=== PATIENT | female | born 1985 | race African-American/Black ===

== ENCOUNTER 2017-04-16 13:30 | Emergency (ER) | payer MEDICAID, SELFPAY ==
[2017-04-16 13:30] VITALS: BP 124/61; PULSE 90; RESP 16; TEMP 36.9; O2SAT 99; BMI 22.1
[2017-04-16 14:43] LABS: Absolute Lymphocyte Count 0.87 X10^3/ul (0.83-4.51); Absolute Neutrophil Count 3.5 X10^3/uL (2.0-7.7); Hematocrit 40.2 % (37-47); Hemoglobin 13.2 g/dl (12.0-15.0); Lymphocyte # 0.87 X10^3/ul (4.0); Lymphocyte % 17.8 % (19-41); Mean Corp Hgb Conc 32.8 g/gl (32-36); Mean Corpuscular Volume 85.4 fL (81-99); Mean Platelet Vol. 9.2 fl (6.2-12.0); Monocyte# 0.49 X10^3/uL; Neutrophil # 3.53 X10^3/uL (2.7-7.7); Neutrophil % 72.2 % (47-70); POSITIVE COUNT NO; POSITIVE DIFFERENTIAL NO; POSITIVE MORPHOLOGY NO; Platelet Count 165 K/mm3 (150-450); RBC Distribution Width CV 12.9 % (11.6-14.6); RBC Distribution Width SD 40.6 fl (35.1-43.9); Red Blood Count 4.71 M/mm3 (4.2-5.4); White Blood Count 4.9 K/mm3 (4.4-11.0)
[2017-04-16] MEDS: Dicyclomine 20 MG/2 ML Vial IM (14:43)
[2017-04-16] MEDS: 0.9% Normal Saline 1,000 ML 1000 ML IV (14:43)
[2017-04-16 15:00] LABS: Mucous, Urine 0 SEEN /hpf (<or=2+)
[2017-04-16 15:06] LABS: Anion Gap 8 (5-15); BUN 11 mg/dL (7-18); BUN/Creat Ratio 12.6 RATIO (10-20); Calcium,Total 8.6 mg/dL (8.5-10.1); Chloride 104 mmol/L (98-107); Creatinine, Serum 0.87 mg/dL (0.55-1.02); EST Glomerular Filtration Rate 81 mL/min (>60); Est Glom Filt Rate - Afr Amer 98 mL/min (>60); Estimated Creatinine Clearance 78.22 ml/min; Glucose 96 mg/dL (70-110); Potassium 3.6 mmol/L (3.5-5.1); Sodium Level 137 mmol/L (136-145)
[2017-04-16 15:10] LABS: Color, Urine Yellow (Yellow); Glucose, Dipstick Normal (Normal); Leukocyte Esterase-Dipstick 100 /ul (Negative); Nitrite-Dipstick Negative (Negative); Occult Blood-Urine 150 /ul (Negative); Protein-Dipstick 100 mg/dl (Negative); Specific Gravity, Urine 1.015 (1.002-1.030); Urine Bilirubin Dipstick Negative (Negative); Urine Clarity Sl. Cloudy (Clear); Urine Urobilinogen Normal (Normal)
[2017-04-16 15:10] LABS: Pregnancy, Serum, hCG Quali. NEGATIVE Negative (0-9 Nonpreg)
[2017-04-16 15:32] LABS: Ketone-Dipstick 150 mg/dl (Negative); Squamous Epithelial Cells - UA 10-25 SEEN /hpf (5-10); White Blood Cells 0-5 SEEN /hpf (0-5)
--- NOTE | 2017-04-16 15:32 | ED.RN ---
KETONES 150, MD AWARE.
[2017-04-16 15:35] LABS: Red Blood Cells-Urine 5-10 SEEN /hpf (0-5)
[2017-04-16 15:36] LABS: Bacteria RARE /hpf (None Seen)
--- NOTE | 2017-04-16 16:20 | ED.VISSUMM ---
- ER Visit Summary Date of Service: 04/16/17 Chief Complaint: [Vomiting and diarrhea] History of Present Illness: The patient is a 31 F [presents to the emergency department with vomiting that started 3 days ago. Patient was seen in the emergency department last evening and medicated until her nausea and vomiting resolved and was discharged home. Patient had some basic labs are were normal. Patient does have a history of cyclic vomiting syndrome and states that every couple of months she gets these attacks. Patient describes some diffuse abdominal cramping. She denies any fever.] Physical Examination: [HEENT-PERRLA, EOMI. Cranial nerves II through XII grossly intact. TMs clear. Mucous membranes moist. No adenopathy. Cardiovascular-regular rate and rhythm without murmur or ectopy Lungs-clear to auscultation, chest wall stable without crepitus or subcu emphysema Abdomen-normoactive bowel sounds, soft. Patient has some diffuse tenderness on palpation. There is no rebound, rigidity, or peritoneal signs.. Extremities-intact ?4, normal range of motion, normal pulses, atraumatic] Test Results: [CBC with it was normal. Chemistries were normal. Urinalysis was unremarkable other than 150 ketones. HCG was negative.] Emergency Department Course and Treatment: [Patient had a liter normal same fluid bolus given. Patient was given Phenergan. Patient continued complaint of dry heaves. Patient was then written for Ativan, Benadryl, and Thorazine.] Treatment Plan: [CARE patient will be turned over to evening physician awaiting repeat evaluation after treatment.] Disposition: [Pending] Impression: [Gastroenteritis Cyclic vomiting syndrome] This note was generated with [employer] dictation software. It may contain incorrect words, spelling, and punctuation that were not noted in review of the chart prior to signing ED Disposition - Plan for ED Patient: Chief Complaint: Nausea/Vomiting/Diarrhea Referrals: Sergio Grover DO [Primary Care Provider] -
[2017-04-16] MEDS: LORazepam 2 MG/ML Syringe 0.5 MG IV (17:19)
[2017-04-16] MEDS: Ondansetron 4 MG/2 ML Vial IV (17:19)
[2017-04-16 19:18] VITALS: BP 109/71; PULSE 96; RESP 14; O2SAT 100
--- NOTE | 2017-04-16 20:31 | ED.DEP ---
ED Disposition - Plan for ED Patient: Disposition: Home or Assisted Living Chief Complaint: Nausea/Vomiting/Diarrhea Instructions: ED Nausea Vomiting Referrals: Sergio Grover DO [Primary Care Provider] - As soon as possible
[2017-04-16 20:33] VITALS: RESP 16
== END 2017-04-16 21:26 | disposition home or self-care (01) ==
PROVIDERS: Emergency Provider Emergency Medicine; Family Provider Student in an Organized Health Care Education/Training Program; PCP Student in an Organized Health Care Education/Training Program
DX: K52.9 Noninfective gastroenteritis and colitis, unspecified (principal); G43.A0 Cyclical vomiting, in migraine, not intractable
CPT/HCPCS: 80048; 81001; 84703; 85025; 99283; J7050; A4216; J2405; J3490

== ENCOUNTER 2017-04-18 03:20 | Emergency (ER) | payer MEDICAID, SELFPAY ==
[2017-04-18 03:21] VITALS: BP 118/71; PULSE 61; RESP 20; TEMP 36.6; O2SAT 100; BMI 22.6
--- NOTE | 2017-04-18 03:32 | ED.DCSUM_ITS ---
- ER Visit Summary Date of Service: 04/18/17 Chief Complaint: [] Vomiting History of Present Illness: The patient is a 31 F [] complaining of nausea/ vomiting/diarrhea beginning 4 days ago. Patient reports a history of cyclic vomiting of unknown etiology. She reports nonproductive cough, myalgias, chills. Denies fevers. No other complaints at this time. Physical Examination: [] Middle-aged female in no acute distress. Cardiovascular exam is regular rate and rhythm. Lungs are clear to auscultation. Abdomen is soft and nontender. Test Results: [] CBC within normal limits. BMP within normal limits with exception of a potassium 3.0. Flu swab negative. Emergency Department Course and Treatment: [] Patient given intravenous fluids, Phenergan, Toradol. On serial exam patient required an additional dose of Phenergan. On repeat serial exam she had resolution of her cyclical vomiting and was amenable to discharge. Her low potassium is likely a manifestation of her vomiting. She was able to pass a p.o. challenge prior to discharge. She was given a single dose of KCl. She was encouraged to follow-up with her primary care physician. She was given a prescription for Phenergan. Treatment Plan: [] Follow-up with PCP. Disposition: [] Discharge, stable. Impression: [] Vomiting History of cyclical vomiting Hypokalemia This note was generated with [employer] dictation software. It may contain incorrect words, spelling, and punctuation that were not noted in review of the chart prior to signing ED Disposition - Plan for ED Patient: Chief Complaint: Nausea/Vomiting Referrals: Sergio Grover DO [Primary Care Provider] -
[2017-04-18 03:56] LABS: Absolute Lymphocyte Count 1.81 X10^3/ul (0.83-4.51); Absolute Neutrophil Count 3.1 X10^3/uL (2.0-7.7); Basophil# 0.04 X10^3/uL; Basophil% 0.7 % (0-1); Hematocrit 40.6 % (37-47); Hemoglobin 13.5 g/dl (12.0-15.0); Lymphocyte # 1.81 X10^3/ul (4.0); Lymphocyte % 30.9 % (19-41); Mean Corp Hgb Conc 33.3 g/gl (32-36); Mean Corpuscular Hgb 27.8 pg (27.0-32.0); Mean Corpuscular Volume 83.5 fL (81-99); Mean Platelet Vol. 9.1 fl (6.2-12.0); Monocyte# 0.87 X10^3/uL; Monocyte% 14.9 % (0-10); Neutrophil # 3.13 X10^3/uL (2.7-7.7); Neutrophil % 53.5 % (47-70); Platelet Count 159 K/mm3 (150-450); RBC Distribution Width CV 12.6 % (11.6-14.6); RBC Distribution Width SD 37.9 fl (35.1-43.9); Red Blood Count 4.86 M/mm3 (4.2-5.4); White Blood Count 5.9 K/mm3 (4.4-11.0)
[2017-04-18 04:00] LABS: POSITIVE COUNT NO; POSITIVE DIFFERENTIAL NO; POSITIVE MORPHOLOGY NO
[2017-04-18] MEDS: Ketorolac 15 MG/ML Vial IV (04:07)
[2017-04-18 04:08] LABS: Anion Gap 10 (5-15); BUN 8 mg/dL (7-18); BUN/Creat Ratio 9.9 RATIO (10-20); Calcium,Total 8.3 mg/dL (8.5-10.1); Chloride 103 mmol/L (98-107); EST Glomerular Filtration Rate 89 mL/min (>60); Est Glom Filt Rate - Afr Amer 107 mL/min (>60); Estimated Creatinine Clearance 85.06 ml/min; Glucose 97 mg/dL (70-110); Sodium Level 138 mmol/L (136-145)
[2017-04-18] MEDS: 0.9% Normal Saline 1,000 ML 1000 ML IV (04:09)
--- NOTE | 2017-04-18 05:35 | ED.DEP ---
ED Disposition - Plan for ED Patient: Disposition: Home or Assisted Living Chief Complaint: Nausea/Vomiting Instructions: ED Diet Vomiting Diarrhea Prescriptions: ProMETHAzine [Phenergan] 25 mg PO Q6H PRN PRN #15 tab PRN Reason: Nausea Referrals: Sergio Grover DO [Primary Care Provider] -
[2017-04-18 07:30] VITALS: BP 129/89; PULSE 74; RESP 15; TEMP 36.6; O2SAT 99
== END 2017-04-18 07:36 | disposition home or self-care (01) ==
PROVIDERS: Emergency Provider Emergency Medicine; Family Provider Student in an Organized Health Care Education/Training Program; PCP Student in an Organized Health Care Education/Training Program
DX: R11.2 Nausea with vomiting, unspecified (principal); E87.6 Hypokalemia; R19.7 Diarrhea, unspecified
CPT/HCPCS: 80048; 85025; 87804; 96361; 96374; 96375; 96376; 99285; J7030; A4216

== ENCOUNTER 2017-04-19 05:04 | Emergency (ER) | payer MEDICAID, SELFPAY ==
[2017-04-19 05:04] VITALS: BP 134/93; PULSE 58; RESP 20; TEMP 37.1; O2SAT 100; BMI 23.0
[2017-04-19] MEDS: 0.9% Normal Saline 1,000 ML 150 ML IV (05:57)
[2017-04-19 06:17] LABS: Anion Gap 10 (5-15); BUN 7 mg/dL (7-18); BUN/Creat Ratio 9.8 RATIO (10-20); Chloride 104 mmol/L (98-107); Creatinine, Serum 0.71 mg/dL (0.55-1.02); EST Glomerular Filtration Rate 102 mL/min (>60); Est Glom Filt Rate - Afr Amer 123 mL/min (>60); Estimated Creatinine Clearance 95.84 ml/min; Glucose 97 mg/dL (70-110); Potassium 3.3 mmol/L (3.5-5.1); Sodium Level 139 mmol/L (136-145)
[2017-04-19] MEDS: Dicyclomine 20 MG/2 ML Vial IM (07:05)
[2017-04-19 07:06] VITALS: BP 105/53; PULSE 61; RESP 14; O2SAT 96
--- NOTE | 2017-04-19 08:13 | ED.DCSUM_ITS ---
- ER Visit Summary Date of Service: 04/19/17 Chief Complaint: Nausea and vomiting History of Present Illness: The patient is a 31 F with a reported history of cyclic vomiting. Patient states she has had nausea and vomiting for the past 6 days. She had diarrhea early in the course of the illness, but none recently. She states her children at home are sick. She has been seen in the ER 3 times already this week for the same. Patient states she is trying the Phenergan suppositories but still having vomiting at home. Physical Examination: Vital signs are unremarkable. Patient's lying in bed no acute distress. Heart is regular rate and rhythm. Lungs are clear. Abdomen is soft with mild diffuse tenderness. There is no guarding or rebound. Hypoactive bowel sounds are noted. Test Results: Chemistry studies repeated today reveal potassium of 3.3. This is improved from a potassium of 3.0 yesterday. Emergency Department Course and Treatment: Patient is given IV fluids and Phenergan. On repeat evaluation she states her nausea is improved but she is having a lot of abdominal pain. She describes cramping and aching throughout. She is given a dose of Bentyl. On repeat evaluation she was willing to try ice chips. She states she was only able to take a couple of these and then her symptoms returned. At this time she will be given Compazine and Benadryl. If this is unsuccessful she will likely require another dose of Thorazine. Patient be signed out to oncoming physician for final recheck and disposition. Treatment Plan: [] Disposition: [] Impression: Cyclic vomiting This note was generated with [employer] dictation software. It may contain incorrect words, spelling, and punctuation that were not noted in review of the chart prior to signing ED Disposition - Plan for ED Patient: Chief Complaint: Nausea/Vomiting/Diarrhea Referrals: Sergio Grover DO [Primary Care Provider] -
[2017-04-19] MEDS: DiphenhydrAMINE 50 MG/ML Syringe 25 MG IV (08:31)
[2017-04-19] MEDS: proCHLORPERazine 10 MG/2 ML Vial IV (08:31)
--- NOTE | 2017-04-19 10:02 | ED.VISSUMM ---
- ER Visit Summary Date of Service: 04/19/17 Chief Complaint: [Vomiting] History of Present Illness: The patient is a 31 F [presented with vomiting and history of cyclic vomiting syndrome. Care of patient turned over to me this morning awaiting reevaluation after patient was medicated with antiemetics and given IV fluids. After her last dose of medications patient is able to tolerate p.o.'s and she is feeling improved. She has had no further vomiting. At this point patient would like to try to go home. Patient has no abdominal discomfort.] Physical Examination: [] Test Results: [] Emergency Department Course and Treatment: [] Treatment Plan: [We will give up prescription for Phenergan suppositories] Disposition: [Discharged home in stable condition] Impression: [Vomiting Cyclic vomiting syndrome] This note was generated with [email or web address] dictation software. It may contain incorrect words, spelling, and punctuation that were not noted in review of the chart prior to signing ED Disposition - Plan for ED Patient: Chief Complaint: Nausea/Vomiting/Diarrhea Referrals: Sergio Grover DO [Primary Care Provider] -
--- NOTE | 2017-04-19 10:04 | ED.DEP ---
ED Disposition - Plan for ED Patient: Chief Complaint: Nausea/Vomiting/Diarrhea Instructions: ED Diet Vomiting Diarrhea, ED Vomiting Diarrhea Nonspecific Ad Prescriptions: ProMETHAzine [Phenergan Suppository] 25 mg RECTAL Q6H PRN PRN #10 suppos. PRN Reason: Nausea Referrals: Sergio Grover DO [Primary Care Provider] - 3-5 Days
[2017-04-19 10:11] VITALS: BP 116/79; PULSE 84; RESP 16; O2SAT 98
== END 2017-04-19 10:12 | disposition home or self-care (01) ==
PROVIDERS: Emergency Provider Emergency Medicine; Family Provider Student in an Organized Health Care Education/Training Program; PCP Student in an Organized Health Care Education/Training Program
DX: G43.A0 Cyclical vomiting, in migraine, not intractable (principal); K58.9 Irritable bowel syndrome, unspecified; Z90.49 Acquired absence of other specified parts of digestive tract; Z87.898 Personal history of other specified conditions; Z87.891 Personal history of nicotine dependence; F12.90 Cannabis use, unspecified, uncomplicated
CPT/HCPCS: 80048; 96361; 96372; 96374; 96375; 99284; J7030; A4216

== ENCOUNTER 2017-04-20 00:38 | Emergency (ER) | payer MEDICAID, SELFPAY ==
[2017-04-20 00:39] VITALS: BP 137/93; PULSE 90; RESP 18; TEMP 37.3; O2SAT 98; BMI 22.0
[2017-04-20] MEDS: Ketorolac 15 MG/ML Vial IV (01:58)
[2017-04-20] MEDS: 0.9% Normal Saline 1,000 ML 1000 ML IV (01:58)
[2017-04-20 02:10] LABS: Anion Gap 8 (5-15); BUN 5 mg/dL (7-18); BUN/Creat Ratio 5.4 RATIO (10-20); Calcium,Total 8.3 mg/dL (8.5-10.1); Chloride 105 mmol/L (98-107); Creatinine, Serum 0.93 mg/dL (0.55-1.02); EST Glomerular Filtration Rate 75 mL/min (>60); Est Glom Filt Rate - Afr Amer 90 mL/min (>60); Estimated Creatinine Clearance 73.17 ml/min; Glucose 119 mg/dL (70-110); Potassium 3.9 mmol/L (3.5-5.1); Sodium Level 140 mmol/L (136-145)
[2017-04-20 03:12] VITALS: BP 104/65; PULSE 67; RESP 18; O2SAT 100
--- NOTE | 2017-04-20 03:15 | ED.VISSUMM ---
- ER Visit Summary Date of Service: 04/20/17 Chief Complaint: [] Nausea and vomiting History of Present Illness: The patient is a 31 F [] who is a frequent visitor to this emergency department with a history of cyclic vomiting presenting today with vomiting. Patient denies fevers. Reports diffuse general abdominal discomfort. No other complaints at this time. Physical Examination: [] Afebrile, vital signs stable. Young female no acute distress. Cardiovascular exam is regular rate and rhythm. Lungs are clear to auscultation. Abdomen is soft with mild diffuse tenderness. No guarding or rebound tenderness. Remainder of exam is unremarkable. Test Results: [] Basic metabolic panel is negative. Emergency Department Course and Treatment: [] Patient given intravenous fluids and Phenergan. On serial exam she had improvement of symptoms. She requested one additional dose of Phenergan and this request was granted. She is discharged to follow-up with her primary care physician. Treatment Plan: [] Follow-up with primary care physician. Disposition: [] Discharge, stable. Impression: [] Vomiting Abdominal pain History of cyclic vomiting This note was generated with [employer] dictation software. It may contain incorrect words, spelling, and punctuation that were not noted in review of the chart prior to signing ED Disposition - Plan for ED Patient: Chief Complaint: Nausea/Vomiting Referrals: Sergio Grover DO [Primary Care Provider] -
--- NOTE | 2017-04-20 03:17 | ED.DEP ---
ED Disposition - Plan for ED Patient: Disposition: Home or Assisted Living Chief Complaint: Nausea/Vomiting Instructions: ED Nausea Vomiting Referrals: Sergio Grover DO [Primary Care Provider] -
--- NOTE | 2017-04-20 03:28 | ED.RN ---
THIS RN TO BEDSIDE TO DISCHARGE PATIENT. PATIENT STATES THAT SHE WANTS TO BE ADMITTED, DR. ESTRADA MADE AWARE.
[2017-04-20 03:40] VITALS: PULSE 67; RESP 16; O2SAT 100
== END 2017-04-20 03:40 | disposition home or self-care (01) ==
PROVIDERS: Emergency Provider Emergency Medicine; Family Provider Student in an Organized Health Care Education/Training Program; PCP Student in an Organized Health Care Education/Training Program
DX: R10.9 Unspecified abdominal pain (principal); G43.A0 Cyclical vomiting, in migraine, not intractable
CPT/HCPCS: 80048; 99283; J7030; A4216

== ENCOUNTER 2017-05-02 15:24 | Emergency (ER) | payer MEDICAID, SELFPAY ==
[2017-05-02 15:26] VITALS: BP 118/83; PULSE 83; RESP 18; TEMP 36.7; O2SAT 100; BMI 23.6
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
[2017-05-02] MEDS: Ibuprofen 600 MG Tablet PO (16:28)
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
[2017-05-02 17:01] VITALS: BP 116/77; PULSE 85; RESP 16; O2SAT 99
== END 2017-05-02 17:01 | disposition home or self-care (01) ==
PROVIDERS: Emergency Provider Emergency Medicine; Family Provider Student in an Organized Health Care Education/Training Program; PCP Student in an Organized Health Care Education/Training Program
DX: S09.90XA Unspecified injury of head, initial encounter (principal); S16.1XXA Strain of muscle, fascia and tendon at neck level, initial encounter; S29.011A Strain of muscle and tendon of front wall of thorax, initial encounter; V53.5XXA Driver of pick-up truck or van injured in collision with car, pick-up truck or van in traffic accident, initial encounter; Y93.9 Activity, unspecified; Y92.410 Unspecified street and highway as the place of occurrence of the external cause; Y99.8 Other external cause status
CPT/HCPCS: 71046; 99284

== ENCOUNTER 2017-06-15 14:31 | Emergency (ER) | payer MEDICAID, SELFPAY ==
[2017-06-15 14:34] VITALS: BP 111/97; PULSE 67; RESP 16; TEMP 36.6; O2SAT 97; BMI 21.5
[2017-06-15] MEDS: LORazepam 2 MG/ML Syringe 0.5 MG IV (15:18)
[2017-06-15] MEDS: 0.9% Normal Saline 1,000 ML 1000 ML IV (15:18)
[2017-06-15] MEDS: Ondansetron 4 MG/2 ML Vial IV (15:18)
[2017-06-15 15:29] LABS: Anion Gap 13 (5-15); BUN 14 mg/dL (7-18); BUN/Creat Ratio 14.5 RATIO (10-20); Calcium,Total 9.2 mg/dL (8.5-10.1); Chloride 106 mmol/L (98-107); Creatinine, Serum 0.96 mg/dL (0.55-1.02); EST Glomerular Filtration Rate 72 mL/min (>60); Est Glom Filt Rate - Afr Amer 87 mL/min (>60); Estimated Creatinine Clearance 70.88 ml/min; Glucose 132 mg/dL (74-106); Potassium 3.3 mmol/L (3.5-5.1); Sodium Level 142 mmol/L (136-145)
[2017-06-15 15:42] LABS: Pregnancy, Serum, hCG Quali. NEGATIVE Negative (0-9 Nonpreg)
--- NOTE | 2017-06-15 15:52 | ED.DCSUM_ITS ---
- ER Visit Summary Date of Service: 06/15/17 Chief Complaint: Nausea, vomiting, diarrhea History of Present Illness: The patient is a 31 F who reports a history of cyclic vomiting. Patient states that she was nervous about an upcoming trip to [place] and took a dose of her Zoloft yesterday. She states she does not take it regularly because it makes her ill. She also used marijuana. She reports having nausea, vomiting, and diarrhea since that time. She tried taking Phenergan at home but was unable to keep it down. She denies fever but does report generalized abdominal pain. Patient has had prior cholecystectomy. She denies possibility of . Physical Examination: Vital signs are unremarkable. Patient's resting comfortably in no acute distress. Head neck examination is unremarkable. She does have moist mucous membranes. Heart is regular rate and rhythm. Lung sounds are clear. Abdomen is soft with mild diffuse tenderness to palpation. There is no guarding or rebound. Hypoactive bowel sounds are present throughout. Test Results: Chemistry studies are significant for potassium slightly low at 3.3. Her glucose is 132. test is negative. Emergency Department Course and Treatment: Patient is given IV fluids, Zofran, and Ativan. On repeat evaluation she is resting comfortably. She is easily awoken. She reports that she feels improved but still has some nausea. She be a prescription for Zofran ODT at home. Treatment Plan: [] Disposition: Discharge Impression: Vomiting, improved This note was generated with [employer] dictation software. It may contain incorrect words, spelling, and punctuation that were not noted in review of the chart prior to signing ED Disposition - Plan for ED Patient: Chief Complaint: Nausea/Vomiting/Diarrhea Referrals: Sergio Grover DO [Primary Care Provider] -
[2017-06-15 15:55] VITALS: BP 91/60; PULSE 100; RESP 16; O2SAT 97
--- NOTE | 2017-06-15 16:00 | ED.DEP ---
ED Disposition - Plan for ED Patient: Disposition: Home or Assisted Living Chief Complaint: Nausea/Vomiting/Diarrhea Instructions: ED Nausea Vomiting Prescriptions: Ondansetron [Zofran Odt] 4 mg PO Q8H PRN PRN #10 tablet PRN Reason: Nausea Referrals: Sergio Grover DO [Primary Care Provider] - 5-7 Days Additional Instructions: Refrain from using marijuana as this can worsen your nausea and vomiting.
[2017-06-15 16:13] VITALS: BP 92/68; PULSE 100; RESP 16; O2SAT 97
== END 2017-06-15 16:40 | disposition home or self-care (01) ==
PROVIDERS: Emergency Provider Emergency Medicine; Family Provider Student in an Organized Health Care Education/Training Program; PCP Student in an Organized Health Care Education/Training Program
DX: R11.2 Nausea with vomiting, unspecified (principal); R19.7 Diarrhea, unspecified; R10.9 Unspecified abdominal pain; Z90.49 Acquired absence of other specified parts of digestive tract
CPT/HCPCS: 80048; 84703; 96361; 96374; 96375; 99283; J7030; J2405

== ENCOUNTER 2017-06-16 16:00 | Emergency (ER) | payer MEDICAID, SELFPAY ==
[2017-06-16 16:02] VITALS: BP 141/93; PULSE 71; RESP 16; TEMP 37.1; O2SAT 100; BMI 20.7
--- NOTE | 2017-06-16 16:44 | ED.VISSUMM ---
- ER Visit Summary Date of Service: 06/16/17 Chief Complaint: Nausea, vomiting History of Present Illness: The patient is a 31 F history of cyclic vomiting syndrome presents to the emergency department nausea and vomiting. Patient thinks it is related to her starting her Zoloft. She had a trip coming up and was feeling very anxious about it. She started taking her Zoloft on Friday. That is when her vomiting started. She was also using marijuana onset she denies any fevers or chills. The patient was actually seen here yesterday. She was treated with fluids and medications with some improvement, but she states it was transient. The vomiting started again this morning. She does have some cramping abdominal pain. She denies any diarrhea. She denies any fevers or chills. The patient has had multiple significant workups for this and there has never been acute etiology found. Physical Examination: Vital signs reviewed General: Well-nourished, well-developed Head: Normocephalic, atraumatic Eyes: Pupils equal and reactive, extraocular muscles intact Neck, supple, no lymphadenopathy Heart: Regular rate and rhythm Respiratory: No distress, clear bilaterally Abdomen: Soft, nontender, nondistended, no peritoneal signs Back: Nontender Extremities: Nontender, no edema, no cords Skin: Normal color no rash Neuro: Alert and oriented, no focal or lateralizing deficits Test Results: [] Emergency Department Course and Treatment: The patient has a history of cyclic vomiting syndrome. IV was established. She was placed on cyclic vomiting protocol. She continued to have nausea despite the Ativan and Zofran. She was given Thorazine and Benadryl. Labs were obtained were unremarkable. Her abdomen is benign. On reevaluation, her nausea has abated. She was able to drink without issue. At this time, I do for the patient is safe for discharge. She will be prescribed Phenergan. She will return with any worsening symptoms. Treatment Plan: [] Disposition: Discharge Impression:. Exacerbation of cyclic vomiting syndrome This note was generated with [employer] dictation software. It may contain incorrect words, spelling, and punctuation that were not noted in review of the chart prior to signing ED Disposition - Plan for ED Patient: Disposition: Home or Assisted Living Chief Complaint: Nausea/Vomiting Instructions: ED Nausea Vomiting Prescriptions: proMETHazine suppository [Phenergan Suppository] 25 mg RECTAL Q6H PRN PRN #6 suppos. PRN Reason: Nausea Referrals: Sergio Grover DO [Primary Care Provider] -
[2017-06-16] MEDS: Lactated Ringers 1,000 ML 999 ML IV (16:55)
[2017-06-16] MEDS: LORazepam 2 MG/ML Syringe 1 MG IV (17:01)
[2017-06-16] MEDS: Ondansetron 4 MG/2 ML Vial IV (17:01)
[2017-06-16 17:14] LABS: Absolute Lymphocyte Count 2.15 X10^3/ul (0.83-4.51); Absolute Neutrophil Count 9.3 X10^3/uL (2.0-7.7); Basophil# 0.02 X10^3/uL; Basophil% 0.2 % (0-1); Eosinophil# 0.01 X10^3/uL; Eosinophils% 0.1 % (0-5); Hematocrit 38.9 % (37-47); Hemoglobin 13.5 g/dl (12.0-15.0); Lymphocyte # 2.15 X10^3/ul (4.0); Lymphocyte % 17.5 % (19-41); Mean Corp Hgb Conc 34.7 g/gl (32-36); Mean Corpuscular Hgb 29.5 pg (27.0-32.0); Mean Corpuscular Volume 85.1 fL (81-99); Mean Platelet Vol. 9.3 fl (6.2-12.0); Monocyte# 0.74 X10^3/uL; Neutrophil # 9.31 X10^3/uL (2.7-7.7); Platelet Count 274 K/mm3 (150-450); RBC Distribution Width CV 13.1 % (11.6-14.6); RBC Distribution Width SD 40.3 fl (35.1-43.9); Red Blood Count 4.57 M/mm3 (4.2-5.4); White Blood Count 12.3 K/mm3 (4.4-11.0)
[2017-06-16 17:16] LABS: POSITIVE COUNT NO; POSITIVE DIFFERENTIAL NO; POSITIVE MORPHOLOGY NO
[2017-06-16 17:36] LABS: ALB/GLOB Ratio 1.1 RATIO (0.9-2.4); AST(SGOT) 27 U/L (15-37); Alanine Aminotransfer ALT/SGPT 28 U/L (13-56); Albumin, Serum 4.3 g/dL (3.2-5.0); Alkaline Phosphatase 64 U/L (45-117); Anion Gap 11 (5-15); BUN 13 mg/dL (7-18); BUN/Creat Ratio 15.2 RATIO (10-20); Chloride 103 mmol/L (98-107); Creatinine, Serum 0.86 mg/dL (0.55-1.02); EST Glomerular Filtration Rate 82 mL/min (>60); Est Glom Filt Rate - Afr Amer 99 mL/min (>60); Glucose 101 mg/dL (74-106); Potassium 3.3 mmol/L (3.5-5.1); Protein, Total 8.3 g/dL (6.4-8.2); Sodium Level 139 mmol/L (136-145)
[2017-06-16 18:48] VITALS: BP 121/69; PULSE 70; RESP 16; O2SAT 98
== END 2017-06-16 18:49 | disposition home or self-care (01) ==
PROVIDERS: Emergency Provider Emergency Medicine; Family Provider Student in an Organized Health Care Education/Training Program; PCP Student in an Organized Health Care Education/Training Program
DX: G43.A0 Cyclical vomiting, in migraine, not intractable (principal)
CPT/HCPCS: 80053; 85025; 96361; 96374; 96375; 99282; A4216; J2405; J3490

== ENCOUNTER 2017-06-18 06:50 | Emergency (ER) | payer MEDICAID, SELFPAY ==
[2017-06-18 06:51] VITALS: BP 124/97; PULSE 94; RESP 20; TEMP 36.8; O2SAT 95; BMI 21.2
--- NOTE | 2017-06-18 07:16 | ED.VISSUMM ---
- ER Visit Summary Date of Service: 06/18/17 Chief Complaint: Abdominal pain with nausea and vomiting History of Present Illness: The patient is a 31 F who is had numerous visits for abdominal pain nausea vomiting since beginning year and latter part of 2017. Patient reports throbbing global headache. She denies photophobia, stiffness of her neck, or any change in vision. She reports the abdominal pain is not different than prior episodes. She denies blood or coffee-ground emesis. She denies black or maroon stool. Last bowel movement. It was yesterday. She denies fever, chills night sweats. Uncertain whether she has had weight loss. She denies any dysuria, frequency, urgency or hematuria. Physical Examination: Vital signs are normal. During the history and physical there was no eye contact. Matter fact she opened her eyes only once. Head is atraumatic nor cephalic. Pupils equal reactive. Extra muscles are intact. TMs are normal. Mucosa appears to be moist. Uncertain whether this is due to the fact that she recently attempted to drink something or vomited. Heart is regular without murmur, gallop or rub. S1 and S2 are normal. Lungs are clear to auscultation with good movement of air bilaterally. Abdomen is scaphoid with diminished bowel sounds. Patient has pain out of proportion to tactile stimuli. There are no dermatologic lesions noted. Patient is alert and oriented ?3. Motor is 5 over 5. Sensory is intact. DTRs are symmetric with no clonus or Babinski sign. Cranial 2 through 12 are intact. Cerebellar testing is normal. Test Results: Urine is positive for ketones. Specific gravity is 1.015. Emergency Department Course and Treatment: Cyclic vomiting order set was initiated. UA was obtained to assess specific gravity and ketones. She reports she has never been seen at behavioral health services. She was under the care of Dr. Oliver prior to him relocating. She has not seen anyone for her cyclic vomiting recently. Since there is no determine etiology for prior workups and the fact that she had no eye contact and her abdominal exam is disproportionate to tactile stimuli will check behavior health if she is willing to follow-up. Treatment Plan: Patient failed p.o. challenge after stage I of cyclic vomiting order set. She was administered the meds for stage II. She has been observed for greater than 6 hours with no vomiting since the first episode. We gave her health did see her. Krishan informed me that she has been anxious and canceled a family trip because of the nausea vomiting. She is receptive to speak with personnel at [facility]. Disposition: Discharged home in stable improved condition with outpatient [facility] referral Impression: 1. Abdominal pain with nausea and vomiting secondary to cyclic vomiting 2. Anxiety 3. Suspect undiagnosed affective disorder This note was generated with [employer] dictation software. It may contain incorrect words, spelling, and punctuation that were not noted in review of the chart prior to signing ED Disposition - Plan for ED Patient: Disposition: Home or Assisted Living Chief Complaint: Nausea/Vomiting Instructions: When Your Child Has Cyclic Vomiting Syndrome ([facility]) Referrals: Sergio Grover DO [Primary Care Provider] - [facility] [GROUP OF PHYSICIANS] - 3-5 Days Additional Instructions: Recommend follow-up with Krishan at [facility] to help with your abdominal pain and cyclic vomiting
[2017-06-18 07:32] LABS: Color, Urine Yellow (Yellow); Glucose, Dipstick Normal (Normal); Leukocyte Esterase-Dipstick 25 /ul (Negative); Nitrite-Dipstick Negative (Negative); Occult Blood-Urine 250 /ul (Negative); Protein-Dipstick 30 mg/dl (Negative); Specific Gravity, Urine 1.015 (1.002-1.030); Urine Clarity Clear (Clear); Urine Urobilinogen 8 mg/dl (Normal)
[2017-06-18] MEDS: Ondansetron 4 MG/2 ML Vial IV (07:32)
[2017-06-18] MEDS: LORazepam 2 MG/ML Syringe 0.5 MG IV (07:32)
[2017-06-18 07:34] LABS: Urine Bilirubin Dipstick 1 mg/dL (Negative)
[2017-06-18 07:35] LABS: Ketone-Dipstick 150 mg/dl (Negative)
--- NOTE | 2017-06-18 07:35 | ED.RN ---
MD AWARE OF URINE KETONES, 150.
--- NOTE | 2017-06-18 09:20 | BH.NOTE ---
BH: Inpatient Note - Notes Behavioral Health Inpatient Note: 06/18/17 09:20 Referred to [facility] Behavioral Health due to anxiety exacerbating medical symptoms. Met with pt in her room. Pt reports significant pain and nausea for the past 3 days. Pt is laying in bed with eyes closed and appears to be in pain. She denies any suicidal ideations, plan, or intent. Reports hx of PTSD and Anxiety. [facility] not currently linked. Reports that counseling and psychiatry were not helpful. She does see a correlation between worry, stress, and her somatic symptoms. Reports that she had been planning a trip to [facility] this past weekend to visit family, however had to cancel due to illness. She reports that she was looking forward to the trip. She is also able to identify anxiety and stress preceding previous N/V episodes. Indicates that anxiety and stress could exacerbate symptoms however they do not cause symptoms. She would not elaborate on trauma that led to PTSD. We discussed how counseling could be beneficial to anxiety and in turn her somatic symptoms. We talked about [facility] IOP and other agencies in the area. She was given a list of referrals and IOP brochure. Will follow up with her this week.
[2017-06-18] MEDS: Dext 5%-0.45% NS 1,000 ML 250 ML IV (09:28)
--- NOTE | 2017-06-18 12:05 | ED.RN ---
pt sleeping. no emesis noted since po fluid challenge.
== END 2017-06-18 13:45 | disposition home or self-care (01) ==
PROVIDERS: Emergency Provider Emergency Medicine; Family Provider Student in an Organized Health Care Education/Training Program; PCP Student in an Organized Health Care Education/Training Program
DX: G43.A0 Cyclical vomiting, in migraine, not intractable (principal); F41.9 Anxiety disorder, unspecified
CPT/HCPCS: 81002; 96361; 96374; 96375; 99282; J7040; A4216; J2405; J3490; J7799

== ENCOUNTER 2017-06-19 02:45 | Emergency (ER) | payer MEDICAID, SELFPAY ==
[2017-06-19 02:46] VITALS: BP 156/117; PULSE 105; RESP 20; TEMP 36.6; O2SAT 100; BMI 21.1
[2017-06-19] MEDS: LORazepam 2 MG/ML Syringe 0.5 MG IV (03:26)
[2017-06-19] MEDS: Ondansetron 4 MG/2 ML Vial IV (03:26)
--- NOTE | 2017-06-19 04:52 | ED.DCSUM_ITS ---
- ER Visit Summary Date of Service: 06/19/17 Chief Complaint: Abdominal pain, nausea and vomiting History of Present Illness: The patient is a 31 F who again presents with similar symptoms to earlier in the week. She continues to have nausea and vomiting. She also has abdominal pain. She states that she has taken her home Phenergan and Zofran which has not been working. No diarrhea or urinary symptoms. She has a history of cyclical vomiting syndrome. Earlier in the week it was noted that she was anxious about a trip she took Zoloft and she was contributing her symptoms to the Zoloft. Today she says she does not know why she continues to have these symptoms. Physical Examination: Vital signs reviewed. HEENT exam unremarkable. Heart is regular rate and rhythm without murmurs. Lungs are clear to auscultation. Abdomen is soft with diffuse tenderness to palpation. Extremities reveal no edema. Skin exam normal. Neurologic exam normal. Test Results: None indicated Emergency Department Course and Treatment: Patient was treated with Ativan and Zofran. She continued to have discomfort so she was given Thorazine and Benadryl per cyclical vomiting syndrome protocol Treatment Plan: The past 2 times and I reevaluated the patient she has been sleeping. When I wake her she states that she still does not feel well. She was seeing a GI physician however she has not seen one recently. I told her that she needs to reestablish care with 1. She thinks that it is something else going on. However, with the negative testing she has had over the past week I doubt that there is anything going on other than her normal cyclical vomiting syndrome. At this point the patient can be discharged home. She has not had any new vomiting that I can see. She has Phenergan, Zofran and Phenergan suppositories that she can use at home. I will give her a GI physician that she can follow-up with Disposition: Discharge Impression: Cyclical vomiting This note was generated with [employer] dictation software. It may contain incorrect words, spelling, and punctuation that were not noted in review of the chart prior to signing ED Disposition - Plan for ED Patient: Chief Complaint: Nausea/Vomiting Referrals: Sergio Grover DO [Primary Care Provider] -
--- NOTE | 2017-06-19 04:52 | ED.DEP ---
ED Disposition - Plan for ED Patient: Disposition: Home or Assisted Living Chief Complaint: Nausea/Vomiting Instructions: ED Nausea Vomiting Referrals: Sergio Grover DO [Primary Care Provider] - Rico Lemos MD [STAFF PHYSICIAN] -
[2017-06-19 04:53] VITALS: BP 97/72; PULSE 93; RESP 16; O2SAT 97
[2017-06-19 05:09] VITALS: BP 97/72; PULSE 92; RESP 16; O2SAT 98
== END 2017-06-19 05:38 | disposition home or self-care (01) ==
PROVIDERS: Emergency Provider Emergency Medicine; Family Provider Student in an Organized Health Care Education/Training Program; PCP Student in an Organized Health Care Education/Training Program
DX: G43.A0 Cyclical vomiting, in migraine, not intractable (principal)
CPT/HCPCS: 96374; 96375; 99285; J7050; A4216; J2405; J3490

== ENCOUNTER 2017-12-25 10:48 | Emergency (ER) | payer MEDICAID, SELFPAY ==
[2017-12-25 10:50] VITALS: BP 136/85; PULSE 108; RESP 16; TEMP 36.8; O2SAT 99; BMI 23.0
--- NOTE | 2017-12-25 11:01 | EKG12_ITS ---
Test Reason : CHEST PAIN Blood Pressure : / mmHG Vent. Rate : 093 BPM Atrial Rate : 093 BPM P-R Int : 148 ms QRS Dur : 070 ms QT Int : 334 ms P-R-T Axes : 077 068 068 degrees QTc Int : 415 ms Normal sinus rhythm Biatrial enlargement Abnormal ECG Confirmed by PATY JIMENEZ, LEXA ([id number]), features editor CAMILO STOREY ([id number]) on 12/29/2017 2:26:23 PM Referred By: PELON/PRAFUL Confirmed By:LEXA NEWMAN MD
--- NOTE | 2017-12-25 11:04 | ED.VISSUMM ---
- ER Visit Summary Date of Service: 12/25/17 Chief Complaint: [] Burning epigastric pain abdominal cramps for 2-3 days History of Present Illness: The patient is a 32 F [] of cyclic vomiting syndrome, chronic abdominal discomfort, reports for the last 2 or 3 days she has had a burning epigastric pain in a continuous fashion, and abdominal cramps, she has had some bowel movements no blood she had nausea but no vomiting she initially thought all of this was related to her reflux or acid disorder, she has history of prior EGDs and colonoscopies per GI there were unremarkable for workup of the cyclic vomiting syndrome, she has implantable control and does not believe she is and her habits have been normal she is able to eat. She has no history of VT PE DVT or risk factors Physical Examination: [] Her vital signs are within normal range she is resting comforting the bed head neck chest unremarkable the lungs are clear the heart tones are normal the abdomen is soft she complains of diffuse crampy abdominal discomfort but there is no rebound guarding organomegaly or focal pain she has had this before her back upper lower extremity skin pulses are normal extremities show no cyanosis, clubbing or edema the pain is not associate with food or activity, and she is screened negative for risk for PE Test Results: [] Emergency Department Course and Treatment: [] EKG shows a sinus rhythm nothing acute screening labs are obtained, but are all generally unremarkable, she is not been able to provide urinalysis her chest x-ray is unremarkable per radiology, on reevaluation her examinations are unremarkable she is resting comforting the bed no distress, reports she is feeling much better, the abdomen soft nontender I explained all the above to her I explained that the burning epigastric pain she has for a few days shows no signs of being of cardiac origin as her troponin is negative she has had symptoms continuously for days, she then began having the abdominal cramps and she has a history of the above related to her cyclic vomiting syndrome and she had extensive prior GI evaluation as above. At this time of asked her to continue all of her GI therapies that she has been provided by her outpatient providers, a bland diet to follow-up with them and return for change in symptoms she agrees and understands further she may need to see her housekeeping cleaner if she continues to have abdominal cramps and epigastric burning Treatment Plan: [] Disposition: [] Home stable Impression: [] Burning epigastric pain and abdominal cramps for 2 or 3 days This note was generated with [employer] dictation software. It may contain incorrect words, spelling, and punctuation that were not noted in review of the chart prior to signing ED Disposition - Plan for ED Patient: Chief Complaint: Chest Pain Instructions: Abdominal Pain, ED Chest Pain Atypical Unkn Cause Referrals: Sergio Grover DO [Primary Care Provider] -
--- NOTE | 2017-12-25 11:08 | ED.DCSUM_ITS ---
- ER Visit Summary Date of Service: 12/25/17 Chief Complaint: [] Burning epigastric pain abdominal cramps for 2-3 days History of Present Illness: The patient is a 32 F [] of cyclic vomiting syndrome, chronic abdominal discomfort, reports for the last 2 or 3 days she has had a burning epigastric pain in a continuous fashion, and abdominal cramps, she has had some bowel movements no blood she had nausea but no vomiting she initially thought all of this was related to her reflux or acid disorder, she has history of prior EGDs and colonoscopies per GI there were unremarkable for workup of the cyclic vomiting syndrome, she has implantable control and does not believe she is and her habits have been normal she is able to eat. She has no history of IA PE DVT or risk factors Physical Examination: [] Her vital signs are within normal range she is resting comforting the bed head neck chest unremarkable the lungs are clear the heart tones are normal the abdomen is soft she complains of diffuse crampy abdominal discomfort but there is no rebound guarding organomegaly or focal pain she has had this before her back upper lower extremity skin pulses are normal extremities show no cyanosis, clubbing or edema the pain is not associate with food or activity, and she is screened negative for risk for PE Test Results: [] Emergency Department Course and Treatment: [] EKG shows a sinus rhythm nothing acute screening labs are obtained, but are all generally unremarkable, she is not been able to provide urinalysis her chest x-ray is unremarkable per radiology, on reevaluation her examinations are unremarkable she is resting comforting the bed no distress, reports she is feeling much better, the abdomen soft nontender I explained all the above to her I explained that the burning epigastric pain s he has for a few days shows no signs of being of cardiac origin as her troponin is negative she has had symptoms continuously for days, she then began having the abdominal cramps and she has a history of the above related to her cyclic vomiting syndrome and she had extensive prior GI evaluation as above. At this time of asked her to continue all of her GI therapies that she has been provided by her outpatient providers, a bland diet to follow-up with them and return for change in symptoms she agrees and understands further she may need to see her shrink pit supervisor if she continues to have abdominal cramps and epigastric burning Treatment Plan: [] Disposition: [] Home stable Impression: [] Burning epigastric pain and abdominal cramps for 2 or 3 days This note was generated with [employer] dictation software. It may contain incorrect words, spelling, and punctuation that were not noted in review of the chart prior to signing ED Disposition - Plan for ED Patient: Chief Complaint: Chest Pain Instructions: Abdominal Pain, ED Chest Pain Atypical Unkn Cause Referrals: Sergio Grover DO [Primary Care Provider] -
--- NOTE | 2017-12-25 11:11 | RAD_ITS ---
STUDY: X-RAY CHEST REASON FOR EXAM: Female, 32 years old. Chest pain TECHNIQUE: Single AP portable view of the chest. COMPARISON: 05/02/2017 FINDINGS: The lungs are clear and expanded. There is no demonstrated pleural abnormality. Normal size heart. Normal mediastinum and yvonne. Normal visualized pulmonary arteries. Normal visualized aortic arch and descending thoracic aorta. Normal visualized thoracic spine. Normal visualized ribs, clavicles, and shoulders. There is no demonstrated abnormality of the visualized soft tissue structures of the upper abdomen. RAD/Chest 1 View (Portable) IMPRESSION: Normal x-ray examination of the chest. Electronically Signed: Jaime Cantrell DO at 11:38 EDT Tel , Service support ,
[2017-12-25] MEDS: 0.9% Normal Saline 1,000 ML 1000 ML IV (11:30)
[2017-12-25] MEDS: Morphine 4 MG/ML Syringe IV (11:30)
[2017-12-25] MEDS: Ondansetron 4 MG/2 ML Vial IV ×2 (11:30→13:21)
[2017-12-25 11:32] VITALS: O2SAT 97
[2017-12-25] MEDS: Mag Hydrox/Al Hydrox/Simeth 30 ML UDC PO (11:41)
[2017-12-25 11:47] LABS: Absolute Lymphocyte Count 2.01 X10^3/ul (0.83-4.51); Absolute Neutrophil Count 4.2 X10^3/uL (2.0-7.7); Basophil# 0.01 X10^3/uL; Basophil% 0.1 % (0-1); Eosinophil# 0.08 X10^3/uL; Eosinophils% 1.2 % (0-5); Hemoglobin 12.5 g/dl (12.0-15.0); Lymphocyte # 2.01 X10^3/ul (4.0); Lymphocyte % 29.1 % (19-41); Mean Corp Hgb Conc 33.8 g/gl (32-36); Mean Corpuscular Hgb 29.3 pg (27.0-32.0); Mean Corpuscular Volume 86.7 fL (81-99); Mean Platelet Vol. 9.2 fl (6.2-12.0); Monocyte# 0.64 X10^3/uL; Monocyte% 9.3 % (0-10); Neutrophil # 4.16 X10^3/uL (2.7-7.7); Neutrophil % 60.2 % (47-70); POSITIVE COUNT NO; POSITIVE DIFFERENTIAL NO; POSITIVE MORPHOLOGY NO; Platelet Count 218 K/mm3 (150-450); RBC Distribution Width CV 12.4 % (11.6-14.6); RBC Distribution Width SD 38.6 fl (35.1-43.9); Red Blood Count 4.27 M/mm3 (4.2-5.4); White Blood Count 6.9 K/mm3 (4.4-11.0)
[2017-12-25 12:01] LABS: AST(SGOT) 14 U/L (15-37); Alanine Aminotransfer ALT/SGPT 26 U/L (13-56); Albumin, Serum 3.8 g/dL (3.2-5.0); Alkaline Phosphatase 75 U/L (45-117); Anion Gap 8 (5-15); BUN 8 mg/dL (7-18); BUN/Creat Ratio 9.3 RATIO (10-20); Calcium,Total 9.1 mg/dL (8.5-10.1); Chloride 106 mmol/L (98-107); Creatinine, Serum 0.86 mg/dL (0.55-1.02); EST Glomerular Filtration Rate 82 mL/min (>60); Est Glom Filt Rate - Afr Amer 99 mL/min (>60); Estimated Creatinine Clearance 78.41 ml/min; Globulin 4.1 g/dL (2.2-4.2); Glucose 84 mg/dL (74-106); Lipase 69 U/L (73-393); Potassium 3.5 mmol/L (3.5-5.1); Protein, Total 7.9 g/dL (6.4-8.2); Sodium Level 140 mmol/L (136-145)
[2017-12-25 12:03] VITALS: BP 91/50; PULSE 59; RESP 16; O2SAT 97
[2017-12-25 12:05] LABS: Pregnancy, Serum, hCG Quali. NEGATIVE Negative (0-9 Nonpreg)
--- NOTE | 2017-12-25 12:39 | ED.DEP ---
ED Disposition - Plan for ED Patient: Chief Complaint: Chest Pain Instructions: ED Chest Pain Atypical Unkn Cause, Abdominal Pain Referrals: Sergio Grover DO [Primary Care Provider] -
[2017-12-25 12:43] LABS: Red Blood Cells-Urine 0 SEEN /hpf (0-5)
[2017-12-25 12:45] LABS: Color, Urine Yellow (Yellow); Glucose, Dipstick Normal (Normal); Ketone-Dipstick 15 mg/dl (Negative); Leukocyte Esterase-Dipstick 25 /ul (Negative); Nitrite-Dipstick Negative (Negative); Occult Blood-Urine 50 /ul (Negative); Protein-Dipstick Negative (Negative); Urine Bilirubin Dipstick Negative (Negative); Urine Clarity Clear (Clear); Urine Urobilinogen Normal (Normal)
[2017-12-25 13:05] VITALS: BP 86/72; PULSE 68; RESP 16; O2SAT 97
[2017-12-25 13:09] LABS: Bacteria RARE /hpf (None Seen); Mucous, Urine 2+ /hpf (<or=2+); Squamous Epithelial Cells - UA 0-5 SEEN /hpf (5-10); White Blood Cells 0-5 SEEN /hpf (0-5)
[2017-12-25] MEDS: 0.9% Normal Saline 1,000 ML 999 ML IV (13:18)
[2017-12-25 14:44] VITALS: BP 100/63; PULSE 73; RESP 16; O2SAT 100
== END 2017-12-25 14:45 | disposition home or self-care (01) ==
LOC: ED 11:42
PROVIDERS: Emergency Provider Emergency Medicine; Family Provider Student in an Organized Health Care Education/Training Program; PCP Student in an Organized Health Care Education/Training Program
DX: R10.13 Epigastric pain (principal); R07.9 Chest pain, unspecified
CPT/HCPCS: 71045; 80048; 80076; 81001; 83690; 84484; 84703; 85025; 93005; 99285; J2405

== ENCOUNTER 2017-12-26 11:05 | Emergency (ER) | payer MEDICAID, SELFPAY ==
[2017-12-26 11:07] VITALS: BP 108/69; PULSE 82; RESP 18; TEMP 36.9; O2SAT 99; BMI 23.0
--- NOTE | 2017-12-26 11:31 | ED.VISSUMM ---
- ER Visit Summary Date of Service: 12/26/17 Chief Complaint: Epigastric abdominal pain History of Present Illness: The patient is a 32 F past medical history of cyclic vomiting. Patient complaining of epigastric abdominal pain for the last 3 days. Started on Friday night. Associated nausea. Some diarrhea. No fever. No melena. She was seen in the ER yesterday had extensive workup including a normal CBC, BMP, liver enzymes, lipase, troponin and test all were negative. She has had upper and lower endoscopy in the past but none recently. She denies any hematemesis or abdominal trauma. Physical Examination: Appearing female. Vital signs are stable and afebrile. HEENT exam unremarkable. Neck nontender. Lungs clear to auscultation bilaterally. Heart regular rhythm no murmur. Abdomen soft. Epigastric tenderness. No rebound or guarding. No rigidity. Both the right upper quadrant and right lower quadrants are unremarkable. She has had a prior cholecystectomy. There is no hernias or masses. There is no signs of obstruction. She has normal bowel sounds. She is moving all 4 extremities. Nontender. No edema. Back exam nontender. Neurologically she is awake and alert without focal motor deficits. Test Results: Lab work done yesterday. I do not feel that needs to be repeated today. Emergency Department Course and Treatment: She will be given IV Zofran. Protonix and a GI cocktail. Repeat exam at 1336 patient is doing well. Abdomen is completely benign and nontender. She is not having any more pain currently. Her primary care physician is already put her on a medication for gastric reflux. She also has nausea medication at home. Treatment Plan: Continue current medications. If not improving follow-up with her primary care physician for possible upper endoscopy if needed. Disposition: Discharge Impression: Acute epigastric abdominal pain secondary to suspected gastritis This note was generated with [employer] dictation software. It may contain incorrect words, spelling, and punctuation that were not noted in review of the chart prior to signing ED Disposition - Plan for ED Patient: Disposition: Home or Assisted Living Chief Complaint: Abd Pain Instructions: ED Gastritis, ED Epigastric Pain UKO Prescriptions: Ondansetron HCl [Zofran] 4 mg PO Q4H PRN PRN #10 tab PRN Reason: Nausea Referrals: Sergio Grover DO [Primary Care Provider] - 1 Week if not improving Additional Instructions: Follow-up with primary care physician for further evaluation. Zofran for nausea.
--- NOTE | 2017-12-26 11:33 | ED.DEP ---
ED Disposition - Plan for ED Patient: Disposition: Home or Assisted Living Chief Complaint: Abd Pain Instructions: ED Gastritis, ED Epigastric Pain UKO Prescriptions: Ondansetron HCl [Zofran] 4 mg PO Q4H PRN PRN #10 tab PRN Reason: Nausea Referrals: Sergio Grover DO [Primary Care Provider] - 1 Week if not improving Additional Instructions: Follow-up with primary care physician for further evaluation. Zofran for nausea.
[2017-12-26] MEDS: Ondansetron 4 MG/2 ML Vial IV (12:05)
[2017-12-26] MEDS: Mag Hydrox/Al Hydrox/Simeth 30 ML UDC PO (12:05)
[2017-12-26 13:10] VITALS: BP 125/96; PULSE 64; RESP 18; O2SAT 99
[2017-12-26 13:40] VITALS: BP 112/76; PULSE 76; RESP 18; O2SAT 99
== END 2017-12-26 13:41 | disposition home or self-care (01) ==
PROVIDERS: Emergency Provider Emergency Medicine; Family Provider Student in an Organized Health Care Education/Training Program; PCP Student in an Organized Health Care Education/Training Program
DX: R10.13 Epigastric pain (principal); Z72.0 Tobacco use; Z90.49 Acquired absence of other specified parts of digestive tract
CPT/HCPCS: 99285; A4216; J2405; J3490

== ENCOUNTER 2017-12-31 09:08 | Emergency (ER) | payer MEDICAID, SELFPAY ==
[2017-12-31 09:08] VITALS: BP 100/65; PULSE 90; RESP 18; TEMP 36.6; O2SAT 98; BMI 22.6
--- NOTE | 2017-12-31 09:45 | ED.VISSUMM ---
- ER Visit Summary Date of Service: 12/31/17 Chief Complaint: Bilateral armpit abscesses History of Present Illness: The patient is a 32 F history of reflux. Patient states she has had abscesses in both armpits since Friday. She has a history of prior MRSA. She was seen at the [facility] urgent care and started on Bactrim 1 twice daily the other day for 10 days. She is only been on the medication about 2 days. She denies other complaints. Physical Examination: Well-appearing young female. Vital signs are stable. She is afebrile. She does not look septic or toxic. She is in no distress. H EENT exam unremarkable. Neck nontender. Lungs clear to auscultation. Heart regular rhythm no murmur. Abdomen soft. Nondistended normal bowel sounds no peritoneal signs. She is currently moving all 4 extremities. No focal motor deficits. Neurologically she is awake and alert. Both armpits have small abscesses. They are not fluctuant. They are tender. There is no cellulitis. There is no accumulation of pus. Draining these would not be of any benefit at this time it is firm, indurated, infected tissue. No loculation. No fluctuance. Test Results: None Emergency Department Course and Treatment: Patient is currently on Bactrim. I will add Keflex 500 4 times daily for 10 days also. Continue warm compresses. I explained to the patient that if these became much larger and you could feel fluid around she should return to have them drained. At this time drainage would be of no benefit. She understands this. Treatment Plan: Keflex and Bactrim for 10 days. Motrin for pain. Return if worse. Disposition: Discharge Impression: Bilateral small axillary abscesses This note was generated with [employer] dictation software. It may contain incorrect words, spelling, and punctuation that were not noted in review of the chart prior to signing ED Disposition - Plan for ED Patient: Chief Complaint: Abscess Referrals: Sergio Grover DO [Primary Care Provider] -
--- NOTE | 2017-12-31 09:48 | ED.DEP ---
ED Disposition - Plan for ED Patient: Disposition: Home or Assisted Living Chief Complaint: Abscess Instructions: ED Staph Infec Abx Tx Only Prescriptions: Cephalexin [Keflex] 500 mg PO Q6 #40 cap Referrals: Sergio Grover DO [Primary Care Provider] - 1 Week if not improving Additional Instructions: Warm compresses, shower and warm bath to help these abscesses drained. Take both the Bactrim 1 pill twice a day and the Keflex 1 pill 4 times a day till gone. Hopefully this will resolve both abscesses. If the abscesses get much larger and you can feel fluid in them then you need to have them drained. At this time that would not be beneficial.
[2017-12-31 09:55] VITALS: BP 108/75; PULSE 62; RESP 15; O2SAT 98
== END 2017-12-31 09:56 | disposition home or self-care (01) ==
PROVIDERS: Emergency Provider Emergency Medicine; Family Provider Student in an Organized Health Care Education/Training Program; PCP Student in an Organized Health Care Education/Training Program
DX: L02.412 Cutaneous abscess of left axilla (principal); L02.411 Cutaneous abscess of right axilla; Z79.899 Other long term (current) drug therapy; K21.9 Gastro-esophageal reflux disease without esophagitis; Z86.14 Personal history of Methicillin resistant Staphylococcus aureus infection
CPT/HCPCS: 99282

== ENCOUNTER 2018-09-27 02:20 | Outpatient (CLI) | payer MEDICAID, SELFPAY ==
[2018-09-27 05:07] VITALS: BMI 28.8
[2018-09-27 05:27] LABS: Bacteria 0 SEEN /hpf (None Seen); Mucous, Urine 0 SEEN /hpf (<or=2+); White Blood Cells 0 SEEN /hpf (0-5)
[2018-09-27 05:29] LABS: Color, Urine Yellow (Yellow); Glucose, Dipstick Normal (Normal); Ketone-Dipstick 50 mg/dl (Negative); Leukocyte Esterase-Dipstick Negative /ul (Negative); Nitrite-Dipstick Negative (Negative); Occult Blood-Urine 25 /ul (Negative); Protein-Dipstick 30 mg/dl (Negative); Urine Bilirubin Dipstick Negative (Negative); Urine Clarity Clear (Clear); Urine Urobilinogen Normal (Normal); Urine pH 6.5 (5.0 - 8.0)
[2018-09-27 05:34] LABS: Red Blood Cells-Urine 0-5 SEEN /hpf (0-5); Squamous Epithelial Cells - UA 0-5 SEEN /hpf (5-10)
--- NOTE | 2018-09-27 10:20 | OB.TRI.NOTE ---
History of Present Illness Date of Service: 09/27/18 Was patient seen by the physician?: Yes Reason For Visit: RULE OUT LABOR Date of Service: 09/27/18 Final LYNNE: 10/24/18 Final LYNNE Source: US <20 weeks Gestational age: 36 Weeks and 1 Days History of Present Illness: Fadia is a 33 y/o @ 36+ weeks. Patient presents for PTL labor evaluation. Patient was at a [facility] [employer] display last night and she reports that she started to have regular painful contractions on the way home in the car. Patient reports +FM. Patient denies dysuria, vaginal discharge or vaginal bleeding. She tried laying down and immersion in warm water at home as well as increasing her hydration. Patient reports that did not help her symptoms. Allergies Fish Containing Products Allergy (Verified 12/31/17 09:12) Swelling Laboratory Studies: Laboratory Tests 09/27/18 Range/Units 05:15 Urine Color Yellow (Yellow) Urine Clarity Clear (Clear) Urine pH 6.5 (5.0 - 8.0) Ur Specific [place] 1.010 (1.002-1.030) Urine Protein 30 H (Negative) mg/dl Urine Glucose (UA) Normal (Normal) mg/dl Urine Ketones 50 H (Negative) mg/dl Urine Occult Blood 25 H (Negative) /ul Urine Nitrite Negative (Negative) Urine Bilirubin Negative (Negative) mg/dL Urine Urobilinogen Normal (Normal) mg/dl Ur Leukocyte Esterase Negative (Negative) /ul Urine RBC 0-5 SEEN (0-5) /hpf Urine WBC 0 SEEN (0-5) /hpf Ur Squamous Epith Cells 0-5 SEEN (5-10) /hpf Urine Bacteria 0 SEEN (None Seen) /hpf Urine Mucus 0 SEEN (<or=2+) /hpf Review of Systems Constitutional: Denies: Chills, Fever, Weight Change HEENT: Denies: Head Aches, Sinus Congestion, Sinus Drainage Cardiovascular: Denies: Chest Pain, Palpitations Respiratory: Denies: Cough, Shortness of breath at rest, Sputum production Gastrointestinal: Denies: Abdominal Pain, Nausea, Vomiting Genitourinary: Denies: Dysuria Musculoskeletal: Denies: Joint Pain, Joint Tenderness Skin: Denies: Rash, Wounds Neurological: Denies: Numbness, Tingling, Focal weakness Psychiatric: Denies: Anxiety, Depression, Homicidal Ideations, Suicidal Ideations Hematologic/ Lymphatic: Denies: Easy Bruising, Easy Bleeding Unable to obtain accurate/complete ROS d/t: Per nursing staff - see nursing note Physical Exam Vitals: VSS, Afebrile - see nursing note. PE per nursing note. NST - FHR Rate Baby A Baseline: 130 Variability:: Moderate Accelerations:: 15 x 15 Decelerations:: None NST Reactive:: Yes, Appropriate for gestational age FHR Category:: Category I Uterine Activity:: Ctx q 4-5 minutes apart mildly palpable, uterine irritability also noted Impression/Plan 33 y/o @ 36+ 1 weeks, Category I FHT, Dehydration, Labor - Ruled out P: 1) Discharge patient to home with PTL and [facility] precautions 2) Increase PO water hydration to 80-100fl.oz. daily 3) RTC to [facility] as scheduled for weekly visits. Christina BRIZUELA
== END 2018-09-27 05:45 | disposition home or self-care (01) ==
LOC: WPOUT 02:50 → WP 02:53
PROVIDERS: Family Provider Student in an Organized Health Care Education/Training Program; PCP Student in an Organized Health Care Education/Training Program; Referring Provider Advanced Practice Midwife; Visit Provider Advanced Practice Midwife
DX: O60.03 Preterm labor without delivery, third trimester (principal); E86.0 Dehydration; Z3A.36 36 weeks gestation of pregnancy
CPT/HCPCS: 59025; 59050; 81001; 87086; 87088; 99218; G0378

== ENCOUNTER 2018-10-26 11:30 | Inpatient (IN) | payer MEDICAID, SELFPAY ==
[2018-10-26 12:30] VITALS: BMI 28.7
[2018-10-26] MEDS: Lactated Ringers 1,000 ML 50 ML IV (13:10)
[2018-10-26] MEDS: Oxytocin 30 units/NS 500 ml 30 UNITS/500 ML IV.SOLN IV (13:40)
[2018-10-26 14:13] LABS: Absolute Lymphocyte Count 2.13 X10^3/uL (0.83-4.51); Absolute Neutrophil Count 9.5 X10^3/uL (2.0-7.7); Basophil# 0.02 X10^3/uL; Basophil% 0.2 % (0-1); Eosinophil# 0.12 X10^3/uL; Eosinophils% 0.9 % (0-5); Hematocrit 36.7 % (37-47); Hemoglobin 12.3 g/dL (12.0-15.0); Lymphocyte # 2.13 X10^3/ul (4.0); Lymphocyte % 16.9 % (19-41); Mean Corp Hgb Conc 33.5 g/dL (32-36); Mean Corpuscular Hgb 29.4 pg (27.0-32.0); Mean Corpuscular Volume 87.6 fL (81-99); Mean Platelet Vol. 9.1 fl (6.2-12.0); Monocyte# 0.76 X10^3/uL; NRBC Flagged by Analyzer 0 % (0-5); Neutrophil # 9.48 X10^3/uL (2.7-7.7); Platelet Count 203 K/mm3 (150-450); RBC Distribution Width CV 12.6 % (11.6-14.6); Red Blood Count 4.19 M/mm3 (4.2-5.4); White Blood Count 12.6 K/mm3 (4.4-11.0)
[2018-10-26] MEDS: Acetaminophen 325 MG Tablet PO (14:18)
[2018-10-26 14:52] LABS: Amphetamine Urine VISTA NEGATIVE (<1000 ng/mL); Barbiturate Urine VISTA NEGATIVE (< 200 ng/mL); Benzodiazepine Urine VISTA NEGATIVE (< 200 ng/mL); Cocaine Urine VISTA NEGATIVE (< 300 ng/mL); Ecstacy Urine VISTA NEGATIVE (< 500 ng/mL); Methadone Urine VISTA NEGATIVE (< 300 ng/mL); PCP Urine VISTA NEGATIVE (< 25 ng/mL); THC Urine VISTA POSITIVE (< 50 ng/mL); Vista UDS pH Range 6
[2018-10-26] MEDS: Nalbuphine 10 MG/ML Ampul IV (15:47)
--- NOTE | 2018-10-26 16:40 | NURSING ---
attempt for iv: karo x2 hermes x2 denia x3 kalani x3
[2018-10-26] MEDS: 0.9% Saline Lock 10 ML Syringe IV (17:20)
[2018-10-26] MEDS: Oxytocin 30 units/NS 500 ml 30 UNITS/500 ML IV.SOLN 334 UNITS IV (17:57)
[2018-10-26] MEDS: Methylergonovine 0.2 MG/ML Ampul IM (18:02)
--- NOTE | 2018-10-26 18:10 | PCM.OPRPT ---
Vaginal Delivery Maternal Presentation: Elective Induction Method of Induction: Pitocin, Amniotomy Amniotic Membrane Rupture Type: Artificial Amniotic Fluid Description: Clear Final LYNNE: 10/24/18 Final LYNNE Source: US <20 weeks Gestational age: 40 Weeks and 2 Days Date of Procedure: 10/26/18 Pre-Operative Diagnosis: labor Post-Operative Diagnosis: same Surgery/ Procedure Performed: Spontaneous Vaginal Delivery Type of Anesthesia: None Description of Procedure: A vigorous female was delivered GISELLE over intact perineum. A loose nuchal cord ?1 was easily reduced. The remainder the infant was delivered with maternal pushing and gentle traction only in less than 15 seconds. The Pitocin infusion was initiated for active management of the third stage. The cord was clamped and cut after 1 minute. The was attended to by the waiting nursing staff. The placenta was delivered spontaneously and intact. The cervix and vagina were intact. With fundal massage, the patient had small gush of blood. The fundus was then firm. After couple minutes there is another small gush of blood. With massage the fundus firmed up nicely again. 1 dose of Methergine was given for mild atony without hemorrhage. After that the uterus remained firm and bleeding was average. Sponge and needle counts were correct. A vaginal sweep was completed by me. Presentation: GISELLE Placental Delivery Description: Spontaneous Placenta Disposition: [facility] Cord Vessel Description: 3 Vessels Nuchal Cord Compression: Without compression Cord Entanglement: Around neck x 1, loose Drain: - - none Estimated Blood Loss: 300 A gender: Female (1 minute): 9 (5 minute): 9 Episiotomy Description: None Laceration: None Medications given after delivery: IV Pitocin Complications: None
--- NOTE | 2018-10-26 18:13 | PCM.HP.OB ---
History Date of Admission: 05/15/16 Final LYNNE: 10/24/18 Final LYNNE Source: US <20 weeks Gestational age: 40 Weeks and 2 Days History of this : This is a 33 year-old @ 40 2/7 weeks presents for elective induction of labor. She denied any vaginal bleeding or leaking of fluid. She is had some irregular contractions. was complicated to date by anemia and marijuana use. Past medical history significant for some thyroid abnormalities, history of depression, history of marijuana use, history of anemia, irritable bowel syndrome, remote history of gonorrhea and chlamydia Obstetrical history: First was a 22-week stillborn, that she had a cerclage. Her was a 38-week 5 pound 7 ounce delivery without complications Third was a first trimester loss Fourth was a 39-week delivery of a 7 pound 7 ounce , labor at 31 weeks, mild hemorrhage at delivery. was full-term delivery of a 7 pound 7 ounce infant Past surgical history cerclage with her first , cholecystectomy, EGD, colonoscopy, excision of a ganglion cyst off her wrist, and a laparoscopy Allergies Fish Containing Products Allergy (Verified 12/31/17 09:12) Swelling Home Medications: Home Medications Vits [Prenatabs FA] 1 tablet PO DAILY 09/27/18 Smoking Status: Former smoker Alcohol: None Substance Use Type: Marijuana Number of Fetus(es): 1 Heart Tracing: normal baseline, moderate variability on admission, category 1 TOCO Analysis: irreg ctxs History Past Pregnancies: Past Pregnancies Delivery Date Name GA/Weeks Outcome Route Weight Gender Labor Length Anesthesia Delivery Location Provider FOB Expected Delivery Method: Spontaneous Vaginal Review of Systems Constitutional: Denies: Chills, Fever Cardiovascular: Denies: Chest Pain Respiratory: Denies: Shortness of Breath Gastrointestinal: Denies: Abdominal Pain Hematologic/ Lymphatic: Reports: Anemia. 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 Risk benefits and alternatives to induction of labor been discussed with the patient, questions were answered to her satisfaction, consent was signed and she desired to proceed. Estimated weight is clinically less than 4000 g and pelvis clinically adequate to expect vaginal delivery. May have epidural, Nubain or nitrous oxide as needed for pain control. urine tox screen was done due to history of cannabis use during the
[2018-10-26] MEDS: miSOPROStol 200 MCG Tablet 800 MCG RECTAL (18:25)
[2018-10-26] MEDS: Ketorolac 30 MG/ML Syringe IV (18:56)
[2018-10-26] MEDS: Cefazolin 1 GM/50 ML BAG IV (19:25)
[2018-10-26] MEDS: Acetaminophen 500 MG Tablet 1000 MG PO (19:53)
[2018-10-26] MEDS: Ondansetron 4 MG/2 ML Vial IV (19:54)
--- NOTE | 2018-10-26 21:30 | NURSING ---
Taking over pt care at this time.
--- NOTE | 2018-10-26 23:00 | NURSING ---
Discussed use of THC use and . Discouraged future use of THC if planning to breastfeed. Pt planning to stop use of THC, verbalized understanding.
[2018-10-26 23:40] VITALS: BP 114/57; PULSE 67; RESP 18; TEMP 36.6; O2SAT 100
[2018-10-27] MEDS: Naproxen 250 MG Tablet 500 MG PO ×3 (01:11→17:08)
[2018-10-27 04:50] VITALS: BP 117/59; PULSE 86; RESP 18; TEMP 36.6; O2SAT 100
[2018-10-27] MEDS: Acetaminophen 500 MG Tablet 1000 MG PO (04:56)
[2018-10-27 06:27] LABS: Hematocrit 26.7 % (37-47); Hemoglobin 8.9 g/dL (12.0-15.0); Mean Corp Hgb Conc 33.3 g/dL (32-36); Mean Corpuscular Hgb 29.2 pg (27.0-32.0); Mean Corpuscular Volume 87.5 fL (81-99); Mean Platelet Vol. 9.5 fl (6.2-12.0); Platelet Count 190 K/mm3 (150-450); RBC Distribution Width CV 12.9 % (11.6-14.6); RBC Distribution Width SD 40.8 fl (35.1-43.9); Red Blood Count 3.05 M/mm3 (4.2-5.4); White Blood Count 18.4 K/mm3 (4.4-11.0)
--- NOTE | 2018-10-27 07:00 | NURSING ---
Pt informed this RN clots passed this AM when up to bathroom. 2-3 grape sized and 1 1/2 dollar size noted on pad in bathroom. Bleeding controlled and fundus firm uu.
--- NOTE | 2018-10-27 07:37 | PN.OBGYN_ITS ---
Subjective: Pain well controlled average lochia. Some small 1 to 2 cm size clots this morning. Some cramping. - Physical Exam General: Alert, Cooperative, No apparent distress Abdomen: Soft, Non-Distended, Tender - Appropriately, - - Fundus very firm, at umbilicus, and no blood expressed with vigorous massage. Vital Signs Temp Pulse Resp BP Pulse Ox 97.9 F 86 18 117/59 L 100 10/27/18 04:50 10/27/18 04:50 10/27/18 04:50 10/27/18 04:50 10/27/18 04:50 Oxygen Delivery Method Room Air Weight: 73.5 kg Body Mass Index (BMI) 28.7 Intake and Output for Last 24 Hours 10/25/18 10/26/18 10/27/18 23:59 23:59 23:59 Output Total 500 / 500 Balance -500 / -500 Laboratory Tests Past 24 Hrs 10/26/18 10/26/18 10/26/18 14:00 14:00 14:00 WBC 12.6 H RBC 4.19 L Hgb 12.3 Hct 36.7 L MCV 87.6 MCH 29.4 MCHC 33.5 RDW Std Deviation 40.0 RDW Coeff of Fabian 12.6 Plt Count 203 MPV 9.1 Immature Gran % (Auto) 1.000 H Neut % (Auto) 75.0 H Lymph % (Auto) 16.9 L [place] % (Auto) 6.0 Eos % (Auto) 0.9 Baso % (Auto) 0.2 Absolute Neuts (auto) 9.5 H Absolute Lymphs (auto) 2.13 Nucleated RBC % 0 Urine Opiates Screen NEGATIVE Urine Methadone Screen NEGATIVE Ur Barbiturates Screen NEGATIVE Ur Phencyclidine Scrn NEGATIVE Ur Amphetamines Screen NEGATIVE U Methamphetamin-MDMA NEGATIVE U Benzodiazepines Scrn NEGATIVE Urine Cocaine Screen NEGATIVE U Cannabinoids Screen POSITIVE H Ur Drug Screen Comment Blood Type A POSITIVE Antibody Screen NEGATIVE 10/27/18 06:00 WBC 18.4 H RBC 3.05 L Hgb 8.9 L Hct 26.7 L MCV 87.5 MCH 29.2 MCHC 33.3 RDW Std Deviation 40.8 RDW Coeff of Fabian 12.9 Plt Count 190 MPV 9.5 Immature Gran % (Auto) Neut % (Auto) Lymph % (Auto) [place] % (Auto) Eos % (Auto) Baso % (Auto) Absolute Neuts (auto) Absolute Lymphs (auto) Nucleated RBC % Urine Opiates Screen Urine Methadone Screen Ur Barbiturates Screen Ur Phencyclidine Scrn Ur Amphetamines Screen U Methamphetamin-MDMA U Benzodiazepines Scrn Urine Cocaine Screen U Cannabinoids Screen Ur Drug Screen Comment Blood Type Antibody Screen Medical Necessity - Tobacco Use Smoking Status: Former smoker Assessment/Plan All Active Problems Hypokalemia (Acute) Intractable nausea and vomiting (Acute) Gastroenteritis due to norovirus (Acute) day #1 status post vaginal delivery. According to calculated blood loss based on hct drop, patient height and wt, EFL would be approx 1400 cc. Delivery complicated by atony with hemorrhage. Stable now. Repeat CBC at noon. If she desires d/c home today and ok w/ peds, ok to d/c
--- NOTE | 2018-10-27 07:44 | DCINST_ITS ---
Discharge Diet: No Restrictions Discharge Activity: Return to Normal Activity, May Not Drive - while taking narcotic pain medications., May Shower May resume sexual activity in: 6-8 weeks Call your doctor if your incision/area has: Continuous Slow Oozing, Sudden Increased Bleeding, Increased Pain/ Swelling, Increased Redness, Foul Smelling Discharge Call your doctor if you observe: Fever of 101 or Higher, Inability to urinate, Inability to have a bowel movement, Using more than one pad per hour Allergies/Adverse Reactions: Allergies Fish Containing Products Allergy (Verified 12/31/17 09:12) Swelling Medications to take at Discharge Vits [Prenatabs FA] 1 tablet PO DAILY 09/27/18 Ferrous Sulfate [Ferosul] 325 mg PO DAILY 30 Days #30 tab 10/27/18 Ibuprofen [Motrin] 800 mg PO TID PRN PRN #60 tab 10/27/18 The following prescriptions were given: Ferrous Sulfate [Ferosul] 325 mg PO DAILY 30 Days #30 tab Transmission Status: Pending to [facility] Ibuprofen [Motrin] 800 mg PO TID PRN PRN #60 tab PRN Reason: Pain Transmission Status: Pending to [facility] Primary Care Physician: Sergio Grover DO [Primary Care Provider] - Test Results: Test results from this visit will be discussed in further detail at your follow- up appointment, if applicable. Please Follow Up With: Becky Miller MD - [phone] When: 1-2 and 6 weeks or as needed
[2018-10-27 08:39] VITALS: BP 106/54; PULSE 62; RESP 18; TEMP 37.1
[2018-10-27 12:24] VITALS: BP 119/55; PULSE 80; RESP 18; TEMP 36.9
--- NOTE | 2018-10-27 12:25 | NURSING ---
lab draw attempted in r ac. blood drained very slowly and then stopped. Lab called to draw sample
[2018-10-27 12:47] LABS: Hematocrit 29.5 % (37-47); Hemoglobin 9.9 g/dL (12.0-15.0); Mean Corp Hgb Conc 33.6 g/dL (32-36); Mean Corpuscular Hgb 29.6 pg (27.0-32.0); Mean Corpuscular Volume 88.1 fL (81-99); Mean Platelet Vol. 9.2 fl (6.2-12.0); Platelet Count 200 K/mm3 (150-450); RBC Distribution Width CV 12.4 % (11.6-14.6); RBC Distribution Width SD 39.8 fl (35.1-43.9); Red Blood Count 3.35 M/mm3 (4.2-5.4); White Blood Count 18.8 K/mm3 (4.4-11.0)
--- NOTE | 2018-10-27 15:00 | CASEMGMT ---
Social Work Assessment Labor and Delivery Unit Date of Referral: 10/26/2018 Time of Referral: 2215 Referred By: Dr. Ene Miller Date of Intervention: 10/27/2018 Time of Intervention: 1500 Reason for Referral: maternal use of marijuana; history of depression History obtained from: medical records and mother of baby (DARRELL) Fadia Pineda Household composition: MOB, father of baby (FOB), and 3 older children live in a home. MOB reports home situation is safe and adequate. Patient's parent/guardian status: MOB is 33 years old, single female involved with 34 years old single male, Barb Young. DARRELL and FOB have been together for 14 years and are engaged, now have 4 children together. Minor children include: Regina Young (born 03.06.2008), Katie Young (born 10-15-2011), Juan Alberto Young (born 02-07-2015) and baby girl Hesham Young (born 10[birth year]2018). MOB denies any form of abuse, control, or intimidation in this relationship. Medical History: DARRELL is G6, P4 to 5 having 4 living children and 1 stillbirth at 22 weeks. MOB reports first occurred when DARRELL was 16 years old and resulted in 22 week loss of a baby girl. DARRELL has had one first trimester loss in 2009. MOB reports history of cyclical vomiting syndrome. MOB with care this starting at 8 weeks gestation. Baby Hesham was born weighing 6 pounds 15 ounces. Apgars 9 and 9 at 1 and 5 minutes of life. Educational Status: MOB completed through the 11th grade. MOB reports able to read, write, and to understand what is read. 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 MOB reports employment has been difficult to maintain due to cyclical vomiting syndrome, getting sick for weeks at a time and employers being unwilling to keep MOB on. MOB reports was just approved for SSI disability and received first check this month. Disability approved on basis of depression and cyclical vomiting syndrome. 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 Supplies: MOB reports to have needed supplies including a car seat, safe sleep space of bassinet and pack-n-play, clothing, diapers, wipes. Plans to get a breast pump. Childcare/Caregiver(s): MOB will be primary caregiver. Supplemental help from FOB. Transportation: No issues reported or indicated. Programs/Agencies Involved: MOB has JFS for medical and food. Connected with [employer]. Reports history of counseling and treatment at [facility] but denies current involvement. Children Services/Legal Issues: No reports or indication of legal issues. MOB denies any history of involvement with children services. Behavioral Health Issues: Mental Health History: MOB reports history of depression and anxiety. Chart indicates a diagnosis of PTSD as well. MOB reports has been in counseling as a teen and as an adult. MOB reports has been on antidepressants before but has not liked the way the medications made MOB feel. MOB denies that depression has ever led to thoughts, plans, intent, or attempts at suicide. No thoughts of harm to other reported either. MOB states to have to many little blessings to live for (referencing her children). MOB does admit to some depression during as MOB reduced marijuana usage, which has previously been a tool MOB used to help manage emotions. Substance Use History: MOB endorses history of marijuana use and reports this substance has helped MOB manage depression and anxiety. MOB reports did try to reduce use in and last use was about a month ago when MOB reports became more aware of potential effects to the baby. MOB reports intent to abstain from marijuana use in the foreseeable future, and especially while . MOB denies other illicit drug use such as heroin, cocaine, meth, or prescription narcotics. No reports of alcohol use. Family History: Not discussed. Drug Screens: MOB had positive drug screens for marijuana on 03-16-2018, 09-10-2018, and at time of delivery on 10-26-2018. Baby's urine drug screen negative and meconium is pending. Family/Social Stressors: Stressors identified are improving. MOB with history of difficulty in keeping and maintaining employment and then with 8-9 year struggle to be approved for disability creating financial stress at times. This stressor is resolving due to MOB being approved for SSI, which will be consistent and stable income for the home. MOB with reported reduction in marijuana use, which MOB reported to have used to help manage emotional health. MOB has been working on using other methods to manage emotional health needs since, such as talking more with FOB, walking outside, playing with children and finding ways to distract self from worry. Support Systems: MOB reports FOB is a strong and positive support. MOB reports to have family and friends in the area who are also supportive. MOB reports FOB will be off from work and able to help MOB for the next couple of weeks when school starts back up. Depression/Shaken Baby/Safe Sleeping : MOB denies history of depression. Educated MOB to risk for depression and anxiety, risk factors present for MOB, and importance of seeking out help and support. MOB reports has been thinking of going back to counseling again. MOB reports awareness of safe sleeping and shaken baby prevention. ASSESSMENT: Met with MOB in room. FOB and older children also present upon social work job titles presenting to room. Visitors left at social work job titles request and without issues. MOB holding baby, attentive to baby, appearing to bey with baby as evidenced by touching the baby, enfolding and smiling at baby during social work visit. MOB pleasant, cooperative, willing to engage with social work job titles. MOB nondefensive in communication. Bright affect, congruent mood. MOB reports to have adequate supplies and support in place. MOB reports to feel happy to have baby damari Dahl and to feel a bey with this child. MOB reports openness to returning back to counseling after social work job titles talked bout mood and anxiety risk, as well as potential benefit to continue working on coping in support in lieu of MOB recently ceasing marijuana usage (which MOB had reported to use to help manage emotions in the past). Some options discussed and MOB reports has been thinking of going to [facility]. MOB reports will make own appointment and feels able to do so on own. Safe Plan of Care for infant related to substance use: MOB plans to cease use in the foreseeable future and reports as has ceased use during is hopeful to be able to continue this. Should marijuana use ever become an option again MOB would make sure the substance is put away from the children, would not use in front of the kids or take care of the kids immediately after smoking. MOB reports the kids are not aware of MOB's history of marijuana use. Children Services: Educated MOB to need for children service referral due to substance exposed , and potential for some follow up. MOB accepted this information without issues, asked some questions and admitted this makes MOB a bit nervous to have children service involved, but also expressed appreciation to being able to ask questions bout this topic. PLAN: MOB and baby to home with support from FOB. MOB accepted [facility] resource lists and packet of information and resources for mood and anxiety disorders. Children service referral pending. Meconium drug screen results for baby pending. No other services requested or indicated. -GABBY Ramirez, CASHIER WRAPPER
[2018-10-27 16:45] VITALS: BP 111/67; PULSE 81; RESP 16; TEMP 36.8
== END 2018-10-27 19:55 | disposition home or self-care (01) | DRG 560 ==
PROVIDERS: Admitting Provider Obstetrics & Gynecology; Family Provider Student in an Organized Health Care Education/Training Program; PCP Student in an Organized Health Care Education/Training Program; Visit Provider Obstetrics & Gynecology
DX: O75.9 Complication of labor and delivery, unspecified (principal); O72.1 Other immediate postpartum hemorrhage; O99.02 Anemia complicating childbirth; D64.9 Anemia, unspecified; O99.324 Drug use complicating childbirth; F12.90 Cannabis use, unspecified, uncomplicated; O69.1XX0 Labor and delivery complicated by cord around neck, with compression, not applicable or unspecified; Z87.891 Personal history of nicotine dependence; Z3A.40 40 weeks gestation of pregnancy; Z37.0 Single live birth
CPT/HCPCS: 36415; 59025; 59050; 80307; 85025; 85027; 86850; 86900; 99218; J7120; A4216; G0378; J2405

== ENCOUNTER → 2019-09-27 | Outpatient (CLI) | payer MEDICAID, SELFPAY ==
--- NOTE | 2019-09-27 07:40 | CT_ITS ---
STUDY: CT FACIAL BONES WITHOUT CONTRAST REASON FOR EXAM: Female, 34 years old. PT STATED SINUSITIS, WORSE ON LEFT RADIATION DOSAGE (If Supplied By Facility): CTDIvol = ( 33.06 ) mGy, DLP = ( 871.04 ) mGycm TECHNIQUE: The patient was scanned in a multi detector CT scanner. Sagittal and coronal images were reconstructed. Individualized dose optimization techniques were used for this CT. COMPARISON: None. FINDINGS: Normal soft tissue structures. Normal orbital núñez and orbital contents. Normal nasal bones and anterior nasal spine. Normal facial bones. There is no demonstrated fracture. There is hypertrophy of the right inferior turbinate. Normal visualized paranasal sinuses. CT/Sinus/Facial Bone IMPRESSION: Normal unenhanced CT of the facial bones. Electronically Signed: Preet Lewis, at 10:08 EDT , Service support ,
== END | disposition home or self-care (01) ==
LOC: CT 07:39
PROVIDERS: PCP Student in an Organized Health Care Education/Training Program; Referring Provider Otolaryngology; Visit Provider Otolaryngology
DX: J32.9 Chronic sinusitis, unspecified (principal)
CPT/HCPCS: 70486

== ENCOUNTER 2019-10-29 17:46 | Emergency (ER) | payer MEDICAID, SELFPAY ==
[2019-10-29 17:46] VITALS: BP 128/85; PULSE 80; RESP 16; TEMP 36.2; O2SAT 99; BMI 25.8
--- NOTE | 2019-10-29 18:12 | ED.VIS.GEN ---
History of Present Illness Chief Complaint: Other, Pain/Inj Detail of Chief Complaint: Pain left popliteal fossa Onset: Today Context: Sudden Onset Timing: Continuous Quality: Pain Location: Left popliteal fossa Current Severity: Mild Maximum Severity: Moderate Worsened by: Extension and palpation Relieved by: Nothing Associated Symptoms: Patient also complained of pain over the left greater trochanteric region. Narrative: Patient is a 34-year-old woman who presents with atraumatic left popliteal fossa pain. This started abruptly. She is on hormonal therapy. She also reports pain in the area of the left greater trochanteric bursa. She denies history of VTE. She denies history of knee trauma. She denies paresthesia, anesthesia or motor weakness. She was sent from urgent care because of concern for DVT. Prior similar symptoms: No Recent Illness/Hospitalization: No - Past Medical History (1) Esophageal reflux Status: Chronic (2) Marijuana use Status: Chronic Past Medical History - Allergies and Home Meds Allergies/Adverse Reactions: Allergies Fish Containing Products Allergy (Verified 10/29/19 17:48) Swelling Primary Care Physician: Sergio Grover DO [Primary Care Provider] - Prior records reviewed: Yes Surgical History: cholecystectomy, - - cerclage,ex lap, egd Lives: Alone Smoking Status: Former smoker Alcohol: Rare Drugs: Marijuana - Family History Maternal Family History: Reports: Hypertension Paternal Family History: Reports: No pertinent history Review of Systems General: Denies: Chills, Fever, Malaise, Sweats, Weight loss Cardiovascular: Denies: Chest pain, Palpitations Respiratory: Denies: Dyspnea Musculoskeletal: Reports: Extremity Pain. Denies: Myalgias, Arthralgias, Neck pain, Back pain, Swelling Skin: Denies: Rash, Wounds Neurological: Denies: Weakness, Parasthesia, Numbness Hematologic: Denies: Easy bruising, Easy bleeding Physical Exam Vital Signs/Narrative: Vital Signs Temp Pulse Resp BP Pulse Ox 10/29/19 17:46 97.1 F L 80 16 128/85 H 99 Inital Vital Signs reviewed: Yes General: Well nourished, Well developed, No Acute Distress Head: Normocephalic, Atraumatic Eyes: Perrl, EOMI. Negative for: Pale conjunctiva, Scleral icterus Cardiovascular: Regular rate, Regular rhythm, No murmurs, Normal S1, Normal S2 Respiratory: No distress, CTA bilaterally, Chest nontender Extremities: No edema, Tenderness - Nurse in the popliteal fossa., - - No pain ovation over the left greater trochanteric region. There is no evidence of trauma. There is no neurovascular findings.. Negative for: Nontender, Edema, Calf Tenderness Skin: Normal color, No Trauma. Negative for: Cyanosis, Diaphoresis, Jaundice Neurological: Alert, Oriented x3, Cranial nerves II-XII grossly intact, Normal Strength, Normal Sensation Psychological: Normal affect, Normal Mood Diagnostic/Tx/Re-eval Laboratory Results 10/29/19 18:13 D-Dimer Quant (PE/DVT) 0.28 With a normal d-dimer ultrasound does not need to be obtained. This is muscular pain. Will treat with NSAIDs and she has no contraindication. - Medical Decision Making Is low probability for DVT. Since she is on hormonal therapy a d-dimer was obtained. If d-dimer is negative no further testing warranted. If d-dimer is positive will proceed with venous duplex study of the left lower extremity. Clinically patient does not have evidence first finding suggestive of Babcock's cyst. ED Disposition - Plan for ED Patient: Disposition: Home or Assisted Living Diagnosis: Pain of left lower leg Instructions: ED ACHING MUSCLES Prescriptions: Naproxen [Naprosyn] 500 mg PO BID #14 tab Transmission Status: Pending to [facility] Referrals: Sergio Grover DO [Primary Care Provider] - 3-5 Days if not improving
[2019-10-29 18:14] VITALS: BP 128/85; PULSE 80; RESP 16; TEMP 36.2; O2SAT 99
[2019-10-29 18:41] LABS: D-Dimer Quantitative (DVT/PE) 0.28 FEU/ug/m (0.27-0.49)
[2019-10-29 19:49] VITALS: BP 124/82; PULSE 72; RESP 16; TEMP 36.7; O2SAT 98
== END 2019-10-29 19:50 | disposition home or self-care (01) ==
PROVIDERS: Emergency Provider Emergency Medicine; PCP Student in an Organized Health Care Education/Training Program
DX: M79.662 Pain in left lower leg (principal); Z87.891 Personal history of nicotine dependence
CPT/HCPCS: 36415; 85379; 99282

== ENCOUNTER 2020-06-14 09:01 | Emergency (ER) | payer MEDICAID, SELFPAY ==
[2020-06-14 09:01] VITALS: BP 124/78; PULSE 127; RESP 18; TEMP 36.7; O2SAT 97; BMI 25.4
[2020-06-14] MEDS: 0.9% Normal Saline 1,000 ML 1000 ML IV (09:34)
[2020-06-14] MEDS: DiphenhydrAMINE 50 MG/ML Syringe IV (09:35)
[2020-06-14] MEDS: Metoclopramide 10 MG/2 ML Vial IV (09:36)
[2020-06-14] MEDS: Ketorolac 15 MG/ML Vial IV (09:36)
--- NOTE | 2020-06-14 09:50 | ED.VISSUMM ---
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 She reports a history of cyclic vomiting. States that her 3 children have had vomiting and diarrhea over the past 2 days. She developed vomiting and diarrhea yesterday. States she has vomited approximately 20 times. No blood in her emesis. She has had 4 episodes of diarrhea. No blood in her stools or black tarry stools. She complains of a diffuse aching, sharp abdominal pain that is 10 out of 10 at worst and 8 out of 10 currently. It is worsened by movement and relieved by remaining still. Patient complains of a headache that began last night over the left mu-ism. It is a dull pain that has gradually gotten worse. Is 5 out of 10 in severity. She does have a history of similar headaches. She also complains of photophobia. Physical Examination: Vitals: Stable. Afebrile. General: Well-nourished and well-developed. Head: Normocephalic atraumatic. Neck: Supple, no lymphadenopathy. No JVD. Nontender. Cardiovascular: Regular rate and rhythm. No murmurs. Respiratory: No respiratory distress. Clear to auscultation bilaterally. Abdominal: Soft, mild diffuse tenderness to palpation, nondistended, normal bowel sounds. No guarding, rebound, or peritoneal signs. Back: Nontender. Extremities: Nontender, no edema. Skin: Normal color, no rash. Neurologic: Alert and oriented ?3. Cranial nerves II through XII are intact. Normal strength and sensation. Psych: Normal affect. Test Results: CBC shows segmented neutrophils of 83 and lymphocytes of 12. Chem-7 shows a glucose of 132. LFTs show an AST of 14 and total protein of 8.5. Lipase is 42. test is negative. Emergency Department Course and Treatment: Patient had an IV placed. She was given a liter normal saline. She is given Toradol, Benadryl, and Reglan IV. She is resting more comfortably. Patient continues to complain of nausea and was given Zofran IV. Treatment Plan: Patient has had sick contacts in the household. She has vomiting and diarrhea. I suspect that this is viral in origin. She will be discharged with Zofran and Phenergan. Instructed to follow-up with her primary care physician in 1 to 2 days if not improving. Return to the emergency department for any worsening symptoms. Disposition: To home in improved and stable condition. Impression: 1. Vomiting/diarrhea. 2. Cephalgia. This note was generated with [employer] dictation software. It may contain incorrect words, spelling, and punctuation that were not noted in review of the chart prior to signing ED Disposition - Plan for ED Patient: Instructions: ED Vomiting and Diarrhea ... Prescriptions: proMETHazine suppository [Phenergan Suppository] 25 mg RECTAL Q6H PRN PRN #6 suppos. PRN Reason: Nausea proMETHazine tablet [Phenergan] 25 mg PO Q6H PRN PRN #10 tablet PRN Reason: Nausea Ondansetron [Zofran Odt] 4 mg PO Q8H PRN PRN #10 tablet PRN Reason: Nausea Referrals: Sergio Grover DO [Primary Care Provider] - 1-2 Days if not improving
[2020-06-14 09:55] LABS: Mean Corp Hgb Conc 33.3 g/dL (32-36); Mean Corpuscular Hgb 28.7 pg (27.0-32.0); Mean Corpuscular Volume 86.1 fL (81-99); Mean Platelet Vol. 8.9 fl (6.2-12.0); Platelet Count 270 K/mm3 (150-450); RBC Distribution Width CV 12.3 % (11.6-14.6); RBC Distribution Width SD 38.5 fl (35.1-43.9); Red Blood Count 4.53 M/mm3 (4.2-5.4); White Blood Count 10.5 K/mm3 (4.4-11.0)
[2020-06-14 09:56] LABS: Absolute Lymphocyte Count 1.22 X10^3/uL (0.83-4.51); Absolute Neutrophil Count 8.7 X10^3/uL (2.0-7.7); Basophil# 0.01 X10^3/uL; Basophil% 0.1 % (0-1); Lymphocyte # 1.22 X10^3/ul (4.0); Lymphocyte % 11.7 % (19-41); Monocyte% 4.8 % (0-10); NRBC Flagged by Analyzer 0 % (0-5); Neutrophil # 8.73 X10^3/uL (2.7-7.7); Neutrophil % 83.3 % (47-70); Total Cells Counted 0.01 (MANUAL DIFF)
[2020-06-14 09:58] LABS: Internal QC Validated? YES +Cl - CLEAR BKGD; Pregnancy, Serum, hCG Quali. NEGATIVE Negative
[2020-06-14 10:07] LABS: ALB/GLOB Ratio 1.1 RATIO (0.9-2.4); AST(SGOT) 14 U/L (15-37); Alanine Aminotransfer ALT/SGPT 28 U/L (13-56); Albumin, Serum 4.4 g/dL (3.2-5.0); Alkaline Phosphatase 74 U/L (45-117); Anion Gap 9 (5-15); BUN 11 mg/dL (7-18); Calcium,Total 9.3 mg/dL (8.5-10.1); Chloride 107 mmol/L (98-107); Creatinine, Serum 0.92 mg/dL (0.55-1.02); EST Glomerular Filtration Rate 75 mL/min (>60); Est Glom Filt Rate - Afr Amer 90 mL/min (>60); Estimated Creatinine Clearance 71.95 ml/min; Globulin 4.1 g/dL (2.2-4.2); Glucose 132 mg/dL (74-106); Lipase 42 U/L (73-393); Potassium 3.5 mmol/L (3.5-5.1); Protein, Total 8.5 g/dL (6.4-8.2); Sodium Level 139 mmol/L (136-145)
[2020-06-14] MEDS: Ondansetron 4 MG/2 ML Vial IV (10:41)
[2020-06-14 12:00] VITALS: BP 131/91; PULSE 68; RESP 14; O2SAT 100
== END 2020-06-14 12:01 | disposition home or self-care (01) ==
PROVIDERS: Emergency Provider Emergency Medicine; PCP Student in an Organized Health Care Education/Training Program
DX: R51.9 Headache, unspecified (principal); R11.10 Vomiting, unspecified; R19.7 Diarrhea, unspecified; K21.9 Gastro-esophageal reflux disease without esophagitis; F17.290 Nicotine dependence, other tobacco product, uncomplicated
CPT/HCPCS: 80053; 83690; 84703; 85025; 96361; 96374; 96375; 99285; J7030; A4216; J2405

== ENCOUNTER 2020-06-15 12:26 | Emergency (ER) | payer MEDICAID, SELFPAY ==
[2020-06-14 09:01] VITALS: BMI 25.4
[2020-06-15 12:27] VITALS: BP 152/91; PULSE 60; RESP 14; TEMP 36.9; O2SAT 99; BMI 24.9
--- NOTE | 2020-06-15 13:02 | ED.VIS.GI ---
History of Present Illness Chief Complaint: Nausea/Vomiting/Diarrhea Informant: Patient - Abdominal Pain/Flank Pain Onset: Days - 3 Context: Gradual Onset Timing: Continuous Quality: Aching Location: Diffuse - mostly epigastric Current Severity: Severe Maximum Severity: Severe Worsened by: Food Relieved by: Nothing - Nausea/Vomiting/Emesis GI Symptom: Nausea, Vomiting Quality: Nonbilious. Negative for: Blood streaks, Coffee ground, Hematemesis Severity: Severe - Diarrhea/Melena/Hematochezia GI Symptom: Diarrhea Stool Quality: Black. Negative for: KATERYNA per rectum Associated Symptoms: Negative for: Dysuria, Frequency, Hematuria Narrative: Patient states she was here yesterday for the same thing and today her symptoms are worse, she is having trouble keeping down any oral liquids, and she provides very little other information. From her chart yesterday, I was able to discover that she has a history of cyclic vomiting syndrome, her kids have recently had vomiting and diarrhea, and she was prescribed Phenergan suppositories yesterday. She states she has been taking the suppositories and Zofran and nothing is help and she continues to vomit. She denies any hematemesis. She denies any bright red blood per rectum or maroon stools. She states she is photophobic. - Past Medical History (1) Esophageal reflux Status: Chronic Past Medical History - Allergies and Home Meds Allergies/Adverse Reactions: Allergies Fish Containing Products Allergy (Verified 06/15/20 12:29) Swelling Primary Care Physician: Sergio Grover DO [Primary Care Provider] - 3-5 Days if not improving Surgical History: cholecystectomy, - - cerclage,ex lap, egd Lives: With Family Smoking Status: Current every day smoker - Family History Maternal Family History: Reports: Hypertension Paternal Family History: Reports: No pertinent history Review of Systems General: Reports: Chills, Malaise. Denies: Fever, Sweats Eyes: Reports: - - photophobia. Denies: Visual changes - bilaterally, Diplopia ENT: Denies: Rhinorrhea, Sore throat Cardiovascular: Denies: Chest pain, Palpitations Respiratory: Denies: Dyspnea, Cough, Dyspnea on exertion Gastrointestinal: Reports: Abdominal pain, Nausea, Vomiting, Diarrhea. Denies: Hematochezia Genitourinary: Denies: Dysuria, Hematuria, Frequency Musculoskeletal: Denies: Back pain, Swelling, Extremity Pain Skin: Denies: Rash, Wounds Neurological: Reports: Headache. Denies: Weakness, Numbness Physical Exam Vital Signs/Narrative: Vital Signs Temp Pulse Resp BP Pulse Ox 06/15/20 12:27 98.4 F 60 14 152/91 H 99 Inital Vital Signs reviewed: Yes General: Well nourished, Well developed, Acute Distress - Uncomfortable, in position, covering her head and body with her fleece Head: Normocephalic, Atraumatic Eyes: Perrl, EOMI ENT: Moist mucous membranes, No rhinorrhea Neck: Supple, Nontender Cardiovascular: Regular rate, Regular rhythm, No murmurs. Negative for: Tachycardia Respiratory: No distress, CTA bilaterally, Chest nontender Abdomen: Soft, Nondistended, Normal bowel sounds, Tender - Diffusely, Guarding - Voluntary, limiting exam. Negative for: Rebound tenderness Back: Nontender, Normal Inspection Extremities: Nontender, No edema Skin: Normal color, No rash, No Trauma Neurological: Alert, Oriented x3, Cranial nerves II-XII grossly intact, Normal Strength, Normal Sensation, Normal Gait Psychological: - - Anxious. 1-2 word answers to questions. Diagnostic/Tx/Re-eval Laboratory Tests 06/15/20 06/15/20 Range/Units 13:15 13:15 WBC 12.2 H (4.4-11.0) K/mm3 RBC 4.75 (4.2-5.4) M/mm3 Hgb 13.9 (12.0-15.0) g/dL Hct 41.3 (37-47) % MCV 86.9 (81-99) fL MCH 29.3 (27.0-32.0) pg MCHC 33.7 (32-36) g/dL RDW Std Deviation 38.8 (35.1-43.9) fl RDW Coeff of Fabian 12.4 (11.6-14.6) % Plt Count 289 (150-450) K/mm3 MPV 8.9 (6.2-12.0) fl Immature Gran % (Auto) 0.200 (0.0-0.9) % Neut % (Auto) 70.5 H (47-70) % Lymph % (Auto) 22.1 (19-41) % Bullock % (Auto) 6.8 (0-10) % Eos % (Auto) 0.2 (0-5) % Baso % (Auto) 0.2 (0-1) % Absolute Neuts (auto) 8.6 H (2.0-7.7) X10^3/uL Absolute Lymphs (auto) 2.70 (0.83-4.51) X10^3/uL Nucleated RBC % 0 (0-5) % Sodium 141 (136-145) mmol/L Potassium 3.2 L (3.5-5.1) mmol/L Chloride 105 (98-107) mmol/L Carbon Dioxide 29.0 (21.0-32.0) mmol/L Anion Gap 7 (5-15) BUN 14 (7-18) mg/dL Creatinine 1.02 (0.55-1.02) mg/dL Estim Creat Clear Calc 70.59 ml/min Est GFR (MDRD) Af Amer 80 (>60) mL/min Est GFR (MDRD) Non-Af 66 (>60) mL/min BUN/Creatinine Ratio 13.7 (10-20) RATIO Glucose 110 H (74-106) mg/dL Calcium 9.6 (8.5-10.1) mg/dL Lipase 68 L (73-393) U/L - Medical Decision Making Patient was ordered a liter of IV fluids, Reglan, some Ativan all of which to help her symptoms, in addition to IV Protonix. On reexamination, she is resting comfortably with no more vomiting. Patient was allowed to rest and subsequently was offered a GI cocktail since she stated that her chest was bothering her from all of the vomiting which I suspect is esophageal in nature; she declined that. I do not suspect any emergent/surgical GI process at this time. She likely has vomiting and diarrhea that has exacerbated her cyclic vomiting syndrome. She is tolerating oral Sprite, and she will be discharged with a prescription for some potassium supplementation which I will not give her now since she has been vomiting quite a bit this morning. ED Disposition - Plan for ED Patient: Disposition: Home or Assisted Living Diagnosis: Nausea vomiting and diarrhea, Cyclic vomiting syndrome, Hypokalemia due to excessive gastrointestinal loss of potassium Instructions: ED Vomiting and Diarrhea ... Prescriptions: Potassium Chloride 20 meq PO BID #10 [email or web address] Prescription Printed Referrals: Sergio Grover DO [Primary Care Provider] - 3-5 Days if not improving
[2020-06-15 13:26] LABS: Absolute Neutrophil Count 8.6 X10^3/uL (2.0-7.7); Basophil# 0.03 X10^3/uL; Basophil% 0.2 % (0-1); Eosinophil# 0.02 X10^3/uL; Eosinophils% 0.2 % (0-5); Hematocrit 41.3 % (37-47); Hemoglobin 13.9 g/dL (12.0-15.0); Lymphocyte % 22.1 % (19-41); Mean Corp Hgb Conc 33.7 g/dL (32-36); Mean Corpuscular Hgb 29.3 pg (27.0-32.0); Mean Corpuscular Volume 86.9 fL (81-99); Mean Platelet Vol. 8.9 fl (6.2-12.0); Monocyte# 0.83 X10^3/uL; Monocyte% 6.8 % (0-10); NRBC Flagged by Analyzer 0 % (0-5); Neutrophil # 8.59 X10^3/uL (2.7-7.7); Neutrophil % 70.5 % (47-70); Platelet Count 289 K/mm3 (150-450); RBC Distribution Width CV 12.4 % (11.6-14.6); RBC Distribution Width SD 38.8 fl (35.1-43.9); Red Blood Count 4.75 M/mm3 (4.2-5.4); White Blood Count 12.2 K/mm3 (4.4-11.0)
[2020-06-15 13:38] LABS: Anion Gap 7 (5-15); BUN 14 mg/dL (7-18); BUN/Creat Ratio 13.7 RATIO (10-20); Calcium,Total 9.6 mg/dL (8.5-10.1); Chloride 105 mmol/L (98-107); Creatinine, Serum 1.02 mg/dL (0.55-1.02); EST Glomerular Filtration Rate 66 mL/min (>60); Est Glom Filt Rate - Afr Amer 80 mL/min (>60); Estimated Creatinine Clearance 70.59 ml/min; Glucose 110 mg/dL (74-106); Lipase 68 U/L (73-393); Potassium 3.2 mmol/L (3.5-5.1); Sodium Level 141 mmol/L (136-145)
[2020-06-15] MEDS: LORazepam 2 MG/ML Syringe 0.5 MG IV (13:41)
[2020-06-15] MEDS: Metoclopramide 10 MG/2 ML Vial IV (13:42)
[2020-06-15] MEDS: 0.9% Normal Saline 1,000 ML 1000 ML IV (13:42)
--- NOTE | 2020-06-15 15:25 | ED.RN ---
unable to acknowledge GI COCKTAIL, MYLANTA AND VISCOUS LIDOCAINE WERE ADMINISTERED PER PT'S REQUEST AT THIS TIME.
[2020-06-15 15:28] VITALS: BP 161/98; PULSE 71; RESP 16; O2SAT 100
== END 2020-06-15 15:36 | disposition home or self-care (01) ==
PROVIDERS: Emergency Provider Emergency Medicine; PCP Student in an Organized Health Care Education/Training Program
DX: R11.15 Cyclical vomiting syndrome unrelated to migraine (principal); E87.6 Hypokalemia; R19.7 Diarrhea, unspecified; K21.9 Gastro-esophageal reflux disease without esophagitis; F17.200 Nicotine dependence, unspecified, uncomplicated
CPT/HCPCS: 80048; 83690; 85025; 96365; 96366; 96375; 99283; J7030; A4216; J3490

== ENCOUNTER 2020-06-16 09:46 | Emergency (ER) | payer MEDICAID, SELFPAY ==
[2020-06-15 12:27] VITALS: BMI 24.9
[2020-06-16 09:47] VITALS: BP 130/85; PULSE 62; RESP 18; TEMP 36.2; O2SAT 99; BMI 25.7
--- NOTE | 2020-06-16 10:06 | ED.VISSUMM ---
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 She reports that her kids had vomiting and diarrhea earlier this week, but their symptoms have resolved. She reports that she has vomiting and diarrhea has been going on for the past 4 days. She vomiting multiple times per day. She estimates 10 times already today. There is been no blood in her emesis. She reports that her diarrhea is actually improving. Her last bowel movement was yesterday. She had no melena or hematochezia. Patient reports that she has sharp, aching abdominal pain is 10 of 10 severity. Is worsened by movement or touching it. Is relieved by nothing. She has been taking Zofran and Phenergan suppositories at home without improvement. She does report that she has a history of cyclic vomiting and states that this is the same as that has been in the past. When asked if it has lasted this long previously she reports it lasted 2 weeks before. On review of systems patient complains of an aching headache that 7 out of 10 in severity. Is diffuse. She had similar headaches previously. She also complains of chills and generalized weakness. She denies any other complaints. Physical Examination: Vitals: Stable. Afebrile. General: Well-nourished and well-developed. Head: Normocephalic atraumatic. Neck: Supple, no lymphadenopathy. No JVD. Nontender. Cardiovascular: Regular rate and rhythm. No murmurs. Respiratory: No respiratory distress. Clear to auscultation bilaterally. Abdominal: Soft, mild diffuse tenderness to palpation, nondistended, normal bowel sounds. No guarding, rebound, or peritoneal signs. Back: Nontender. Extremities: Nontender, no edema. Skin: Normal color, no rash. Neurologic: Alert and oriented ?3. Cranial nerves II through XII are intact. Normal strength and sensation. Psych: Normal affect. Test Results: CBC shows a white count of 11.3 and 73 segmented neutrophils. Chem-7 is normal. LFTs are normal. Lipase is 65. test was -2 days ago and was not repeated. Emergency Department Course and Treatment: Patient was treated with the cyclic vomiting pathway. She was given Ativan, Pepcid, Zofran, Benadryl, and Thorazine IV. She was given Toradol and Bentyl for pain. She was given a liter of normal saline. I discussed the patient the possibility of imaging with a CT scan. Patient again reports that this is similar when she is had cyclic vomiting in the past and does not want to have a CT. I do think that that is a reasonable course of action. Treatment Plan: Patient will be discharged with instructions to continue the Bentyl, Zofran and Phenergan. Push fluids. Follow-up with her primary care physician in 1 to 2 days if not improving. Return to the emergency department for any worsening symptoms. Disposition: To home in improved and stable condition. Impression: 1. Vomiting/diarrhea. 2. History of cyclic vomiting. This note was generated with [employer] dictation software. It may contain incorrect words, spelling, and punctuation that were not noted in review of the chart prior to signing ED Disposition - Plan for ED Patient: Instructions: ED Vomiting and Diarrhea ... Prescriptions: Dicyclomine HCl [Bentyl] 20 mg PO TIDAC #20 capsule Prescription Printed Chlorpromazine HCl 10 mg PO 4X/DAY PRN PRN #10 tablet PRN Reason: Nausea proMETHazine suppository [Phenergan Suppository] 25 mg RECTAL Q6H PRN PRN #6 suppos. PRN Reason: Nausea Prescription Printed proMETHazine tablet [Phenergan] 25 mg PO Q6H PRN PRN #10 tab PRN Reason: Nausea Prescription Printed Ondansetron [Zofran Odt] 4 mg PO Q8H PRN PRN #10 tablet PRN Reason: Nausea Prescription Printed Referrals: Sergio Grover, [Primary Care Provider] - 1-2 Days if not improving
[2020-06-16] MEDS: Ondansetron 4 MG/2 ML Vial IV (10:13)
[2020-06-16] MEDS: LORazepam 2 MG/ML Syringe 0.5 MG IV (10:13)
[2020-06-16] MEDS: 0.9% Normal Saline 1,000 ML 1000 ML IV (10:13)
[2020-06-16 10:19] LABS: Absolute Lymphocyte Count 2.34 X10^3/uL (0.83-4.51); Absolute Neutrophil Count 8.2 X10^3/uL (2.0-7.7); Basophil# 0.03 X10^3/uL; Basophil% 0.3 % (0-1); Eosinophil# 0.03 X10^3/uL; Eosinophils% 0.3 % (0-5); Hematocrit 39.4 % (37-47); Hemoglobin 13.3 g/dL (12.0-15.0); Lymphocyte # 2.34 X10^3/ul (4.0); Lymphocyte % 20.8 % (19-41); Mean Corp Hgb Conc 33.8 g/dL (32-36); Mean Corpuscular Hgb 29.5 pg (27.0-32.0); Mean Corpuscular Volume 87.4 fL (81-99); Mean Platelet Vol. 8.7 fl (6.2-12.0); Monocyte% 5.3 % (0-10); NRBC Flagged by Analyzer 0 % (0-5); Neutrophil # 8.23 X10^3/uL (2.7-7.7); Platelet Count 258 K/mm3 (150-450); RBC Distribution Width CV 12.2 % (11.6-14.6); RBC Distribution Width SD 38.9 fl (35.1-43.9); Red Blood Count 4.51 M/mm3 (4.2-5.4); White Blood Count 11.3 K/mm3 (4.4-11.0)
[2020-06-16] MEDS: Famotidine 200 MG/20 ML MDV 20 MG in 0.9% Normal Saline (Pres. free 8 ML 300 MG IV (10:20)
[2020-06-16] MEDS: Ketorolac 15 MG/ML Vial IV (10:26)
[2020-06-16] MEDS: Dicyclomine 20 MG/2 ML Vial IM (10:26)
[2020-06-16 10:38] LABS: ALB/GLOB Ratio 1.2 RATIO (0.9-2.4); AST(SGOT) 17 U/L (15-37); Alanine Aminotransfer ALT/SGPT 27 U/L (13-56); Albumin, Serum 4.3 g/dL (3.2-5.0); Alkaline Phosphatase 73 U/L (45-117); Anion Gap 11 (5-15); BUN 14 mg/dL (7-18); BUN/Creat Ratio 14.2 RATIO (10-20); Calcium,Total 9.2 mg/dL (8.5-10.1); Chloride 105 mmol/L (98-107); Creatinine, Serum 0.98 mg/dL (0.55-1.02); EST Glomerular Filtration Rate 69 mL/min (>60); Est Glom Filt Rate - Afr Amer 83 mL/min (>60); Estimated Creatinine Clearance 67.54 ml/min; Globulin 3.7 g/dL (2.2-4.2); Glucose 88 mg/dL (74-106); Lipase 65 U/L (73-393); Potassium 3.5 mmol/L (3.5-5.1); Sodium Level 140 mmol/L (136-145)
[2020-06-16] MEDS: 0.9% Normal Saline 1,000 ML 999 ML IV ×2 (11:10→12:41)
[2020-06-16 12:42] VITALS: BP 152/92; PULSE 57; RESP 16; O2SAT 100
== END 2020-06-16 13:55 | disposition home or self-care (01) ==
PROVIDERS: Emergency Provider Emergency Medicine; PCP Student in an Organized Health Care Education/Training Program
DX: R11.10 Vomiting, unspecified (principal); R19.7 Diarrhea, unspecified; F17.290 Nicotine dependence, other tobacco product, uncomplicated
CPT/HCPCS: 80053; 83690; 85025; 96361; 96365; 96372; 96375; 99283; J7030; A4216; J2405; J3490

== ENCOUNTER 2021-02-23 15:32 | Emergency (ER) | payer MEDICAID, SELFPAY ==
[2021-02-23 15:33] VITALS: BP 135/90; PULSE 110; RESP 18; TEMP 35.9; O2SAT 99; BMI 24.7
[2021-02-23 16:56] VITALS: O2SAT 96
--- NOTE | 2021-02-23 16:56 | EKG12_ITS ---
Test Reason : CP Blood Pressure : / mmHG Vent. Rate : 060 BPM Atrial Rate : 060 BPM P-R Int : 156 ms QRS Dur : 074 ms QT Int : 414 ms P-R-T Axes : 078 070 067 degrees QTc Int : 414 ms Normal sinus rhythm Normal ECG Confirmed by GEETA JIMENEZ, IVANNA ([id number]), photographic editor KYLER MADISON ([id number]) on 02/26/2021 8:48:50 AM Referred By: JEANETTE/AVILA Confirmed By:KYLE CONNOR MD
--- NOTE | 2021-02-23 16:56 | ED.RN ---
pt calls out c/o chest pain. called for EKG. chest pain protocol ordered.
--- NOTE | 2021-02-23 17:10 | RAD_ITS ---
STUDY: X-RAY CHEST REASON FOR EXAM: Female, 35 years old. chest pain TECHNIQUE: Single frontal view of the chest. COMPARISON: CT chest 02/23/2021 and chest x-ray 12/25/2017 FINDINGS: The lungs are clear and expanded. There is no demonstrated pleural abnormality. Normal size heart. Normal mediastinum and yvonne. Normal visualized pulmonary arteries. Normal visualized aortic arch and descending thoracic aorta. Normal visualized thoracic spine. Normal visualized ribs, clavicles, and shoulders. There is no demonstrated abnormality of the visualized soft tissue structures of the upper abdomen. RAD/Chest 1 View (Portable) IMPRESSION: Normal x-ray examination of the chest. Electronically Signed: Corey Connor MD at 22:29 EST , Service support ,
[2021-02-23 17:13] LABS: Absolute Lymphocyte Count 0.35 X10^3/uL (0.83-4.51); Absolute Neutrophil Count 9.9 X10^3/uL (2.0-7.7); Basophil# 0.02 X10^3/uL; Basophil% 0.2 % (0-1); Eosinophil# 0.01 X10^3/uL; Eosinophils% 0.1 % (0-5); Hematocrit 41.7 % (37-47); Hemoglobin 13.9 g/dL (12.0-15.0); Lymphocyte # 0.35 X10^3/ul (0.83-4.51); Lymphocyte % 3.2 % (19-41); Mean Corp Hgb Conc 33.3 g/dL (32-36); Mean Corpuscular Hgb 28.6 pg (27.0-32.0); Mean Corpuscular Volume 85.8 fL (81-99); Mean Platelet Vol. 11.2 fl (6.2-12.0); Monocyte# 0.49 X10^3/uL; Monocyte% 4.5 % (0-10); NRBC Flagged by Analyzer 0 % (0-5); Neutrophil # 9.86 X10^3/uL (2.7-7.7); Neutrophil % 91.6 % (47-70); POSITIVE COUNT YES; POSITIVE DIFFERENTIAL YES; Platelet Count 114 K/mm3 (150-450); RBC Distribution Width CV 11.9 % (11.6-14.6); RBC Distribution Width SD 36.8 fl (35.1-43.9); Red Blood Count 4.86 M/mm3 (4.2-5.4); White Blood Count 10.8 K/mm3 (4.4-11.0)
[2021-02-23 17:15] LABS: Differential Indicated SCAN CRITERIA MET
[2021-02-23 17:31] LABS: AST(SGOT) 17 U/L (15-37); Alanine Aminotransfer ALT/SGPT 31 U/L (13-56); Albumin, Serum 4.9 g/dL (3.2-5.0); Alkaline Phosphatase 76 U/L (45-117); Anion Gap 8 (5-15); BUN 9 mg/dL (7-18); BUN/Creat Ratio 9.2 RATIO (10-20); Bilirubin, Direct 0.13 mg/dL (0.00-0.30); Calcium,Total 10.1 mg/dL (8.5-10.1); Chloride 103 mmol/L (98-107); Creatinine, Serum 0.98 mg/dL (0.55-1.02); EST Glomerular Filtration Rate 69 mL/min (>60); Est Glom Filt Rate - Afr Amer 83 mL/min (>60); Estimated Creatinine Clearance 66.91 ml/min; Globulin 4.4 g/dL (2.2-4.2); Glucose 132 mg/dL (74-106); Lipase 31 U/L (73-393); Potassium 3.6 mmol/L (3.5-5.1); Protein, Total 9.3 g/dL (6.4-8.2); Sodium Level 135 mmol/L (136-145); Troponin-I HS < 3 pg/mL (3.0-54.0)
[2021-02-23] MEDS: proMETHazine 25 MG/ML Syringe 12.5 MG IM (17:42)
[2021-02-23 17:49] LABS: Differential Comment SCANNED
--- NOTE | 2021-02-23 17:56 | CT_ITS ---
STUDY: CTA CHEST w/wo REASON FOR EXAM: Female, 35 years old. CHEST PAIN Technologist Notes Other, NAUSEA AND VOMITING,+ COVID TECHNIQUE: The examination was performed with and without the intravenous administration of 75 cc of IV Isovue 370 contrast material. Post-processing of the angiographic images was performed, with axial imaging and 3D reconstruction. MIPS images were obtained. Individualized dose optimization techniques were used for this CT. COMPARISON: None. FINDINGS: Normal enhancement of the main pulmonary artery and right and left pulmonary arteries. Normal enhancement of the bilateral peripheral pulmonary arteries. There is no demonstrated pulmonary embolism. Normal thoracic aorta and visualized great vessels. There is no demonstrated aortic dissection. Normal heart and pericardium. Normal mediastinum. Normal hilar regions. Normal visualized trachea and bronchi. The lungs are well expanded. Normal pulmonary parenchyma. Normal pleura. Normal chest wall structures. Normal osseous structures. Normal visualized upper abdomen. IMPRESSION: (NOT LISTED IN ORDER OF SIGNIFICANCE) Normal CTA chest examination, without a demonstrated pulmonary embolism or arterial dissection. Electronically Signed: Kenny Wilson MD at 20:45 EST , Service support , CT/CTA Chest W/WO Contrast
[2021-02-23 18:04] LABS: Internal QC Validated? YES +Cl - CLEAR BKGD; Pregnancy, Serum, hCG Quali. NEGATIVE Negative
[2021-02-23] MEDS: 0.9% Normal Saline 1,000 ML 999 ML IV (18:34)
--- NOTE | 2021-02-23 18:56 | EDS_ITS ---
HPI HPI - GI History of Present Illness Chief Complaint: Nausea/Vomiting Narrative Narrative: 35-year-old female presenting with nausea, vomiting. She has a history of GERD, cyclic vomiting. She states he was having some upper back and chest and epigastric pain yesterday and was tested for Covid and tested positive. Is here today because she is been vomiting a lot. She states she has not had a fever. She does believe she having muscle cramps. PFSH PFS Medical History Cyclic vomiting syndrome Home Medications ondansetron 4 mg PO Q8H PRN PRN #10 tablet 06/14/20 [Rx Last Taken Unknown] promethazine 25 mg PO Q6H PRN PRN #10 tab 06/14/20 [Rx Last Taken Unknown] promethazine 25 mg RECTAL Q6H PRN PRN #6 suppos. 06/14/20 [Rx Last Taken Unknown] chlorpromazine 10 mg PO 4X/DAY PRN PRN #10 tablet 06/16/20 [Rx Last Taken Unknown] dicyclomine 20 mg PO TIDAC #20 capsule 06/16/20 [Rx Last Taken Unknown] ondansetron 4 mg PO Q8H PRN PRN #10 tablet 06/16/20 [Rx Last Taken Unknown] promethazine 25 mg PO Q6H PRN PRN #10 tab 06/16/20 [Rx Last Taken Unknown] promethazine 25 mg RECTAL Q6H PRN PRN #6 suppos. 06/16/20 [Rx Last Taken Unknown] dicyclomine 10 mg PO TID PRN #20 cap 02/23/21 [Rx Last Taken Unknown] ondansetron 4 mg PO Q8H PRN PRN #14 tab 02/23/21 [Rx Last Taken Unknown] Allergy/AdvReac Type Severity Reaction Status Date / Time Fish Containing Products Allergy Swelling Verified 02/23/21 15:36 Social History Smoking Status: Current every day smoker tobacco type: cigarettes ROS ROS ED Constitutional Constitutional ED: Denies chills or fever(s) ENT ENT ED: Denies rhinorrhea or sore throat Cardiovascular Cardiovascular: Reports chest pain; Denies palpitations Respiratory/Chest Respiratory/Chest: Reports cough; Denies dyspnea Gastrointestinal Gastrointestinal: Reports abdominal pain, diarrhea, nausea and vomiting Genitourinary Genitourinary ED: Denies dysuria or hematuria Musculoskeletal Musculoskeletal: Reports myalgias; Denies arthralgias Integumentary Denies abscess or rash Neurologic Neurologic: Reports headache(s); Denies paresthesias or weakness EXAM Physical Exam Const Vital Signs: 02/23/21 15:33 02/23/21 16:55 02/23/21 16:56 Temperature 96.6 F L Temperature Source Temporal Pulse Rate 110 H Respiratory Rate 18 Respiratory Effort Normal Short of Breath Respiratory Pattern Normal Blood Pressure 135/90 H Blood Pressure Mean 105 Pulse Ox 99 96 Oxygen Delivery Method Room Air Room Air 02/23/21 17:00 02/23/21 20:00 Temperature Temperature Source Pulse Rate 79 Respiratory Rate 16 Respiratory Effort Respiratory Pattern Blood Pressure 135/88 H Blood Pressure Mean 103 Pulse Ox 100 Oxygen Delivery Method Room Air Room Air Positive well nourished and obese General Appearance ED: Negative for pallor Nutritional Appearance: obese HEENT normocephalic and atraumatic Eyes PERRL and EOMs intact bilaterally Resp normal respiratory effort and clear to auscultation bilaterally Cardio regular rhythm Rate: tachycardic GI non-distended GI Narrative: Generalized tenderness. Palpation: soft Extremity full ROM General Extremety ED: Negative for edema General Extremity: Negative for edema Neuro Sensorium / Orientation: alert, oriented to person, oriented to place and oriented to time Psych mental status grossly normal and thought process normal Skin General Skin Exam: Negative for jaundice or pallor MDM MDM MDM Narrative Medical decision making narrative: Patient presented with nausea and vomiting epigastric pain and chest pain. Patient states this has been happening since last night. She was diagnosed with COVID-19 yesterday. She has a history of cyclic vomiting. She is not had a fever. Patient given Phenergan and IV fluids on arrival. She was having some muscle cramping which appears to improved. For the chest pain standpoint she has an EKG which is sinus rhythm with ventricular rate of 60 bpm without sign of ischemic change. High-sensitivity troponin is 3 and since this has been occurring since overnight I believe this rules her out for cardiac. CTA of the chest is negative for acute findings. She is CBC and CMP are unremarkable. Lipase is negative. Urine negative. Patient was given Haldol for her nausea which returned. She feels well enough to be discharged home at this time. I will go prescriptions for Zofran and Bentyl. She states she has Phenergan at home. Impression: 1. History of cyclic vomiting 2. COVID-19 Lab Data Attestation: I reviewed the patient's lab results. Labs: Laboratory Results - last 24 hr 02/23/21 02/23/21 02/23/21 16:30 16:30 16:30 WBC 10.8 RBC 4.86 Hgb 13.9 Hct 41.7 MCV 85.8 MCH 28.6 MCHC 33.3 RDW Std Deviation 36.8 RDW Coeff of Fabian 11.9 Plt Count 114 L MPV 11.2 Immature Gran % (Auto) 0.400 Neut % (Auto) 91.6 H Lymph % (Auto) 3.2 L Anson % (Auto) 4.5 Eos % (Auto) 0.1 Baso % (Auto) 0.2 Absolute Neuts (auto) 9.9 H Absolute Lymphs (auto) 0.35 L Nucleated RBC % 0 Differential Comment SCANNED Sodium 135 L Potassium 3.6 Chloride 103 Carbon Dioxide 24.0 Anion Gap 8 BUN 9 Creatinine 0.98 Estim Creat Clear Calc 66.91 Est GFR (MDRD) Af Amer 83 Est GFR (MDRD) Non-Af 69 BUN/Creatinine Ratio 9.2 L Glucose 132 H Calcium 10.1 Total Bilirubin 0.30 Direct Bilirubin 0.13 AST 17 ALT 31 Alkaline Phosphatase 76 Troponin I High Sens < 3 L Total Protein 9.3 H Albumin 4.9 Globulin 4.4 H Lipase 31 L Serum , Qual NEGATIVE Urine Color Urine Clarity Urine pH Ur Specific [place] Urine Protein Urine Glucose (UA) Urine Ketones Urine Occult Blood Urine Nitrite Urine Bilirubin Urine Urobilinogen Ur Leukocyte Esterase Urine RBC Urine WBC Ur Squamous Epith Cells Urine Bacteria Urine Mucus 02/23/21 19:05 WBC RBC Hgb Hct MCV MCH MCHC RDW Std Deviation RDW Coeff of Fabian Plt Count MPV Immature Gran % (Auto) Neut % (Auto) Lymph % (Auto) [place]son % (Auto) Eos % (Auto) Baso % (Auto) Absolute Neuts (auto) Absolute Lymphs (auto) Nucleated RBC % Differential Comment Sodium Potassium Chloride Carbon Dioxide Anion Gap BUN Creatinine Estim Creat Clear Calc Est GFR (MDRD) Af Amer Est GFR (MDRD) Non-Af BUN/Creatinine Ratio Glucose Calcium Total Bilirubin Direct Bilirubin AST ALT Alkaline Phosphatase Troponin I High Sens Total Protein Albumin Globulin Lipase Serum , Qual Urine Color Yellow Urine Clarity Clear Urine pH 6.5 Ur Specific [place] 1.010 Urine Protein 100 H Urine Glucose (UA) 50 H Urine Ketones 150 A* Urine Occult Blood 50 H Urine Nitrite Negative Urine Bilirubin Negative Urine Urobilinogen Normal Ur Leukocyte Esterase Negative Urine RBC 0-5 SEEN Urine WBC 0 SEEN Ur Squamous Epith Cells 0-5 SEEN Urine Bacteria 0 SEEN Urine Mucus 0 SEEN Radiography Diagnostic Testing: Clinical Impression(s) from Imaging Studies Chest CTA 02/23/21 17:56 Discharge Plan Triage Chief Complaint: Nausea/Vomiting ED Provider: Luis Fernando Yuan Dx/Rx/DC Orders Instructions: Coronavirus Disease 2019 (COVID-19): Caring for Yourself or Others, ED Cyclic Vomiting Syndrome Prescriptions: New dicyclomine 10 mg capsule 10 mg PO TID PRN (Reason: pain) Qty: 20 RF: 0 ondansetron 4 mg tablet,disintegrating 4 mg PO Q8H PRN PRN (Reason: Nausea) Qty: 14 RF: 0 No Action ondansetron 4 MG tablet 4 mg PO Q8H PRN PRN (Reason: Nausea) Qty: 10 RF: 0 promethazine 25 MG suppository 25 mg RECTAL Q6H PRN PRN (Reason: Nausea) Qty: 6 RF: 0 promethazine 25 MG tablet 25 mg PO Q6H PRN PRN (Reason: Nausea) Qty: 10 RF: 0 promethazine 25 MG suppository 25 mg RECTAL Q6H PRN PRN (Reason: Nausea) Qty: 6 RF: 0 promethazine 25 MG tablet 25 mg PO Q6H PRN PRN (Reason: Nausea) Qty: 10 RF: 0 ondansetron 4 MG tablet 4 mg PO Q8H PRN PRN (Reason: Nausea) Qty: 10 RF: 0 dicyclomine 10 MG capsule 20 mg PO TIDAC Qty: 20 RF: 0 chlorpromazine 10 MG tablet 10 mg PO 4X/DAY PRN PRN (Reason: Nausea) Qty: 10 RF: 0 Primary Care Provider: Sergio Grover Referrals: Sergio Grover DO [Primary Care Provider] - Friend,DO Florentin [STAFF PHYSICIAN] - As soon as possible Disposition Disposition: Home, Self Care
[2021-02-23 19:09] LABS: Bacteria 0 SEEN /hpf (None Seen); Mucous, Urine 0 SEEN /hpf (<or=2+); White Blood Cells 0 SEEN /hpf (0-5)
[2021-02-23 19:16] LABS: Color, Urine Yellow (Yellow); Glucose, Dipstick 50 mg/dl (Normal); Leukocyte Esterase-Dipstick Negative /ul (Negative); Nitrite-Dipstick Negative (Negative); Occult Blood-Urine 50 /ul (Negative); Protein-Dipstick 100 mg/dl (Negative); Urine Bilirubin Dipstick Negative (Negative); Urine Clarity Clear (Clear); Urine Urobilinogen Normal (Normal); Urine pH 6.5 (5.0 - 8.0)
[2021-02-23 19:20] LABS: Ketone-Dipstick 150 mg/dl (Negative)
[2021-02-23 19:21] LABS: Red Blood Cells-Urine 0-5 SEEN /hpf (0-5); Squamous Epithelial Cells - UA 0-5 SEEN /hpf (5-10)
[2021-02-23 20:00] VITALS: BP 135/88; PULSE 79; RESP 16; O2SAT 100
[2021-02-23] MEDS: Haloperidol Lactate 5 MG/ML Vial 2 MG IV (20:23)
[2021-02-23 21:45] VITALS: BP 130/72; PULSE 76; RESP 18; O2SAT 97
== END 2021-02-23 21:46 | disposition home or self-care (01) ==
PROVIDERS: Emergency Provider Student in an Organized Health Care Education/Training Program; PCP Student in an Organized Health Care Education/Training Program
DX: U07.1 COVID-19 (principal); R11.15 Cyclical vomiting syndrome unrelated to migraine; K21.9 Gastro-esophageal reflux disease without esophagitis; F17.210 Nicotine dependence, cigarettes, uncomplicated; E66.9 Obesity, unspecified
CPT/HCPCS: 71045; 71275; 80048; 80076; 81001; 83690; 84484; 84703; 85025; 93005; 96361; 96372; 96374; 99285; J7030; Q9967; A4216

== ENCOUNTER 2021-02-27 08:14 | Observation (INO) | payer MEDICAID, SELFPAY ==
[2021-02-27] VITALS (8 sets, daily range): BP systolic 110–129; BP diastolic 76–101; PULSE 72–105; RESP 16–19; TEMP 36–37.3; O2SAT 95–100; BMI 23.7; BMI 21.7
--- NOTE | 2021-02-27 08:58 | EX.ED.DYSGE1 ---
HPI History of Present Illness Chief Complaint: Shortness of Breath Narrative Narrative: Patient presents with COVID-19 symptoms. She states she has past medical history of cyclic vomiting syndrome, along with irritable bowel syndrome. She states that her symptoms began , approximately 6 days ago. She feels tired, and short of breath. She has occasional cough, and body aches. She had nausea and vomiting. She was tested on and it was confirmed Friday. In the last 24 hours she has had multiple episodes of vomiting, stating that she fills up her trash can each day. Additionally, she has had 3 episodes of nonbloody diarrhea in the last 24 hours. She feels as if her Covid has set off her cyclic vomiting. She does admit to smoking marijuana on occasion. She denies abdominal pain with this, but has had myalgias and body aches along with generalized weakness. [facility] Medical History Cyclic vomiting syndrome Home Medications promethazine 25 mg PO Q6H PRN PRN #10 tab 06/14/20 [Rx Last Taken Unknown] promethazine 25 mg RECTAL Q6H PRN PRN #6 suppos. 06/14/20 [Rx Last Taken Unknown] chlorpromazine 10 mg PO 4X/DAY PRN PRN #10 tablet 06/16/20 [Rx Last Taken Unknown] dicyclomine 20 mg PO TIDAC #20 capsule 06/16/20 [Rx Last Taken Unknown] ondansetron 4 mg PO Q8H PRN PRN #14 tab 02/23/21 [Rx Last Taken Unknown] promethazine [Promethegan] 25 mg TN Q6H PRN PRN #6 ea 02/27/21 [Rx Last Taken Unknown] Allergy/AdvReac Type Severity Reaction Status Date / Time Fish Containing Products Allergy Swelling Verified 02/23/21 15:36 Social History Smoking Status: Current every day smoker tobacco type: cigarettes ROS ROS ED ROS Narrative Constitutional: Intermittent fever, no chills. HEENT: No sore throat. No neck pain. No loss of vision. No rhinorrhea. Cardiovascular: No chest pain. No palpitations. No pedal edema. Respiratory: Occasional cough, occasional shortness of breath. Abdominal: No abdominal pain. Positive nausea. Multiple episodes of vomiting. Genitourinary: No dysuria. No hematuria. Musculoskeletal: Positive myalgias. Positive arthralgias. Neurologic: No headaches. No dizziness. No lightheadedness. Generalized weakness Skin: No rash. No change in color. Psychiatric: No depression. No anxiety. EXAM Physical Exam Narrative Exam Narrative: Afebrile. Vital signs noted. HEENT: Normocephalic. Atraumatic. PERRL, EOMI. Neck soft and supple. No point tenderness or step off. Cardiovascular: Intermittent tachycardia. No murmurs, rubs, or gallops appreciated. Respiratory: No tachypnea. Lungs clear to auscultation bilaterally. Gastrointestinal: Abdomen soft, nontender, with normoactive bowel sounds. No rebound or guarding. Neurological: Awake. Alert. Nonfocal, nonlateralizing. Skin: No rash. Normal color. No pallor. Musculoskeletal: No pedal edema. Full range of motion extremities. Const Vital Signs: 02/27/21 08:15 02/27/21 08:30 02/27/21 10:10 Temperature 96.8 F L Temperature Source Temporal Pulse Rate 101 H 84 Respiratory Rate 18 16 Respiratory Effort Short of Breath Respiratory Pattern Tachypnea Blood Pressure 110/89 H 124/79 H Blood Pressure Mean 96 94 Pulse Ox 95 97 Oxygen Delivery Method Room Air Room Air 02/27/21 12:18 02/27/21 13:48 Temperature Temperature Source Pulse Rate 88 84 Respiratory Rate 17 18 Respiratory Effort Respiratory Pattern Blood Pressure 129/101 H 114/81 H Blood Pressure Mean 110 92 Pulse Ox 98 100 Oxygen Delivery Method Room Air Room Air MDM MDM MDM Narrative Medical decision making narrative: Comprehensive work-up was pursued given her persistent vomiting. Initially she had complained of shortness of breath. Her pulse ox is 95% on room air. Chest x-ray in 1 view shows no acute process. She has normal white count of 9.2, hemoglobin hemoconcentrated at 17.2 with a hematocrit of 49.4. Her electrolyte panel is grossly unremarkable except for slightly elevated CO2 of 35, she does have an acute kidney injury with a creatinine of 2.0. Serum is negative. Lipase is normal at 80. Her potassium is slightly low at 3.1. This was replaced orally. She had continued nausea so she was administered Phenergan 12.5 mg intravenously. She received a total of 2 L intravenously. Her urinalysis shows no evidence of infection, but there are ketones. I do feel that she may be mildly dehydrated. In comparison to her labs just a few days ago, her creatinine went from 0.9-2.0 with an elevated BUN. She is hypokalemic and unable to tolerate oral fluids. I will discuss patient with hospitalist for observation. She is in stable condition. I will start her potassium replacement intravenously through her peripheral line. Lab Data Attestation: I reviewed the patient's lab results. Labs: Laboratory Results - last 24 hr 02/27/21 02/27/21 02/27/21 09:13 09:13 09:13 WBC 9.2 RBC 5.81 H Hgb 17.2 H Hct 49.4 H MCV 85.0 MCH 29.6 MCHC 34.8 RDW Std Deviation 37.4 RDW Coeff of Fabian 12.1 Plt Count 245 MPV 9.1 Immature Gran % (Auto) 0.200 Neut % (Auto) 73.8 H Lymph % (Auto) 14.5 L Mower % (Auto) 11.3 H Eos % (Auto) 0.0 Baso % (Auto) 0.2 Absolute Neuts (auto) 6.8 Absolute Lymphs (auto) 1.33 Nucleated RBC % 0 Sodium 137 Potassium 3.1 L Chloride 94 L Carbon Dioxide 35.0 H Anion Gap 8 BUN 36 H Creatinine 2.00 H Estim Creat Clear Calc 32.79 Est GFR (MDRD) Af Amer 37 L Est GFR (MDRD) Non-Af 30 L BUN/Creatinine Ratio 18.0 Glucose 119 H Calcium 9.7 Total Bilirubin 0.30 AST 43 H ALT 51 Alkaline Phosphatase 85 Total Protein 10.0 H Albumin 4.5 Globulin 5.5 H Albumin/Globulin Ratio 0.8 L Lipase 80 Serum , Qual NEGATIVE Urine Color Urine Clarity Urine pH Ur Specific [place] Urine Protein Urine Glucose (UA) Urine Ketones Urine Occult Blood Urine Nitrite Urine Bilirubin Urine Urobilinogen Ur Leukocyte Esterase Urine RBC Urine WBC Ur Squamous Epith Cells Urine Bacteria Hyaline Casts Urine Mucus 02/27/21 12:00 WBC RBC Hgb Hct MCV MCH MCHC RDW Std Deviation RDW Coeff of Fabian Plt Count MPV Immature Gran % (Auto) Neut % (Auto) Lymph % (Auto) Mower % (Auto) Eos % (Auto) Baso % (Auto) Absolute Neuts (auto) Absolute Lymphs (auto) Nucleated RBC % Sodium Potassium Chloride Carbon Dioxide Anion Gap BUN Creatinine Estim Creat Clear Calc Est GFR (MDRD) Af Amer Est GFR (MDRD) Non-Af BUN/Creatinine Ratio Glucose Calcium Total Bilirubin AST ALT Alkaline Phosphatase Total Protein Albumin Globulin Albumin/Globulin Ratio Lipase Serum , Qual Urine Color Yellow Urine Clarity Sl. Cloudy Urine pH 5.0 Ur Specific [place] 1.025 Urine Protein 100 H Urine Glucose (UA) Normal Urine Ketones 50 H Urine Occult Blood 25 H Urine Nitrite Negative Urine Bilirubin Negative Urine Urobilinogen Normal Ur Leukocyte Esterase Negative Urine RBC 0-5 SEEN Urine WBC 0 SEEN Ur Squamous Epith Cells 0-5 SEEN Urine Bacteria 1+ Hyaline Casts 0-5 SEEN Urine Mucus 0 SEEN Radiography Diagnostic Testing: Clinical Impression(s) from Imaging Studies Chest X-Ray 02/27/21 09:40 IMPRESSION: Normal x-ray examination of the chest. Electronically Signed: Preet Lewis MD at 10:06 EST , Service support , Discharge Plan Triage Chief Complaint: Shortness of Breath ED Provider: Agustin Ellis Dx/Rx/DC Orders Clinical Impression: COVID-19, Nausea & vomiting, Cyclic vomiting syndrome, Acute hypokalemia, Acute kidney injury, Acute dehydration Prescriptions: New promethazine [Promethegan] 25 mg suppository 25 mg TN Q6H PRN PRN (Reason: Nausea) Qty: 6 RF: 0 No Action promethazine 25 MG suppository 25 mg RECTAL Q6H PRN PRN (Reason: Nausea) Qty: 6 RF: 0 promethazine 25 MG tablet 25 mg PO Q6H PRN PRN (Reason: Nausea) Qty: 10 RF: 0 dicyclomine 10 MG capsule 20 mg PO TIDAC Qty: 20 RF: 0 chlorpromazine 10 MG tablet 10 mg PO 4X/DAY PRN PRN (Reason: Nausea) Qty: 10 RF: 0 ondansetron 4 mg tablet,disintegrating 4 mg PO Q8H PRN PRN (Reason: Nausea) Qty: 14 RF: 0 Primary Care Provider: Sergio Grover Referrals: Sergio Grover DO [Primary Care Provider] - 03/01/21 Disposition Disposition: Home, Self Care
[2021-02-27 09:27] LABS: Absolute Lymphocyte Count 1.33 X10^3/uL (0.83-4.51); Absolute Neutrophil Count 6.8 X10^3/uL (2.0-7.7); Basophil# 0.02 X10^3/uL; Basophil% 0.2 % (0-1); Hematocrit 49.4 % (37-47); Hemoglobin 17.2 g/dL (12.0-15.0); Lymphocyte # 1.33 X10^3/ul (0.83-4.51); Lymphocyte % 14.5 % (19-41); Mean Corp Hgb Conc 34.8 g/dL (32-36); Mean Corpuscular Hgb 29.6 pg (27.0-32.0); Mean Platelet Vol. 9.1 fl (6.2-12.0); Monocyte# 1.04 X10^3/uL; Monocyte% 11.3 % (0-10); NRBC Flagged by Analyzer 0 % (0-5); Neutrophil # 6.79 X10^3/uL (2.7-7.7); Neutrophil % 73.8 % (47-70); Platelet Count 245 K/mm3 (150-450); RBC Distribution Width CV 12.1 % (11.6-14.6); RBC Distribution Width SD 37.4 fl (35.1-43.9); Red Blood Count 5.81 M/mm3 (4.2-5.4); White Blood Count 9.2 K/mm3 (4.4-11.0)
[2021-02-27 09:34] LABS: Internal QC Validated? YES +Cl - CLEAR BKGD; Pregnancy, Serum, hCG Quali. NEGATIVE Negative
--- NOTE | 2021-02-27 09:40 | RAD_ITS ---
STUDY: X-RAY CHEST REASON FOR EXAM: Female, 35 years old. Shortness of Breath, Covid TECHNIQUE: Single AP portable view of the chest. COMPARISON: Comparison is made with prior study dated 02/23/2021. FINDINGS: The lungs are clear and expanded. There is no demonstrated pleural abnormality. Normal size heart. Normal mediastinum and yvonne. Normal visualized pulmonary arteries. Normal visualized aortic arch and descending thoracic aorta. Normal visualized thoracic spine. Normal visualized ribs, clavicles, and shoulders. There is no demonstrated abnormality of the visualized soft tissue structures of the upper abdomen. RAD/Chest 1 View (Portable) IMPRESSION: Normal x-ray examination of the chest. Electronically Signed: Preet Lewis MD at 10:06 EST , Service support ,
[2021-02-27 09:44] LABS: ALB/GLOB Ratio 0.8 RATIO (0.9-2.4); AST(SGOT) 43 U/L (15-37); Alanine Aminotransfer ALT/SGPT 51 U/L (13-56); Albumin, Serum 4.5 g/dL (3.2-5.0); Alkaline Phosphatase 85 U/L (45-117); Anion Gap 8 (5-15); BUN 36 mg/dL (7-18); Calcium,Total 9.7 mg/dL (8.5-10.1); Chloride 94 mmol/L (98-107); EST Glomerular Filtration Rate 30 mL/min (>60); Est Glom Filt Rate - Afr Amer 37 mL/min (>60); Estimated Creatinine Clearance 32.79 ml/min; Globulin 5.5 g/dL (2.2-4.2); Glucose 119 mg/dL (74-106); Lipase 80 U/L (73-393); Potassium 3.1 mmol/L (3.5-5.1); Sodium Level 137 mmol/L (136-145)
[2021-02-27] MEDS: 0.9% Normal Saline 1,000 ML 1000 ML IV (10:09)
[2021-02-27] MEDS: Ondansetron 4 MG/2 ML Vial IV (10:09)
[2021-02-27 12:08] LABS: Mucous, Urine 0 SEEN /hpf (<or=2+); White Blood Cells 0 SEEN /hpf (0-5)
[2021-02-27 12:09] LABS: Color, Urine Yellow (Yellow); Glucose, Dipstick Normal (Normal); Ketone-Dipstick 50 mg/dl (Negative); Leukocyte Esterase-Dipstick Negative /ul (Negative); Nitrite-Dipstick Negative (Negative); Occult Blood-Urine 25 /ul (Negative); Protein-Dipstick 100 mg/dl (Negative); Specific Gravity, Urine 1.025 (1.002-1.030); Urine Bilirubin Dipstick Negative (Negative); Urine Clarity Sl. Cloudy (Clear); Urine Urobilinogen Normal (Normal)
[2021-02-27] MEDS: 0.9% Normal Saline 1,000 ML 999 ML IV (12:16)
[2021-02-27] MEDS: Potassium Chloride Oral Tablet 20 MEQ 40 MEQ PO (12:16)
[2021-02-27] MEDS: proMETHazine 25 MG/ML Syringe 12.5 MG IV (12:16)
[2021-02-27 12:17] LABS: Bacteria 1+ /hpf (None Seen); Hyaline Cast 0-5 SEEN /lpf (0-5); Red Blood Cells-Urine 0-5 SEEN /hpf (0-5); Squamous Epithelial Cells - UA 0-5 SEEN /hpf (5-10)
--- NOTE | 2021-02-27 14:32 | NURSING ---
MED SURG SANDOVAL INTRACTABLE NAUSEA, VOMITING, DEHYDRATION, ACUTE KIDNEY INJURY
--- NOTE | 2021-02-27 14:39 | PCM.HP.STD ---
HPI - General HPI Narrative SYLVIE MERCADO, is a 35 F who presents to the hospital with nausea vomiting and diarrhea. She does have a history of cyclic vomiting and does use marijuana which has helped control the cyclic vomiting in the past. This episode started last week when she was diagnosed with Covid. She states that she was diagnosed with Covid on 03-13, and symptoms started on 02/21/2021, since then her cyclic vomiting has gotten significantly worse and because she did not feel well she was unable to smoke marijuana to try to control her cyclic vomiting. She does take medications at home to try to help control the symptoms but otherwise she states that she has been throwing up about a trash can a day and has been also having some nonbloody diarrhea. She does not generally have abdominal pain with her cyclic vomiting however she states that she has been throwing up so much that her abdominal muscles are just sore. She was seen in the ER last week and sent home at that time her renal function was normal less than 1 and now her creatinine is elevated to 2.0 she is also hypokalemic which has been replaced and she does have significant evidence of dehydration with an elevated hemoglobin to 17.2 as well as her DALE and electrolyte derangements. [facility] Medical History (Updated 02/27/21 @ 14:[address] Riley العراقي MD) Cyclic vomiting syndrome Home Medications promethazine 25 mg PO Q6H PRN PRN #10 tab 06/14/20 [Rx Last Taken Unknown] promethazine 25 mg RECTAL Q6H PRN PRN #6 suppos. 06/14/20 [Rx Last Taken Unknown] chlorpromazine 10 mg PO 4X/DAY PRN PRN #10 tablet 06/16/20 [Rx Last Taken Unknown] dicyclomine 20 mg PO TIDAC #20 capsule 06/16/20 [Rx Last Taken Unknown] ondansetron 4 mg PO Q8H PRN PRN #14 tab 02/23/21 [Rx Last Taken Unknown] promethazine [Promethegan] 25 mg AL Q6H PRN PRN #6 ea 02/27/21 [Rx Last Taken Unknown] Allergy/AdvReac Type Severity Reaction Status Date / Time Fish Containing Products Allergy Swelling Verified 02/23/21 15:36 no significant family history Surgical History (Updated 02/27/21 @ 14:[address] Riley العراقي MD) Status post cholecystectomy Social History Smoking Status: Current every day smoker tobacco type: cigarettes ROS Constitutional Constitutional: Denies chills, fatigue, fever(s) or malaise Eyes Eyes: Denies blurry vision ENT HEENT: Denies headache(s) or nasal discharge Cardiovascular Cardiovascular: Denies chest pain, dyspnea on exertion or syncope Respiratory/Chest Respiratory/Chest: Denies cough, shortness of breath at rest or shortness of breath with exertion Gastrointestinal Gastrointestinal: Reports diarrhea, nausea and vomiting; Denies constipation Genitourinary Genitourinary: Denies dysuria Neurologic Neurologic: Denies focal weakness, numbness or tremor(s) Psychiatric Psychiatric: Denies anxiety or depression Vital Signs Vital Signs Vital Signs: 02/27/21 08:15 02/27/21 08:30 02/27/21 10:10 Temperature 96.8 F L Temperature Source Temporal Pulse Rate 101 H 84 Respiratory Rate 18 16 Respiratory Effort Short of Breath Respiratory Pattern Tachypnea Blood Pressure 110/89 H 124/79 H Blood Pressure Mean 96 94 Pulse Ox 95 97 Oxygen Delivery Method Room Air Room Air 02/27/21 12:18 02/27/21 13:48 Temperature Temperature Source Pulse Rate 88 84 Respiratory Rate 17 18 Respiratory Effort Respiratory Pattern Blood Pressure 129/101 H 114/81 H Blood Pressure Mean 110 92 Pulse Ox 98 100 Oxygen Delivery Method Room Air Room Air Weight Weight: 134 lb Body Mass Index (BMI) 23.7 Physical Exam Const alert, oriented x3 and no apparent distress General Appearance: cooperative HEENT normocephalic Mouth: dry mucous membranes Eyes PERRL, EOMs intact bilaterally and conjunctivae normal Neck supple and no JVD Resp normal respiratory effort, no retractions, no use of accessory muscles and clear to auscultation bilaterally Auscultation: Negative for crackles, rales, rhonchi or wheezes Cardio regular rate, regular rhythm, S1 normal heart sound, S2 normal heart sound and no murmurs GI soft to palpation, non-tender and non-distended; Negative for hepatosplenomegaly Extremity no clubbing, cyanosis or edema Skin no rashes or lesions noted Neuro no focal motor deficits and no sensory deficits noted Psych affect normal Appearance: appropriate Results Lab / Micro Data Result Diagrams: 02/27/21 09:13 02/27/21 09:13 Labs: Laboratory Results - last 24 hr 02/27/21 09:13: WBC 9.2, RBC 5.81 H, Hgb 17.2 H, Hct 49.4 H, MCV 85.0, MCH 29.6, MCHC 34.8, RDW Std Deviation 37.4, RDW Coeff of Fabian 12.1, Plt Count 245, MPV 9.1, Immature Gran % (Auto) 0.200, Neut % (Auto) 73.8 H, Lymph % (Auto) 14.5 L, [place] % (Auto) 11.3 H, Eos % (Auto) 0.0, Baso % (Auto) 0.2, Absolute Neuts (auto) 6.8, Absolute Lymphs (auto) 1.33, Nucleated RBC % 0 02/27/21 09:13: Sodium 137, Potassium 3.1 L, Chloride 94 L, Carbon Dioxide 35.0 H, Anion Gap 8, BUN 36 H, Creatinine 2.00 H, Estim Creat Clear Calc 32.79, Est GFR (MDRD) Af Amer 37 L, Est GFR (MDRD) Non-Af 30 L, BUN/Creatinine Ratio 18.0, Glucose 119 H, Calcium 9.7, Total Bilirubin 0.30, AST 43 H, ALT 51, Alkaline Phosphatase 85, Total Protein 10.0 H, Albumin 4.5, Globulin 5.5 H, Albumin/Globulin Ratio 0.8 L, Lipase 80 02/27/21 09:13: Serum , Qual NEGATIVE 02/27/21 12:00: Urine Color Yellow, Urine Clarity Sl. Cloudy, Urine pH 5.0, Ur Specific [place] 1.025, Urine Protein 100 H, Urine Glucose (UA) Normal, Urine Ketones 50 H, Urine Occult Blood 25 H, Urine Nitrite Negative, Urine Bilirubin Negative, Urine Urobilinogen Normal, Ur Leukocyte Esterase Negative, Urine RBC 0-5 SEEN, Urine WBC 0 SEEN, Ur Squamous Epith Cells 0-5 SEEN, Urine Bacteria 1+, Hyaline Casts 0-5 SEEN, Urine Mucus 0 SEEN Radiology Impression Chest X-Ray 02/27/21 09:40 IMPRESSION: Normal x-ray examination of the chest. Electronically Signed: Preet Lewis MD at 10:06 EST , Service support , Assessment & Plan Assessment/Plan (1) Cyclic vomiting syndrome: (2) Acute hypokalemia: (3) Acute kidney injury: (4) Acute dehydration: PLAN: 1. Dehydration with hypokalemia and DALE secondary to cyclic vomiting syndrome exacerbated by COVID-19 ?She is asymptomatic from her Covid in terms of respiratory symptoms. She is not requiring any oxygen and given her creatinine will hold off on any treatments for Covid ?Continue with IV fluids and will monitor her electrolytes, she had her potassium replaced in the ER with IV ?We will check a magnesium and a phosphorus as well and replace those as necessary ?We will continue with her home antiemetics though if necessary can transition these to IV if she is unable to take p.o. however I did encourage her to attempt p.o. intake with liquids as that would be the barrier for discharge ?Quarantine ends 03/12/2021 ?Baseline creatinine is less than 1 currently at 2, will continue to monitor renal function DVT: Ambulation Charges/Coding Visit Charges OBSV E&M: 95047 Initial observation care L2
--- NOTE | 2021-02-27 15:00 | ED.RN ---
New emesis bag was given to paient when given po potassium and IV phenergan -- bag remains empty, patient is sleeping.
--- NOTE | 2021-02-27 17:02 | PCS.PANDOC ---
PANDEMIC DOCUMENTATION INITIATED: Date: 02/27/2021 Time: 7600
[2021-02-27] MEDS: Ondansetron ODT 4 MG Tablet PO (17:05)
[2021-02-27] MEDS: Dicyclomine 10 MG Capsule 20 MG PO (17:05)
[2021-02-27] MEDS: 0.9% Saline Lock 10 ML Syringe IV (17:05)
[2021-02-27] MEDS: 0.9% Normal Saline 1,000 ML 100 ML IV (17:05)
[2021-02-27 17:56] LABS: Magnesium 3.1 mg/dL (1.6-2.6); Phosphorus 4.6 mg/dL (2.5-4.9)
[2021-02-27] MEDS: proMETHazine 25 MG Tablet PO (20:08)
[2021-02-28] MEDS: 0.9% Normal Saline 1,000 ML 100 ML IV ×3 (01:05→20:20)
[2021-02-28] MEDS: Ondansetron 4 MG/2 ML Vial IV ×3 (01:05→14:11)
[2021-02-28 01:07] VITALS: BP 134/78; PULSE 81; RESP 18; TEMP 35.4; O2SAT 100
[2021-02-28 07:54] LABS: Absolute Lymphocyte Count 1.84 X10^3/uL (0.83-4.51); Absolute Neutrophil Count 4.9 X10^3/uL (2.0-7.7); Basophil# 0.02 X10^3/uL; Basophil% 0.3 % (0-1); Hematocrit 37.8 % (37-47); Hemoglobin 12.3 g/dL (12.0-15.0); Lymphocyte # 1.84 X10^3/ul (0.83-4.51); Lymphocyte % 24.1 % (19-41); Mean Corp Hgb Conc 32.5 g/dL (32-36); Mean Corpuscular Hgb 28.3 pg (27.0-32.0); Mean Corpuscular Volume 87.1 fL (81-99); Mean Platelet Vol. 8.8 fl (6.2-12.0); Monocyte# 0.87 X10^3/uL; Monocyte% 11.4 % (0-10); NRBC Flagged by Analyzer 0 % (0-5); Neutrophil % 63.9 % (47-70); POSITIVE MORPHOLOGY YES; Platelet Count 185 K/mm3 (150-450); RBC Distribution Width CV 11.9 % (11.6-14.6); RBC Distribution Width SD 38.6 fl (35.1-43.9); Red Blood Count 4.34 M/mm3 (4.2-5.4); White Blood Count 7.7 K/mm3 (4.4-11.0)
[2021-02-28 07:58] VITALS: BP 135/73; PULSE 86; RESP 18; TEMP 36.7; O2SAT 96
[2021-02-28] MEDS: 0.9% Saline Lock 10 ML Syringe IV ×2 (08:00→14:11)
[2021-02-28] MEDS: Dicyclomine 10 MG Capsule 20 MG PO ×3 (08:01→17:33)
[2021-02-28 08:09] LABS: Anion Gap 10 (5-15); BUN 15 mg/dL (7-18); BUN/Creat Ratio 16.9 RATIO (10-20); Calcium,Total 7.9 mg/dL (8.5-10.1); Chloride 107 mmol/L (98-107); Creatinine, Serum 0.89 mg/dL (0.55-1.02); EST Glomerular Filtration Rate 77 mL/min (>60); Est Glom Filt Rate - Afr Amer 93 mL/min (>60); Estimated Creatinine Clearance 73.68 ml/min; Glucose 97 mg/dL (74-106); Potassium 3.2 mmol/L (3.5-5.1); Sodium Level 144 mmol/L (136-145)
[2021-02-28 08:13] LABS: Differential Indicated SCAN CRITERIA MET
[2021-02-28 08:15] LABS: Differential Comment SCANNED; Reactive Lymphocyte 1+
--- NOTE | 2021-02-28 10:22 | CASEMGMT ---
PEDRO LUIS BANKS Assessment: Face to Face with pt for initial transition planning/care coordination assessment. PEDRO LUIS BANKS introduced self and role at [facility], pt voices understanding and consents to assessment. Pt is A/O x4 and answers all questions appropriately at this time. Pt sitting up in bed on RA in no distress. Care providers, pharmacy, and demographics verified/updated. Admitting Dx: N/V, COVID PCP:[facility] Specialists:Pt denies having any specialists. Preferred Pharmacy: [facility] Insurance: [facility] Prescription Benefit: yes LW/HPOA: Pt denies having a LW/DPOA and denies need for info regarding AD. LNOK: Jesica Strong, mother; Barb Young, sig other Living Arrangements: Pt lives with sig other and 4 kids in a two story house with 10 steps to enter with a rail. Pt reports she is I in ADL's and denies concerns at home. Transportation: Pt drives self and denies concerns with transportation. DME/HHC/SNF: Pt denies having any DME in the home, hx of HHC or SNF stays. Pt states she was first tested for COVID at the [facility]. States her sig other is negative. She is able to use separate bedroom and bathroom to quarantine from her family. She has family to provide her with groceries and supplies. Pt states no concerns with going home at time of dc. Pt states no further concerns/needs. CM to follow. Advised pt to ask CM if any further question/concerns/needs arise, voices understanding. Pt Goal: Home Plan: Home
[2021-02-28] MEDS: Potassium Chloride Oral Tablet 20 MEQ 40 MEQ PO (11:27)
[2021-02-28] MEDS: proMETHazine 25 MG Tablet PO ×2 (13:23→20:20)
[2021-02-28 14:16] VITALS: BP 101/63; PULSE 61; RESP 18; TEMP 37.6; O2SAT 100
--- NOTE | 2021-02-28 16:22 | PN.HOSP_ITS ---
Subjective Subjective Patient has had some persistent nausea and vomiting with her last emesis being just before this evaluation. She states that she gets this on and off and has a history of cyclic vomiting. She is complaining of some abdominal pain but reports it seems to be related to all the vomiting she has been doing. Objective Data Objective Data Vital Signs: Vital Signs Temp Pulse Resp BP Pulse Ox 99.7 F H 61 18 101/63 100 02/28/21 14:16 02/28/21 14:16 02/28/21 14:16 02/28/21 14:16 02/28/21 14:16 Oxygen Delivery Method Room Air Weight: 55.7 kg Body Mass Index (BMI) 21.7 Intake & Output: Intake and Output for Last 24 Hours 02/26/21 02/27/21 02/28/21 23:59 23:59 23:59 Intake Total 2099 Balance 2099 Medical Nutrition Assessment Dietitian: Malnutrition Criteria Met Start: 02/28/21 13:37 Freq: Status: Active Protocol: Document 02/28/21 13:37 AG (Rec: 02/28/21 13:37 [id number]) Nutrition Malnutrition Evidence of Malnutrition Exists Yes Malnutrition (severe): Acute Illness/Injury Evidenced By Suboptimal Energy Intake ( Severe),Weight Loss (Severe) Clinical Problem Acute Disease or Injury Related Malnutrition Etiology severe, acute malnutrition r/t inadequate energy intake d/t emesis, nausea Signs/Symptoms as evidenced by unintentional wt loss of 22.2#/15% x 1 week, estimated PO intake meeting < 50% of estimated nutritional needs x 1 week Status Active Problem Recommendation Dietitian Recommendations/Changes continue regular diet as tolerated; will add 8 oz ensure clear w/ meals Lab / Micro Data Result Diagrams: 02/28/21 07:46 02/28/21 07:46 Labs: Laboratory Results - last 24 hr 02/27/21 09:13: Phosphorus 4.6, Magnesium 3.1 H 02/28/21 06:35: WBC Cancelled, Corrected WBC Cancelled, RBC Cancelled, Hgb Cancelled, Hct Cancelled, MCV Cancelled, MCH Cancelled, MCHC Cancelled, RDW Std Deviation Cancelled, RDW Coeff of Fabian Cancelled, Plt Count Cancelled, MPV Cancelled, Immature Gran % (Auto) Cancelled, Neut % (Auto) Cancelled, Lymph % (Auto) Cancelled, [place] % (Auto) Cancelled, Eos % (Auto) Cancelled, Baso % (Auto) Cancelled, Absolute Neuts (auto) Cancelled, Absolute Lymphs (auto) Cancelled, Total Counted Cancelled, Neutrophils % (Manual) Cancelled, Band Neutrophils % Cancelled, Lymphocytes % (Manual) Cancelled, Monocytes % (Manual) Cancelled, Eosinophils % (Manual) Cancelled, Basophils % (Manual) Cancelled, Metamyelocytes % Cancelled, Myelocytes % Cancelled, Promyelocytes % Cancelled, Blast Cells % Cancelled, Plasma Cell % (Manual) Cancelled, Other Cells % Cancelled, Nucleated RBC % Cancelled, Nucleated RBCs/100 WBC Cancelled, Differential Comment Cancelled, Diff Path Review Cancelled, Hypersegmented Neuts Cancelled, Atypical Lymphocytes Cancelled, Reactive Lymphocytes Cancelled, Smudge Cells Cancelled, Toxic Granulation Cancelled, Toxic Vacuolation Cancelled, Dohle Bodies Cancelled, [place] Rods Cancelled, Platelet Estimate Cancelled, Plt Morphology Comment Cancelled, RBC Morphology Cancelled, Polychromasia Cancelled, Hypochromasia Cancelled, Poikilocytosis Cancelled, Basophilic Stippling Cancelled, Anisocytosis Cancelled, Microcytosis Cancelled, Macrocytosis Cancel led, Spherocytes Cancelled, Sickle Cells Cancelled, Target Cells Cancelled, Tear Drop Cells Cancelled, Ovalocytes Cancelled, Stomatocytes Cancelled, [place] Bodies Cancelled, Ryan Cells Cancelled, Bite Cells Cancelled, Crenated Cell Cancelled, Acanthocytes (Spur) Cancelled, Rouleaux Cancelled, Schistocytes Cancelled 02/28/21 06:35: Sodium Cancelled, Potassium Cancelled, Chloride Cancelled, Carbon Dioxide Cancelled, Anion Gap Cancelled, BUN Cancelled, Creatinine Cancel led, Estim Creat Clear Calc Cancelled, Est GFR (MDRD) Af Amer Cancelled, Est GFR (MDRD) Non-Af Cancelled, BUN/Creatinine Ratio Cancelled, Glucose Cancelled, Calcium Cancelled 02/28/21 07:46: WBC 7.7, RBC 4.34, Hgb 12.3, Hct 37.8, MCV 87.1, MCH 28.3, MCHC 32.5 D, RDW Std Deviation 38.6, RDW Coeff of Fabian 11.9, Plt Count 185, MPV 8.8, Immature Gran % (Auto) 0.300, Neut % (Auto) 63.9, Lymph % (Auto) 24.1, [place] % (Auto) 11.4 H, Eos % (Auto) 0.0, Baso % (Auto) 0.3, Absolute Neuts (auto) 4.9, Absolute Lymphs (auto) 1.84, Nucleated RBC % 0, Differential Comment SCANNED, Reactive Lymphocytes 1+ 02/28/21 07:46: Sodium 144, Potassium 3.2 L, Chloride 107, Carbon Dioxide 27.0, Anion Gap 10, BUN 15, Creatinine 0.89, Estim Creat Clear Calc 73.68, Est GFR (MDRD) Af Amer 93, Est GFR (MDRD) Non-Af 77, BUN/Creatinine Ratio 16.9, Glucose 97, Calcium 7.9 L Micro: Microbiology 02/27/21 14:41 Nasal Secretion SARS-CoV-2 Antigen (Rapid) - Final SARS-CoV-2 (COVID 19) Physical Exam Const alert and oriented x3 Constitutional Narrative: Middle-aged -[place] female lying in bed appears ill but nontoxic, no distress, complains of nausea but no current emesis Exam Limitations: no limitations HEENT head/scalp atraumatic and moist oral mucous membranes Head and Scalp: normocephalic Resp normal respiratory effort, no retractions, no use of accessory muscles and clear to auscultation bilaterally Resp Narrative: Intermittent cough Auscultation: Negative for crackles, rales, rhonchi or wheezes Cardio regular rate, regular rhythm, S1 normal heart sound, S2 normal heart sound, no murmurs, no rub, no gallops, no clicks and no JVD GI normal to inspection, nondistended, normoactive bowel sounds, soft to palpation, non-tender and non-distended Extremity no clubbing, cyanosis or edema Peripheral Pulses: Yes pulses 2+ throughout Neuro oriented x3, moves all extremities and no focal motor deficits Sensorium / Orientation: awake and alert Speech: speech normal Assessment & Plan Assessment/Plan (1) Abdominal pain: (2) COVID-19: (3) Nausea & vomiting: (4) Acute hypokalemia: (5) Acute kidney injury: (6) Acute dehydration: PLAN: Persistent nausea and vomiting -Patient with history of cyclic vomiting disorder and she feels it may be related to this -Also could be exacerbated by COVID-19 diagnosis -Continue antiemetics as ordered -Continue IV fluids -P.o. diet as able -If this persists will obtain contrasted CT of the abdomen and pelvis tomorrow -She has declined these in the past for this etiology COVID-19 infection -Nausea and vomiting may be attributed to this -No other significant signs or symptoms consistent with Covid at this time -She has had some mild temperature elevations but no true fevers with a T-max being 99.7 -She remains on room air with oxygen saturations at 96 to 100% -No Decadron or remdesivir at this time given that she is not hypoxic -Monitor clinically -Symptoms started 02/21/2021--> will need to isolate through 03/02/2021 unless developed severe Covid and requires hospitalization related to her active Covid infection with hypoxia DALE secondary to dehydration -Resolved -Creatinine 2.0 on admission and now 0.89 -Continue IV fluids until p.o. intake has improved Hypokalemia -P.o. potassium replacement if patient can tolerate -If unable to tolerate p.o. will need IV replacement -Repeat BMP in a.m. History of cyclic vomiting syndrome -See above DVT prophylaxis -Ambulation protocol -Risk is low CODE STATUS -Full code Charges/Coding Visit Charges Inpatient E&M: 65680 Subs Hosp L2
[2021-02-28] MEDS: Haloperidol Lactate 5 MG/ML Vial 2 MG IV (17:33)
[2021-02-28 19:00] VITALS: PULSE 59
[2021-02-28 20:10] VITALS: BP 126/77; PULSE 62; RESP 18; TEMP 36.4; O2SAT 99
[2021-02-28 22:58] VITALS: PULSE 63
[2021-03-01] VITALS (8 sets, daily range): BP systolic 103–136; BP diastolic 70–92; PULSE 65–98; RESP 16–18; TEMP 36.7–37.2; O2SAT 99–100
[2021-03-01] MEDS: Haloperidol Lactate 5 MG/ML Vial 2 MG IV ×5 (00:30→23:32)
[2021-03-01] MEDS: proMETHazine 25 MG Tablet PO (02:51)
[2021-03-01] MEDS: Dicyclomine 10 MG Capsule 20 MG PO ×3 (06:45→17:18)
[2021-03-01] MEDS: 0.9% Normal Saline 1,000 ML 100 ML IV (06:48)
[2021-03-01 08:26] LABS: Anion Gap 5 (5-15); BUN 6 mg/dL (7-18); BUN/Creat Ratio 6.6 RATIO (10-20); Calcium,Total 8.4 mg/dL (8.5-10.1); Chloride 111 mmol/L (98-107); EST Glomerular Filtration Rate 76 mL/min (>60); Est Glom Filt Rate - Afr Amer 91 mL/min (>60); Estimated Creatinine Clearance 72.86 ml/min; Glucose 131 mg/dL (74-106); Phosphorus 1.7 mg/dL (2.5-4.9); Potassium 3.7 mmol/L (3.5-5.1); Sodium Level 144 mmol/L (136-145)
--- NOTE | 2021-03-01 11:09 | PCM.PN.HOSP ---
Subjective Subjective Patient still having emesis through the night. Last emesis was just before shift change of approximately 150 cc of fluid. The patient tells me she is able to eat some fruit here and there but it sounds as if she is having emesis shortly thereafter. I am still concerned that she may not be able to get enough oral intake to maintain hydration. She states that she is overall feeling better and that the Haldol has helped. Objective Data Objective Data Vital Signs: Vital Signs Temp Pulse Resp BP Pulse Ox 98.0 F 68 16 127/82 H 100 03/01/21 10:00 03/01/21 10:00 03/01/21 10:00 03/01/21 10:00 03/01/21 10:00 Oxygen Delivery Method Room Air Weight: 55.7 kg Body Mass Index (BMI) 21.7 Intake & Output: Intake and Output for Last 24 Hours 02/27/21 02/28/21 03/01/21 23:59 23:59 23:59 Intake Total 2099 2930 / 2930 2199 / 2199 Output Total 150 / 150 Balance 2099 2930 / 2930 2049 Medical Nutrition Assessment Dietitian: Malnutrition Criteria Met Start: 02/28/21 13:37 Freq: Status: Active Protocol: Document 02/28/21 13:37 AG (Rec: 02/28/21 13:37 AG [id number]) Nutrition Malnutrition Evidence of Malnutrition Exists Yes Malnutrition (severe): Acute Illness/Injury Evidenced By Suboptimal Energy Intake ( Severe),Weight Loss (Severe) Clinical Problem Acute Disease or Injury Related Malnutrition Etiology severe, acute malnutrition r/t inadequate energy intake d/t emesis, nausea Signs/Symptoms as evidenced by unintentional wt loss of 22.2#/15% x 1 week, estimated PO intake meeting < 50% of estimated nutritional needs x 1 week Status Active Problem Recommendation Dietitian Recommendations/Changes continue regular diet as tolerated; will add 8 oz ensure clear w/ meals Lab / Micro Data Result Diagrams: 02/28/21 07:46 03/01/21 06:45 Labs: Laboratory Results - last 24 hr 03/01/21 06:45: Sodium 144, Potassium 3.7, Chloride 111 H, Carbon Dioxide 28.0, Anion Gap 5, BUN 6 L, Creatinine 0.90, Estim Creat Clear Calc 72.86, Est GFR (MDRD) Af Amer 91, Est GFR (MDRD) Non-Af 76, BUN/Creatinine Ratio 6.6 L, Glucose 131 H, Calcium 8.4 L, Phosphorus 1.7 L, Magnesium 2.0 Micro: Microbiology 02/27/21 14:41 Nasal Secretion SARS-CoV-2 Antigen (Rapid) - Final SARS-CoV-2 (COVID 19) Physical Exam Const alert, oriented x3 and no apparent distress Constitutional Narrative: Middle-aged -[place] female lying in bed appears as if she is feeling better but not baseline, nontoxic, no distress, complains of nausea but no current emesis General Appearance: cooperative Exam Limitations: no limitations HEENT normocephalic, head/scalp atraumatic and moist oral mucous membranes Head and Scalp: normocephalic Resp normal respiratory effort, no retractions, no use of accessory muscles and clear to auscultation bilaterally Resp Narrative: Intermittent cough Auscultation: Negative for crackles, rales, rhonchi or wheezes Cardio regular rate, regular rhythm, S1 normal heart sound, S2 normal heart sound, no murmurs, no rub, no gallops, no clicks and no JVD GI normal to inspection, nondistended, normoactive bowel sounds, soft to palpation, non-tender and non-distended; Negative for hepatosplenomegaly GI Narrative: Much less tenderness in her abdomen today Extremity no clubbing, cyanosis or edema Peripheral Pulses: Yes pulses 2+ throughout Neuro oriented x3, moves all extremities and no focal motor deficits Sensorium / Orientation: awake and alert Speech: speech normal Psych Appearance: appropriate Assessment & Plan Assessment/Plan (1) Abdominal pain: (2) COVID-19: (3) Nausea & vomiting: (4) Acute hypokalemia: (5) Acute kidney injury: (6) Acute dehydration: PLAN: Persistent nausea and vomiting -Patient with history of cyclic vomiting disorder and she feels it may be related to this -Also could be exacerbated by COVID-19 diagnosis -Continue antiemetics as ordered -Continue IV fluids but change to LR and reduce rate to 75 cc/h from 100 -P.o. diet as able -Abdominal pain has improved we will therefore defer CT of the abdomen and pelvis at this time -No intake is improving and hopefully will continue to improve the next 24 hours -Patient has responded favorably to scheduled IV Haldol COVID-19 infection -Nausea and vomiting may be attributed to this -No other significant signs or symptoms consistent with Covid at this time -She has had some mild temperature elevations but no true fevers with a T-max being 99.7 -She remains on room air with oxygen saturations at 99 to 100% -No Decadron or remdesivir at this time given that she is not hypoxic -Monitor clinically -Symptoms started 02/21/2021--> will need to isolate through 03/02/2021 unless developed severe Covid and requires hospitalization related to her active Covid infection with hypoxia Hypokalemia -Resolved History of cyclic vomiting syndrome -See above DVT prophylaxis -Ambulation protocol -Risk is low CODE STATUS -Full code Charges/Coding Visit Charges Inpatient E&M: 15725 Subs Hosp L2
[2021-03-01] MEDS: Lactated Ringers 1,000 ML 75 ML IV (11:55)
[2021-03-02 00:36] VITALS: BP 129/75; PULSE 62; RESP 18; TEMP 37.2; O2SAT 100
[2021-03-02 03:00] VITALS: PULSE 62
[2021-03-02] MEDS: Haloperidol Lactate 5 MG/ML Vial 2 MG IV (06:11)
[2021-03-02] MEDS: Lactated Ringers 1,000 ML 75 ML IV (06:11)
[2021-03-02] MEDS: Dicyclomine 10 MG Capsule 20 MG PO ×2 (06:11→10:09)
[2021-03-02 06:13] VITALS: BP 123/72; PULSE 62; RESP 18; TEMP 36.8; O2SAT 100
[2021-03-02 07:37] LABS: Anion Gap 7 (5-15); BUN 7 mg/dL (7-18); BUN/Creat Ratio 9.9 RATIO (10-20); Calcium,Total 8.4 mg/dL (8.5-10.1); Chloride 107 mmol/L (98-107); Creatinine, Serum 0.71 mg/dL (0.55-1.02); EST Glomerular Filtration Rate 100 mL/min (>60); Est Glom Filt Rate - Afr Amer 121 mL/min (>60); Estimated Creatinine Clearance 92.36 ml/min; Glucose 96 mg/dL (74-106); Potassium 3.5 mmol/L (3.5-5.1); Sodium Level 141 mmol/L (136-145)
[2021-03-02 10:10] VITALS: BP 141/90; PULSE 73; RESP 18; TEMP 36.2; O2SAT 100
[2021-03-02 10:35] VITALS: O2SAT 100
--- NOTE | 2021-03-02 11:01 | DS.PCM_ITS ---
Providers Date of Admission: 02/27/21 Primary Care Physician: Dr. Sergio Grover, DO Reason For Visit: N/V COVID Diagnosis Discharge Diagnosis (1) COVID-19: Status: Acute Code(s): U07.1 - COVID-19 (2) Nausea & vomiting: Status: Acute Code(s): R11.2 - Nausea with vomiting, unspecified Medications at Discharge Home Medications promethazine 25 mg PO Q6H PRN PRN #10 tab 06/14/20 dicyclomine 20 mg PO TIDAC #20 capsule 06/16/20 ondansetron 4 mg PO Q8H PRN PRN #14 tab 02/23/21 haloperidol 2 mg PO Q8H PRN #12 tab 03/02/21 Hospital Course Operations None Procedures None Summary of Care Provided Minutes Spent on Discharge: 33 Hospital Course: Fadia Pineda is a 35-year-old female who presented to emergency department [facility] on 02/27/2021 with intractable nausea vomiting and diarrhea. She has a known history of cyclic vomiting syndrome and utilizes marijuana which she reported helps control her cyclic vomiting in the past. She report this current episode started approximately week ago when she was diagnosed with COVID-19. She reported that her symptoms started on 02/21/2021 and tested positive after. She reported that her vomiting had gotten significantly worse since that point time and on admission she was throwing up massive amounts without the ability to maintain hydration. Her labs were overall were unimpressive on admission other than her serum creatinine was markedly elevated from baseline at 2.0. It appears her baseline is 0.9-1. She was treated with antiemetics and aggressive hydration. Within 24 hours of admis maame her serum creatinine improved to baseline. Unfortunately, she had continued nausea and vomiting for which we continued IV fluids and I did put her on some scheduled Haldol for nausea and vomiting. By the a.m. of 03/02/2021 she was tolerating p.o. food and liquids without difficulty and anxious to go home. She reported she was feeling much better and close to baseline. During her hospitalization she never required supplemental oxygen. Oxygen saturations were 98 to 100% on room air on the day of discharge. She is to complete 10 days of quarantine which ends today. We did give her a prescription for oral Haldol 12 tablets every 8 hours as needed for nausea if she has any breakthrough symptoms. She was discharged home on 03/02/2021 in stable condition. Discharge diagnoses: Intractable nausea and vomiting-resolved COVID-19 infection Hypokalemia-resolved History of cyclic vomiting syndrome Tobacco abuse THC use Physical Exam Const alert, oriented x3 and no apparent distress Constitutional Narrative: Middle-aged -Citizen Of [place] female lying in bed appe ars as if she is feeling better but not baseline, nontoxic, no distress, complains of nausea but no current emesis General Appearance: cooperative, comfortable, well kempt and well developed Orientation / Consciousness: awake Exam Limitations: no limitations HEENT normocephalic, head/scalp atraumatic, hearing grossly normal bilaterally and moist oral mucous membranes Eyes PERRL, EOMs intact bilaterally and conjunctivae normal Neck no lymphadenopathy, supple and no JVD Resp normal respiratory effort, no retractions, no use of accessory muscles and clear to auscultation bilaterally Resp Narrative: Intermittent cough Auscultation: Negative for crackles, rales, rhonchi or wheezes Cardio regular rate, regular rhythm, S1 normal heart sound, S2 normal heart sound, no murmurs, no rub, no gallops, no clicks and no JVD GI normal to inspection, nondistended, normoactive bowel sounds, soft to palpation, non-tender and non-distended; Negative for hepatosplenomegaly GI Narrative: Much less tenderness in her abdomen today Extremity no clubbing, cyanosis or edema Skin no rashes or lesions noted Neuro oriented x3, moves all extremities and no focal motor deficits Sensorium / Orientation: awake and alert Speech: speech normal Psych affect normal Appearance: appropriate Medical Records Data Medical Nutrition Assessment Dietitian: Malnutrition Criteria Met Start: 02/28/21 13:37 Freq: Status: Active Protocol: Document 02/28/21 13:37 AG (Rec: 02/28/21 13:37 [id number]) Nutrition Malnutrition Evidence of Malnutrition Exists Yes Malnutrition (severe): Acute Illness/Injury Evidenced By Suboptimal Energy Intake ( Severe),Weight Loss (Severe) Clinical Problem Acute Disease or Injury Related Malnutrition Etiology severe, acute malnutrition r/t inadequate energy intake d/t emesis, nausea Signs/Symptoms as evidenced by unintentional wt loss of 22.2#/15% x 1 week, estimated PO intake meeting < 50% of estimated nutritional needs x 1 week Status Active Problem Recommendation Dietitian Recommendations/Changes continue regular diet as tolerated; will add 8 oz ensure clear w/ meals Weight / BMI Weight Weight: 55.7 kg Body Mass Index (BMI) 21.7 ABG / Lab / Microbiology Data Result Diagrams: 02/28/21 07:46 03/02/21 06:25 Laboratory: Laboratory Results - last 24 hr 03/02/21 06:25: Sodium 141, Potassium 3.5, Chloride 107, Carbon Dioxide 27.0, Anion Gap 7, BUN 7, Creatinine 0.71, Estim Creat Clear Calc 92.36, Est GFR (MDRD) Af Amer 121, Est GFR (MDRD) Non-Af 100, BUN/Creatinine Ratio 9.9 L, Glucose 96, Calcium 8.4 L Microbiology: Microbiology 02/27/21 14:41 Nasal Secretion SARS-CoV-2 Antigen (Rapid) - Final SARS-CoV-2 (COVID 19) D/C Instructions Discharge Diet: No restrictions Discharge Activity: Return to Normal Activity Meaningful Use Info Meaningful Use Diagnoses (Choose all that apply): None applicable Discharge Plan Admission Admit Date/Time: 02/27/21 14:26 Primary Reason for Your Visit: Intractable nausea and vomiting Attending Provider: Leonor Gupta Primary Care Provider: Sergio Grover Instructions Additional Instructions / Restrictions: 1. Please quarantine until 03/03/2021 Discharge Orders/Prescriptions Prescriptions: New haloperidol 2 mg tablet 2 mg PO Q8H PRN (Reason: nausea and vomiting) Qty: 12 RF: 0 Continued promethazine 25 MG tablet 25 mg PO Q6H PRN PRN (Reason: Nausea) Qty: 10 RF: 0 dicyclomine 10 MG capsule 20 mg PO TIDAC Qty: 20 RF: 0 ondansetron 4 mg tablet,disintegrating 4 mg PO Q8H PRN PRN (Reason: Nausea) Qty: 14 RF: 0 Referrals / Follow Up: Sergio Grover DO [Primary Care Provider] - Within 2 Weeks Disposition Disposition (needs filled in before D/C Order can be placed): Home, Self Care Charges/Coding Visit Charges Inpatient E&M: 13080 Disch Hosp
[2021-03-02 11:21] VITALS: BP 141/90; PULSE 73; RESP 18; TEMP 36.2; O2SAT 100
== END 2021-03-02 11:34 | disposition home or self-care (01) ==
LOC: ED 14:14 → MS3 14:49
PROVIDERS: Admitting Provider Family Medicine; Emergency Provider Emergency Medicine; PCP Student in an Organized Health Care Education/Training Program; Visit Provider Internal Medicine
DX: U07.1 COVID-19 (principal); G24.09 Other drug induced dystonia; T43.4X5A Adverse effect of butyrophenone and thiothixene neuroleptics, initial encounter; F17.210 Nicotine dependence, cigarettes, uncomplicated; K58.9 Irritable bowel syndrome, unspecified; R11.15 Cyclical vomiting syndrome unrelated to migraine; Z79.899 Other long term (current) drug therapy; E87.6 Hypokalemia; N17.9 Acute kidney failure, unspecified; E86.0 Dehydration
CPT/HCPCS: 36415; 71045; 80048; 80053; 81001; 83690; 83735; 84100; 84703; 85025; 87426; 96361; 96374; 96375; 96376; 97802; 99218; 99283; 99284; J7030; J7120; A4216; G0378; J2405

== ENCOUNTER 2021-03-02 12:38 | Emergency (ER) | payer MEDICAID, SELFPAY ==
[2021-03-02 12:39] VITALS: BP 129/80; PULSE 85; RESP 18; TEMP 36.8; O2SAT 100; BMI 23.0
--- NOTE | 2021-03-02 13:26 | ED.RN ---
PT STATES TONGUE IS SWOLLEN AND SHE CANNOT MOVE IT. PT'S TONGUE HAS NORMAL APPEARANCE AND ABLE TO MOVE TONGUE AT THIS TIME. PT IN NO DISTRESS AT THIS TIME VITALS SIGNS FOLLOWS HR 71 SPO2 100% RESPIRATIONS 17. SIGNIFICANT OTHER UPSET DEMANDING TO TALK TO HOSPITALIST STAT. EXPLAINED TO PT AND S/O THAT THEY WILL BE SEEN BY ER PHYSICIAN.
--- NOTE | 2021-03-02 13:48 | EX.ED.DYSGE1 ---
HPI History of Present Illness Chief Complaint: Numb/Ting Narrative Narrative: 35-year-old female with history of cyclic vomiting syndrome presenting today with difficulty using her tongue. She states she was recently hospitalized for COVID-19 and cyclic vomiting. She had done well in the hospital with Haldol and was discharged home with Tylenol as well as Phenergan and Zofran. She states that this morning she noted that her tongue was difficult to move. She is having trouble speaking. She did not have any problems swallowing or breathing. Her vomiting has not been an issue this morning. No fever or chills. PFSH PFSH Medical History Cyclic vomiting syndrome Marijuana smoker, episodic Home Medications promethazine 25 mg PO Q6H PRN PRN #10 tab 06/14/20 [Rx Last Taken 02/27/21] dicyclomine 20 mg PO TIDAC #20 capsule 06/16/20 [Rx Last Taken 02/26/21] ondansetron 4 mg PO Q8H PRN PRN #14 tab 02/23/21 [Rx Last Taken 02/26/21] diphenhydramine HCl [Benadryl] 25 mg PO QHS PRN #20 cap 03/02/21 [Rx Last Taken Unknown] haloperidol 2 mg PO Q8H PRN #12 tab 03/02/21 [Rx Last Taken Unknown] Allergy/AdvReac Type Severity Reaction Status Date / Time Fish Containing Products Allergy Swelling Verified 03/02/21 12:41 haloperidol [From Haldol] AdvReac Other Verified 03/02/21 14:35 Surgical History Status post cholecystectomy Social History Smoking Status: Current every day smoker tobacco type: cigarettes ROS ROS ED Constitutional Constitutional ED: Denies chills or fever(s) Eyes Eyes: Denies blurry vision or diplopia ENT ENT ED: Reports other; Denies rhinorrhea or sore throat Cardiovascular Cardiovascular: Denies chest pain or palpitations Respiratory/Chest Respiratory/Chest: Denies cough or dyspnea Gastrointestinal Gastrointestinal: Reports nausea Genitourinary Genitourinary ED: Denies dysuria or hematuria Musculoskeletal Musculoskeletal: Denies arthralgias or myalgias Integumentary Denies abscess or rash Neurologic Neurologic: Denies headache(s) Psychiatric Psychiatric: Denies anxiety or depression EXAM Physical Exam Const Vital Signs: 03/02/21 12:39 03/02/21 13:17 Temperature 98.2 F Temperature Source Temporal Pulse Rate 85 Respiratory Rate 18 Respiratory Effort Non-Labored Blood Pressure 129/80 H Blood Pressure Mean 96 Pulse Ox 100 Oxygen Delivery Method Room Air Positive well nourished General Appearance ED: NAD; Negative for pallor HEENT Reports moist mucous membranes Negative for trauma Eyes PERRL and EOMs intact bilaterally Chest Wall inspection of chest normal and palpation of chest normal Resp normal respiratory effort and clear to auscultation bilaterally Cardio regular rate and regular rhythm Extremity normal to inspection Neuro oriented x3 Sensorium / Orientation: alert Psych mental status grossly normal Skin General Skin Exam: Negative for jaundice or pallor MDM MDM MDM Narrative Medical decision making narrative: On my initial exam patient is talking to me clearly. Her tongue looks normal. She has no difficulty swallowing or breathing. There is no swelling sublingually or otherwise. On arrival of her significant other she started to have difficulty talking and states that her tongue that is the issue. I believe this is a side effect of the Haldol that she has been sent home on and had been using in the hospital. She will be given a dose of Cogentin and reevaluated. This does not appear to be stroke and there is no involvement anywhere else. Patient has no risk factors for stroke. Patient she states she is not currently nauseous. Patient is given 2 mg of Cogentin. Her dystonic reaction has resolved. I will discharge her home with Benadryl as needed. She has Phenergan and Zofran at home. She is discharged in stable condition. Impression: 1. Dystonic reaction Discharge Plan Triage Chief Complaint: Numb/Ting ED Provider: Luis Fernando Yuan Dx/Rx/DC Orders Instructions: ED Medicine Reaction, Dystonic Prescriptions: New diphenhydramine HCl [Benadryl] 25 mg capsule 25 mg PO QHS PRN (Reason: allergy symptoms) Qty: 20 RF: 0 No Action promethazine 25 MG tablet 25 mg PO Q6H PRN PRN (Reason: Nausea) Qty: 10 RF: 0 dicyclomine 10 MG capsule 20 mg PO TIDAC Qty: 20 RF: 0 ondansetron 4 mg tablet,disintegrating 4 mg PO Q8H PRN PRN (Reason: Nausea) Qty: 14 RF: 0 haloperidol 2 mg tablet 2 mg PO Q8H PRN (Reason: nausea and vomiting) Qty: 12 RF: 0 Primary Care Provider: Sergio Grover Referrals: Sergio Grover DO [Primary Care Provider] - Disposition Disposition: Home, Self Care
[2021-03-02 15:07] VITALS: PULSE 65; RESP 18; O2SAT 100
== END 2021-03-02 15:08 | disposition home or self-care (01) ==
PROVIDERS: Emergency Provider Student in an Organized Health Care Education/Training Program; PCP Student in an Organized Health Care Education/Training Program
DX: G24.09 Other drug induced dystonia (principal); T43.4X5A Adverse effect of butyrophenone and thiothixene neuroleptics, initial encounter; F17.210 Nicotine dependence, cigarettes, uncomplicated
CPT/HCPCS: 96374; 99283; A4216

== ENCOUNTER 2021-06-26 14:07 | Inpatient (IN) | payer MEDICAID, SELFPAY ==
[2021-06-26 14:08] VITALS: BP 139/82; PULSE 105; RESP 20; TEMP 36.1; O2SAT 94; BMI 23.7
--- NOTE | 2021-06-26 14:24 | EDS_ITS ---
HPI History of Present Illness Chief Complaint: Nausea/Vomiting Informant: patient Onset/Context/Timing Onset: Yesterday Current Severity: Moderate Maximum Severity: Moderate Narrative Narrative: Patient presents secondary to nausea and vomiting along with diarrhea. No fever or chills. She states her fianc? just got over similar illness. She complains of spasms and cramping in her chest abdominal muscles from vomiting. No prior abdominal surgeries. PFSH PFSH Medical History COVID-19 Cyclic vomiting syndrome Marijuana smoker, episodic Home Medications promethazine 25 mg PO Q6H PRN PRN #10 tab 06/14/20 [Rx Last Taken 02/27/21] ondansetron 4 mg PO Q8H PRN PRN #14 tab 02/23/21 [Rx Last Taken 02/26/21] Allergy/AdvReac Type Severity Reaction Status Date / Time Fish Containing Products Allergy Swelling Verified 03/02/21 12:41 haloperidol [From Haldol] AdvReac Other Verified 03/02/21 14:35 Surgical History Status post cholecystectomy Social History Smoking Status: Former smoker ROS ROS ED Constitutional Constitutional ED: Denies chills or fever(s) Eyes Eyes: Denies change in vision ENT ENT ED: Denies sore throat Cardiovascular Cardiovascular: Reports other Details: Spasms in chest wall muscles ; Denies chest pain Respiratory/Chest Respiratory/Chest: Denies cough or dyspnea Gastrointestinal Gastrointestinal: Reports abdominal pain, diarrhea, nausea and vomiting Genitourinary Genitourinary ED: Denies dysuria Musculoskeletal Musculoskeletal: Denies back pain Integumentary Denies rash Neurologic Neurologic: Denies headache(s) or weakness Allergic/Immunologic Allergic/Immunologic ED: Denies urticaria EXAM Physical Exam Const Vital Signs: 06/26/21 14:08 06/26/21 16:57 Temperature 96.9 F L 98.2 F Temperature Source Temporal Oral Pulse Rate 105 H 61 Respiratory Rate 20 H 16 Blood Pressure 139/82 H 141/87 H Blood Pressure Mean 101 105 Pulse Ox 94 100 Oxygen Delivery Method Room Air Room Air Positive well nourished and well developed General Appearance ED: well developed Eyes PERRL and EOMs intact bilaterally Neck supple Chest Wall inspection of chest normal and palpation of chest normal Resp normal respiratory effort and clear to auscultation bilaterally Cardio regular rate and regular rhythm GI Palpation: tender other (Mild diffuse tenderness palpation. No guarding or rebound.) Extremity normal to inspection Neuro oriented x3 Sensorium / Orientation: alert Psych mental status grossly normal Skin no rashes or lesions noted MDM MDM MDM Narrative Medical decision making narrative: Patient is initially given morphine, Zofran, IV fluids. She developed some mild hives and was given a dose of Benadryl. She was given Protonix for acid reflux. Lab work obtained. Lab Data Attestation: I reviewed the patient's lab results. Labs: Laboratory Results - last 24 hr 06/26/21 06/26/21 06/26/21 14:33 14:33 14:33 WBC 11.5 H RBC 4.85 Hgb 13.8 Hct 41.2 MCV 84.9 MCH 28.5 MCHC 33.5 RDW Std Deviation 36.8 RDW Coeff of Fabian 11.9 Plt Count 253 MPV 8.9 Immature Gran % (Auto) 0.300 Neut % (Auto) 93.1 H Lymph % (Auto) 5.3 L [place] % (Auto) 1.1 Eos % (Auto) 0.0 Baso % (Auto) 0.2 Absolute Neuts (auto) 10.7 H Absolute Lymphs (auto) 0.61 L Nucleated RBC % 0 Sodium 139 Potassium 3.7 Chloride 108 H Carbon Dioxide 23.0 Anion Gap 8 BUN 11 Creatinine 1.10 H Estim Creat Clear Calc 59.61 Est GFR (MDRD) Af Amer 73 Est GFR (MDRD) Non-Af 60 BUN/Creatinine Ratio 10.0 Glucose 156 H Calcium 9.9 Total Bilirubin 0.40 Direct Bilirubin 0.13 AST 15 ALT 29 Alkaline Phosphatase 67 Total Protein 8.8 H Albumin 4.8 Globulin 4.0 Lipase 42 L Serum , Qual NEGATIVE Treatment and Re-Evaluation Narrative: Lab work is largely unremarkable. Patient initially felt improved after treatment. She was given ice chips but was unable to keep that down and developed recurrent vomiting. She was then given IM Phenergan. Again on repeat evaluation she felt improved but unable to tolerate even ice chips. At this time will speak with hospitalist for observation and trial of p.o. tolerance. Discharge Plan Triage Chief Complaint: Nausea/Vomiting ED Provider: Nikki Hollingsworth Dx/Rx/DC Orders Clinical Impression: Intractable vomiting Prescriptions: No Action promethazine 25 MG tablet 25 mg PO Q6H PRN PRN (Reason: Nausea) Qty: 10 RF: 0 ondansetron 4 mg tablet,disintegrating 4 mg PO Q8H PRN PRN (Reason: Nausea) Qty: 14 RF: 0 Primary Care Provider: Sergio Grover Referrals: Sergio Grover DO [Primary Care Provider] - Disposition Disposition: Acute Care [facility]
[2021-06-26] MEDS: Morphine 4 MG/ML Syringe IV (14:56)
[2021-06-26] MEDS: 0.9% Normal Saline 1,000 ML 1000 ML IV (14:56)
[2021-06-26] MEDS: Ondansetron 4 MG/2 ML Vial IV ×2 (14:56→21:30)
[2021-06-26 15:00] LABS: Absolute Lymphocyte Count 0.61 X10^3/uL (0.83-4.51); Absolute Neutrophil Count 10.7 X10^3/uL (2.0-7.7); Basophil# 0.02 X10^3/uL; Basophil% 0.2 % (0-1); Hematocrit 41.2 % (37-47); Hemoglobin 13.8 g/dL (12.0-15.0); Lymphocyte # 0.61 X10^3/ul (0.83-4.51); Lymphocyte % 5.3 % (19-41); Mean Corp Hgb Conc 33.5 g/dL (32-36); Mean Corpuscular Hgb 28.5 pg (27.0-32.0); Mean Corpuscular Volume 84.9 fL (81-99); Mean Platelet Vol. 8.9 fl (6.2-12.0); Monocyte# 0.13 X10^3/uL; Monocyte% 1.1 % (0-10); NRBC Flagged by Analyzer 0 % (0-5); Neutrophil # 10.73 X10^3/uL (2.7-7.7); Neutrophil % 93.1 % (47-70); Platelet Count 253 K/mm3 (150-450); RBC Distribution Width CV 11.9 % (11.6-14.6); RBC Distribution Width SD 36.8 fl (35.1-43.9); Red Blood Count 4.85 M/mm3 (4.2-5.4); White Blood Count 11.5 K/mm3 (4.4-11.0)
[2021-06-26 15:15] LABS: AST(SGOT) 15 U/L (15-37); Alanine Aminotransfer ALT/SGPT 29 U/L (13-56); Albumin, Serum 4.8 g/dL (3.2-5.0); Alkaline Phosphatase 67 U/L (45-117); Anion Gap 8 (5-15); BUN 11 mg/dL (7-18); Bilirubin, Direct 0.13 mg/dL (0.00-0.30); Calcium,Total 9.9 mg/dL (8.5-10.1); Chloride 108 mmol/L (98-107); EST Glomerular Filtration Rate 60 mL/min (>60); Est Glom Filt Rate - Afr Amer 73 mL/min (>60); Estimated Creatinine Clearance 59.61 ml/min; Glucose 156 mg/dL (74-106); Lipase 42 U/L (73-393); Potassium 3.7 mmol/L (3.5-5.1); Protein, Total 8.8 g/dL (6.4-8.2); Sodium Level 139 mmol/L (136-145)
[2021-06-26] MEDS: DiphenhydrAMINE 50 MG/ML Syringe 25 MG IV (15:16)
[2021-06-26 15:26] LABS: Internal QC Validated? YES +Cl - CLEAR BKGD; Pregnancy, Serum, hCG Quali. NEGATIVE Negative
[2021-06-26 16:57] VITALS: BP 141/87; PULSE 61; RESP 16; TEMP 36.8; O2SAT 100
[2021-06-26] MEDS: proMETHazine 25 MG/ML Syringe IM (17:08)
--- NOTE | 2021-06-26 19:28 | HP.PCM_ITS ---
Documented by User: JORGE Garcia 06/26/21 19:43 HPI - General General Date of Admission: 06/26/21 Date of Service: 06/26/21 Chief Complaint: Nausea, vomiting, and diarrhea HPI Narrative SYLVIE MERCADO, is a 35 F who presents with complaints of nausea vomiting and diarrhea x1 day. Patient states that her boyfriend recently had similar symptoms but has since improved. Patient has a history of cyclical vomiting syndrome syndrome secondary to marijuana use. Patient reports that she continues to use marijuana and smokes approximately 3 times a day. Patient received multiple doses of Phenergan both p.o. and IM as well as Benadryl and Zofran in the ER without improvement of symptoms. [facility] [place] Medical History COVID-19 Cyclic vomiting syndrome Marijuana smoker, episodic Home Medications promethazine 25 mg PO Q6H PRN PRN #10 tab 06/14/20 [Rx Last Taken 02/27/21] ondansetron 4 mg PO Q8H PRN PRN #14 tab 02/23/21 [Rx Last Taken 02/26/21] Allergy/AdvReac Type Severity Reaction Status Date / Time Fish Containing Products Allergy Swelling Verified 03/02/21 12:41 haloperidol [From Haldol] AdvReac Other Verified 03/02/21 14:35 Family History (Updated 06/26/21 @ 19:37 by JORGE Garcia) Mother Hypertension Hyperlipidemia Father Hypertension Hyperlipidemia Surgical History Status post cholecystectomy Social History (Updated 06/26/21 @ 19:33 by DAVIS GarciaC) Smoking Status: Former smoker substance use type: marijuana ROS Constitutional Constitutional: Reports malaise; Denies anorexia, chills, fatigue, fever(s) or weakness Cardiovascular Cardiovascular: Denies chest pain, edema, palpitations or syncope Respiratory/Chest Respiratory/Chest: Denies cough, shortness of breath at rest, shortness of breath with exertion or wheezing Gastrointestinal Gastrointestinal: Reports cramping, diarrhea, nausea and vomiting Genitourinary Genitourinary: Denies dysuria Musculoskeletal Musculoskeletal: Denies back pain, extremity pain or joint pain Integumentary Integumentary: Denies dry skin Neurologic Neurologic: Denies abnormal gait, abnormal speech, confusion, dizziness or focal weakness Psychiatric Psychiatric: Denies anxiety or depression Endocrine Endocrinology: Denies change in body appearance Hematologic/Lymphatic Hematologic/Lymphatic: Denies anemia Vital Signs Vital Signs Vital Signs: 06/26/21 14:08 06/26/21 16:57 Temperature 96.9 F L 98.2 F Temperature Source Temporal Oral Pulse Rate 105 H 61 Respiratory Rate 20 H 16 Blood Pressure 139/82 H 141/87 H Blood Pressure Mean 101 105 Pulse Ox 94 100 Oxygen Delivery Method Room Air Room Air Weight Weight: 134 lb Body Mass Index (BMI) 23.7 Physical Exam Const alert and oriented x3 General Appearance: cooperative HEENT normocephalic and head/scalp atraumatic Eyes conjunctivae normal and no scleral icterus Neck supple General: trachea midline Resp normal respiratory effort, normal air movement and clear to auscultation bilaterally Cardio regular rate, regular rhythm, S1 normal heart sound and S2 normal heart sound GI non-tender Auscultation: hyperactive bowel sounds Extremity normal capillary refill and no clubbing, cyanosis or edema Skin General Skin Exam: no breakdown and turgor normal Lesions: no lesions Rashes: no rashes Neuro no focal motor deficits and no sensory deficits noted Speech: speech normal Motor Exam: Negative for general weakness Psych Mood & Affect: tearful Results Lab / Micro Data Result Diagrams: 06/26/21 14:33 06/26/21 14:33 Labs: Laboratory Results - last 24 hr 06/26/21 14:33: WBC 11.5 H, RBC 4.85, Hgb 13.8, Hct 41.2, MCV 84.9, MCH 28.5, MCHC 33.5, RDW Std Deviation 36.8, RDW Coeff of Fabian 11.9, Plt Count 253, MPV 8.9, Immature Gran % (Auto) 0.300, Neut % (Auto) 93.1 H, Lymph % (Auto) 5.3 L, [place] % (Auto) 1.1, Eos % (Auto) 0.0, Baso % (Auto) 0.2, Absolute Neuts (auto) 10.7 H, Absolute Lymphs (auto) 0.61 L, Nucleated RBC % 0 06/26/21 14:33: Sodium 139, Potassium 3.7, Chloride 108 H, Carbon Dioxide 23.0, Anion Gap 8, BUN 11, Creatinine 1.10 H, Estim Creat Clear Calc 59.61, Est GFR (MDRD) Af Amer 73, Est GFR (MDRD) Non-Af 60, BUN/Creatinine Ratio 10.0, Glucose 156 H, Calcium 9.9, Total Bilirubin 0.40, Direct Bilirubin 0.13, AST 15, ALT 29, Alkaline Phosphatase 67, Total Protein 8.8 H, Albumin 4.8, Globulin 4.0, Lipase 42 L 06/26/21 14:33: Serum , Qual NEGATIVE Assessment & Plan Assessment/Plan (1) Gastroenteritis due to norovirus: PLAN: 1. Gastroenteritis due to norovirus -Admit to [facility] for observation -Clear liquid diet -C. difficile and enteric pathogen panel ordered -CBC, CMP ordered -Urine drug screen ordered due to patient's history of cyclical vomiting with marijuana use and reports that she continues to use marijuana -Zofran, Phenergan, Haldol ordered as needed for vomiting -IV normal saline 125 mL/h -IV Pepcid twice daily -White blood cell count mildly elevated 11.5, creatinine mildly elevated at 1.10, glucose 156. Elevated glucose likely secondary to stress response 2. Marijuana use -Counseled patient on importance of stopping marijuana use due to cyclic and vomiting syndrome, patient voiced understanding however continues to use DVT prophylaxis-not indicated This patient was seen by Lisa Crow NP-C under the supervision of Dr. Vaughan. 28 minutes spent in clinical coordination of patient's plan of care. Documented by User: Dr. Susy Vaughan MD 06/26/21 19:45 PFSH Medical History COVID-19 Cyclic vomiting syndrome Marijuana smoker, episodic Home Medications promethazine 25 mg PO Q6H PRN PRN #10 tab 06/14/20 [Rx Last Taken 02/27/21] ondansetron 4 mg PO Q8H PRN PRN #14 tab 02/23/21 [Rx Last Taken 02/26/21] Allergy/AdvReac Type Severity Reaction Status Date / Time Fish Containing Products Allergy Swelling Verified 03/02/21 12:41 haloperidol [From Haldol] AdvReac Other Verified 03/02/21 14:35 Family History (Updated 06/26/21 @ 19:37 by Lisa Crow NP-C) Mother Hypertension Hyperlipidemia Father Hypertension Hyperlipidemia Surgical History Status post cholecystectomy Social History (Updated 06/26/21 @ 19:33 by Lisa Crow NP-C) Smoking Status: Former smoker substance use type: marijuana Results Lab / Micro Data Result Diagrams: 06/26/21 14:33 06/26/21 14:33
[2021-06-26 20:25] VITALS: BP 120/83; PULSE 70; RESP 16; TEMP 37.2; O2SAT 99
[2021-06-26 21:15] VITALS: BMI 22.6
[2021-06-26] MEDS: 0.9% Normal Saline 1,000 ML 125 ML IV (21:30)
[2021-06-26] MEDS: 0.9% Saline Lock 10 ML Syringe IV (21:37)
[2021-06-26 21:39] VITALS: BP 135/80; PULSE 64; RESP 18; TEMP 37.1; O2SAT 100
[2021-06-26] MEDS: Famotidine 200 MG/20 ML MDV 20 MG in 0.9% Normal Saline (Pres. free 8 ML 300 MG IV (22:57)
[2021-06-26] MEDS: Temazepam 15 MG Capsule PO (22:57)
[2021-06-26] MEDS: Haloperidol Lactate 5 MG/ML Vial 2 MG IV (23:30)
[2021-06-27] MEDS: proMETHazine 25 MG/ML Syringe 12.5 MG IM ×2 (03:32→13:23)
[2021-06-27 03:37] VITALS: BP 131/97; PULSE 62; RESP 16; TEMP 37.2; O2SAT 100
[2021-06-27] MEDS: 0.9% Normal Saline 1,000 ML 125 ML IV ×3 (03:49→18:19)
[2021-06-27 06:32] LABS: Absolute Lymphocyte Count 1.57 X10^3/uL (0.83-4.51); Absolute Neutrophil Count 10.1 X10^3/uL (2.0-7.7); Basophil# 0.03 X10^3/uL; Basophil% 0.2 % (0-1); Eosinophil# 0.01 X10^3/uL; Eosinophils% 0.1 % (0-5); Hematocrit 37.6 % (37-47); Hemoglobin 12.2 g/dL (12.0-15.0); Lymphocyte # 1.57 X10^3/ul (0.83-4.51); Lymphocyte % 12.5 % (19-41); Mean Corp Hgb Conc 32.4 g/dL (32-36); Mean Corpuscular Hgb 28.6 pg (27.0-32.0); Mean Corpuscular Volume 88.3 fL (81-99); Monocyte# 0.86 X10^3/uL; Monocyte% 6.8 % (0-10); NRBC Flagged by Analyzer 0 % (0-5); Neutrophil # 10.07 X10^3/uL (2.7-7.7); Neutrophil % 80.1 % (47-70); Platelet Count 146 K/mm3 (150-450); RBC Distribution Width CV 12.2 % (11.6-14.6); RBC Distribution Width SD 39.5 fl (35.1-43.9); Red Blood Count 4.26 M/mm3 (4.2-5.4); White Blood Count 12.6 K/mm3 (4.4-11.0)
[2021-06-27 07:00] LABS: AST(SGOT) 17 U/L (15-37); Alanine Aminotransfer ALT/SGPT 21 U/L (13-56); Albumin, Serum 3.6 g/dL (3.2-5.0); Alkaline Phosphatase 54 U/L (45-117); Anion Gap 5 (5-15); BUN 7 mg/dL (7-18); BUN/Creat Ratio 7.9 RATIO (10-20); Calcium,Total 8.6 mg/dL (8.5-10.1); Chloride 112 mmol/L (98-107); Creatinine, Serum 0.88 mg/dL (0.55-1.02); EST Glomerular Filtration Rate 78 mL/min (>60); Est Glom Filt Rate - Afr Amer 94 mL/min (>60); Estimated Creatinine Clearance 71.24 ml/min; Globulin 3.6 g/dL (2.2-4.2); Glucose 119 mg/dL (74-106); Potassium 3.9 mmol/L (3.5-5.1); Protein, Total 7.2 g/dL (6.4-8.2); Sodium Level 137 mmol/L (136-145)
[2021-06-27 07:11] VITALS: O2SAT 98
--- NOTE | 2021-06-27 07:38 | PN.HOSP_ITS ---
Subjective Subjective Patient is a 35-year-old lady with a history of cannabis dependence admitted with intractable nausea vomiting Objective Data Objective Data Vital Signs: Vital Signs Temp Pulse Resp BP Pulse Ox 98.9 F 62 16 131/97 H 98 06/27/21 03:37 06/27/21 03:37 06/27/21 03:37 06/27/21 03:37 06/27/21 07:11 Oxygen Delivery Method Room Air Weight: 59.8 kg Body Mass Index (BMI) 22.6 Intake & Output: Intake and Output for Last 24 Hours 06/25/21 06/26/21 06/27/21 23:59 23:59 23:59 Intake Total 1120 / 1120 789.58 / 789.58 Output Total 0 / 0 225 / 225 Balance 1120 / 1120 564.58 / 564.58 Lab / Micro Data Result Diagrams: 06/27/21 05:57 06/27/21 05:57 Labs: Laboratory Results - last 24 hr 06/26/21 14:33: WBC 11.5 H, RBC 4.85, Hgb 13.8, Hct 41.2, MCV 84.9, MCH 28.5, MCHC 33.5, RDW Std Deviation 36.8, RDW Coeff of Fabian 11.9, Plt Count 253, MPV 8.9, Immature Gran % (Auto) 0.300, Neut % (Auto) 93.1 H, Lymph % (Auto) 5.3 L, [place] % (Auto) 1.1, Eos % (Auto) 0.0, Baso % (Auto) 0.2, Absolute Neuts (auto) 10.7 H, Absolute Lymphs (auto) 0.61 L, Nucleated RBC % 0 06/26/21 14:33: Sodium 139, Potassium 3.7, Chloride 108 H, Carbon Dioxide 23.0, Anion Gap 8, BUN 11, Creatinine 1.10 H, Estim Creat Clear Calc 59.61, Est GFR (MDRD) Af Amer 73, Est GFR (MDRD) Non-Af 60, BUN/Creatinine Ratio 10.0, Glucose 156 H, Calcium 9.9, Total Bilirubin 0.40, Direct Bilirubin 0.13, AST 15, ALT 29, Alkaline Phosphatase 67, Total Protein 8.8 H, Albumin 4.8, Globulin 4.0, Lipase 42 L 06/26/21 14:33: Serum , Qual NEGATIVE 06/27/21 05:57: WBC 12.6 H, RBC 4.26, Hgb 12.2, Hct 37.6, MCV 88.3, MCH 28.6, MCHC 32.4, RDW Std Deviation 39.5, RDW Coeff of Fabian 12.2, Plt Count 146 L, MPV 10.0, Immature Gran % (Auto) 0.300, Neut % (Auto) 80.1 H, Lymph % (Auto) 12.5 L, [place] % (Auto) 6.8, Eos % (Auto) 0.1, Baso % (Auto) 0.2, Absolute Neuts (auto) 10.1 H, Absolute Lymphs (auto) 1.57, Nucleated RBC % 0 06/27/21 05:57: Sodium 137, Potassium 3.9, Chloride 112 H, Carbon Dioxide 20.0 L , Anion Gap 5, BUN 7, Creatinine 0.88, Estim Creat Clear Calc 71.24, Est GFR (MDRD) Af Amer 94, Est GFR (MDRD) Non-Af 78, BUN/Creatinine Ratio 7.9 L, Glucose 119 H, Calcium 8.6, Total Bilirubin 0.40, AST 17, ALT 21, Alkaline Phosphatase 54, Total Protein 7.2, Albumin 3.6, Globulin 3.6, Albumin/Globulin Ratio 1.0 Physical Exam Narrative GENERAL: cooperative HEENT: Atraumatic; EYES; Anicteric, Normal Conjunctiva NECK; supple, normal thyroid, RESPIRATORY: Diminished to auscultation CARDIOVASCULAR: Regular S1 S2, GI: soft, normoactive bowel sounds, : No Renal angle tenderness; EXTREMITIES: No edema, no clubbing, MUSCULOSKELETAL: no muscle wasting NEURO: Awake; no lateralizing signs. SKIN: No Rash PSYCH; Flat affect Assessment & Plan Assessment/Plan (1) Gastroenteritis due to norovirus: PLAN: Patient is a 35-year-old lady with a history of cannabis dependence admitted with intractable nausea vomiting 1. Cannabis induced cyclical vomiting ?Admitted to regular nursing floor managed symptomatically with IV fluid as well as antinausea medication. Patient had one bout of loose bowel movement on the morning of 06/26/2021 has since not had any bowel movement. Patient was counseled on cessation 2. DVT prophylaxis ?Low risk did encourage early ambulation Charges/Coding Visit Charges OBSV E&M: 07919 Initial observation care L2
[2021-06-27] MEDS: Ondansetron 4 MG/2 ML Vial IV ×3 (07:46→23:31)
[2021-06-27 09:23] LABS: Amphetamine Urine VISTA NEGATIVE (<1000 ng/mL); Barbiturate Urine VISTA NEGATIVE (< 200 ng/mL); Benzodiazepine Urine VISTA NEGATIVE (< 200 ng/mL); Cocaine Urine VISTA NEGATIVE (< 300 ng/mL); Ecstacy Urine VISTA NEGATIVE (< 500 ng/mL); Methadone Urine VISTA NEGATIVE (< 300 ng/mL); PCP Urine VISTA NEGATIVE (< 25 ng/mL); THC Urine VISTA POSITIVE (< 50 ng/mL); Vista UDS pH Range 6
[2021-06-27 10:20] VITALS: BP 158/98; PULSE 67; RESP 16; TEMP 37.3; O2SAT 98
[2021-06-27] MEDS: Famotidine 200 MG/20 ML MDV 20 MG in 0.9% Normal Saline (Pres. free 8 ML 300 MG IV ×2 (10:22→20:02)
[2021-06-27] MEDS: Haloperidol Lactate 5 MG/ML Vial 2 MG IM (10:27)
[2021-06-27 15:30] VITALS: BP 131/91; PULSE 65; RESP 18; TEMP 37.2; O2SAT 99
[2021-06-27] MEDS: proMETHazine 25 MG/ML Syringe IM (18:21)
[2021-06-27 20:01] VITALS: BP 142/94; PULSE 68; RESP 16; TEMP 37.3; O2SAT 100
[2021-06-28] MEDS: 0.9% Normal Saline 1,000 ML 125 ML IV ×3 (02:18→16:55)
[2021-06-28 02:23] VITALS: BP 148/91; PULSE 73; RESP 18; TEMP 37; O2SAT 100
[2021-06-28] MEDS: Haloperidol Lactate 5 MG/ML Vial 2 MG IM ×3 (02:32→21:18)
[2021-06-28 07:13] VITALS: O2SAT 98
[2021-06-28] MEDS: proMETHazine 25 MG/ML Syringe IM (07:20)
[2021-06-28 08:53] VITALS: BP 138/85; PULSE 61; RESP 16; TEMP 36.8; O2SAT 100
[2021-06-28] MEDS: 0.9% Saline Lock 10 ML Syringe IV ×2 (09:12→21:07)
[2021-06-28] MEDS: Famotidine 200 MG/20 ML MDV 20 MG in 0.9% Normal Saline (Pres. free 8 ML 300 MG IV ×2 (09:12→21:07)
[2021-06-28] MEDS: Ondansetron 4 MG/2 ML Vial IV ×2 (09:12→17:57)
--- NOTE | 2021-06-28 11:43 | PN.HOSP_ITS ---
Subjective Subjective Patient seen and examined. She still complains of nausea adn vomiting. Her diarrhea has improved slightly. Review of systems is otherwise negative. Objective Data Objective Data Vital Signs: Vital Signs Temp Pulse Resp BP Pulse Ox 98.3 F 61 16 138/85 H 100 06/28/21 08:53 06/28/21 08:53 06/28/21 08:53 06/28/21 08:53 06/28/21 08:53 Oxygen Delivery Method Room Air Weight: 132 lb 4.438 oz Body Mass Index (BMI) 22.6 Intake & Output: Intake and Output for Last 24 Hours 06/26/21 06/27/21 06/28/21 23:59 23:59 23:59 Intake Total 1120 / 1120 3513.75 / 3513.75 997.92 / 997.92 Output Total 0 / 0 675 / 675 Balance 1120 / 1120 2838.75 / 2838.75 996.92 / 996.92 Lab / Micro Data Result Diagrams: 06/27/21 05:57 06/27/21 05:57 Micro: Microbiology 06/27/21 07:50 Stool Enteric Bacteriology - Final Norovirus 06/27/21 07:50 Stool C. difficile DNA Amplification - Final Physical Exam Const alert and oriented x3 Orientation / Consciousness: lethargic Exam Limitations: no limitations HEENT head/scalp atraumatic, moist oral mucous membranes and oropharynx normal Head and Scalp: normocephalic Eyes PERRL, EOMs intact bilaterally and conjunctivae normal Neck no lymphadenopathy Resp normal respiratory effort, no retractions, no use of accessory muscles and clear to auscultation bilaterally Cardio regular rate, regular rhythm, S1 normal heart sound, S2 normal heart sound and no murmurs GI normal to inspection, nondistended, normoactive bowel sounds, soft to palpation, non-tender and non-distended Extremity normal to inspection, full ROM and no clubbing, cyanosis or edema Peripheral Pulses: Yes pulses 2+ throughout Skin no rashes or lesions noted Neuro oriented x3, CN's II-XII intact bilaterally and moves all extremities Sensorium / Orientation: awake and alert Psych affect normal Assessment & Plan Assessment/Plan (1) Intractable vomiting: (2) Gastroenteritis due to norovirus: (3) Marijuana use: PLAN: #Intractable nausea and vomiting due to marijuana use * still having some nausea and vomiting * on phenergan * continue gentle hydration with IVF * #Diarrhea due to norovirus infection * says diarrhea has improved a bit * continue gentle hydration with IVF * DVT prophylaxis:SCDs Charges/Coding Visit Charges Inpatient E&M: 41473 Subs Hosp L2
[2021-06-28 14:29] VITALS: BP 95/62; PULSE 58; RESP 16; TEMP 36.9; O2SAT 100
[2021-06-28 20:30] VITALS: BP 140/95; PULSE 63; RESP 18; TEMP 37.2; O2SAT 100
[2021-06-29] MEDS: 0.9% Normal Saline 1,000 ML 125 ML IV ×3 (00:26→17:53)
[2021-06-29 02:53] VITALS: BP 114/71; PULSE 55; RESP 16; TEMP 36.8; O2SAT 97
[2021-06-29] MEDS: 0.9% Saline Lock 10 ML Syringe IV ×3 (03:31→22:29)
[2021-06-29] MEDS: Ondansetron 4 MG/2 ML Vial IV ×3 (03:31→20:51)
[2021-06-29] MEDS: proMETHazine 25 MG/ML Syringe IM ×3 (05:19→22:38)
[2021-06-29 05:53] LABS: Absolute Lymphocyte Count 1.68 X10^3/uL (0.83-4.51); Absolute Neutrophil Count 7.5 X10^3/uL (2.0-7.7); Basophil# 0.02 X10^3/uL; Basophil% 0.2 % (0-1); Eosinophil# 0.05 X10^3/uL; Eosinophils% 0.5 % (0-5); Hematocrit 39.2 % (37-47); Hemoglobin 13.1 g/dL (12.0-15.0); Lymphocyte # 1.68 X10^3/ul (0.83-4.51); Mean Corp Hgb Conc 33.4 g/dL (32-36); Mean Corpuscular Volume 86.9 fL (81-99); Monocyte% 6.1 % (0-10); NRBC Flagged by Analyzer 0 % (0-5); Neutrophil # 7.53 X10^3/uL (2.7-7.7); Neutrophil % 75.9 % (47-70); POSITIVE COUNT YES; Platelet Count 100 K/mm3 (150-450); RBC Distribution Width CV 11.9 % (11.6-14.6); RBC Distribution Width SD 38.5 fl (35.1-43.9); Red Blood Count 4.51 M/mm3 (4.2-5.4); White Blood Count 9.9 K/mm3 (4.4-11.0)
[2021-06-29 05:55] LABS: Differential Indicated SCAN CRITERIA MET
[2021-06-29 06:22] LABS: Platelet Morphology CLUMPED
[2021-06-29 06:27] LABS: Anion Gap 6 (5-15); BUN 7 mg/dL (7-18); BUN/Creat Ratio 7.9 RATIO (10-20); Calcium,Total 8.1 mg/dL (8.5-10.1); Chloride 109 mmol/L (98-107); Creatinine, Serum 0.89 mg/dL (0.55-1.02); EST Glomerular Filtration Rate 77 mL/min (>60); Est Glom Filt Rate - Afr Amer 93 mL/min (>60); Estimated Creatinine Clearance 70.44 ml/min; Glucose 94 mg/dL (74-106); Potassium 3.8 mmol/L (3.5-5.1); Sodium Level 136 mmol/L (136-145)
[2021-06-29 06:45] VITALS: O2SAT 97
[2021-06-29] MEDS: Famotidine 200 MG/20 ML MDV 20 MG in 0.9% Normal Saline (Pres. free 8 ML 300 MG IV ×2 (09:37→22:30)
[2021-06-29 09:42] VITALS: BP 147/100; PULSE 64; RESP 16; TEMP 36.9; O2SAT 99
--- NOTE | 2021-06-29 11:51 | PN.HOSP_ITS ---
Subjective Subjective Patient seen and examined. She still complains of nausea and vomiting but diarrhea is improving. Review of systems is otherwise negative. She has otherwise remained hemodynamically stable. Objective Data Objective Data Vital Signs: Vital Signs Temp Pulse Resp BP Pulse Ox 98.4 F 64 16 147/100 H 99 06/29/21 09:42 06/29/21 09:42 06/29/21 09:42 06/29/21 09:42 06/29/21 09:42 Oxygen Delivery Method Room Air Weight: 129 lb 0.7 oz Body Mass Index (BMI) 22.6 Intake & Output: Intake and Output for Last 24 Hours 06/27/21 06/28/21 06/29/21 23:59 23:59 23:59 Intake Total 3513.75 / 3513.75 2840.84 / 2960.84 2809.58 / 2809.58 Output Total 675 / 675 251 / 351 650 / 650 Balance 2838.75 / 2838.75 2589.84 / 2609.84 2159.58 / 2159.58 Lab / Micro Data Result Diagrams: 06/29/21 05:24 06/29/21 05:24 Labs: Laboratory Results - last 24 hr 06/29/21 05:24: WBC 9.9, RBC 4.51, Hgb 13.1, Hct 39.2, MCV 86.9, MCH 29.0, MCHC 33.4, RDW Std Deviation 38.5, RDW Coeff of Fabian 11.9, Plt Count 100 L, MPV 11.0, Immature Gran % (Auto) 0.300, Neut % (Auto) 75.9 H, Lymph % (Auto) 17.0 L, [place] % (Auto) 6.1, Eos % (Auto) 0.5, Baso % (Auto) 0.2, Absolute Neuts (auto) 7.5, Absolute Lymphs (auto) 1.68, Nucleated RBC % 0, Plt Morphology Comment CLUMPED 06/29/21 05:24: Sodium 136, Potassium 3.8, Chloride 109 H, Carbon Dioxide 21.0, Anion Gap 6, BUN 7, Creatinine 0.89, Estim Creat Clear Calc 70.44, Est GFR (MDRD) Af Amer 93, Est GFR (MDRD) Non-Af 77, BUN/Creatinine Ratio 7.9 L, Glucose 94, Calcium 8.1 L Micro: Microbiology 06/27/21 07:50 Stool Enteric Bacteriology - Final Norovirus 06/27/21 07:50 Stool C. difficile DNA Amplification - Final Physical Exam Const alert, oriented x3 and no apparent distress General Appearance: cooperative Orientation / Consciousness: lethargic Exam Limitations: no limitations HEENT normocephalic, head/scalp atraumatic, moist oral mucous membranes and oropharynx normal Head and Scalp: normocephalic Eyes PERRL, EOMs intact bilaterally, conjunctivae normal and no scleral icterus Neck no lymphadenopathy and supple General: trachea midline Resp normal respiratory effort, normal air movement, no retractions, no use of accessory muscles and clear to auscultation bilaterally Cardio regular rate, regular rhythm, S1 normal heart sound, S2 normal heart sound and no murmurs GI normal to inspection, nondistended, normoactive bowel sounds, soft to palpation, non-tender and non-distended Auscultation: hyperactive bowel sounds Extremity normal to inspection, full ROM, normal capillary refill and no clubbing, cyanosis or edema Peripheral Pulses: Yes pulses 2+ throughout Skin no rashes or lesions noted General Skin Exam: no breakdown and turgor normal Lesions: no lesions Rashes: no rashes Neuro oriented x3, CN's II-XII intact bilaterally, moves all extremities, no focal motor deficits and no sensory deficits noted Sensorium / Orientation: awake and alert Speech: speech normal Motor Exam: Negative for general weakness Psych affect normal Mood & Affect: tearful Assessment & Plan Assessment/Plan (1) Intractable vomiting: (2) Gastroenteritis due to norovirus: (3) Marijuana use: PLAN: #Intractable nausea and vomiting due to marijuana use * still having some nausea and vomiting; diarrhea has improved * on phenergan and IV zofran * continue gentle hydration with IVF * #Diarrhea due to norovirus infection * diarrhea is improving. says she hasnt had any diarrhea overnight. * will monitor. * encourage oral hydration. * currently on clear liquid diet; advance as tolerated. * DVT prophylaxis:SCDs Charges/Coding Visit Charges Inpatient E&M: 71774 Subs Hosp L2
[2021-06-29 15:37] VITALS: BP 151/96; PULSE 60; RESP 16; TEMP 37.4; O2SAT 100
[2021-06-29 22:28] VITALS: BP 138/88; PULSE 66; RESP 16; TEMP 37.3; O2SAT 100
[2021-06-30 02:27] VITALS: BP 104/68; PULSE 60; RESP 16; TEMP 36.8; O2SAT 99
[2021-06-30] MEDS: 0.9% Normal Saline 1,000 ML 125 ML IV ×3 (02:29→17:37)
[2021-06-30] MEDS: Ondansetron 4 MG/2 ML Vial IV ×2 (05:37→21:15)
[2021-06-30] MEDS: 0.9% Saline Lock 10 ML Syringe IV (05:37)
[2021-06-30] MEDS: proMETHazine 25 MG/ML Syringe IM (06:36)
[2021-06-30 07:12] LABS: Absolute Lymphocyte Count 4.26 X10^3/uL (0.83-4.51); Absolute Neutrophil Count 5.3 X10^3/uL (2.0-7.7); Basophil# 0.03 X10^3/uL; Basophil% 0.3 % (0-1); Eosinophil# 0.16 X10^3/uL; Eosinophils% 1.5 % (0-5); Hematocrit 36.7 % (37-47); Hemoglobin 12.4 g/dL (12.0-15.0); Lymphocyte # 4.26 X10^3/ul (0.83-4.51); Lymphocyte % 40.1 % (19-41); Mean Corp Hgb Conc 33.8 g/dL (32-36); Mean Corpuscular Hgb 28.8 pg (27.0-32.0); Mean Corpuscular Volume 85.3 fL (81-99); Mean Platelet Vol. 9.3 fl (6.2-12.0); Monocyte# 0.84 X10^3/uL; Monocyte% 7.9 % (0-10); NRBC Flagged by Analyzer 0 % (0-5); Neutrophil % 49.9 % (47-70); POSITIVE MORPHOLOGY YES; Platelet Count 247 K/mm3 (150-450); RBC Distribution Width CV 11.7 % (11.6-14.6); RBC Distribution Width SD 35.8 fl (35.1-43.9); White Blood Count 10.6 K/mm3 (4.4-11.0)
[2021-06-30 07:15] LABS: Differential Indicated SCAN CRITERIA MET
[2021-06-30 07:32] LABS: Anion Gap 7 (5-15); BUN 9 mg/dL (7-18); BUN/Creat Ratio 10.4 RATIO (10-20); Chloride 107 mmol/L (98-107); Creatinine, Serum 0.86 mg/dL (0.55-1.02); EST Glomerular Filtration Rate 79 mL/min (>60); Est Glom Filt Rate - Afr Amer 96 mL/min (>60); Glucose 85 mg/dL (74-106); Potassium 3.1 mmol/L (3.5-5.1); Sodium Level 138 mmol/L (136-145)
[2021-06-30] MEDS: Haloperidol Lactate 5 MG/ML Vial 2 MG IM (08:54)
[2021-06-30] MEDS: Famotidine 200 MG/20 ML MDV 20 MG in 0.9% Normal Saline (Pres. free 8 ML 300 MG IV ×2 (08:55→21:01)
[2021-06-30 08:57] VITALS: BP 149/97; PULSE 70; RESP 16; TEMP 36.8; O2SAT 100
--- NOTE | 2021-06-30 09:45 | EX.PCM.CON.G ---
HPI Consult Data Date of Consult: 06/30/21 HPI Narrative HPI Narrative: SYLVIE MERCADO, is a 35 F who presents with acute onset of nausea and vomiting. She was diagnosed with acute norovirus. She has a past medical history of anxiety, cyclic vomiting syndrome and marijuana hematemesis. She smokes marijuana daily basis so she does not have to take any medicines for anxiety. She has been told in the past that she has marijuana hyperemesis however she does not think so. She says that the only way that she cannot be nauseous is to smoke marijuana. She has no history of migraine disorder and does not suffer from nausea vomiting from her menstrual cycle. She has no family members with similar symptoms. She has 2 of her own children that are in good health with no medical history. She does not take any medicines on a daily basis. She has not been able to eat anything or drink anything over the last several days. I was consulted for management of nausea and vomiting. [facility] Medical History (Updated 06/26/21 @ 19:[address] Susy Vaughan MD) COVID-19 Cyclic vomiting syndrome Esophageal reflux Former tobacco use Marijuana smoker, episodic Home Medications promethazine 25 mg PO Q6H PRN PRN #10 tab 06/14/20 [Rx Last Taken 02/27/21] ondansetron 4 mg PO Q8H PRN PRN #14 tab 02/23/21 [Rx Last Taken 02/26/21] Allergy/AdvReac Type Severity Reaction Status Date / Time Fish Containing Products Allergy Swelling Verified 03/02/21 12:41 haloperidol [From Haldol] AdvReac Other Verified 03/02/21 14:35 Family History (Updated 06/26/21 @ 19:37 by JORGE Garcia) Mother Hypertension Hyperlipidemia Father Hypertension Hyperlipidemia Surgical History Status post cholecystectomy Social History (Updated 06/26/21 @ 19:[address] Susy Vaughan MD) household members: significant other Smoking Status: Former smoker how long ago did patient quit smoking: Quit 15 years prior to current presentation. alcohol intake: never substance use type: marijuana ROS Gastrointestinal Gastrointestinal: Reports nausea and vomiting Physical Exam Const alert General Appearance: cooperative Orientation / Consciousness: oriented to person HEENT hearing grossly normal bilaterally Head and Scalp: normal to inspection Face and Sinus: face symmetric Nose: external nose normal Mouth: oral and palatal mucosa normal Eyes conjunctivae normal General Eye: normal appearance of both eyes Neck full ROM General: normal visual inspection Lymph Lymphatic: no lymphadenopathy noted Chest inspection of chest normal and palpation of chest normal Chest: symmetrical chest wall rise Resp normal respiratory effort Effort and Inspection: able to speak in complete sentences Cardio regular rate GI non-distended Percussion: normal to percussion Rectal Exam: deferred Neuro Speech: speech normal Gait (Neuro): normal gait Lab / Micro Data Result Diagrams: 06/30/21 06:06 06/30/21 06:06 Labs: Laboratory Results - last 24 hr 06/30/21 06:06: WBC 10.6, RBC 4.30, Hgb 12.4, Hct 36.7 L, MCV 85.3, MCH 28.8, MCHC 33.8, RDW Std Deviation 35.8, RDW Coeff of Fabian 11.7, Plt Count 247, MPV 9.3, Immature Gran % (Auto) 0.300, Neut % (Auto) 49.9, Lymph % (Auto) 40.1, [place] % (Auto) 7.9, Eos % (Auto) 1.5, Baso % (Auto) 0.3, Absolute Neuts (auto) 5.3, Absolute Lymphs (auto) 4.26, Nucleated RBC % 0 06/30/21 06:06: Sodium 138, Potassium 3.1 L, Chloride 107, Carbon Dioxide 24.0, Anion Gap 7, BUN 9, Creatinine 0.86, Estim Creat Clear Calc 72.90, Est GFR (MDRD) Af Amer 96, Est GFR (MDRD) Non-Af 79, BUN/Creatinine Ratio 10.4, Glucose 85, Calcium 8.0 L Assessment & Plan Assessment/Plan (1) Gastroenteritis due to norovirus: PLAN: She is not having any more diarrhea secondary to norovirus. (2) Intractable vomiting: PLAN: She could be experiencing postinfectious nausea vomiting in the setting of a chronic condition such as cyclic vomiting syndrome secondary to marijuana hyperemesis. Recommend scopolamine patch every 72 hours, rectal Compazine and IV Reglan 5 mg every 6 hours all schedule. She will also need low-dose Xanax 2-3 times a day scheduled in order to break her nausea cycle. As an outpatient she will need a scopolamine patch and rectal Compazine nightly because she will continue to smoke marijuana and with chronic usage over 10 years it can linger in the system for at least a year. (3) Marijuana use: PLAN: She was counseled on the risk and benefits of marijuana hyperemesis and the chronic central nervous system, cardiovascular and gastrointestinal changes that can occur with chronic usage of the substance. Charges/Coding Visit Charges Inpatient E&M: 45081 Init Hosp L3
[2021-06-30] MEDS: LORazepam 2 MG/ML Syringe 0.5 MG IV (10:15)
[2021-06-30] MEDS: Scopolamine 1mg/72hr Patch 1 PATCH TD (10:17)
[2021-06-30] MEDS: Metoclopramide 10 MG/2 ML Vial 5 MG IV ×2 (10:19→17:32)
--- NOTE | 2021-06-30 10:43 | PN.HOSP_ITS ---
Subjective Subjective Patient seen and examined. She still complaining of intractable nausea and vomiting and states the Phenergan and Zofran are both not helping. Her diarrhea has resolved. Review of systems otherwise negative. Objective Data Objective Data Vital Signs: Vital Signs Temp Pulse Resp BP Pulse Ox 98.3 F 70 16 149/97 H 100 06/30/21 08:57 06/30/21 08:57 06/30/21 08:57 06/30/21 08:57 06/30/21 08:57 Oxygen Delivery Method Room Air Weight: 134 lb 14.766 oz Body Mass Index (BMI) 22.6 Intake & Output: Intake and Output for Last 24 Hours 06/28/21 06/29/21 06/30/21 23:59 23:59 23:59 Intake Total 2840.84 / 2960.84 4531.25 / 4531.25 1994.42 / 1994. Output Total 251 / 351 650 / 650 200 / 200 Balance 2589.84 / 2609.84 3881.25 / 3881.25 1795.42 / 1795.42 Lab / Micro Data Result Diagrams: 06/30/21 06:06 06/30/21 06:06 Labs: Laboratory Results - last 24 hr 06/30/21 06:06: WBC 10.6, RBC 4.30, Hgb 12.4, Hct 36.7 L, MCV 85.3, MCH 28.8, MCHC 33.8, RDW Std Deviation 35.8, RDW Coeff of Fbaian 11.7, Plt Count 247, MPV 9.3, Immature Gran % (Auto) 0.300, Neut % (Auto) 49.9, Lymph % (Auto) 40.1, [place] % (Auto) 7.9, Eos % (Auto) 1.5, Baso % (Auto) 0.3, Absolute Neuts (auto) 5.3, Absolute Lymphs (auto) 4.26, Nucleated RBC % 0 06/30/21 06:06: Sodium 138, Potassium 3.1 L, Chloride 107, Carbon Dioxide 24.0, Anion Gap 7, BUN 9, Creatinine 0.86, Estim Creat Clear Calc 72.90, Est GFR (MDRD) Af Amer 96, Est GFR (MDRD) Non-Af 79, BUN/Creatinine Ratio 10.4, Glucose 85, Calcium 8.0 L Micro: Microbiology 06/27/21 07:50 Stool Enteric Bacteriology - Final Norovirus 06/27/21 07:50 Stool C. difficile DNA Amplification - Final Physical Exam Const alert, oriented x3 and no apparent distress Constitutional Narrative: looks uncomfortable General Appearance: cooperative Exam Limitations: no limitations HEENT normocephalic, head/scalp atraumatic, moist oral mucous membranes and oropharynx normal Head and Scalp: normocephalic Eyes PERRL, EOMs intact bilaterally, conjunctivae normal and no scleral icterus Neck no lymphadenopathy and supple General: trachea midline Resp normal respiratory effort, normal air movement, no retractions, no use of ac cessory muscles and clear to auscultation bilaterally Cardio regular rate, regular rhythm, S1 normal heart sound, S2 normal heart sound and no murmurs GI normal to inspection, nondistended, normoactive bowel sounds, soft to palpation, non-tender and non-distended Auscultation: hyperactive bowel sounds Extremity normal to inspection, full ROM, normal capillary refill and no clubbing, cyanosis or edema Peripheral Pulses: Yes pulses 2+ throughout Skin no rashes or lesions noted General Skin Exam: no breakdown and turgor normal Lesions: no lesions Rashes: no rashes Neuro oriented x3, CN's II-XII intact bilaterally, moves all extremities, no focal motor deficits and no sensory deficits noted Sensorium / Orientation: awake and alert Speech: speech normal Motor Exam: Negative for general weakness Psych Psych Narrative: looks uncomfortable and anxious Mood & Affect: tearful Assessment & Plan Assessment/Plan (1) Intractable vomiting: (2) Gastroenteritis due to norovirus: (3) Marijuana use: PLAN: #Intractable nausea and vomiting due to marijuana use * still having persistent nausea and vomiting; diarrhea has improved * on phenergan and IV zofran * continue gentle hydration with IVF * GI consulted o/a of intractable nausea and vomiting; per GI recommendation, to start on scopolamine patch, rectal compazine and IV reglan. GI recommends starting low dose xanax * #Diarrhea due to norovirus infection * diarrhea has largely resolved. * will monitor. * encourage oral hydration. * currently on clear liquid diet; advance as tolerated. * DVT prophylaxis:SCDs Charges/Coding Visit Charges Inpatient E&M: 15672 Subs Hosp L2
[2021-06-30 11:17] LABS: Differential Comment SCANNED; Reactive Lymphocyte 1+
[2021-06-30 13:48] VITALS: BP 108/75; PULSE 90; RESP 16; TEMP 36.8; O2SAT 100
--- NOTE | 2021-06-30 14:22 | CASEMGMT ---
PEDRO LUIS BANKS assessment: Face to Face with patient for initial transition planning/care coordination assessment. PEDRO LUIS BANKS introduced self and role at [facility], pt voices understanding and consents to assessment. Pt is lying in bed in no distress on room air. Pt is A/Ox4 and answers all questions appropriately. Care providers, pharmacy, and demographics verified/updated. Presentation: Pt c/o N/V since yesterday Admitting dx: N/V/D, Norovirus + PCP: [facility] Specialists: None Preferred Pharmacy: [facility] Insurance: [employer] Prescription Benefit: [employer] Living Will/HPOA: Pt does not have LW/HPOA and declines AD info. LNOK: Barb Young, sig other; Jesica Strong, mother Living Arrangements: Pt lives with sig other and 4 kids in 2 story home and states no concerns at home. Pt is independent with ADL's. Transportation: Pt drives self and states no transportation concerns. DME/HHC: Pt states no current DME or need for any further DME. Pt states no hx of HHC or SNF. Pt states no concerns with going home at time of discharge. Pt is unemployed. Pt states does not smoke cigarettes or drink ETOH, but does smoke marijuana daily. Pt states no concerns/needs. CM to follow for any further discharge planning/needs. Advised pt to ask for CM if any further questions/concerns/needs arise, voices understanding. Pt Goal: Home Plan: [place] PEDRO LUIS BANKS
[2021-06-30 20:55] VITALS: BP 114/65; PULSE 66; RESP 16; TEMP 37.3; O2SAT 99
[2021-07-01] MEDS: Metoclopramide 10 MG/2 ML Vial 5 MG IV ×4 (00:25→16:58)
[2021-07-01] MEDS: 0.9% Normal Saline 1,000 ML 125 ML IV ×3 (00:26→16:04)
[2021-07-01] MEDS: proCHLORPERazine 25 MG Suppos. RC (02:28)
[2021-07-01 02:32] VITALS: BP 152/96; PULSE 77; RESP 16; TEMP 36.9; O2SAT 99
[2021-07-01 04:59] LABS: Absolute Lymphocyte Count 2.26 X10^3/uL (0.83-4.51); Absolute Neutrophil Count 5.7 X10^3/uL (2.0-7.7); Basophil# 0.03 X10^3/uL; Basophil% 0.3 % (0-1); Eosinophil# 0.11 X10^3/uL; Eosinophils% 1.3 % (0-5); Hematocrit 34.5 % (37-47); Hemoglobin 11.6 g/dL (12.0-15.0); Lymphocyte # 2.26 X10^3/ul (0.83-4.51); Mean Corp Hgb Conc 33.6 g/dL (32-36); Mean Corpuscular Hgb 28.3 pg (27.0-32.0); Mean Corpuscular Volume 84.1 fL (81-99); Mean Platelet Vol. 8.9 fl (6.2-12.0); Monocyte% 6.9 % (0-10); NRBC Flagged by Analyzer 0 % (0-5); Neutrophil # 5.66 X10^3/uL (2.7-7.7); Neutrophil % 65.3 % (47-70); Platelet Count 245 K/mm3 (150-450); RBC Distribution Width CV 11.4 % (11.6-14.6); RBC Distribution Width SD 34.8 fl (35.1-43.9); White Blood Count 8.7 K/mm3 (4.4-11.0)
[2021-07-01 05:14] LABS: Anion Gap 8 (5-15); BUN 10 mg/dL (7-18); BUN/Creat Ratio 12.7 RATIO (10-20); Chloride 106 mmol/L (98-107); Creatinine, Serum 0.78 mg/dL (0.55-1.02); EST Glomerular Filtration Rate 89 mL/min (>60); Est Glom Filt Rate - Afr Amer 107 mL/min (>60); Estimated Creatinine Clearance 80.38 ml/min; Glucose 72 mg/dL (74-106); Sodium Level 137 mmol/L (136-145)
[2021-07-01] MEDS: Potassium Chloride 10mEq/100mL 10 MEQ/100 ML IV.SOLN. 100 MEQ IV BOLUS ×4 (06:47→10:34)
[2021-07-01] MEDS: Haloperidol Lactate 5 MG/ML Vial 2 MG IM ×2 (07:51→16:57)
[2021-07-01 08:08] VITALS: BP 132/81; PULSE 71; RESP 16; TEMP 37.1; O2SAT 100
--- NOTE | 2021-07-01 09:18 | PCM.PROGNOTE ---
Subjective Subjective Patient says she still nauseous and has been sleeping off and on. She says that she cannot eat much due to the nausea. Objective Data Objective Data Vital Signs: Vital Signs Temp Pulse Resp BP Pulse Ox 98.7 F 71 16 132/81 H 100 07/01/21 08:08 07/01/21 08:08 07/01/21 08:08 07/01/21 08:08 07/01/21 08:08 Oxygen Delivery Method Room Air Weight: 130 lb 4.691 oz Body Mass Index (BMI) 22.6 Intake & Output: Intake and Output for Last 24 Hours 06/29/21 06/30/21 07/01/21 23:59 23:59 23:59 Intake Total 4531.25 / 4531.25 3017.92 / 3017.92 2583.33 / 2583.33 Output Total 650 / 650 200 / 200 200 / 200 Balance 3881.25 / 3881.25 2817.92 / 2817.92 2383.33 / 2383.33 Lab / Micro Data Result Diagrams: 07/01/21 04:35 07/01/21 04:35 Labs: Laboratory Results - last 24 hr 06/30/21 06:06: Differential Comment SCANNED, Reactive Lymphocytes 1+ 07/01/21 04:35: WBC 8.7, RBC 4.10 L, Hgb 11.6 L, Hct 34.5 L, MCV 84.1, MCH 28.3, MCHC 33.6, RDW Std Deviation 34.8 L, RDW Coeff of Fabian 11.4 L, Plt Count 245, MPV 8.9, Immature Gran % (Auto) 0.200, Neut % (Auto) 65.3, Lymph % (Auto) 26.0, [place] % (Auto) 6.9, Eos % (Auto) 1.3, Baso % (Auto) 0.3, Absolute Neuts (auto) 5.7, Absolute Lymphs (auto) 2.26, Nucleated RBC % 0 07/01/21 04:35: Sodium 137, Potassium 3.0 L, Chloride 106, Carbon Dioxide 23.0, Anion Gap 8, BUN 10, Creatinine 0.78, Estim Creat Clear Calc 80.38, Est GFR (MDRD) Af Amer 107, Est GFR (MDRD) Non-Af 89, BUN/Creatinine Ratio 12.7, Glucose 72 L, Calcium 8.0 L Micro: Microbiology 06/27/21 07:50 Stool Enteric Bacteriology - Final Norovirus 06/27/21 07:50 Stool C. difficile DNA Amplification - Final Physical Exam Const alert General Appearance: cooperative Orientation / Consciousness: oriented to person HEENT hearing grossly normal bilaterally Head and Scalp: normal to inspection Face and Sinus: face symmetric Nose: external nose normal Mouth: oral and palatal mucosa normal Eyes conjunctivae normal General Eye: normal appearance of both eyes Neck full ROM General: normal visual inspection Lymph Lymphatic: no lymphadenopathy noted Chest inspection of chest normal and palpation of chest normal Chest: symmetrical chest wall rise Resp normal respiratory effort Effort and Inspection: able to speak in complete sentences Cardio regular rate GI non-distended Percussion: normal to percussion Rectal Exam: deferred Neuro Speech: speech normal Gait (Neuro): normal gait Assessment & Plan Assessment/Plan (1) Intractable vomiting: PLAN: She is on scopolamine patch, rectal Compazine, Xanax and IV Reglan. She has not had any vomiting but she still complains of nausea. I do not know if her nausea is all secondary to issues with her GI tract. Of note, she has a pre-existing diagnosis of cyclic vomiting syndrome that I believe has been exacerbated by chronic marijuana usage. Likely her nausea and complaints have a supratentorial component. I am not sure she has depression. She already has a diagnosis of anxiety and is not being treated. If she continues to be nauseous tomorrow then we may have to perform an upper endoscopy. Keep her n.p.o. past midnight please. (2) Marijuana use: PLAN: There have been some studies with buspirone 10 mg 3 times a day for marijuana hyperemesis in patients that are refractory to haloperidol. That may be some usage in the future. Charges/Coding Visit Charges Inpatient E&M: 34096 Subs Hosp L2
--- NOTE | 2021-07-01 10:27 | PN.HOSP_ITS ---
Subjective Subjective Patient seen and examined. Still complains of nausea and vomiting incision vomited several times during the night. She is however wanting to advance her diet wants to eat least applesauce. Chest radiotherapy stable. Potassium is 3 today. Objective Data Objective Data Vital Signs: Vital Signs Temp Pulse Resp BP Pulse Ox 98.7 F 71 16 132/81 H 100 07/01/21 08:08 07/01/21 08:08 07/01/21 08:08 07/01/21 08:08 07/01/21 08:08 Oxygen Delivery Method Room Air Weight: 130 lb 4.691 oz Body Mass Index (BMI) 22.6 Intake & Output: Intake and Output for Last 24 Hours 06/29/21 06/30/21 07/01/21 23:59 23:59 23:59 Intake Total 4531.25 / 4531.25 3017.92 / 3017.92 2583.33 / 2583.33 Output Total 650 / 650 200 / 200 200 / 200 Balance 3881.25 / 3881.25 2817.92 / 2817.92 2383.33 / 2383.33 Lab / Micro Data Result Diagrams: 07/01/21 04:35 07/01/21 04:35 Labs: Laboratory Results - last 24 hr 06/30/21 06:06: Differential Comment SCANNED, Reactive Lymphocytes 1+ 07/01/21 04:35: WBC 8.7, RBC 4.10 L, Hgb 11.6 L, Hct 34.5 L, MCV 84.1, MCH 28.3, MCHC 33.6, RDW Std Deviation 34.8 L, RDW Coeff of Fabian 11.4 L, Plt Count 245, MPV 8.9, Immature Gran % (Auto) 0.200, Neut % (Auto) 65.3, Lymph % (Auto) 26.0, [place] % (Auto) 6.9, Eos % (Auto) 1.3, Baso % (Auto) 0.3, Absolute Neuts (auto) 5.7, Absolute Lymphs (auto) 2.26, Nucleated RBC % 0 07/01/21 04:35: Sodium 137, Potassium 3.0 L, Chloride 106, Carbon Dioxide 23.0, Anion Gap 8, BUN 10, Creatinine 0.78, Estim Creat Clear Calc 80.38, Est GFR (MDRD) Af Amer 107, Est GFR (MDRD) Non-Af 89, BUN/Creatinine Ratio 12.7, Glucose 72 L, Calcium 8.0 L Micro: Microbiology 06/27/21 07:50 Stool Enteric Bacteriology - Final Norovirus 06/27/21 07:50 Stool C. difficile DNA Amplification - Final Physical Exam Const alert, oriented x3 and no apparent distress Constitutional Narrative: looks uncomfortable General Appearance: cooperative Orientation / Consciousness: lethargic Exam Limitations: no limitations HEENT normocephalic, head/scalp atraumatic, moist oral mucous membranes and oropharynx normal Head and Scalp: normocephalic Eyes PERRL, EOMs intact bilaterally, conjunctivae normal and no scleral icterus Neck no lymphadenopathy and supple General: trachea midline Resp normal respiratory effort, normal air movement, no retractions, no use of accessory muscles and clear to auscultation bilaterally Cardio regular rate, regular rhythm, S1 normal heart sound, S2 normal heart sound and no murmurs GI normal to inspection, nondistended, normoactive bowel sounds, soft to palpation, non-tender and non-distended Auscultation: hyperactive bowel sounds Extremity normal to inspection, full ROM, normal capillary refill and no clubbing, c yanosis or edema Skin no rashes or lesions noted General Skin Exam: no breakdown and turgor normal Lesions: no lesions Rashes: no rashes Neuro oriented x3, CN's II-XII intact bilaterally, moves all extremities, no focal motor deficits and no sensory deficits noted Sensorium / Orientation: awake and alert Speech: speech normal Motor Exam: Negative for general weakness Psych affect normal Psych Narrative: looks uncomfortable and anxious Mood & Affect: tearful Assessment & Plan Assessment/Plan (1) Intractable vomiting: (2) Gastroenteritis due to norovirus: (3) Marijuana use: PLAN: #Intractable nausea and vomiting due to marijuana use * still having persistent nausea and vomiting; diarrhea has largely resolved. * on phenergan and IV zofran * continue gentle hydration with IVF * GI on board; patient started on scopolamine patch, rectal ompazine and IV reglan * GI recommends starting on low dose xanax * advance diet to soft diet today and advance further as tolerated. * #Diarrhea due to norovirus infection * diarrhea has largely resolved. * will monitor. * encourage oral hydration. * currently on clear liquid diet; advance to soft diet today per patient's request and advance further as tolerated. * #Hypokalemia: Potassium is 3 today. Will replace and trend. #History of marijuana abuse: counseled to quit, especially in light of intractable nausea and vomiting. * DVT prophylaxis:SCDs Charges/Coding Visit Charges Inpatient E&M: 52918 Subs Hosp L2
[2021-07-01] MEDS: Famotidine 200 MG/20 ML MDV 20 MG in 0.9% Normal Saline (Pres. free 8 ML 300 MG IV ×2 (10:48→21:47)
[2021-07-01] MEDS: 0.9% Saline Lock 10 ML Syringe IV ×2 (10:48→21:48)
[2021-07-01] MEDS: Ondansetron 4 MG/2 ML Vial IV ×2 (11:39→21:48)
[2021-07-01 14:58] VITALS: BP 155/103; PULSE 71; RESP 16; TEMP 37.2; O2SAT 100
[2021-07-01 20:19] VITALS: BP 119/72; PULSE 65; RESP 14; TEMP 37.4; O2SAT 99
[2021-07-02] VITALS (12 sets, daily range): BP systolic 105–154; BP diastolic 69–125; PULSE 55–90; RESP 16–18; TEMP 36.6–37.3; O2SAT 97–100; BMI 23.9
--- NOTE | 2021-07-02 | EGD_PTH ---
PATIENT: SYLVIE MERCADO LOC: MS3 U#:[id number] AGE/SX: 35/F ROOM: NV314 RE06/30/[address]: Dr. Lashay Davis MD : 1985 BED: 1 DIS: 07/04/2021 SPEC #: [id number] RECD: 07/02/21 12:46 STATUS: EARNEST REQ #: [id number] ALEN: 07/02/21 00:[address]: Florentin Levy DEPT: SURGICAL PATHOLOGY RECD BY: Keiko Gold ENTERED: 07/02/21 13:10 SP TYPE: EGD BIOPSY OTHR DR: MD Dr. Susy Pacheco MD Dr. Jordan Garrison, Tissues: Esophagus, NOS Procedures: Special Stain Group II Surgery Specimen Level IV Alcian Blue/PAS (control) Comments: @ Ordering doctor for SUIV edited from to @ by CLIFFORD at 07/02/21 152 @ Submitting doctor edited from to @ by RGOOD at 07/02/21 1522 HEADER OPERATION: [place] ([facility] [place] PRE-OP DIAGNOSIS: Intractable vomiting TISSUE SUBMITTED: Distal esophagus biopsy MICROSCOPIC DIAGNOSIS Distal esophagus, biopsy: Gastroesophageal junction with mild chronic inflammation. Focal goblet cell metaplasia. No evidence of dysplasia. See comment. AM:kari 07/03/2021 COMMENT Immunohistochemistry ([id number]) for P53 and Ki-67 will be performed and results will be reported separately. Alcian blue/PAS stain with matched control supports the above diagnosis. MICROSCOPIC DESCRIPTION Slides are reviewed. GROSS DESCRIPTION Received in fixative is one container labeled with the patient's name and designated biopsy distal esophagus. The specimen consists of two irregular fragments of light hernández soft tissue that in aggregate measure 0.6 x 0.6 x 0.1 cm. The specimen is totally submitted in one cassette. / SJ:kari 07/02/2021 TC:3 CPT: 32482, 06806
--- NOTE | 2021-07-02 | IMM_PTH ---
PATIENT: SYLVIE MERCADO LOC: MS3 U#:[id number] AGE/SX: 35/F ROOM: IL314 RE06/30/[address]: Dr. Lashay Davis MD : 1985 BED: 1 DIS: 07/04/2021 SPEC #: [id number] RECD: 07/03/21 14:22 STATUS: SOUWilfredo REQ #: [id number] ALEN: 07/02/21 00:[address]: Lashay Davis DEPT: IMMUNOHISTOCHEMISTRY RECD BY: Nia Blood ENTERED: 07/03/21 14:23 SP TYPE: IMMUNO OTHR DR: MD Dr. Sergio Winston, DO Dr. Florentin Levy, DO Tissues: Esophagus, NOS Procedures: P53 (initial) KI-67 (add) PHYSICIAN & INSTITUTION [facility] [phone] SPECIMEN INFORMATION: Tissue Source: Distal esophagus biopsy Clinical Info: Intractable vomiting Specimen Number: [id number] CPT code: 34609, 20792 METHODOLOGY: Deparaffinized sections of prefer/formalin-fixed tissue or PAP/DQ stained slides are incubated with monoclonal/polyclonal antibodies/oligonucleotide probes. Localization is made via biotin free immunoperoxidase method. Appropriate controls are performed and reacted as expected. Results on target cell population are indicated in the following table: RESULTS: ANTIBODY / CLONE RESULT P53 (DO-7) negative Ki-67 (30-9) positive, low These tests were developed and their performance characteristics determined by [facility]. They may not have been cleared or approved by the U.S. Food and Drug Administration. The FDA has determined that such clearance or approval is not necessary. The above immunohistochemical/dualISH markers are ordered and reviewed by the Pathologist. INTERPRETATION: Distal esophagus, biopsy: No evidence of dysplasia. AM:kari 07/04/2021
[2021-07-02] MEDS: 0.9% Saline Lock 10 ML Syringe IV ×5 (00:35→22:10)
[2021-07-02] MEDS: Metoclopramide 10 MG/2 ML Vial 5 MG IV ×4 (00:35→19:44)
[2021-07-02] MEDS: 0.9% Normal Saline 1,000 ML 125 ML IV ×3 (00:36→12:29)
[2021-07-02] MEDS: proCHLORPERazine 25 MG Suppos. RC ×2 (03:04→21:26)
[2021-07-02 06:24] LABS: Absolute Lymphocyte Count 2.19 X10^3/uL (0.83-4.51); Absolute Neutrophil Count 5.1 X10^3/uL (2.0-7.7); Basophil# 0.02 X10^3/uL; Basophil% 0.2 % (0-1); Eosinophil# 0.14 X10^3/uL; Eosinophils% 1.7 % (0-5); Hematocrit 35.5 % (37-47); Hemoglobin 12.2 g/dL (12.0-15.0); Lymphocyte # 2.19 X10^3/ul (0.83-4.51); Lymphocyte % 27.2 % (19-41); Mean Corp Hgb Conc 34.4 g/dL (32-36); Mean Corpuscular Hgb 28.4 pg (27.0-32.0); Mean Corpuscular Volume 82.8 fL (81-99); Mean Platelet Vol. 8.9 fl (6.2-12.0); Monocyte# 0.56 X10^3/uL; Monocyte% 6.9 % (0-10); NRBC Flagged by Analyzer 0 % (0-5); Neutrophil # 5.13 X10^3/uL (2.7-7.7); Neutrophil % 63.8 % (47-70); Platelet Count 248 K/mm3 (150-450); RBC Distribution Width CV 11.3 % (11.6-14.6); RBC Distribution Width SD 33.9 fl (35.1-43.9); Red Blood Count 4.29 M/mm3 (4.2-5.4); White Blood Count 8.1 K/mm3 (4.4-11.0)
[2021-07-02 06:50] LABS: Anion Gap 7 (5-15); BUN 6 mg/dL (7-18); BUN/Creat Ratio 8.1 RATIO (10-20); Calcium,Total 8.2 mg/dL (8.5-10.1); Chloride 105 mmol/L (98-107); Creatinine, Serum 0.74 mg/dL (0.55-1.02); EST Glomerular Filtration Rate 95 mL/min (>60); Est Glom Filt Rate - Afr Amer 114 mL/min (>60); Estimated Creatinine Clearance 84.72 ml/min; Glucose 103 mg/dL (74-106); Potassium 3.2 mmol/L (3.5-5.1); Sodium Level 136 mmol/L (136-145)
[2021-07-02] MEDS: Ondansetron 4 MG/2 ML Vial IV ×2 (09:07→17:53)
[2021-07-02] MEDS: Famotidine 200 MG/20 ML MDV 20 MG in 0.9% Normal Saline (Pres. free 8 ML 300 MG IV ×2 (09:07→22:11)
[2021-07-02] MEDS: Potassium Chloride 10mEq/100mL 10 MEQ/100 ML IV.SOLN. 100 MEQ IV BOLUS (09:15)
--- NOTE | 2021-07-02 10:03 | PN.HOSP_ITS ---
Subjective Subjective Follow-up on gastroenteritis/intractable nausea and vomiting: Patient was seen and examined. She is waiting on EGD. Complains of nausea with some episodes of vomiting. No hematemesis. She has had 1 bowel movement that was slightly loose otherwise she denies any abdominal cramps. No fevers or chills. Objective Data Objective Data Vital Signs: Vital Signs Temp Pulse Resp BP Pulse Ox 98.1 F 62 18 105/76 98 07/02/21 09:04 07/02/21 09:04 07/02/21 09:04 07/02/21 09:04 07/02/21 09:04 Oxygen Delivery Method Room Air Weight: 61.3 kg Body Mass Index (BMI) 22.6 Intake & Output: Intake and Output for Last 24 Hours 06/30/21 07/01/21 07/02/21 23:59 23:59 23:59 Intake Total 3017.92 / 3017.92 4003.33 / 4003.33 2009 Output Total 200 / 200 400 / 400 Balance 2817.92 / 2817.92 3603.33 / 3603.33 2009 Lab / Micro Data Result Diagrams: 07/02/21 05:16 07/02/21 05:16 Labs: Laboratory Results - last 24 hr 07/02/21 05:16: WBC 8.1, RBC 4.29, Hgb 12.2, Hct 35.5 L, MCV 82.8, MCH 28.4, MC HC 34.4, RDW Std Deviation 33.9 L, RDW Coeff of Fabian 11.3 L, Plt Count 248, MPV 8.9, Immature Gran % (Auto) 0.200, Neut % (Auto) 63.8, Lymph % (Auto) 27.2, [place] % (Auto) 6.9, Eos % (Auto) 1.7, Baso % (Auto) 0.2, Absolute Neuts (auto) 5.1, Absolute Lymphs (auto) 2.19, Nucleated RBC % 0 07/02/21 05:16: Sodium 136, Potassium 3.2 L, Chloride 105, Carbon Dioxide 24.0, Anion Gap 7, BUN 6 L, Creatinine 0.74, Estim Creat Clear Calc 84.72, Est GFR (MDRD) Af Amer 114, Est GFR (MDRD) Non-Af 95, BUN/Creatinine Ratio 8.1 L, Glucose 103, Calcium 8.2 L Micro: Microbiology 06/27/21 07:50 Stool Enteric Bacteriology - Final Norovirus 06/27/21 07:50 Stool C. difficile DNA Amplification - Final Physical Exam Narrative Physical exam: General: Alert, Oriented x3, Cooperative, No apparent distress, Well developed HEENT: Atraumatic Oral: Moist Mucosa Neck: Supple Lungs: Clear to auscultation Cardiovascular: HS I+II, regular, no murmurs Abdomen: Bowel Sounds Present, Soft, Non Tender Extremities: No edema Assessment & Plan Assessment/Plan (1) Intractable vomiting: (2) Gastroenteritis due to norovirus: (3) Marijuana use: PLAN: 1. Acute intractable nausea and vomiting likely related to cyclical vomiting syndrome Patient is going for EGD today on account of persistent vomiting Continue on Haldol, Reglan, scopolamine, rectal compazine Continue on gentle IVF 2. Acute norovirus diarrhea, resolved 3. Hypokalemia, replaced 4. Marijuana abuse, counseled to quit 5. DVT prophylaxis:SCDs Charges/Coding Visit Charges Inpatient E&M: 38025 Subs Hosp L2
--- NOTE | 2021-07-02 11:29 | OP.EGD_ITS ---
Patient Name: Fadia Pineda Procedure Date: 07/02/2021 11:05 AM Date of : 1985 Age: 35 Procedure: Upper GI endoscopy Indications: Failure to respond to medical treatment Providers: Florentin Levy DO Medicines: See the Anesthesia note for documentation of the administered medications Patient Profile: This is a 35 year old female. Refer to note in patient chart for documentation of history and physical. Patient has symptoms of chronic nausea. Complications: No immediate complications. Procedure: Pre-Anesthesia Assessment: - Prior to the procedure, a History and Physical was performed, and patient medications and allergies were reviewed. The risks and benefits of the procedure and the sedation options and risks were discussed with the patient. All questions were answered and informed consent was obtained. Patient identification and proposed procedure were verified by the physician in the pre-procedure area. Mental Status Examination: alert and oriented. Airway Examination: normal oropharyngeal airway and neck mobility. Respiratory Examination: clear to auscultation. CV Examination: normal. Prophylactic Antibiotics: The patient does not require prophylactic antibiotics. Prior Anticoagulants: The patient has taken no previous anticoagulant or antiplatelet agents. ASA Grade Assessment: II - A patient with mild systemic disease. After reviewing the risks and benefits, the patient was deemed in satisfactory condition to undergo the procedure. The anesthesia plan was to use moderate sedation / analgesia (conscious sedation). Immediately prior to administration of medications, the patient was re-assessed for adequacy to receive sedatives. The heart rate, respiratory rate, oxygen saturations, blood pressure, adequacy of pulmonary ventilation, and response to care were monitored throughout the procedure. The physical status of the patient was re-assessed after the procedure. After obtaining informed consent, the endoscope was passed under direct vision. Throughout the procedure, the patient's blood pressure, pulse, and oxygen saturations were monitored continuously. The Endoscope was introduced through the mouth, and advanced to the second part of duodenum. The upper GI endoscopy was accomplished without difficulty. The patient tolerated the procedure well. Moderate Sedation: Moderate (conscious) sedation was administered by the endoscopy nurse and supervised by the endoscopist. The following parameters were monitored: oxygen saturation, heart rate, blood pressure, and response to care. Total physician intraservice time was 15 minutes. Scope In: 11:15:26 AM Scope Out: 11:24:11 AM Total Procedure Duration Time 0 hours 8 minutes 45 seconds Findings: LA Grade A (one or more mucosal breaks less than 5 mm, not extending between tops of 2 mucosal folds) esophagitis with no bleeding was found 38 to 40 cm from the incisors. Biopsies were taken with a cold forceps for histology. Verification of patient identification for the specimen was done. Estimated blood loss was minimal. A small hiatal hernia was present. The entire examined stomach was normal. The second portion of the duodenum was normal. Impression: - LA Grade A reflux esophagitis. Biopsied. - Small hiatal hernia. - Normal stomach. - Normal second portion of the duodenum. Recommendation: -Return to the floors - Resume previous diet. - Continue present medications. - Await pathology results. Procedure Code(s): --- Professional --- 28835, Esophagogastroduodenoscopy, flexible, transoral; with biopsy, single or multiple 18085, 59, Moderate sedation services provided by the same physician or other qualified health interior plant caretaker performing the diagnostic or therapeutic service that the sedation supports, requiring the presence of an independent trained observer to assist in the monitoring of the patient's level of consciousness and physiological status; initial 15 minutes of intraservice time, patient age 5 years or older CPT copyright 2017 [employer]. All rights reserved. The codes documented in this report are preliminary and upon farm operator review may be revised to meet current compliance requirements. Florentin Levy DO 07/02/2021 11:29:19 AM This report has been signed electronically. Number of Addenda: 1 Note Initiated On: 07/02/2021 11:05 AM Addendum Number: 1 Addendum Date: 12/20/2021 6:40:47 AM MAC was used as sedation for this procedure. Florentin Levy DO 12/20/2021 6:40:51 AM This report has been signed electronically.
--- NOTE | 2021-07-02 11:30 | OP.CCLET_ITS ---
12/20/2021 Sergio Grover [address] [place] [address] Re : Upper GI endoscopy procedure for Fadia Pineda Dear Dr. Grover This procedure was performed on Friday, July 02, 2021. My impressions and recommendations are as follows: Impressions : - LA Grade A reflux esophagitis. Biopsied. - Small hiatal hernia. - Normal stomach. - Normal second portion of the duodenum. Recommendations : -Return to the floors - Resume previous diet. - Continue present medications. - Await pathology results. My findings are described in the full procedure note, which is enclosed. If I can be of further assistance, please feel free to contact me at . Sincerely, Florentin Levy, 07/02/2021 11:29:19 AM This report has been signed electronically.
[2021-07-02] MEDS: Potassium Chloride 10mEq/100mL 10 MEQ/100 ML IV.SOLN. 15 MEQ IV BOLUS (11:58)
[2021-07-02] MEDS: Potassium Chloride 10mEq/100mL 10 MEQ/100 ML IV.SOLN. 50 MEQ IV BOLUS ×2 (14:07→16:36)
[2021-07-02] MEDS: 0.9% Normal Saline 1,000 ML 100 ML IV (23:21)
[2021-07-03] MEDS: Metoclopramide 10 MG/2 ML Vial 5 MG IV ×2 (01:01→05:44)
[2021-07-03] MEDS: 0.9% Saline Lock 10 ML Syringe IV ×7 (01:01→21:28)
[2021-07-03 03:05] VITALS: BP 109/69; PULSE 76; RESP 16; TEMP 37; O2SAT 97
[2021-07-03 06:16] LABS: Absolute Lymphocyte Count 3.37 X10^3/uL (0.83-4.51); Absolute Neutrophil Count 5.6 X10^3/uL (2.0-7.7); Basophil# 0.02 X10^3/uL; Basophil% 0.2 % (0-1); Eosinophil# 0.21 X10^3/uL; Eosinophils% 2.1 % (0-5); Hematocrit 33.4 % (37-47); Hemoglobin 11.6 g/dL (12.0-15.0); Lymphocyte # 3.37 X10^3/ul (0.83-4.51); Lymphocyte % 33.7 % (19-41); Mean Corp Hgb Conc 34.7 g/dL (32-36); Mean Corpuscular Hgb 28.9 pg (27.0-32.0); Mean Corpuscular Volume 83.1 fL (81-99); Mean Platelet Vol. 8.9 fl (6.2-12.0); Monocyte# 0.75 X10^3/uL; Monocyte% 7.5 % (0-10); NRBC Flagged by Analyzer 0 % (0-5); Neutrophil # 5.61 X10^3/uL (2.7-7.7); Neutrophil % 56.2 % (47-70); Platelet Count 253 K/mm3 (150-450); RBC Distribution Width CV 11.7 % (11.6-14.6); RBC Distribution Width SD 35.2 fl (35.1-43.9); Red Blood Count 4.02 M/mm3 (4.2-5.4)
[2021-07-03 06:44] LABS: ALB/GLOB Ratio 1.2 RATIO (0.9-2.4); AST(SGOT) 10 U/L (15-37); Alanine Aminotransfer ALT/SGPT 18 U/L (13-56); Albumin, Serum 3.3 g/dL (3.2-5.0); Alkaline Phosphatase 50 U/L (45-117); Anion Gap 7 (5-15); BUN 8 mg/dL (7-18); Calcium,Total 8.1 mg/dL (8.5-10.1); Chloride 105 mmol/L (98-107); EST Glomerular Filtration Rate 87 mL/min (>60); Est Glom Filt Rate - Afr Amer 105 mL/min (>60); Estimated Creatinine Clearance 78.37 ml/min; Globulin 2.8 g/dL (2.2-4.2); Glucose 82 mg/dL (74-106); Potassium 3.3 mmol/L (3.5-5.1); Protein, Total 6.1 g/dL (6.4-8.2); Sodium Level 138 mmol/L (136-145)
[2021-07-03] MEDS: Ondansetron 4 MG/2 ML Vial IV (08:22)
[2021-07-03 08:25] VITALS: BP 140/85; PULSE 73; RESP 20; TEMP 36.7; O2SAT 100
[2021-07-03] MEDS: Scopolamine 1mg/72hr Patch 1 PATCH TD (08:42)
[2021-07-03] MEDS: Famotidine 200 MG/20 ML MDV 20 MG in 0.9% Normal Saline (Pres. free 8 ML 300 MG IV ×2 (08:42→21:28)
[2021-07-03] MEDS: Potassium Chloride 10mEq/100mL 10 MEQ/100 ML IV.SOLN. 100 MEQ IV BOLUS ×4 (09:56→14:06)
[2021-07-03] MEDS: 0.9% Normal Saline 1,000 ML 100 ML IV ×2 (09:57→20:01)
[2021-07-03] MEDS: hydrOXYzine PAM 25 MG Capsule 50 MG PO ×2 (11:05→21:28)
[2021-07-03] MEDS: Dicyclomine 10 MG Capsule 20 MG PO ×2 (11:05→21:28)
[2021-07-03] MEDS: Metoclopramide 10 MG/2 ML Vial IV ×2 (12:48→18:17)
--- NOTE | 2021-07-03 13:54 | PCM.PN.HOSP ---
Subjective Subjective Follow-up on gastroenteritis/intractable nausea and vomiting: Patient was seen and examined. She complains of severe vomiting and nausea. Vomitus is yellowish-green. Patient was on a regular diet, discussed that we will go back to clear liquid diet and work our way up. I counseled her on quitting marijuana again. She admits that she knows she has to quit. Objective Data Objective Data Vital Signs: Vital Signs Temp Pulse Resp BP Pulse Ox 98.0 F 73 20 H 140/85 H 100 07/03/21 08:25 07/03/21 08:25 07/03/21 08:25 07/03/21 08:25 07/03/21 08:25 Oxygen Delivery Method Room Air Weight: 58.1 kg Body Mass Index (BMI) 23.9 Intake & Output: Intake and Output for Last 24 Hours 07/01/21 07/02/21 07/03/21 23:59 23:59 23:59 Intake Total 4003.33 / 4003.33 3885.58 / 3885.58 1210 / 1210 Output Total 400 / 400 600 / 600 Balance 3603.33 / 3603.33 3285.58 / 3285.58 1210 / 1210 Lab / Micro Data Result Diagrams: 07/03/21 05:31 07/03/21 05:31 Labs: Laboratory Results - last 24 hr 07/03/21 05:31: WBC 10.0, RBC 4.02 L, Hgb 11.6 L, Hct 33.4 L, MCV 83.1, MCH 28.9, MCHC 34.7, RDW Std Deviation 35.2, RDW Coeff of Fabian 11.7, Plt Count 253, MPV 8.9, Immature Gran % (Auto) 0.300, Neut % (Auto) 56.2, Lymph % (Auto) 33.7, [place] % (Auto) 7.5, Eos % (Auto) 2.1, Baso % (Auto) 0.2, Absolute Neuts (auto) 5.6, Absolute Lymphs (auto) 3.37, Nucleated RBC % 0 07/03/21 05:31: Sodium 138, Potassium 3.3 L, Chloride 105, Carbon Dioxide 26.0, Anion Gap 7, BUN 8, Creatinine 0.80, Estim Creat Clear Calc 78.37, Est GFR (MDRD) Af Amer 105, Est GFR (MDRD) Non-Af 87, BUN/Creatinine Ratio 10.0, Glucose 82, Calcium 8.1 L, Total Bilirubin 0.50, AST 10 L, ALT 18, Alkaline Phosphatase 50, Total Protein 6.1 L, Albumin 3.3, Globulin 2.8, Albumin/Globulin Ratio 1.2 Micro: Microbiology 07/02/21 10:20 Nasal Secretion SARS-CoV-2 Antigen (Rapid) - Final 06/27/21 07:50 Stool Enteric Bacteriology - Final Norovirus 06/27/21 07:50 Stool C. difficile DNA Amplification - Final Physical Exam Narrative Physical exam: General: Alert, Oriented x3, Cooperative, No apparent distress, Well developed HEENT: Atraumatic Oral: Moist Mucosa Neck: Supple Lungs: Clear to auscultation Cardiovascular: HS I+II, regular, no murmurs Abdomen: Bowel Sounds Present, Soft, Non Tender Extremities: No edema Assessment & Plan Assessment/Plan (1) Intractable vomiting: (2) Gastroenteritis due to norovirus: (3) Marijuana use: PLAN: 1. Acute intractable nausea and vomiting likely related to cyclical vomiting syndrome, improved EGD had shown some esophagitis, otherwise unremarkable Continue on Haldol, Reglan, scopolamine, rectal compazine Continue on gentle IVF 2. Acute norovirus diarrhea, resolved 3. Hypokalemia, replaced 4. Marijuana abuse, counseled to quit 5. DVT prophylaxis:SCDs Charges/Coding Visit Charges Inpatient E&M: 13094 Subs Hosp L2
[2021-07-03 15:59] VITALS: BP 111/74; PULSE 68; RESP 18; TEMP 36.7; O2SAT 96
[2021-07-03] MEDS: traZODone 100 MG Tablet PO (21:28)
[2021-07-03 22:00] VITALS: BP 116/75; PULSE 62; RESP 18; TEMP 37.1; O2SAT 100
[2021-07-04] MEDS: Metoclopramide 10 MG/2 ML Vial IV ×2 (00:07→04:57)
[2021-07-04] MEDS: 0.9% Saline Lock 10 ML Syringe IV ×3 (00:07→07:46)
[2021-07-04 02:25] VITALS: BP 99/69; PULSE 62; RESP 18; TEMP 37.1; O2SAT 98
[2021-07-04] MEDS: Dicyclomine 10 MG Capsule 20 MG PO (04:54)
[2021-07-04] MEDS: hydrOXYzine PAM 25 MG Capsule 50 MG PO (04:54)
[2021-07-04] MEDS: 0.9% Normal Saline 1,000 ML 100 ML IV (05:24)
[2021-07-04 06:01] LABS: Absolute Lymphocyte Count 3.54 X10^3/uL (0.83-4.51); Absolute Neutrophil Count 4.6 X10^3/uL (2.0-7.7); Basophil# 0.03 X10^3/uL; Basophil% 0.3 % (0-1); Eosinophil# 0.28 X10^3/uL; Eosinophils% 3.1 % (0-5); Hematocrit 33.1 % (37-47); Hemoglobin 11.4 g/dL (12.0-15.0); Lymphocyte # 3.54 X10^3/ul (0.83-4.51); Lymphocyte % 38.7 % (19-41); Mean Corp Hgb Conc 34.4 g/dL (32-36); Mean Corpuscular Hgb 28.7 pg (27.0-32.0); Mean Corpuscular Volume 83.4 fL (81-99); Mean Platelet Vol. 8.8 fl (6.2-12.0); Monocyte# 0.69 X10^3/uL; Monocyte% 7.5 % (0-10); NRBC Flagged by Analyzer 0 % (0-5); Neutrophil # 4.57 X10^3/uL (2.7-7.7); Neutrophil % 50.1 % (47-70); Platelet Count 246 K/mm3 (150-450); RBC Distribution Width CV 11.4 % (11.6-14.6); RBC Distribution Width SD 34.5 fl (35.1-43.9); Red Blood Count 3.97 M/mm3 (4.2-5.4); White Blood Count 9.1 K/mm3 (4.4-11.0)
[2021-07-04 06:19] LABS: ALB/GLOB Ratio 1.2 RATIO (0.9-2.4); AST(SGOT) 9 U/L (15-37); Alanine Aminotransfer ALT/SGPT 17 U/L (13-56); Albumin, Serum 3.2 g/dL (3.2-5.0); Alkaline Phosphatase 49 U/L (45-117); Anion Gap 6 (5-15); BUN 7 mg/dL (7-18); Calcium,Total 7.8 mg/dL (8.5-10.1); Chloride 106 mmol/L (98-107); Creatinine, Serum 0.88 mg/dL (0.55-1.02); EST Glomerular Filtration Rate 78 mL/min (>60); Est Glom Filt Rate - Afr Amer 94 mL/min (>60); Estimated Creatinine Clearance 71.24 ml/min; Globulin 2.6 g/dL (2.2-4.2); Glucose 116 mg/dL (74-106); Potassium 3.2 mmol/L (3.5-5.1); Protein, Total 5.8 g/dL (6.4-8.2); Sodium Level 137 mmol/L (136-145)
[2021-07-04 07:27] VITALS: BP 118/77; PULSE 56; TEMP 36.8; O2SAT 98
[2021-07-04] MEDS: Potassium Chloride 10mEq/100mL 10 MEQ/100 ML IV.SOLN. 100 MEQ IV BOLUS ×4 (07:46→11:17)
[2021-07-04 07:52] VITALS: BP 101/68; PULSE 64; RESP 16; TEMP 36.8; O2SAT 99
[2021-07-04] MEDS: Famotidine 200 MG/20 ML MDV 20 MG in 0.9% Normal Saline (Pres. free 8 ML 300 MG IV (09:56)
--- NOTE | 2021-07-04 10:17 | PCM.DC ---
Discharge Instructions Diet Discharge Diet: No restrictions Activity Discharge Activity: Return to Normal Activity Follow Up Care Test Results: Test results from this visit will be discussed in further detail at your follow-up appointment, if applicable. Discharge Plan Admission Admit Date/Time: 06/30/21 09:00 Primary Reason for Your Visit: Acute intractable nausea and vomiting Attending Provider: Lashay Davis Primary Care Provider: Sergio Grover Instructions Additional Instructions / Restrictions: You are strongly advised to follow-up with the counseling center for treatment of anxiety. You are strongly advised to stay away from marijuana use. You will need to follow-up with your primary care doctor within a week for repeat blood work to follow-up on low potassium levels. Discharge Orders/Prescriptions Prescriptions: New potassium chloride [Klor-Con M20] 20 mEq tablet,ER particles/crystals 20 meq PO DAILY 5 Days Qty: 5 RF: 0 Continued promethazine 25 MG tablet 25 mg PO Q6H PRN PRN (Reason: Nausea) Qty: 10 RF: 0 ondansetron 4 mg tablet,disintegrating 4 mg PO Q8H PRN PRN (Reason: Nausea) Qty: 14 RF: 0 Referrals / Follow Up: Sergio Grover DO [Primary Care Provider] - Disposition Disposition (needs filled in before D/C Order can be placed): Home, Self Care
--- NOTE | 2021-07-04 10:21 | PCM.DC.SUM ---
Providers Date of Admission: 06/30/21 Date of Discharge: 07/04/21 Primary Care Physician: Dr. Sergio Grover, Reason For Visit: N/V/D Diagnosis Discharge Diagnosis (1) Intractable vomiting: Status: Resolved Code(s): R11.10 - Vomiting, unspecified (2) Gastroenteritis due to norovirus: Status: Resolved Code(s): A08.11 - Acute gastroenteropathy due to [place] agent (3) Marijuana use: Status: Chronic Code(s): F12.10 - Cannabis abuse, uncomplicated (4) Hypokalemia: Status: Acute Code(s): E87.6 - Hypokalemia Medications at Discharge Home Medications promethazine 25 mg PO Q6H PRN PRN #10 tab 06/14/20 ondansetron 4 mg PO Q8H PRN PRN #14 tab 02/23/21 potassium chloride [Klor-Con M20] 20 meq PO DAILY 5 Days #5 tab 07/04/21 Hospital Course Operations None Procedures None Summary of Care Provided Minutes Spent on Discharge: 35 Hospital Course: 35-year-old female with past medical history of chronic marijuana use who comes in with intractable nausea vomiting and diarrhea. Patient was admitted to the [facility] floor, her stool studies was positive for norovirus. She continued to have intractable nausea and vomiting. Gastroenterology was consulted. Changes were made to her antiemetics. Her vomiting persisted and she subsequently underwent EGD on 07/02/21 that showed reflux esophagitis grade 8 that was biopsied, small hiatal hernia, normal stomach, normal second portion of duodenum. Patient was monitored for an hour after her procedure. She had normal nausea and vomiting. She had hypokalemia throughout his hospital stay as well as hypomagnesemia that was replaced. Patient was discharged home with 5 days of oral potassium, she will follow-up with her primary care doctor within 1 week for repeat blood work. She was strongly counseled to stop using marijuana. She was advised to go to the counseling center for treatment for anxiety. Physical Exam Narrative Physical exam: General: Alert, Oriented x3, Cooperative, No apparent distress HEENT: Atraumatic Oral: Moist Mucosa Neck: Supple Lungs: Clear to auscultation Cardiovascular: HS I+II, regular, no murmurs Abdomen: Bowel Sounds Present, Soft, Non Tender Extremities: No edema Weight / BMI Weight Weight: 58.5 kg Body Mass Index (BMI) 23.9 ABG / Lab / Microbiology Data Result Diagrams: 07/04/21 05:21 07/04/21 05:21 Laboratory: Laboratory Results - last 24 hr 07/04/21 05:21: WBC 9.1, RBC 3.97 L, Hgb 11.4 L, Hct 33.1 L, MCV 83.4, MCH 28.7, MCHC 34.4, RDW Std Deviation 34.5 L, RDW Coeff of Fabian 11.4 L, Plt Count 246, MPV 8.8, Immature Gran % (Auto) 0.300, Neut % (Auto) 50.1, Lymph % (Auto) 38.7, [place] % (Auto) 7.5, Eos % (Auto) 3.1, Baso % (Auto) 0.3, Absolute Neuts (auto) 4.6, Absolute Lymphs (auto) 3.54, Nucleated RBC % 0 07/04/21 05:21: Sodium 137, Potassium 3.2 L, Chloride 106, Carbon Dioxide 25.0, Anion Gap 6, BUN 7, Creatinine 0.88, Estim Creat Clear Calc 71.24, Est GFR (MDRD) Af Amer 94, Est GFR (MDRD) Non-Af 78, BUN/Creatinine Ratio 8.0 L, Glucose 116 H, Calcium 7.8 L, Total Bilirubin 0.40, AST 9 L, ALT 17, Alkaline Phosphatase 49, Total Protein 5.8 L, Albumin 3.2, Globulin 2.6, Albumin/Globulin Ratio 1.2 Microbiology: Microbiology 07/02/21 10:20 Nasal Secretion SARS-CoV-2 Antigen (Rapid) - Final 06/27/21 07:50 Stool Enteric Bacteriology - Final Norovirus 06/27/21 07:50 Stool C. difficile DNA Amplification - Final D/C Instructions Discharge Diet: No restrictions Meaningful Use Info Meaningful Use Diagnoses (Choose all that apply): None applicable Discharge Plan Admission Admit Date/Time: 06/30/21 09:00 Primary Reason for Your Visit: Acute intractable nausea and vomiting Attending Provider: Lashay Davis Primary Care Provider: Sergio Grovre Instructions Additional Instructions / Restrictions: You are strongly advised to follow-up with the [facility] center for treatment of anxiety. You are strongly advised to stay away from marijuana use. You will need to follow-up with your primary care doctor within a week for repeat blood work to follow-up on low potassium levels. Discharge Orders/Prescriptions Prescriptions: New potassium chloride [Klor-Con M20] 20 mEq tablet,ER particles/crystals 20 meq PO DAILY 5 Days Qty: 5 RF: 0 Continued promethazine 25 MG tablet 25 mg PO Q6H PRN PRN (Reason: Nausea) Qty: 10 RF: 0 ondansetron 4 mg tablet,disintegrating 4 mg PO Q8H PRN PRN (Reason: Nausea) Qty: 14 RF: 0 Referrals / Follow Up: Sergio Grover DO [Primary Care Provider] - Disposition Disposition (needs filled in before D/C Order can be placed): Home, Self Care Charges/Coding Visit Charges Inpatient E&M: 23038 Disch Hosp
--- NOTE | 2021-07-04 11:09 | CASEMGMT ---
Social Work Note SW reviewed chart. Pt with Cyclical Vomiting Syndrome and Marijuana use. SW in to speak with pt. SW introduced self and role at [facility]. Pt is alert and orientated. SW spoke with pt regarding Marijuana use and asked if she would like any resources. Pt states she would like counseling resources for [facility]. SW provided pt with Counseling Resources for [facility]. Pt thanked this worker, denied additional needs or concerns at this time. Pearl Hernandez CENTERLESS GRINDER, PLATING TANK OPERATOR APPRENTICE
[2021-07-04 13:34] VITALS: BP 106/76; PULSE 65; RESP 16; TEMP 36.7; O2SAT 100
== END 2021-07-04 13:55 | disposition home or self-care (01) | DRG 249 ==
LOC: ED 19:08 → MS3 20:46
PROVIDERS: Internal Medicine Gastroenterology; Student in an Organized Health Care Education/Training Program; Admitting Provider Family Medicine; Emergency Provider Emergency Medicine; PCP Student in an Organized Health Care Education/Training Program; Visit Provider Internal Medicine
PROC: 0DJ08ZZ Inspection of Upper Intestinal Tract, Via Natural or Artificial Opening Endoscopic (ICD-10-PCS; CPT 43235; principal; 2021-07-02 14:40)
DX: A08.11 Acute gastroenteropathy due to Norwalk agent (principal); E83.42 Hypomagnesemia; E87.6 Hypokalemia; F12.10 Cannabis abuse, uncomplicated; K44.9 Diaphragmatic hernia without obstruction or gangrene; R11.15 Cyclical vomiting syndrome unrelated to migraine; R03.0 Elevated blood-pressure reading, without diagnosis of hypertension; R73.9 Hyperglycemia, unspecified; K21.00 Gastro-esophageal reflux disease with esophagitis, without bleeding; Z87.891 Personal history of nicotine dependence; Z86.16 Personal history of COVID-19
CPT/HCPCS: 36415; 80048; 80053; 80076; 80307; 83690; 84703; 85025; 87426; 87493; 87506; 88305; 88313; 88341; 88342; 99284; J7030; J7050; A4216; J2405; J3490

== ENCOUNTER → 2022-04-30 | Outpatient (CLI) | payer MEDICAID, SELFPAY ==
--- NOTE | 2022-04-30 | TONS_PTH ---
PATIENT: SYLVIE MERCADO LOC: TRUE U#:[id number] AGE/SX: 36/F ROOM: RE04/30/[address]: Dr. Rosales Hoffmann MD : 1985 BED: DIS: 04/30/2022 SPEC #: [id number] RECD: 04/30/22 14:34 STATUS: AERNEST HARTMANLeeroy #: [id number] ALEN: 04/30/22 00:[address]: Rosales Hoffmann DEPT: SURGICAL PATHOLOGY RECD BY: Jose Romero ENTERED: 05/01/22 08:36 SP TYPE: TONSILS OTHR DR: Dr. Sergio Grover, [facility] Tissues: Tonsil, NOS Procedures: Surgery Specimen Level III HEADER OPERATION: Tonsillectomy PRE-OP DIAGNOSIS: Chronic tonsillitis TISSUE SUBMITTED: Tonsils, right pinned MICROSCOPIC DIAGNOSIS Right tonsil, tonsillectomy: Benign lymphoid follicular hyperplasia. Left tonsil, tonsillectomy: Benign lymphoid follicular hyperplasia. AM:kari 05/02/2022 MICROSCOPIC DESCRIPTION Slides are reviewed. GROSS DESCRIPTION Received is one container labeled with the patient's name and designated tonsils - pin on right are two tonsils that in aggregate weigh 6.1 gm. The right tonsil has a pin on it and measures 2.5 x 1.5 x 1 cm. The left tonsil measures 2.5 x 1.5 x 1.5 cm. Both tonsils are similar in appearance. The external surfaces are pink-hernández, smooth, glistening and somewhat lobulated. Focally they are hemorrhagic, granular and bear cautery artifact. Serial cross sections through the tonsils reveal normal tonsillar architecture. Sections are submitted in two cassettes as follows: 1 - right tonsil, 2 - left tonsil. / PRAFUL:kari 05/01/2022 TC:5 CPT: 24408 x2
== END | disposition home or self-care (01) ==
LOC: LABSPEC 15:12
PROVIDERS: PCP Student in an Organized Health Care Education/Training Program; Visit Provider Otolaryngology
DX: J35.01 Chronic tonsillitis (principal)
CPT/HCPCS: 88304

== ENCOUNTER 2022-05-07 06:38 | Emergency (ER) | payer MEDICAID, SELFPAY ==
[2022-05-07 06:39] VITALS: BP 151/106; PULSE 96; RESP 18; TEMP 35.7; O2SAT 100; BMI 25.9
--- NOTE | 2022-05-07 07:20 | EDS_ITS ---
HPI History of Present Illness Chief Complaint: Sore Throat Narrative Narrative: 36-year-old female who denies significant past medical history with the exception is that she states that she is approximately 8 days postop tonsillectomy by Dr. Hoffmann with otolaryngology. She states she had a tonsillectomy secondary to frequent pharyngitis/tonsillitis. She has been taking Percocet without relief of her symptoms. She states she is also taking Tylenol. She denies any fevers or chills, she has pain with swallowing. She wants to make sure that her throat is not infected. She denies any postoperative bleeding but has pain with swallowing. She also complains of left ear pain. While she is a smoker, she states she has not smoked after her surgery. [facility] Medical History COVID-19 Cyclic vomiting syndrome Esophageal reflux Former tobacco use Marijuana smoker, episodic Home Medications promethazine 25 mg tablet 25 mg PO Q6H PRN PRN Nausea #10 TABLETS 06/14/20 [Rx Last Taken 02/27/21] ondansetron 4 mg disintegrating tablet 4 mg PO Q8H PRN PRN Nausea #14 tabs 02/23/21 [Rx Last Taken 02/26/21] potassium chloride 20 mEq tablet,extended release(part/cryst) (Klor-Con M) 20 meq PO DAILY 5 days #5 tabs 07/04/21 [Rx Last Taken Unknown] hydrocodone 10 mg-acetaminophen 300 mg/15 mL oral solution (Lortab Elixir) 10 ml PO Q6H PRN pain 3 days #120 mL 05/07/22 [Rx Last Taken Unknown] Allergy/AdvReac Type Severity Reaction Status Date / Time Fish Containing Products Allergy Swelling Verified 05/07/22 06:43 haloperidol [From Haldol] AdvReac Other Verified 05/07/22 06:43 Family History Mother Hypertension Hyperlipidemia Father Hypertension Hyperlipidemia Surgical History Status post cholecystectomy Social History household members: significant other Smoking Status: Former smoker how long ago did patient quit smoking: Quit 15 years prior to current presentation. alcohol intake: never substance use type: marijuana ROS ROS ED ROS Narrative Constitutional: No fever, no chills. HEENT: Positive postoperative sore throat. No neck pain. No loss of vision. No rhinorrhea. Pain with swallowing. Left ear pain. Cardiovascular: No chest pain. No palpitations. No pedal edema. Respiratory: No cough, no shortness of breath. Abdominal: No abdominal pain. No nausea. No vomiting. Genitourinary: No dysuria. No hematuria. Musculoskeletal: No myalgias. No arthralgias. Neurologic: No headaches. No dizziness. No lightheadedness. Skin: No rash. No change in color. Psychiatric: No depression. No anxiety. EXAM Physical Exam Narrative Exam Narrative: Afebrile. Vital signs noted. HEENT: Normocephalic. Atraumatic. PERRL, EOMI. Neck soft and supple. No point tenderness or step off. Inspection of the posterior pharynx visually shows postsurgical changes, no active bleeding. Airway is patent. No drooling or trismus. Left TM may have serous fluid behind it with scarring, but no erythema. No mastoid tenderness. No meningismus. Cardiovascular: Regular rate and rhythm. No murmurs, rubs, or gallops appreciated. Respiratory: No tachypnea. Lungs clear to auscultation bilaterally. Gastrointestinal: Abdomen soft, nontender, with normoactive bowel sounds. No rebound or guarding. Neurological: Awake. Alert. Nonfocal, nonlateralizing. Skin: No rash. Normal color. No pallor. Musculoskeletal: No pedal edema. Full range of motion extremities. Const Vital Signs: 05/07/22 06:39 Temperature 96.2 F L Temperature Source Temporal Pulse Rate 96 Respiratory Rate 18 Blood Pressure 151/106 H Blood Pressure Mean 121 Pulse Ox 100 Oxygen Delivery Method Room Air MDM MDM MDM Narrative Medical decision making narrative: I do feel that she is still having postoperative pain. Patient drove here and states that she is not out of Percocet. I discussed patient with Dr. Hoffmann, and she has follow-up in approximately 2 weeks. He advised giving her Decadron and IV fluids, and is agreeable to a small amount of Lortab elixir written in prescription form. Her airway is patent and her pulse ox is 100% on room air. I do not feel antibiotics are indicated. She was given a prescription for 3 days of Lortab elixir to take 10 mL every 6 hours as needed for pain. While she is doing this for the next 3 days she is not to take any Percocet or liquid acetaminophen. She will follow-up with her senior statistician as scheduled in approximately 13 days. I feel she be discharged safely home with follow-up for her postoperative pain. Return instructions were reviewed. Disposition is discharged home in stable condition. Discharge Plan Triage Chief Complaint: Sore Throat ED Provider: Agustin Ellis Dx/Rx/DC Orders Clinical Impression: Post-operative pain, History of tonsillectomy, Post-tonsillectomy pain Instructions: Taking Opioid Medicines, ED Post Op Wound Check, Pain Prescriptions: New Lortab Elixir 10-300 mg/15 mL solution 10 ml PO Q6H PRN (Reason: pain) 3 Days Qty: 120 0RF No Action promethazine 25 MG tablet 25 mg PO Q6H PRN PRN (Reason: Nausea) Qty: 10 0RF ondansetron 4 mg tablet,disintegrating 4 mg PO Q8H PRN PRN (Reason: Nausea) Qty: 14 0RF potassium chloride [Klor-Con M20] 20 mEq tablet,ER particles/crystals 20 meq PO DAILY 5 Days Qty: 5 0RF Primary Care Provider: Sergio Grover Referrals: Rosales Hoffmann MD [Med Staff - Active Staff] - Keep Jaime appointment Sergio Grover DO [Primary Care Provider] - Activity Restrictions/Additional Instructions: Stop taking the liquid Tylenol and Percocet for the next 3 days while you take your Lortab elixir. When that knows 3 days are complete, return to taking the Percocet as previously directed. Follow-up with Dr. Hoffmann as scheduled. Disposition Disposition: Home, Self Care
[2022-05-07] MEDS: 0.9% Normal Saline 1,000 ML 999 ML IV (07:35)
[2022-05-07] MEDS: dexAMETHasone 10 MG/ML Vial IV (07:35)
[2022-05-07 08:13] VITALS: BP 109/74; PULSE 76; RESP 16; O2SAT 99
== END 2022-05-07 08:15 | disposition home or self-care (01) ==
PROVIDERS: Emergency Provider Emergency Medicine; PCP Student in an Organized Health Care Education/Training Program; Visit Provider Emergency Medicine
DX: J02.9 Acute pharyngitis, unspecified (principal); G89.18 Other acute postprocedural pain; Z87.891 Personal history of nicotine dependence
CPT/HCPCS: 96361; 96374; 99283; J7030

== ENCOUNTER 2022-05-09 03:09 | Day surgery (SDC) | payer MEDICAID, SELFPAY ==
[2022-05-09] VITALS (9 sets, daily range): BP systolic 108–139; BP diastolic 73–104; PULSE 71–90; RESP 16–22; TEMP 36.4–37.3; O2SAT 98–100; BMI 26.1
--- NOTE | 2022-05-09 03:17 | EX.ED.DYSGE1 ---
HPI History of Present Illness Chief Complaint: Sore Throat Narrative Narrative: 36-year-old female status post tonsillectomy by Dr. Hoffmann postoperative day 9. She was seen in the emergency department 2 days ago with postoperative pain and written for liquid analgesics for 3 days. She states that she awoke this morning and was coughing. She noticed bleeding from the back of her throat and states she still feels blood trickling down the back of her throat. She does not take any blood thinners. PFSH PFSH Medical History COVID-19 Cyclic vomiting syndrome Esophageal reflux Former tobacco use Marijuana smoker, episodic Home Medications promethazine 25 mg tablet 25 mg PO Q6H PRN PRN Nausea #10 TABLETS 06/14/20 [Rx Last Taken 02/27/21] ondansetron 4 mg disintegrating tablet 4 mg PO Q8H PRN PRN Nausea #14 tabs 02/23/21 [Rx Last Taken 02/26/21] potassium chloride 20 mEq tablet,extended release(part/cryst) (Klor-Con M) 20 meq PO DAILY 5 days #5 tabs 07/04/21 [Rx Last Taken Unknown] hydrocodone 7.5 mg-acetaminophen 325 mg/15 mL oral solution 10 ml PO Q6H PRN pain 3 days #120 mL 05/07/22 [Rx Last Taken Unknown] Allergy/AdvReac Type Severity Reaction Status Date / Time Fish Containing Products Allergy Swelling Verified 05/09/22 03:13 haloperidol [From Haldol] AdvReac Other Verified 05/09/22 03:13 Family History Mother Hypertension Hyperlipidemia Father Hypertension Hyperlipidemia Surgical History Status post cholecystectomy Social History household members: significant other Smoking Status: Former smoker how long ago did patient quit smoking: Quit 15 years prior to current presentation. alcohol intake: never substance use type: marijuana ROS ROS ED ROS Narrative Constitutional: No fever, no chills. HEENT: Positive postoperative sore throat. Bleeding in the back of throat. No neck pain. No loss of vision. No rhinorrhea. Cardiovascular: No chest pain. No palpitations. No pedal edema. Respiratory: Positive cough, no shortness of breath. Abdominal: No abdominal pain. No nausea. No vomiting. Genitourinary: No dysuria. No hematuria. Musculoskeletal: No myalgias. No arthralgias. Neurologic: No headaches. No dizziness. No lightheadedness. Skin: No rash. No change in color. Psychiatric: No depression. No anxiety. EXAM Physical Exam Narrative Exam Narrative: Afebrile. Vital signs noted. HEENT: Normocephalic. Atraumatic. PERRL, EOMI. Neck soft and supple. No point tenderness or step off. Positive dark red blood in posterior pharynx with suspected clot in area of tonsillar fossa on left. No brisk, bright red blood noted. Cardiovascular: Regular rate and rhythm. No murmurs, rubs, or gallops appreciated. Respiratory: No tachypnea. Lungs clear to auscultation bilaterally. Gastrointestinal: Abdomen soft, nontender, with normoactive bowel sounds. No rebound or guarding. Neurological: Awake. Alert. Nonfocal, nonlateralizing. Skin: No rash. Normal color. No pallor. Musculoskeletal: No pedal edema. Full range of motion extremities. Const Vital Signs: 05/09/22 03:09 05/09/22 03:52 05/09/22 03:54 Temperature 98.2 F 97.6 F L 98.6 F Temperature Source Temporal Oral Oral Pulse Rate 80 74 79 Respiratory Rate 18 17 18 Blood Pressure 114/73 119/82 H 119/82 H Blood Pressure Mean 86 94 94 Blood Pressure Source Monitor Blood Pressure Position Semi-Fowlers Blood Pressure Location Left Arm Pulse Ox 99 100 100 Oxygen Delivery Method Room Air Room Air Room Air MDM MDM MDM Narrative Medical decision making narrative: I discussed patient with Dr. Hoffmann. Given that she is having postoperative bleeding and can still feel it on the back of her throat, she needs to be taken back to the OR. He did not want laboratory work performed with the exception of stat serum hCG. I reviewed her laboratory work and her serum is negative. Disposition is ER to the OR. Patient is in stable condition. Lab Data Attestation: I reviewed the patient's lab results. Labs: Laboratory Results - last 24 hr 05/09/22 04:30 Serum , Qual NEGATIVE Discharge Plan Dx/Rx/DC Orders Clinical Impression: History of tonsillectomy, Postoperative hemorrhage of tonsil, Post-op bleeding Disposition Disposition: Acute Care Hospital [facility] Discharge Date/Time: 05/09/22 04:39
--- NOTE | 2022-05-09 04:25 | PCM.CONS.GEN ---
Assessment & Plan Assessment/Plan (1) Postoperative hemorrhage of tonsil: PLAN: Plan post tonsillectomy hemorrhage -to OR for control HPI Consult Data Date of Consult: 05/09/22 HPI Narrative Reason for Consultation: post tonsillectomy hemorrhage HPI Narrative: SYLVIE MERCADO, is a 36 F who presents POD #9 s/p tonsillectomy with post tonsillectomy hemorrhage. she had an episode of acute bleeding this morning. [facility] Medical History COVID-19 Cyclic vomiting syndrome Esophageal reflux Former tobacco use Marijuana smoker, episodic Home Medications promethazine 25 mg tablet 25 mg PO Q6H PRN PRN Nausea #10 TABLETS 06/14/20 [Rx Last Taken 02/27/21] ondansetron 4 mg disintegrating tablet 4 mg PO Q8H PRN PRN Nausea #14 tabs 02/23/21 [Rx Last Taken 02/26/21] potassium chloride 20 mEq tablet,extended release(part/cryst) (Klor-Con M) 20 meq PO DAILY 5 days #5 tabs 07/04/21 [Rx Last Taken Unknown] hydrocodone 7.5 mg-acetaminophen 325 mg/15 mL oral solution 10 ml PO Q6H PRN pain 3 days #120 mL 05/07/22 [Rx Last Taken Unknown] Allergy/AdvReac Type Severity Reaction Status Date / Time Fish Containing Products Allergy Swelling Verified 05/09/22 03:13 haloperidol [From Haldol] AdvReac Other Verified 05/09/22 03:13 Family History Mother Hypertension Hyperlipidemia Father Hypertension Hyperlipidemia Surgical History Status post cholecystectomy Social History household members: significant other Smoking Status: Former smoker how long ago did patient quit smoking: Quit 15 years prior to current presentation. alcohol intake: never substance use type: marijuana Physical Exam Const alert General Appearance: cooperative Orientation / Consciousness: awake HEENT HEENT Narrative: s/p tonsillectomy. left tonsillar fossa clot. Nose: external nose normal
--- NOTE | 2022-05-09 04:30 | PCM.OPRPT ---
Problems Associated Problem List Diagnoses (1) Postoperative hemorrhage of tonsil: Report of Operation Date of Procedure: 05/09/22 Pre-Operative Diagnosis: post tonsillectomy hemorrhage Post-Operative Diagnosis: post tonsillectomy hemorrhage Surgery/Procedure Performed:: control post tonsillectomy hemorrhage Surgeon: Rosales Hoffmann Type of Anesthesia: General Description of Procedure: on the day of the procedure, after appropriate informed consent was obtained, the patient was brought to the operating room and placed in supine position on the operating table. she was placed under general endotracheal anesthesia by the anesthesiologist. the endotracheal tube was secured, the eyes were taped. the table was rotated 90 degrees toward the surgeon. a head drape was placed. a justino bobo mouthgag was inserted into the oral cavity with care not to damage the lips, teeth or gums. it was suspended from the pappas stand. a red rubber catheter was inserted transnasally to elevate the soft palate. the left tonsillar fossa was cauterized and hemostasis was achieved. the area was irrigated with saline. a valsalva maneuver was held and hemostasis was observed. she was brought out of general endotracheal anesthesia and transferred to the PACU in stable condition.
[2022-05-09 04:44] LABS: Internal QC Validated? YES +Cl - CLEAR BKGD; Pregnancy, Serum, hCG Quali. NEGATIVE Negative
--- NOTE | 2022-05-09 05:48 | DCINST_ITS ---
Discharge Instructions Diet Discharge Diet: No restrictions Activity Discharge Activity: Return to Normal Activity Dressing / Incision Call your doctor if your incision/area has: Sudden Increased Bleeding Follow Up Care Please Follow Up With: Rosales Hoffmann MD When: 2 weeks Test Results: Test results from this visit will be discussed in further detail at your follow- up appointment, if applicable. Discharge Plan Admission Attending Provider: Rosales Hoffmann Primary Care Provider: Sergio Grover Discharge Orders/Prescriptions Prescriptions: No Action promethazine 25 MG tablet 25 mg PO Q6H PRN PRN (Reason: Nausea) Qty: 10 0RF ondansetron 4 mg tablet,disintegrating 4 mg PO Q8H PRN PRN (Reason: Nausea) Qty: 14 0RF potassium chloride [Klor-Con M20] 20 mEq tablet,ER particles/crystals 20 meq PO DAILY 5 Days Qty: 5 0RF hydrocodone-acetaminophen 7.5-325 mg/15 mL solution 10 ml PO Q6H PRN (Reason: pain) 3 Days Qty: 120 0RF Referrals / Follow Up: Sergio Grover DO [Primary Care Provider] - Disposition Disposition (needs filled in before D/C Order can be placed): Home, Self Care
[2022-05-09] MEDS: HYDROcodone Bitartrate/Apap 5/325 Tablet PO (06:53)
== END 2022-05-09 07:30 | disposition home or self-care (01) ==
LOC: ED 03:44 → SDC 03:56
PROVIDERS: Emergency Provider Emergency Medicine; PCP Student in an Organized Health Care Education/Training Program; Visit Provider Otolaryngology
PROC: (CPT 42962; principal; 2022-05-09 04:30)
DX: J95.830 Postprocedural hemorrhage of a respiratory system organ or structure following a respiratory system procedure (principal); Y83.8 Other surgical procedures as the cause of abnormal reaction of the patient, or of later complication, without mention of misadventure at the time of the procedure; Z79.899 Other long term (current) drug therapy; Z87.891 Personal history of nicotine dependence; Z86.16 Personal history of COVID-19
CPT/HCPCS: 42962; 00170; 84703; 99283; J7030; A4216; J2405

== ENCOUNTER 2022-05-16 04:35 | Emergency (ER) | payer MEDICAID, SELFPAY ==
[2022-05-16 04:35] VITALS: BP 135/98; PULSE 89; RESP 18; TEMP 36.3; O2SAT 99; BMI 26.3
[2022-05-16] MEDS: Ondansetron 4 MG/2 ML Vial IV (05:29)
[2022-05-16] MEDS: 0.9% Normal Saline 1,000 ML 999 ML IV (05:29)
[2022-05-16 05:30] LABS: Absolute Lymphocyte Count 3.07 X10^3/uL (0.83-4.51); Absolute Neutrophil Count 3.9 X10^3/uL (2.0-7.7); Basophil# 0.02 X10^3/uL; Basophil% 0.3 % (0-1); Eosinophil# 0.27 X10^3/uL; Eosinophils% 3.4 % (0-5); Hemoglobin 12.5 g/dL (12.0-15.0); Lymphocyte # 3.07 X10^3/ul (0.83-4.51); Mean Corp Hgb Conc 32.9 g/dL (32-36); Mean Corpuscular Hgb 28.6 pg (27.0-32.0); Mean Platelet Vol. 8.7 fl (6.2-12.0); Monocyte# 0.64 X10^3/uL; Monocyte% 8.1 % (0-10); NRBC Flagged by Analyzer 0 % (0-5); Neutrophil # 3.85 X10^3/uL (2.7-7.7); Neutrophil % 48.9 % (47-70); Platelet Count 366 K/mm3 (150-450); RBC Distribution Width CV 11.9 % (11.6-14.6); Red Blood Count 4.37 M/mm3 (4.2-5.4); White Blood Count 7.9 K/mm3 (4.4-11.0)
[2022-05-16] MEDS: Morphine 4 MG/ML Syringe IV (05:30)
[2022-05-16 05:45] LABS: Anion Gap 7 (5-15); BUN 10 mg/dL (7-18); Calcium,Total 9.4 mg/dL (8.5-10.1); Chloride 108 mmol/L (98-107); Creatinine, Serum 0.91 mg/dL (0.55-1.02); EST Glomerular Filtration Rate 75 mL/min (>60); Est Glom Filt Rate - Afr Amer 90 mL/min (>60); Estimated Creatinine Clearance 71.38 ml/min; Glucose 102 mg/dL (74-106); Sodium Level 138 mmol/L (136-145)
[2022-05-16 05:56] LABS: Lactic Acid 0.7 mmol/L (0.4-1.9)
[2022-05-16] MEDS: HYDROmorphone 1 MG/ML Syringe IV (07:04)
--- NOTE | 2022-05-16 07:39 | EX.ED.DYSGE1 ---
HPI History of Present Illness Chief Complaint: Sore Throat Narrative Narrative: Patient is a 36-year-old female who had a tonsillectomy roughly 2 weeks ago. Approximately 1 week into postoperative healing she sustained a postoperative rebleed and had to go back to surgery to cauterize this. She states since that time she has been having persistent pain making difficult to talk and swallow does not respond to [id number] medications and secondary to this comes in for evaluation. [facility] Medical History COVID-19 Cyclic vomiting syndrome Esophageal reflux Former tobacco use Marijuana smoker, episodic Home Medications promethazine 25 mg tablet 25 mg PO Q6H PRN PRN Nausea #10 TABLETS 06/14/20 [Rx Last Taken 02/27/21] ondansetron 4 mg disintegrating tablet 4 mg PO Q8H PRN PRN Nausea #14 tabs 02/23/21 [Rx Last Taken 02/26/21] potassium chloride 20 mEq tablet,extended release(part/cryst) (Klor-Con M) 20 meq PO DAILY 5 days #5 tabs 07/04/21 [Rx Last Taken Unknown] hydrocodone 7.5 mg-acetaminophen 325 mg/15 mL oral solution 10 ml PO Q6H PRN pain 3 days #120 mL 05/07/22 [Rx Last Taken Unknown] lidocaine HCl 2 % mucosal solution 15 ml mucous membrane Q6H PRN pain #600 mL 05/16/22 [Rx Last Taken Unknown] oxycodone 5 mg/5 mL oral solution 5 mg (5 mL) PO Q6H PRN pain 3 days #60 mL 05/16/22 [Rx Last Taken Unknown] Allergy/AdvReac Type Severity Reaction Status Date / Time Fish Containing Products Allergy Swelling Verified 05/16/22 04:38 haloperidol [From Haldol] AdvReac Other Verified 05/16/22 04:38 Family History Mother Hypertension Hyperlipidemia Father Hypertension Hyperlipidemia Surgical History Status post cholecystectomy Social History household members: significant other Smoking Status: Former smoker how long ago did patient quit smoking: Quit 15 years prior to current presentation. alcohol intake: never substance use type: marijuana ROS ROS ED Constitutional Constitutional ED: Denies chills or fever(s) ENT ENT ED: Reports sore throat Cardiovascular Cardiovascular: Denies chest pain Respiratory/Chest Respiratory/Chest: Denies cough or dyspnea Gastrointestinal Gastrointestinal: Denies abdominal pain, diarrhea, nausea or vomiting Genitourinary Genitourinary ED: Denies dysuria Musculoskeletal Musculoskeletal: Reports neck pain; Denies myalgias Integumentary Denies rash Neurologic Neurologic: Denies headache(s) Hematologic/Lymphatic Hematologic/Lymphatic: Denies easy bleeding or easy bruising EXAM Physical Exam Const Vital Signs: 05/16/22 04:35 05/16/22 08:00 Temperature 97.3 F L Temperature Source Temporal Pulse Rate 89 80 Respiratory Rate 18 20 H Blood Pressure 135/98 H 108/69 Blood Pressure Mean 110 Pulse Ox 99 97 Oxygen Delivery Method Room Air Positive well nourished and well developed General Appearance ED: well developed HEENT Reports dry mucous membranes HEENT Narrative: There are postoperative changes in the posterior pharynx consistent recent tonsillectomy. However there is no active bleeding there is no airway edema or compromise. No secondary changes to suggest infection in the posterior pharynx. Mouth ED: Yes dry mucous membranes Mouth: dry mucous membranes Eyes PERRL and EOMs intact bilaterally Neck supple Neck Narrative: No nuchal rigidity or meningeal signs noted No crepitance palpated Resp normal respiratory effort and clear to auscultation bilaterally Cardio regular rate and regular rhythm GI normal to inspection, nondistended, normoactive bowel sounds, non-tender, non-distended and no masses Auscultation: normoactive bowel sounds Palpation: soft Extremity normal to inspection Neuro oriented x3 and CN's II-XII intact bilaterally Sensorium / Orientation: alert Psych mental status grossly normal Skin no rashes or lesions noted and skin turgor normal MDM MDM MDM Narrative Medical decision making narrative: Patient presented to the ER with stable vitals and no signs of airway compromise or secondary infection in the posterior pharynx. There is also no changes to suggest active rebleed. Therefore this time I felt no need for emergent imaging studies but as she states she had poor oral intake I did elect to check basic laboratory values. Labs show no leukocytosis or anemia no electrolyte derangement or acute kidney injury. Patient was given IV hydration as well as IV pain control and on reevaluation has had improvement of her pain. At this time as her exam and labs indicate this is postoperative pain and not secondary infection anemia or active rebleed there is no need for emergent ENT consultation and patient can be discharged home with symptomatic care. Lab Data Attestation: I reviewed the patient's lab results. Labs: Laboratory Results - last 24 hr 05/16/22 05/16/22 05/16/22 05:25 05:25 05:25 WBC 7.9 RBC 4.37 Hgb 12.5 Hct 38.0 MCV 87.0 MCH 28.6 MCHC 32.9 RDW Std Deviation 38.0 RDW Coeff of Fabian 11.9 Plt Count 366 MPV 8.7 Immature Gran % (Auto) 0.300 Neut % (Auto) 48.9 Lymph % (Auto) 39.0 Hardin % (Auto) 8.1 Eos % (Auto) 3.4 Baso % (Auto) 0.3 Absolute Neuts (auto) 3.9 Absolute Lymphs (auto) 3.07 Nucleated RBC % 0 Sodium 138 Potassium 4.0 Chloride 108 H Carbon Dioxide 23.0 Anion Gap 7 BUN 10 Creatinine 0.91 Estim Creat Clear Calc 71.38 Est GFR (MDRD) Af Amer 90 Est GFR (MDRD) Non-Af 75 BUN/Creatinine Ratio 11.0 Glucose 102 Lactic Acid 0.7 Calcium 9.4 Discharge Plan Triage Chief Complaint: Sore Throat ED Provider: Néstor Curran Dx/Rx/DC Orders Clinical Impression: History of tonsillectomy, Post-operative pain Instructions: After Tonsillectomy/Adenoidectomy, Pain Management After Surgery Prescriptions: New oxycodone 5 mg/5 mL solution 5 mg PO Q6H PRN (Reason: pain) 3 Days Qty: 60 0RF lidocaine HCl 2 % solution 15 ml mucous membrane Q6H PRN (Reason: pain) Qty: 600 0RF No Action promethazine 25 MG tablet 25 mg PO Q6H PRN PRN (Reason: Nausea) Qty: 10 0RF ondansetron 4 mg tablet,disintegrating 4 mg PO Q8H PRN PRN (Reason: Nausea) Qty: 14 0RF potassium chloride [Klor-Con M20] 20 mEq tablet,ER particles/crystals 20 meq PO DAILY 5 Days Qty: 5 0RF hydrocodone-acetaminophen 7.5-325 mg/15 mL solution 10 ml PO Q6H PRN (Reason: pain) 3 Days Qty: 120 0RF Primary Care Provider: Sergio Grover Referrals: Sergio Grover DO [Primary Care Provider] - Activity Restrictions/Additional Instructions: Please follow-up with your family doctor and/or ENT for repeat evaluation and return to the ER should you have any further concerns or worsening of symptoms Disposition Disposition: Home, Self Care Discharge Date/Time: 05/16/22 08:02
[2022-05-16 08:00] VITALS: BP 108/69; PULSE 80; RESP 20; O2SAT 97
== END 2022-05-16 08:02 | disposition home or self-care (01) ==
PROVIDERS: Emergency Provider Emergency Medicine; PCP Student in an Organized Health Care Education/Training Program; Visit Provider Emergency Medicine
DX: G89.18 Other acute postprocedural pain (principal); J02.9 Acute pharyngitis, unspecified; Z87.891 Personal history of nicotine dependence; Z98.890 Other specified postprocedural states
CPT/HCPCS: 80048; 83605; 85025; 96361; 96374; 96376; 99283; A4216; J2405

== ENCOUNTER 2022-12-22 23:10 | Emergency (ER) | payer MEDICAID, SELFPAY ==
[2022-12-22 23:11] VITALS: BP 135/96; PULSE 73; RESP 16; TEMP 35.7; BMI 26.1
[2022-12-22 23:13] VITALS: BP 135/96; PULSE 73; RESP 16; TEMP 35.7
--- NOTE | 2022-12-22 23:35 | EX.ED.DYSGE1 ---
HPI <Dr. Nikki Hollingsworth MD - Last Filed: 12/25/22 13:20> History of Present Illness Chief Complaint: Nausea/Vomiting Detail of Chief Complaint: Nausea, vomiting, and diarrhea Informant: patient Onset/Context/Timing Onset: Today Narrative Narrative: Patient presents with nausea, vomiting, and diarrhea since 8 AM this morning. She presents at 11 PM for evaluation and states she has not been able to keep anything down today. She does have Phenergan at home that she tried without improvement. No fever noted. Patient states she started to get muscle cramps in her abdomen from the vomiting. Patient does have a history of cyclic vomiting. We have not seen her for that for quite some time and patient states she still has problems with it very sporadically. [facility] <Dr. Nikki Hollingsworth MD - Last Filed: 12/25/22 13:20> [facility] Medical History COVID-19 Cyclic vomiting syndrome Esophageal reflux Former tobacco use Marijuana smoker, episodic Home Medications promethazine 25 mg tablet 25 mg PO Q6H PRN PRN Nausea #10 TABLETS 06/14/20 [Rx Last Taken 02/27/21] ondansetron 4 mg disintegrating tablet 4 mg PO Q8H PRN PRN Nausea #14 tabs 02/23/21 [Rx Last Taken 02/26/21] potassium chloride 20 mEq tablet,extended release(part/cryst) (Klor-Con M) 20 meq PO DAILY 5 days #5 tabs 07/04/21 [Rx Last Taken Unknown] hydrocodone 7.5 mg-acetaminophen 325 mg/15 mL oral solution 10 ml PO Q6H PRN pain 3 days #120 mL 05/07/22 [Rx Last Taken Unknown] lidocaine HCl 2 % mucosal solution 15 ml mucous membrane Q6H PRN pain #600 mL 05/16/22 [Rx Last Taken Unknown] oxycodone 5 mg/5 mL oral solution 5 mg (5 mL) PO Q6H PRN pain 3 days #60 mL 05/16/22 [Rx Last Taken Unknown] promethazine 25 mg tablet 25 mg PO TID PRN nausea and vomiting #21 tabs 12/23/22 [Rx Last Taken Unknown] ondansetron 4 mg disintegrating tablet 4 mg PO Q8H PRN PRN Nausea #10 tabs 12/24/22 [Rx Last Taken Unknown] Allergy/AdvReac Type Severity Reaction Status Date / Time Fish Containing Products Allergy Swelling Verified 12/24/22 10:30 haloperidol [From Haldol] AdvReac Other Verified 12/24/22 10:30 Family History Mother Hypertension Hyperlipidemia Father Hypertension Hyperlipidemia Surgical History Status post cholecystectomy Social History household members: significant other Smoking Status: Former smoker how long ago did patient quit smoking: Quit 15 years prior to current presentation. alcohol intake: never substance use type: marijuana ROS <Dr. Nikki Hollingsworth MD - Last Filed: 12/25/22 13:20> ROS ED Constitutional Constitutional ED: Denies chills or fever(s) Eyes Eyes: Denies change in vision or discharge from eye(s) ENT ENT ED: Denies discharge from eye(s) or sore throat Cardiovascular Cardiovascular: Denies chest pain or palpitations Respiratory/Chest Respiratory/Chest: Denies cough or dyspnea Gastrointestinal Gastrointestinal: Reports abdominal pain, diarrhea, nausea and vomiting Genitourinary Genitourinary ED: Denies dysuria Musculoskeletal Musculoskeletal: Reports myalgias; Denies back pain or extremity pain Integumentary Denies Abrasions or rash Neurologic Neurologic: Denies headache(s) or weakness Allergic/Immunologic Allergic/Immunologic ED: Denies lip swelling or urticaria EXAM <Dr. Nikki Hollingsworth MD - Last Filed: 12/25/22 13:20> Physical Exam Narrative Exam Narrative: Patient with frequent bouts of dry heaves and vomiting during my interview and exam. Const Vital Signs: 12/22/22 23:11 12/22/22 23:13 12/23/22 02:22 Temperature 96.3 F L 96.3 F L Temperature Source Temporal Temporal Pulse Rate 73 73 84 Respiratory Rate 16 16 16 Blood Pressure 135/96 H 135/96 H 139/87 H Blood Pressure Mean 109 109 104 Pulse Ox 98 Oxygen Delivery Method Room Air 12/23/22 02:41 12/23/22 04:00 Temperature Temperature Source Pulse Rate 76 Respiratory Rate 14 18 Blood Pressure 106/74 Blood Pressure Mean 84 Pulse Ox 98 97 Oxygen Delivery Method Room Air Room Air Positive well nourished and well developed General Appearance ED: well developed Eyes EOMs intact bilaterally Chest Wall inspection of chest normal and palpation of chest normal Resp normal respiratory effort and clear to auscultation bilaterally Cardio regular rate and regular rhythm GI GI Narrative: Mild diffuse tenderness to palpation. No guarding or rebound. Palpation: soft Extremity normal to inspection Neuro oriented x3 Psych Mood & Affect: anxious Skin no rashes or lesions noted <Dr. Kiko Donaldson DO - Last Filed: 12/23/22 06:13> Physical Exam Const Vital Signs: 12/22/22 23:11 12/22/22 23:13 12/23/22 02:22 Temperature 96.3 F L 96.3 F L Temperature Source Temporal Temporal Pulse Rate 73 73 84 Respiratory Rate 16 16 16 Blood Pressure 135/96 H 135/96 H 139/87 H Blood Pressure Mean 109 109 104 Pulse Ox 98 Oxygen Delivery Method Room Air 12/23/22 02:41 12/23/22 04:00 Temperature Temperature Source Pulse Rate 76 Respiratory Rate 14 18 Blood Pressure 106/74 Blood Pressure Mean 84 Pulse Ox 98 97 Oxygen Delivery Method Room Air Room Air MDM <Dr. Nikki Hollingsworth MD - Last Filed: 12/25/22 13:20> MDM MDM Narrative Medical decision making narrative: IV line established. Patient given IV fluids along with Toradol, Bentyl, and Zofran. Labwork obtained to evaluate for leukocytosis, anemia, and electrolyte derangement. History & Record Review Discussion w/independent historian: Patient Additional record(s) reviewed:: Prior ED visit and Prior labs Lab Data Attestation: I reviewed the patient's lab results. Labs: Laboratory Results - last 24 hr 12/22/22 23:30 WBC 16.3 H RBC 4.88 Hgb 14.0 Hct 42.2 MCV 86.5 MCH 28.7 MCHC 33.2 RDW Std Deviation 39.5 RDW Coeff of Fabian 12.4 Plt Count 199 MPV 10.0 Immature Gran % (Auto) 0.300 Neut % (Auto) 89.8 H Lymph % (Auto) 7.4 L [place] % (Auto) 2.4 Eos % (Auto) 0.0 Baso % (Auto) 0.1 Absolute Neuts (auto) 14.6 H Absolute Lymphs (auto) 1.21 Nucleated RBC % 0 Sodium 140 Potassium 4.0 Chloride 105 Carbon Dioxide 21.0 Anion Gap 14 BUN 13 Creatinine 1.15 H Estim Creat Clear Calc 55.94 Est GFR (MDRD) Af Amer 69 Est GFR (MDRD) Non-Af 57 L BUN/Creatinine Ratio 11.3 Glucose 140 H Calcium 9.6 Magnesium 1.7 Total Bilirubin 0.80 Direct Bilirubin 0.22 AST 20 ALT 31 Alkaline Phosphatase 80 Total Protein 8.7 H Albumin 4.7 Globulin 4.0 Lipase 11 L Serum , Qual NEGATIVE Treatment and Re-Evaluation :: CBC reveals a white count of 16.3 with 89% neutrophils. Hemoglobin is 14. Chemistry studies reveal a BUN of 13 and creatinine 1.15. Glucose is 140. LFTs are unremarkable. test negative. When I went back to re-evaluate the patient, nursing staff tells me they have not yet been able to establish an IV line. She has not gotten her meds. Patient will be signed out to oncoming physician for repeat evaluation. Patient was turned over to me by Dr. Hollingsworth @ 1230am Brief history: External female here with nausea vomiting history of cyclic vomiting syndrome and IBS Physical exam: Patient was hemodynamically stable, afebrile, nontoxic-appearing. Abdominal exam was benign, with no rigidity rebound or guarding. No peritoneal signs. Low suspicion for acute surgical process of the abdomen Labs and images reviewed (if obtained): CBC with leukocytosis suggestive of systemic inflammation likely reactive secondary nausea vomiting, no anemia, no thrombocytopenia BMP without evidence of significant electrolyte abnormalities, no anion gap, no acute kidney injury. Magnesium within normal limits LFTs show no evidence of hepatobiliary pathology. Lipase is wnl indicating no pancreatic inflammation. Urine test is negative EKG with Normal sinus rhythm, normal axis, normal intervals (QTc 452) no STEMI The amalgamation of the patient's labs images are consistent with likely cyclic vomiting. Low suspicion for bowel perforation or obstruction or other surgical process of the abdomen given benign belly exam. Patient symptomatically was better after Bentyl, Toradol, Zofran and fluids. She complained of ongoing nausea despite this treatment. She is given IM Phenergan and a dose of IV morphine. She is able to tolerate p.o. repeat abdominal exam remained benign. The patient is appropriate for discharge. MDM/plan: Discharged with strict return precautions <Dr. Kiko Donaldson, DO - Last Filed: 12/23/22 06:13> [facility] Lab Data Labs: Laboratory Results - last 24 hr 12/22/22 23:30 WBC 16.3 H RBC 4.88 Hgb 14.0 Hct 42.2 MCV 86.5 MCH 28.7 MCHC 33.2 RDW Std Deviation 39.5 RDW Coeff of Fabian 12.4 Plt Count 199 MPV 10.0 Immature Gran % (Auto) 0.300 Neut % (Auto) 89.8 H Lymph % (Auto) 7.4 L [place] % (Auto) 2.4 Eos % (Auto) 0.0 Baso % (Auto) 0.1 Absolute Neuts (auto) 14.6 H Absolute Lymphs (auto) 1.21 Nucleated RBC % 0 Sodium 140 Potassium 4.0 Chloride 105 Carbon Dioxide 21.0 Anion Gap 14 BUN 13 Creatinine 1.15 H Estim Creat Clear Calc 55.94 Est GFR (MDRD) Af Amer 69 Est GFR (MDRD) Non-Af 57 L BUN/Creatinine Ratio 11.3 Glucose 140 H Calcium 9.6 Magnesium 1.7 Total Bilirubin 0.80 Direct Bilirubin 0.22 AST 20 ALT 31 Alkaline Phosphatase 80 Total Protein 8.7 H Albumin 4.7 Globulin 4.0 Lipase 11 L Serum , Qual NEGATIVE Treatment and Re-Evaluation :: CBC reveals a white count of 16.3 with 89% neutrophils. Hemoglobin is 14. Chemistry studies reveal a BUN of 13 and creatinine 1.15. Glucose is 140. LFTs are unremarkable. test negative. When about to evaluate the patient nursing staff tells me they have not yet been able to establish an IV line. She has not gotten in her meds. Patient be signed out to oncoming physician for repeat evaluation. Patient was turned over to me by Dr. Hollingsworth @ 1230am Brief history: External female here with nausea vomiting history of cyclic vomiting syndrome and IBS Physical exam: Patient was hemodynamically stable, afebrile, nontoxic-appearing. Abdominal exam was benign, with no rigidity rebound or guarding. No peritoneal signs. Low suspicion for acute surgical process of the abdomen Labs and images reviewed (if obtained): CBC with leukocytosis suggestive of systemic inflammation likely reactive secondary nausea vomiting, no anemia, no thrombocytopenia BMP without evidence of significant electrolyte abnormalities, no anion gap, no acute kidney injury. Magnesium within normal limits LFTs show no evidence of hepatobiliary pathology. Lipase is wnl indicating no pancreatic inflammation. Urine test is negative EKG with Normal sinus rhythm, normal axis, normal intervals (QTc 452) no STEMI The amalgamation of the patient's labs images are consistent with likely cyclic vomiting. Low suspicion for bowel perforation or obstruction or other surgical process of the abdomen given benign belly exam. Patient symptomatically was better after Bentyl, Toradol, Zofran and fluids. She complained of ongoing nausea despite this treatment. She is given IM Phenergan and a dose of IV morphine. She is able to tolerate p.o. repeat abdominal exam remained benign. The patient is appropriate for discharge. MDM/plan: Discharged with strict return precautions Discharge Plan Triage Chief Complaint: Nausea/Vomiting ED Provider: Nikki Hollingsworth Dx/Rx/DC Orders Clinical Impression: Vomiting Instructions: ED Vomiting (Adult) Prescriptions: New promethazine 25 mg tablet 25 mg PO TID PRN (Reason: nausea and vomiting) Qty: 21 0RF No Action promethazine 25 MG tablet 25 mg PO Q6H PRN PRN (Reason: Nausea) Qty: 10 0RF ondansetron 4 mg tablet,disintegrating 4 mg PO Q8H PRN PRN (Reason: Nausea) Qty: 14 0RF potassium chloride [Klor-Con M20] 20 mEq tablet,ER particles/crystals 20 meq PO DAILY 5 Days Qty: 5 0RF hydrocodone-acetaminophen 7.5-325 mg/15 mL solution 10 ml PO Q6H PRN (Reason: pain) 3 Days Qty: 120 0RF oxycodone 5 mg/5 mL solution 5 mg PO Q6H PRN (Reason: pain) 3 Days Qty: 60 0RF lidocaine HCl 2 % solution 15 ml mucous membrane Q6H PRN (Reason: pain) Qty: 600 0RF ondansetron [ondansetron] 4 mg tablet,disintegrating 4 mg PO Q8H PRN PRN (Reason: Nausea) Qty: 10 0RF Stand Alone Forms: ED Work / School Excuse Primary Care Provider: Sergio Grover Referrals: Sergio Grover, [Primary Care Provider] - Activity Restrictions/Additional Instructions: Thank you for trusting us with your care today! Please take Tylenol (2 pills, 650 mg), ibuprofen (2 pills, 400 mg) every 6 hours as needed for pain and fever control. Please take Phenergan as needed for nausea and vomiting. Please return to the emergency department if your symptoms change or worsen. Please follow with your primary care physician for further outpatient evaluation and management. Disposition Disposition: Home, Self Care Discharge Date/Time: 12/23/22 06:38
[2022-12-22 23:44] LABS: Absolute Lymphocyte Count 1.21 X10^3/uL (0.83-4.51); Absolute Neutrophil Count 14.6 X10^3/uL (2.0-7.7); Basophil# 0.02 X10^3/uL; Basophil% 0.1 % (0-1); Hematocrit 42.2 % (37-47); Lymphocyte # 1.21 X10^3/ul (0.83-4.51); Lymphocyte % 7.4 % (19-41); Mean Corp Hgb Conc 33.2 g/dL (32-36); Mean Corpuscular Hgb 28.7 pg (27.0-32.0); Mean Corpuscular Volume 86.5 fL (81-99); Monocyte# 0.39 X10^3/uL; Monocyte% 2.4 % (0-10); NRBC Flagged by Analyzer 0 % (0-5); Neutrophil # 14.59 X10^3/uL (2.7-7.7); Neutrophil % 89.8 % (47-70); Platelet Count 199 K/mm3 (150-450); RBC Distribution Width CV 12.4 % (11.6-14.6); RBC Distribution Width SD 39.5 fl (35.1-43.9); Red Blood Count 4.88 M/mm3 (4.2-5.4); White Blood Count 16.3 K/mm3 (4.4-11.0)
[2022-12-22 23:54] LABS: Internal QC Validated? YES +Cl - CLEAR BKGD; Pregnancy, Serum, hCG Quali. NEGATIVE Negative
[2022-12-23 00:02] LABS: AST(SGOT) 20 U/L (15-37); Alanine Aminotransfer ALT/SGPT 31 U/L (13-56); Albumin, Serum 4.7 g/dL (3.2-5.0); Alkaline Phosphatase 80 U/L (45-117); Anion Gap 14 (5-15); BUN 13 mg/dL (7-18); BUN/Creat Ratio 11.3 RATIO (10-20); Bilirubin, Direct 0.22 mg/dL (0.00-0.30); Calcium,Total 9.6 mg/dL (8.5-10.1); Chloride 105 mmol/L (98-107); Creatinine, Serum 1.15 mg/dL (0.55-1.02); EST Glomerular Filtration Rate 57 mL/min (>60); Est Glom Filt Rate - Afr Amer 69 mL/min (>60); Estimated Creatinine Clearance 55.94 ml/min; Glucose 140 mg/dL (74-106); Lipase 11 U/L (13-75); Magnesium 1.7 mg/dL (1.6-2.6); Protein, Total 8.7 g/dL (6.4-8.2); Sodium Level 140 mmol/L (136-145)
[2022-12-23] MEDS: Ketorolac 30 MG/ML Syringe IV (00:20)
[2022-12-23] MEDS: Dicyclomine 20 MG/2 ML Vial IM (00:20)
[2022-12-23] MEDS: 0.9% Normal Saline (1000mL) 1,000 ML 1000 ML IV (00:20)
[2022-12-23] MEDS: Ondansetron 4 MG/2 ML Vial IV (00:20)
[2022-12-23] MEDS: 0.9% Normal Saline (1000mL) 1,000 ML 150 ML IV (01:00)
--- NOTE | 2022-12-23 01:54 | EKG12_ITS ---
Test Reason : NAUSEA AND V Blood Pressure : / mmHG Vent. Rate : 074 BPM Atrial Rate : 074 BPM P-R Int : 156 ms QRS Dur : 074 ms QT Int : 408 ms P-R-T Axes : 081 072 073 degrees QTc Int : 452 ms Normal sinus rhythm with sinus arrhythmia Normal ECG Confirmed by PATY JIMENEZ, LEXA ([id number]), writer editor TAYO HERMOSILLO ([id number]) on 12/24/2022 2:42:20 PM Referred By: Confirmed By:LEXA NEWMAN MD
[2022-12-23] MEDS: proMETHazine 25 MG/ML Syringe IM (02:03)
[2022-12-23] MEDS: Morphine 4 MG/ML Syringe IV (02:03)
[2022-12-23 02:22] VITALS: BP 139/87; PULSE 84; RESP 16; O2SAT 98
[2022-12-23 02:41] VITALS: BP 106/74; PULSE 76; RESP 14; O2SAT 98
[2022-12-23 04:00] VITALS: RESP 18; O2SAT 97
[2022-12-23 06:37] VITALS: BP 142/88; PULSE 75; RESP 18; O2SAT 100
== END 2022-12-23 06:38 | disposition home or self-care (01) ==
PROVIDERS: Emergency Provider Emergency Medicine; PCP Student in an Organized Health Care Education/Training Program; Visit Provider Emergency Medicine
DX: R11.2 Nausea with vomiting, unspecified (principal); R19.7 Diarrhea, unspecified; Z87.891 Personal history of nicotine dependence; Z87.19 Personal history of other diseases of the digestive system
CPT/HCPCS: 80048; 80076; 83690; 83735; 84703; 85025; 93005; 96361; 96372; 96374; 96375; 99282; A4216; J2405

== ENCOUNTER 2022-12-24 10:29 | Emergency (ER) | payer MEDICAID, SELFPAY ==
[2022-12-24 10:30] VITALS: BP 122/107; PULSE 82; RESP 16; TEMP 36.8; O2SAT 100; BMI 26.2
--- NOTE | 2022-12-24 11:09 | EX.ED.DYSGE1 ---
HPI History of Present Illness Chief Complaint: Nausea/Vomiting Informant: patient Narrative Narrative: Recurrent nausea and vomiting since being seen in the ED over 24 hours ago. Previous THC induced vomiting. She states she was at a [employer] 2 days ago and smoked with friends. Symptoms restarted. At that time had vomiting diarrhea. She is feeling better on discharge. States went home symptoms recurred a few hours later. Vomiting every 2 hours last time in triage. No hematemesis. No diarrhea since being discharged. Cholecystectomy in the past. She has seen Dr. Levy on follow-up over a year ago reported upper endoscopy that was normal. Was told refrain from marijuana for which she has been up to 2 days ago. She has Nexplanon therefore abnormal menstrual periods. She reports that hot showers made symptoms worse. After evaluation evaluation ED visit had a leukocytosis of 16 reported likely secondary to her emesis. Negative hCG normal electrolytes. Prior similar symptoms: Yes [facility] Medical History COVID-19 Cyclic vomiting syndrome Esophageal reflux Former tobacco use Marijuana smoker, episodic Home Medications promethazine 25 mg tablet 25 mg PO Q6H PRN PRN Nausea #10 TABLETS 06/14/20 [Rx Last Taken 02/27/21] ondansetron 4 mg disintegrating tablet 4 mg PO Q8H PRN PRN Nausea #14 tabs 02/23/21 [Rx Last Taken 02/26/21] potassium chloride 20 mEq tablet,extended release(part/cryst) (Klor-Con M) 20 meq PO DAILY 5 days #5 tabs 07/04/21 [Rx Last Taken Unknown] hydrocodone 7.5 mg-acetaminophen 325 mg/15 mL oral solution 10 ml PO Q6H PRN pain 3 days #120 mL 05/07/22 [Rx Last Taken Unknown] lidocaine HCl 2 % mucosal solution 15 ml mucous membrane Q6H PRN pain #600 mL 05/16/22 [Rx Last Taken Unknown] oxycodone 5 mg/5 mL oral solution 5 mg (5 mL) PO Q6H PRN pain 3 days #60 mL 05/16/22 [Rx Last Taken Unknown] promethazine 25 mg tablet 25 mg PO TID PRN nausea and vomiting #21 tabs 12/23/22 [Rx Last Taken Unknown] ondansetron 4 mg disintegrating tablet 4 mg PO Q8H PRN PRN Nausea #10 tabs 12/24/22 [Rx Last Taken Unknown] Allergy/AdvReac Type Severity Reaction Status Date / Time Fish Containing Products Allergy Swelling Verified 12/24/22 10:30 haloperidol [From Haldol] AdvReac Other Verified 12/24/22 10:30 Family History Mother Hypertension Hyperlipidemia Father Hypertension Hyperlipidemia Surgical History Status post cholecystectomy Social History household members: significant other Smoking Status: Former smoker how long ago did patient quit smoking: Quit 15 years prior to current presentation. alcohol intake: never substance use type: marijuana ROS ROS ED Constitutional Constitutional ED: Denies chills, fever(s) or sweats Eyes Eyes: Denies change in vision ENT ENT ED: Denies dysphagia or sore throat Cardiovascular Cardiovascular: Denies chest pain, leg edema, palpitations or racing heartbeat Respiratory/Chest Respiratory/Chest: Denies cough, dyspnea or dyspnea on exertion Gastrointestinal Gastrointestinal: Reports abdominal pain, nausea and vomiting; Denies diarrhea Genitourinary Genitourinary ED: Denies dysuria, hematuria or urinary frequency Musculoskeletal Musculoskeletal: Denies back pain, extremity pain or neck pain Integumentary Denies rash or wounds Neurologic Neurologic: Denies headache(s), paresthesias or weakness EXAM Physical Exam Const Vital Signs: 12/24/22 10:30 12/24/22 13:16 Temperature 98.2 F Temperature Source Temporal Pulse Rate 82 68 Respiratory Rate 16 16 Blood Pressure 122/107 H 132/90 H Blood Pressure Mean 112 104 Pulse Ox 100 100 Oxygen Delivery Method Room Air Room Air Positive well nourished and well developed General Appearance ED: well developed and NAD HEENT Reports moist mucous membranes normocephalic and atraumatic Eyes PERRL, EOMs intact bilaterally and conjunctivae normal General Eye ED: Yes normal appearance of both eyes Neck no lymphadenopathy and supple General: Negative for tenderness Chest Wall Chest: Negative for tenderness Resp normal respiratory effort and normal air movement Effort and Inspection: symmetric chest movement; Negative for respiratory distress Cardio regular rate, regular rhythm and no murmurs Peripheral Pulses: pulses 2+ throughout GI normal to inspection, nondistended, normoactive bowel sounds GI Narrative: Mild generalized tenderness. Negative Brian's and McBurney's. Palpation: Negative for guarding or rebound tenderness present Back/Spine no CVA tenderness and no thoracic nor lumbar tenderness Extremity normal to inspection General Extremety ED: Negative for edema or tenderness General Extremity: Negative for edema Neuro oriented x3 and no sensory deficits noted Sensorium / Orientation: awake and alert Skin no rashes or lesions noted and no wounds MDM MDM MDM Narrative Medical decision making narrative: Interventions / MDM: Differential diagnosis: Cannabis hyperemesis syndrome, cyclic vomiting, ovarian cyst Diagnosis considered but do not suspect: N/A My EKG interpretation: N/A Imaging independently reviewed and interpreted by myself: CT abdomen pelvis IV contrast: Incidental right ovarian cysts. No other acute process. Normal appendix External documents reviewed: N/A Test considered but not ordered:N/A ED course: Patient history marijuana use again 2 days ago and symptoms started. Tender lower abdomen. Abdominal labs fluids Reglan Benadryl ordered for symptom control. 1205: Reevaluation still nauseated still has abdominal pain however better than previous. She had leukocytosis of his pain similar from 2 days ago lipase normal liver enzymes normal creatinine 1.1. Will order additional Zofran, will obtain a CT scan to rule intra-abdominal process. Additional Ativan was required. CT results small right ovarian cyst. No acute surgical process. Clinically improving tolerate p.o. intake. Prescription Zofran sent to her pharmacy as she reports this helps her more. She will refrain from marijuana use. She will follow-up with GI. Return precautions. All questions were answered. Re-evaluation: stable Disposition discussed with patient/family/significant other: Patient Case discussed with consulting clinician: N/A This note was generated with [employer] dictation software. It may contain incorrect words, spelling, and punctuation that were not noted in checking the note before signing. Lab Data Attestation: I reviewed the patient's lab results. Labs: Laboratory Results - last 24 hr 12/24/22 10:45 WBC 16.0 H RBC 4.78 Hgb 13.8 Hct 41.5 MCV 86.8 MCH 28.9 MCHC 33.3 RDW Std Deviation 39.8 RDW Coeff of Fabian 12.4 Plt Count 250 MPV 9.6 Immature Gran % (Auto) 0.300 Neut % (Auto) 76.3 H Lymph % (Auto) 17.6 L [place] % (Auto) 5.5 Eos % (Auto) 0.1 Baso % (Auto) 0.2 Absolute Neuts (auto) 12.2 H Absolute Lymphs (auto) 2.81 Nucleated RBC % 0 Sodium 140 Potassium 3.6 Chloride 106 Carbon Dioxide 23.0 Anion Gap 11 BUN 16 Creatinine 1.10 H Estim Creat Clear Calc 58.49 Est GFR (MDRD) Af Amer 72 Est GFR (MDRD) Non-Af 60 BUN/Creatinine Ratio 14.5 Glucose 128 H Calcium 9.3 Total Bilirubin 0.70 AST 22 ALT 29 Alkaline Phosphatase 78 Total Protein 7.9 Albumin 4.3 Globulin 3.6 Albumin/Globulin Ratio 1.2 Lipase 16 Serum , Qual NEGATIVE Radiography Diagnostic Testing: Clinical Impression(s) from Imaging Studies Abdomen/Pelvis CT 12/24/22 12:04 IMPRESSION: Right ovarian cyst. Electronically Signed: Preet Lewis MD at 13:29 EDT , Discharge Plan Triage Chief Complaint: Nausea/Vomiting ED Provider: Vasquez Rubalcava Dx/Rx/DC Orders Clinical Impression: Cannabis use disorder, Cyclical vomiting, Cyst of right ovary Instructions: Cannabinoid Hyperemesis Syndrome, ED Ovarian Cyst Prescriptions: New ondansetron [ondansetron] 4 mg tablet,disintegrating 4 mg PO Q8H PRN PRN (Reason: Nausea) Qty: 10 0RF No Action promethazine 25 MG tablet 25 mg PO Q6H PRN PRN (Reason: Nausea) Qty: 10 0RF ondansetron 4 mg tablet,disintegrating 4 mg PO Q8H PRN PRN (Reason: Nausea) Qty: 14 0RF potassium chloride [Klor-Con M20] 20 mEq tablet,ER particles/crystals 20 meq PO DAILY 5 Days Qty: 5 0RF hydrocodone-acetaminophen 7.5-325 mg/15 mL solution 10 ml PO Q6H PRN (Reason: pain) 3 Days Qty: 120 0RF oxycodone 5 mg/5 mL solution 5 mg PO Q6H PRN (Reason: pain) 3 Days Qty: 60 0RF lidocaine HCl 2 % solution 15 ml mucous membrane Q6H PRN (Reason: pain) Qty: 600 0RF promethazine 25 mg tablet 25 mg PO TID PRN (Reason: nausea and vomiting) Qty: 21 0RF Stand Alone Forms: ED Work / School Excuse Primary Care Provider: Sergio Grover Referrals: Sergio Grover DO [Primary Care Provider] - Friend,DO Florentin [Med Staff - Active Staff] - 1-2 Weeks Activity Restrictions/Additional Instructions: CT scan incidental right ovarian cyst 2 cm. No acute process. Avoid cannabis. Continue oral fluids for hydration. Zofran as needed. Follow-up with your doctor. Return for any recurrent or worsening symptoms. Lumbar Disposition Disposition: Home, Self Care Discharge Date/Time: 12/24/22 14:18
[2022-12-24] MEDS: 0.9% Normal Saline (1000mL) 1,000 ML 1000 ML IV (11:16)
[2022-12-24] MEDS: DiphenhydrAMINE 50 MG/ML Syringe 25 MG IV (11:16)
[2022-12-24] MEDS: Metoclopramide 10 MG/2 ML Vial IV (11:16)
[2022-12-24 11:25] LABS: Absolute Lymphocyte Count 2.81 X10^3/uL (0.83-4.51); Absolute Neutrophil Count 12.2 X10^3/uL (2.0-7.7); Basophil# 0.03 X10^3/uL; Basophil% 0.2 % (0-1); Eosinophil# 0.01 X10^3/uL; Eosinophils% 0.1 % (0-5); Hematocrit 41.5 % (37-47); Hemoglobin 13.8 g/dL (12.0-15.0); Lymphocyte # 2.81 X10^3/ul (0.83-4.51); Lymphocyte % 17.6 % (19-41); Mean Corp Hgb Conc 33.3 g/dL (32-36); Mean Corpuscular Hgb 28.9 pg (27.0-32.0); Mean Corpuscular Volume 86.8 fL (81-99); Mean Platelet Vol. 9.6 fl (6.2-12.0); Monocyte# 0.88 X10^3/uL; Monocyte% 5.5 % (0-10); NRBC Flagged by Analyzer 0 % (0-5); Neutrophil # 12.22 X10^3/uL (2.7-7.7); Neutrophil % 76.3 % (47-70); Platelet Count 250 K/mm3 (150-450); RBC Distribution Width CV 12.4 % (11.6-14.6); RBC Distribution Width SD 39.8 fl (35.1-43.9); Red Blood Count 4.78 M/mm3 (4.2-5.4)
[2022-12-24 11:42] LABS: Internal QC Validated? YES +Cl - CLEAR BKGD; Pregnancy, Serum, hCG Quali. NEGATIVE Negative
[2022-12-24 11:45] LABS: ALB/GLOB Ratio 1.2 RATIO (0.9-2.4); AST(SGOT) 22 U/L (15-37); Alanine Aminotransfer ALT/SGPT 29 U/L (13-56); Albumin, Serum 4.3 g/dL (3.2-5.0); Alkaline Phosphatase 78 U/L (45-117); Anion Gap 11 (5-15); BUN 16 mg/dL (7-18); BUN/Creat Ratio 14.5 RATIO (10-20); Calcium,Total 9.3 mg/dL (8.5-10.1); Chloride 106 mmol/L (98-107); EST Glomerular Filtration Rate 60 mL/min (>60); Est Glom Filt Rate - Afr Amer 72 mL/min (>60); Estimated Creatinine Clearance 58.49 ml/min; Globulin 3.6 g/dL (2.2-4.2); Glucose 128 mg/dL (74-106); Lipase 16 U/L (13-75); Potassium 3.6 mmol/L (3.5-5.1); Protein, Total 7.9 g/dL (6.4-8.2); Sodium Level 140 mmol/L (136-145)
--- NOTE | 2022-12-24 12:04 | CT_ITS ---
STUDY: CT ABDOMEN AND PELVIS WITH CONTRAST REASON FOR EXAM: Female, 37 years old. Abdominal pain. 3 day history of nausea and vomiting. RADIATION DOSAGE (If Supplied By Facility): CTDIvol = ( 12.99 ) mGy, DLP = ( 449.5 ) mGycm TECHNIQUE: Transaxial images were obtained from the dome of the diaphragm to the symphysis pubis without oral contrast. IV 100mL Isovue-300 was administered. Sagittal and coronal images were reconstructed. Individualized dose optimization techniques were used for this CT. COMPARISON: Comparison is made with prior study dated May 15, 2016. FINDINGS: The visualized lung bases are unremarkable. The visualized portions of the heart are within normal limits. Normal liver. The gallbladder is not visualized most likely secondary to prior cholecystectomy. Normal spleen. Normal pancreas. Normal bilateral adrenal glands. Normal right kidney. Normal left kidney. Normal visualized stomach. Normal small intestine. Normal colon. The appendix is visualized and appears normal. Normal abdominal aorta. Normal inferior vena cava. Normal retroperitoneum. Normal urinary bladder. There is a 2.1 cm by 2.2 cm cyst in the right ovary. Small follicles are seen in the left ovary. There is a small umbilical hernia containing fat. Normal osseous structures. CT/Abdomen/Pelvis W IV Cont ONLY IMPRESSION: Right ovarian cyst. Electronically Signed: Preet Lewis MD at 13:29 EDT ,
[2022-12-24] MEDS: Ondansetron 4 MG/2 ML Vial IV (12:26)
[2022-12-24] MEDS: LORazepam 2 MG/ML Syringe 1 MG IV (13:14)
[2022-12-24 13:16] VITALS: BP 132/90; PULSE 68; RESP 16; O2SAT 100
== END 2022-12-24 14:18 | disposition home or self-care (01) ==
PROVIDERS: Emergency Provider Emergency Medicine; PCP Student in an Organized Health Care Education/Training Program; Visit Provider Emergency Medicine
DX: R11.15 Cyclical vomiting syndrome unrelated to migraine (principal); N83.201 Unspecified ovarian cyst, right side; Z87.891 Personal history of nicotine dependence; F12.90 Cannabis use, unspecified, uncomplicated
CPT/HCPCS: 74177; 80053; 83690; 84703; 85025; 96361; 96374; 96375; 99283; J7030; Q9967; A4216; J2405

== ENCOUNTER 2022-12-25 19:18 | Observation (INO) | payer MEDICAID, SELFPAY ==
[2022-12-25 19:18] VITALS: BP 148/94; PULSE 73; RESP 15; TEMP 36.5; O2SAT 100
[2022-12-25] MEDS: 0.9% Normal Saline (1000mL) 1,000 ML 1000 ML IV (20:08)
[2022-12-25] MEDS: Metoclopramide 10 MG/2 ML Vial 5 MG IV (20:08)
[2022-12-25] MEDS: Famotidine 200 MG/20 ML MDV 20 MG in 0.9% Normal Saline (Pres. free 8 ML 300 MG IV (20:23)
[2022-12-25 20:32] LABS: Absolute Lymphocyte Count 2.78 X10^3/uL (0.83-4.51); Absolute Neutrophil Count 11.2 X10^3/uL (2.0-7.7); Basophil# 0.04 X10^3/uL; Basophil% 0.3 % (0-1); Eosinophil# 0.03 X10^3/uL; Eosinophils% 0.2 % (0-5); Hematocrit 44.3 % (37-47); Hemoglobin 14.5 g/dL (12.0-15.0); Lymphocyte # 2.78 X10^3/ul (0.83-4.51); Lymphocyte % 18.4 % (19-41); Mean Corp Hgb Conc 32.7 g/dL (32-36); Mean Corpuscular Hgb 28.9 pg (27.0-32.0); Mean Corpuscular Volume 88.2 fL (81-99); Mean Platelet Vol. 9.2 fl (6.2-12.0); Monocyte% 6.6 % (0-10); NRBC Flagged by Analyzer 0 % (0-5); Neutrophil # 11.22 X10^3/uL (2.7-7.7); Neutrophil % 74.2 % (47-70); Platelet Count 271 K/mm3 (150-450); RBC Distribution Width CV 12.3 % (11.6-14.6); Red Blood Count 5.02 M/mm3 (4.2-5.4); White Blood Count 15.1 K/mm3 (4.4-11.0)
[2022-12-25 20:42] LABS: Anion Gap 6 (5-15); BUN 16 mg/dL (7-18); BUN/Creat Ratio 14.3 RATIO (10-20); Calcium,Total 9.1 mg/dL (8.5-10.1); Chloride 105 mmol/L (98-107); Creatinine, Serum 1.12 mg/dL (0.55-1.02); EST Glomerular Filtration Rate 58 mL/min (>60); Est Glom Filt Rate - Afr Amer 71 mL/min (>60); Glucose 126 mg/dL (74-106); Potassium 3.7 mmol/L (3.5-5.1); Sodium Level 135 mmol/L (136-145)
[2022-12-25] MEDS: LORazepam 2 MG/ML Syringe 1 MG IV (20:53)
--- NOTE | 2022-12-25 22:23 | EX.ED.DYSGE1 ---
HPI History of Present Illness Chief Complaint: Nausea/Vomiting Informant: patient Narrative Narrative: Resents recurrent vomiting. History of THC use again approximately 3 days ago before symptoms started. She was out with friends at that time. She was in the ED 3 days ago, returned yesterday continued symptoms was seen by myself. She had a CT scan yesterday incidental right ovarian cyst. Leukocytosis of 16. She is feeling better with treatment yesterday sent home on Phenergan suppositories and orally. She states went home continued emesis. She has not tried suppositories. States now has indigestion discomfort from the vomiting. No diarrhea. She denies any additional marijuana use since 3 days ago. Prior similar symptoms: Yes PFSH PFS Medical History COVID-19 Cyclic vomiting syndrome Esophageal reflux Former tobacco use Marijuana smoker, episodic Home Medications NK 12/25/22 [History Last Taken Unknown] Allergy/AdvReac Type Severity Reaction Status Date / Time Fish Containing Products Allergy Swelling Verified 12/25/22 19:22 haloperidol [From Haldol] AdvReac Other Verified 12/25/22 19:22 Family History Mother Hypertension Hyperlipidemia Father Hypertension Hyperlipidemia Surgical History Status post cholecystectomy Social History household members: significant other Smoking Status: Former smoker how long ago did patient quit smoking: Quit 15 years prior to current presentation. alcohol intake: never substance use type: marijuana ROS ROS ED Constitutional Constitutional ED: Denies chills, fever(s) or sweats Eyes Eyes: Denies change in vision ENT ENT ED: Denies dysphagia or sore throat Cardiovascular Cardiovascular: Denies chest pain, leg edema, palpitations or racing heartbeat Respiratory/Chest Respiratory/Chest: Denies cough, dyspnea or dyspnea on exertion Gastrointestinal Gastrointestinal: Reports abdominal pain, nausea and vomiting; Denies diarrhea Genitourinary Genitourinary ED: Denies dysuria, hematuria or urinary frequency Musculoskeletal Musculoskeletal: Denies back pain, extremity pain or neck pain Integumentary Denies rash or wounds Neurologic Neurologic: Denies headache(s), paresthesias or weakness EXAM Physical Exam Const Vital Signs: 12/25/22 19:18 Temperature 97.7 F L Temperature Source Temporal Pulse Rate 73 Respiratory Rate 15 Blood Pressure 148/94 H Blood Pressure Mean 112 Pulse Ox 100 Oxygen Delivery Method Room Air Positive well nourished and well developed General Appearance ED: well developed and NAD HEENT Reports moist mucous membranes normocephalic and atraumatic Eyes PERRL, EOMs intact bilaterally and conjunctivae normal General Eye ED: Yes normal appearance of both eyes Neck no lymphadenopathy and supple General: Negative for tenderness Chest Wall Chest: Negative for tenderness Resp normal respiratory effort and normal air movement Effort and Inspection: symmetric chest movement; Negative for respiratory distress Cardio regular rate, regular rhythm and no murmurs Peripheral Pulses: pulses 2+ throughout GI normal to inspection, nondistended, normoactive bowel sounds GI Narrative: Mild generalized tenderness. No guarding or rebound. Palpation: Negative for guarding or rebound tenderness present Back/Spine no CVA tenderness and no thoracic nor lumbar tenderness Extremity normal to inspection General Extremety ED: Negative for edema or tenderness General Extremity: Negative for edema Neuro oriented x3 and no sensory deficits noted Sensorium / Orientation: awake and alert Skin no rashes or lesions noted and no wounds MDM MDM MDM Narrative Medical decision making narrative: Interventions / MDM: Differential diagnosis: Cyclic vomiting Diagnosis considered but do not suspect: Bowel obstruction, normal bowel sounds, negative CT scan yesterday. My EKG interpretation: N/A Imaging independently reviewed and interpreted by myself: N/A External documents reviewed: N/A Test considered but not ordered:N/A ED course: Vital stable recurrent vomiting. History of recurrent THC use. IV established fluids. Reglan IV ordered. Pepcid ordered for her indigestion. Requiring additional IV Ativan. 2210: No current vomiting however still does not feel well. Labs look good still 15 from 16 yesterday. Electrolytes normal creatinine 1.12. Patient's third visit in 3 days with recurrent symptoms. IV fluids continued. Will discuss with hospitalist for admission. Discussed with hospitalist for admission. Re-evaluation: stable Disposition discussed with patient/family/significant other: Patient Case discussed with consulting clinician: Hospitalist This note was generated with [employer]ee dictation software. It may contain incorrect words, spelling, and punctuation that were not noted in checking the note before signing. Lab Data Attestation: I reviewed the patient's lab results. Labs: Laboratory Results - last 24 hr 12/25/22 20:05 WBC 15.1 H RBC 5.02 Hgb 14.5 Hct 44.3 MCV 88.2 MCH 28.9 MCHC 32.7 RDW Std Deviation 40.0 RDW Coeff of Fabian 12.3 Plt Count 271 MPV 9.2 Immature Gran % (Auto) 0.300 Neut % (Auto) 74.2 H Lymph % (Auto) 18.4 L [place] % (Auto) 6.6 Eos % (Auto) 0.2 Baso % (Auto) 0.3 Absolute Neuts (auto) 11.2 H Absolute Lymphs (auto) 2.78 Nucleated RBC % 0 Sodium 135 L Potassium 3.7 Chloride 105 Carbon Dioxide 24.0 Anion Gap 6 BUN 16 Creatinine 1.12 H Est GFR (MDRD) Af Amer 71 Est GFR (MDRD) Non-Af 58 L BUN/Creatinine Ratio 14.3 Glucose 126 H Calcium 9.1 Discharge Plan Dx/Rx/DC Orders Clinical Impression: Leukocytosis, Cyclical vomiting Disposition Disposition: Acute Care Hospital [facility] Discharge Date/Time: 12/25/22 23:50
--- NOTE | 2022-12-25 22:53 | PCM.HP.STD ---
HPI - General General Date of Admission: 12/25/22 Date of Service: 12/25/22 Chief Complaint: Intractable N/V. HPI Narrative The patient is a 37 y/o F w/ PMHx: Prior Hx Cannabis usage with serial visits for Cycle vomiting syndrome with cessation of cannabis following with Dr. Levy with notable improvement, unfortunately smoked cannabis 3 days prior to current presentation with onset following unfortunately recurrent intractable nausea and emesis with inability to keep anything down or stay hydrated prompting ED evaluation 3 days prior as well as day prior to current presentation with CT scan with no acute findings aside from a right ovarian cyst with improvement on Phenergan and discharged to home and continued to have emesis and did report that she did not use the suppositories at all and is now having indigestion prompting her return for repeat evaluation. Work-up in the ED included T97.7, heart rate 73, BP 148/94, respiratory rate 15, 100% on room air, CBC with WC 15.1, hemoglobin 14.5, platelet 271 with mild left shift, BMP with sodium 135, BUN/creatinine 16/1.12, glucose 126 otherwise not marked appearing. In the ED patient ministered 1 L normal saline as well as maintenance IV fluids, IV famotidine, Ativan 1 mg IV x1 as well as Reglan 5 mg IV x1. [facility] Medical History COVID-19 Cyclic vomiting syndrome Esophageal reflux Former tobacco use Marijuana smoker, episodic Home Medications NK 12/25/22 [History Last Taken Unknown] Allergy/AdvReac Type Severity Reaction Status Date / Time Fish Containing Products Allergy Swelling Verified 12/25/22 19:22 haloperidol [From Haldol] AdvReac Other Verified 12/25/22 19:22 Family History Mother Hypertension Hyperlipidemia Father Hypertension Hyperlipidemia Surgical History Status post cholecystectomy Social History household members: significant other Smoking Status: Former smoker how long ago did patient quit smoking: Quit 15 years prior to current presentation. alcohol intake: never substance use type: marijuana ROS ROS Narrative Admission Review of Systems: CONSTITUTIONAL: No weight loss, fever, chills,+ weakness or fatigue. HEENT: Eyes: No visual loss, blurred vision, double vision or yellow sclerae. Ears, Nose, Throat: No hearing loss, sneezing, congestion, runny nose or sore throat. SKIN: No rash or itching, lesions, wounds. CARDIOVASCULAR: No chest pain, chest pressure or chest discomfort, palpitations, edema, orthopnea, syncopal events. RESPIRATORY: No shortness of breath, cough or sputum, wheezing, hemoptysis. GASTROINTESTINAL: + anorexia, nausea, vomiting. No diarrhea, abdominal pain, melena, BRBPR. GENITOURINARY: No dysuria, frequency, urgency or retention. NEUROLOGICAL: No headache, dizziness, syncope, paralysis, ataxia, numbness or tingling in the extremities, focal weakness, change in bowel or bladder control, seizure. MUSCULOSKELETAL: + muscle, back pain, joint pain or stiffness. HEMATOLOGIC: No anemia, bleeding or bruising. LYMPHATICS: No enlarged nodes. No history of splenectomy. PSYCHIATRIC: No history of depression or anxiety. ENDOCRINOLOGIC: No reports of sweating, cold or heat intolerance. No polyuria or polydipsia. ALLERGIES: No history of asthma, hives, eczema or rhinitis. Vital Signs Vital Signs Vital Signs: 12/25/22 19:18 Temperature 97.7 F L Temperature Source Temporal Pulse Rate 73 Respiratory Rate 15 Blood Pressure 148/94 H Blood Pressure Mean 112 Pulse Ox 100 Oxygen Delivery Method Room Air Physical Exam Narrative Physical Examination: General: awake, alert, oriented x 3 and cooperative, laying on her side in the ED, fatigued and ill-appearing. Skin: normal color, turgor, no icterus, cyanosis. HEENT: AT/NC, EOMI, PERRLA, dry MM, no carotid bruits or JVD noted. Lungs: CTA bilaterally, moderate effort, no rales, ronchi or wheezing. Heart: Currently regular rate and rhythm; no gallop, rub audible. Abdomen: soft, NTTP, ND, mildly hyperactive BS, no HSM. Extremities: no cyanosis, clubbing, or edema. Neurological: patient awake, alert, oriented as noted; cognitive function intact; pupils equally reactive to light and accomodation; cranial nerves II-XII grossly normal, moving all 4 extremities, no focal deficits, strength mildly to moderately decreased secondary to acute presentation. Psychiatric: affect appears fatigued, ill-appearing, no acute evidence of depressive or anxiety feelings. Results Lab / Micro Data 12/25/22 20:05 12/25/22 20:05 Labs: Laboratory Results - last 24 hr 12/25/22 20:05: WBC 15.1 H, RBC 5.02, Hgb 14.5, Hct 44.3, MCV 88.2, MCH 28.9, MCHC 32.7, RDW Std Deviation 40.0, RDW Coeff of Fabian 12.3, Plt Count 271, MPV 9.2, Immature Gran % (Auto) 0.300, Neut % (Auto) 74.2 H, Lymph % (Auto) 18.4 L, [place] % (Auto) 6.6, Eos % (Auto) 0.2, Baso % (Auto) 0.3, Absolute Neuts (auto) 11.2 H, Absolute Lymphs (auto) 2.78, Nucleated RBC % 0, Sodium 135 L, Potassium 3.7, Chloride 105, Carbon Dioxide 24.0, Anion Gap 6, BUN 16, Creatinine 1.12 H, Est GFR (MDRD) Af Amer 71, Est GFR (MDRD) Non-Af 58 L, BUN/Creatinine Ratio 14.3, Glucose 126 H, Calcium 9.1 Assessment & Plan Assessment/Plan (1) Cyclical vomiting: PLAN: Plan The patient is a 37 y/o F w/ PMHx: Prior Hx Cannabis usage with serial visits for Cycle vomiting syndrome with cessation of cannabis following with Dr. Levy with notable improvement, unfortunately smoked cannabis 3 days prior to current presentation with onset following unfortunately recurrent intractable nausea and emesis with inability to keep anything down or stay hydrated prompting ED evaluation 3 days prior as well as day prior to current presentation with CT scan with no acute findings aside from a right ovarian cyst with improvement on Phenergan and discharged to home and continued to have emesis and did report that she did not use the suppositories at all and is now having indigestion prompting her return for repeat evaluation. #1. Recurrent intractable cyclic nausea and vomiting with recent recurrent cannabis usage: Patient with significant history previously, had stopped and unfortunately used cannabis 3 days prior with immediate onset of symptoms again, will admit to medical surgical floor, maintain on IV fluids, maintain on IV PPI, allow clears and advance diet as tolerated once improving, will continue scheduled Reglan, will have [place] Phenergan which was very effective for patient previously as well, unfortunately she does have an allergy listed to Haldol. #2. Acute renal insufficiency secondary to intractable nausea and emesis: Admission BUN/creatinine 16/1.12 with baseline creatinine noted to be primarily 0.8-0.9, will continue aggressive hydration with repeat CMP in AM. #3. Leukocytosis, mild: Admission CBC with WC 15.1 with left shift, afebrile, suspect secondary to dehydration, CT abdomen pelvis today prior with no acute findings, will continue to treat as noted and repeat CBC in AM. Procalcitonin requested. #4. Hyponatremia, mild, hypervolemic with GI losses as noted: Admission sodium 135, continue hydration as noted, repeat CMP in AM. #5. Hyperglycemia, mild: Likely stress response, admission glucose 126, continue treatments as noted, repeat CMP in AM. #6. Elevated BP without hypertensive diagnosis: Patient with mildly elevated BP in the ED, likely secondary to nausea and emesis, will continue to monitor and if necessary add regimen, as needed IV hydralazine. #7. Former tobacco use: Encourage continued tobacco cessation. #8. DVT prophylaxis: Low risk. Charges/Coding Visit Charges Inpatient E&M: 74242 Init Hosp L2
[2022-12-25] MEDS: 0.9% Normal Saline (1000mL) 1,000 ML 150 ML IV (22:56)
[2022-12-25 23:32] VITALS: BP 128/98; PULSE 68; RESP 14; TEMP 36.4; O2SAT 98
[2022-12-25 23:33] VITALS: BMI 27.3
[2022-12-25] MEDS: Ondansetron 4 MG/2 ML Vial IV (23:43)
[2022-12-25] MEDS: Hyoscyamine Sulfate 0.125 MG Tablet SL (23:47)
[2022-12-26 00:40] VITALS: BP 120/87; PULSE 78; RESP 16; TEMP 37.1; O2SAT 100; BMI 25.2
[2022-12-26 00:42] LABS: Procalcitonin < 0.01 ng/mL (0.00-0.09)
[2022-12-26 03:00] VITALS: BP 134/98; PULSE 68; RESP 16; TEMP 37.1; O2SAT 98
[2022-12-26] MEDS: Metoclopramide 10 MG/2 ML Vial 5 MG IV ×3 (04:10→20:53)
[2022-12-26] MEDS: 0.9% Normal Saline (1000mL) 1,000 ML 150 ML IV ×2 (04:37→06:10)
[2022-12-26] MEDS: proMETHazine 25 MG Suppos. RC ×4 (05:17→22:18)
[2022-12-26 06:45] LABS: Absolute Lymphocyte Count 3.58 X10^3/uL (0.83-4.51); Absolute Neutrophil Count 8.1 X10^3/uL (2.0-7.7); Basophil# 0.05 X10^3/uL; Basophil% 0.4 % (0-1); Eosinophil# 0.09 X10^3/uL; Eosinophils% 0.7 % (0-5); Hematocrit 38.1 % (37-47); Hemoglobin 12.6 g/dL (12.0-15.0); Lymphocyte # 3.58 X10^3/ul (0.83-4.51); Lymphocyte % 27.8 % (19-41); Mean Corp Hgb Conc 33.1 g/dL (32-36); Mean Corpuscular Hgb 29.2 pg (27.0-32.0); Mean Corpuscular Volume 88.2 fL (81-99); Mean Platelet Vol. 9.4 fl (6.2-12.0); Monocyte% 7.8 % (0-10); NRBC Flagged by Analyzer 0 % (0-5); Neutrophil # 8.13 X10^3/uL (2.7-7.7); Platelet Count 237 K/mm3 (150-450); RBC Distribution Width CV 12.1 % (11.6-14.6); RBC Distribution Width SD 39.1 fl (35.1-43.9); Red Blood Count 4.32 M/mm3 (4.2-5.4); White Blood Count 12.9 K/mm3 (4.4-11.0)
[2022-12-26 07:24] LABS: ALB/GLOB Ratio 1.1 RATIO (0.9-2.4); AST(SGOT) 11 U/L (15-37); Alanine Aminotransfer ALT/SGPT 23 U/L (13-56); Albumin, Serum 3.5 g/dL (3.2-5.0); Alkaline Phosphatase 68 U/L (45-117); Anion Gap 6 (5-15); BUN 15 mg/dL (7-18); BUN/Creat Ratio 14.7 RATIO (10-20); Chloride 111 mmol/L (98-107); Creatinine, Serum 1.02 mg/dL (0.55-1.02); EST Glomerular Filtration Rate 65 mL/min (>60); Est Glom Filt Rate - Afr Amer 79 mL/min (>60); Estimated Creatinine Clearance 63.07 ml/min; Globulin 3.3 g/dL (2.2-4.2); Glucose 99 mg/dL (74-106); Potassium 2.9 mmol/L (3.5-5.1); Protein, Total 6.8 g/dL (6.4-8.2); Sodium Level 142 mmol/L (136-145)
[2022-12-26 07:36] VITALS: O2SAT 98
[2022-12-26] MEDS: proMETHazine 25 MG/ML Syringe 12.5 MG IM (09:07)
[2022-12-26] MEDS: Potassium Chloride 10mEq/100mL 10 MEQ/100 ML IV.SOLN. 100 MEQ IV BOLUS ×4 (09:49→14:08)
[2022-12-26] MEDS: Famotidine 200 MG/20 ML MDV 20 MG in 0.9% Normal Saline (Pres. free 8 ML 300 MG IV (11:11)
[2022-12-26 11:16] VITALS: BP 132/75; PULSE 64; RESP 16; TEMP 37.1; O2SAT 98
--- NOTE | 2022-12-26 12:07 | PN.HOSP_ITS ---
Reason for Visit Reason for Visit: Diagnoses Cyclical vomiting syndrome unrelated to migraine (12/25/22) Subjective Subjective Patient is a 37-year-old lady presented with intractable nausea and vomiting Objective Data Objective Data Vital Signs: Vital Signs Temp Pulse Resp BP Pulse Ox O2 Del Method 98.7 F 64 16 132/75 H 98 Room Air 12/26/22 11:16 12/26/22 11:16 12/26/22 11:16 12/26/22 11:16 12/26/22 11:16 12/26/22 11:16 Oxygen Delivery Method Room Air Weight: 64.6 kg Body Mass Index (BMI) 25.2 Intake & Output: Intake and Output for Last 24 Hours 12/24/22 12/25/22 12/26/22 23:59 23:59 23:59 Intake Total 1010 / 1010 1192.5 / 1192.5 Balance 1010 / 1010 1192.5 / 1192.5 Lab / Micro Data 12/26/22 05:53 12/26/22 05:53 Labs: Laboratory Results - last 24 hr 12/25/22 20:05: WBC 15.1 H, RBC 5.02, Hgb 14.5, Hct 44.3, MCV 88.2, MCH 28.9, MCHC 32.7, RDW Std Deviation 40.0, RDW Coeff of Fabian 12.3, Plt Count 271, MPV 9.2, Immature Gran % (Auto) 0.300, Neut % (Auto) 74.2 H, Lymph % (Auto) 18.4 L, [place] % (Auto) 6.6, Eos % (Auto) 0.2, Baso % (Auto) 0.3, Absolute Neuts (auto) 11.2 H, Absolute Lymphs (auto) 2.78, Nucleated RBC % 0, Sodium 135 L, Potassium 3.7, Chloride 105, Carbon Dioxide 24.0, Anion Gap 6, BUN 16, Creatinine 1.12 H, Est GFR (MDRD) Af Amer 71, Est GFR (MDRD) Non-Af 58 L, BUN/Creatinine Ratio 14.3, Glucose 126 H, Calcium 9.1 12/25/22 23:44: Procalcitonin < 0.01 12/26/22 05:53: WBC 12.9 H, RBC 4.32, Hgb 12.6, Hct 38.1, MCV 88.2, MCH 29.2, MCHC 33.1, RDW Std Deviation 39.1, RDW Coeff of Fabian 12.1, Plt Count 237, MPV 9.4, Immature Gran % (Auto) 0.300, Neut % (Auto) 63.0, Lymph % (Auto) 27.8, [place] % (Auto) 7.8, Eos % (Auto) 0.7, Baso % (Auto) 0.4, Absolute Neuts (auto) 8.1 H, Absolute Lymphs (auto) 3.58, Nucleated RBC % 0, Sodium 142, Potassium 2.9 L, Chloride 111 H, Carbon Dioxide 25.0, Anion Gap 6, BUN 15, Creatinine 1.02, Estim Creat Clear Calc 63.07, Est GFR (MDRD) Af Amer 79, Est GFR (MDRD) Non-Af 65, BUN/Creatinine Ratio 14.7, Glucose 99, Calcium 8.0 L, Total Bilirubin 0.70, AST 11 L, ALT 23, Alkaline Phosphatase 68, Total Protein 6.8, Albumin 3.5, Globulin 3.3, Albumin/Globulin Ratio 1.1 Physical Exam Narrative GENERAL: Appears to be in some distress HEENT: Atraumatic; normocephalic EYES; Anicteric, Normal Conjunctiva NECK; supple, normal thyroid, RESPIRATORY: Diminished to auscultation CARDIOVASCULAR: Regular S1 S2, GI: soft, normoactive bowel sounds, : No Renal angle tenderness; EXTREMITIES: No edema, no clubbing, MUSCULOSKELETAL: no muscle wasting NEURO: Awake; no lateralizing signs. SKIN: No Rash PSYCH; Flat affect Assessment & Plan Assessment/Plan (1) Cyclical vomiting: PLAN: Plan Patient is a 37-year-old lady presented with intractable nausea and vomiting 1. Cannabinoid induced cyclical vomiting ? Admitted to regular nursing floor for symptomatic management with antiemetics as well as PPI 2. Hypokalemia ? Secondary to above corrected per protocol 3. Acute renal insufficiency ? Secondary to inability to keep any food down rehydrated with subsequent monitoring of electrolytes ordered 4. DVT prophylaxis ? Low risk with encouraging ambulation Time spent in the patient's overall evaluation,decision-making process, review of diagnostic data, adjustment of management, discussion with other providers, nursing nursing and ancillary staff involved in patient's care documentation, 35 Minutes Charges/Coding Visit Charges Inpatient E&M: 77641 Subs Hosp L2
[2022-12-26] MEDS: Ensure Clear 120 ML Liquid PO (14:02)
[2022-12-26 14:36] LABS: Anion Gap 6 (5-15); BUN 12 mg/dL (7-18); BUN/Creat Ratio 11.7 RATIO (10-20); Calcium,Total 8.3 mg/dL (8.5-10.1); Chloride 110 mmol/L (98-107); Creatinine, Serum 1.03 mg/dL (0.55-1.02); EST Glomerular Filtration Rate 64 mL/min (>60); Est Glom Filt Rate - Afr Amer 78 mL/min (>60); Estimated Creatinine Clearance 62.46 ml/min; Glucose 101 mg/dL (74-106); Magnesium 2.3 mg/dL (1.6-2.6); Potassium 3.5 mmol/L (3.5-5.1); Sodium Level 139 mmol/L (136-145)
[2022-12-26] MEDS: Acetaminophen 650 MG Suppository RC (16:37)
[2022-12-26] MEDS: Pantoprazole Sodium 40 MG in 0.9% Normal Saline (100mL MB+) 100 ML 330 MG IV ×2 (16:39→20:56)
--- NOTE | 2022-12-26 16:39 | EX.PCM.CON.G ---
HPI Consult Data Date of Consult: 12/26/22 HPI Narrative Reason for Consultation: Intractable nausea vomiting HPI Narrative: SYLVIE MERCADO, is a 37 F who presented with acute onset of nausea and vomiting. She was diagnosed with marijuana hyperemesis in the past. I saw her approximately a year ago for the same diagnosis and she was discovered to have an upper GI bleed secondary to Laureen-Mcleod tear. She has a past medical history of anxiety, cyclic vomiting syndrome and marijuana hematemesis. She smokes marijuana daily basis so she does not have to take any medicines for anxiety. She has been told in the past that she has marijuana hyperemesis however she does not think so. She says that the only way that she cannot be nauseous is to smoke marijuana. She has no history of migraine disorder and does not suffer from nausea vomiting from her menstrual cycle. She has no family members with similar symptoms. She has 2 of her own children that are in good health with no medical history. She does not take any medicines on a daily basis. She has not been able to eat anything or drink anything over the last several days. I was consulted for management of nausea and vomiting. [facility] Medical History COVID-19 Cyclic vomiting syndrome Esophageal reflux Former tobacco use Marijuana smoker, episodic Home Medications NK 12/25/22 [History Last Taken Unknown] Allergy/AdvReac Type Severity Reaction Status Date / Time Fish Containing Products Allergy Swelling Verified 12/25/22 19:22 haloperidol [From Haldol] AdvReac Other Verified 12/25/22 19:22 Family History Mother Hypertension Hyperlipidemia Father Hypertension Hyperlipidemia Surgical History Status post cholecystectomy Social History household members: significant other Smoking Status: Former smoker how long ago did patient quit smoking: Quit 15 years prior to current presentation. alcohol intake: never substance use type: marijuana ROS ROS Narrative Admission Review of Systems: CONSTITUTIONAL: No weight loss, fever, chills,+ weakness or fatigue. HEENT: Eyes: No visual loss, blurred vision, double vision or yellow sclerae. Ears, Nose, Throat: No hearing loss, sneezing, congestion, runny nose or sore throat. SKIN: No rash or itching, lesions, wounds. CARDIOVASCULAR: No chest pain, chest pressure or chest discomfort, palpitations, edema, orthopnea, syncopal events. RESPIRATORY: No shortness of breath, cough or sputum, wheezing, hemoptysis. GASTROINTESTINAL: + anorexia, nausea, vomiting. No diarrhea, abdominal pain, melena, BRBPR. GENITOURINARY: No dysuria, frequency, urgency or retention. NEUROLOGICAL: No headache, dizziness, syncope, paralysis, ataxia, numbness or tingling in the extremities, focal weakness, change in bowel or bladder control, seizure. MUSCULOSKELETAL: + muscle, back pain, joint pain or stiffness. HEMATOLOGIC: No anemia, bleeding or bruising. LYMPHATICS: No enlarged nodes. No history of splenectomy. PSYCHIATRIC: No history of depression or anxiety. ENDOCRINOLOGIC: No reports of sweating, cold or heat intolerance. No polyuria or polydipsia. ALLERGIES: No history of asthma, hives, eczema or rhinitis. Physical Exam Narrative GENERAL: Appears to be in some distress HEENT: Atraumatic; normocephalic EYES; Anicteric, Normal Conjunctiva NECK; supple, normal thyroid, RESPIRATORY: Diminished to auscultation CARDIOVASCULAR: Regular S1 S2, GI: soft, normoactive bowel sounds, : No Renal angle tenderness; EXTREMITIES: No edema, no clubbing, MUSCULOSKELETAL: no muscle wasting NEURO: Awake; no lateralizing signs. SKIN: No Rash PSYCH; Flat affect Lab / Micro Data 12/27/22 05:32 12/27/22 05:32 Labs: Laboratory Results - last 24 hr 12/27/22 05:32: WBC 11.8 H, RBC 4.31, Hgb 12.5, Hct 37.8, MCV 87.7, MCH 29.0, MCHC 33.1, RDW Std Deviation 38.4, RDW Coeff of Fabian 11.9, Plt Count 249, MPV 9.0, Immature Gran % (Auto) 0.300, Neut % (Auto) 68.0, Lymph % (Auto) 23.8, [place] % (Auto) 6.5, Eos % (Auto) 1.1, Baso % (Auto) 0.3, Absolute Neuts (auto) 8.0 H, Absolute Lymphs (auto) 2.81, Nucleated RBC % 0, Sodium 136, Potassium 3.1 L, Chloride 106, Carbon Dioxide 25.0, Anion Gap 5, BUN 8, Creatinine 0.88, Estim Creat Clear Calc 73.11, Est GFR (MDRD) Af Amer 93, Est GFR (MDRD) Non-Af 77, BUN/Creatinine Ratio 9.1 L, Glucose 134 H, Calcium 8.4 L, Phosphorus 2.3 L, Magnesium 2.1 Assessment & Plan Assessment/Plan (1) Intractable vomiting: PLAN: She should get scopolamine patch, rectal Compazine, Xanax and IV Reglan. She has not had any vomiting but she still complains of nausea. I do not know if her nausea is all secondary to issues with her GI tract. Of note, she has a pre-existing diagnosis of cyclic vomiting syndrome that I believe has been exacerbated by chronic marijuana usage. Likely her nausea and complaints have a supratentorial component. I am not sure she has depression. She already has a diagnosis of anxiety and is not being treated. (2) Marijuana use: PLAN: There have been some studies with buspirone 10 mg 3 times a day for marijuana hyperemesis in patients that are refractory to haloperidol. That may be some usage in the future. PLAN: Plan She will also undergo an upper endoscopy to evaluate upper GI tract. She was explained alternatives, risk, benefit including outstanding bleeding, infection, sepsis, perforation, need for emergent surgery . She have an ASA of 2. Charges/Coding Visit Charges Inpatient E&M: 68099 Init Hosp L3
[2022-12-26 16:47] VITALS: BP 148/96; PULSE 62; RESP 16; TEMP 37.2; O2SAT 100
[2022-12-26 20:52] VITALS: BP 111/80; PULSE 65; RESP 17; TEMP 37; O2SAT 98
[2022-12-27] VITALS (9 sets, daily range): BP systolic 103–139; BP diastolic 70–94; PULSE 60–111; RESP 16–18; TEMP 36.6–37.1; O2SAT 98–100
--- NOTE | 2022-12-27 | GASB_PTH ---
PATIENT: SYLVIE MERCADO LOC: [facility] U#:[id number] AGE/SX: 37/F ROOM: [facility] RE12/25/[address]: Dr. Talita Santizo MD : [id number] BED: 1 DIS: 12/28/2022 SPEC #: [id number] RECD: 12/27/22 18:24 STATUS: EARNEST REQ #: [id number] ALEN: 12/27/22 00:[address]: Florentin Levy DEPT: SURGICAL PATHOLOGY RECD BY: Adryan Gomez ENTERED: 12/30/22 09:31 SP TYPE: Gastric Bx OTHR DR: MD Dr. Robert Winston MD Dr. Jordan Garrison, DO Dr. Paige Pierce, MD Tissues: A - Duodenum, NOS B - Gastric mucous membrane Procedures: Surgery Specimen Level IV Comments: @ Ordering doctor for SUIV edited from to @ by CLIFFORD at 12/30/22 1409 @ Submitting doctor edited from to @ by RGOOD at 12/30/22 1409 HEADER OPERATION: EGD with biopsies PRE-OP DIAGNOSIS: Intractable nausea and vomiting TISSUE SUBMITTED: A - Duodenum, B - Gastric body MICROSCOPIC DIAGNOSIS A. Duodenum, biopsy: Chronic nonspecific duodenitis. B. Gastric body, biopsy: Mild chronic gastritis. See comment. AM:kari 12/31/2022 COMMENT B. The results of immunohistochemistry for Helicobacter pylori will be reported separately ([id number]). MICROSCOPIC DESCRIPTION Slides are reviewed. GROSS DESCRIPTION A - Received in fixative is one container labeled with the patient's name and designated duodenum. The specimen consists of two irregular fragments of light hernández soft tissue that in aggregate measure 0.6 x 0.6 x 0.1 cm. The specimen is totally submitted in one cassette. B - Received in fixative is one container labeled with the patient's name and designated gastric body. The specimen consists of two irregular fragments of light hernández soft tissue that in aggregate measure 0.6 x 0.2 x 0.1 cm. The specimen is totally submitted in one cassette. / AM:kari 12/30/2022 TC:3 CPT: 01418 x2
[2022-12-27] MEDS: proMETHazine 25 MG Suppos. RC ×2 (03:09→09:22)
[2022-12-27] MEDS: Acetaminophen 650 MG Suppository RC (05:14)
[2022-12-27] MEDS: Metoclopramide 10 MG/2 ML Vial 5 MG IV ×3 (05:14→20:59)
[2022-12-27 06:20] LABS: Absolute Lymphocyte Count 2.81 X10^3/uL (0.83-4.51); Basophil# 0.04 X10^3/uL; Basophil% 0.3 % (0-1); Eosinophil# 0.13 X10^3/uL; Eosinophils% 1.1 % (0-5); Hematocrit 37.8 % (37-47); Hemoglobin 12.5 g/dL (12.0-15.0); Lymphocyte # 2.81 X10^3/ul (0.83-4.51); Lymphocyte % 23.8 % (19-41); Mean Corp Hgb Conc 33.1 g/dL (32-36); Mean Corpuscular Volume 87.7 fL (81-99); Monocyte# 0.77 X10^3/uL; Monocyte% 6.5 % (0-10); NRBC Flagged by Analyzer 0 % (0-5); Neutrophil # 8.04 X10^3/uL (2.7-7.7); Platelet Count 249 K/mm3 (150-450); RBC Distribution Width CV 11.9 % (11.6-14.6); RBC Distribution Width SD 38.4 fl (35.1-43.9); Red Blood Count 4.31 M/mm3 (4.2-5.4); White Blood Count 11.8 K/mm3 (4.4-11.0)
[2022-12-27 07:10] LABS: Anion Gap 5 (5-15); BUN 8 mg/dL (7-18); BUN/Creat Ratio 9.1 RATIO (10-20); Calcium,Total 8.4 mg/dL (8.5-10.1); Chloride 106 mmol/L (98-107); Creatinine, Serum 0.88 mg/dL (0.55-1.02); EST Glomerular Filtration Rate 77 mL/min (>60); Est Glom Filt Rate - Afr Amer 93 mL/min (>60); Estimated Creatinine Clearance 73.11 ml/min; Glucose 134 mg/dL (74-106); Magnesium 2.1 mg/dL (1.6-2.6); Phosphorus 2.3 mg/dL (2.5-4.9); Potassium 3.1 mmol/L (3.5-5.1); Sodium Level 136 mmol/L (136-145)
--- NOTE | 2022-12-27 08:57 | PCM.PN.HOSP ---
Reason for Visit Reason for Visit: Diagnoses Cyclical vomiting syndrome unrelated to migraine (12/25/22) Subjective Subjective Patient seen complains of intractable nausea as well as abdominal pain. Did order 4 mg of morphine 1 time. Objective Data Objective Data Vital Signs: Vital Signs Temp Pulse Resp BP Pulse Ox O2 Del Method 98.2 F 65 17 132/78 H 99 Room Air 12/27/22 03:05 12/27/22 03:05 12/27/22 03:05 12/27/22 03:05 12/27/22 03:05 12/27/22 08:36 Oxygen Delivery Method Room Air Weight: 64.6 kg Body Mass Index (BMI) 25.2 Intake & Output: Intake and Output for Last 24 Hours 12/25/22 12/26/22 12/27/22 23:59 23:59 23:59 Intake Total 1010 / 1010 3012.5 / 3012.5 Balance 1010 / 1010 3012.5 / 3012.5 Lab / Micro Data 12/27/22 05:32 12/27/22 05:32 Labs: Laboratory Results - last 24 hr 12/26/22 13:42: Sodium 139, Potassium 3.5, Chloride 110 H, Carbon Dioxide 23.0, Anion Gap 6, BUN 12, Creatinine 1.03 H, Estim Creat Clear Calc 62.46, Est GFR (MDRD) Af Amer 78, Est GFR (MDRD) Non-Af 64, BUN/Creatinine Ratio 11.7, Glucose 101, Calcium 8.3 L, Magnesium 2.3 12/27/22 05:32: WBC 11.8 H, RBC 4.31, Hgb 12.5, Hct 37.8, MCV 87.7, MCH 29.0, MCHC 33.1, RDW Std Deviation 38.4, RDW Coeff of Fabian 11.9, Plt Count 249, MPV 9.0, Immature Gran % (Auto) 0.300, Neut % (Auto) 68.0, Lymph % (Auto) 23.8, Starr % (Auto) 6.5, Eos % (Auto) 1.1, Baso % (Auto) 0.3, Absolute Neuts (auto) 8.0 H, Absolute Lymphs (auto) 2.81, Nucleated RBC % 0, Sodium 136, Potassium 3.1 L, Chloride 106, Carbon Dioxide 25.0, Anion Gap 5, BUN 8, Creatinine 0.88, Estim Creat Clear Calc 73.11, Est GFR (MDRD) Af Amer 93, Est GFR (MDRD) Non-Af 77, BUN/Creatinine Ratio 9.1 L, Glucose 134 H, Calcium 8.4 L, Phosphorus 2.3 L, Magnesium 2.1 Physical Exam Narrative GENERAL: Appears to be in some distress HEENT: Atraumatic; normocephalic EYES; Anicteric, Normal Conjunctiva NECK; supple, normal thyroid, RESPIRATORY: Diminished to auscultation CARDIOVASCULAR: Regular S1 S2, GI: soft, normoactive bowel sounds, : No Renal angle tenderness; EXTREMITIES: No edema, no clubbing, MUSCULOSKELETAL: no muscle wasting NEURO: Awake; no lateralizing signs. SKIN: No Rash PSYCH; Flat affect Assessment & Plan Assessment/Plan (1) Cyclical vomiting: PLAN: Plan Patient is a 37-year-old lady presented with intractable nausea and vomiting 1. Cannabinoid induced cyclical vomiting ? Admitted to regular nursing floor for symptomatic management with antiemetics as well as PPI ? 12/27/2022; patient still has significant abdominal pain and nausea. Consult placed to GI for possible endoscopy 2. Hypokalemia ? Secondary to above corrected per protocol 3. Acute renal insufficiency ? Secondary to inability to keep any food down rehydrated with subsequent monitoring of electrolytes ordered 4. DVT prophylaxis ? Low risk with encouraging ambulation Time spent in the patient's overall evaluation,decision-making process, review of diagnostic data, adjustment of management, discussion with other providers, nursing nursing and ancillary staff involved in patient's care documentation, 35 Minutes Charges/Coding Visit Charges Inpatient E&M: 59361 Subs Hosp L2
[2022-12-27] MEDS: Pantoprazole Sodium 40 MG in 0.9% Normal Saline (100mL MB+) 100 ML 330 MG IV ×2 (09:20→21:00)
[2022-12-27] MEDS: 0.9% Saline Lock 10 ML Syringe IV ×4 (09:21→21:00)
[2022-12-27] MEDS: Morphine 4 MG/ML Syringe IV (10:26)
--- NOTE | 2022-12-27 16:30 | IMM_PTH ---
PATIENT: SYLVIE MERCADO LOC: [facility] U#:[id number] AGE/SX: 37/F ROOM: [facility] RE12/25/[address]: Dr. Talita Santizo MD : 1985 BED: 1 DIS: 12/28/2022 SPEC #: [id number] RECD: 12/30/22 13:14 STATUS: EARNEST REQ #: [id number] ALEN: 12/27/22 16:[address]: Florentin Levy DEPT: IMMUNOHISTOCHEMISTRY RECD BY: Nia Blood ENTERED: 12/30/22 13:14 SP TYPE: IMMUNO OTHR DR: MD Dr. Robert Winston MD Dr. Jordan Garrison, DO Dr. Talita Santizo MD Tissues: B - Stomach, NOS Procedures: H Pylori (initial) PHYSICIAN & INSTITUTION [place] [address] SPECIMEN INFORMATION: Tissue Source: B - Gastric body Clinical Info: Intractable nausea and vomiting Specimen Number: [id number] CPT code: 14442 METHODOLOGY: Deparaffinized sections of prefer/formalin-fixed tissue or PAP/DQ stained slides are incubated with monoclonal/polyclonal antibodies/oligonucleotide probes. Localization is made via biotin free immunoperoxidase method. Appropriate controls are performed and reacted as expected. Results on target cell population are indicated in the following table: RESULTS: ANTIBODY / CLONE RESULT Block B H Pylori (polyclonal) negative These tests were developed and their performance characteristics determined by [facility]. They may not have been cleared or approved by the U.S. Food and Drug Administration. The FDA has determined that such clearance or approval is not necessary. The above immunohistochemical/dualISH markers are ordered and reviewed by the Pathologist. INTERPRETATION: B. Gastric body, biopsy: Negative for Helicobacter pylori organisms. AM:kari 12/31/2022
[2022-12-27 17:08] LABS: Internal QC Validated? YES +Cl - CLEAR BKGD; Pregnancy, Serum, hCG Quali. NEGATIVE Negative
--- NOTE | 2022-12-27 18:05 | OP.EGD_ITS ---
Patient Name: Fadia Pineda Procedure Date: 12/27/2022 5:42 PM Date of : 1985 Age: 37 Procedure: Upper GI endoscopy Indications: Epigastric abdominal pain, Functional Dyspepsia, Failure to respond to medical treatment Providers: Florentin Levy DO Medicines: Monitored Anesthesia Care Patient Profile: This is a 37 year old female. Refer to note in patient chart for documentation of history and physical. Patient has symptoms of acute nausea and acute vomiting. Complications: No immediate complications. Procedure: Pre-Anesthesia Assessment: - Prior to the procedure, a History and Physical was performed, and patient medications and allergies were reviewed. The patient is competent. The risks and benefits of the procedure and the sedation options and risks were discussed with the patient. All questions were answered and informed consent was obtained. Patient identification and proposed procedure were verified by the physician in the pre-procedure area. Mental Status Examination: alert and oriented. Airway Examination: normal oropharyngeal airway and neck mobility. Respiratory Examination: clear to auscultation. CV Examination: normal. Prophylactic Antibiotics: The patient does not require prophylactic antibiotics. Prior Anticoagulants: The patient has taken no anticoagulant or antiplatelet agents. ASA Grade Assessment: II - A patient with mild systemic disease. After reviewing the risks and benefits, the patient was deemed in satisfactory condition to undergo the procedure. The anesthesia plan was to use monitored anesthesia care (MAC). Immediately prior to administration of medications, the patient was re-assessed for adequacy to receive sedatives. The heart rate, respiratory rate, oxygen saturations, blood pressure, adequacy of pulmonary ventilation, and response to care were monitored throughout the procedure. The physical status of the patient was re-assessed after the procedure. After obtaining informed consent, the endoscope was passed under direct vision. Throughout the procedure, the patient's blood pressure, pulse, and oxygen saturations were monitored continuously. The gastroscope was introduced through the mouth, and advanced to the second part of duodenum. The upper GI endoscopy was accomplished without difficulty. The patient tolerated the procedure well. Scope In: 5:53:24 PM Scope Out: 5:56:18 PM Total Procedure Duration Time 0 hours 2 minutes 54 seconds Findings: No gross lesions were noted in the entire esophagus. A small hiatal hernia was present. No other significant abnormalities were identified in a careful examination of the stomach. Patchy mildly erythematous mucosa without active bleeding and with no stigmata of bleeding was found in the duodenal bulb. Biopsies were taken with a cold forceps for histology. Verification of patient identification for the specimen was done. Estimated blood loss was minimal. Impression: - No gross lesions in the entire esophagus. - Small hiatal hernia. - Erythematous duodenopathy. Biopsied. Recommendation: - Return patient to hospital ly for ongoing care. -Scopolamine patch every 72 hours -Ativan 0.5 mg IV every 6 hours - Advance diet as tolerated. - Continue present medications. - Await pathology results. Procedure Code(s): --- Professional --- 58511, Esophagogastroduodenoscopy, flexible, transoral; with biopsy, single or multiple CPT copyright 2021 [employer]. All rights reserved. The codes documented in this report are preliminary and upon carbide tool maker review may be revised to meet current compliance requirements. Florentin Levy DO 12/27/2022 6:04:50 PM This report has been signed electronically. Number of Addenda: 0 Note Initiated On: 12/27/2022 5:42 PM
--- NOTE | 2022-12-27 18:05 | OP.CCLET_ITS ---
12/27/2022 Sergio Grover [address] [place] [address] Re : Upper GI endoscopy procedure for Fadia Pineda Dear Dr. Grover This procedure was performed on Tuesday, December 27, 2022. My impressions and recommendations are as follows: Impressions : - No gross lesions in the entire esophagus. - Small hiatal hernia. - Erythematous duodenopathy. Biopsied. Recommendations : - Return patient to hospital ly for ongoing care. -Scopolamine patch every 72 hours -Ativan 0.5 mg IV every 6 hours - Advance diet as tolerated. - Continue present medications. - Await pathology results. My findings are described in the full procedure note, which is enclosed. If I can be of further assistance, please feel free to contact me at . Sincerely, Florentin Friend, 12/27/2022 6:04:50 PM This report has been signed electronically.
[2022-12-27] MEDS: Scopolamine 1mg/72hr Patch 1 PATCH TD (18:47)
--- NOTE | 2022-12-27 18:52 | CASEMGMT ---
RN?CM?STRETCHING PRESS OPERATOR?CM?to room to meet with patient for initial transition planning/care coordination?assessment.?RN?CM?introduced self and role at [facility].? Pt voices understanding and consents to?assessment?at this time.? Pt resting in bed in no distress at this time.? Pt is A/O at this time and answers all questions appropriately.?? Care providers, pharmacy, and demographics verified/updated at this time. PCP: Reilly Specialists: Friend Preferred Pharmacy: [facility] Insurance: [employer] Prescription Benefit: [employer] Living Will/HPOA: Pt does not have LW/HPOA LNOK: Barb Young, sig other; Jesica Strong, mother Living Arrangements: Pt lives with sig other and 4 kids in 3- story home w/basement and states no concerns at home. Pt is independent with ADL's. Transportation: Pt drives self and states no transportation concerns. DME/HHC: Pt states no current DME or need for any further DME. Pt states no hx of HHC or SNF. Pt wishes to return home and states has no concerns with going home at time of discharge.?CM?to follow for any discharge planning/needs.? Pt voices no concerns/needs at this time.? Advised pt to ask for?CM?if any questions/concerns/needs arise.? Voices understanding. PLAN:??Home Jeronimo ARRIAGAN?RN?CM
[2022-12-28] MEDS: LORazepam 2 MG/ML Syringe 0.5 MG IV ×2 (00:16→06:19)
[2022-12-28] MEDS: 0.9% Saline Lock 10 ML Syringe IV ×2 (00:17→06:19)
[2022-12-28 03:27] VITALS: BP 100/69; PULSE 80; RESP 18; TEMP 36.7; O2SAT 99
[2022-12-28] MEDS: Metoclopramide 10 MG/2 ML Vial 5 MG IV (06:21)
[2022-12-28 08:00] LABS: Absolute Lymphocyte Count 2.88 X10^3/uL (0.83-4.51); Absolute Neutrophil Count 5.6 X10^3/uL (2.0-7.7); Basophil# 0.02 X10^3/uL; Basophil% 0.2 % (0-1); Eosinophil# 0.24 X10^3/uL; Eosinophils% 2.6 % (0-5); Hematocrit 36.8 % (37-47); Hemoglobin 12.3 g/dL (12.0-15.0); Lymphocyte # 2.88 X10^3/ul (0.83-4.51); Lymphocyte % 30.8 % (19-41); Mean Corp Hgb Conc 33.4 g/dL (32-36); Mean Corpuscular Hgb 29.1 pg (27.0-32.0); Mean Corpuscular Volume 87.2 fL (81-99); Mean Platelet Vol. 8.7 fl (6.2-12.0); Monocyte# 0.55 X10^3/uL; Monocyte% 5.9 % (0-10); NRBC Flagged by Analyzer 0 % (0-5); Neutrophil # 5.64 X10^3/uL (2.7-7.7); Neutrophil % 60.3 % (47-70); Platelet Count 232 K/mm3 (150-450); RBC Distribution Width CV 11.8 % (11.6-14.6); RBC Distribution Width SD 37.6 fl (35.1-43.9); Red Blood Count 4.22 M/mm3 (4.2-5.4); White Blood Count 9.4 K/mm3 (4.4-11.0)
[2022-12-28 08:24] VITALS: O2SAT 95
[2022-12-28 08:32] LABS: Anion Gap 6 (5-15); BUN 9 mg/dL (7-18); BUN/Creat Ratio 9.9 RATIO (10-20); Calcium,Total 8.4 mg/dL (8.5-10.1); Chloride 105 mmol/L (98-107); Creatinine, Serum 0.91 mg/dL (0.55-1.02); EST Glomerular Filtration Rate 74 mL/min (>60); Est Glom Filt Rate - Afr Amer 90 mL/min (>60); Glucose 98 mg/dL (74-106); Potassium 3.5 mmol/L (3.5-5.1); Sodium Level 136 mmol/L (136-145)
[2022-12-28 09:09] VITALS: BP 101/62; PULSE 67; RESP 14; TEMP 36.2; O2SAT 99
[2022-12-28] MEDS: Pantoprazole Sodium 40 MG in 0.9% Normal Saline (100mL MB+) 100 ML 330 MG IV (09:18)
[2022-12-28] MEDS: cycloBENZAPRine HCl 10 MG Tablet PO (11:57)
[2022-12-28 14:01] VITALS: BP 112/66; PULSE 76; RESP 16; TEMP 36.5; O2SAT 100
--- NOTE | 2022-12-28 15:01 | DCINST_ITS ---
Discharge Instructions Diet Discharge Diet: Light diet - advance as tolerated Activity Discharge Activity: Return to Normal Activity Follow Up Care Test Results: Test results from this visit will be discussed in further detail at your follow- up appointment, if applicable. Discharge Plan Admission Admit Date/Time: 12/27/22 16:46 Primary Reason for Your Visit: Intractable nausea and vomiting Attending Provider: Talita Santizo Primary Care Provider: Sergio Grover Consulting Providers: Susy Vaughan; Robert Valdez Instructions Patient Instructions: Cannabinoid Hyperemesis Syndrome Additional Instructions / Restrictions: DISCHARGE INSTRUCTIONS PLEASE READ *Please take this with you to your next doctors appointment* -You will be discharged with a prescription for scopolamine patches that [facility] on file -You will need to follow-up with Dr. Levy with GI in his office upon discharge. Please call his office to schedule your hospital follow-up appointment (ph. [phone]) -It is advised that you avoid any marijuana/cannabis products as this can cause recurrence of symptoms moving forward -Please call your primary care provider's office upon discharge to schedule a hospital follow up within 1 week. -For any concerning signs or symptoms please call 911 or proceed to the nearest emergency department Discharge Orders/Prescriptions Prescriptions: New scopolamine base 1 mg over 3 days Patch 3 Day 1 patch transdermal Q3D Qty: 4 0RF Referrals / Follow Up: Sergio Grover DO [Primary Care Provider] - Within 1 Week Florentin Levy DO [Med Staff - Active Staff] - Disposition Disposition (needs filled in before D/C Order can be placed): Home, Self Care
--- NOTE | 2022-12-28 15:04 | PCM.DC.SUM ---
Providers Date of Admission: 12/27/22 Date of Discharge: 12/28/22 Primary Care Physician: Dr. Sergio Grover DO Reason For Visit: INTRACTABLE N/V W/ CVS/CANNABIS USE Diagnosis Discharge Diagnosis (1) Intractable vomiting: Status: Resolved Code(s): R11.10 - Vomiting, unspecified (2) Marijuana use: Status: Chronic Code(s): F12.10 - Cannabis abuse, uncomplicated Plan #Cannabis hyperemesis syndrome #Erythematous duodenopathy #Right ovarian cyst Medications at Discharge Home Medications scopolamine base 1 mg over 3 days transdermal patch 1 patch transdermal Q3D #4 ea 12/28/22 Hospital Course Procedures EGD Summary of Care Provided Minutes Spent on Discharge: 32 Hospital Course: 37-year-old female history of cannabis hyperemesis syndrome who was in remission until she smoked cannabis 3 days prior to presentation and had resurgence of intractable nausea and vomiting. She was treated with supportive care however given persistence GI consulted and upper endoscopy performed 12/27/2022 which showed small hiatal hernia and erythematous duodenopathy. Patient started on scopolamine patch, Ativan, Reglan. Held Ativan given significant improvement plan to not write prescription for Ativan on discharge and ended up holding Reglan as patient had back spasm and initially concerned that this could be some kind of dystonic reaction. Patient given Flexeril and still had some back tightening and pain but ultimately said she thought it was probably from the bed and that she gets intermittent muscle spasms at home and overall feels she would be better served recovering at home which is very reasonable given her improved appetite, abdominal pain, nausea vomiting. Discharge with scopolamine patches and instructions to follow-up with GI. Did discuss with patient that she has right ovarian cyst and she reported she was aware of this and follows with someone on outpatient basis. Physical Exam Narrative General: Alert, oriented, no apparent distress HEENT: Atraumatic, normocephalic Eyes: Anicteric, normal conjunctiva, extraocular movements grossly intact Neck: Supple Respiratory: Clear to auscultation bilaterally, normal respiratory effort Cardiovascular: Regular rate and rhythm GI: Soft, nontender, nondistended Extremities: No edema Musculoskeletal: Moving all extremities Neuro: No overt focal neurological deficits Skin: No rashes appreciated Psych: Cooperative Weight / BMI Weight Weight: 64.6 kg Body Mass Index (BMI) 25.2 ABG / Lab / Microbiology Data 12/28/22 07:36 12/28/22 07:36 Laboratory: Laboratory Results - last 24 hr 12/27/22 15:57: Serum , Qual NEGATIVE 12/28/22 07:36: WBC 9.4, RBC 4.22, Hgb 12.3, Hct 36.8 L, MCV 87.2, MCH 29.1, MCHC 33.4, RDW Std Deviation 37.6, RDW Coeff of Fabian 11.8, Plt Count 232, MPV 8.7, Immature Gran % (Auto) 0.200, Neut % (Auto) 60.3, Lymph % (Auto) 30.8, Atlantic % (Auto) 5.9, Eos % (Auto) 2.6, Baso % (Auto) 0.2, Absolute Neuts (auto) 5.6, Absolute Lymphs (auto) 2.88, Nucleated RBC % 0, Sodium 136, Potassium 3.5, Chloride 105, Carbon Dioxide 25.0, Anion Gap 6, BUN 9, Creatinine 0.91, Estim Creat Clear Calc 70.70, Est GFR (MDRD) Af Amer 90, Est GFR (MDRD) Non-Af 74, BUN/Creatinine Ratio 9.9 L, Glucose 98, Calcium 8.4 L D/C Instructions Discharge Diet: Light diet - advance as tolerated Meaningful Use Info Meaningful Use Diagnoses (Choose all that apply): None applicable Discharge Plan Admission Admit Date/Time: 12/27/22 16:46 Primary Reason for Your Visit: Intractable nausea and vomiting Attending Provider: Talita Santizo Primary Care Provider: Sergio Grover Consulting Providers: Susy Vaughan; Robert Valdez Instructions Patient Instructions: Cannabinoid Hyperemesis Syndrome Additional Instructions / Restrictions: DISCHARGE INSTRUCTIONS PLEASE READ *Please take this with you to your next doctors appointment* -You will be discharged with a prescription for scopolamine patches that were sent to the [facility] on file -You will need to follow-up with Dr. Levy with GI in his office upon discharge. Please call his office to schedule your hospital follow-up appointment (ph. [phone]) -It is advised that you avoid any marijuana/cannabis products as this can cause recurrence of symptoms moving forward -Please call your primary care provider's office upon discharge to schedule a hospital follow up within 1 week. -For any concerning signs or symptoms please call 911 or proceed to the nearest emergency department Discharge Orders/Prescriptions Prescriptions: New scopolamine base 1 mg over 3 days Patch 3 Day 1 patch transdermal Q3D Qty: 4 0RF Referrals / Follow Up: Sergio Grover DO [Primary Care Provider] - Within 1 Week Florentin Levy DO [Med Staff - Active Staff] - Disposition Disposition (needs filled in before D/C Order can be placed): Home, Self Care Charges/Coding Visit Charges Inpatient E&M: 58237 Disch Hosp >30min
== END 2022-12-28 16:07 | disposition home or self-care (01) | DRG 249 ==
LOC: ED 22:30 → PCU 12-26 02:48
PROVIDERS: Anesthesiology; Internal Medicine; Internal Medicine Gastroenterology; Admitting Provider Family Medicine; Emergency Provider Emergency Medicine; PCP Student in an Organized Health Care Education/Training Program; Visit Provider Internal Medicine
PROC: 0DJ08ZZ Inspection of Upper Intestinal Tract, Via Natural or Artificial Opening Endoscopic (ICD-10-PCS; CPT 43235; principal; 2022-12-27 16:25)
DX: R11.15 Cyclical vomiting syndrome unrelated to migraine (principal); F12.188 Cannabis abuse with other cannabis-induced disorder; E87.1 Hypo-osmolality and hyponatremia; K44.9 Diaphragmatic hernia without obstruction or gangrene; E87.6 Hypokalemia; M54.9 Dorsalgia, unspecified; E86.0 Dehydration; M62.830 Muscle spasm of back; N28.9 Disorder of kidney and ureter, unspecified; R73.9 Hyperglycemia, unspecified; R03.0 Elevated blood-pressure reading, without diagnosis of hypertension; N83.201 Unspecified ovarian cyst, right side; Z79.899 Other long term (current) drug therapy; Z90.49 Acquired absence of other specified parts of digestive tract; Z87.891 Personal history of nicotine dependence
CPT/HCPCS: 43239; 36415; 74177; 80048; 80053; 83690; 83735; 84100; 84145; 84703; 85025; 88305; 88342; 96361; 96365; 96366; 96372; 96374; 96375; 96376; 99221; 99283; 99284; J7030; J7120; Q9967; A4216; G0378; J2405; J3490

== ENCOUNTER 2023-05-07 08:51 | Emergency (ER) | payer MEDICAID, SELFPAY ==
[2023-05-07 08:52] VITALS: BP 144/89; PULSE 96; RESP 14; TEMP 36.5; O2SAT 100; BMI 26.5
--- NOTE | 2023-05-07 09:01 | EX.ED.DYSGE1 ---
HPI History of Present Illness Chief Complaint: General Illness Detail of Chief Complaint: Not feeling well since yesterday Informant: patient Narrative Narrative: Patient presents to the emergency department with complaint of not feeling well since yesterday. She describes cough as well as vomiting and chest discomfort. Complains of bodyaches and headache. Patient tells me that her son tested positive for influenza yesterday. Patient thinks she might have the flu. Patient tells me she is vomited about 6 times. She denies any diarrhea. Patient has history of cyclic vomiting. Admits occasional marijuana use. Patient states that she took Phenergan at home and dicyclomine. [facility] Medical History COVID-19 Cyclic vomiting syndrome Esophageal reflux Former tobacco use Marijuana smoker, episodic Home Medications oseltamivir 75 mg capsule (Tamiflu) 75 mg PO BID 5 days #9 caps 05/07/23 [Rx Last Taken Unknown] Allergy/AdvReac Type Severity Reaction Status Date / Time Fish Containing Products Allergy Swelling Verified 05/07/23 08:53 haloperidol [From Haldol] AdvReac Other Verified 05/07/23 08:53 Family History Mother Hypertension Hyperlipidemia Father Hypertension Hyperlipidemia Surgical History Status post cholecystectomy Social History household members: significant other Smoking Status: Former smoker how long ago did patient quit smoking: Quit 15 years prior to current presentation. alcohol intake: never substance use type: marijuana ROS ROS ED Review of Systems ROS Unobtainable: other Constitutional Constitutional ED: Reports lethargy; Denies chills, fever(s), sweats or weight loss Eyes Eyes: Denies blurry vision, change in vision or diplopia ENT ENT ED: Denies rhinorrhea or sore throat Cardiovascular Cardiovascular: Reports chest pain; Denies orthopnea or racing heartbeat Respiratory/Chest Respiratory/Chest: Reports cough; Denies dyspnea, dyspnea on exertion, orthopnea or sputum Gastrointestinal Gastrointestinal: Denies abdominal pain, diarrhea, nausea or vomiting Genitourinary Genitourinary ED: Denies dysuria, hematuria or urinary frequency Musculoskeletal Musculoskeletal: Reports myalgias; Denies arthralgias, back pain or neck pain Integumentary Denies abscess, Abrasions or rash Neurologic Neurologic: Reports headache(s); Denies weakness Psychiatric Psychiatric: Denies anxiety, depression or suicidal thoughts Endocrine Endocrinology: Denies polydipsia, polyphagia or polyuria Hematologic/Lymphatic Hematologic/Lymphatic: Denies easy bleeding, easy bruising or lymphadenopathy Allergic/Immunologic Allergic/Immunologic ED: Denies mouth swelling, tongue swelling or urticaria EXAM Physical Exam Const Vital Signs: 05/07/23 08:52 Temperature 97.7 F L Temperature Source Temporal Pulse Rate 96 Respiratory Rate 14 Blood Pressure 144/89 H Blood Pressure Mean 107 Pulse Ox 100 Oxygen Delivery Method Room Air Positive well nourished and well developed General Appearance ED: well developed and NAD HEENT Reports TM's clear and moist mucous membranes normocephalic and atraumatic; Negative for trauma or tenderness Tympanic Membrane ED: Yes TM's clear Eyes PERRL and EOMs intact bilaterally General Eye ED: Negative for pale conjunctiva or scleral icterus Neck no lymphadenopathy, supple and no JVD General: Negative for tenderness Chest Wall inspection of chest normal and palpation of chest normal Chest: Negative for tenderness Resp normal respiratory effort and clear to auscultation bilaterally Effort and Inspection: Negative for respiratory distress or pain with movement Auscultation: Negative for rhonchi, wheezes or diminished lung sounds Cardio regular rate, regular rhythm, S1 normal heart sound, S2 normal heart sound and no murmurs Peripheral Pulses: pulses 2+ throughout GI normal to inspection, nondistended, normoactive bowel sounds, soft to palpation, non-tender, non-distended and no masses Back/Spine no CVA tenderness and no thoracic nor lumbar tenderness Extremity normal to inspection General Extremety ED: Negative for edema General Extremity: Negative for edema Neuro oriented x3, CN's II-XII intact bilaterally, no sensory deficits noted and gait normal Sensorium / Orientation: awake, alert, oriented to person, oriented to place and oriented to time Motor Exam: strength 5/5 throughout and strength abnormal Psych mental status grossly normal Skin no rashes or lesions noted and no wounds MDM MDM MDM Narrative Medical decision making narrative: Patient presents with upper respiratory symptoms as well as nausea and vomiting with recent exposure to son who has influenza A. Patient had a flu, COVID, and RSV testing performed and she was positive for influenza B. Patient was treated symptomatically in the department with IV Toradol as well as Reglan. She was given given a GI cocktail and then for continued nausea was given Zofran ODT. Discussed treatment with Tamiflu as she is within the window for starting treatment and she would like to proceed. She was advised that possible side effect could include nausea and vomiting. She has Phenergan at home and Bentyl. Advised to push fluids. Advised to return if increasing shortness of breath persistent vomiting, dehydration, or condition worsening way. 1 view chest x-ray also obtained given the complaint of vomiting and chest pain and this was unremarkable. No evidence of Rhodes syndrome. Lab Data Attestation: I reviewed the patient's lab results. Radiography Diagnostic Testing: Clinical Impression(s) from Imaging Studies Chest X-Ray 05/07/23 09:40 IMPRESSION: Normal x-ray examination of the chest. Electronically Signed: Preet Lewis MD at 10:00 EST , 1 view chest x-ray obtained interpreted by myself no evidence of infiltrate or pneumothorax or pneumomediastinum. Radiology in agreement. Discharge Plan Triage Chief Complaint: General Illness ED Provider: Wellington Candelaria Dx/Rx/DC Orders Clinical Impression: Influenza B, Vomiting Instructions: ED Influenza (Adult), ED Vomiting (Adult) Prescriptions: New oseltamivir [Tamiflu] 75 mg capsule 75 mg PO BID 5 Days Qty: 9 0RF Primary Care Provider: Sergio Grover Referrals: Sergio Grover DO [Primary Care Provider] - 3-5 Days Disposition Disposition: Home, Self Care
[2023-05-07] MEDS: Metoclopramide 10 MG/2 ML Vial IM (09:06)
[2023-05-07] MEDS: Ketorolac 60 MG/2 ML Vial IM (09:07)
--- NOTE | 2023-05-07 09:40 | RAD_ITS ---
STUDY: X-RAY CHEST REASON FOR EXAM: Female, 37 years old. Chest pain TECHNIQUE: Single AP portable view of the chest. COMPARISON: Comparison is made with prior study dated February 27, 2021. FINDINGS: The lungs are clear and expanded. There is no demonstrated pleural abnormality. Normal size heart. Calcified right hilar lymph nodes. Normal visualized pulmonary arteries. Normal visualized aortic arch and descending thoracic aorta. There is a mild dextroscoliosis of the thoracic spine. Normal visualized ribs, clavicles, and shoulders. There is no demonstrated abnormality of the visualized soft tissue structures of the upper abdomen. RAD/Chest 1 View (Portable) IMPRESSION: Normal x-ray examination of the chest. Electronically Signed: Preet Lewis MD at 10:00 EST ,
[2023-05-07] MEDS: Ondansetron ODT 4 MG Tablet PO (09:55)
[2023-05-07] MEDS: Lorazepam 2 MG/ML WCH Syringe 1 MG IM (09:55)
[2023-05-07] MEDS: Oseltamivir Phosphate 75 MG Capsule PO (10:17)
[2023-05-07] MEDS: Mag Hydrox/Al Hydrox/Simeth 30 ML UDC PO (10:17)
[2023-05-07 10:20] VITALS: BP 136/81; PULSE 92; RESP 20; TEMP 37.2; O2SAT 97
--- NOTE | 2023-05-07 10:31 | ED.RN ---
Pt. was give a hand written work note by Dr. Candelaria to have today and tomorrow off of work. Pt. s/o came to pick patient up and requested a work note for himself as well. 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 S/o stated he needed the note because now that she is sick she cannot watch my kids so I have going to have to call off work . This RN stated again, that unfortunately I cannot write a work note for him as he was not the patient. Pt. walked away frustrated.
== END 2023-05-07 10:21 | disposition home or self-care (01) ==
PROVIDERS: Emergency Provider Emergency Medicine; PCP Student in an Organized Health Care Education/Training Program; Visit Provider Emergency Medicine
DX: J10.1 Influenza due to other identified influenza virus with other respiratory manifestations (principal); Z87.891 Personal history of nicotine dependence; R07.9 Chest pain, unspecified; R51.9 Headache, unspecified; K21.9 Gastro-esophageal reflux disease without esophagitis; R11.10 Vomiting, unspecified
CPT/HCPCS: 71045; 87631; 96372; 96374; 99282

== ENCOUNTER 2023-05-10 17:15 | Emergency (ER) | payer MEDICAID, SELFPAY ==
[2023-05-10 17:17] VITALS: BP 115/91; PULSE 109; RESP 22; TEMP 36.8; O2SAT 100; BMI 25.5
[2023-05-10 17:20] VITALS: BP 115/91; PULSE 109; RESP 22; TEMP 36.8; O2SAT 100
--- NOTE | 2023-05-10 17:26 | EDS_ITS ---
HPI History of Present Illness Chief Complaint: Nausea/Vomiting Detail of Chief Complaint: Presents with nausea and vomiting since taking Tamiflu for influenza type B Informant: patient Onset/Context/Timing Onset: Days Context: Sudden Onset Timing: Continuous and Waxes and wanes Quality: Nausea, vomiting and diarrhea Location: GI Current Severity: Moderate Maximum Severity: Severe Worsened by: Worsens starting Tamiflu for influenza B Relieved by: Nothing Associated Symptoms Associated Symptoms: Thirst, dry mouth and orthostatic lightheadedness Narrative Narrative: Patient is a 37-year-old woman. She was diagnosed influenza B on May 06. She does have history of cyclic vomiting as well as cannabis cyclic vomiting syndrome. Patient reports headache, myalgias arthralgias. She reports rhinorrhea, congestion cough that is nonproductive. She also endorses myalgias arthralgias. She endorses thirst, dry mouth and orthostatic lightheadedness. She also endorses decreased urine output. She states she feels terrible. She does not know him a time she vomited today. Prior similar symptoms: Yes Recent Illness/Hospitalization: Yes PFSH PFS Medical History COVID-19 Cyclic vomiting syndrome Esophageal reflux Former tobacco use Leukocytosis Marijuana smoker, episodic Home Medications oseltamivir 75 mg capsule (Tamiflu) 75 mg PO BID 5 days #9 caps 05/07/23 [Rx Last Taken Unknown] Allergy/AdvReac Type Severity Reaction Status Date / Time Fish Containing Products Allergy Swelling Verified 05/10/23 17:17 haloperidol [From Haldol] AdvReac Other Verified 05/10/23 17:17 Family History Mother Hypertension Hyperlipidemia Father Hypertension Hyperlipidemia Surgical History Status post cholecystectomy Social History household members: significant other Smoking Status: Former smoker how long ago did patient quit smoking: Quit 15 years prior to current presentation. alcohol intake: never substance use type: marijuana ROS ROS ED Constitutional Constitutional ED: Reports chills, fever(s) and subjective; Denies sweats or weight loss Eyes Eyes: Denies blurry vision, change in vision or diplopia ENT ENT ED: Denies ear pain, rhinorrhea or sore throat Cardiovascular Cardiovascular: Reports palpitations; Denies chest pain, orthopnea, paroxysmal nocturnal dyspnea or racing heartbeat Respiratory/Chest Respiratory/Chest: Reports cough and dyspnea; Denies dyspnea on exertion, orthopnea, paroxysmal nocturnal dyspnea or sputum Gastrointestinal Gastrointestinal: Reports abdominal pain, diarrhea, nausea and vomiting; Denies constipation or melena Genitourinary Genitourinary ED: Reports other Details: Decreased urine output ; Denies dysuria, hematuria, LMP (females 10-50) or urinary frequency Musculoskeletal Musculoskeletal: Reports arthralgias and myalgias; Denies back pain or neck pain Integumentary Denies rash Neurologic Neurologic: Reports headache(s) and weakness; Denies paresthesias Hematologic/Lymphatic Hematologic/Lymphatic: Reports systems reviewed and no addt'l complaints, except as documented EXAM Physical Exam Const Vital Signs: 05/10/23 17:17 05/10/23 17:20 05/10/23 17:54 Temperature 98.2 F 98.2 F 98.2 F Temperature Source Temporal Temporal Temporal Pulse Rate 109 H 109 H 109 H Respiratory Rate 22 H 22 H 22 H Blood Pressure 115/91 H 115/91 H 115/91 H Blood Pressure Mean 99 99 99 Pulse Ox 100 100 100 Oxygen Delivery Method Room Air Room Air Room Air 05/10/23 19:50 Temperature Temperature Source Pulse Rate 74 Respiratory Rate 16 Blood Pressure 110/89 H Blood Pressure Mean 96 Pulse Ox 97 Oxygen Delivery Method Room Air Positive well nourished and well developed Constitutional Narrative: Patient appears ill. She is walking as if she is arthritic and old. General Appearance ED: well developed; Negative for cyanotic, diaphoretic, NAD or pallor HEENT Reports dry mucous membranes HEENT Narrative: Head is atraumatic normocephalic. Ears normal. Nares patent. Posterior pharynx out erythema or exudate. Mouth ED: Yes dry mucous membranes Mouth: dry mucous membranes Eyes PERRL and EOMs intact bilaterally General Eye ED: Negative for pale conjunctiva or scleral icterus Neck no lymphadenopathy, supple and no JVD Chest Wall inspection of chest normal and palpation of chest normal Resp normal respiratory effort and clear to auscultation bilaterally Cardio regular rhythm, S1 normal heart sound, S2 normal heart sound and no murmurs Rate: tachycardic GI non-distended and no masses; Negative for non-tender or hepatosplenomegaly Auscultation: hypoactive bowel sounds Palpation: soft and tender other (Diffusely) Back/Spine no CVA tenderness Extremity normal to inspection Extremity Narrative: There is no clubbing or acrocyanosis. General Extremety ED: Negative for edema or tenderness General Extremity: Negative for edema Neuro oriented x3, CN's II-XII intact bilaterally and no sensory deficits noted Sensorium / Orientation: alert Psych mental status grossly normal Skin no rashes or lesions noted, no wounds and No skin turgor normal General Skin Exam: Negative for jaundice or pallor MDM MDM MDM Narrative Medical decision making narrative: Patient recently diagnosed with influenza B. Nausea and vomiting may have exacerbated her cyclic vomiting since she was prescribed Tamiflu which has a side effect of nausea and vomiting. Clinically she appears dehydrated. Because of the amount of vomiting with diarrhea will obtain BMP to assess renal function and rule out hypokalemia. She was treated with Zofran for her nausea. If this does not work we will use meds from cyclic vomiting order set since she has history of cyclic vomiting and cannabis hyperemesis syndrome. Patient was reassessed at 1840. She is still nauseous. She will not attempt to drink fluids. Cyclic vomiting order protocol was initiated. History & Record Review Additional record(s) reviewed:: Prior ED visit and Prior labs Lab Data Attestation: I reviewed the patient's lab results. Lab results narrative: Creatinine is elevated at 1.22 and is higher than baseline. Patient is also hypokalemic. Estimated GFR is 64. Glucose elevated 180 with a normal CO2 anion gap. Patient does have history of elevated blood sugars in the past. Labs: Laboratory Results - last 24 hr 05/10/23 17:42 Sodium 135 L Potassium 3.1 L Chloride 100 Carbon Dioxide 26.0 Anion Gap 9 BUN 16 Creatinine 1.22 H Estim Creat Clear Calc 58.01 Est GFR (MDRD) Af Amer 64 Est GFR (MDRD) Non-Af 53 L BUN/Creatinine Ratio 13.1 Glucose 180 H Calcium 9.7 Treatment and Re-Evaluation :: Since patient did not improve after Zofran cyclic order set was initiated. Patient complained of sore throat. Viscous Xylocaine was ordered. Of note tachycardia resolved with IV fluids. I was informed by nursing staff the patient is passed a p.o. challenge. Therefore will discharge to home. Discharge Plan Triage Chief Complaint: Nausea/Vomiting ED Provider: Marquis Roberts Dx/Rx/DC Orders Clinical Impression: Nausea vomiting and diarrhea, Acute dehydration, Influenza B, Acute prerenal azotemia, Sinus tachycardia seen on monitoring analyst, Cannabis hyperemesis syndrome concurrent with and due to cannabis dependence Instructions: ED Influenza (Adult), ED Vomit Diarrhea Nonspec Adult Prescriptions: No Action oseltamivir [Tamiflu] 75 mg capsule 75 mg PO BID 5 Days Qty: 9 0RF Primary Care Provider: Sergio Grover Referrals: Sergio Grover DO [Primary Care Provider] - 3-5 Days if not improving Disposition Disposition: Home, Self Care
--- OUTSIDE RECORDS SUMMARY | 2023-05-10 17:45 | XMS RPT_ITS | CCD ---
Author Name Unknown Address [id number] [place] [address] Organization [facility] Care Team Providers [facility] Security Director Name Role Phone Sergio Wilhelm DO Primary Care Provider SERGIO WILHELM Primary Care Unavailable TONYA, DAYAMI Attending Unavailable SERGIO WILHELM L Primary Care Unavailable TONYA, DAYAMI Referring Unavailable WILHELM, SERGIO L Primary Care Unavailable DAYAMI CASTANEDA Referring Unavailable WILHELM, SERGIO L Primary Care Unavailable TONYA, DAYAMI Referring Unavailable WILHELM, SERGIO L Primary Care Unavailable WILHELM, SERGIO L Primary Care Unavailable RABIA ROMERO Attending Unavailable WILHELM, SERGIO L Primary Care Unavailable JHONNY RUIZ Referring Unavailable WILHELM, SERGIO Luis Alberto Primary Care Unavailable WILHELM, SERGIO L Primary Care Unavailable RABIA ROMERO Referring Unavailable WILHELM, SERGIO L Primary Care Unavailable RABIA ROMERO Referring Unavailable WILHELM, SERGIO L Primary Care Unavailable JUAN MONTANA Attending Unavailable JOSE A, JHONNY Attending Unavailable WILHELM, SERGIO L Primary Care Unavailable WILHELM, SERGIO L Primary Care Unavailable LALO TOVAR Referring Unavailable WILHELM, SERGIO Luis Alberto Primary Care Unavailable WILHELM, SERGIO L Primary Care Unavailable Wilhelmisidoro DOUGLASS Sergio Luis Alberto Primary Care Provider Allergies Allergy Classification Reported Allergen(s) Allergy Type Date of Onset Reaction(s) Facility (20 sources) Atropine / Diphenoxylate; Translations: [DIPHENOXYLATE-A TROPINE] Drug Allergy 01-13-2017 Intolerance, GI Upset [facility] Work Phone: (20 sources) Fish; Translations: [FISH] Food Allergy 08-29-2011 Swelling, Other: See Comments [facility] Work Phone: Medications Current Medications Medication Drug Class(es) Dates Sig (Normalized) Sig (Original) etonogestrel 68 mg drug implant (20 sources) Progestin Start: 01-01-2022 End: 12-31-2024 etonogestrel (NEXPLANON) subdermal implant 68 mg Indications: Encounter for removal and reinsertion of Nexplanon 1 Each by SUBDERMAL route as directed. 1 Each 0 01/01/2022 12/31/2024 Active Completed/Discontinued Medications Medication Drug Class(es) Dates Sig (Normalized) Sig (Original) acetaminophen 325 mg oral capsule (19 sources) acetaminophen 32 5 mg cap Take by mouth as needed. 0 Active Problems Active Problems Problem Classification Problem Date Documented Da te Episodic/Chronic Anxiety disorders (19 sources) Posttraumatic stress disorder; Translations: [Post-traumatic stress disorder, unspecified] Onset: 01-24-2011 07-04-2020 Chronic Conditions associated with dizziness or vertigo (2 sources) Lightheadedness; Translations: [Dizziness and giddiness] Episodic Contraceptive and procreative management (5 sources) Patient encounter status; Translations: [Encounter for surveillance of implantable subdermal contraceptive] Episodic Inflammatory diseases of female pelvic organs (1 source) Bacterial vaginosis; Translations: [Acute vaginitis] Episodic Other connective tissue disease (2 sources) Spasm; Translations: [Other muscle spasm] Episodic Other connective tissue disease (1 source) Intersection syndrome; Translations: [Other synovitis and tenosynovitis, left forearm] 11-18-2022 Episodic Other female genital disorders (1 source) Deep pain on intercourse; Translations: [Deep dyspareunia] Chronic Other female genital disorders (1 source) Vaginal discharge; Translations: [Other specified noninflammatory disorders of vagina] Episodic Other female genital disorders (1 source) Pruritus of vagina; Translations: [Other specified noninflammatory disorders of vagina] Episodic Other gastrointestinal disorders (1 source) Irritable bowel syndrome; Translations: [Mixed irritable bowel syndrome] Chronic Other gastrointestinal disorders (19 sources) Irritable bowel syndrome with diarrhea; Translations: [Irritable bowel syndrome with diarrhea] Onset: 06-07-2016 06-07-2016 Chronic Other non-traumatic joint disorders (1 source) Pain in wrist; Translations: [Pain in left wrist] Episodic Other non-traumatic joint disorders (1 source) Pain in right hip joint; Translations: [Pain in right hip] 11-08-2022 Episodic Substance-related disorders (19 sources) Psychoactive substance abuse; Translations: [Cannabis abuse, uncomplicated] Onset: 06-26-2017 06-26-2017 Chronic Thyroid disorders (20 sources) Goiter; Translations: [Nontoxic goiter, unspecified] Onset: 09-11-2016 09-11-2016 Chronic Past or Other Problems Problem Classification Problem Date Documented Date Episodic/Chronic Abdominal pain (20 sources) Pain in female pelvis; Translations: [Pelvic and perineal pain] Onset: 12-29-2017 Episodic Immunizations and screening for infectious disease (20 sources) Methicillin resistant staphylococcus aureus carrier; Translations: [Carrier or suspected carrier of Methicillin resistant Staphylococcus aureus] Onset: 08-07-2011 08-07-2011 Episodic Nonmalignant breast conditions (6 sources) Pain of breast; Translations: [Mastodynia] Onset: 12-03-2022 10-24-2022 Episodic Nonspecific chest pain (2 sources) Tight chest; Translations: [Other chest pain] Onset: 11-08-2022 11-08-2022 Episodic Other connective tissue disease (1 source) Other muscle spasm; Translations: [Muscle spasm] Onset: 11-08-2022 Episodic Other non-traumatic joint disorders (1 source) Pain in right hip; Translations: [Pain of right hip] Onset: 11-08-2022 Episodic Other non-traumatic joint disorders (1 source) Pain in left wrist; Translations: [Wrist pain, acute, left] Onset: 05-30-2022 Episodic Other screening for suspected conditions (not mental disorders or infectious disease) (3 sources) Encounter for screening for other suspected endocrine disorder; Translations: [Encounter for screening for diabetes mellitus] Onset: 11-08-2022 Episodic Residual codes; unclassified (20 sources) FH: Thyroid disorder; Translations: [Family history of other endocrine, nutritional and metabolic diseases] Onset: 03-05-2018 04-08-2018 Episodic Residual codes; unclassified (1 source) Family history of other endocrine, nutritional and metabolic diseases; Translations: [Family history of thyroid disorder] Onset: 04-08-2018 Episodic Spondylosis; intervertebral disc disorders; other back problems (20 sources) Neck pain; Translations: [Cervicalgia] Onset: 03-07-2016 03-07-2016 Episodic Results Test Name Value Interpretation Reference Range Facil ity Vital Signs Date Time Vital Sign Value Performing Clinician Kay lugo 11-18-2022 14:18-0400 Body temperature 98.1 [degF] Corey Sloan MD Work Phone: [facility] 11-18-2022 14:18-0400 Body weight 70.22 kg Corey Sloan MD Work Phone: [facility] 11-18-2022 14:18-0400 Diastolic blood pressure 68 mm[Hg] Corey Sloan MD Work Phone: [facility] 11-18-2022 14:18-0400 Heart rate 81 /min Corey Sloan MD Work Phone: [facility] 11-18-2022 14:18-0400 Respiratory rate 21 /min Corey Sloan MD Work Phone: [facility] 11-18-2022 14:18-0400 SaO2% (BldA) [Mass fraction] 99 % Corey Sloan MD Work Phone: [facility] 11-18-2022 14:18-0400 Systolic blood pressure 100 mm[Hg] Corey Sloan MD Work Phone: [facility] 11-08-2022 11:28-0400 Body height 163 cm Dayami Tonya PROP MAKER.GIG TENDER Work Phone: [facility] 11-08-2022 11:28-0400 Body weight 69.85 kg Dayami Tonya PROP MAKER.GIG TENDER Work Phone: [facility] 11-08-2022 11:28-0400 Diastolic blood pressure 64 mm[Hg] Dayami Tonya PROP MAKER.GIG TENDER Work Phone: [facility] 11-08-2022 11:28-0400 Heart rate 74 /min Dayami Tonya PROP MAKER.GIG TENDER Work Phone: [facility] 11-08-2022 11:28-0400 Respiratory rate 16 /min Dayami Castaneda APRN.GIG TENDER Work Phone: [facility] 11-08-2022 11:28-0400 SaO2% (BldA) [Mass fraction] 99 % Dayami Castaneda APRN.GIG TENDER Work Phone: [facility] 11-08-2022 11:28-0400 Systolic blood pressure 102 mm[Hg] Dayami Castaneda APRN.GIG TENDER Work Phone: [facility] 10-24-2022 11:17-0400 Body height 160 cm Rabia Romero APRN.GIG TENDER Work Phone: [facility] 10-24-2022 11:17-0400 Body weight 67.59 kg Rabia Romero APRN.GIG TENDER Work Phone: [facility] 10-24-2022 11:17-0400 Diastolic blood pressure 68 mm[Hg] Rabia Romero APRN.GIG TENDER Work Phone: [facility] 10-24-2022 11:17-0400 Systolic blood pressure 112 mm[Hg] Rabia Romero APRN.GIG TENDER Work Phone: [facility] 06-15-2022 08:47-0400 Body temperature 97.5 [degF] Radha Humphreys APRN.GIG TENDER Work Phone: [facility] 06-15-2022 08:47-0400 Body weight 71.85 kg Radha Humphreys APRN.GIG TENDER Work Phone: [facility] 06-15-2022 08:47-0400 Diastolic blood pressure 64 mm[Hg] Radha Humphreys APRN.GIG TENDER Work Phone: [facility] 06-15-2022 08:47-0400 Heart rate 70 /min Radha Humphreys APRN.GIG TENDER Work Phone: [facility] 06-15-2022 08:47-0400 Respiratory rate 18 /min Radha Humphreys APRN.GIG TENDER Work Phone: [facility] 06-15-2022 08:47-0400 SaO2% (BldA) [Mass fraction] 99 % Radha Humphreys PROP MAKER.GIG TENDER Work Phone: [facility] 06-15-2022 08:47-0400 Systolic blood pressure 102 mm[Hg] Radha Humphreys PROP MAKER.GIG TENDER Work Phone: [facility] 05-30-2022 09:20-0500 Body temperature 96.91 [degF] Lalo Tovar PROP MAKER.GIG TENDER Work Phone: [facility] 05-30-2022 09:20-0500 Body weight 67.59 kg Lalo Tovar PROP MAKER.GIG TENDER Work Phone: [facility] 05-30-2022 09:20-0500 Diastolic blood pressure 76 mm[Hg] Lalo Tovar PROP MAKER.GIG TENDER Work Phone: [facility] 05-30-2022 09:20-0500 Heart rate 80 /min Lalo Tovar PROP MAKER.GIG TENDER Work Phone: [facility] 05-30-2022 09:20-0500 Respiratory rate 21 /min Lalo Tovar PROP MAKER.GIG TENDER Work Phone: [facility] 05-30-2022 09:20-0500 SaO2% (BldA) [Mass fraction] 99 % Lalo Tovar PROP MAKER.GIG TENDER Work Phone: [facility] 05-30-2022 09:20-0500 Systolic blood pressure 108 mm[Hg] Lalo Tovar PROP MAKER.GIG TENDER Work Phone: [facility] 01-01-2022 11:37-0400 Body weight 63.05 kg Rabia Romero PROP MAKER.GIG TENDER Work Phone: [facility] 01-01-2022 11:37-0400 Diastolic blood pressure 60 mm[Hg] Rabia Romero PROP MAKER.GIG TENDER Work Phone: [facility] 01-01-2022 11:37-0400 Systolic blood pressure 96 mm[Hg] Rabia Romero PROP MAKER.GIG TENDER Work Phone: [facility] 12-10-2021 09:19-0400 Body height 165.2 cm Dayami Tonya PROP MAKER.GIG TENDER Work Phone: [facility] 12-10-2021 09:19-0400 Body weight 63.96 kg Dayami Tonya PROP MAKER.GIG TENDER Work Phone: [facility] 12-10-2021 09:19-0400 Diastolic blood pressure 60 mm[Hg] Dayami Tonya PROP MAKER.GIG TENDER Work Phone: [facility] 12-10-2021 09:19-0400 Heart rate 67 /min Dayami Tonya PROP MAKER.GIG TENDER Work Phone: [facility] 12-10-2021 09:19-0400 Respiratory rate 16 /min Dayami Tonya PROP MAKER.GIG TENDER Work Phone: [facility] 12-10-2021 09:19-0400 SaO2% (BldA) [Mass fraction] 98 % Dayami Tonya PROP MAKER.GIG TENDER Work Phone: [facility] 12-10-2021 09:19-0400 Systolic blood pressure 98 mm[Hg] Dayami Tonya PROP MAKER.GIG TENDER Work Phone: [facility] 10-03-2021 15:14-0400 Body height 162.6 cm Rabia Romero PROP MAKER.GIG TENDER Work Phone: [facility] 10-03-2021 15:14-0400 Body weight 62.69 kg Rabia Romero PROP MAKER.GIG TENDER Work Phone: [facility] 10-03-2021 15:14-0400 Diastolic blood pressure 58 mm[Hg] Rabia Romero PROP MAKER.GIG TENDER Work Phone: [facility] 10-03-2021 15:14-0400 Systolic blood pressure 90 mm[Hg] Rabia Romero PROP MAKER.GIG TENDER Work Phone: [facility] Encounters Encounter Date Encounter Type Care Provider Facility Start: 05-09-2023 Telephone encounter Diomedes champion DO Work Phone: Neurology Start: 03-05-2023 End: 03-05-2023 ambulatory JHONNY RUIZ Facility:[facility] Start: 01-02-2023 End: 01-02-2023 ambulatory SERGIO WILHELM Facility:[facility] Start: 12-03-2022 End: 12-03-2022 ambulatory SERGIO WILHELM Facility:[facility] Start: 12-03-2022 End: 12-03-2022 Subsequent hospital visit by physician [facility] Work Phone: Radiology Procedures Date Procedure Procedure Detail Performing Clinician Start: 12-03-2022 Us breast uni real t martin with image limited Rabia Romero APRN.CNP Work Phone: Start: 11-28-2022 Us soft tissue head & neck real time imge corine Ruiz APRN.CNP Work Phone: Start: 09-07-2019 Adult depression screening assessment Rabia Romero APRN.GIG TENDER Work Phone: Plan of Treatment Date Care Activity Detail Author Start: 08-26-2028 Urine microalbumin profile [facility] Start: 03-05-2024 Covid-19 Vaccine (#1) Covid-19 Vacci ne (#1) [facility] Immunizations Immunization Date Immunization Notes Care Provider Cesilia villalobos 04-30-2019 influenza, injectabl e, quadrivalent, contains preservative Rabia Romero APRN.GIG TENDER Work Phone: [facility] 04-30-2019 influenza virus vacc ine, unspecified formulation Us 1 Work Phone: [facility] 08-26-2018 tetanus toxoid, redu justyn diphtheria toxoid, and acellular pertussis vaccine, adsorbed Rabia Romero APRN.GIG TENDER Work Phone: [facility] 12-22-2016 influenza, seasonal, injectable Rabia Romero APRN.GIG TENDER Work Phone: [facility] 12-12-2014 influenza, injectabl e, quadrivalent, contains preservative Rabia Romero APRN.GIG TENDER Work Phone: [facility] 12-12-2014 influenza, seasonal, injectable Rabia Romero APRN.GIG TENDER Work Phone: [facility] Work Phone: 11-09-2014 tetanus toxoid, redu justyn diphtheria toxoid, and acellular pertussis vaccine, adsorbed Rabia Romero APRN.GIG TENDER Work Phone: [facility] 02-08-2013 varicella virus vaccine Rabia Romero APRN.GIG TENDER Work Phone: [facility] 12-23-2012 influenza virus vacc ine, unspecified formulation Rabia Romero APRN.GIG TENDER Work Phone: [facility] Work Phone: 12-22-2012 influenza, seasonal, injectable, preservative free Rabia Romero APRN.GIG TENDER Work Phone: [facility] Work Phone: 10-17-2012 varicella virus vaccine Rabia Romero APRN.GIG TENDER Work Phone: [facility] 08-05-2011 tetanus toxoid, redu justyn diphtheria toxoid, and acellular pertussis vaccine, adsorbed Rabia Romero APRN.[facility] Work Phone: [facility] Work Phone: 01-31-2009 novel Influenza-H1N1 -09, live virus for nasal administration Rabia Romero APRN.GIG TENDER Work Phone: [facility] Work Phone: Payers Date Payer Category Payer Medicaid [id number] 2016 Medicaid [employer] [place] [employer] [id number] 2016-Present [phone] [address] [place] [id number] Medicaid [id number] 2016 Medicaid [id number] Social History Date Type Detail Facility Start: 12-10-2021 Tobacco smoking stat us MNIS Ex-smoker [facility] Work Phone: End: 03-24-2005 History of tobacco use Current smoker [facility] Work Phone: End: 03-24-2005 History of tobacco use Cigarette Smoker [facility] Work Phone: Start: 10-03-2021 End: 06-15-2022 Alcohol intake Current non-drinker of alcohol (finding) [facility] Start: 09-07-2019 History SDOH Alcohol Frequency 3 [facility] Start: 09-07-2019 History SDOH Alcohol Std Drinks 1 [facility] Start: 09-07-2019 History SDOH Social Connections Phone 5 [facility] Start: 09-07-2019 End: 05-05-2020 History SDOH Social Connections Get Together 2 [facility] Start: 09-07-2019 History SDOH Social Connections Living 8 [facility] Start: 1985 Sex Assigned At Not on file [facility] Start: 09-07-2021 End: 12-10-2021 Exposure to SARS-CoV-2 (event) Not sure [facility] Start: 12-10-2021 End: 10-04-2022 Cigarettes smoked current (pack per day) - Reported 0.5 [facility] Start: 12-10-2021 Tobacco use and exposure Smoke less tobacco non-user [facility] Start: 10-24-2022 End: 11-18-2022 Alcohol intake Current drinker of alcohol (finding) [facility] Start: 09-07-2019 End: 10-04-2022 Social connection and isolation panel [facility] Do you belong to any clubs or organizations such as gnosticism groups, unions, fraternal or athletic groups, or school groups? No [facility] Are you now , , , , never or living with a partner? Living with partner [facility] How often to you hav e a drink containing alcohol? 2-4 times a month [facility] How many standard dr inks containing alcohol do you have on a typical day? 1 or 2 [facility] How often do you hav e 6 or more drinks on 1 occasion? Never [facility] Adult Depression Scr eening Assessment 0 [facility] Do you feel stress - tense, restless, nervous, or anxious, or unable to sleep at night because your mind is troubled all the time - these days [OSQ] Only a little [facility] Start: 10-24-2022 Alcohol Comment socially [facility] Start: 03-05-2023 Alcohol intake Ex-drinker (finding) [facility] Clinical Notes 04-08-2018 to 05-09-2023 Telephone Encounter - Jonas Sanchez - 05/09/2023 3:25 PM Zaida Vitale RDMS - 12/03/2022 1:30 PM Zaida Nguyen RDMS - 11/28/2022 11:30 AM EDTPatient InstructionsPatient Instructions Note Date & Type Note Facility 05-09-2023 Miscellaneous Notes 1st attempt,spoke with patient to reschedule her EMG. She was busy and asked to be called back in a couple days. documented in this encounter [facility] 03-05-2023 Note HNO ID: [id number] Author: Jhonny Ruiz APRN.GIG TENDER Service: ? Author Type: Nurse Practitioner Type: Progress Notes Filed: 03/05/2023 5:56 PM Note Text: Chief Complaint Patient presents with: Pain: In left thumb that goes up to shoulder HPI Fadia Pineda is a 37 year old female who presents here today for Above Complaints. Fadia is an established patient of Dr. Reilly DO. She is a new patient to me today. Concerns today... Thumb pain --- L thumb, wrist, and hand pain, shooting up her arm. Radiates up to elbow. Consistent since braiding all 3 of her kids hair in one day about 1-2 weeks ago. Worsens at night. Does improve with OTC ibuprofen. Denies any redness, swelling, or deformity to hand or joints. No other concerns or complaints. Past medical history, appointments, medications, allergies reviewed. Previous Medical History PAST MEDICAL HISTORY Diagnosis Date Abdominal pain, right upper quadrant Anemia Chlamydia Clostridium difficile colitis 2002 Cyclic vomiting syndrome depression Ganglion cyst of wrist 2006 Gonorrhea Hyperplastic colon polyp benign Migraines Post traumatic stress disorder (PTSD) 01/24/2011 hemorrhage STD (sexually transmitted disease) chlamydia ag 16 Tetrahydrocannabinol (THC) use disorder, mild, abuse 06/26/2017 Admitted to Thyromegaly 06/07/2016 Previous Surgical History PAST SURGICAL HISTORY Procedure Laterality Date CERCLAGE OF CERVIX VAGINAL first CHOLECYSTECTOMY 06/02/2009 COLONOSCOPY FLX DX W/COLLJ SPEC WHEN PFRMD 10/2009 Colonoscopy COLONOSCOPY FLX DX W/COLLJ SPEC WHEN PFRMD 04/05/2013 Colonoscopy EGD TRANSORAL BIOPSY SINGLE/MULTIPLE 05/24/2009 ESOPHAGOGASTRODUODENOSCOPY TRANSORAL DIAGNOSTIC 04/05/2013 EGD ESOPHAGOGASTRODUODENOSCOPY TRANSORAL DIAGNOSTIC 01/19/2018 EGD EXCISION GANGLION WRIST DORSAL/VOLAR PRIMARY 11/13/2012 Left wrist EXCISION OF GANGLION, WRIST 04/23/2005 right wrist LAPAROSCOPY DIAGNOSTIC 2013 no endometriosis seen NEXPLANON INSERTION 01/01/2022 Family History FAMILY HISTORY Problem Relation Age of Onset Hypertension Mother other (SLEEP APNEA) Mother other (unknown) Father No Known Problems Sister No Known Problems Sister No Known Problems Maternal Grandmother Arthritis Maternal Grandfather No Known Problems Son No Known Problems Son No Known Problems Son Patient Allergies ALLERGIES Allergen Reactions Diphenoxylate-Atrop* Intolerance, GI Upset Fish Swelling, Other: See Comments throat, tongue AND lips itch per pt. Current Medications Current Outpatient Medications on File Prior to Visit Medication Sig etonogestrel (NEXPLANON) subdermal implant 68 mg 1 Each by SUBDERMAL route as directed. cyclobenzaprine (FLEXERIL) 10 mg tablet Take 1/2 to 1 full tablet by mouth 3 times daily as needed for muscle spasm. famotidine (PEPCID) 20 mg tablet Take 1 tablet by mouth twice daily. ondansetron orally disintegrating (ZOFRAN ODT) 4 mg disintegrating tablet dissolve 1 tablet ON TONGUE every 8 hours if needed for nausea dicyclomine (BENTYL) 10 mg capsule take 2 capsules by mouth three times daily as needed promethazine (PHENERGAN) 25 mg tablet Take 1 tablet by mouth every 8 hours as needed for nausea/vomiting. chlorproMAZINE (THORAZINE) 10 mg tablet take 1 tablet by mouth four times a day if needed for nausea acetaminophen 325 mg cap Take by mouth as needed. No current facility-administered medications on file prior to visit. Social History Social History Tobacco Use Smoking status: Former Packs/day: 0.50 Years: 4.00 Additional pack years: 0.00 Total pack years: 2.00 Types: Cigarettes Quit date: 03/24/2005 Years since quittin.9 Smokeless tobacco: Never Vaping Use Vaping Use: Never used Substance Use Topics Alcohol use: Not Currently Comment: socially Drug use: Yes Types: Marijuana Comment: No Marijuan use since early February 2018 REVIEW OF SYSTEMS: as above Reviewed relevant PMHx, PSHx, Social Hx, current medications and allergies. Review of Symptoms REVIEW OF SYSTEMS See HPI. EXAM: BP 100/60 (BP Site: Left Arm, BP Position: Sitting, BP Cuff Size: Regular Adult) Pulse 60 Resp 12 Wt 68 kg (150 lb) LMP 09/27/2022 (Exact Date) BMI 26.57 kg/m? General Appearance: Well appearing, alert, in no acute distress, well-hydrated, well nourished.. Skin: Skin color, texture, turgor normal, no suspicious rashes or lesions. Extremities: No deformities, edema, skin discoloration, clubbing or cyanosis. Good capillary refill. , Positive findings: joint location: on left wrist pain, painful movement, and stiffness. Musculoskeletal: No joint swelling, deformity, or tenderness. Peripheral Pulses: Normal. Health Maintenance List Hepatitis B Vaccine(1 of 3 - 3-dose series) Never done Covid-19 Vaccine(1) Never done Depression Assessment Never done Influenza Vaccin (more content not included)... [facility] 01-02-2023 Note HNO ID: [id number] Author: Juan Montana MD Service: ? Author Type: Physician Type: Progress Notes Filed: 01/02/2023 10:05 AM Note Text: HISTORY AND PHYSICAL - BREAST COMPLAINT Fadia Gutierrez Edwin 1985 REFERRING PHYSICIAN: CHIEF COMPLAINT: Breast tenderness, abnormal left breast imaging HPI: The patient is a 37 year old female with a complaint of an abnormal mammogram. Anisha noticed discomfort in her left breast for approximately the past 4 months. She noted more discomfort when she was wearing a tighter bra or when she was palpating the area. She noted no true suspicious masses or changing masses. Denies a family history of breast cancer The patient had a mammogram with ultrasound on December which demonstrated: IMPRESSION: INCOMPLETE: NEEDS ADDITIONAL IMAGING EVALUATION The 9 mm round focal asymmetry in the left breast is indeterminate. An ultrasound is recommended. There is no abnormality seen in the left breast to correspond with the pain, however, clinical correlation is recommended. LIMITED ULTRASOUND OF LEFT BREAST AND AXILLA: 12/03/2022 RESULT: No prior exams were available for comparison. Color flow and real-time ultrasound of the left breast 2-3 o'clock, 9 o'clock, and axilla regions were performed. Lucas scale images of the real-time examination were reviewed. There is a 5 mm benign complex cyst in the left breast at 2 o'clock. There also is a 5 mm benign appearing complex cyst in the left breast at 3 o'clock. There is a 0.8 cm x 0.6 cm x 0.8 cm lobulated mass with a circumscribed margin in the left breast at 3 o'clock middle depth 3 cm from the nipple. This lobulated mass is hypoechoic with internal echoes. This correlates as palpated and with mammography findings. A few axillary nodes have mildly thickened cortex measuring 4 mm. IMPRESSION: SUSPICIOUS FINDING - BIOPSY SHOULD BE CONSIDERED The 0.8 cm x 0.6 cm x 0.8 cm lobulated mass in the left breast is suspicious of malignancy. An ultrasound guided biopsy is recommended. A few axillary nodes have mildly thickened cortex measuring 4 mm. There is no abnormality seen in the left breast to correspond with the pain, however, clinical correlation is recommended. The patient denies a history of breast masses. She does not perform a self breast exam routinely. She notes no skin changes. She denies nipple discharge. She notes no axillary masses. She notes no family history of breast problems. She notes no significant breast trauma or breast difficulties in the past. The patient is being seen by me today at the request of Dr. Sergio Wilhelm DO for my opinion and advice regarding abnormal left breast imaging. PAST MEDICAL HISTORY Diagnosis Date Abdominal pain, right upper quadrant Anemia Chlamydia Clostridium difficile colitis 2002 Cyclic vomiting syndrome depression Ganglion cyst of wrist 2005 Gonorrhea Hyperplastic colon polyp benign Migraines Post traumatic stress disorder (PTSD) 01/24/2011 hemorrhage STD (sexually transmitted disease) chlamydia ag 16 Tetrahydrocannabinol (THC) use disorder, mild, abuse 06/26/2017 Admitted to Thyromegaly 06/07/2016 PAST SURGICAL HISTORY Procedure Laterality Date CERCLAGE OF CERVIX VAGINAL first CHOLECYSTECTOMY 06/02/2009 COLONOSCOPY FLX DX W/COLLJ SPEC WHEN PFRMD 10/2009 Colonoscopy COLONOSCOPY FLX DX W/COLLJ SPEC WHEN PFRMD 04/05/2013 Colonoscopy EGD TRANSORAL BIOPSY SINGLE/MULTIPLE 05/24/2009 ESOPHAGOGASTRODUODENOSCOPY TRANSORAL DIAGNOSTIC 04/05/2013 EGD ESOPHAGOGASTRODUODENOSCOPY TRANSORAL DIAGNOSTIC 01/19/2018 EGD EXCISION GANGLION WRIST DORSAL/VOLAR PRIMARY 11/13/2012 Left wrist EXCISION OF GANGLION, WRIST 04/23/2005 right wrist LAPAROSCOPY DIAGNOSTIC 2013 no endometriosis seen NEXPLANON INSERTION 01/01/2022 Current Outpatient Medications Medication Sig Dispense Refill acetaminophen 325 mg cap Take by mouth as needed. chlorproMAZINE (THORAZINE) 10 mg tablet take 1 tablet by mouth four times a day if needed for nausea cyclobenzaprine (FLEXERIL) 10 mg tablet Take 1/2 to 1 full tablet by mouth 3 times daily as needed for muscle spasm. 30 tablet 1 dicyclomine (BENTYL) 10 mg capsule take 2 capsules by mouth three times daily as needed 40 capsule 1 etonogestrel (NEXPLANON) subdermal implant 68 mg 1 Each by SUBDERMAL route as directed. 1 Each 0 famotidine (PEPCID) 20 mg tablet Take 1 tablet by mouth twice daily. 60 tablet 1 ondansetron orally disintegrating (ZOFRAN ODT) 4 mg disintegrating tablet dissolve 1 tablet ON TONGUE every 8 hours if needed for nausea 20 tablet 1 promethazine (PHENERGAN) 25 mg tablet Take 1 tablet by mouth every 8 hours as needed for nausea/vomiting. 60 tablet 2 No current facility-administered medications for this visit. ALLERGIES: Diphenoxylate-Atropine and Fish PERSONAL HISTORY: Social History Tobacco Use Smoking stat (more content not included)... [facility] 12-03-2022 Note HNO ID: [id number] Author: Zaida Gresham RDMS Service: ? Author Type: Medicare Specialist Type: Progress Notes Filed: 12/03/2022 4:37 PM Note Text: Radiology Service Progress Note PATIENT NAME: Fadia Pineda DATE OF SERVICE: December 03, 2022 TIME: 4:37 PM PATIENT IDENTITY VERIFICATION COMPLETED USING TWO (2) IDENTIFIERS: Name and Date of confirmed by patient verbally. FALL SCREENING: Has the patient had 2 falls in the last year or 1 fall with injury or currently using an Ambulatory Assistive Device (Walker, Cane, Wheelchair, Crutches, etc.)? No PATIENT GENDER DATA: Female. status: : No status: NO. PATIENT RELEVANT IMPLANT DATA REVIEWED: Not Applicable RADIOLOGY DEPARTMENT: Ultrasound PERIPHERAL IV DATA: Not applicable SIGNED BY: Zaida Gresham RDMS December 03, 2022 4:37 PM [facility] 12-03-2022 Note HNO ID: [id number] Author: Love Fong Mammo Tech Service: ? Author Type: Medicare Specialist Type: Progress Notes Filed: 12/03/2022 1:19 PM Note Text: Radiology Service Progress Note PATIENT NAME: Fadia Pineda DATE OF SERVICE: December 03, 2022 TIME: 12:54 PM PATIENT IDENTITY VERIFICATION COMPLETED USING TWO (2) IDENTIFIERS: Name and Date of confirmed by patient verbally. FALL SCREENING: Has the patient had 2 falls in the last year or 1 fall with injury or currently using an Ambulatory Assistive Device (Walker, Cane, Wheelchair, Crutches, etc.)? No PATIENT GENDER DATA: Female. status: : No status: NO. PATIENT RELEVANT IMPLANT DATA REVIEWED: Not Applicable RADIOLOGY DEPARTMENT: Mammography PERIPHERAL IV DATA: Not applicable SIGNED BY: Camille Newman December 03, 2022 12:54 PM [facility] 12-03-2022 History of Presen t illness Narrative Radiology Service Progress Note PATIENT NAME: Fadia Pineda DATE OF SERVICE: December 03, 2022 TIME: 4:37 PM PATIENT IDENTITY VERIFICATION COMPLETED USING TWO (2) IDENTIFIERS: Name and Date of confirmed by patient verbally. FALL SCREENING: Has the patient had 2 falls in the last year or 1 fall with injury or currently using an Ambulatory Assistive Device (Walker, Cane, Wheelchair, Crutches, etc.)? No PATIENT GENDER DATA: Female. status: : No status: NO. PATIENT RELEVANT IMPLANT DATA REVIEWED: Not Applicable RADIOLOGY DEPARTMENT: Ultrasound PERIPHERAL IV DATA: Not applicable SIGNED BY: Zaida Gresham RDMS December 03, 2022 4:37 PM documented in this encounter [facility] 11-28-2022 Note HNO ID: [id number] Author: Zaida Gresham RDMS Service: ? Author Type: Medicare Specialist Type: Progress Notes Filed: 11/28/2022 11:46 AM Note Text: Radiology Service Progress Note PATIENT NAME: Fadia Pineda DATE OF SERVICE: November 28, 2022 TIME: 11:46 AM PATIENT IDENTITY VERIFICATION COMPLETED USING TWO (2) IDENTIFIERS: Name and Date of confirmed by patient verbally. FALL SCREENING: Has the patient had 2 falls in the last year or 1 fall with injury or currently using an Ambulatory Assistive Device (Walker, Cane, Wheelchair, Crutches, etc.)? No PATIENT GENDER DATA: Female. status: : No status: NO. PATIENT RELEVANT IMPLANT DATA REVIEWED: Not Applicable RADIOLOGY DEPARTMENT: Ultrasound PERIPHERAL IV DATA: Not applicable SIGNED BY: Zaida Gresham RDMS November 28, 2022 11:46 AM [facility] 11-28-2022 Note HNO ID: [id number] Author: Zaida Gresham RDMS Service: ? Author Type: Medicare Specialist Type: Progress Notes Filed: 11/28/2022 11:45 AM Note Text: Radiology Service Progress Note PATIENT NAME: Fadia Pineda DATE OF SERVICE: November 28, 2022 TIME: 11:45 AM PATIENT IDENTITY VERIFICATION COMPLETED USING TWO (2) IDENTIFIERS: Name and Date of confirmed by patient verbally. FALL SCREENING: Has the patient had 2 falls in the last year or 1 fall with injury or currently using an Ambulatory Assistive Device (Walker, Cane, Wheelchair, Crutches, etc.)? No PATIENT GENDER DATA: Female. status: : No status: NO. PATIENT RELEVANT IMPLANT DATA REVIEWED: Not Applicable RADIOLOGY DEPARTMENT: Ultrasound PERIPHERAL IV DATA: Not applicable SIGNED BY: Zaida Gresham RDMS November 28, 2022 11:45 AM [facility] 11-28-2022 History of Presen t illness Narrative Radiology Service Progress Note PATIENT NAME: Fadia Pineda DATE OF SERVICE: November 28, 2022 TIME: 11:46 AM PATIENT IDENTITY VERIFICATION COMPLETED USING TWO (2) IDENTIFIERS: Name and Date of confirmed by patient verbally. FALL SCREENING: Has the patient had 2 falls in the last year or 1 fall with injury or currently using an Ambulatory Assistive Device (Walker, Cane, Wheelchair, Crutches, etc.)? No PATIENT GENDER DATA: Female. status: : No status: NO. PATIENT RELEVANT IMPLANT DATA REVIEWED: Not Applicable RADIOLOGY DEPARTMENT: Ultrasound PERIPHERAL IV DATA: Not applicable SIGNED BY: Zaida Gresham RDMS November 28, 2022 11:46 AM documented in this encounter [facility] 11-20-2022 Miscellaneous Notes Ordered Xin Vyas PA-C Patient scheduled for nurse visit 11/22/22 to receive Hepatitis B vaccine. Please place order at this time. Daisy Bernal LPN documented in this encounter [facility] 11-18-2022 Note HNO ID: [id number] Author: Corey Sloan MD Service: ? 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 Similar episode this winter Location: dorsal left forearm Character: aching, throbbing, and sharp. Improving some compared to 3 days ago. Radiation: up the arm Aggravating: moving her wrist a certain way Relieving: wrist splint given here in May Pain relievers: none Associated: Pertinent negatives: Denies numbness MEDICATIONS: etonogestrel (NEXPLANON) subdermal implant 68 mg 1 Each by SUBDERMAL route as directed. cyclobenzaprine (FLEXERIL) 10 mg tablet Take 1/2 to 1 full tablet by mouth 3 times daily as needed for muscle spasm. famotidine (PEPCID) 20 mg tablet Take 1 tablet by mouth twice daily. ondansetron orally disintegrating (ZOFRAN ODT) 4 mg disintegrating tablet dissolve 1 tablet ON TONGUE every 8 hours if needed for nausea dicyclomine (BENTYL) 10 mg capsule take 2 capsules by mouth three times daily as needed promethazine (PHENERGAN) 25 mg tablet Take 1 tablet by mouth every 8 hours as needed for nausea/vomiting. chlorproMAZINE (THORAZINE) 10 mg tablet take 1 tablet by mouth four times a day if needed for nausea acetaminophen 325 mg cap Take by mouth as needed. ALLERGIES: ALLERGIES Allergen Reactions Diphenoxylate-Atrop* Intolerance, GI Upset Fish Swelling, Other: See Comments throat, tongue AND lips itch per pt. VITALS: BP 100/68 Pulse 81 Temp 36.7 ?C (98.1 ?F) Resp 21 Wt 70.2 kg (154 lb 12.8 oz) LMP 09/27/2022 (Exact Date) SpO2 99% BMI 26.43 kg/m? PE: Pleasant, in no acute distress. Right hand dominant. Wrist: left. Full ROM with pain on pronation and flexion. Tender point at the dorsal distal forearm over the radius. Component Latest Ref Rng AND Units 12/10/2021 eGFR >=60 mL/min/1.73mA? 82 ASSESSMENT/PLAN: 1. 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 Ice after activity. - MELOXICAM 15 MG TABLET Follow up with orthopedics if not improving. Corey Sloan MD [facility] 11-18-2022 Note HNO ID: [id number] Author: Misty Perera RT(R) Service: Radiology Author Type: Technologist Type: Progress Notes Filed: 11/18/2022 2:02 PM Note Text: Radiology Service Progress Note PATIENT NAME: Fadia Pineda DATE OF SERVICE: November 18, 2022 TIME: 1:45 PM PATIENT IDENTITY VERIFICATION COMPLETED USING TWO (2) IDENTIFIERS: Name and Date of confirmed by patient verbally. FALL SCREENING: Has the patient had 2 falls in the last year or 1 fall with injury or currently using an Ambulatory Assistive Device (Walker, Cane, Wheelchair, Crutches, etc.)? No PATIENT GENDER DATA: Female. status: : No status: NO. 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 Similar episode this winter Location: dorsal left forearm Character: aching, throbbing, and sharp. Improving some compared to 3 days ago. Radiation: up the arm Aggravating: moving her wrist a certain way Relieving: wrist splint given here in May Pain relievers: none Associated: Pertinent negatives: Denies numbness MEDICATIONS: etonogestrel (NEXPLANON) subdermal implant 68 mg 1 Each by SUBDERMAL route as directed. cyclobenzaprine (FLEXERIL) 10 mg tablet Take 1/2 to 1 full tablet by mouth 3 times daily as needed for muscle spasm. famotidine (PEPCID) 20 mg tablet Take 1 tablet by mouth twice daily. ondansetron orally disintegrating (ZOFRAN ODT) 4 mg disintegrating tablet dissolve 1 tablet ON TONGUE every 8 hours if needed for nausea dicyclomine (BENTYL) 10 mg capsule take 2 capsules by mouth three times daily as needed promethazine (PHENERGAN) 25 mg tablet Take 1 tablet by mouth every 8 hours as needed for nausea/vomiting. chlorproMAZINE (THORAZINE) 10 mg tablet take 1 tablet by mouth four times a day if needed for nausea acetaminophen 325 mg cap Take by mouth as needed. ALLERGIES: ALLERGIES Allergen Reactions Diphenoxylate-Atrop* Intolerance, GI Upset Fish Swelling, Other: See Comments throat, tongue & lips itch per pt. VITALS: BP 100/68 Pulse 81 Temp 36.7 C (98.1 F) Resp 21 Wt 70.2 kg (154 lb 12.8 oz) LMP 09/27/2022 (Exact Date) SpO2 99% BMI 26.43 kg/m PE: Pleasant, in no acute distress. Right hand dominant. Wrist: left. Full ROM with pain on pronation and flexion. Tender point at the dorsal distal forearm over the radius. Component Latest Ref Rng & Units 12/10/2021 eGFR >=60 mL/min/1.73m 82 ASSESSMENT/PLAN: 1. 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 Ice after activity. - MELOXICAM 15 MG TABLET Follow up with orthopedics if not improving. Corey Sloan MD documented in this encounter [facility] 11-08-2022 Note HNO ID: [id number] Author: Dayami Castaneda APRN.GIG TENDER Service: ? Author Type: Nurse Practitioner Type: Progress Notes Filed: 11/11/2022 2:38 PM Note Text: Chief Complaint Patient presents with: Physical: Right hip pain x 2 months , chest and SOB x 1 month HPI Fadia Pineda is a 37 year old female who presents here today for Above Complaints. Today: Here today for yearly physical. CP AND SOB-only notices when bra on. OBGYN scheduled mammogram and ultrasound. Has been going on for about 2 months. Bought new bra size but this hasn't made much difference. Has not been wearing a bra and does not get these symptoms at all when she does not have one on. Muscle spasms in left rib area. This is chronic but improving from previous. Is doing things to help prevent. Past medical history, appointments, medications, allergies reviewed. Previous Medical History PAST MEDICAL HISTORY Diagnosis Date Abdominal pain, right upper quadrant Anemia Chlamydia Clostridium difficile colitis 2002 Cyclic vomiting syndrome depression Ganglion cyst of wrist 2006 Gonorrhea Hyperplastic colon polyp benign Migraines Post traumatic stress disorder (PTSD) 01/24/2011 hemorrhage STD (sexually transmitted disease) chlamydia ag 16 Tetrahydrocannabinol (THC) use disorder, mild, abuse 06/26/2017 Admitted to Thyromegaly 06/07/2016 Previous Surgical History PAST SURGICAL HISTORY Procedure Laterality Date CERCLAGE OF CERVIX VAGINAL first CHOLECYSTECTOMY 06/02/2009 COLONOSCOPY FLX DX W/COLLJ SPEC WHEN PFRMD 10/2009 Colonoscopy COLONOSCOPY FLX DX W/COLLJ SPEC WHEN PFRMD 04/05/2013 Colonoscopy EGD TRANSORAL BIOPSY SINGLE/MULTIPLE 05/24/2009 ESOPHAGOGASTRODUODENOSCOPY TRANSORAL DIAGNOSTIC 04/05/2013 EGD ESOPHAGOGASTRODUODENOSCOPY TRANSORAL DIAGNOSTIC 01/19/2018 EGD EXCISION GANGLION WRIST DORSAL/VOLAR PRIMARY 11/13/2012 Left wrist EXCISION OF GANGLION, WRIST 04/23/2005 right wrist LAPAROSCOPY DIAGNOSTIC 2013 no endometriosis seen NEXPLANON INSERTION 01/01/2022 Family History FAMILY HISTORY Problem Relation Age of Onset Hypertension Mother other (SLEEP APNEA) Mother other (unknown) Father No Known Problems Sister No Known Problems Sister No Known Problems Maternal Grandmother Arthritis Maternal Grandfather No Known Problems Son No Known Problems Son No Known Problems Son Patient Allergies ALLERGIES Allergen Reactions Diphenoxylate-Atrop* Intolerance, GI Upset Fish Swelling, Other: See Comments throat, tongue AND lips itch per pt. Current Medications Current Outpatient Medications on File Prior to Visit Medication Sig etonogestrel (NEXPLANON) subdermal implant 68 mg 1 Each by SUBDERMAL route as directed. cyclobenzaprine (FLEXERIL) 10 mg tablet Take 1/2 to 1 full tablet by mouth 3 times daily as needed for muscle spasm. famotidine (PEPCID) 20 mg tablet Take 1 tablet by mouth twice daily. ondansetron orally disintegrating (ZOFRAN ODT) 4 mg disintegrating tablet dissolve 1 tablet ON TONGUE every 8 hours if needed for nausea dicyclomine (BENTYL) 10 mg capsule take 2 capsules by mouth three times daily as needed promethazine (PHENERGAN) 25 mg tablet Take 1 tablet by mouth every 8 hours as needed for nausea/vomiting. etonogestrel (NEXPLANON) subdermal implant 68 mg 68 mg by SUBDERMAL route. chlorproMAZINE (THORAZINE) 10 mg tablet take 1 tablet by mouth four times a day if needed for nausea acetaminophen 325 mg cap Take by mouth as needed. No current facility-administered medications on file prior to visit. Social History Social History Tobacco Use Smoking status: Former Packs/day: 0.50 Years: 4.00 Additional pack years: 0.00 Total pack years: 2.00 Types: Cigarettes Quit date: 03/24/2005 Years since quittin.6 Smokeless tobacco: Never Vaping Use Vaping Use: Never used Substance Use Topics Alcohol use: Yes Comment: socially Drug use: Not Currently Types: Marijuana Comment: No Marijuan use since early February 2018 Review of Symptoms REVIEW OF SYSTEMS See HPI, otherwise negative EXAM: BP 102/64 (BP Site: Left Arm, BP Position: Sitting, BP Cuff Size: Regular Adult) Pulse 74 Resp 16 Ht 163 cm (5' 4.17 ) Wt 69.9 kg (154 lb) LMP 09/27/2022 (Exact Date) SpO2 99% BMI 26.29 kg/m? General Appearance: Well appearing, alert, in no acute distress, well-hydrated, well nourished.. Skin: Skin color, texture, turgor normal, no suspicious rashes or lesions. Head: Normocephalic, no masses, lesions, tenderness or abnormalities. Eyes: Anicteric sclera. Pupils are equally round and reactive to light. Extraocular movements are intact. . Ears: External ears normal, canals clear. Nose/Sinuses: Nares normal, septum midline, mucosa normal, no drainage or sinus tenderness. Oropharynx: Lips, mucosa, and tongue normal, teeth and gums normal, oropharynx normal. Neck: Rivera (more content not included)... [facility] 11-08-2022 Instructions Dayami Castaneda APRN.JOSE - 11/08/2022 11:45 AM EDT Have your labs drawn. Schedule your thyroid ultrasound. Schedule your abdominal ultrasound. Have your chest xray and hip xrays done. documented in this encounter [facility] 11-08-2022 History of Presen t illness Narrative Chief Complaint Patient presents with: Physical: Right hip pain x 2 months , chest and SOB x 1 month HPI Fadia Pineda is a 37 year old female who presents here today for Above Complaints. Today: Here today for yearly physical. CP & SOB-only notices when bra on. OBGYN scheduled mammogram and ultrasound. Has been going on for about 2 months. Bought new bra size but this hasn't made much difference. Has not been wearing a bra and does not get these symptoms at all when she does not have one on. Muscle spasms in left rib area. This is chronic but improving from previous. Is doing things to help prevent. Past medical history, appointments, medications, allergies reviewed. Previous Medical History PAST MEDICAL HISTORY Diagnosis Date Abdominal pain, right upper quadrant Anemia Chlamydia Clostridium difficile colitis 2001 Cyclic vomiting syndrome depression Ganglion cyst of wrist 2005 Gonorrhea Hyperplastic colon polyp benign Migraines Post traumatic stress disorder (PTSD) 01/24/2011 hemorrhage STD (sexually transmitted disease) chlamydia ag 16 Tetrahydrocannabinol (THC) use disorder, mild, abuse 06/26/2017 Admitted to Thyromegaly 06/07/2016 Previous Surgical History PAST SURGICAL HISTORY Procedure Laterality Date CERCLAGE OF CERVIX VAGINAL first CHOLECYSTECTOMY 06/02/2009 COLONOSCOPY FLX DX W/COLLJ SPEC WHEN PFRMD 10/2009 Colonoscopy COLONOSCOPY FLX DX W/COLLJ SPEC WHEN PFRMD 04/05/2013 Colonoscopy EGD TRANSORAL BIOPSY SINGLE/MULTIPLE 05/24/2009 ESOPHAGOGASTRODUODENOSCOPY TRANSORAL DIAGNOSTIC 04/05/2013 EGD ESOPHAGOGASTRODUODENOSCOPY TRANSORAL DIAGNOSTIC 01/19/2018 EGD EXCISION GANGLION WRIST DORSAL/VOLAR PRIMARY 11/13/2012 Left wrist EXCISION OF GANGLION, WRIST 04/23/2005 right wrist LAPAROSCOPY DIAGNOSTIC 2013 no endometriosis seen NEXPLANON INSERTION 01/01/2022 Family History FAMILY HISTORY Problem Relation Age of Onset Hypertension Mother other (SLEEP APNEA) Mother other (unknown) Father No Known Problems Sister No Known Problems Sister No Known Problems Maternal Grandmother Arthritis Maternal Grandfather No Known Problems Son No Known Problems Son No Known Problems Son Patient Allergies ALLERGIES Allergen Reactions Diphenoxylate-Atrop* Intolerance, GI Upset Fish Swelling, Other: See Comments throat, tongue & lips itch per pt. Current Medications Current Outpatient Medications on File Prior to Visit Medication Sig etonogestrel (NEXPLANON) subdermal implant 68 mg 1 Each by SUBDERMAL route as directed. cyclobenzaprine (FLEXERIL) 10 mg tablet Take 1/2 to 1 full tablet by mouth 3 times daily as needed for muscle spasm. famotidine (PEPCID) 20 mg tablet Take 1 tablet by mouth twice daily. ondansetron orally disintegrating (ZOFRAN ODT) 4 mg disintegrating tablet dissolve 1 tablet ON TONGUE every 8 hours if needed for nausea dicyclomine (BENTYL) 10 mg capsule take 2 capsules by mouth three times daily as needed promethazine (PHENERGAN) 25 mg tablet Take 1 tablet by mouth every 8 hours as needed for nausea/vomiting. etonogestrel (NEXPLANON) subdermal implant 68 mg 68 mg by SUBDERMAL route. chlorproMAZINE (THORAZINE) 10 mg tablet take 1 tablet by mouth four times a day if needed for nausea acetaminophen 325 mg cap Take by mouth as needed. No current facility-administered medications on file prior to visit. Social History Social History Tobacco Use Smoking status: Former Packs/day: 0.50 Years: 4.00 Additional pack years: 0.00 Total pack years: 2.00 Types: Cigarettes Quit date: 03/24/2005 Years since quittin.6 Smokeless tobacco: Never Vaping Use Vaping Use: Never used Substance Use Topics Alcohol use: Yes Comment: socially Drug use: Not Currently Types: Marijuana Comment: No Marijuan use since early February 2018 Review of Symptoms REVIEW OF SYSTEMS See HPI, otherwise negative EXAM: BP 102/64 (BP Site: Left Arm, BP Position: Sitting, BP Cuff Size: Regular Adult) Pulse 74 Resp 16 Ht 163 cm (5' 4.17 ) Wt 69.9 kg (154 lb) LMP 09/27/2022 (Exact Date) SpO2 99% BMI 26.29 kg/m General Appearance: Well appearing, alert, in no acute distress, well-hydrated, well nourished.. Skin: Skin color, texture, turgor normal, no suspicious rashes or lesions. Head: Normocephalic, no masses, lesions, tenderness or abnormalities. Eyes: Anicteric sclera. Pupils are equally round and reactive to light. Extraocular movements are intact. . Ears: External ears normal, canals clear. Nose/Sinuses: Nares normal, septum midline, mucosa normal, no drainage or sinus tenderness. Oropharynx: Lips, mucosa, and tongue normal, teeth and gums normal, oropharynx normal. Neck: Supple, no adenopathy; thyroid symmetric, normal size, no bruits. Back:no pain to palpation of vertebrae, good flexion and extension, good range of motion, no muscle tenderness, motor and sensory appear to be normal Lungs: Lungs clear to auscultation. No wheezing, rhonchi, rales.. Heart: RRR without murmur, gallop, or rubs. No ectopy. Abdomen: Abdomen soft, generalized tenderness to palpation. Bowel sounds normal. No masses, organomegaly. Extremities: No deformities, edema, skin discoloration, clubbing or cyanosis. Good capillary refill. . Musculoskeletal: No joint swelling, deformity, or tenderness. Peripheral Pulses: Normal. Neurologic: Gait normal. Reflexes normal and symmetric. Sensation grossly intact.. Lymph Nodes: No cervical lymphadenopathy and No supraclavicular lymphadenopathy. Psychiatric: pleasant, cooperative. Health Maintenance List HEPATITIS B(1 of 3 - 3-dose series) Never done COVID-19 VACCINE(1) Never done DEPRESSION ASSESSMENT Never done INFLUENZA(1) due on 11/22/2022 PAP TESTING due on 12/08/2023 HPV TESTING due on 12/08/2023 DTAP,TDAP,TD(4 - Td or Tdap) due on 08/26/2028 HEPATITIS C SCREENING Completed HIV SCREENING Completed HPV VACCINE Aged Out Data reviewed See HPI, otherwise negative ASSESSMENT/PLAN: 1. Well adult exam - ICD9: V70.0, ICD10: Z00.00 (primary diagnosis) - Counseled on healthy diet and regular exercise - Calcium intake with supplements or by diet of 1000 mg/day for under 50, 3199-0138 mg/day for 50+ - Follow up for annual exam in one year - CBC - COMP METABOLIC PANEL - HGB A1C - TSH BLD 2. Thyroid goiter - ICD9: 240.9, ICD10: E04.9 - TSH BLD - T4 FREE/FREE THYROX - T3 BLD - THYROID PEROXIDASE ANTIBODY BLOOD - THYROGLOBULIN AB 3. Muscle spasm - ICD9: 728.85, ICD10: M62.838 - US ABD RIGHT UPPER QUADRANT - XR HIP BILATERAL 5V PEL/AP/LAT EACH HIP - US ABDOMEN COMPLETE 4. Tightness in chest - ICD9: 786.59, ICD10: R07.89 Atypical chest pain, symptoms are not consistent with cardiac ischemia due to nonexertional nature of symptom possible etiology include Costochondritis/chest wall pain and Anxiety - Electrocardiogram is NSR - XR CHEST 2V FRONTAL/LAT 5. Goiter - ICD9: 240.9, ICD10: E04.9 - TSH BLD - T4 FREE/FREE THYROX - T3 BLD - THYROID PEROXIDASE ANTIBODY BLOOD - THYROGLOBULIN AB 6. Generalized abdominal pain - ICD9: 789.07, ICD10: R10.84 - US ABDOMEN COMPLETE 7. Pain of right hip - ICD9: 719.45, ICD10: M25.551 - XR HIP BILATERAL 5V PEL/AP/LAT EACH HIP - US ABDOMEN COMPLETE 8. Family history of thyroid disorder - ICD9: V18.19, ICD10: Z83.49 - TSH BLD - T4 FREE/FREE THYROX - T3 BLD - THYROID PEROXIDASE ANTIBODY BLOOD - THYROGLOBULIN AB 9. Screening for thyroid disorder - ICD9: V77.0, ICD10: Z13.29 - TSH BLD - T4 FREE/FREE THYROX - T3 BLD - THYROID PEROXIDASE ANTIBODY BLOOD - THYROGLOBULIN AB 10. Screening for diabetes mellitus - ICD9: V77.1, ICD10: Z13.1 - COMP METABOLIC PANEL - HGB A1C 11. Screening for lipid disorders - ICD9: V77.91, ICD10: Z13.220 - LIPID PANEL BASIC Dayami Castaneda APRN.GIG TENDER documented in this encounter [facility] 10-24-2022 Note HNO ID: [id number] Author: Rabia Romero APRN.GIG TENDER Service: ? Author Type: Nurse Practitioner Type: Progress Notes Filed: 10/24/2022 11:51 AM Note Text: Fadia is a 37 year old who presents for an annual gynecologic exam with complaints, left breast pain x 1 month and right hip pain x 2 months . Intermittent aching pain to outer left breast x 1 month. Denies any lumps, skin changes, redness or nipple discharge. Has stopped wearing bras often because the bra increases the aching. Mother had some kind of breast problem that ended up being benign but states that her mother never talked much about it. Right hip pain - pain intermittent and to hip socket with movement. No trauma. Some days she has no pain and thinks it is gone and then all of a sudden she has pain again. She has not made an appointment for evaluation with PCP. Menses: random spotting with Nexplanon Contraception: Nexplanon 01/01/2022 HPV vaccine: No Last Pap: 12/10/2018 normal HPV: 12/10/2018 negative History of abnormal pap: No Last mammogram: never Sexually active: Yes History of STDS: chlamydia, GC and trichomonas Concern for STD: none Time with current partner: 17 years Pain with intercourse: Yes long-term- deep penetration Postcoital bleeding: No Documentation from previous visit of 10/03/2021 was copied and pasted, documentation has been reviewed and edited as necessary for today's visit. 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 History Comments: Sexual Activity: Yes; Male; Nexplanon Contraception: Implant PAST MEDICAL HISTORY Diagnosis Date Abdominal pain, right upper quadrant Anemia Chlamydia Clostridium difficile colitis 2002 Cyclic vomiting syndrome depression Ganglion cyst of wrist 2005 Gonorrhea Hyperplastic colon polyp benign Migraines Post traumatic stress disorder (PTSD) 01/24/2011 hemorrhage STD (sexually transmitted disease) chlamydia ag 17 Tetrahydrocannabinol (THC) use disorder, mild, abuse 06/26/2017 Admitted to Thyromegaly 06/07/2016 PAST SURGICAL HISTORY Procedure Laterality Date CERCLAGE OF CERVIX VAGINAL first CHOLECYSTECTOMY 06/02/2009 COLONOSCOPY FLX DX W/COLLJ SPEC WHEN PFRMD 10/2009 Colonoscopy COLONOSCOPY FLX DX W/COLLJ SPEC WHEN PFRMD 04/05/2013 Colonoscopy EGD TRANSORAL BIOPSY SINGLE/MULTIPLE 05/24/2009 ESOPHAGOGASTRODUODENOSCOPY TRANSORAL DIAGNOSTIC 04/05/2013 EGD ESOPHAGOGASTRODUODENOSCOPY TRANSORAL DIAGNOSTIC 01/19/2018 EGD EXCISION GANGLION WRIST DORSAL/VOLAR PRIMARY 11/13/2012 Left wrist EXCISION OF GANGLION, WRIST 04/23/2005 right wrist LAPAROSCOPY DIAGNOSTIC 2013 no endometriosis seen NEXPLANON INSERTION 01/01/2022 FAMILY HISTORY Problem Relation Age of Onset Hypertension Mother other (SLEEP APNEA) Mother other (unknown) Father No Known Problems Sister No Known Problems Sister No Known Problems Maternal Grandmother Arthritis Maternal Grandfather No Known Problems Son No Known Problems Son No Known Problems Son SOCIAL HISTORY Social History Tobacco Use Smoking status: Former Packs/day: 0.50 Years: 4.00 Total pack years: 2.00 Types: Cigarettes Quit date: 03/24/2005 Years since quittin.5 Smokeless tobacco: Never Vaping Use Vaping Use: Never used Substance Use Topics Alcohol use: Yes Comment: socially Drug use: Not Currently Types: Marijuana Comment: No Marijuan use since early February 2018 REVIEW OF SYSTEMS Abdomen: No abdominal pain, nausea, vomiting, diarrhea, or constipation. No bloating, early satiety, indigestion, or increased flatulence. Bladder: No dysuria, gross hematuria, urinary frequency, urinary urgency, or incontinence. Breast: see HPI. No breast lumps, nipple d/c, overlying skin changes, redness or skin retraction. Allergies and current medication updated:Yes EXAM: BP 112/68 Ht 5' 3 (1.60m) Wt 149 lb (67.6kg) LMP 09/27/2022 BMI 26.40 kg/(m2). GENERAL: pleasant, female in no apparent distress HEENT: Normocephalic, atraumatic, mucus membranes moist, and no lesions NECK: Supple, full range of motion, no adenopathy, and thyroid enlarged per her usual DERMATOLOGY: Normal, without lesions, non-icteric, and non-hirsute BREAST: symmetric, right breast - soft, non-tender, no dominant mass, normal nipple-areolar complex, no lymphadenopathy, and no nipple discharge. Right breast -soft, normal nipple areolar complex, no lymphadenopathy, and no nipple discharge. Positive findings -1 cm firm nodule at 3:00 located 2 cm from the nipple and subcentimeter firm nodule at 9:00 located 1 cm from the nipple with tenderness to outer and inner breast. CHEST: Normal inspiratory effort ABDOMEN: soft, non-tender, and no masses PELVIC: external gen (more content not included)... [facility] 10-24-2022 History of Presen t illness Narrative Fadia is a 37 year old who presents for an annual gynecologic exam with complaints, left breast pain x 1 month and right hip pain x 2 months . Intermittent aching pain to outer left breast x 1 month. Denies any lumps, skin changes, redness or nipple discharge. Has stopped wearing bras often because the bra increases the aching. Mother had some kind of breast problem that ended up being benign but states that her mother never talked much about it. Right hip pain - pain intermittent and to hip socket with movement. No trauma. Some days she has no pain and thinks it is gone and then all of a sudden she has pain again. She has not made an appointment for evaluation with PCP. Menses: random spotting with Nexplanon Contraception: Nexplanon 01/01/2022 HPV vaccine: No Last Pap: 12/10/2018 normal HPV: 12/10/2018 negative History of abnormal pap: No Last mammogram: never Sexually active: Yes History of STDS: chlamydia, GC and trichomonas Concern for STD: none Time with current partner: 17 years Pain with intercourse: Yes long-term- deep penetration Postcoital bleeding: No Documentation from previous visit of 10/03/2021 was copied and pasted, documentation has been reviewed and edited as necessary for today's visit. 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 History Comments: Sexual Activity: Yes; Male; Nexplanon Contraception: Implant PAST MEDICAL HISTORY Diagnosis Date Abdominal pain, right upper quadrant Anemia Chlamydia Clostridium difficile colitis 2001 Cyclic vomiting syndrome depression Ganglion cyst of wrist 2005 Gonorrhea Hyperplastic colon polyp benign Migraines Post traumatic stress disorder (PTSD) 01/24/2011 hemorrhage STD (sexually transmitted disease) chlamydia ag 17 Tetrahydrocannabinol (THC) use disorder, mild, abuse 06/26/2017 Admitted to Thyromegaly 06/07/2016 PAST SURGICAL HISTORY Procedure Laterality Date CERCLAGE OF CERVIX VAGINAL first CHOLECYSTECTOMY 06/02/2009 COLONOSCOPY FLX DX W/COLLJ SPEC WHEN PFRMD 10/2009 Colonoscopy COLONOSCOPY FLX DX W/COLLJ SPEC WHEN PFRMD 04/05/2013 Colonoscopy EGD TRANSORAL BIOPSY SINGLE/MULTIPLE 05/24/2009 ESOPHAGOGASTRODUODENOSCOPY TRANSORAL DIAGNOSTIC 04/05/2013 EGD ESOPHAGOGASTRODUODENOSCOPY TRANSORAL DIAGNOSTIC 01/19/2018 EGD EXCISION GANGLION WRIST DORSAL/VOLAR PRIMARY 11/13/2012 Left wrist EXCISION OF GANGLION, WRIST 04/23/2005 right wrist LAPAROSCOPY DIAGNOSTIC 2013 no endometriosis seen NEXPLANON INSERTION 01/01/2022 FAMILY HISTORY Problem Relation Age of Onset Hypertension Mother other (SLEEP APNEA) Mother other (unknown) Father No Known Problems Sister No Known Problems Sister No Known Problems Maternal Grandmother Arthritis Maternal Grandfather No Known Problems Son No Known Problems Son No Known Problems Son SOCIAL HISTORY Social History Tobacco Use Smoking status: Former Packs/day: 0.50 Years: 4.00 Total pack years: 2.00 Types: Cigarettes Quit date: 03/24/2005 Years since quittin.5 Smokeless tobacco: Never Vaping Use Vaping Use: Never used Substance Use Topics Alcohol use: Yes Comment: socially Drug use: Not Currently Types: Marijuana Comment: No Marijuan use since early February 2018 REVIEW OF SYSTEMS Abdomen: No abdominal pain, nausea, vomiting, diarrhea, or constipation. No bloating, early satiety, indigestion, or increased flatulence. Bladder: No dysuria, gross hematuria, urinary frequency, urinary urgency, or incontinence. Breast: see HPI. No breast lumps, nipple d/c, overlying skin changes, redness or skin retraction. Allergies and current medication updated:Yes EXAM: BP 112/68 Ht 5' 3 (1.60m) Wt 149 lb (67.6kg) LMP 09/27/2022 BMI 26.40 kg/(m^2). GENERAL: pleasant, female in no apparent distress HEENT: Normocephalic, atraumatic, mucus membranes moist, and no lesions NECK: Supple, full range of motion, no adenopathy, and thyroid enlarged per her usual DERMATOLOGY: Normal, without lesions, non-icteric, and non-hirsute BREAST: symmetric, right breast - soft, non-tender, no dominant mass, normal nipple-areolar complex, no lymphadenopathy, and no nipple discharge. Right breast -soft, normal nipple areolar complex, no lymphadenopathy, and no nipple discharge. Positive findings -1 cm firm nodule at 3:00 located 2 cm from the nipple and subcentimeter firm nodule at 9:00 located 1 cm from the nipple with tenderness to outer and inner breast. CHEST: Normal inspiratory effort ABDOMEN: soft, non-tender, and no masses PELVIC: external genitalia normal, normal Bartholin's glands, urethra, [place]'s glands, no vulvar lesions, no cervical lesions, good vaginal support, physiologic discharge present, normal appearing perineal body and perianal region BIMANUAL: uterus normal size, shape and consistency, no adnexal masses, and non-tender RECTOVAGINAL: deferred. NEURO: alert and oriented x3,exam grossly non-focal EXTREMITIES: normal ASSESSMENT/PLAN: 1) Health maintenance: Pap/HPV up to date. Nutrition, exercise and routine health maintenance exams reviewed. 2. Mastalgia - ICD9: 611.71, ICD10: N64.4 - US BREAST LTD LEFT - KATHARINE DIAGNOSTIC BILATERAL 3. Mass of left breast, unspecified quadrant - ICD9: 611.72, ICD10: N63.20 -Nodule at 4:00 and 9:00 - US BREAST LTD LEFT - KATHARINE DIAGNOSTIC BILATERAL 4) Contraception: Nexplanon. Contraceptive options reviewed and information provided. 5) STD screening: Declined STD check. 6) Follow up one year or sooner as needed To follow with PCP for hip pain evaluation. Rabia Romero APRN.JOSE documented in this encounter [facility] 06-25-2022 Note HNO ID: [id number] Author: Cody Cortes Service: ? Author Type: ? Type: Progress Notes Filed: 06/25/2022 4:21 PM Note Text: POPULATION HEALTH NAVIGATION OUTREACH Action/FYI RP Outreach: Patient Declined KINZA consult. Patient Identified by Name and : YES, via [place] Outreach Outcome/Action Spoke to patient / parent / legal guardian: Patient declined Did you use a PCP flex slot to schedule this appointment? No Reason for Outreach Care Gap or Scheduling/Wellness visits Payer: Payor: [place] MEDICAID / Plan: [facility] MEDICAID / Product Type: Medicaid / Care Gap Reviewed:: ORQ Reminder: Reminder note to check Health Maintenance for items below Health Maintenance items due: HEPATITIS B(1 of 3 - 3-dose series) Never done COVID-19 VACCINE(1) Never done DEPRESSION ASSESSMENT Never done Navigation Signature: Cody Cortes June 25, 2022 4:21 PM [facility] 06-25-2022 History of Presen t illness Narrative POPULATION HEALTH NAVIGATION OUTREACH Action/FYI RP Outreach: Patient Declined KINZA consult. Patient Identified by Name and : YES, via [place] Outreach Outcome/Action Spoke to patient / parent / legal guardian: Patient declined Did you use a PCP flex slot to schedule this appointment? No Reason for Outreach Care Gap or Scheduling/Wellness visits Payer: Payor: [place] MEDICAID / Plan: [facility] MEDICAID / Product Type: Medicaid / Care Gap Reviewed:: ORQ Reminder: Reminder note to check Health Maintenance for items below Health Maintenance items due: HEPATITIS B(1 of 3 - 3-dose series) Never done COVID-19 VACCINE(1) Never done DEPRESSION ASSESSMENT Never done Navigation Signature: Cody Cortes June 25, 2022 4:21 PM documented in this encounter [facility] 06-25-2022 Note Patient Outreach (RE FPHY) FADIA PINEDA ([id number]) 1985 F Date Time Provider Department 06/25/22 NO PCP (HISTORICAL) RE[facility] During your visit today, we recorded the following information about you: Cody Cortes 06/25/2022 4:21 PM Signed POPULATION HEALTH NAVIGATION OUTREACH Action/I RP Outreach: Patient Declined KINZA consult. Patient Identified by Name and : YES, [facility] Out[facility] Outcome/Action Spoke to patient / parent / legal guardian: Patient declined Did you use a PCP flex slot to schedule this appointment? No Reason for Outreach Care Gap or Scheduling/Wellness visits Payer: Payor: [place] MEDICAID / Plan: [facility] MEDICAID / Product Type: Medicaid / Care Gap Reviewed:: ORQ Reminder: Reminder note to check Health Maintenance for items below Health Maintenance items due: HEPATITIS B(1 of 3 - 3-dose series) Never done COVID-19 VACCINE(1) Never done DEPRESSION ASSESSMENT Never done Navigation Signature: Cody Cortes June 25, 2022 4:21 PM Allergies As of Date: 06/25/2022 Noted Allergy Reaction DIPHENOXYLATE-ATROPINE 01/13/2017 5 - Intolerance 8 - GI Upset FISH 08/29/2011 7 - Swelling 14 - Other: See Comments Comments: throat, tongue AND lips itch per pt. Date Reviewed: 06/15/2022 Reviewed by: Nika Yin LPN - Fully Assessed Prescriptions as of 06/25/2022 - etonogestrel (NEXPLANON) subdermal implant 68 mg 1 Each by SUBDERMAL route as directed. - cyclobenzaprine (FLEXERIL) 10 mg tablet Take 1/2 to 1 full tablet by mouth 3 times daily as needed for muscle spasm. - famotidine (PEPCID) 20 mg tablet Take 1 tablet by mouth twice daily. - ondansetron orally disintegrating (ZOFRAN ODT) 4 mg disintegrating tablet dissolve 1 tablet ON TONGUE every 8 hours if needed for nausea - dicyclomine (BENTYL) 10 mg capsule take 2 capsules by mouth three times daily as needed - promethazine (PHENERGAN) 25 mg tablet Take 1 tablet by mouth every 8 hours as needed for nausea/vomiting. - cholecalciferol, Vitamin D3, (VITAMIN D3) 1,250 mcg (50,000 unit) cap capsule Take 1 capsule by mouth one time a week. - cyanocobalamin (VITAMIN B-12) 1,000 mcg tab Take 1 tablet by mouth once daily. - etonogestrel (NEXPLANON) subdermal implant 68 mg 68 mg by SUBDERMAL route. - triamcinolone acetonide (KENALOG) 0.1 % cream - potassium chloride ER (K-DUR, KLOR-CON) 20 mEq tablet Take 20 mEq by mouth twice daily. - chlorproMAZINE (THORAZINE) 10 mg tablet take 1 tablet by mouth four times a day if needed for nausea - Cholecalciferol, Vitamin D3, 125 mcg (5,000 unit) cap Take 1 capsule by mouth once daily. - acetaminophen 325 mg cap Take by mouth as needed. - etonogestrel subdermal implant 68 mg (NEXPLANON) 1 Each by SUBDERMAL route one time only for 1 dose. - etonogestrel subdermal implant 68 mg (NEXPLANON) 1 Each by SUBDERMAL route one time only for 1 dose. - etonogestrel subdermal implant 68 mg (NEXPLANON) 1 Each by SUBDERMAL route one time only for 1 dose. 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] 08/07/2011 UTI (urinary tract infection) during *08/07/2011 11/19/2012 Threatened labor [O47.00] 08/26/2011 11/19/2012 Small for gestational age fetus affecting mothe*09/16/2011 11/19/2012 Dorsal wrist ganglion [M67.439] 11/13/2012 11/19/2012 History of loss [Z87.59] 07/18/2014 12/07/2018 High-risk [O09.90] 07/18/2014 03/21/2015 Nausea/vomiting in [O21.9] 07/18/2014 03/21/2015 Bilateral neck pain [M54.2] 03/07/2016 Irritable bowel syndrome with diarrhea [K58.0] 06/07/2016 Thyromegaly [E01.0] 06/07/2016 03/16/2018 Cyclical vomiting with nausea [R11.15] 06/07/2016 03/16/2018 Thyroid goiter [E04.9] 09/11/2016 Tetrahydrocannabinol (THC) use disorder, mild, *06/26/2017 Nausea [R11.0] 12/29/2017 03/16/2018 Epigastric pain [R10.13] 12/29/2017 History of loss in prior , c*03/05/2018 12/07/2018 High risk due to history of l*03/05/2018 12/07/2018 History of hemorrhage, currently pre*03/05/2018 12/07/2018 Family history of thyroid disorder [Z83.49] 03/05/2018 History of depression [Z86.59] 03/05/2018 12/07/2018 Marijuana use [F12.90] 03/05/2018 12/07/2018 Patient request for diagnostic testing [Z01.89] 03/05/2018 03/16/2018 Positive urine drug screen [R82.5] 03/18/2018 04/08/2018 Antepartum anemia complicating pregnanc (more content not included)... [facility] 06-16-2022 Miscellaneous Notes Patient given results and verbalized understanding of instructions given. Jesica Guo Patient was negative for trichomonas gonorrhea and chlamydia. Patient was positive for bacterial vaginosis and yeast infections neither are an STD. 2 different creams were called in to treat these please have patient pick up driver and follow directions on the cream thank you documented in this encounter [facility] 06-15-2022 Note HNO ID: [id number] Author: Radha Humphreys APRN.JOSE Service: ? Author Type: Nurse Practitioner Type: Progress Notes Filed: 06/15/2022 9:08 AM Note Text: Subjective Patient came in with complaints of vaginal itching. Patient says it started yesterday. Patient denies any other symptoms at this time. Patient's not concerned for an STD but would like STD testing at this time due to symptoms. The history is provided by the patient. No as400 administrator was used. Vaginal Problem Review of Systems Constitutional: Negative. Genitourinary: Positive for vaginal discharge. Skin: Negative. Objective Physical Exam Constitutional: Appearance: Normal appearance. Pulmonary: Effort: Pulmonary effort is normal. Neurological: Mental Status: She is alert. Did not want an exam or abdomen checked at this time. PAST MEDICAL HISTORY Diagnosis Date Abdominal pain, right upper quadrant Anemia Chlamydia Clostridium difficile colitis 2002 Cyclic vomiting syndrome depression Ganglion cyst of wrist 2006 Gonorrhea Hyperplastic colon polyp benign Migraines Post traumatic stress disorder (PTSD) 01/24/2011 hemorrhage STD (sexually transmitted disease) chlamydia ag 16 Tetrahydrocannabinol (THC) use disorder, mild, abuse 06/26/2017 Admitted to Thyromegaly 06/07/2016 PAST SURGICAL HISTORY Procedure Laterality Date CERCLAGE OF CERVIX VAGINAL first CHOLECYSTECTOMY 06/02/2009 COLONOSCOPY FLX DX W/COLLJ SPEC WHEN PFRMD 10/2009 Colonoscopy COLONOSCOPY FLX DX W/COLLJ SPEC WHEN PFRMD 04/05/2013 Colonoscopy EGD TRANSORAL BIOPSY SINGLE/MULTIPLE 05/24/2009 ESOPHAGOGASTRODUODENOSCOPY TRANSORAL DIAGNOSTIC 04/05/2013 EGD ESOPHAGOGASTRODUODENOSCOPY TRANSORAL DIAGNOSTIC 01/19/2018 EGD EXCISION GANGLION WRIST DORSAL/VOLAR PRIMARY 11/13/2012 Left wrist EXCISION OF GANGLION, WRIST 04/23/2005 right wrist LAPAROSCOPY DIAGNOSTIC 2013 no endometriosis seen NEXPLANON INSERTION 01/01/2022 ALLERGIES Diphenoxylate-Atropine and Fish MEDICATIONS etonogestrel (NEXPLANON) subdermal implant 68 mg 1 Each by SUBDERMAL route as directed. cyclobenzaprine (FLEXERIL) 10 mg tablet Take 1/2 to 1 full tablet by mouth 3 times daily as needed for muscle spasm. famotidine (PEPCID) 20 mg tablet Take 1 tablet by mouth twice daily. ondansetron orally disintegrating (ZOFRAN ODT) 4 mg disintegrating tablet dissolve 1 tablet ON TONGUE every 8 hours if needed for nausea dicyclomine (BENTYL) 10 mg capsule take 2 capsules by mouth three times daily as needed promethazine (PHENERGAN) 25 mg tablet Take 1 tablet by mouth every 8 hours as needed for nausea/vomiting. etonogestrel (NEXPLANON) subdermal implant 68 mg 68 mg by SUBDERMAL route. chlorproMAZINE (THORAZINE) 10 mg tablet take 1 tablet by mouth four times a day if needed for nausea acetaminophen 325 mg cap Take by mouth as needed. cholecalciferol, Vitamin D3, (VITAMIN D3) 1,250 mcg (50,000 unit) cap capsule Take 1 capsule by mouth one time a week. (Patient not taking: Reported on 12/10/2021) cyanocobalamin (VITAMIN B-12) 1,000 mcg tab Take 1 tablet by mouth once daily. (Patient not taking: No sig reported) triamcinolone acetonide (KENALOG) 0.1 % cream (Patient not taking: No sig reported) potassium chloride ER (K-DUR, KLOR-CON) 20 mEq tablet Take 20 mEq by mouth twice daily. (Patient not taking: No sig reported) Cholecalciferol, Vitamin D3, 125 mcg (5,000 unit) cap Take 1 capsule by mouth once daily. (Patient not taking: Reported on 12/10/2021) etonogestrel subdermal implant 68 mg (NEXPLANON) 1 Each by SUBDERMAL route one time only for 1 dose. etonogestrel subdermal implant 68 mg (NEXPLANON) 1 Each by SUBDERMAL route one time only for 1 dose. etonogestrel subdermal implant 68 mg (NEXPLANON) 1 Each by SUBDERMAL route one time only for 1 dose. FAMILY HISTORY Problem Relation Age of Onset Hypertension Mother other (SLEEP APNEA) Mother other (unknown) Father No Known Problems Sister No Known Problems Sister No Known Problems Maternal Grandmother Arthritis Maternal Grandfather No Known Problems Son No Known Problems Son No Known Problems Son Social History Tobacco Use Smoking status: Former Packs/day: 0.50 Years: 4.00 Pack years: 2.00 Types: Cigarettes Quit date: 03/24/2005 Years since quittin.2 Smokeless tobacco: Never Vaping Use Vaping Use: Never used Substance Use Topics Alcohol use: No Drug use: Yes Types: Marijuana Comment: No Marijuan use since early February 2018 ASSESSMENT/PLAN: 1. Vaginal itching - ICD9: 698.1, ICD10: N89.8 - BACTERIAL VAGINOSIS AMPLIFICATION - PATRICE / TRICHOMONAS AMPLIFICATION - GC/CHLAMYDIA DNA DET No treatment At this time please treat if anything comes back positive. Patient was okay with this care plan. Radha Humphreys APRN.[facility] 06-15-2022 History of Presen t illness Narrative Subjective Patient came in with complaints of vaginal itching. Patient says it started yesterday. Patient denies any other symptoms at this time. Patient's not concerned for an STD but would like STD testing at this time due to symptoms. The history is provided by the patient. No as400 administrator was used. Vaginal Problem Review of Systems Constitutional: Negative. Genitourinary: Positive for vaginal discharge. Skin: Negative. Objective Physical Exam Constitutional: Appearance: Normal appearance. Pulmonary: Effort: Pulmonary effort is normal. Neurological: Mental Status: She is alert. Did not want an exam or abdomen checked at this time. PAST MEDICAL HISTORY Diagnosis Date Abdominal pain, right upper quadrant Anemia Chlamydia Clostridium difficile colitis 2002 Cyclic vomiting syndrome depression Ganglion cyst of wrist 2005 Gonorrhea Hyperplastic colon polyp benign Migraines Post traumatic stress disorder (PTSD) 01/24/2011 hemorrhage STD (sexually transmitted disease) chlamydia ag 16 Tetrahydrocannabinol (THC) use disorder, mild, abuse 06/26/2017 Admitted to Thyromegaly 06/07/2016 PAST SURGICAL HISTORY Procedure Laterality Date CERCLAGE OF CERVIX VAGINAL first CHOLECYSTECTOMY 06/02/2009 COLONOSCOPY FLX DX W/COLLJ SPEC WHEN PFRMD 10/2009 Colonoscopy COLONOSCOPY FLX DX W/COLLJ SPEC WHEN PFRMD 04/05/2013 Colonoscopy EGD TRANSORAL BIOPSY SINGLE/MULTIPLE 05/24/2009 ESOPHAGOGASTRODUODENOSCOPY TRANSORAL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 not taking: No sig reported) potassium chloride ER (K-DUR, KLOR-CON) 20 mEq tablet Take 20 mEq by mouth twice daily. (Patient not taking: No sig reported) Cholecalciferol, Vitamin D3, 125 mcg (5,000 unit) cap Take 1 capsule by mouth once daily. (Patient not taking: Reported on 12/10/2021) No current facility-administered medications on file prior to visit. Social History Social History Tobacco Use Smoking status: Former Packs/day: 0.50 Years: 4.00 Pack years: 2.00 Types: Cigarettes Quit date: 03/24/2005 Years since quittin.7 Smokeless tobacco: Never Vaping Use Vaping Use: Never used Substance Use Topics Alcohol use: No Drug use: Yes Types: Marijuana Comment: No Marijuan use since early February 2018 Review of Symptoms REVIEW OF SYSTEMS See HPI, otherwise negative EXAM: BP 98/60 (BP Site: Left Arm, BP Position: Sitting, BP Cuff Size: Regular Adult) Pulse 67 Resp 16 Ht 165.2 cm (5' 5.04 ) Wt 64 kg (141 lb) LMP 04/16/2021 SpO2 98% BMI 23.44 kg/m General Appearance: Well appearing, alert, in no acute distress, well-hydrated, well nourished.. Head: Normocephalic, no masses, lesions, tenderness or abnormalities. Ears: External ears normal, canals clear. Oropharynx: Lips, mucosa, and tongue normal, teeth and gums normal, oropharynx normal. Neck: Supple, no adenopathy; thyroid symmetric, normal size, no bruits. Lungs: Lungs clear to auscultation. No wheezing, rhonchi, rales.. Heart: RRR without murmur, gallop, or rubs. No ectopy. Abdomen: Normal abdominal exam, Abdomen soft, non-tender. Bowel sounds normal. No masses, organomegaly. Extremities: No deformities, edema, skin discoloration, clubbing or cyanosis. Good capillary refill. . Musculoskeletal: No joint swelling, deformity, or tenderness. Peripheral Pulses: Normal. Neurologic: Gait normal. Reflexes normal and symmetric. Sensation grossly intact.. Lymph Nodes: No cervical lymphadenopathy and No supraclavicular lymphadenopathy. Psychiatric-pleasant, cooperative. Health Maintenance List HEPATITIS B(1 of 3 - 3-dose series) Never done COVID-19 VACCINE(1) Never done DEPRESSION SCREENING due on 09/06/2020 INFLUENZA(1) due on 11/22/2021 PAP TESTING due on 12/08/2023 HPV TESTING due on 12/08/2023 DTAP,TDAP,TD(4 - Td or Tdap) due on 08/26/2028 HEPATITIS C SCREENING Completed HIV SCREENING Completed Data reviewed Previous records, office notes ASSESSMENT/PLAN: 1. Well adult exam - ICD9: V70.0, ICD10: Z00.00 (primary diagnosis) - Counseled on healthy diet and regular exercise - Calcium intake with supplements or by diet of 1000 mg/day for under 50, 1871-1048 mg/day for 50+ 2. Lightheaded - ICD9: 780.4, ICD10: R42 Suspect dehydration and/or hypoglycemia. Discussed increasing water to minimum of 64oz daily, add Body [place] for electrolytes. Keep protein snack with her-do not go more than 3 hours without eating. - CBC - COMP METABOLIC PANEL - IRON + TIBC - FERRITIN BLD 3. Dizzy - ICD9: 780.4, ICD10: R42 Suspect dehydration and/or hypoglycemia. Discussed increasing water to minimum of 64oz daily, add Body [place] for electrolytes. Keep protein snack with her-do not go more than 3 hours without eating. - CBC - COMP METABOLIC PANEL - IRON + TIBC - FERRITIN BLD 4. Neck pain on left side - ICD9: 723.1, ICD10: M54.2 Chronic, flare up. - CYCLOBENZAPRINE 10 MG TABLET 5. Muscle spasm - ICD9: 728.85, ICD10: M62.838 - CYCLOBENZAPRINE 10 MG TABLET - COMP METABOLIC PANEL Dayami Castaneda APRN.CNP documented in this encounter [facility] 10-09-2021 Miscellaneous Notes Patient called per myself to discuss pelvic ultrasound findings. Discussed adenomyosis currently controlled with Nexplanon implant. 2.6 cm simple right ovarian cyst -reviewed ovarian cysts with symptoms and need to go to ED if and severe pain. She is currently being treated for BV but has not noticed much change pelvic pain yet she plans to make GI appointment today. Will notify office with any further concerns. Rabia Romero APRN.CNP Patient viewed her pelvic ultrasound results on [facility]. Please review results. Thank you. Nikki Hunt RN documented in this encounter [facility] 10-04-2021 History of Presen t illness Narrative BV positive - metronidazole. Rabia Romero APRN.CNP documented in this encounter [facility] 10-03-2021 History of Presen t illness Narrative Fadia is a 36 year old who presents for an annual gynecologic exam with complaints, 2 year history of pelvic pain. Thinks pain is due to ovarian cysts. Pain sometimes on right and sometimes on left. Pain is shooting and shoots across lower abdomen. Sometimes has pain with intercourse and usually has this pain after SI. Has had a lot of problems with gas and sometimes has to manually separate buttocks to expel large amount of gas. Has IBS with alternating diarrhea/constipation and cyclic vomiting.Has not see gastroenterology for a long time. Does not notice change in vaginal discharge except for increased amount. Denies odor, itching. Menses: spotting with Nexplanon Contraception: Nexplanon HPV vaccine: No Last Pap: 12/10/2018 normal HPV: 12/10/2018 negative History of abnormal pap: No Last mammogram: never Sexually active: Yes History of STDS: chlamydia, GC and trichomonas Concern for STD: none Time with current partner: 15 years Pain with intercourse: Yes- deep penetration Postcoital bleeding: No Documentation from previous visit of 09/13/2020 was copied and pasted, documentation has been reviewed and edited as necessary for today's visit. 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 History Comments: Sexual Activity: Yes; Male; Nexplanon Contraception: Implant PAST MEDICAL HISTORY Diagnosis Date Abdominal pain, right upper quadrant Anemia Chlamydia Clostridium difficile colitis 2002 Cyclic vomiting syndrome depression Ganglion cyst of wrist 2005 Gonorrhea Hyperplastic colon polyp benign Migraines Post traumatic stress disorder (PTSD) 01/24/2011 hemorrhage STD (sexually transmitted disease) chlamydia ag 17 Tetrahydrocannabinol (THC) use disorder, mild, abuse 06/26/2017 Admitted to Thyromegaly 06/07/2016 PAST SURGICAL HISTORY Procedure Laterality Date CERCLAGE OF CERVIX VAGINAL first CHOLECYSTECTOMY 06/02/2009 COLONOSCOPY FLX DX W/COLLJ SPEC WHEN PFRMD 10/2009 Colonoscopy COLONOSCOPY FLX DX W/COLLJ SPEC WHEN PFRMD 04/05/2013 Colonoscopy EGD TRANSORAL BIOPSY SINGLE/MULTIPLE 05/24/2009 ESOPHAGOGASTRODUODENOSCOPY TRANSORAL DIAGNOSTIC 04/05/2013 EGD ESOPHAGOGASTRODUODENOSCOPY TRANSORAL DIAGNOSTIC 01/19/2018 EGD EXCISION GANGLION WRIST DORSAL/VOLAR PRIMARY 11/13/2012 Left wrist EXCISION OF GANGLION, WRIST 04/23/2005 right wrist LAPAROSCOPY DIAGNOSTIC 2013 no endometriosis seen NEXPLANON INSERTION 12/08/2018 Placed in office- due to come out 11/2021 FAMILY HISTORY Problem Relation Age of Onset Hypertension Mother other (SLEEP APNEA) Mother other (unknown) Father No Known Problems Sister No Known Problems Sister No Known Problems Maternal Grandmother Arthritis Maternal Grandfather No Known Problems Son No Known Problems Son No Known Problems Son SOCIAL HISTORY Social History Tobacco Use Smoking status: Former Smoker Packs/day: 0.50 Years: 4.00 Pack years: 2.00 Types: Cigarettes Quit date: 03/24/2005 Years since quittin.5 Smokeless tobacco: Never Used Vaping Use Vaping Use: Never used Substance Use Topics Alcohol use: No Drug use: Yes Types: Marijuana Comment: No Marijuan use since early February 2018 REVIEW OF SYSTEMS Abdomen:see HPI. Positive for nausea, vomiting, IBS with diarrhea and constipation and flatulence. No bloating, early satiety, indigestion. Bladder: No dysuria, gross hematuria, urinary frequency, urinary urgency, or incontinence. Breast: No breast lumps, nipple d/c, overlying skin changes, redness or skin retraction. Allergies and current medication updated:Yes EXAM: BP 90/58 Ht 5' 4 (1.63m) Wt 138 lb 3.2 oz (62.7kg) LMP 04/16/2021 BMI 23.71 kg/(m^2). GENERAL: pleasant, female in no apparent distress HEENT: Normocephalic, atraumatic, mucus membranes moist and no lesions NECK: Supple, full range of motion, no adenopathy and thyroid normal DERMATOLOGY: Normal, without lesions, non-icteric and non-hirsute BREAST: soft, non-tender, symmetric, no dominant mass, normal nipple-areolar complex, no lymphadenopathy and no nipple discharge CHEST: Normal inspiratory effort ABDOMEN: soft, non-tender and no masses PELVIC: external genitalia normal, normal Bartholin's glands, urethra, [place]'s glands, no vulvar lesions, no cervical lesions, good vaginal support, small amount white discharge present, normal appearing perineal body and perianal region BIMANUAL: uterus normal size, shape and consistency, no adnexal masses and non-tender RECTOVAGINAL: deferred. NEURO: alert and oriented x3,exam grossly non-focal EXTREMITIES: normal ASSESSMENT/PLAN: 1) Health maintenance: Pap/HPV up to date. Nutrition, exercise and routine health maintenance exams reviewed. HPV vaccine: no 2. Pelvic pain in female - ICD9: 625.9, ICD10: R10.2 - Discussed that pain may be due to ovarian cysts but more likely gas as pain shoots across lower abdomen. Pt will track pain in relation to increased flatulence episodes. - PELVIC US WHI 3. Deep dyspareunia - ICD9: 625.0, ICD10: N94.12 - PELVIC US WHI 4. Irritable bowel syndrome with both constipation and diarrhea - ICD9: 564.1, ICD10: K58.2 - CONSULT TO GASTROENTEROLOGY 5. Vaginal discharge - ICD9: 623.5, ICD10: N89.8 - BACT/PATRICE VAG GRAM STAIN 6) Contraception: Nexplanon. Contraceptive options reviewed and information provided. 7) STD screening: Declined STD check. 8) Follow up one year or sooner as needed Rabia Romero APRN.GIG TENDER documented in this encounter [facility] documented as of this encounter (statuses as of 10/03/2021) [facility] History of Past illness Narrative* Problem Noted Date Resolved Date Antepartum anemia complicating in firs t trimester 04/08/2018 12/07/2018 Overview: Anemia, add fe, check Fe levels. Becky Miller MD Positive urine drug screen 03/18/201804/08 Overview: 03/16/18 Positive cannabinoids. Rabia Romero APRN.GIG TENDER History of loss in prior , currently 03/05/2018 12/07/2018 Overview: March 16, 2018 Only on progesterone for one of her other 3 full term pregnancies. Progesterone not recommended at this time, check cervical lengths. Becky Miller MD 03/05/2018. She is with a history of Dr. Fan delivering her first child stillborn at 22w. She states she had a cerclage during that @ 14 weeks. No cerclage with any of her subsequent pregnancies. TKRN High risk due to h istory of labor, antepartum 03/05/2018 12/07/2018 Overview: 03/05/2018Delivered 1st child at 22 weeks. Cerclage placed at 14 weeks. She had PTL with her 3rd and was hospitalized at approximately 31 weeks for 48 hours in [place]. She was given tocolytics and steroids. Went on to deliver at term. She denies PTL with her 2nd and 4th pregnancies. Patient denies any bleeding, cramping, or pain this . TKRN History of hemorrhage, currently preg nant 03/05/2018 12/07/2018 Overview: 03/05/2018Patient had mild hemorrhage after delivery of her 3rd child. TKRN History of depression 03/05/2018 12/07/2018 Overview: 03/05/2018 Pt has a history of depression and anxiety diagnosed last year and treated by a psychiatrist at [facility]. She was only on medication 2-3 weeks . She didn't like the side effects. Believes she is doing well off medication. Denies any depression. Discussed increased risks of depression during and and importance of reporting the development or worsening of symptoms should they occur.Pt denies ever having any suicidal thoughts or tendencies or thoughts of hurting others. TKRN Marijuana use 03/05/2018 12/07/2018 Overview: April 08, 2018 + tox screen first trimester for THC. Becky Miller MD 03/05/2018Patient admits to marijuana use as recent as 1 week ago. Denies any other drug use. Discussed that we may do random drug screens in and when she presents to L&D. . Discussed risks of using drugs in . TKRN Patient request for diagnostic testing 8 03/16/2018 Overview: 03/05/2018 Desires nuchal ultrasound and carrier screening testing. TKRN Nausea 12/29/2017 03/16/2018 Overview: Added automatically from request for surgery [id number] Thyromegaly 06/07/2016 03/16/2018 Cyclical vomiting with nausea 06/07/2016 History of loss 07/18/2014 12/07/2018 Overview: History of loss at 22 weeks, cerclage had been placed due to shortening at 14 High-risk 07/18/2014 03/21/2015 Overview: Boy on us- [place] Nausea/vomiting in 07/18/2014 Dorsal wrist ganglion 11/13/2012 11/19/2012 Small for gestational age fetus affecting mother , antepartum 09/16/2011 11/19/2012 Overview: 09/16- Last growth us 36%ile Threatened labor 08/26/2011 013 Overview: August 29, 2011 pt transferred to [place], await detailed report, per MFM needs 2x/wk NST's, repeat growth u/s in 3 weeks -sm UTI (urinary tract infection) during 0 08/07/2011 11/19/2012 High-risk 07/22/2011 11/19/2012 Overview: Weekly NSTs- growth 12%ile, fu US on 09/19 History of 22 week delivery after cerclage placed at 14 weeks. Subsequent term after. No cerclage last or this Boy on US- [place] History of gonorrhea 07/22/2011 11/19/2012 Overview: OMI neg, repeat at 36 weeks Vulvar abscess 04/12/2011 06/24/2011 Chronic pelvic pain in female 10/19/2010 Frequent stools 10/19/2010 06/24/2011 SUPRF HIGH RISK NEC [V23.89] 0 03/05/2010 Abdominal pain, right upper quadrant 05/24/2009 06/24/2011 documented as of this encounter (statuses as of 10/04/2021) [facility] History of Past illness Narrative* Problem Noted Date Resolved Date Antepartum anemia complicating in firs t trimester 04/08/2018 12/07/2018 Overview: Anemia, add fe, check Fe levels. Becky Miller MD Positive urine drug screen 03/18/201804/08 Overview: 03/16/18 Positive cannabinoids. Rabia Romero APRN.GIG TENDER History of loss in prior , currently 03/05/2018 12/07/2018 Overview: March 16, 2018 Only on progesterone for one of her other 3 full term pregnancies. Progesterone not recommended at this time, check cervical lengths. Becky Miller MD 03/05/2018. She is with a history of Dr. Fan delivering her first child stillborn at 22w. She states she had a cerclage during that @ 14 weeks. No cerclage with any of her subsequent pregnancies. TKRN High risk due to h istory of labor, antepartum 03/05/2018 12/07/2018 Overview: 03/05/2018Delivered 1st child at 22 weeks. Cerclage placed at 14 weeks. She had PTL with her 3rd and was hospitalized at approximately 31 weeks for 48 hours in [place]. She was given tocolytics and steroids. Went on to deliver at term. She denies PTL with her 2nd and 4th pregnancies. Patient denies any bleeding, cramping, or pain this . TKRN History of hemorrhage, currently preg nant 03/05/2018 12/07/2018 Overview: 03/05/2018Patient had mild hemorrhage after delivery of her 3rd child. TKRN History of depression 03/05/2018 12/07/2018 Overview: 03/05/2018 Pt has a history of depression and anxiety diagnosed last year and treated by a psychiatrist at [facility]. She was only on medication 2-3 weeks . She didn't like the side effects. Believes she is doing well off medication. Denies any depression. Discussed increased risks of depression during and and importance of reporting the development or worsening of symptoms should they occur.Pt denies ever having any suicidal thoughts or tendencies or thoughts of hurting others. TKRN Marijuana use 03/05/2018 12/07/2018 Overview: April 08, 2018 + tox screen first trimester for THC. Becky Miller MD 03/05/2018Patient admits to marijuana use as recent as 1 week ago. Denies any other drug use. Discussed that we may do random drug screens in and when she presents to L&D. . Discussed risks of using drugs in . TKRN Patient request for diagnostic testing 8 03/16/2018 Overview: 03/05/2018 Desires nuchal ultrasound and carrier screening testing. TKRN Nausea 12/29/2017 03/16/2018 Overview: Added automatically from request for surgery [id number] Thyromegaly 06/07/2016 03/16/2018 Cyclical vomiting with nausea 06/07/2016 History of loss 07/18/2014 12/07/2018 Overview: History of loss at 22 weeks, cerclage had been placed due to shortening at 14 High-risk 07/18/2014 03/21/2015 Overview: Boy on us- [place] Nausea/vomiting in 07/18/2014 Dorsal wrist ganglion 11/13/2012 11/19/2012 Small for gestational age fetus affecting mother , antepartum 09/16/2011 11/19/2012 Overview: 09/16- Last growth us 36%ile Threatened labor 08/26/2011 013 Overview: August 29, 2011 pt transferred to [place], await detailed report, per MFM needs 2x/wk NST's, repeat growth u/s in 3 weeks -sm UTI (urinary tract infection) during 0 08/07/2011 11/19/2012 High-risk 07/22/2011 11/19/2012 Overview: Weekly NSTs- growth 12%ile, fu US on 09/19 History of 22 week delivery after cerclage placed at 14 weeks. Subsequent term after. No [facility]age last or [facility] History of gonorrhea 07/22/2011 11/19/2012 Overview: OMI neg, repeat at 36 weeks Vulvar abscess 04/12/2011 06/24/2011 Chronic pelvic pain in female 10/19/2010 Frequent stools 10/19/2010 06/24/2011 SUPRF HIGH RISK NEC [V23.89] 0 03/05/2010 Abdominal pain, right upper quadrant 05/24/2009 06/24/2011 documented as of this encounter (statuses as of 10/05/2021) [facility] History of Past illness Narrative* Problem Noted Date Resolved Date Antepartum anemia complicating in firs t trimester 04/08/2018 12/07/2018 Overview: Anemia, add fe, check Fe levels. Becky Miller MD Positive urine drug screen 03/18/201804/08 Overview: 03/16/18 Positive cannabinoids. Rabia Romero, PROP MAKER.GIG TENDER History of loss in prior , currently 03/05/2018 12/07/2018 Overview: March 16, 2018 Only on progesterone for one of her other 3 full term pregnancies. Progesterone not recommended at this time, check cervical lengths. Becky Miller MD 03/05/2018. She is with a history of Dr. Fan delivering her first child stillborn at 22w. She states she had a cerclage during that @ 14 weeks. No cerclage with any of her subsequent pregnancies. TKRN High risk due to h istory of labor, antepartum 03/05/2018 12/07/2018 Overview: 03/05/2018Delivered 1st child at 22 weeks. Cerclage placed at 14 weeks. She had PTL with her 3rd and was hospitalized at approximately 31 weeks for 48 hours in [place]. She was given tocolytics and steroids. Went on to deliver at term. She denies PTL with her 2nd and 4th pregnancies. Patient denies any bleeding, cramping, or pain this . TKRN History of hemorrhage, currently preg nant 03/05/2018 12/07/2018 Overview: 03/05/2018Patient had mild hemorrhage after delivery of her 3rd child. TKRN History of depression 03/05/2018 12/07/2018 Overview: 03/05/2018 Pt has a history of depression and anxiety diagnosed last year and treated by a psychiatrist at [facility]. She was only on medication 2-3 weeks . She didn't like the side effects. Believes she is doing well off medication. Denies any depression. Discussed increased risks of depression during and and importance of reporting the development or worsening of symptoms should they occur.Pt denies ever having any suicidal thoughts or tendencies or thoughts of hurting others. TKRN Marijuana use 03/05/2018 12/07/2018 Overview: April 08, 2018 + tox screen first trimester for THC. Becky Miller MD 03/05/2018Patient admits to marijuana use as recent as 1 week ago. Denies any other drug use. Discussed that we may do random drug screens in and when she presents to L&D. . Discussed risks of using drugs in . TKRN Patient request for diagnostic testing 8 03/16/2018 Overview: 03/05/2018 Desires nuchal ultrasound and carrier screening testing. TKRN Nausea 12/29/2017 03/16/2018 Overview: Added automatically from request for surgery [id number] Thyromegaly 06/07/2016 03/16/2018 Cyclical vomiting with nausea 06/07/2016 History of loss 07/18/2014 12/07/2018 Overview: History of loss at 22 weeks, cerclage had been placed due to shortening at 14 High-risk 07/18/2014 03/21/2015 Overview: Boy on - [place] Nausea/vomiting in 07/18/2014 Dorsal wrist ganglion 11/13/2012 11/19/2012 Small for gestational age fetus affecting mother , antepartum 09/16/2011 11/19/2012 Overview: 09/16- Last growth us 36%ile Threatened labor 08/26/2011 013 Overview: August 29, 2011 pt transferred to [place], await detailed report, per MFM needs 2x/wk NST's, repeat growth u/s in 3 weeks -sm UTI (urinary tract infection) during 0 08/07/2011 11/19/2012 High-risk 07/22/2011 11/19/2012 Overview: Weekly NSTs- growth 12%ile, fu US on 09/19 History of 22 week delivery after cerclage placed at 14 weeks. Subsequent term after. [facility]age last or [facility] History of gonorrhea 07/22/2011 11/19/2012 Overview: OMI neg, repeat at 36 weeks Vulvar abscess 04/12/2011 06/24/2011 Chronic pelvic pain in female 10/19/2010 Frequent stools 10/19/2010 06/24/2011 SUPRF HIGH RISK NEC [V23.89] 0 03/05/2010 Abdominal pain, right upper quadrant 05/24/2009 06/24/2011 documented as of this encounter (statuses as of 10/09/2021) [facility] History of Past illness Narrative* Problem Noted Date Resolved Date Antepartum anemia complicating in firs t trimester 04/08/2018 12/07/2018 Overview: Anemia, add fe, check Fe levels. Becky Miller MD Positive urine drug screen 03/18/201804/08 Overview: 03/16/18 Positive cannabinoids. Rabia Romero APRN.GIG TENDER History of loss in prior , currently 03/05/2018 12/07/2018 Overview: March 16, 2018 Only on progesterone for one of her other 3 full term pregnancies. Progesterone not recommended at this time, check cervical lengths. Becky Miller MD 03/05/2018. She is with a history of Dr. Fan delivering her first child stillborn at 22w. She states she had a cerclage during that @ 14 weeks. No cerclage with any of her subsequent pregnancies. TKRN High risk due to h istory of labor, antepartum 03/05/2018 12/07/2018 Overview: 03/05/2018Delivered 1st child at 22 weeks. Cerclage placed at 14 weeks. She had PTL with her 3rd and was hospitalized at approximately 31 weeks for 48 hours in [place]. She was given tocolytics and steroids. Went on to deliver at term. She denies PTL with her 2nd and 4th pregnancies. Patient denies any bleeding, cramping, or pain this . TKRN History of hemorrhage, currently preg nant 03/05/2018 12/07/2018 Overview: 03/05/2018Patient had mild hemorrhage after delivery of her 3rd child. TKRN History of depression 03/05/2018 12/07/2018 Overview: 03/05/2018 Pt has a history of depression and anxiety diagnosed last year and treated by a psychiatrist at [facility]. She was only on medication 2-3 weeks . She didn't like the side effects. Believes she is doing well off medication. Denies any depression. Discussed increased risks of depression during and and importance of reporting the development or worsening of symptoms should they occur.Pt denies ever having any suicidal thoughts or tendencies or thoughts of hurting others. TKRN Marijuana use 03/05/2018 12/07/2018 Overview: April 08, 2018 + tox screen first trimester for THC. Becky Miller MD 03/05/2018Patient admits to marijuana use as recent as 1 week ago. Denies any other drug use. Discussed that we may do random drug screens in and when she presents to L&D. . Discussed risks of using drugs in . TKRN Patient request for diagnostic testing 8 03/16/2018 Overview: 03/05/2018 Desires nuchal ultrasound and carrier screening testing. TKRN Nausea 12/29/2017 03/16/2018 Overview: Added automatically from request for surgery [id number] Thyromegaly 06/07/2016 03/16/2018 Cyclical vomiting with nausea 06/07/2016 History of loss 07/18/2014 12/07/2018 Overview: History of loss at 22 weeks, cerclage had been placed due to shortening at 14 High-risk 07/18/2014 03/21/2015 Overview: Boy on us- [place] Nausea/vomiting in 07/18/2014 Dorsal wrist ganglion 11/13/2012 11/19/2012 Small for gestational age fetus affecting mother , antepartum 09/16/2011 11/19/2012 Overview: 09/16- Last growth us 36%ile Threatened labor 08/26/2011 013 Overview: August 29, 2011 pt transferred to [place], await detailed report, per MFM needs 2x/wk NST's, repeat growth u/s in 3 weeks -sm UTI (urinary tract infection) during 0 08/07/2011 11/19/2012 High-risk 07/22/2011 11/19/2012 Overview: Weekly NSTs- growth 12%ile, fu US on 09/19 History of 22 week delivery after cerclage placed at 14 weeks. Subsequent term after. No cerclage last or this Boy on [place]- [place] History of gonorrhea 07/22/2011 11/19/2012 Overview: OMI neg, repeat at 36 weeks Vulvar abscess 04/12/2011 06/24/2011 Chronic pelvic pain in female 10/19/2010 Frequent stools 10/19/2010 06/24/2011 SUPRF HIGH RISK NEC [V23.89] 0 03/05/2010 Abdominal pain, right upper quadrant 05/24/2009 06/24/2011 documented as of this encounter (statuses as of 12/10/2021) [facility] History of Past illness Narrative* Problem Noted Date Resolved Date Antepartum anemia complicating in firs t trimester 04/08/2018 12/07/2018 Overview: Anemia, add fe, check Fe levels. Becky Miller MD Positive urine drug screen 03/18/201804/08 Overview: 03/16/18 Positive cannabinoids. Rabia Romero, PROP MAKER.GIG TENDER History of loss in prior , currently 03/05/2018 12/07/2018 Overview: March 16, 2018 Only on progesterone for one of her other 3 full term pregnancies. Progesterone not recommended at this time, check cervical lengths. Becky Miller MD 03/05/2018. She is with a history of Dr. Fan delivering her first child stillborn at 22w. She states she had a cerclage during that @ 14 weeks. No cerclage with any of her subsequent pregnancies. TKRN High risk due to h istory of labor, antepartum 03/05/2018 12/07/2018 Overview: 03/05/2018Delivered 1st child at 22 weeks. Cerclage placed at 14 weeks. She had PTL with her 3rd and was hospitalized at approximately 31 weeks for 48 hours in [place]. She was given tocolytics and steroids. Went on to deliver at term. She denies PTL with her 2nd and 4th pregnancies. Patient denies any bleeding, cramping, or pain this . TKRN History of hemorrhage, currently preg nant 03/05/2018 12/07/2018 Overview: 03/05/2018Patient had mild hemorrhage after delivery of her 3rd child. TKRN History of depression 03/05/2018 12/07/2018 Overview: 03/05/2018 Pt has a history of depression and anxiety diagnosed last year and treated by a psychiatrist at [facility]. She was only on medication 2-3 weeks . She didn't like the side effects. Believes she is doing well off medication. Denies any depression. Discussed increased risks of depression during and and importance of reporting the development or worsening of symptoms should they occur.Pt denies ever having any suicidal thoughts or tendencies or thoughts of hurting others. TKRN Marijuana use 03/05/2018 12/07/2018 Overview: April 08, 2018 + tox screen first trimester for THC. Becky Miller MD 03/05/2018Patient admits to marijuana use as recent as 1 week ago. Denies any other drug use. Discussed that we may do random drug screens in and when she presents to L&D. . Discussed risks of using drugs in . TKRN Patient request for diagnostic testing 8 03/16/2018 Overview: 03/05/2018 Desires nuchal ultrasound and carrier screening testing. TKRN Nausea 12/29/2017 03/16/2018 Overview: Added automatically from request for surgery [id number] Thyromegaly 06/07/2016 03/16/2018 Cyclical vomiting with nausea 06/07/2016 History of loss 07/18/2014 12/07/2018 Overview: History of loss at 22 weeks, cerclage had been placed due to shortening at 14 High-risk 07/18/2014 03/21/2015 Overview: Boy on us- [place] Nausea/vomiting in 07/18/2014 Dorsal wrist ganglion 11/13/2012 11/19/2012 Small for gestational age fetus affecting mother , antepartum 09/16/2011 11/19/2012 Overview: 09/16- Last growth us 36%ile Threatened labor 08/26/2011 013 Overview: August 29, 2011 pt transferred to [place], await detailed report, per MFM needs 2x/wk NST's, repeat growth u/s in 3 weeks -sm UTI (urinary tract infection) during 0 08/07/2011 11/19/2012 High-risk 07/22/2011 11/19/2012 Overview: Weekly NSTs- growth 12%ile, fu US on 09/19 History of 22 week delivery after cerclage placed at 14 weeks. Subsequent term after. No cerclage last or this Boy on US- [facility], [place] History of gonorrhea 07/22/2011 11/19/2012 Overview: OMI neg, repeat at 36 weeks Vulvar abscess 04/12/2011 06/24/2011 Chronic pelvic pain in female 10/19/2010 Frequent stools 10/19/2010 06/24/2011 SUPRF HIGH RISK NEC [V23.89] 0 03/05/2010 Abdominal pain, right upper quadrant 05/24/2009 06/24/2011 documented as of this encounter (statuses as of 12/25/2021) [facility] History of Past illness Narrative* Problem Noted Date Resolved Date Antepartum anemia complicating in firs t trimester 04/08/2018 12/07/2018 Overview: Anemia, add fe, check Fe levels. Becky Miller MD Positive urine drug screen 03/18/201804/08 Overview: 03/16/18 Positive cannabinoids. Rabia Romero APRN.GIG TENDER History of loss in prior , currently 03/05/2018 12/07/2018 Overview: March 16, 2018 Only on progesterone for one of her other 3 full term pregnancies. Progesterone not recommended at this time, check cervical lengths. Becky Miller MD 03/05/2018. She is with a history of Dr. Fan delivering her first child stillborn at 22w. She states she had a cerclage during that @ 14 weeks. No cerclage with any of her subsequent pregnancies. TKRN High risk due to h istory of labor, antepartum 03/05/2018 12/07/2018 Overview: 03/05/2018Delivered 1st child at 22 weeks. Cerclage placed at 14 weeks. She had PTL with her 3rd and was hospitalized at approximately 31 weeks for 48 hours in [place]. She was given tocolytics and steroids. Went on to deliver at term. She denies PTL with her 2nd and 4th pregnancies. Patient denies any bleeding, cramping, or pain this . TKRN History of hemorrhage, currently preg nant 03/05/2018 12/07/2018 Overview: 03/05/2018Patient had mild hemorrhage after delivery of her 3rd child. TKRN History of depression 03/05/2018 12/07/2018 Overview: 03/05/2018 Pt has a history of depression and anxiety diagnosed last year and treated by a psychiatrist at [facility]. She was only on medication 2-3 weeks . She didn't like the side effects. Believes she is doing well off medication. Denies any depression. Discussed increased risks of depression during and and importance of reporting the development or worsening of symptoms should they occur.Pt denies ever having any suicidal thoughts or tendencies or thoughts of hurting others. TKRN Marijuana use 03/05/2018 12/07/2018 Overview: April 08, 2018 + tox screen first trimester for THC. Becky Miller MD 03/05/2018Patient admits to marijuana use as recent as 1 week ago. Denies any other drug use. Discussed that we may do random drug screens in and when she presents to L&D. . Discussed risks of using drugs in . TKRN Patient request for diagnostic testing 8 03/16/2018 Overview: 03/05/2018 Desires nuchal ultrasound and carrier screening testing. TKRN Nausea 12/29/2017 03/16/2018 Overview: Added automatically from request for surgery [id number] Thyromegaly 06/07/2016 03/16/2018 Cyclical vomiting with nausea 06/07/2016 History of loss 07/18/2014 12/07/2018 Overview: History of loss at 22 weeks, cerclage had been placed due to shortening at 14 High-risk 07/18/2014 03/21/2015 Overview: Boy on us- [place] Nausea/vomiting in 07/18/2014 Dorsal wrist ganglion 11/13/2012 11/19/2012 Small for gestational age fetus affecting mother , antepartum 09/16/2011 11/19/2012 Overview: 09/16- Last growth us 36%ile Threatened labor 08/26/2011 013 Overview: August 29, 2011 pt transferred to [place], await detailed report, per MFM needs 2x/wk NST's, repeat growth u/s in 3 weeks -sm UTI (urinary tract infection) during 0 08/07/2011 11/19/2012 High-risk 07/22/2011 11/19/2012 Overview: Weekly NSTs- growth 12%ile, fu US on 09/19 History of 22 week delivery after cerclage placed at 14 weeks. Subsequent term after. No cerclage last or this Boy on US- [place] History of gonorrhea 07/22/2011 11/19/2012 Overview: OMI neg, repeat at 36 weeks Vulvar abscess 04/12/2011 06/24/2011 Chronic pelvic pain in female 10/19/2010 Frequent stools 10/19/2010 06/24/2011 SUPRF HIGH RISK NEC [V23.89] 0 03/05/2010 Abdominal pain, right upper quadrant 05/24/2009 06/24/2011 documented as of this encounter (statuses as of 01/01/2022) [facility] History of Past illness Narrative* Problem Noted Date Resolved Date Antepartum anemia complicating in firs t trimester 04/08/2018 12/07/2018 Overview: Anemia, add fe, check Fe levels. Becky Miller MD Positive urine drug screen 03/18/201804/08 Overview: 03/16/18 Positive cannabinoids. Rabia Romero APRN.GIG TENDER History of loss in prior , currently 03/05/2018 12/07/2018 Overview: March 16, 2018 Only on progesterone for one of her other 3 full term pregnancies. Progesterone not recommended at this time, check cervical lengths. Becky Miller MD 03/05/2018. She is with a history of Dr. Fan delivering her first child stillborn at 22w. She states she had a cerclage during that @ 14 weeks. No cerclage with any of her subsequent pregnancies. TKRN High risk due to h istory of labor, antepartum 03/05/2018 12/07/2018 Overview: 03/05/2018Delivered 1st child at 22 weeks. Cerclage placed at 14 weeks. She had PTL with her 3rd and was hospitalized at approximately 31 weeks for 48 hours in [place]. She was given tocolytics and steroids. Went on to deliver at term. She denies PTL with her 2nd and 4th pregnancies. Patient denies any bleeding, cramping, or pain this . TKRN History of hemorrhage, currently preg nant 03/05/2018 12/07/2018 Overview: 03/05/2018Patient had mild hemorrhage after delivery of her 3rd child. TKRN History of depression 03/05/2018 12/07/2018 Overview: 03/05/2018 Pt has a history of depression and anxiety diagnosed last year and treated by a psychiatrist at [facility]. She was only on medication 2-3 weeks . She didn't like the side effects. Believes she is doing well off medication. Denies any depression. Discussed increased risks of depression during and and importance of reporting the development or worsening of symptoms should they occur.Pt denies ever having any suicidal thoughts or tendencies or thoughts of hurting others. TKRN Marijuana use 03/05/2018 12/07/2018 Overview: April 08, 2018 + tox screen first trimester for THC. Becky Miller MD 03/05/2018Patient admits to marijuana use as recent as 1 week ago. Denies any other drug use. Discussed that we may do random drug screens in and when she presents to L&D. . Discussed risks of using drugs in . TKRN Patient request for diagnostic testing 8 03/16/2018 Overview: 03/05/2018 Desires nuchal ultrasound and carrier screening testing. TKRN Nausea 12/29/2017 03/16/2018 Overview: Added automatically from request for surgery [id number] Thyromegaly 06/07/2016 03/16/2018 Cyclical vomiting with nausea 06/07/2016 History of loss 07/18/2014 12/07/2018 Overview: History of loss at 22 weeks, cerclage had been placed due to shortening at 14 High-risk 07/18/2014 03/21/2015 Overview: Boy on us- [place] Nausea/vomiting in 07/18/2014 Dorsal wrist ganglion 11/13/2012 11/19/2012 Small for gestational age fetus affecting mother , antepartum 09/16/2011 11/19/2012 Overview: 09/16- Last growth us 36%ile Threatened labor 08/26/2011 013 Overview: August 29, 2011 pt transferred to [place], await detailed report, per MFM needs 2x/wk NST's, repeat growth u/s in 3 weeks -sm UTI (urinary tract infection) during 0 08/07/2011 11/19/2012 High-risk 07/22/2011 11/19/2012 Overview: Weekly NSTs- growth 12%ile, fu US on 09/19 History of 22 week delivery after cerclage placed at 14 weeks. Subsequent term after. No cerclage last or this Boy on - [facility], [place] History of gonorrhea 07/22/2011 11/19/2012 Overview: OMI neg, repeat at 36 weeks Vulvar abscess 04/12/2011 06/24/2011 Chronic pelvic pain in female 10/19/2010 Frequent stools 10/19/2010 06/24/2011 SUPRF HIGH RISK NEC [V23.89] 0 03/05/2010 Abdominal pain, right upper quadrant 05/24/2009 06/24/2011 documented as of this encounter (statuses as of 02/15/2022) [facility] History of Past illness Narrative* Problem Noted Date Resolved Date Antepartum anemia complicating in firs t trimester 04/08/2018 12/07/2018 Overview: Anemia, add fe, check Fe levels. Becky Miller MD Positive urine drug screen 03/18/201804/08 Overview: 03/16/18 Positive cannabinoids. Rabia Romero APRN.GIG TENDER History of loss in prior , currently 03/05/2018 12/07/2018 Overview: March 16, 2018 Only on progesterone for one of her other 3 full term pregnancies. Progesterone not recommended at this time, check cervical lengths. Becky Miller MD 03/05/2018. She is with a history of Dr. Fan delivering her first child stillborn at 22w. She states she had a cerclage during that @ 14 weeks. No cerclage with any of her subsequent pregnancies. TKRN High risk due to h istory of labor, antepartum 03/05/2018 12/07/2018 Overview: 03/05/2018Delivered 1st child at 22 weeks. Cerclage placed at 14 weeks. She had PTL with her 3rd and was hospitalized at approximately 31 weeks for 48 hours in [place]. She was given tocolytics and steroids. Went on to deliver at term. She denies PTL with her 2nd and 4th pregnancies. Patient denies any bleeding, cramping, or pain this . TKRN History of hemorrhage, currently preg nant 03/05/2018 12/07/2018 Overview: 03/05/2018Patient had mild hemorrhage after delivery of her 3rd child. TKRN History of depression 03/05/2018 12/07/2018 Overview: 03/05/2018 Pt has a history of depression and anxiety diagnosed last year and treated by a psychiatrist at [facility]. She was only on medication 2-3 weeks . She didn't like the side effects. Believes she is doing well off medication. Denies any depression. Discussed increased risks of depression during and and importance of reporting the development or worsening of symptoms should they occur.Pt denies ever having any suicidal thoughts or tendencies or thoughts of hurting others. TKRN Marijuana use 03/05/2018 12/07/2018 Overview: April 08, 2018 + tox screen first trimester for THC. Becky Miller MD 03/05/2018Patient admits to marijuana use as recent as 1 week ago. Denies any other drug use. Discussed that we may do random drug screens in and when she presents to L&D. . Discussed risks of using drugs in . TKRN Patient request for diagnostic testing 8 03/16/2018 Overview: 03/05/2018 Desires nuchal ultrasound and carrier screening testing. TKRN Nausea 12/29/2017 03/16/2018 Overview: Added automatically from request for surgery [id number] Thyromegaly 06/07/2016 03/16/2018 Cyclical vomiting with nausea 06/07/2016 History of loss 07/18/2014 12/07/2018 Overview: History of loss at 22 weeks, cerclage had been placed due to shortening at 14 High-risk 07/18/2014 03/21/2015 Overview: Boy on us- [place] Nausea/vomiting in 07/18/2014 Dorsal wrist ganglion 11/13/2012 11/19/2012 Small for gestational age fetus affecting mother , antepartum 09/16/2011 11/19/2012 Overview: 09/16- Last growth us 36%ile Threatened labor 08/26/2011 013 Overview: August 29, 2011 pt transferred to [place], await detailed report, per MFM needs 2x/wk NST's, repeat growth u/s in 3 weeks -sm UTI (urinary tract infection) during 0 08/07/2011 11/19/2012 High-risk 07/22/2011 11/19/2012 Overview: Weekly NSTs- growth 12%ile, fu US on 09/19 History of 22 week delivery after cerclage placed at 14 weeks. Subsequent term after. No cerclage last or this Boy on [place]- [place] History of gonorrhea 07/22/2011 11/19/2012 Overview: OMI neg, repeat at 36 weeks Vulvar abscess 04/12/2011 06/24/2011 Chronic pelvic pain in female 10/19/2010 Frequent stools 10/19/2010 06/24/2011 SUPRF HIGH RISK NEC [V23.89] 0 03/05/2010 Abdominal pain, right upper quadrant 05/24/2009 06/24/2011 documented as of this encounter (statuses as of 05/30/2022) [facility] History of Past illness Narrative* Problem Noted Date Resolved Date Antepartum anemia complicating in firs t trimester 04/08/2018 12/07/2018 Overview: Anemia, add fe, check Fe levels. Becky Miller MD Positive urine drug screen 03/18/201804/08 Overview: 03/16/18 Positive cannabinoids. Rabia Romero APRN.GIG TENDER History of loss in prior , currently 03/05/2018 12/07/2018 Overview: March 16, 2018 Only on progesterone for one of her other 3 full term pregnancies. Progesterone not recommended at this time, check cervical lengths. Becky Miller MD 03/05/2018. She is with a history of Dr. Fan delivering her first child stillborn at 22w. She states she had a cerclage during that @ 14 weeks. No cerclage with any of her subsequent pregnancies. TKRN High risk due to h istory of labor, antepartum 03/05/2018 12/07/2018 Overview: 03/05/2018Delivered 1st child at 22 weeks. Cerclage placed at 14 weeks. She had PTL with her 3rd and was hospitalized at approximately 31 weeks for 48 hours in [place]. She was given tocolytics and steroids. Went on to deliver at term. She denies PTL with her 2nd and 4th pregnancies. Patient denies any bleeding, cramping, or pain this . TKRN History of hemorrhage, currently preg nant 03/05/2018 12/07/2018 Overview: 03/05/2018Patient had mild hemorrhage after delivery of her 3rd child. TKRN History of depression 03/05/2018 12/07/2018 Overview: 03/05/2018 Pt has a history of depression and anxiety diagnosed last year and treated by a psychiatrist at [facility]. She was only on medication 2-3 weeks . She didn't like the side effects. Believes she is doing well off medication. Denies any depression. Discussed increased risks of depression during and and importance of reporting the development or worsening of symptoms should they occur.Pt denies ever having any suicidal thoughts or tendencies or thoughts of hurting others. TKRN Marijuana use 03/05/2018 12/07/2018 Overview: April 08, 2018 + tox screen first trimester for THC. Becky Miller MD 03/05/2018Patient admits to marijuana use as recent as 1 week ago. Denies any other drug use. Discussed that we may do random drug screens in and when she presents to L&D. . Discussed risks of using drugs in . TKRN Patient request for diagnostic testing 8 03/16/2018 Overview: 03/05/2018 Desires nuchal ultrasound and carrier screening testing. TKRN Nausea 12/29/2017 03/16/2018 Overview: Added automatically from request for surgery [id number] Thyromegaly 06/07/2016 03/16/2018 Cyclical vomiting with nausea 06/07/2016 History of loss 07/18/2014 12/07/2018 Overview: History of loss at 22 weeks, cerclage had been placed due to shortening at 14 High-risk 07/18/2014 03/21/2015 Overview: Boy on us- [place] Nausea/vomiting in 07/18/2014 Dorsal wrist ganglion 11/13/2012 11/19/2012 Small for gestational age fetus affecting mother , antepartum 09/16/2011 11/19/2012 Overview: 09/16- Last growth us 36%ile Threatened labor 08/26/2011 013 Overview: August 29, 2011 pt transferred to [place], await detailed report, per MFM needs 2x/wk NST's, repeat growth u/s in 3 weeks -sm UTI (urinary tract infection) during 0 08/07/2011 11/19/2012 High-risk 07/22/2011 11/19/2012 Overview: Weekly NSTs- growth 12%ile, fu US on 09/19 History of 22 week delivery after cerclage placed at 14 weeks. Subsequent term after. No cerclage last or this Boy on US- [facility], [place] History of gonorrhea 07/22/2011 11/19/2012 Overview: OMI neg, repeat at 36 weeks Vulvar abscess 04/12/2011 06/24/2011 Chronic pelvic pain in female 10/19/2010 Frequent stools 10/19/2010 06/24/2011 SUPRF HIGH RISK NEC [V23.89] 0 03/05/2010 Abdominal pain, right upper quadrant 05/24/2009 06/24/2011 documented as of this encounter (statuses as of 06/15/2022) [facility] History of Past illness Narrative* Problem Noted Date Resolved Date Antepartum anemia complicating in firs t trimester 04/08/2018 12/07/2018 Overview: Anemia, add fe, check Fe levels. Becky Miller MD Positive urine drug screen 03/18/201804/08 Overview: 03/16/18 Positive cannabinoids. Rabia Romero, PROP MAKER.GIG TENDER History of loss in prior , currently 03/05/2018 12/07/2018 Overview: March 16, 2018 Only on progesterone for one of her other 3 full term pregnancies. Progesterone not recommended at this time, check cervical lengths. Becky Miller MD 03/05/2018. She is with a history of Dr. Fan delivering her first child stillborn at 22w. She states she had a cerclage during that @ 14 weeks. No cerclage with any of her subsequent pregnancies. TKRN High risk due to h istory of labor, antepartum 03/05/2018 12/07/2018 Overview: 12/13/2018Delivered 1st child at 22 weeks. Cerclage placed at 14 weeks. She had PTL with her 3rd and was hospitalized at approximately 31 weeks for 48 hours in [place]. She was given tocolytics and steroids. Went on to deliver at term. She denies PTL with her 2nd and 4th pregnancies. Patient denies any bleeding, cramping, or pain this . TKRN History of hemorrhage, currently preg nant 03/05/2018 12/07/2018 Overview: 03/05/2018Patient had mild hemorrhage after delivery of her 3rd child. TKRN History of depression 03/05/2018 12/07/2018 Overview: 03/05/2018 Pt has a history of depression and anxiety diagnosed last year and treated by a psychiatrist at [facility]. She was only on medication 2-3 weeks . She didn't like the side effects. Believes she is doing well off medication. Denies any depression. Discussed increased risks of depression during and and importance of reporting the development or worsening of symptoms should they occur.Pt denies ever having any suicidal thoughts or tendencies or thoughts of hurting others. TKRN Marijuana use 03/05/2018 12/07/2018 Overview: April 08, 2018 + tox screen first trimester for THC. Becky Miller MD 03/05/2018Patient admits to marijuana use as recent as 1 week ago. Denies any other drug use. Discussed that we may do random drug screens in and when she presents to L&D. . Discussed risks of using drugs in . TKRN Patient request for diagnostic testing 8 03/16/2018 Overview: 03/05/2018 Desires nuchal ultrasound and carrier screening testing. TKRN Nausea 12/29/2017 03/16/2018 Overview: Added automatically from request for surgery [id number] Thyromegaly 06/07/2016 03/16/2018 Cyclical vomiting with nausea 06/07/2016 History of loss 07/18/2014 12/07/2018 Overview: History of loss at 22 weeks, cerclage had been placed due to shortening at 14 High-risk 07/18/2014 03/21/2015 Overview: Boy on - [place] Nausea/vomiting in 07/18/2014 Dorsal wrist ganglion 11/13/2012 11/19/2012 Small for gestational age fetus affecting mother , antepartum 09/16/2011 11/19/2012 Overview: 09/16- Last growth us 36%ile Threatened labor 08/26/2011 013 Overview: August 29, 2011 pt transferred to [place], await detailed report, per MFM needs 2x/wk NST's, repeat growth u/s in 3 weeks -sm UTI (urinary tract infection) during 0 08/07/2011 11/19/2012 High-risk 07/22/2011 11/19/2012 Overview: Weekly NSTs- growth 12%ile, fu US on 09/19 History of 22 week delivery after cerclage placed at 14 weeks. Subsequent term after. No cerclage last or this Boy on - [facility] History of gonorrhea 07/22/2011 11/19/2012 Overview: OMI neg, repeat at 36 weeks Vulvar abscess 04/12/2011 06/24/2011 Chronic pelvic pain in female 10/19/2010 Frequent stools 10/19/2010 06/24/2011 SUPRF HIGH RISK NEC [V23.89] 0 03/05/2010 Abdominal pain, right upper quadrant 05/24/2009 06/24/2011 documented as of this encounter (statuses as of 06/16/2022) [facility]-16-2019 History of Past illness Narrative* Problem Noted Date Resolved Date Antepartum anemia complicating in firs t trimester 04/08/2018 12/07/2018 Overview: Anemia, add fe, check Fe levels. Becky Miller MD Positive urine drug screen 03/18/201804/08 Overview: 03/16/18 Positive cannabinoids. Rabia Romero APRN.GIG TENDER History of loss in prior , currently 03/05/2018 12/07/2018 Overview: March 16, 2018 Only on progesterone for one of her other 3 full term pregnancies. Progesterone not recommended at this time, check cervical lengths. Becky Miller MD 03/05/2018. She is with a history of Dr. Fan delivering her first child stillborn at 22w. She states she had a cerclage during that @ 14 weeks. No cerclage with any of her subsequent pregnancies. TKRN High risk due to h istory of labor, antepartum 03/05/2018 12/07/2018 Overview: 03/05/2018Delivered 1st child at 22 weeks. Cerclage placed at 14 weeks. She had PTL with her 3rd and was hospitalized at approximately 31 weeks for 48 hours in [place]. She was given tocolytics and steroids. Went on to deliver at term. She denies PTL with her 2nd and 4th pregnancies. Patient denies any bleeding, cramping, or pain this . TKRN History of hemorrhage, currently preg nant 03/05/2018 12/07/2018 Overview: 03/05/2018Patient had mild hemorrhage after delivery of her 3rd child. TKRN History of depression 03/05/2018 12/07/2018 Overview: 03/05/2018 Pt has a history of depression and anxiety diagnosed last year and treated by a psychiatrist at [facility]. She was only on medication 2-3 weeks . She didn't like the side effects. Believes she is doing well off medication. Denies any depression. Discussed increased risks of depression during and and importance of reporting the development or worsening of symptoms should they occur.Pt denies ever having any suicidal thoughts or tendencies or thoughts of hurting others. TKRN Marijuana use 03/05/2018 12/07/2018 Overview: April 08, 2018 + tox screen first trimester for THC. Becky Miller MD 03/05/2018Patient admits to marijuana use as recent as 1 week ago. Denies any other drug use. Discussed that we may do random drug screens in and when she presents to L&D. . Discussed risks of using drugs in . TKRN Patient request for diagnostic testing 8 03/16/2018 Overview: 03/05/2018 Desires nuchal ultrasound and carrier screening testing. TKRN Nausea 12/29/2017 03/16/2018 Overview: Added automatically from request for surgery [id number] Thyromegaly 06/07/2016 03/16/2018 Cyclical vomiting with nausea 06/07/2016 History of loss 07/18/2014 12/07/2018 Overview: History of loss at 22 weeks, cerclage had been placed due to shortening at 14 High-risk 07/18/2014 03/21/2015 Overview: Boy on us- [place] Nausea/vomiting in 07/18/2014 Dorsal wrist ganglion 11/13/2012 11/19/2012 Small for gestational age fetus affecting mother , antepartum 09/16/2011 11/19/2012 Overview: 09/16- Last growth us 36%ile Threatened labor 08/26/2011 013 Overview: August 29, 2011 pt transferred to [place], await detailed report, per [facility] needs 2x/wk NST's, repeat growth u/s in 3 weeks -sm UTI (urinary tract infection) during 0 08/07/2011 11/19/2012 High-risk 07/22/2011 11/19/2012 Overview: Weekly NSTs- growth 12%ile, fu US on 09/19 History of 22 week delivery after cerclage placed at 14 weeks. Subsequent term after. No cerclage last or this Boy on [place]- [place] History of gonorrhea 07/22/2011 11/19/2012 Overview: OMI neg, repeat at 36 weeks Vulvar abscess 04/12/2011 06/24/2011 Chronic pelvic pain in female 10/19/2010 Frequent stools 10/19/2010 06/24/2011 SUPRF HIGH RISK NEC [V23.89] 0 03/05/2010 Abdominal pain, right upper quadrant 05/24/2009 06/24/2011 documented as of this encounter (statuses as of 06/26/2022) [facility] History of Past illness Narrative* Problem Noted Date Diagnosed Date Resolved Date Antepartum anemia complicati ng in first trimester 04/08/2018 12/07/2018 Overview: Anemia, add fe, check Fe levels. Becky Miller MD Positive urine drug screen 03/18/2018 0 04/08/2018 Overview: 03/16/18 Positive cannabinoids. Rabia Romero, PROP MAKER.GIG TENDER History of loss in prior , currently 03/05/2018 12/07/2018 Overview: March 16, 2018 Only on progesterone for one of her other 3 full term pregnancies. Progesterone not recommended at this time, check cervical lengths. Becky Miller MD 03/05/2018. She is with a history of Dr. Fan delivering her first child stillborn at 22w. She states she had a cerclage during that @ 14 weeks. No cerclage with any of her subsequent pregnancies. TKRN High risk due to h istory of labor, antepartum 03/05/2018 12/07/2018 Overview: 03/05/2018Delivered 1st child at 22 weeks. Cerclage placed at 14 weeks. She had PTL with her 3rd and was hospitalized at approximately 31 weeks for 48 hours in [place]. She was given tocolytics and steroids. Went on to deliver at term. She denies PTL with her 2nd and 4th pregnancies. Patient denies any bleeding, cramping, or pain this . TKRN History of hemorr shanon, currently 03/05/2018 12/07/2018 Overview: 03/05/2018Patient had mild hemorrhage after delivery of her 3rd child. TKRN History of depression 03/05/20182018 Overview: 03/05/2018 Pt has a history of depression and anxiety diagnosed last year and treated by a psychiatrist at [facility]. She was only on medication 2-3 weeks . She didn't like the side effects. Believes she is doing well off medication. Denies any depression. Discussed increased risks of depression during and and importance of reporting the development or worsening of symptoms should they occur.Pt denies ever having any suicidal thoughts or tendencies or thoughts of hurting others. TKRN Marijuana use 03/05/2018 12/07/2018 Overview: April 08, 2018 + tox screen first trimester for THC. Becky Miller MD 03/05/2018Patient admits to marijuana use as recent as 1 week ago. Denies any other drug use. Discussed that we may do random drug screens in and when she presents to L&D. . Discussed risks of using drugs in . TKRN Patient request for diagnostic testing 03/05/2018 03/16/2018 Overview: 03/05/2018 Desires nuchal ultrasound and carrier screening testing. TKRN Nausea 12/29/2017 03/16/2018 Overview: Added automatically from request for surgery [id number] Thyromegaly 06/07/2016 03/16/2018 Cyclical vomiting with nausea 06/07/2016 03/16/2018 History of loss 07/18/20142018 Overview: History of loss at 22 weeks, cerclage had been placed due to shortening at 14 High-risk 07/18/2014 03/21/20 15 Overview: Boy on us- [place] Nausea/vomiting in 07/18/2014 03/21/2015 Dorsal wrist ganglion 11/13/20122012 Small for gestational age fe tus affecting mother, antepartum 09/16/2011 11/19/2012 Overview: 09/16- Last growth us 36%ile Threatened labor 08/26/2011 Overview: August 29, 2011 pt transferred to [place], [facility] detailed report, per [facility] needs 2x/wk NST's, repeat growth u/s in 3 weeks -sm UTI (urinary tract infection ) during 08/07/2011 11/19/2012 High-risk 07/22/2011 11/20/19 13 Overview: Weekly NSTs- growth 12%ile, fu US on 09/19 History of 22 week delivery after cerclage placed at 14 weeks. Subsequent term after. No cerclage last or this Boy on - [facility] [place] History of gonorrhea 07/22/2011 013 Overview: OMI neg, repeat at 36 weeks Vulvar abscess 04/12/2011 06/24/2011 Chronic pelvic pain in female 10/19/2010 06/24/2011 Frequent stools 10/19/2010 06/24/2011 SUPRF HIGH RISK NEC [V23.89] 11/02/2009 03/05/2010 Abdominal pain, right upper quadrant 05/24/2009 06/24/2011 documented as of this encounter (statuses as of 10/24/2022) [facility] History of Past illness Narrative* Problem Noted Date Diagnosed Date Resolved Date Antepartum anemia complicati ng in first trimester 04/08/2018 12/07/2018 Overview: Anemia, add fe, check Fe levels. Becky Miller MD Positive urine drug screen 03/18/2018 0 04/08/2018 Overview: 03/16/18 Positive cannabinoids. Rabia Romero APRN.GIG TENDER History of loss in prior , currently 03/05/2018 12/07/2018 Overview: March 16, 2018 Only on progesterone for one of her other 3 full term pregnancies. Progesterone not recommended at this time, check cervical lengths. Becky Miller MD 03/05/2018. She is with a history of Dr. Fan delivering her first child stillborn at 22w. She states she had a cerclage during that @ 14 weeks. No cerclage with any of her subsequent pregnancies. TKRN High risk due to h istory of labor, antepartum 03/05/2018 12/07/2018 Overview: 03/05/2018Delivered 1st child at 22 weeks. Cerclage placed at 14 weeks. She had PTL with her 3rd and was hospitalized at approximately 31 weeks for 48 hours in [place]. She was given tocolytics and steroids. Went on to deliver at term. She denies PTL with her 2nd and 4th pregnancies. Patient denies any bleeding, cramping, or pain this . TKRN History of hemorr shanon, currently 03/05/2018 12/07/2018 Overview: 03/05/2018Patient had mild hemorrhage after delivery of her 3rd child. TKRN History of depression 03/05/20182018 Overview: 03/05/2018 Pt has a history of depression and anxiety diagnosed last year and treated by a psychiatrist at [facility]. She was only on medication 2-3 weeks . She didn't like the side effects. Believes she is doing well off medication. Denies any depression. Discussed increased risks of depression during and and importance of reporting the development or worsening of symptoms should they occur.Pt denies ever having any suicidal thoughts or tendencies or thoughts of hurting others. TKRN Marijuana use 03/05/2018 12/07/2018 Overview: April 08, 2018 + tox screen first trimester for THC. Becky Miller MD 03/05/2018Patient admits to marijuana use as recent as 1 week ago. Denies any other drug use. Discussed that we may do random drug screens in and when she presents to L&D. . Discussed risks of using drugs in . TKRN Patient request for diagnostic testing 03/05/2018 03/16/2018 Overview: 03/05/2018 Desires nuchal ultrasound and carrier screening testing. TKRN Nausea 12/29/2017 03/16/2018 Overview: Added automatically from request for surgery [id number] Thyromegaly 06/07/2016 03/16/2018 Cyclical vomiting with nausea 06/07/2016 03/16/2018 History of loss 07/18/20142018 Overview: History of loss at 22 weeks, cerclage had been placed due to shortening at 14 High-risk 07/18/2014 03/21/20 15 Overview: Boy on us- [place] Nausea/vomiting in 07/18/2014 03/21/2015 Dorsal wrist ganglion 11/13/20122012 Small for gestational age fe tus affecting mother, antepartum 09/16/2011 11/19/2012 Overview: 09/16- Last growth us 36%ile Threatened labor 08/26/2011 Overview: August 29, 2011 pt transferred to [place], await detailed report, per M needs 2x/wk NST's, repeat growth u/s in 3 weeks -sm UTI (urinary tract infection ) during 08/07/2011 11/19/2012 High-risk 07/22/2011 11/20/19 13 Overview: Weekly NSTs- growth 12%ile, fu US on 09/19 History of 22 week delivery after cerclage placed at 14 weeks. Subsequent term after. No cerclage last or this Boy on [place]- [place] History of gonorrhea 07/22/2011 013 Overview: OMI neg, repeat at 36 weeks Vulvar abscess 04/12/2011 06/24/2011 Chronic pelvic pain in female 10/19/2010 06/24/2011 Frequent stools 10/19/2010 06/24/2011 SUPRF HIGH RISK NEC [V23.89] 11/02/2009 03/05/2010 Abdominal pain, right upper quadrant 05/24/2009 06/24/2011 documented as of this encounter (statuses as of 11/12/2022) [facility] History of Past illness Narrative* Problem Noted Date Diagnosed Date Resolved Date Antepartum anemia complicati ng in first trimester 04/08/2018 12/07/2018 Overview: Anemia, add fe, check Fe levels. Becky Miller MD Positive urine drug screen 03/18/2018 0 04/08/2018 Overview: 03/16/18 Positive cannabinoids. Rabia Romero APRN.GIG TENDER History of loss in prior , currently 03/05/2018 12/07/2018 Overview: March 16, 2018 Only on progesterone for one of her other 3 full term pregnancies. Progesterone not recommended at this time, check cervical lengths. Becky Miller MD 03/05/2018. She is with a history of Dr. Fan delivering her first child stillborn at 22w. She states she had a cerclage during that @ 14 weeks. No cerclage with any of her subsequent pregnancies. TKRN High risk due to h istory of labor, antepartum 03/05/2018 12/07/2018 Overview: 03/05/2018Delivered 1st child at 22 weeks. Cerclage placed at 14 weeks. She had PTL with her 3rd and was hospitalized at approximately 31 weeks for 48 hours in [place]. She was given tocolytics and steroids. Went on to deliver at term. She denies PTL with her 2nd and 4th pregnancies. Patient denies any bleeding, cramping, or pain this . TKRN History of hemorr shanon, currently 03/05/2018 12/07/2018 Overview: 03/05/2018Patient had mild hemorrhage after delivery of her 3rd child. TKRN History of depression 03/05/20182018 Overview: 03/05/2018 Pt has a history of depression and anxiety diagnosed last year and treated by a psychiatrist at [facility]. She was only on medication 2-3 weeks . She didn't like the side effects. Believes she is doing well off medication. Denies any depression. Discussed increased risks of depression during and and importance of reporting the development or worsening of symptoms should they occur.Pt denies ever having any suicidal thoughts or tendencies or thoughts of hurting others. TKRN Marijuana use 03/05/2018 12/07/2018 Overview: April 08, 2018 + tox screen first trimester for THC. Becky Miller MD 03/05/2018Patient admits to marijuana use as recent as 1 week ago. Denies any other drug use. Discussed that we may do random drug screens in and when she presents to L&D. . Discussed risks of using drugs in . TKRN Patient request for diagnostic testing 03/05/2018 03/16/2018 Overview: 03/05/2018 Desires nuchal ultrasound and carrier screening testing. TKRN Nausea 12/29/2017 03/16/2018 Overview: Added automatically from request for surgery [id number] Thyromegaly 06/07/2016 03/16/2018 Cyclical vomiting with nausea 06/07/2016 03/16/2018 History of loss 07/18/20142018 Overview: History of loss at 22 weeks, cerclage had been placed due to shortening at 14 High-risk 07/18/2014 03/21/20 15 Overview: Boy on us- [place] Nausea/vomiting in 07/18/2014 03/21/2015 Dorsal wrist ganglion 11/13/20122012 Small for gestational age fe tus affecting mother, antepartum 09/16/2011 11/19/2012 Overview: 6/26- Last growth us 36%ile Threatened labor 08/26/2011 Overview: August 29, 2011 pt transferred to [place], await detailed report, per M[facility] needs 2x/wk NST's, repeat growth u/s in 3 weeks -sm UTI (urinary tract infection ) during 08/07/2011 11/19/2012 High-risk 07/22/2011 11/20/19 13 Overview: Weekly NSTs- growth 12%ile, fu US on 09/19 History of 22 week delivery after cerclage placed at 14 weeks. Subsequent term after. No cerclage last or this Boy on US- [facility], [place] History of gonorrhea 07/22/2011 013 Overview: OMI neg, repeat at 36 weeks Vulvar abscess 04/12/2011 06/24/2011 Chronic pelvic pain in female 10/19/2010 06/24/2011 Frequent stools 10/19/2010 06/24/2011 SUPRF HIGH RISK NEC [V23.89] 11/02/2009 03/05/2010 Abdominal pain, right upper quadrant 05/24/2009 06/24/2011 documented as of this encounter (statuses as of 11/19/2022) [facility] History of Past illness Narrative* Problem Noted Date Diagnosed Date Resolved Date Antepartum anemia complicati ng in first trimester 04/08/2018 12/07/2018 Overview: Anemia, add fe, check Fe levels. Becky Miller MD Positive urine drug screen 03/18/2018 0 04/08/2018 Overview: 03/16/18 Positive cannabinoids. Rabia Romero APRN.GIG TENDER History of loss in prior , currently 03/05/2018 12/07/2018 Overview: March 16, 2018 Only on progesterone for one of her other 3 full term pregnancies. Progesterone not recommended at this time, check cervical lengths. Becky Miller MD 03/05/2018. She is with a history of Dr. Fan delivering her first child stillborn at 22w. She states she had a cerclage during that @ 14 weeks. No cerclage with any of her subsequent pregnancies. TKRN High risk due to h istory of labor, antepartum 03/05/2018 12/07/2018 Overview: 03/05/2018Delivered 1st child at 22 weeks. Cerclage placed at 14 weeks. She had PTL with her 3rd and was hospitalized at approximately 31 weeks for 48 hours in [place]. She was given tocolytics and steroids. Went on to deliver at term. She denies PTL with her 2nd and 4th pregnancies. Patient denies any bleeding, cramping, or pain this . TKRN History of hemorr shanon, currently 03/05/2018 12/07/2018 Overview: 03/05/2018Patient had mild hemorrhage after delivery of her 3rd child. TKRN History of depression 03/05/20182018 Overview: 03/05/2018 Pt has a history of depression and anxiety diagnosed last year and treated by a psychiatrist at [facility]. She was only on medication 2-3 weeks . She didn't like the side effects. Believes she is doing well off medication. Denies any depression. Discussed increased risks of depression during and and importance of reporting the development or worsening of symptoms should they occur.Pt denies ever having any suicidal thoughts or tendencies or thoughts of hurting others. TKRN Marijuana use 03/05/2018 12/07/2018 Overview: April 08, 2018 + tox screen first trimester for THC. Becky Miller MD 03/05/2018Patient admits to marijuana use as recent as 1 week ago. Denies any other drug use. Discussed that we may do random drug screens in and when she presents to L&D. . Discussed risks of using drugs in . TKRN Patient request for diagnostic testing 03/05/2018 03/16/2018 Overview: 03/05/2018 Desires nuchal ultrasound and carrier screening testing. TKRN Nausea 12/29/2017 03/16/2018 Overview: Added automatically from request for surgery [id number] Thyromegaly 06/07/2016 03/16/2018 Cyclical vomiting with nausea 06/07/2016 03/16/2018 History of loss 07/18/20142018 Overview: History of loss at 22 weeks, cerclage had been placed due to shortening at 14 High-risk 07/18/2014 03/21/20 15 Overview: Boy on us- [place] Nausea/vomiting in 07/18/2014 03/21/2015 Dorsal wrist ganglion 11/13/20122012 Small for gestational age fe tus affecting mother, antepartum 09/16/2011 11/19/2012 Overview: 09/16- Last growth us 36%ile Threatened labor 08/26/2011 Overview: August 29, 2011 pt transferred to [place], await detailed report, per [facility] needs 2x/wk NST's, repeat growth u/s in 3 weeks -sm UTI (urinary tract infection ) during 08/07/2011 11/19/2012 High-risk 07/22/2011 11/20/19 13 Overview: Weekly NSTs- growth 12%ile, fu US on 09/19 History of 22 week delivery after cerclage placed at 14 weeks. Subsequent term after. No cerclage last or this Boy on - [place] History of gonorrhea 07/22/2011 013 Overview: OMI neg, repeat at 36 weeks Vulvar abscess 04/12/2011 06/24/2011 Chronic pelvic pain in female 10/19/2010 06/24/2011 Frequent stools 10/19/2010 06/24/2011 SUPRF HIGH RISK NEC [V23.89] 11/02/2009 03/05/2010 Abdominal pain, right upper quadrant 05/24/2009 06/24/2011 documented as of this encounter (statuses as of 11/20/2022) [facility] of Past illness Narrative* Problem Noted Date Diagnosed Date Resolved Date Antepartum anemia complicati ng in first trimester 04/08/2018 12/07/2018 Overview: Anemia, add fe, check Fe levels. Becky Miller MD Positive urine drug screen 03/18/2018 0 04/08/2018 Overview: 03/16/18 Positive cannabinoids. Rabia Romero APRN.GIG TENDER History of loss in prior , currently 03/05/2018 12/07/2018 Overview: March 16, 2018 Only on progesterone for one of her other 3 full term pregnancies. Progesterone not recommended at this time, check cervical lengths. Becky Miller MD 03/05/2018. She is with a history of Dr. Fan delivering her first child stillborn at 22w. She states she had a cerclage during that @ 14 weeks. No cerclage with any of her subsequent pregnancies. TKRN High risk due to h istory of labor, antepartum 03/05/2018 12/07/2018 Overview: 03/05/2018Delivered 1st child at 22 weeks. Cerclage placed at 14 weeks. She had PTL with her 3rd and was hospitalized at approximately 31 weeks for 48 hours in [place]. She was given tocolytics and steroids. Went on to deliver at term. She denies PTL with her 2nd and 4th pregnancies. Patient denies any bleeding, cramping, or pain this . TKRN History of hemorr shanon, currently 03/05/2018 12/07/2018 Overview: 03/05/2018Patient had mild hemorrhage after delivery of her 3rd child. TKRN History of depression 03/05/20182018 Overview: 03/05/2018 Pt has a history of depression and anxiety diagnosed last year and treated by a psychiatrist at [facility]. She was only on medication 2-3 weeks . She didn't like the side effects. Believes she is doing well off medication. Denies any depression. Discussed increased risks of depression during and and importance of reporting the development or worsening of symptoms should they occur.Pt denies ever having any suicidal thoughts or tendencies or thoughts of hurting others. TKRN Marijuana use 03/05/2018 12/07/2018 Overview: April 08, 2018 + tox screen first trimester for THC. Becky Miller MD 03/05/2018Patient admits to marijuana use as recent as 1 week ago. Denies any other drug use. Discussed that we may do random drug screens in and when she presents to L&D. . Discussed risks of using drugs in . TKRN Patient request for diagnostic testing 03/05/2018 03/16/2018 Overview: 03/05/2018 Desires nuchal ultrasound and carrier screening testing. TKRN Nausea 12/29/2017 03/16/2018 Overview: Added automatically from request for surgery [id number] Thyromegaly 06/07/2016 03/16/2018 Cyclical vomiting with nausea 06/07/2016 03/16/2018 History of loss 07/18/20142018 Overview: History of loss at 22 weeks, cerclage had been placed due to shortening at 14 High-risk 07/18/2014 03/21/20 15 Overview: Boy on us- [place] Nausea/vomiting in 07/18/2014 03/21/2015 Dorsal wrist ganglion 11/13/20122012 Small for gestational age fe tus affecting mother, antepartum 09/16/2011 11/19/2012 Overview: 09/16- Last growth us 36%ile Threatened labor 08/26/2011 Overview: August 29, 2011 pt transferred to [place], await detailed report, per [facility] needs 2x/wk NST's, repeat growth u/s in 3 weeks -sm UTI (urinary tract infection ) during 08/07/2011 11/19/2012 High-risk 07/22/2011 11/20/19 13 Overview: Weekly NSTs- growth 12%ile, fu US on 09/19 History of 22 week delivery after cerclage placed at 14 weeks. Subsequent term after. No cerclage last or [facility] History of gonorrhea 07/22/2011 013 Overview: OMI neg, repeat at 36 weeks Vulvar abscess 04/12/2011 06/24/2011 Chronic pelvic pain in female 10/19/2010 06/24/2011 Frequent stools 10/19/2010 06/24/2011 SUPRF HIGH RISK NEC [V23.89] 11/02/2009 03/05/2010 Abdominal pain, right upper quadrant 05/24/2009 06/24/2011 documented as of this encounter (statuses as of 01/26/2023) [facility] of Past illness Narrative* Problem Noted Date Diagnosed Date Resolved Date Antepartum anemia complicati ng in first trimester 04/08/2018 12/07/2018 Overview: Anemia, add fe, check Fe levels. Becky Miller MD Positive urine drug screen 03/18/2018 0 04/08/2018 Overview: 03/16/18 Positive cannabinoids. Rabia Romero, PROP MAKER.GIG TENDER History of loss in prior , currently 03/05/2018 12/07/2018 Overview: March 16, 2018 Only on progesterone for one of her other 3 full term pregnancies. Progesterone not recommended at this time, check cervical lengths. Becky Miller MD 03/05/2018. She is with a history of Dr. Fan delivering her first child stillborn at 22w. She states she had a cerclage during that @ 14 weeks. No cerclage with any of her subsequent pregnancies. TKRN High risk due to h istory of labor, antepartum 03/05/2018 12/07/2018 Overview: 03/05/2018Delivered 1st child at 22 weeks. Cerclage placed at 14 weeks. She had PTL with her 3rd and was hospitalized at approximately 31 weeks for 48 hours in [place]. She was given tocolytics and steroids. Went on to deliver at term. She denies PTL with her 2nd and 4th pregnancies. Patient denies any bleeding, cramping, or pain this . TKRN History of hemorr shanon, currently 03/05/2018 12/07/2018 Overview: 03/05/2018Patient had mild hemorrhage after delivery of her 3rd child. TKRN History of depression 03/05/20182018 Overview: 03/05/2018 Pt has a history of depression and anxiety diagnosed last year and treated by a psychiatrist at [facility]. She was only on medication 2-3 weeks . She didn't like the side effects. Believes she is doing well off medication. Denies any depression. Discussed increased risks of depression during and and importance of reporting the development or worsening of symptoms should they occur.Pt denies ever having any suicidal thoughts or tendencies or thoughts of hurting others. TKRN Marijuana use 03/05/2018 12/07/2018 Overview: April 08, 2018 + tox screen first trimester for THC. Becky Miller MD 03/05/2018Patient admits to marijuana use as recent as 1 week ago. Denies any other drug use. Discussed that we may do random drug screens in and when she presents to L&D. . Discussed risks of using drugs in . TKRN Patient request for diagnostic testing 03/05/2018 03/16/2018 Overview: 03/05/2018 Desires nuchal ultrasound and carrier screening testing. TKRN Nausea 12/29/2017 03/16/2018 Overview: Added automatically from request for surgery [id number] Thyromegaly 06/07/2016 03/16/2018 Cyclical vomiting with nausea 06/07/2016 03/16/2018 History of loss 07/18/20142018 Overview: History of loss at 22 weeks, cerclage had been placed due to shortening at 14 High-risk 07/18/2014 03/21/20 15 Overview: Boy on us- Ezbion Nausea/vomiting in 07/18/2014 03/21/2015 Dorsal wrist ganglion 11/13/20122012 Small for gestational age fe tus affecting mother, antepartum 09/16/2011 11/19/2012 Overview: 09/16- Last growth us 36%ile Threatened labor 08/26/2011 Overview: August 29, 2011 pt transferred to [place], await detailed report, per [facility] needs 2x/wk NST's, repeat growth u/s in 3 weeks -sm UTI (urinary tract infection ) during 08/07/2011 11/19/2012 High-risk 07/22/2011 11/20/19 13 Overview: Weekly NSTs- growth 12%ile, fu US on 09/19 History of 22 week delivery after cerclage placed at 14 weeks. Subsequent term after. No cerclage last or this Boy on - [facility] History of gonorrhea 07/22/2011 013 Overview: OMI neg, repeat at 36 weeks Vulvar abscess 04/12/2011 06/24/2011 Chronic pelvic pain in female 10/19/2010 06/24/2011 Frequent stools 10/19/2010 06/24/2011 SUPRF HIGH RISK NEC [V23.89] 11/02/2009 03/05/2010 Abdominal pain, right upper quadrant 05/24/2009 06/24/2011 documented as of this encounter (statuses as of 01/26/2023) [facility] History of Past illness Narrative* Problem Noted Date Diagnosed Date Resolved Date Antepartum anemia complicati ng in first trimester 04/08/2018 12/07/2018 Overview: Anemia, add fe, check Fe levels. Becky Miller MD Positive urine drug screen 03/18/2018 0 04/08/2018 Overview: 03/16/18 Positive cannabinoids. Rabia Romero APRN.GIG TENDER History of loss in prior , currently 03/05/2018 12/07/2018 Overview: March 16, 2018 Only on progesterone for one of her other 3 full term pregnancies. Progesterone not recommended at this time, check cervical lengths. Becky Miller MD 03/05/2018. She is with a history of Dr. Fan delivering her first child stillborn at 22w. She states she had a cerclage during that @ 14 weeks. No cerclage with any of her subsequent pregnancies. TKRN High risk due to h istory of labor, antepartum 03/05/2018 12/07/2018 Overview: 03/05/2018Delivered 1st child at 22 weeks. Cerclage placed at 14 weeks. She had PTL with her 3rd and was hospitalized at approximately 31 weeks for 48 hours in [place]. She was given tocolytics and steroids. Went on to deliver at term. She denies PTL with her 2nd and 4th pregnancies. Patient denies any bleeding, cramping, or pain this . TKRN History of hemorr shanon, currently 03/05/2018 12/07/2018 Overview: 03/05/2018Patient had mild hemorrhage after delivery of her 3rd child. TKRN History of depression 03/05/20182018 Overview: 03/05/2018 Pt has a history of depression and anxiety diagnosed last year and treated by a psychiatrist at [facility]. She was only on medication 2-3 weeks . She didn't like the side effects. Believes she is doing well off medication. Denies any depression. Discussed increased risks of depression during and and importance of reporting the development or worsening of symptoms should they occur.Pt denies ever having any suicidal thoughts or tendencies or thoughts of hurting others. TKRN Marijuana use 03/05/2018 12/07/2018 Overview: April 08, 2018 + tox screen first trimester for THC. Becky Miller MD 03/05/2018Patient admits to marijuana use as recent as 1 week ago. Denies any other drug use. Discussed that we may do random drug screens in and when she presents to L&D. . Discussed risks of using drugs in . TKRN Patient request for diagnostic testing 03/05/2018 03/16/2018 Overview: 03/05/2018 Desires nuchal ultrasound and carrier screening testing. TKRN Nausea 12/29/2017 03/16/2018 Overview: Added automatically from request for surgery [id number] Thyromegaly 06/07/2016 03/16/2018 Cyclical vomiting with nausea 06/07/2016 03/16/2018 History of loss 07/18/20142018 Overview: History of loss at 22 weeks, cerclage had been placed due to shortening at 14 High-risk 07/18/2014 03/21/20 15 Overview: Boy on us- Ezbion Nausea/vomiting in 07/18/2014 03/21/2015 Dorsal wrist ganglion 11/13/20122012 Small for gestational age fe tus affecting mother, antepartum 09/16/2011 11/19/2012 Overview: 09/16- Last growth us 36%ile Threatened labor 08/26/2011 Overview: August 29, 2011 pt transferred to [place], await detailed report, per [facility] needs 2x/wk NST's, repeat growth u/s in 3 weeks -sm UTI (urinary tract infection ) during 08/07/2011 11/19/2012 High-risk 07/22/2011 11/20/19 13 Overview: Weekly NSTs- growth 12%ile, fu US on 09/19 History of 22 week delivery after cerclage placed at 14 weeks. Subsequent term after. No cerclage last or this [facility] on [facility] History of gonorrhea 07/22/2011 013 Overview: OMI neg, repeat at 36 weeks Vulvar abscess 04/12/2011 06/24/2011 Chronic pelvic pain in female 10/19/2010 06/24/2011 Frequent stools 10/19/2010 06/24/2011 SUPRF HIGH RISK NEC [V23.89] 11/02/2009 03/05/2010 Abdominal pain, right upper quadrant 05/24/2009 06/24/2011 documented as of this encounter (statuses as of 05/09/2023) [facility] Encounter for gynecological examination with abnormal finding- Primary Routine gynecological examination Pelvic pain in female Unspecified symptom associated with female genital organs Deep dyspareunia Vaginal discharge Leukorrhea, not specified as infective Irritable bowel syndrome with both constipation and diarrhea [facility] Diagnosis BV (bacterial vaginosis)- Primary Vaginitis and vulvovaginitis, unspecified [facility] Diagnosis Pelvic pain in female- Primary Unspecified symptom associated with female genital organs [facility] Diagnosis Well adult exam- Primary Routine general medical examination at a health care facility Lightheaded Dizziness and giddiness Dizzy Dizziness and giddiness Neck pain on left side Cervicalgia Muscle spasm Spasm of muscle [facility] Diagnosis Encounter for removal and reinsertion of Nexplanon- Primary [facility] Diagnosis Encounter for removal and reinsertion of Nexplanon- Primary [facility] Diagnosis Wrist pain, acute, left- Primary [facility] Diagnosis Vaginal itching- Primary Pruritus of genital organs [facility] Diagnosis Encounter for gynecological examination with abnormal finding- Primary Routine gynecological examination Mastalgia Mastodynia Mass of left breast, unspecified quadrant [facility] Diagnosis Well adult exam- Primary Routine general medical examination at a health care facility Thyroid goiter Goiter, unspecified Muscle spasm Spasm of muscle Tightness in chest Other chest pain Goiter Goiter, unspecified Generalized abdominal pain Abdominal pain, generalized Pain of right hip Family history of thyroid disorder Family history of other endocrine and metabolic diseases Screening for thyroid disorder Screening for diabetes mellitus Screening for lipid disorders [facility] Diagnosis 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 [facility] [place] [facility] Diagnosis Need for vaccination- Primary Need for prophylactic vaccination and inoculation against unspecified single disease [facility] [place] [facility]* Diagnosis Mastalgia Mastodynia Mass of left breast, unspecified quadrant [facility] [place] [facility]* Diagnosis Thyroid goiter Goiter, unspecified documented in this encounter [facility] for referral (narrative)* Outpatient Procedure (Routine) - Authorized Specialty Diagnoses / Procedures Referred By Crow holland Referred To Contact [facility] Diagnoses Encounter for removal and reinsertion of Nexplanon Encounter for initial prescription of implantable subdermal contraceptive Procedures NEXPLANON INSERTION ETONOGESTREL IMPLANT SYSTEM INSERT DRUG IMPLANT DEVICE REMOVAL NON-BIODEGRADABLE DRUG DELIVERY IMPLANT Rabia Romero APRN.CNP [address] [place] [address] [place] [address] [place] [address] Referral ID Status Reason Start Date Expiration Date Visits Requested Visits Authorized [id number] Authorized Auto-Generat ed Referral 12/25/2021 03/23/2022 2 2 * Outpatient Procedure (Routine) - Closed Specialty Diagnoses / Procedures Referred By Crow holland Referred To Contact [facility] Diagnoses Encounter for removal and reinsertion of Nexplanon Procedures NEXPLANON REMOVAL REMOVAL NON-BIODEGRADABLE DRUG DELIVERY IMPLANT Rabia Romero APRN.CNP [address] [place] [address] [address] Referral ID Status Reason Start Date Expiration Date V isits Requested Visits Authorized [id number] Closed Auto-Generate d Referral 12/25/2021 12/24/2022 1 1 [facility] for referral (narrative)* Outpatient Procedure (Routine) - Pending Review Specialty Diagnoses / Procedures Referred By Crow holland Referred To Contact [facility] Diagnoses Encounter for removal and reinsertion of Nexplanon Procedures NEXPLANON INSERTION ETONOGESTREL IMPLANT SYSTEM INSERT DRUG IMPLANT DEVICE Rabia Romero APRN.GIG TENDER [address] [place] [address] [facility] [address] [place] [address] Referral ID Status Reason Start Date Expiration Date Visits Requested Visits Authorized [id number] Pending Review Auto-Generat ed Referral 01/01/2023 1 1 [facility] for referral (narrative)* Diagnostic Procedure Only (Routine) - Authorized Specialty Diagnoses / Procedures Referred By Crow holland Referred To Contact [facility] Diagnoses Mastalgia Mass of left breast, unspecified quadrant Procedures KATHARINE DIAGNOSTIC BILATERAL DIAGNOSTIC MAMMOGRAPHY COMPUTER-AIDED DETCJ BI Rabia Romero APRN.GIG TENDER [address] [place] [address] [facility] [address] [place] [address] Referral ID Status Reason Start Date Expiration Date Visits Requested Visits Authorized [id number] Authorized Auto-Generat ed Referral 10/24/2022 11/23/2023 1 1 * Diagnostic Procedure Only (Routine) - Authorized Specialty Diagnoses / Procedures Referred By Crow holland Referred To Contact [facility] Diagnoses Mastalgia Mass of left breast, unspecified quadrant Procedures US BREAST LTD LEFT US BREAST UNI REAL TIME WITH IMAGE LIMITED Rabia Romero APRN.GIG TENDER [address] [place] [address] [facility] [address] [place] [address] Referral ID Status Reason Start Date Expiration Date Visits Requested Visits Authorized [id number] Authorized Auto-Generat ed Referral 10/24/2022 11/23/2023 1 1 [facility] for referral (narrative)* Diagnostic Procedure Only (Routine) - Pending Review Specialty Diagnoses / Procedures Referred By Contac t Referred To Contact [facility] Diagnoses Muscle spasm Generalized abdominal pain Pain of right hip Procedures US ABDOMEN COMPLETE US ABDOMINAL REAL TIME W/IMAGE DOCUMENTATION Dayami Castaneda APRN.GIG TENDER [address] [place] [address] [place] [address] Referral ID Status Reason Start Date Expiration Date Visits Requested Visits Authorized [id number] Pending Review Auto-Generat ed Referral 11/08/2022 12/08/2023 1 1 * Diagnostic Procedure Only (Routine) - Pending Review Specialty Diagnoses / Procedures Referred By Contac t Referred To Contact [facility] Diagnoses Muscle spasm Pain of right hip Procedures XR HIP BILATERAL 5V PEL/AP/LAT EACH HIP RADEX HIPS BILATERAL WITH PELVIS MINIMUM 5 VIEWS Dayami Castaneda APRN.GIG TENDER [address] [place] [address] [place] [address] Referral ID Status Reason Start Date Expiration Date Visits Requested Visits Authorized [id number] Pending Review Auto-Generat ed Referral 11/08/2022 12/08/2023 1 1 * Diagnostic Procedure Only (Routine) - Pending Review Specialty Diagnoses / Procedures Referred By Contac t Referred To Contact [facility] Diagnoses Muscle spasm Procedures US ABD RIGHT UPPER QUADRANT US ABDOMINAL REAL TIME W/IMAGE LIMITED Dayami Castaneda APRN.GIG TENDER [address] [place] [address] [place] [address] Referral ID Status Reason Start Date Expiration Date Visits Requested Visits Authorized [id number] Pending Review Auto-Generat ed Referral 11/08/2022 12/08/2023 1 1 [facility] for referral (narrative)* Diagnostic Procedure Only (Routine) - Closed Specialty Diagnoses / Procedures Referred By Contac t Referred To Contact [facility] Diagnoses Mastalgia Mass of left breast, unspecified quadrant Procedures US BREAST LTD LEFT US BREAST UNI REAL TIME WITH IMAGE LIMITED Rabia Romero APRN.GIG TENDER [address] [place] [address] [facility] [address] [place] [address] Referral ID Status Reason Start Date Expiration Date V isits Requested Visits Authorized [id number] Closed Auto-Generate d Referral 10/24/2022 11/23/2023 1 1 [facility] for referral (narrative)* Diagnostic Procedure Only (Routine) - Closed Specialty Diagnoses / Procedures Referred By Williamac t Referred To Contact [facility] Diagnoses Thyroid goiter Procedures US THYROID/PARATHYROID US SOFT TISSUE HEAD & NECK REAL TIME IMGE Jhonny Jett APRN.CNP [address] [place] [address] [place] [address] Referral ID Status Reason Start Date Expiration Date V isits Requested Visits Authorized [id number] Closed Auto-Generate d Referral 11/15/2022 12/15/2023 1 1 [facility] Reason for Referral Specialty Diagnoses / Procedures Referred By Contac t Referred To Contact Gastroenterology Diagnoses Irritable bowel syndrome with both constipation and diarrhea Procedures CONSULT TO GASTROENTEROLOGY OFFICE/OUTPATIENT PENDING S[facility] TO [facility] MDM 60-74 MINUTES Rabia Romero APRN.GIG TENDER [address] [place] [address] Referral ID Status Reason Start Date Expiration Date Visits Requested Visits Authorized [id number] Authorized PCP Requested Referral 10/03/2021 10/03/2022 1 1 Specialty Diagnoses / Procedures Referred By Contac t Referred To Contact [facility] Diagnoses Pelvic pain in female Deep dyspareunia Procedures PELVIC US WHI US PELVIC NONOBSTETRIC REAL-TIME IMAGE COMPLETE Rabia Romero PROP MAKER.GIG TENDER [address] [place] [address] [facility] [address] [place] [address] Referral ID Status Reason Start Date Expiration Date Visits Requested Visits Authorized [id number] Authorized Auto-Generat ed Referral 10/03/2021 10/03/2022 1 1 Specialty Diagnoses / Procedures Referred By Contac t Referred To Contact Orthopedics Diagnoses Wrist pain, acute, left Procedures CONSULT TO ORTHOPAEDICS OFFICE/OUTPATIENT [facility] 60-74 MINUTES Lalo Tovar, PARVIZ.GIG TENDER [address] [place] [address] Referral ID Status Reason Start Date Expiration Date Visits Requested Visits Authorized [id number] Authorized PCP Requested Referral 05/30/2022 05/30/2023 1 1 Specialty Diagnoses / Procedures Referred By Contac t Referred To Contact XR IMAGING Diagnoses Wrist pain, acute, left Procedures XR WRIST INJURY 4V PA/LAT/OBL/SCAPH LEFT RADEX WRIST COMPLETE MINIMUM 3 VIEWS Lalo Tovar, PARVIZ.GIG TENDER [address] [place] [address] [facility] Referral ID Status Reason Start Date Expiration Date V isits Requested Visits Authorized [id number] Closed Auto-Generate d Referral 05/30/2022 06/29/2023 1 1 Advance Directives Documents on File Type Date Recorded Patient Psychic Reader Expl anation Advance Directive(s) 01/19/2018 11:36 AM Documents on File Type Date Recorded Patient Psychic Reader Expl anation Advance Directive(s) 01/19/2018 11:36 AM Medications Administered Section Inactive Administered Medications - up to 3 most recent administrations Medication Order MAR Action Action Date Dose Rate Site etonogestrel subdermal implant 68 mg (NEXPLANON) 68 mg, SUBDERMAL, ONCE (UP TO 30 DAYS AMB), 1 dose, On Fri01/01/22 at 1200, Hazardous Potential Reproductive Risk Drug: Use appropriate PPE. Must be inserted subdermally in the upper arm by a trained healthcare provider. Given 01/01/2022 11:58 AM EDT 68 mg Arm, Left Summary Purpose Family History No Family History Records Found Additional Source Comments Source Comments (unrecognize d section and content) In the event this informatio n is protected by the Federal Confidentiality of Alcohol and Drug Abuse Patient Records regulations: The Federal rules restrict any use of the information to criminally investigate or prosecute any alcohol or drug abuse patient.[facility] the event this information is protected by the Federal Confidentiality of Alcohol and Drug Abuse Patient Records regulations: The Federal rules restrict any use of the information to criminally investigate or prosecute any alcohol or drug abuse patient.[facility] the event this information is protected by the Federal Confidentiality of Alcohol and Drug Abuse Patient Records regulations: The Federal rules restrict any use of the information to criminally investigate or prosecute any alcohol or drug abuse patient.[facility] the event this information is protected by the Federal Confidentiality of Alcohol and Drug Abuse Patient Records regulations: The Federal rules restrict any use of the information to criminally investigate or prosecute any alcohol or drug abuse patient.[facility] the event this information is protected by the Federal Confidentiality of Alcohol and Drug Abuse Patient Records regulations: The Federal rules restrict any use of the information to criminally investigate or prosecute any alcohol or drug abuse patient.[facility] the event this information is protected by the Federal Confidentiality of Alcohol and Drug Abuse Patient Records regulations: The Federal rules restrict any use of the information to criminally investigate or prosecute any alcohol or drug abuse patient.[facility] the event this information is protected by the Federal Confidentiality of Alcohol and Drug Abuse Patient Records regulations: The Federal rules restrict any use of the information to criminally investigate or prosecute any alcohol or drug abuse patient.[facility] the event this information is protected by the Federal Confidentiality of Alcohol and Drug Abuse Patient Records regulations: The Federal rules restrict any use of the information to criminally investigate or prosecute any alcohol or drug abuse patient.[facility] the event this information is protected by the Federal Confidentiality of Alcohol and Drug Abuse Patient Records regulations: The Federal rules restrict any use of the information to criminally investigate or prosecute any alcohol or drug abuse patient.[facility] the event this information is protected by the Federal Confidentiality of Alcohol and Drug Abuse Patient Records regulations: The Federal rules restrict any use of the information to criminally investigate or prosecute any alcohol or drug abuse patient.[facility] the event this information is protected by the Federal Confidentiality of Alcohol and Drug Abuse Patient Records regulations: The Federal rules restrict any use of the information to criminally investigate or prosecute any alcohol or drug abuse patient.[facility] the event this information is protected by the Federal Confidentiality of Alcohol and Drug Abuse Patient Records regulations: The Federal rules restrict any use of the information to criminally investigate or prosecute any alcohol or drug abuse patient.[facility] the event this information is protected by the Federal Confidentiality of Alcohol and Drug Abuse Patient Records regulations: The Federal rules restrict any use of the information to criminally investigate or prosecute any alcohol or drug abuse patient.[facility] the event this information is protected by the Federal Confidentiality of Alcohol and Drug Abuse Patient Records regulations: The Federal rules restrict any use of the information to criminally investigate or prosecute any alcohol or drug abuse patient.[facility] the event this information is protected by the Federal Confidentiality of Alcohol and Drug Abuse Patient Records regulations: The Federal rules restrict any use of the information to criminally investigate or prosecute any alcohol or drug abuse patient.[facility] the event this information is protected by the Federal Confidentiality of Alcohol and Drug Abuse Patient Records regulations: The Federal rules restrict any use of the information to criminally investigate or prosecute any alcohol or drug abuse patient.[facility] the event this information is protected by the Federal Confidentiality of Alcohol and Drug Abuse Patient Records regulations: The Federal rules restrict any use of the information to criminally investigate or prosecute any alcohol or drug abuse patient.[facility] the event this information is protected by the Federal Confidentiality of Alcohol and Drug Abuse Patient Records regulations: The Federal rules restrict any use of the information to criminally investigate or prosecute any alcohol or drug abuse patient.[facility] the event this information is protected by the Federal Confidentiality of Alcohol and Drug Abuse Patient Records regulations: The Federal rules restrict any use of the information to criminally investigate or prosecute any alcohol or drug abuse patient.[facility] Reason for Visit (unrecogniz ed section and content) Specialty Diagnoses / Procedures Referred By Crow holland Referred To Contact [facility] Diagnoses Thyroid goiter Procedures US THYROID/PARATHYROID US SOFT TISSUE HEAD & NECK REAL TIME IMGE Jhonny Jett, PROP MAKER.GIG TENDER [address] [place] [address] [place] [address] Referral ID Status Reason Start Date Expiration Date V isits Requested Visits Authorized [id number] Closed Auto-Generate d Referral 11/15/2022 12/15/2023 1 1 Reason Comments Well 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 Ultrasound Reason Comments Ultrasound Results Reason Comments Physical Dizziness Reason Comments Orders Reason Comments nexplanon removol and insertion Specialty Diagnoses / Procedures Referred By Crow holland Referred To Contact [facility] Diagnoses Encounter for removal and reinsertion of Nexplanon Procedures NEXPLANON REMOVAL REMOVAL NON-BIODEGRADABLE DRUG DELIVERY IMPLANT Rabia Romero APRN.GIG TENDER [address] [place] [address] [facility] [address] [place] [address] Referral ID Status Reason Start Date Expiration Date V isits Requested Visits Authorized [id number] Closed Auto-Generate d Referral 12/25/2021 12/24/2022 1 1 Reason Comments Patient Question Reason Comments Trauma Left wrist pain x 1 day Reason Comments Vaginal Problem Vaginal itching x 1 day Reason Comments Results Orders Reason Onset Date Comments Yearly Exam Radiology Mammogram 10/24/2022 at [facility] Reason Comments Physical Right hip pain x 2 m onths , chest and SOB x 1 month Reason Comments Pain Left wrist pain x 3 days Reason Comments Orders Specialty Diagnoses / Procedures Referred By Crow holland Referred To Contact [facility] Diagnoses Mastalgia Mass of left breast, unspecified quadrant Procedures US BREAST LTD LEFT US BREAST UNI REAL TIME WITH IMAGE LIMITED Rabia Romero, PROP MAKER.GIG TENDER [address] [place] [address] [facility] [address] [place] [address] Referral ID Status Reason Start Date Expiration Date V isits Requested Visits Authorized [id number] Closed Auto-Generate d Referral 10/24/2022 11/23/2023 1 1 Care Teams (unrecognized sec tion and content) Campus Security Director Relationship Specialty Start Date End Date Sergio Wilhelm DO [address] [place] [address] PCP - General Family Practice 03/12/13 Campus Security Director Relationship Specialty Start Date End Date Sergio Wilhelm DO [address] [place] [address] PCP - General Family Practice 03/12/13 Campus Security Director Relationship Specialty Start Date End Date Sergio Wilhelm DO [address] [place] [address] PCP - General Family Practice 03/12/13 Campus Security Director Relationship Specialty Start Date End Date Sergio Wilhelm DO [address] [facility] [place] [address] PCP - General Family Medicine 03/12/13 Campus Security Director Relationship Specialty Start Date End Date Sergio Wilhelm DO [address] [place] [address] PCP - General Family Medicine 03/12/13 Campus Security Director Relationship Specialty Start Date End Date Sergio Wilhelm DO [address] [place] [address] PCP - General Family Medicine 03/12/13 Campus Security Director Relationship Specialty Start Date End Date Sergio Wilhelm DO [address] [facility] [address] PCP - General Family Medicine 03/12/13 Campus Security Director Relationship Specialty Start Date End Date Sergio Wilhelm DO [address] [place] [address] PCP - General Family Medicine 03/12/13 Campus Security Director Relationship Specialty Start Date End Date Sergio Wilhelm, DO [address] [facility] [place] [address] PCP - General Family Medicine 03/12/13 Campus Security Director Relationship Specialty Start Date End Date Sergio Wilhelm, [address] [facility] [place] [address] PCP - General Family Medicine 03/12/13 Campus Security Director Relationship Specialty Start Date End Date Sergio Wilhelm DO [address] [facility] [place] [address] PCP - General Family Medicine 03/12/13 Campus Security Director Relationship Specialty Start Date End Date Sergio Wilhelm DO [address] [facility] [place] [address] PCP - General Family Medicine 03/12/13 Campus Security Director Relationship Specialty Start Date End Date Sergio Wilhelm, [address] [facility] [place] [address] PCP - General Family Medicine 03/12/13 Campus Security Director Relationship Specialty Start Date End Date Sergio Wilhelm DO [address] [facility] [place] [address] PCP - General Family Medicine 03/12/13 Campus Security Director Relationship Specialty Start Date End Date Sergio Wilhelm DO [address] [facility] [place] [address] PCP - General Family Medicine 03/12/13 INFORMATION SOURCE (unrecogn ized section and content) FOR RECORDS PERTAINING TO PATIENTS WHO ARE OR HAVE BEEN ENROLLED IN A CHEMICAL DEPENDENCY/SUBSTANCEABUSE PROGRAM, SOME INFORMATION MAY BE OMITTED. This clinical summary was aggregated from multiple sources. Caution should be exercised in using it in the provision of clinical care. This summary normalizes information from multiple sources, and as a consequence, information in this document may materially change the coding, format and clinical context of patient data. In addition, data may be omitted in some cases. CLINICAL DECISIONS SHOULD BE BASED ON THE PRIMARY CLINICAL RECORDS. [employer] [facility]. provides no warranty or guarantee of the accuracy or completeness of information in this document.
[2023-05-10] MEDS: 0.9% Normal Saline (1000mL) 1,000 ML 1000 ML IV (17:49)
[2023-05-10] MEDS: Morphine 2 MG/ML Syringe IV (17:50)
[2023-05-10] MEDS: Ondansetron 4 MG/2 ML Vial IV (17:50)
[2023-05-10 17:54] VITALS: BP 115/91; PULSE 109; RESP 22; TEMP 36.8; O2SAT 100
[2023-05-10 18:01] LABS: Anion Gap 9 (5-15); BUN 16 mg/dL (7-18); BUN/Creat Ratio 13.1 RATIO (10-20); Calcium,Total 9.7 mg/dL (8.5-10.1); Chloride 100 mmol/L (98-107); Creatinine, Serum 1.22 mg/dL (0.55-1.02); EST Glomerular Filtration Rate 53 mL/min (>60); Est Glom Filt Rate - Afr Amer 64 mL/min (>60); Estimated Creatinine Clearance 58.01 ml/min; Glucose 180 mg/dL (74-106); Potassium 3.1 mmol/L (3.5-5.1); Sodium Level 135 mmol/L (136-145)
[2023-05-10] MEDS: Lorazepam 2 MG/ML WCH Syringe 0.5 MG IV (19:09)
[2023-05-10] MEDS: Famotidine 200 MG/20 ML MDV 20 MG in 0.9% Normal Saline (Pres. free 8 ML 300 MG IV (19:09)
[2023-05-10] MEDS: DiphenhydrAMINE 25 MG, ChlorproMAZINE IM 25 MG in 0.9% Normal Saline (100mL Bag) 100 ML 203 MG IV (19:47)
[2023-05-10 19:50] VITALS: BP 110/89; PULSE 74; RESP 16; O2SAT 97
[2023-05-10] MEDS: Potassium Chloride Oral Soln 20 MEQ/15 ML UDC 40 MEQ PO (21:34)
[2023-05-10 22:10] VITALS: BP 112/79; PULSE 72; RESP 15; TEMP 36.3; O2SAT 98
== END 2023-05-10 22:14 | disposition home or self-care (01) ==
PROVIDERS: Emergency Provider Emergency Medicine; PCP Student in an Organized Health Care Education/Training Program; Visit Provider Emergency Medicine
DX: R11.2 Nausea with vomiting, unspecified (principal); F12.20 Cannabis dependence, uncomplicated; J10.1 Influenza due to other identified influenza virus with other respiratory manifestations; Z87.891 Personal history of nicotine dependence; E86.0 Dehydration; R19.7 Diarrhea, unspecified; R00.0 Tachycardia, unspecified; K21.9 Gastro-esophageal reflux disease without esophagitis; R51.9 Headache, unspecified; R79.89 Other specified abnormal findings of blood chemistry
CPT/HCPCS: 80048; 96361; 96365; 96366; 96368; 96375; 99283; J7030; A4216; J2405; J3490

== ENCOUNTER 2023-05-11 22:03 | Emergency (ER) | payer MEDICAID, SELFPAY ==
[2023-05-11 22:04] VITALS: BP 117/90; PULSE 93; RESP 18; TEMP 36.1; O2SAT 100; BMI 25.7
[2023-05-11 22:06] VITALS: BP 117/90; PULSE 93; RESP 18; TEMP 36.1; O2SAT 100
--- NOTE | 2023-05-11 22:34 | EDS_ITS ---
HPI History of Present Illness Chief Complaint: Nausea/Vomiting Informant: patient Narrative Narrative: Patient presents secondary to recurrent vomiting. She was diagnosed with influenza B on the . She had some nausea at that visit. She was prescribed Tamiflu which she believes triggered her vomiting. She also has a history of cyclic vomiting. She was seen in the emergency room last evening. She did not improve with Zofran so therefore was given Ativan, Thorazine, and Benadryl. She admits that she felt well when she went home last evening, but developed recurrent vomiting today. She has Bentyl and Phenergan at home but states she could not keep it down. She is complaining of burning sensation in her mid chest and feels that she has something caught in her lower esophagus. PFSH PFSH Medical History COVID-19 Cyclic vomiting syndrome Esophageal reflux Former tobacco use Leukocytosis Marijuana smoker, episodic Home Medications omeprazole 40 mg capsule,delayed release 40 mg PO DAILY #30 caps 05/12/23 [Rx Last Taken Unknown] ondansetron 4 mg disintegrating tablet 4 mg PO Q8H PRN PRN Nausea #10 tabs 05/12/23 [Rx Last Taken Unknown] Allergy/AdvReac Type Severity Reaction Status Date / Time Fish Containing Products Allergy Swelling Verified 05/11/23 22:07 haloperidol [From Haldol] AdvReac Other Verified 05/11/23 22:07 Family History Mother Hypertension Hyperlipidemia Father Hypertension Hyperlipidemia Surgical History Status post cholecystectomy Social History household members: significant other Smoking Status: Current some day smoker tobacco type: cigarettes how long ago did patient quit smoking: Quit 15 years prior to current presentation. alcohol intake: never substance use type: marijuana ROS ROS ED Constitutional Constitutional ED: Denies chills or fever(s) Eyes Eyes: Denies discharge from eye(s) ENT ENT ED: Denies discharge from eye(s), rhinorrhea or sore throat Cardiovascular Cardiovascular: Reports chest pain; Denies palpitations Respiratory/Chest Respiratory/Chest: Denies cough or dyspnea Gastrointestinal Gastrointestinal: Reports abdominal pain, nausea and vomiting; Denies diarrhea Musculoskeletal Musculoskeletal: Denies back pain or extremity pain Integumentary Denies Abrasions or rash Neurologic Neurologic: Denies headache(s) or weakness Psychiatric Psychiatric: Denies anxiety or depression Allergic/Immunologic Allergic/Immunologic ED: Denies lip swelling or urticaria EXAM Physical Exam Const Vital Signs: 05/11/23 22:04 05/11/23 22:06 05/11/23 23:06 Temperature 97.0 F L 97.0 F L 98.2 F Temperature Source Temporal Temporal Oral Pulse Rate 93 93 98 Respiratory Rate 18 18 16 Blood Pressure 117/90 H 117/90 H 97/74 Blood Pressure Mean 99 99 81 Pulse Ox 100 100 98 Oxygen Delivery Method Room Air Room Air Room Air 05/12/23 00:03 Temperature 98.8 F Temperature Source Oral Pulse Rate 85 Respiratory Rate 14 Blood Pressure 106/75 Blood Pressure Mean 85 Pulse Ox 98 Oxygen Delivery Method Room Air Positive well nourished and well developed General Appearance ED: well developed HEENT Reports moist mucous membranes Eyes EOMs intact bilaterally Chest Wall inspection of chest normal and palpation of chest normal Resp normal respiratory effort and clear to auscultation bilaterally Cardio regular rate and regular rhythm GI GI Narrative: Abdomen soft with epigastric tenderness to palpation. No guarding or rebound. Extremity normal to inspection Neuro oriented x3 Skin no rashes or lesions noted MDM MDM MDM Narrative Medical decision making narrative: Patient's ED visit from earlier this week reviewed. IV line established. Patient given IV fluids, Reglan, and Benadryl. Labwork obtained to evaluate for leukocytosis, anemia, and electrolyte derangement. History & Record Review Discussion w/independent historian: Patient Additional record(s) reviewed:: Prior ED visit and Prior labs Lab Data Attestation: I reviewed the patient's lab results. Labs: Laboratory Results - last 24 hr 05/11/23 22:55 WBC 3.4 L RBC 5.26 Hgb 14.5 Hct 45.8 MCV 87.1 MCH 27.6 MCHC 31.7 L RDW Std Deviation 39.4 RDW Coeff of Fabian 12.4 Plt Count 216 MPV 9.2 Immature Gran % (Auto) 0.300 Neut % (Auto) 29.1 L Lymph % (Auto) 56.0 H [place] % (Auto) 13.4 H Eos % (Auto) 0.0 Baso % (Auto) 1.2 H Absolute Neuts (auto) 1.0 L Absolute Lymphs (auto) 1.92 Nucleated RBC % 0 Sodium 140 Potassium 3.3 L Chloride 105 Carbon Dioxide 29.0 Anion Gap 6 BUN 11 Creatinine 1.07 H Estim Creat Clear Calc 66.32 Est GFR (MDRD) Af Amer 74 Est GFR (MDRD) Non-Af 61 BUN/Creatinine Ratio 10.3 Glucose 132 H Calcium 9.0 Total Bilirubin 0.20 Direct Bilirubin 0.13 AST 43 H ALT 48 Alkaline Phosphatase 78 Total Protein 7.6 Albumin 3.6 Globulin 4.0 Lipase 35 Radiography Diagnostic Testing: Clinical Impression(s) from Imaging Studies Chest X-Ray 05/11/23 23:00 IMPRESSION: Normal x-ray examination of the chest. Electronically Signed: Juan Gimenez MD at 23:45 EST Reading Location ID and State: [facility] / [place] Tel , Service support , Treatment and Re-Evaluation :: Repeat evaluation patient's nausea is improved. She still complains of central chest pain. Portable chest x-ray per my interpretation reveals no acute abnormalities. Radiology interpretation reviewed and agrees. CBC reveals a white count of 3.4 consistent with her viral infection. Chemistry studies reveal a BUN of 11 and a creatinine of 1. 07. This is improved from a creatinine 1.22 yesterday. LFTs significant only for an AST of 43. Lipase is normal at 35. Patient will be given a dose of Toradol along with a GI cocktail. She will be given prescriptions for Zofran ODT along with Prilosec. Return instructions given. Discharge Plan Triage Chief Complaint: Nausea/Vomiting ED Provider: Nikki Hollingsworth Dx/Rx/DC Orders Clinical Impression: Influenza, Vomiting Instructions: ED Influenza (Adult), ED Vomiting (Adult) Prescriptions: New ondansetron 4 mg tablet,disintegrating 4 mg PO Q8H PRN PRN (Reason: Nausea) Qty: 10 0RF omeprazole 40 mg capsule,delayed release(DR/EC) 40 mg PO DAILY Qty: 30 0RF Primary Care Provider: Sergio Grover Referrals: Grover,Sergio, DO [Primary Care Provider] - 1-2 Weeks Disposition Disposition: Home, Self Care
--- OUTSIDE RECORDS SUMMARY | 2023-05-11 22:44 | XMS RPT_ITS | CCD ---
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 Name Role Phone Sergio Wilhelm DO Primary Care Provider SERGIO WILHELM Primary Care Unavailable DAYAMI CASTANEDA Attending Unavailable SERGIO WILHELM Primary Care Unavailable DAYAMI CASTANEDA Referring Unavailable SERGIO WILHELM Primary Care Unavailable DAYAMI CASTANEDA Referring Unavailable SERGIO WILHELM Primary Care Unavailable DAYAMI CASTANEDA Referring Unavailable SERGIO WILHELM Primary Care Unavailable SERGIO WILHELM Primary Care Unavailable RABIA ROMERO Attending Unavailable SERGIO WILHELM Primary Care Unavailable JHONNY RUIZ Referring Unavailable SERGIO WILHELM Primary Care Unavailable RABIA ROMERO Referring Unavailable SERGIO WILHELM Primary Care Unavailable RABIA ROMERO Referring Unavailable CHOCO, SERGIO Luis Alberto Primary Care Unavailable JUAN MONTANA Attending Unavailable SERGIO WILHELM Primary Care Unavailable JHONNY RUIZ Attending Unavailable SERGIO WILHELM Primary Care Unavailable SERGIO WILHELM Primary Care Unavailable LALO TOVAR Referring Unavailable SERGIO WILHELM Primary Care Unavailable CHOCO, SERGIO Sahu Primary Care Unavailable Allergies Allergy Classification Reported Allergen(s) Allergy Type Date of Onset Reaction(s) Facility (20 sources) Atropine / Diphenoxylate; Translations: [DIPHENOXYLATE-A TROPINE] Drug Allergy 01-13-2017 Intolerance, GI Upset [facility] Work Phone: (20 sources) Fish; Translations: [FISH] Food Allergy 08-29-2011 Swelling, Other: See Comments [facility] Work Phone: Medications Current Medications Medication [...] Time Vital Sign Value Performing Clinician Kay brittney 11-18-2022 14:18-0400 Body temperature 98.1 [degF] Corey Sloan MD Work Phone: [facility] 11-18-2022 14:18-0400 Body weight 70.22 kg Corey Sloan MD Work Phone: [facility] 11-18-2022 14:18-0400 Diastolic blood pressure 68 mm[Hg] Corey Sloan MD Work Phone: [facility] 11-18-2022 14:18-0400 Heart rate 81 /min Corey Sloan MD Work Phone: [facility] 11-18-2022 14:18-0400 Respiratory rate 21 /min Corey Sloan MD Work Phone: [facility] 11-18-2022 14:18-0400 SaO2% (BldA) [Mass fraction] 99 % Corey Sloan MD Work Phone: [facility] 11-18-2022 14:18-0400 Systolic blood pressure 100 mm[Hg] Corey Sloan MD Work Phone: [facility] 11-08-2022 11:28-0400 Body height 163 cm Dayami Tonya UTILITY SALES REPRESENTATIVE.FPGA DESIGN ENGINEER Work Phone: [facility] 11-08-2022 11:28-0400 Body weight 69.85 kg Dayami Tonya UTILITY SALES REPRESENTATIVE.FPGA DESIGN ENGINEER Work Phone: [facility] 11-08-2022 11:28-0400 Diastolic blood pressure 64 mm[Hg] Dayami Tonya UTILITY SALES REPRESENTATIVE.FPGA DESIGN ENGINEER Work Phone: [facility] 11-08-2022 11:28-0400 Heart rate 74 /min Dayami Tonya UTILITY SALES REPRESENTATIVE.FPGA DESIGN ENGINEER Work Phone: [facility] 11-08-2022 11:28-0400 Respiratory rate 16 /min Dayami Tonya UTILITY SALES REPRESENTATIVE.FPGA DESIGN ENGINEER Work Phone: [facility] 11-08-2022 11:28-0400 SaO2% (BldA) [Mass fraction] 99 % Dayami Castaneda APRN.FPGA DESIGN ENGINEER Work Phone: [facility] 11-08-2022 11:28-0400 Systolic blood pressure 102 mm[Hg] Dayami Castaneda APRN.FPGA DESIGN ENGINEER Work Phone: [facility] 10-24-2022 11:17-0400 Body height 160 cm Rabia Romero APRN.FPGA DESIGN ENGINEER Work Phone: [facility] 10-24-2022 11:17-0400 Body weight 67.59 kg Rabia Romero APRN.FPGA DESIGN ENGINEER Work Phone: [facility] 10-24-2022 11:17-0400 Diastolic blood pressure 68 mm[Hg] Rabia Romero APRN.FPGA DESIGN ENGINEER Work Phone: [facility] 10-24-2022 11:17-0400 Systolic blood pressure 112 mm[Hg] Rabia Romero APRN.FPGA DESIGN ENGINEER Work Phone: [facility] 06-15-2022 08:47-0400 Body temperature 97.5 [degF] Radha Humphreys APRN.FPGA DESIGN ENGINEER Work Phone: [facility] 06-15-2022 08:47-0400 Body weight 71.85 kg Radha Humphreys APRN.FPGA DESIGN ENGINEER Work Phone: [facility] 06-15-2022 08:47-0400 Diastolic blood pressure 64 mm[Hg] Radha Humphreys APRN.FPGA DESIGN ENGINEER Work Phone: [facility] 06-15-2022 08:47-0400 Heart rate 70 /min Radha Humphreys APRN.FPGA DESIGN ENGINEER Work Phone: [facility] 06-15-2022 08:47-0400 Respiratory rate 18 /min Radha Humphreys APRN.FPGA DESIGN ENGINEER Work Phone: [facility] 06-15-2022 08:47-0400 SaO2% (BldA) [Mass fraction] 99 % Radha Humphreys APRN.FPGA DESIGN ENGINEER Work Phone: [facility] 06-15-2022 08:47-0400 Systolic blood pressure 102 mm[Hg] Radha Humphreys APRN.FPGA DESIGN ENGINEER Work Phone: [facility] 05-30-2022 09:20-0500 Body temperature 96.91 [degF] Lalo Tovar UTILITY SALES REPRESENTATIVE.FPGA DESIGN ENGINEER Work Phone: [facility] 05-30-2022 09:20-0500 Body weight 67.59 kg Lalo Tovar UTILITY SALES REPRESENTATIVE.FPGA DESIGN ENGINEER Work Phone: [facility] 05-30-2022 09:20-0500 Diastolic blood pressure 76 mm[Hg] Lalo Tovar UTILITY SALES REPRESENTATIVE.FPGA DESIGN ENGINEER Work Phone: [facility] 05-30-2022 09:20-0500 Heart rate 80 /min Lalo Tovra UTILITY SALES REPRESENTATIVE.FPGA DESIGN ENGINEER Work Phone: [facility] 05-30-2022 09:20-0500 Respiratory rate 21 /min Lalo Tovar UTILITY SALES REPRESENTATIVE.FPGA DESIGN ENGINEER Work Phone: [facility] 05-30-2022 09:20-0500 SaO2% (BldA) [Mass fraction] 99 % Lalo Tovar UTILITY SALES REPRESENTATIVE.FPGA DESIGN ENGINEER Work Phone: [facility] 05-30-2022 09:20-0500 Systolic blood pressure 108 mm[Hg] Lalo Tovar UTILITY SALES REPRESENTATIVE.FPGA DESIGN ENGINEER Work Phone: [facility] 01-01-2022 11:37-0400 Body weight 63.05 kg Rabia Romero APRN.FPGA DESIGN ENGINEER Work Phone: [facility] 01-01-2022 11:37-0400 Diastolic blood pressure 60 mm[Hg] Rabia Romero APRN.FPGA DESIGN ENGINEER Work Phone: [facility] 01-01-2022 11:37-0400 Systolic blood pressure 96 mm[Hg] Rabia Romero APRN.FPGA DESIGN ENGINEER Work Phone: [facility] 12-10-2021 09:19-0400 Body height 165.2 cm Dayami Tonya UTILITY SALES REPRESENTATIVE.FPGA DESIGN ENGINEER Work Phone: [facility] 12-10-2021 09:19-0400 Body weight 63.96 kg Dayami Tonya UTILITY SALES REPRESENTATIVE.FPGA DESIGN ENGINEER Work Phone: [facility] 12-10-2021 09:19-0400 Diastolic blood pressure 60 mm[Hg] Dayami Tonya UTILITY SALES REPRESENTATIVE.FPGA DESIGN ENGINEER Work Phone: [facility] 12-10-2021 09:19-0400 Heart rate 67 /min Dayami Tonya UTILITY SALES REPRESENTATIVE.FPGA DESIGN ENGINEER Work Phone: [facility] 12-10-2021 09:19-0400 Respiratory rate 16 /min Dayami Tonya UTILITY SALES REPRESENTATIVE.FPGA DESIGN ENGINEER Work Phone: [facility] 12-10-2021 09:19-0400 SaO2% (BldA) [Mass fraction] 98 % Dayami Tonya UTILITY SALES REPRESENTATIVE.FPGA DESIGN ENGINEER Work Phone: [facility] 12-10-2021 09:19-0400 Systolic blood pressure 98 mm[Hg] Dayami Tonya UTILITY SALES REPRESENTATIVE.FPGA DESIGN ENGINEER Work Phone: [facility] 10-03-2021 15:14-0400 Body height 162.6 cm Rabia Romero UTILITY SALES REPRESENTATIVE.FPGA DESIGN ENGINEER Work Phone: [facility] 10-03-2021 15:14-0400 Body weight 62.69 kg Rabia Romero UTILITY SALES REPRESENTATIVE.FPGA DESIGN ENGINEER Work Phone: [facility] 10-03-2021 15:14-0400 Diastolic blood pressure 58 mm[Hg] Rabia Backhrie UTILITY SALES REPRESENTATIVE.FPGA DESIGN ENGINEER Work Phone: [facility] 10-03-2021 15:14-0400 Systolic blood pressure 90 mm[Hg] Rabia Romero UTILITY SALES REPRESENTATIVE.FPGA DESIGN ENGINEER Work Phone: [facility] Encounters Encounter Date Encounter Type Care Provider Facility Start: 05-09-2023 Telephone encounter Diomedes champion DO Work Phone: Neurology Start: 03-05-2023 End: 03-05-2023 ambulatory JHONNY RUIZ Facility:[facility] Start: 01-02-2023 End: 01-02-2023 ambulatory JUAN MONTANA Facility:[facility] Start: 12-03-2022 End: 12-03-2022 ambulatory RABIA ROMERO Facility:[facility] Start: 12-03-2022 End: 12-03-2022 Subsequent hospital visit by physician [facility] Work Phone: Radiology Procedures Date Procedure Procedure Detail Performing Clinician Start: 12-03-2022 Us breast uni real t martin with image limited Rabia Romero APRN.FPGA DESIGN ENGINEER Work Phone: Start: 11-28-2022 Us soft tissue head & neck real time imge docm Jhonny Joseph JJ.FPGA DESIGN ENGINEER Work Phone: Start: 09-07-2019 Adult depression screening assessment Rabia Romero APRN.FPGA DESIGN ENGINEER Work Phone: Plan of Treatment Date Care Activity Detail Author Start: 08-26-2028 Urine microalbumin profile [facility] Start: 03-05-2024 Covid-19 Vaccine (#1) Covid-19 Vacci ne (#1) [facility] Immunizations Immunization Date Immunization Notes Care Provider Cesilia villalobos 04-30-2019 influenza, injectabl e, quadrivalent, contains preservative Rabia Romero APRN.FPGA DESIGN ENGINEER Work Phone: [facility] 04-30-2019 influenza virus vacc ine, unspecified formulation 1 Work Phone: [facility] 08-26-2018 tetanus toxoid, redu justyn diphtheria toxoid, and acellular pertussis vaccine, adsorbed Rabia Romero APRN.FPGA DESIGN ENGINEER Work Phone: [facility] 12-22-2016 influenza, seasonal, injectable Rabia Romero APRN.FPGA DESIGN ENGINEER Work Phone: [facility] 12-12-2014 influenza, injectabl e, quadrivalent, contains preservative Rabia Romero APRN.FPGA DESIGN ENGINEER Work Phone: [facility] 12-12-2014 influenza, seasonal, injectable Rabia Romero APRN.FPGA DESIGN ENGINEER Work Phone: [facility] Work Phone: 11-09-2014 tetanus toxoid, redu justyn diphtheria toxoid, and acellular pertussis vaccine, adsorbed Rabia Romero APRN.[facility] Work Phone: [facility] 02-08-2013 varicella virus vaccine Rabia Romero APRN.[facility] Work Phone: [facility] 12-23-2012 influenza virus vacc ine, unspecified formulation Rabia Romero APRN.FPGA DESIGN ENGINEER Work Phone: [facility] Work Phone: 12-22-2012 influenza, seasonal, injectable, preservative free Rabia Roemro APRN.[facility] Work Phone: [facility] Work Phone: 10-17-2012 varicella virus vaccine Rabia Romero APRN.[facility] Work Phone: [facility] 08-05-2011 tetanus toxoid, redu justyn diphtheria toxoid, and acellular pertussis vaccine, adsorbed Rabia Romero APRN.[facility] Work Phone: [facility] Work Phone: 01-31-2009 novel Influenza-H1N1 -09, live virus for nasal administration Rabia Romero APRN.[facility] Work Phone: [facility] Work Phone: Payers Date Payer Category Payer Medicaid [id number] 2016 Medicaid [place] [employer] [place] [employer] [id number] 2016-Present [phone] [address] [place] [address] Medicaid [id number] 2016 Medicaid [id number] Social History Date Type Detail Facility Start: 12-10-2021 Tobacco smoking stat [facility] Ex-smoker [facility] Work Phone: End: 03-24-2005 History of tobacco use Current smoker [facility] Work Phone: End: 03-24-2005 History of tobacco use Cigarette Smoker [facility] Work Phone: Start: 10-03-2021 End: 06-15-2022 Alcohol intake Current non-drinker of alcohol (finding) [facility] Start: 09-07-2019 History SDOH Alcohol Frequency 3 [facility] Start: 09-07-2019 History SDOH Alcohol Std Drinks 1 [facility] Start: 09-07-2019 History SDOH Social Connections Phone 5 [facility] Start: 09-07-2019 End: 05-05-2020 History SDOH Social Connections Get Together 2 [facility] Start: 09-07-2019 History SDOH Social Connections Living 8 [facility] Start: 1985 Sex Assigned At Not on file [facility] Start: 09-07-2021 End: 12-10-2021 Exposure to SARS-CoV-2 (event) Not sure [facility] Start: 12-10-2021 End: 10-04-2022 Cigarettes smoked current (pack per day) - Reported 0.5 [facility] Start: 12-10-2021 Tobacco use and exposure Smoke less tobacco non-user [facility] Start: 10-24-2022 End: 11-18-2022 Alcohol intake Current drinker of alcohol (finding) [facility] Start: 09-07-2019 End: 10-04-2022 Social connection and isolation panel [facility] Do you belong to any clubs or organizations such as quaker groups, unions, fraternal or athletic groups, or school groups? No [facility] Are you now , , , , never or living with a partner? Living with partner [facility] How often to you hav e a drink containing alcohol? 2-4 times a month [facility] How many standard dr inks containing alcohol do you have on a typical day? 1 or 2 [facility] How often do you hav e 6 or more drinks on 1 occasion? Never [facility] Adult Depression Scr eening Assessment 0 [facility] Do you feel stress - tense, restless, nervous, or anxious, or unable to sleep at night because your mind is troubled all the time - these days [OSQ] Only a little [facility] Start: 10-24-2022 [facility] Start: 03-05-2023 Alcohol intake Ex-drinker (finding) [facility] Clinical Notes 04-08-2018 to 05-09-2023 Telephone Encounter - Jonas Sanchez - 05/09/2023 3:25 PM Zaida Vitale RDRI - 12/03/2022 1:30 PM Zaida Nguyen RDMS - 11/28/2022 11:30 AM EDTPatient InstructionsPatient Instructions Note Date & Type Note Facility 05-09-2023 Miscellaneous Notes 1st attempt,spoke with patient to reschedule her EMG. She was busy and asked to be called back in a couple days. documented in this encounter [facility] 03-05-2023 Note HNO ID: [id number] Author: Jhonny Ruiz APRN.FPGA DESIGN ENGINEER Service: ? Author Type: Nurse Practitioner Type: Progress Notes Filed: 03/05/2023 5:56 PM Note Text: Chief Complaint Patient presents with: Pain: In left thumb that goes up to shoulder HPI Fadia Pineda is a 37 year old female who presents here today for Above Complaints. Fadia is an established patient of Dr. Choco DO. She is a new patient to [...] done Influenza Vaccin (more content not included)... [facility] 01-02-2023 Note HNO ID: [id number] Author: Juan Montana MD Service: ? Author Type: Physician Type: Progress Notes Filed: 01/02/2023 10:05 AM Note Text: HISTORY AND PHYSICAL - BREAST COMPLAINT Fadia K Edwin 1985 REFERRING PHYSICIAN: CHIEF COMPLAINT: Breast [...] Use Smoking stat (more content not included)... [facility] 12-03-2022 Note HNO ID: [id number] Author: Zaida Gresham RDMS Service: ? Author Type: Med Care Manager Type: Progress Notes Filed: 12/03/2022 4:37 PM [...] Gresham RDMS December 03, 2022 4:37 PM [facility] 12-03-2022 Note HNO ID: [id number] Author: Love Fong Mammo Tech Service: ? Author Type: Med Care Manager Type: Progress Notes Filed: 12/03/2022 1:19 PM [...] Camille Newman December 03, 2022 12:54 PM [facility] 12-03-2022 History of Presen t illness [...] 2022 4:37 PM documented in this encounter [facility] 11-28-2022 Note HNO ID: [id number] Author: Zaida Gresham RDMS Service: ? Author Type: Med Care Manager Type: Progress Notes Filed: 11/28/2022 11:46 AM [...] Gresham RDMS November 28, 2022 11:46 AM [facility] 11-28-2022 Note HNO ID: [id number] Author: Zaida Gresham RDMS Service: ? Author Type: Med Care Manager Type: Progress Notes Filed: 11/28/2022 11:45 AM [...] Gresham RDMS November 28, 2022 11:45 AM [facility] 11-28-2022 History of Presen t illness [...] 2022 11:46 AM documented in this encounter [facility] 11-20-2022 Miscellaneous Notes Ordered Xin Vyas PA-C Patient scheduled for nurse visit 11/22/22 to receive Hepatitis B vaccine. Please place order at this time. Daisy Bernal LPN documented in this encounter [facility] 11-18-2022 Note HNO ID: [id number] Author: Corey Sloan MD Service: ? Author [...] orthopedics if not improving. Corey Sloan MD [facility] 11-18-2022 Note HNO ID: [id number] Author: Misty Perera RT(R) Service: Radiology Author [...] PERIPHERAL IV DATA: Not applicable SIGNED BY: Misty Perera RT(R) November 18, 2022 1:45 PM [facility] 11-18-2022 History of Presen t illness [...] Corey Sloan MD documented in this encounter [facility] 11-08-2022 Note HNO ID: [id number] Author: Dayami Castaneda APRN.FPGA DESIGN ENGINEER Service: ? Author Type: Nurse Practitioner Type: [...] normal. Neck: Rivera (more content not included)... [facility] 11-08-2022 Instructions Dayami Castaneda APRN.JOSE - 11/08/2022 11:45 AM EDT Have your labs drawn. Schedule your thyroid ultrasound. Schedule your abdominal ultrasound. Have your chest xray and hip xrays done. documented in this encounter [facility] 11-08-2022 History of Presen t illness [...] diet of 1000 mg/day for under 50, 1721-9318 mg/day for 50+ - Follow up for [...] Z13.220 - LIPID PANEL BASIC Dayami Castaneda APRN.FPGA DESIGN ENGINEER documented in this encounter [facility] 10-24-2022 Note HNO ID: [id number] Author: Rabia Romero APRN.FPGA DESIGN ENGINEER Service: ? Author Type: Nurse Practitioner Type: [...] L4 SAB1 IAB0 Ectopic0 Multiple0 Live Births4 Drier Belt Conveyor History LMP: 09/27/2022 (Exact Date), Implant Age at Menarche: Age at First : Age at Menopause: Drier Belt Conveyor History Comments: Sexual Activity: Yes; Male; Nexplanon [...] PELVIC: external gen (more content not included)... [facility] 10-24-2022 History of Presen t illness [...] L4 SAB1 IAB0 Ectopic0 Multiple0 Live Births4 Drier Belt Conveyor History LMP: 09/27/2022 (Exact Date), Implant Age at Menarche: Age at First : Age at Menopause: Drier Belt Conveyor History Comments: Sexual Activity: Yes; Male; Nexplanon [...] external genitalia normal, normal Bartholin's glands, urethra, Zemple's glands, no vulvar lesions, no cervical lesions, [...] Rabia Romero APRN.JOSE documented in this encounter [facility] 06-25-2022 Note HNO ID: [id number] Author: Cody Cortes Service: ? Author Type: ? Type: Progress Notes Filed: 06/25/2022 4:21 PM Note Text: POPULATION HEALTH NAVIGATION OUTREACH Action/FYI RP Outreach: Patient Declined KINZA consult. Patient Identified by Name and : YES, via [employer] Outreach Outcome/Action Spoke to patient / parent / legal guardian: Patient declined Did you use a PCP flex slot to schedule this appointment? No Reason for Outreach Care Gap or Scheduling/Wellness visits Payer: Payor: [place] / Plan: [facility] MEDICAID / Product Type: Medicaid / Care Gap Reviewed:: ORQ Reminder: Reminder note to check Health Maintenance for items below Health Maintenance items due: HEPATITIS B(1 of 3 - 3-dose series) Never done COVID-19 VACCINE(1) Never done DEPRESSION ASSESSMENT Never done Navigation Signature: Cody Cortes June 25, 2022 4:21 PM [facility] 06-25-2022 History of Presen t illness Narrative POPULATION HEALTH NAVIGATION OUTREACH Action/FYI RP Outreach: Patient Declined KINZA consult. Patient Identified by Name and : YES, via [employer] Outreach Outcome/Action Spoke to patient / parent / legal guardian: Patient declined Did you use a PCP flex slot to schedule this appointment? No Reason for Outreach Care Gap or Scheduling/Wellness visits Payer: Payor: [place] / Plan: [facility] MEDICAID / Product Type: Medicaid / Care Gap Reviewed:: ORQ Reminder: Reminder note to check Health Maintenance for items below Health Maintenance items due: HEPATITIS B(1 of 3 - 3-dose series) Never done COVID-19 VACCINE(1) Never done DEPRESSION ASSESSMENT Never done Navigation Signature: Cody Cortes June 25, 2022 4:21 PM documented in this encounter [facility] 06-25-2022 Note Patient Outreach (RE FPHY) FADIA PINEDA ([id number]) 1985 F Date Time Provider Department 06/25/22 NO PCP (HISTORICAL) REFPHY During your visit today, we recorded the following information about you: Cody Cortes 06/25/2022 4:21 PM Signed POPULATION HEALTH NAVIGATION OUTREACH Action/[facility] RP Outreach: Patient Declined KINZA consult. Patient Identified by Name and : YES, via [facility] Outreach Outcome/Action Spoke to patient / parent / legal guardian: Patient declined Did you use a PCP flex slot to schedule this appointment? No Reason for Outreach Care Gap or Scheduling/Wellness visits Payer: Payor: [place] / Plan: [facility] MEDICAID / Product Type: Medicaid / Care [...] anemia complicating pregnanc (more content not included)... [facility] 06-16-2022 Miscellaneous Notes Patient given results and verbalized understanding of instructions given. Jesica Guo Patient was negative for trichomonas gonorrhea and chlamydia. Patient was positive for bacterial vaginosis and yeast infections neither are an STD. 2 different creams were called in to treat these please have patient black pickler and follow directions on the cream thank you documented in this encounter [facility] 06-15-2022 Note HNO ID: [id number] Author: Radha Humphreys APRN.JOSE Service: ? Author [...] history is provided by the patient. No language instructor was used. Vaginal Problem Review of Systems [...] okay with this care plan. Radha Humphreys APRN.[facility] 06-15-2022 History of Presen t illness Narrative Subjective Patient came in with complaints of vaginal itching. Patient says it started yesterday. Patient denies any other symptoms at this time. Patient's not concerned for an STD but would like STD testing at this time due to symptoms. The history is provided by the patient. No language instructor was used. Vaginal Problem Review of Systems [...] Radha Humphreys APRN.JOSE documented in this encounter [facility] 05-30-2022 Note HNO ID: [id number] Author: RT Jud(R) Service: Radiology Author Type: [...] RT Jud(R) May 30, 2022 9:41 AM [facility] 05-30-2022 Note HNO ID: [id number] Author: Lalo Tovar APRN.FPGA DESIGN ENGINEER Service: ? Author Type: Nurse Practitioner Type: [...] fever and mal (more content not included)... [facility] 05-30-2022 History of Presen t illness [...] of care. This note was generated using [employer] software. It may contain errors in wording, punctuation, or spelling. Lalo Tovar APRN.JOSE documented in this encounter [facility] 02-15-2022 Miscellaneous Notes Pt returned call [...] would recommend an office visit. Dayami Castaneda APRN.JOSE Patient calls to report that she continues [...] Bianka Landeros RN documented in this encounter [facility] 01-01-2022 Tam Block LPN - 01/01/2022 [...] to prevent . documented in this encounter [facility] 01-01-2022 History of Presen t illness Narrative Faida is a 36 year old who presents [...] Care Visit completed when applicable. Rabia Romero APRN.FPGA DESIGN ENGINEER TECHNIQUE: Patient placed in supine position with [...] Nexplanon removed intact without difficulty. Rabia Romero APRN.FPGA DESIGN ENGINEER Fadia is a 36 year old patient who presents for Nexplanon insertion. Patient's last menstrual period was 04/16/2021. VITALS: LMP 04/16/2021 test: n/a Nexplanon lot #: [id number] Exp date: 09/22/2023 TECHNIQUE: Patient placed in [...] the dressing after 24 hours. Rabia Romero APRN.CNP documented in this encounter [facility] 12-25-2021 Miscellaneous Notes Orders signed. Rabia Romero APRN.CNP Patient is scheduled for Nexplanon removal and reinsertion. Please file pending orders. We will then attach to her upcoming appointment. Thank you. Nikki Hunt RN documented in this encounter [facility] 12-10-2021 Instructions Dayami Castaneda APRN.CNP - 12/10/2021 9:55 AM EDT Use the Flexeril for your neck. Let me know if this doesn't improve things. Make sure you are getting plenty of fluids and eating enough. A minimum of 64oz of water daily. Try drinking a [place] when you're out in the heat. Keep a snack with you-granola bar, cheese stick, yogurt, peanut butter crackers-something with some protein in it. Let me know if these episodes of lightheadedness/dizziness don't improve. documented in this encounter [facility] 12-10-2021 History of Presen t illness [...] diet of 1000 mg/day for under 50, 1651-4441 mg/day for 50+ 2. Lightheaded - ICD9: 780.4, ICD10: R42 Suspect dehydration and/or hypoglycemia. Discussed increasing water to minimum of 64oz daily, add [place] for electrolytes. Keep protein snack with her-do not go more than 3 hours without eating. - CBC - COMP METABOLIC PANEL - IRON + TIBC - FERRITIN BLD 3. Dizzy - ICD9: 780.4, ICD10: R42 Suspect dehydration and/or hypoglycemia. Discussed increasing water to minimum of 64oz daily, add [place] for electrolytes. Keep protein snack with her-do [...] Dayami Castaneda APRN.CNP documented in this encounter [facility] 10-09-2021 Miscellaneous Notes Patient called per [...] Patient viewed her pelvic ultrasound results on [facility]. Please review results. Thank you. Nikki Hunt RN documented in this encounter [facility] 10-04-2021 History of Presen t illness Narrative BV positive - metronidazole. 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 Becky Miller MD Positive urine drug screen 03/18/201804/08 Overview: 03/16/18 Positive cannabinoids. Rabia Romero APRN.FPGA DESIGN ENGINEER History of loss in prior , currently [...] approximately 31 weeks for 48 hours in [place]. She was given tocolytics and steroids. Went [...] Overview: Added automatically from request for surgery [id number] Thyromegaly 06/07/2016 03/16/2018 Cyclical vomiting with nausea [...] Overview: August 29, 2011 pt transferred to [place], await detailed report, per [facility] needs 2x/wk NST's, repeat growth u/s in 3 weeks -sm UTI (urinary tract infection) during 0 08/07/2011 11/19/2012 High-risk 07/22/2011 11/19/2012 Overview: Weekly NSTs- growth 12%ile, fu US on 09/19 History of 22 week delivery after cerclage placed at 14 weeks. Subsequent term after. No cerclage last or this Boy on - [place] History of gonorrhea 07/22/2011 11/19/2012 Overview: OMI neg, repeat at 36 weeks Vulvar abscess 04/12/2011 06/24/2011 Chronic pelvic pain in female 10/19/2010 Frequent stools 10/19/2010 06/24/2011 SUPRF HIGH RISK NEC [V23.89] 0 03/05/2010 Abdominal pain, right upper quadrant 05/24/2009 06/24/2011 documented as of this encounter (statuses as of 10/04/2021) [facility] History of Past illness Narrative* Problem Noted Date Resolved Date Antepartum anemia complicating in firs t trimester 04/08/2018 12/07/2018 Overview: Anemia, add fe, check Fe levels. Becky Miller MD Positive urine drug screen 03/18/201804/08 Overview: 03/16/18 Positive cannabinoids. Rabia Romero APRN.FPGA DESIGN ENGINEER History of loss in prior , currently [...] approximately 31 weeks for 48 hours in [place]. She was given tocolytics and steroids. Went [...] Overview: Added automatically from request for surgery [id number] Thyromegaly 06/07/2016 03/16/2018 Cyclical vomiting with nausea [...] Overview: August 29, 2011 pt transferred to [place], await detailed report, per [facility] needs 2x/wk NST's, repeat growth u/s in 3 weeks -sm UTI (urinary tract infection) during 0 08/07/2011 11/19/2012 High-risk 07/22/2011 11/19/2012 Overview: Weekly NSTs- growth 12%ile, fu US on 09/19 History of 22 week delivery after cerclage placed at 14 weeks. Subsequent term after. No cerclage last or this Boy on - [facility] History of gonorrhea 07/22/2011 11/19/2012 Overview: OMI neg, repeat at 36 weeks Vulvar abscess 04/12/2011 06/24/2011 Chronic pelvic pain in female 10/19/2010 Frequent stools 10/19/2010 06/24/2011 SUPRF HIGH RISK NEC [V23.89] 0 03/05/2010 Abdominal pain, right upper quadrant 05/24/2009 06/24/2011 documented as of this encounter (statuses as of 10/05/2021) [facility] of Past illness Narrative* Problem Noted Date Resolved Date Antepartum anemia complicating in firs t trimester 04/08/2018 12/07/2018 Overview: Anemia, add fe, check Fe levels. Becky Miller MD Positive urine drug screen 03/18/201804/08 Overview: 03/16/18 Positive cannabinoids. Rabia Romero APRN.FPGA DESIGN ENGINEER History of loss in prior , currently [...] approximately 31 weeks for 48 hours in [place]. She was given tocolytics and steroids. Went [...] and treated by a psychiatrist at [facility]. She was only on medication 2-3 [...] Overview: Added automatically from request for surgery [id number] Thyromegaly 06/07/2016 03/16/2018 Cyclical vomiting with nausea [...] Overview: August 29, 2011 pt transferred to [place], await detailed report, per [facility] needs 2x/wk NST's, repeat growth u/s in 3 weeks -sm UTI (urinary tract infection) during 0 08/07/2011 11/19/2012 High-risk 07/22/2011 11/19/2012 Overview: Weekly NSTs- growth 12%ile, fu US on 09/19 History of 22 week delivery after cerclage placed at 14 weeks. Subsequent term after. [facility] History of gonorrhea 07/22/2011 11/19/2012 Overview: OMI neg, repeat at 36 weeks Vulvar abscess 04/12/2011 06/24/2011 Chronic pelvic pain in female 10/19/2010 Frequent stools 10/19/2010 06/24/2011 SUPRF HIGH RISK NEC [V23.89] 0 03/05/2010 Abdominal pain, right upper quadrant 05/24/2009 06/24/2011 documented as of this encounter (statuses as of 10/09/2021) [facility] of Past illness Narrative* Problem Noted Date Resolved Date Antepartum anemia complicating in firs t trimester 04/08/2018 12/07/2018 Overview: Anemia, add fe, check Fe levels. Becky Miller MD Positive urine drug screen 03/18/201804/08 Overview: 03/16/18 Positive cannabinoids. Rabia Romero APRN.FPGA DESIGN ENGINEER History of loss in prior , currently [...] approximately 31 weeks for 48 hours in [place]. She was given tocolytics and steroids. Went [...] Overview: Added automatically from request for surgery [id number] Thyromegaly 06/07/2016 03/16/2018 Cyclical vomiting with nausea [...] Overview: August 29, 2011 pt transferred to [place], await detailed report, per [facility] needs 2x/wk [...] of this encounter (statuses as of 12/10/2021) [facility] of Past illness Narrative* Problem Noted Date Resolved Date Antepartum anemia complicating in firs t trimester 04/08/2018 12/07/2018 Overview: Anemia, add fe, check Fe levels. Becky Miller MD Positive urine drug screen 03/18/201804/08 Overview: 03/16/18 Positive cannabinoids. Rabia Romero, UTILITY SALES REPRESENTATIVE.FPGA DESIGN ENGINEER History of loss in prior , currently [...] approximately 31 weeks for 48 hours in [place]. She was given tocolytics and steroids. Went [...] and treated by a psychiatrist at [facility]. She was only on medication 2-3 [...] Overview: Added automatically from request for surgery [id number] Thyromegaly 06/07/2016 03/16/2018 Cyclical vomiting with nausea [...] Overview: August 29, 2011 pt transferred to [place], await detailed report, per [facility] needs 2x/wk NST's, repeat growth u/s in 3 weeks -sm UTI (urinary tract infection) during 0 08/07/2011 11/19/2012 High-risk 07/22/2011 11/19/2012 Overview: Weekly NSTs- growth 12%ile, fu US on 09/19 History of 22 week delivery after cerclage placed at 14 weeks. Subsequent term after. No cerclage last or this Boy on US- [facility] History of gonorrhea 07/22/2011 11/19/2012 Overview: OMI neg, repeat at 36 weeks Vulvar abscess 04/12/2011 06/24/2011 Chronic pelvic pain in female 10/19/2010 Frequent stools 10/19/2010 06/24/2011 SUPRF HIGH RISK NEC [V23.89] 0 03/05/2010 Abdominal pain, right upper quadrant 05/24/2009 06/24/2011 documented as of this encounter (statuses as of 12/25/2021) [facility] of Past illness Narrative* Problem Noted Date Resolved Date Antepartum anemia complicating in firs t trimester 04/08/2018 12/07/2018 Overview: Anemia, add fe, check Fe levels. Becky Miller MD Positive urine drug screen 03/18/201804/08 Overview: 03/16/18 Positive cannabinoids. Rabia Romero APRN.FPGA DESIGN ENGINEER History of loss in prior , currently [...] approximately 31 weeks for 48 hours in [place]. She was given tocolytics and steroids. Went [...] Overview: Added automatically from request for surgery [id number] Thyromegaly 06/07/2016 03/16/2018 Cyclical vomiting with nausea [...] Overview: August 29, 2011 pt transferred to [place], await detailed report, per [facility] needs 2x/wk [...] of this encounter (statuses as of 01/01/2022) [facility] of Past illness Narrative* Problem Noted Date Resolved Date Antepartum anemia complicating in firs t trimester 04/08/2018 12/07/2018 Overview: Anemia, add fe, check Fe levels. Becky Miller MD Positive urine drug screen 03/18/201804/08 Overview: 03/16/18 Positive cannabinoids. Rabia Romero, UTILITY SALES REPRESENTATIVE.FPGA DESIGN ENGINEER History of loss in prior , currently [...] approximately 31 weeks for 48 hours in [place]. She was given tocolytics and steroids. Went [...] Overview: Added automatically from request for surgery [id number] Thyromegaly 06/07/2016 03/16/2018 Cyclical vomiting with nausea [...] Overview: August 29, 2011 pt transferred to [place], await detailed report, per [facility] needs 2x/wk NST's, repeat growth u/s in 3 weeks -sm UTI (urinary tract infection) during 0 08/07/2011 11/19/2012 High-risk 07/22/2011 11/19/2012 Overview: Weekly NSTs- growth 12%ile, fu US on 09/19 History of 22 week delivery after cerclage placed at 14 weeks. Subsequent term after. No cerclage last or this Boy on US- [facility] History of gonorrhea 07/22/2011 11/19/2012 Overview: OMI neg, repeat at 36 weeks Vulvar abscess 04/12/2011 06/24/2011 Chronic pelvic pain in female 10/19/2010 Frequent stools 10/19/2010 06/24/2011 SUPRF HIGH RISK NEC [V23.89] 0 03/05/2010 Abdominal pain, right upper quadrant 05/24/2009 06/24/2011 documented as of this encounter (statuses as of 02/15/2022) [facility] of Past illness Narrative* Problem Noted Date Resolved Date Antepartum anemia complicating in firs t trimester 04/08/2018 12/07/2018 Overview: Anemia, add fe, check Fe levels. Becky Miller MD Positive urine drug screen 03/18/201804/08 Overview: 03/16/18 Positive cannabinoids. Rabia Romero APRN.FPGA DESIGN ENGINEER History of loss in prior , currently [...] approximately 31 weeks for 48 hours in [place]. She was given tocolytics and steroids. Went [...] Overview: Added automatically from request for surgery [id number] Thyromegaly 06/07/2016 03/16/2018 Cyclical vomiting with nausea [...] Overview: August 29, 2011 pt transferred to [place], await detailed report, per [facility] needs 2x/wk NST's, repeat growth u/s in 3 weeks -sm UTI (urinary tract infection) during 0 08/07/2011 11/19/2012 High-risk 07/22/2011 11/19/2012 Overview: Weekly NSTs- growth 12%ile, fu US on 09/19 History of 22 week delivery after cerclage placed at 14 weeks. Subsequent term after. No cerclage last or this [place] - [place] History of gonorrhea 07/22/2011 11/19/2012 Overview: OMI neg, repeat at 36 weeks Vulvar abscess 04/12/2011 06/24/2011 Chronic pelvic pain in female 10/19/2010 Frequent stools 10/19/2010 06/24/2011 SUPRF HIGH RISK NEC [V23.89] 0 03/05/2010 Abdominal pain, right upper quadrant 05/24/2009 06/24/2011 documented as of this encounter (statuses as of 05/30/2022) [facility] Narrative* Problem Noted Date Resolved Date Antepartum anemia complicating in firs t trimester 04/08/2018 12/07/2018 Overview: Anemia, add fe, check Fe levels. Becky Miller MD Positive urine drug screen 03/18/201804/08 Overview: 03/16/18 Positive cannabinoids. Rabia Romero APRN.FPGA DESIGN ENGINEER History of loss in prior , currently [...] approximately 31 weeks for 48 hours in [place]. She was given tocolytics and steroids. Went [...] Overview: Added automatically from request for surgery [id number] Thyromegaly 06/07/2016 03/16/2018 Cyclical vomiting with nausea [...] Overview: August 29, 2011 pt transferred to [place], await detailed report, per [facility] needs 2x/wk NST's, repeat growth u/s in 3 weeks -sm UTI (urinary tract infection) during 0 08/07/2011 11/19/2012 High-risk 07/22/2011 11/19/2012 Overview: Weekly NSTs- growth 12%ile, fu US on 09/19 History of 22 week delivery after cerclage placed at 14 weeks. Subsequent term after. No cerclage last or this Boy on - [facility] History of gonorrhea 07/22/2011 11/19/2012 Overview: OMI neg, repeat at 36 weeks Vulvar abscess 04/12/2011 06/24/2011 Chronic pelvic pain in female 10/19/2010 Frequent stools 10/19/2010 06/24/2011 SUPRF HIGH RISK NEC [V23.89] 0 03/05/2010 Abdominal pain, right upper quadrant 05/24/2009 06/24/2011 documented as of this encounter (statuses as of 06/15/2022) [facility] Narrative* Problem Noted Date Resolved Date Antepartum anemia complicating in firs t trimester 04/08/2018 12/07/2018 Overview: Anemia, add fe, check Fe levels. Becky Miller MD Positive urine drug screen 03/18/201804/08 Overview: 03/16/18 Positive cannabinoids. Rabia Romero, UTILITY SALES REPRESENTATIVE.FPGA DESIGN ENGINEER History of loss in prior , currently [...] approximately 31 weeks for 48 hours in [place]. She was given tocolytics and steroids. Went [...] and treated by a psychiatrist at [facility]. She was only on medication 2-3 [...] Overview: Added automatically from request for surgery [id number] Thyromegaly 06/07/2016 03/16/2018 Cyclical vomiting with nausea [...] Overview: August 29, 2011 pt transferred to [place], await detailed report, per [facility] needs 2x/wk NST's, repeat growth u/s in 3 weeks -sm UTI (urinary tract infection) during 0 08/07/2011 11/19/2012 High-risk 07/22/2011 11/19/2012 Overview: Weekly NSTs- growth 12%ile, fu US on 09/19 History of 22 week delivery after cerclage placed at 14 weeks. Subsequent term after. No cerclage last or this Boy on - [place] History of gonorrhea 07/22/2011 11/19/2012 Overview: OMI neg, repeat at 36 weeks Vulvar abscess 04/12/2011 06/24/2011 Chronic pelvic pain in female 10/19/2010 Frequent stools 10/19/2010 06/24/2011 SUPRF HIGH RISK NEC [V23.89] 0 03/05/2010 Abdominal pain, right upper quadrant 05/24/2009 06/24/2011 documented as of this encounter (statuses as of 06/16/2022) [facility] Narrative* Problem Noted Date Resolved Date Antepartum anemia complicating in firs t trimester 04/08/2018 12/07/2018 Overview: Anemia, add fe, check Fe levels. Becky Miller MD Positive urine drug screen 03/18/201804/08 Overview: 12/24/18 Positive cannabinoids. Rabia Romero APRN.FPGA DESIGN ENGINEER History of loss in prior , currently [...] approximately 31 weeks for 48 hours in [place]. She was given tocolytics and steroids. Went [...] Overview: Added automatically from request for surgery [id number] Thyromegaly 06/07/2016 03/16/2018 Cyclical vomiting with nausea [...] Overview: August 29, 2011 pt transferred to [place], await detailed report, per [facility] needs 2x/wk [...] of this encounter (statuses as of 06/26/2022) [facility] Narrative* Problem Noted Date Diagnosed Date Resolved Date Antepartum anemia complicati ng in first trimester 04/08/2018 12/07/2018 Overview: Anemia, add fe, check Fe levels. Becky Miller MD Positive urine drug screen 03/18/2018 0 04/08/2018 Overview: 03/16/18 Positive cannabinoids. Rabia Romero APRN.FPGA DESIGN ENGINEER History of loss in prior , currently [...] approximately 31 weeks for 48 hours in [place]. She was given tocolytics and steroids. Went [...] and treated by a psychiatrist at [facility]. She was only on medication 2-3 [...] Overview: Added automatically from request for surgery [id number] Thyromegaly 06/07/2016 03/16/2018 Cyclical vomiting with nausea [...] Overview: August 29, 2011 pt transferred to [place], await detailed report, per [facility] needs 2x/wk NST's, repeat growth u/s in 3 weeks -sm UTI (urinary tract infection ) during 08/07/2011 11/19/2012 High-risk 07/22/2011 11/20/19 13 Overview: Weekly NSTs- growth 12%ile, fu US on 09/19 History of 22 week delivery after cerclage placed at 14 weeks. Subsequent term after. No cerclage last or this Boy on - [facility] History of gonorrhea 07/22/2011 013 Overview: OMI neg, repeat at 36 weeks Vulvar abscess 04/12/2011 06/24/2011 Chronic pelvic pain in female 10/19/2010 06/24/2011 Frequent stools 10/19/2010 06/24/2011 SUPRF HIGH RISK NEC [V23.89] 11/02/2009 03/05/2010 Abdominal pain, right upper quadrant 05/24/2009 06/24/2011 documented as of this encounter (statuses as of 10/24/2022) [facility] Narrative* Problem Noted Date Diagnosed Date Resolved Date Antepartum anemia complicati ng in first trimester 04/08/2018 12/07/2018 Overview: Anemia, add fe, check Fe levels. Becky Miller MD Positive urine drug screen 03/18/2018 0 04/08/2018 Overview: 03/16/18 Positive cannabinoids. Rabia Romero APRN.FPGA DESIGN ENGINEER History of loss in prior , currently [...] approximately 31 weeks for 48 hours in [place]. She was given tocolytics and steroids. Went [...] Overview: Added automatically from request for surgery [id number] Thyromegaly 06/07/2016 03/16/2018 Cyclical vomiting with nausea [...] Overview: August 29, 2011 pt transferred to [place], await detailed report, per M needs 2x/wk [...] of this encounter (statuses as of 11/12/2022) [facility] Narrative* Problem Noted Date Diagnosed Date Resolved Date Antepartum anemia complicati ng in first trimester 04/08/2018 12/07/2018 Overview: Anemia, add fe, check Fe levels. Becky Miller MD Positive urine drug screen 03/18/2018 0 04/08/2018 Overview: 03/16/18 Positive cannabinoids. Rabia Romero APRN.FPGA DESIGN ENGINEER History of loss in prior , currently [...] approximately 31 weeks for 48 hours in [place]. She was given tocolytics and steroids. Went [...] Overview: Added automatically from request for surgery [id number] Thyromegaly 06/07/2016 03/16/2018 Cyclical vomiting with nausea [...] Overview: August 29, 2011 pt transferred to [place], await detailed report, per [facility] needs 2x/wk NST's, repeat growth u/s in 3 weeks -sm UTI (urinary tract infection ) during 08/07/2011 11/19/2012 High-risk 07/22/2011 11/20/19 13 Overview: Weekly NSTs- growth 12%ile, fu US on 09/19 History of 22 week delivery after cerclage placed at 14 weeks. Subsequent term after. No cerclage last or this Boy on - [facility] History of gonorrhea 07/22/2011 013 Overview: OMI neg, repeat at 36 weeks Vulvar abscess 04/12/2011 06/24/2011 Chronic pelvic pain in female 10/19/2010 06/24/2011 Frequent stools 10/19/2010 06/24/2011 SUPRF HIGH RISK NEC [V23.89] 11/02/2009 03/05/2010 Abdominal pain, right upper quadrant 05/24/2009 06/24/2011 documented as of this encounter (statuses as of 11/19/2022) [facility] Narrative* Problem Noted Date Diagnosed Date Resolved Date Antepartum anemia complicati ng in first trimester 04/08/2018 12/07/2018 Overview: Anemia, add fe, check Fe levels. Becky Miller MD Positive urine drug screen 03/18/2018 0 04/08/2018 Overview: 03/16/18 Positive cannabinoids. Rabia Romero APRN.FPGA DESIGN ENGINEER History of loss in prior , currently [...] approximately 31 weeks for 48 hours in [place]. She was given tocolytics and steroids. Went [...] Overview: Added automatically from request for surgery [id number] Thyromegaly 06/07/2016 03/16/2018 Cyclical vomiting with nausea [...] Overview: August 29, 2011 pt transferred to [place], await detailed report, per [facility] needs 2x/wk [...] of this encounter (statuses as of 11/20/2022) [facility] Narrative* Problem Noted Date Diagnosed Date Resolved Date Antepartum anemia complicati ng in first trimester 04/08/2018 12/07/2018 Overview: Anemia, add fe, check Fe levels. Becky Miller MD Positive urine drug screen 03/18/2018 0 04/08/2018 Overview: 03/16/18 Positive cannabinoids. Rabia Romero APRN.FPGA DESIGN ENGINEER History of loss in prior , currently [...] approximately 31 weeks for 48 hours in [place]. She was given tocolytics and steroids. Went [...] and treated by a psychiatrist at [facility]. She was only on medication 2-3 [...] Overview: Added automatically from request for surgery [id number] Thyromegaly 06/07/2016 03/16/2018 Cyclical vomiting with nausea [...] Overview: August 29, 2011 pt transferred to [place], await detailed report, per [facility] needs 2x/wk NST's, repeat growth u/s in 3 weeks -sm UTI (urinary tract infection ) during 08/07/2011 11/19/2012 High-risk 07/22/2011 11/20/19 13 Overview: Weekly NSTs- growth 12%ile, fu US on 09/19 History of 22 week delivery after cerclage placed at 14 weeks. Subsequent term after. No cerclage last or this Boy on [place]- [facility] History of gonorrhea 07/22/2011 013 Overview: OMI neg, repeat at 36 weeks Vulvar abscess 04/12/2011 06/24/2011 Chronic pelvic pain in female 10/19/2010 06/24/2011 Frequent stools 10/19/2010 06/24/2011 SUPRF HIGH RISK NEC [V23.89] 11/02/2009 03/05/2010 Abdominal pain, right upper quadrant 05/24/2009 06/24/2011 documented as of this encounter (statuses as of 01/26/2023) [facility] Narrative* Problem Noted Date Diagnosed Date Resolved Date Antepartum anemia complicati ng in first trimester 04/08/2018 12/07/2018 Overview: Anemia, add fe, check Fe levels. Becky Miller MD Positive urine drug screen 03/18/2018 0 04/08/2018 Overview: 03/16/18 Positive cannabinoids. Rabia Romero, UTILITY SALES REPRESENTATIVE.FPGA DESIGN ENGINEER History of loss in prior , currently [...] approximately 31 weeks for 48 hours in [place]. She was given tocolytics and steroids. Went [...] and treated by a psychiatrist at [facility]. She was only on medication 2-3 [...] Overview: Added automatically from request for surgery [id number] Thyromegaly 06/07/2016 03/16/2018 Cyclical vomiting with nausea 06/07/2016 03/16/2018 History of loss 07/18/20142018 Overview: History of loss at 22 weeks, cerclage had been placed due to shortening at 14 High-risk 07/18/2014 03/21/20 15 Overview: Boy on - [place] Nausea/vomiting in 07/18/2014 03/21/2015 Dorsal wrist ganglion 11/13/20122012 Small for gestational age fe tus affecting mother, antepartum 09/16/2011 11/19/2012 Overview: 09/16- Last growth us 36%ile Threatened labor 08/26/2011 Overview: August 29, 2011 pt transferred to [place], await detailed report, per [facility] needs 2x/wk NST's, repeat growth u/s in 3 weeks -sm UTI (urinary tract infection ) during 08/07/2011 11/19/2012 High-risk 07/22/2011 11/20/19 13 Overview: Weekly NSTs- growth 12%ile, fu US on 09/19 History of 22 week delivery after cerclage placed at 14 weeks. Subsequent term after. No cerclage last or this [facility] on - [facility] History of gonorrhea 07/22/2011 013 Overview: OMI neg, repeat at 36 weeks Vulvar abscess 04/12/2011 06/24/2011 Chronic pelvic pain in female 10/19/2010 06/24/2011 Frequent stools 10/19/2010 06/24/2011 SUPRF HIGH RISK NEC [V23.89] 11/02/2009 03/05/2010 Abdominal pain, right upper quadrant 05/24/2009 06/24/2011 documented as of this encounter (statuses as of 01/26/2023) [facility] History of Past illness Narrative* Problem Noted Date Diagnosed Date Resolved Date Antepartum anemia complicati ng in first trimester 04/08/2018 12/07/2018 Overview: Anemia, add fe, check Fe levels. Becky Miller MD Positive urine drug screen 03/18/2018 0 04/08/2018 Overview: 03/16/18 Positive cannabinoids. Rabia Romero APRN.FPGA DESIGN ENGINEER History of loss in prior , currently [...] approximately 31 weeks for 48 hours in [place]. She was given tocolytics and steroids. Went [...] Overview: Added automatically from request for surgery [id number] Thyromegaly 06/07/2016 03/16/2018 Cyclical vomiting with nausea [...] Overview: August 29, 2011 pt transferred to [place], await detailed report, per MFM needs 2x/wk NST's, repeat growth u/s in 3 weeks -sm UTI (urinary tract infection ) during 08/07/2011 11/19/2012 High-risk 07/22/2011 11/20/19 13 Overview: Weekly NSTs- growth 12%ile, fu US on 09/19 History of 22 week delivery after cerclage placed at 14 weeks. Subsequent term after. No cerclage last or this Boy on [facility] History of gonorrhea 07/22/2011 013 Overview: OMI neg, repeat at 36 weeks Vulvar abscess 04/12/2011 06/24/2011 Chronic pelvic pain in female 10/19/2010 06/24/2011 Frequent stools 10/19/2010 06/24/2011 SUPRF HIGH RISK NEC [V23.89] 11/02/2009 03/05/2010 Abdominal pain, right upper quadrant 05/24/2009 06/24/2011 documented as of this encounter (statuses as of 05/09/2023) [facility] [place] [facility] Diagnosis Encounter for gynecological examination with abnormal finding- Primary Routine gynecological examination Pelvic pain in female Unspecified symptom associated with female genital organs Deep dyspareunia Vaginal discharge Leukorrhea, not specified as infective Irritable bowel syndrome with both constipation and diarrhea [facility] Diagnosis BV (bacterial vaginosis)- Primary Vaginitis and vulvovaginitis, unspecified [facility] Diagnosis Pelvic pain in female- [...] for lipid disorders [facility] Diagnosis 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 documented [facility] this encounter [facility] [place] [facility] Diagnosis Need for vaccination- Primary Need for prophylactic vaccination and inoculation against unspecified single disease documented [facility] this encounter [facility] [place] [facility] Diagnosis Mastalgia Mastodynia Mass of left breast, unspecified quadrant documented [facility] encounter [facility] [place] [facility] Diagnosis Thyroid goiter Goiter, unspecified documented in this encounter [facility] for referral (narrative)* Outpatient Procedure (Routine) - Authorized Specialty Diagnoses / Procedures Referred By Crow holland Referred To Contact [facility] Diagnoses Encounter for removal and reinsertion of Nexplanon Encounter for initial prescription of implantable subdermal contraceptive Procedures NEXPLANON INSERTION ETONOGESTREL IMPLANT SYSTEM INSERT DRUG IMPLANT DEVICE REMOVAL NON-BIODEGRADABLE DRUG DELIVERY IMPLANT Rabia Romero APRN.FPGA DESIGN ENGINEER [address] [place] [id number] [place] [id number][x] [place] [address] Referral ID Status Reason Start Date Expiration Date Visits Requested Visits Authorized [id number] Authorized Auto-Generat ed Referral 12/25/2021 03/23/2022 2 2 * Outpatient Procedure (Routine) - Closed Specialty Diagnoses / Procedures Referred By Crow holland Referred To Contact [facility] Diagnoses Encounter for removal and reinsertion of Nexplanon Procedures NEXPLANON REMOVAL REMOVAL NON-BIODEGRADABLE DRUG DELIVERY IMPLANT Rabia Romero APRN.CNP [address] [place] [address] [place] [address] [place] [id number] Referral ID Status Reason Start Date Expiration Date V isits Requested Visits Authorized [id number] Closed Auto-Generate d Referral 12/25/2021 12/24/2022 1 1 [facility] for referral (narrative)* Outpatient Procedure (Routine) - Pending Review Specialty Diagnoses / Procedures Referred By Crow holland Referred To Contact [facility] Diagnoses Encounter for removal and reinsertion of Nexplanon Procedures NEXPLANON INSERTION ETONOGESTREL IMPLANT SYSTEM INSERT DRUG IMPLANT DEVICE Rabia Romero APRN.FPGA DESIGN ENGINEER [address] [place] [address] [facility] [address] [place] [address] Referral ID Status Reason Start Date Expiration Date Visits Requested Visits Authorized [id number] Pending Review Auto-Generat ed Referral 2 01/01/2023 1 1 [facility] for referral (narrative)* Diagnostic Procedure Only (Routine) - Authorized Specialty Diagnoses / Procedures Referred By Crow holland Referred To Contact [facility] Diagnoses Mastalgia Mass of left breast, unspecified quadrant Procedures KATHARINE DIAGNOSTIC BILATERAL DIAGNOSTIC MAMMOGRAPHY COMPUTER-AIDED DETCJ BI Rabia Romero APRN.FPGA DESIGN ENGINEER [address] [place] [address] [facility] [address] [place] [address] Referral ID Status Reason Start Date Expiration Date Visits Requested Visits Authorized [id number] Authorized Auto-Generat ed Referral 10/24/2022 11/23/2023 1 1 * Diagnostic Procedure Only (Routine) - Authorized Specialty Diagnoses / Procedures Referred By Crow holland Referred To Contact [facility] Diagnoses Mastalgia Mass of left breast, unspecified quadrant Procedures US BREAST LTD LEFT US BREAST UNI REAL TIME WITH IMAGE LIMITED Rabia Romero APRN.FPGA DESIGN ENGINEER [address] [place] [address] [facility] [address] [place] [address] Referral ID Status Reason Start Date Expiration Date Visits Requested Visits Authorized [id number] Authorized Auto-Generat ed Referral 10/24/2022 11/23/2023 1 1 [facility] for referral (narrative)* Diagnostic Procedure Only (Routine) - Pending Review Specialty Diagnoses / Procedures Referred By Contac t Referred To Contact [facility] Diagnoses Muscle spasm Generalized abdominal pain Pain of right hip Procedures US ABDOMEN COMPLETE US ABDOMINAL REAL TIME W/IMAGE DOCUMENTATION Dayami Castaneda APRN.FPGA DESIGN ENGINEER [address] [place] [address] [place] [address] Referral ID Status Reason Start Date Expiration Date Visits Requested Visits Authorized [id number] Pending Review Auto-Generat ed Referral 11/08/2022 12/08/2023 1 1 * Diagnostic Procedure Only (Routine) - Pending Review Specialty Diagnoses / Procedures Referred By Contac t Referred To Contact [facility] Diagnoses Muscle spasm Pain of right hip Procedures XR HIP BILATERAL 5V PEL/AP/LAT EACH HIP RADEX HIPS BILATERAL WITH PELVIS MINIMUM 5 VIEWS Dayami Castaneda APRN.FPGA DESIGN ENGINEER [address] [place] [address] [place] [address] Referral ID Status Reason Start Date Expiration Date Visits Requested Visits Authorized [id number] Pending Review Auto-Generat ed Referral 11/08/2022 12/08/2023 1 1 * Diagnostic Procedure Only (Routine) - Pending Review Specialty Diagnoses / Procedures Referred By Contac t Referred To Contact [facility] Diagnoses Muscle spasm Procedures US ABD RIGHT UPPER QUADRANT US ABDOMINAL REAL TIME W/IMAGE LIMITED Dayami Castaneda APRN.FPGA DESIGN ENGINEER [address] [place] [address] [place] [address] Referral ID Status Reason Start Date Expiration Date Visits Requested Visits Authorized [id number] Pending Review Auto-Generat ed Referral 11/08/2022 12/08/2023 1 1 [facility] for referral (narrative)* Diagnostic Procedure Only (Routine) - Closed Specialty Diagnoses / Procedures Referred By Contac t Referred To Contact [facility] Diagnoses Mastalgia Mass of left breast, unspecified quadrant Procedures US BREAST LTD LEFT US BREAST UNI REAL TIME WITH IMAGE LIMITED Rabia Romero APRN.FPGA DESIGN ENGINEER [address] [place] [address] [facility] [address] [place] [address] Referral ID Status Reason Start Date Expiration Date V isits Requested Visits Authorized [id number] Closed Auto-Generate d Referral 10/24/2022 11/23/2023 1 1 [facility] for referral (narrative)* Diagnostic Procedure Only (Routine) - Closed Specialty Diagnoses / Procedures Referred By Contac t Referred To Contact [facility] Diagnoses Thyroid goiter Procedures US THYROID/PARATHYROID US SOFT TISSUE HEAD & NECK REAL TIME IMGE Jhonny Jett APRN.FPGA DESIGN ENGINEER [address] [place] [address] [place] [address] Referral ID Status Reason Start Date Expiration Date V isits Requested Visits Authorized [id number] Closed Auto-Generate d Referral 11/15/2022 12/15/2023 1 1 [facility] Reason for Referral Specialty Diagnoses / Procedures Referred By Contac t Referred To Contact Gastroenterology Diagnoses Irritable bowel syndrome with both constipation and diarrhea Procedures CONSULT TO GASTROENTEROLOGY OFFICE/OUTPATIENT [facility] 60-74 MINUTES Rabia Romero APRN.FPGA DESIGN ENGINEER [address] [place] [address] Referral ID Status Reason Start Date Expiration Date Visits Requested Visits Authorized [id number] Authorized PCP Requested Referral 10/03/2021 10/03/2022 1 1 Specialty Diagnoses / Procedures Referred By Contac t Referred To Contact [facility] Diagnoses Pelvic pain in female Deep dyspareunia Procedures PELVIC US WHI US PELVIC NONOBSTETRIC REAL-TIME IMAGE COMPLETE Rabia Romero UTILITY SALES REPRESENTATIVE.FPGA DESIGN ENGINEER [address] [place] [address] [facility] [address] [place] [address] Referral ID Status Reason Start Date Expiration Date Visits Requested Visits Authorized [id number] Authorized Auto-Generat ed Referral 10/03/2021 10/03/2022 1 1 Specialty Diagnoses / Procedures Referred By Contac t Referred To Contact Orthopedics Diagnoses Wrist pain, acute, left Procedures CONSULT TO ORTHOPAEDICS OFFICE/OUTPATIENT [facility] 60-74 MINUTES Lalo Tovar, UTILITY SALES REPRESENTATIVE.FPGA DESIGN ENGINEER [address] [place] [address] Referral ID Status Reason Start Date Expiration Date Visits Requested Visits Authorized [id number] Authorized PCP Requested Referral 05/30/2022 05/30/2023 1 1 Specialty Diagnoses / Procedures Referred By Contac t Referred To Contact X[facility]AGING Diagnoses Wrist pain, acute, left Procedures XR WRIST INJURY 4V PA/LAT/OBL/SCAPH LEFT RADEX WRIST COMPLETE MINIMUM 3 VIEWS Lalo Tovar, UTILITY SALES REPRESENTATIVE.FPGA DESIGN ENGINEER [address] [place] [address] [facility] Referral ID Status Reason Start Date Expiration Date V isits Requested Visits Authorized [id number] Closed Auto-Generate d Referral 05/30/2022 06/29/2023 1 1 Advance Directives No Advanced Directives Records FoundDocuments on File Type Date Recorded 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 Advance Directive(s) 01/19/2018 11:36 AM Documents on File Type Date Recorded 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 Advance Directive(s) 01/19/2018 11:36 AM [...] or prosecute any alcohol or drug abuse patient.[facility] the event this information is protected by the Federal Confidentiality of Alcohol and Drug Abuse Patient Records regulations: The Federal rules restrict any use of the information to criminally investigate or prosecute any alcohol or drug abuse patient.[facility] the event this information is protected by the Federal Confidentiality of Alcohol and Drug Abuse Patient Records regulations: The Federal rules restrict any use of the information to criminally investigate or prosecute any alcohol or drug abuse patient.[facility] the event this information is protected by the Federal Confidentiality of Alcohol and Drug Abuse Patient Records regulations: The Federal rules restrict any use of the information to criminally investigate or prosecute any alcohol or drug abuse patient.[facility] the event this information is protected by the Federal Confidentiality of Alcohol and Drug Abuse Patient Records regulations: The Federal rules restrict any use of the information to criminally investigate or prosecute any alcohol or drug abuse patient.[facility] the event this information is protected by the Federal Confidentiality of Alcohol and Drug Abuse Patient Records regulations: The Federal rules restrict any use of the information to criminally investigate or prosecute any alcohol or drug abuse patient.[facility] Hospital[facility] the event this information is protected by the Federal Confidentiality of Alcohol and Drug Abuse Patient Records regulations: The Federal rules restrict any use of the information to criminally investigate or prosecute any alcohol or drug abuse patient.[facility] the event this information is protected by the Federal Confidentiality of Alcohol and Drug Abuse Patient Records regulations: The Federal rules restrict any use of the information to criminally investigate or prosecute any alcohol or drug abuse patient.[facility] Hospital[facility] the event this information is protected by the Federal Confidentiality of Alcohol and Drug Abuse Patient Records regulations: The Federal rules restrict any use of the information to criminally investigate or prosecute any alcohol or drug abuse patient.[facility] Hospital[facility] the event this information is protected by the Federal Confidentiality of Alcohol and Drug Abuse Patient Records regulations: The Federal rules restrict any use of the information to criminally investigate or prosecute any alcohol or drug abuse patient.[facility] the event this information is protected by the Federal Confidentiality of Alcohol and Drug Abuse Patient Records regulations: The Federal rules restrict any use of the information to criminally investigate or prosecute any alcohol or drug abuse patient.[facility] Hospital[facility] the event this information is protected by the Federal Confidentiality of Alcohol and Drug Abuse Patient Records regulations: The Federal rules restrict any use of the information to criminally investigate or prosecute any alcohol or drug abuse patient.[facility] HospitalIn the event this information is protected by the Federal Confidentiality of Alcohol and Drug Abuse Patient Records regulations: The Federal rules restrict any use of the information to criminally investigate or prosecute any alcohol or drug abuse patient.[facility] HospitalIn the event this information is protected by the Federal Confidentiality of Alcohol and Drug Abuse Patient Records regulations: The Federal rules restrict any use of the information to criminally investigate or prosecute any alcohol or drug abuse patient.[facility] Hospital[facility] the event this information is protected by the Federal Confidentiality of Alcohol and Drug Abuse Patient Records regulations: The Federal rules restrict any use of the information to criminally investigate or prosecute any alcohol or drug abuse patient.[facility] HospitalIn the event this information is protected by the Federal Confidentiality of Alcohol and Drug Abuse Patient Records regulations: The Federal rules restrict any use of the information to criminally investigate or prosecute any alcohol or drug abuse patient.[facility] HospitalIn the event this information is protected by the Federal Confidentiality of Alcohol and Drug Abuse Patient Records regulations: The Federal rules restrict any use of the information to criminally investigate or prosecute any alcohol or drug abuse patient.[facility] HospitalIn the event this information is protected by the Federal Confidentiality of Alcohol and Drug Abuse Patient Records regulations: The Federal rules restrict any use of the information to criminally investigate or prosecute any alcohol or drug abuse patient.[facility] HospitalIn the event this information is protected by the Federal Confidentiality of Alcohol and Drug Abuse Patient Records regulations: The Federal rules restrict any use of the information to criminally investigate or prosecute any alcohol or drug abuse patient.[facility] Reason for Visit (unrecogniz ed section and content) Specialty Diagnoses / Procedures Referred By Williamac t Referred To Contact [facility] Diagnoses Thyroid goiter Procedures US THYROID/PARATHYROID US SOFT TISSUE HEAD & NECK REAL TIME IMGE Jhonny Jett APRN.FPGA DESIGN ENGINEER [address] [place] [address] [place] [address] Referral ID Status Reason Start Date Expiration Date V isits Requested Visits Authorized [id number] Closed Auto-Generate d Referral 11/15/2022 12/15/2023 1 1 Reason Comments Well 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 Reason Comments Ultrasound Results Reason Comments Physical Dizziness Reason Comments Orders Reason Comments nexplanon removol and insertion Specialty Diagnoses / Procedures Referred By Crow t Referred To Contact [facility] Diagnoses Encounter for removal and reinsertion of Nexplanon Procedures NEXPLANON REMOVAL REMOVAL NON-BIODEGRADABLE DRUG DELIVERY IMPLANT Rabia Romero APRN.FPGA DESIGN ENGINEER [address] [place] [address] [facility] [address] [place] [address] Referral ID Status Reason Start Date Expiration Date V isits Requested Visits Authorized [id number] Closed Auto-Generate d Referral 12/25/2021 12/24/2022 1 1 Reason Comments Patient Question Reason Comments Trauma Left wrist pain x 1 day Reason Comments Vaginal Problem Vaginal itching x 1 day Reason Comments Results Orders Reason Onset Date Comments Yearly Exam Radiology Mammogram 10/24/2022 at [facility] Reason Comments Physical Right hip pain x 2 m onths , chest and SOB x 1 month Reason Comments Pain Left wrist pain x 3 days Reason Comments Orders Specialty Diagnoses / Procedures Referred By Contac t Referred To Contact [facility] Diagnoses Mastalgia Mass of left breast, unspecified quadrant Procedures US BREAST LTD LEFT US BREAST UNI REAL TIME WITH IMAGE LIMITED Rabia Romero APRN.FPGA DESIGN ENGINEER [address] [place] [address] [facility] [address] [place] [address] Referral ID Status Reason Start Date Expiration Date V isits Requested Visits Authorized [id number] Closed Auto-Generate d Referral 10/24/2022 11/23/2023 1 1 Care Teams (unrecognized sec tion and content) Washing Machine Repairer Relationship Specialty Start Date End Date Sergio Wilhelm, DO [address] [place] [address] PCP - General Family Practice 03/12/13 Washing Machine Repairer Relationship Specialty Start Date End Date Sergio Wilhelm DO [address] [place] [address] PCP - General Family Practice 03/12/13 Washing Machine Repairer Relationship Specialty Start Date End Date Sergio Wilhelm DO [address] [place] [address] PCP - General Family Practice 03/12/13 Washing Machine Repairer Relationship Specialty Start Date End Date Sergio Wilhelm DO [address] [place] [address] PCP - General Family Medicine 03/12/13 Washing Machine Repairer Relationship Specialty Start Date End Date Sergio Wilhelm DO [address] [place] [address] PCP - General Family Medicine 03/12/13 Washing Machine Repairer Relationship Specialty Start Date End Date Sergio Wilhelm DO [address] [facility] [place] [address] PCP - General Family Medicine 03/12/13 Washing Machine Repairer Relationship Specialty Start Date End Date Sergio Wilhelm DO [address] [facility] [place] [address] PCP - General Family Medicine 03/12/13 Washing Machine Repairer Relationship Specialty Start Date End Date Sergio Wilhelm DO [address] [facility] [place] [address] PCP - General Family Medicine 03/12/13 Washing Machine Repairer Relationship Specialty Start Date End Date Sergio Wilhelm DO [address] [facility] [place] [address] PCP - General Family Medicine 03/12/13 Washing Machine Repairer Relationship Specialty Start Date End Date Sergio Wilhelm, [address] [facility] [address] [facility] [address] PCP - General Family Medicine 03/12/13 Washing Machine Repairer Relationship Specialty Start Date End Date Sergio Wilhelm DO [address] [place] [address] PCP - General Family Medicine 03/12/13 Washing Machine Repairer Relationship Specialty Start Date End Date Sergio Wilhelm, [address] [place] [address] PCP - General Family Medicine 03/12/13 Washing Machine Repairer Relationship Specialty Start Date End Date Sergio Wilhelm, [address] [place] [address] PCP - General Family Medicine 03/12/13 Washing Machine Repairer Relationship Specialty Start Date End Date Sergio Wilhelm, [address] [place] [address] PCP - General Family Medicine 03/12/13 Washing Machine Repairer Relationship Specialty Start Date End Date Sergio Wilhelm DO [address] [place] [address] PCP - General Family Medicine 03/12/13 INFORMATION [...] BE BASED ON THE PRIMARY CLINICAL RECORDS. [facility] [employer] [facility]. provides no warranty or guarantee of the accuracy or completeness of information in this document.
[2023-05-11] MEDS: Metoclopramide 10 MG/2 ML Vial IV (22:51)
[2023-05-11] MEDS: DiphenhydrAMINE 50 MG/ML Syringe 25 MG IV (22:51)
[2023-05-11] MEDS: 0.9% Normal Saline (1000mL) 1,000 ML 1000 ML IV (22:51)
[2023-05-11 23:00] LABS: Absolute Lymphocyte Count 1.92 X10^3/uL (0.83-4.51); Basophil# 0.04 X10^3/uL; Basophil% 1.2 % (0-1); Hematocrit 45.8 % (37-47); Hemoglobin 14.5 g/dL (12.0-15.0); Lymphocyte # 1.92 X10^3/ul (0.83-4.51); Mean Corp Hgb Conc 31.7 g/dL (32-36); Mean Corpuscular Hgb 27.6 pg (27.0-32.0); Mean Corpuscular Volume 87.1 fL (81-99); Mean Platelet Vol. 9.2 fl (6.2-12.0); Monocyte# 0.46 X10^3/uL; Monocyte% 13.4 % (0-10); NRBC Flagged by Analyzer 0 % (0-5); Neutrophil % 29.1 % (47-70); POSITIVE MORPHOLOGY YES; Platelet Count 216 K/mm3 (150-450); RBC Distribution Width CV 12.4 % (11.6-14.6); RBC Distribution Width SD 39.4 fl (35.1-43.9); Red Blood Count 5.26 M/mm3 (4.2-5.4); White Blood Count 3.4 K/mm3 (4.4-11.0)
--- NOTE | 2023-05-11 23:00 | RAD_ITS ---
STUDY: X-RAY CHEST REASON FOR EXAM: Female, 37 years old. chest pain TECHNIQUE: Single AP portable view of the chest. COMPARISON: 05/07/2023 FINDINGS: The lungs are clear and expanded. There is no demonstrated pleural abnormality. Normal size heart. Normal mediastinum and yvonne. Normal visualized pulmonary arteries. Normal visualized aortic arch and descending thoracic aorta. Normal visualized thoracic spine. Normal visualized ribs, clavicles, and shoulders. There is no demonstrated abnormality of the visualized soft tissue structures of the upper abdomen. RAD/Chest 1 View (Portable) IMPRESSION: Normal x-ray examination of the chest. Electronically Signed: Juan Gimenez MD at 23:45 EST ,
[2023-05-11 23:01] LABS: Differential Indicated SCAN CRITERIA MET
[2023-05-11 23:06] VITALS: BP 97/74; PULSE 98; RESP 16; TEMP 36.8; O2SAT 98
[2023-05-11 23:19] LABS: AST(SGOT) 43 U/L (15-37); Alanine Aminotransfer ALT/SGPT 48 U/L (13-56); Albumin, Serum 3.6 g/dL (3.2-5.0); Alkaline Phosphatase 78 U/L (45-117); Anion Gap 6 (5-15); BUN 11 mg/dL (7-18); BUN/Creat Ratio 10.3 RATIO (10-20); Bilirubin, Direct 0.13 mg/dL (0.00-0.30); Chloride 105 mmol/L (98-107); Creatinine, Serum 1.07 mg/dL (0.55-1.02); EST Glomerular Filtration Rate 61 mL/min (>60); Est Glom Filt Rate - Afr Amer 74 mL/min (>60); Estimated Creatinine Clearance 66.32 ml/min; Glucose 132 mg/dL (74-106); Lipase 35 U/L (13-75); Potassium 3.3 mmol/L (3.5-5.1); Protein, Total 7.6 g/dL (6.4-8.2); Sodium Level 140 mmol/L (136-145)
[2023-05-12] MEDS: 0.9% Normal Saline (1000mL) 1,000 ML 150 ML IV (00:01)
[2023-05-12 00:03] VITALS: BP 106/75; PULSE 85; RESP 14; TEMP 37.1; O2SAT 98
[2023-05-12] MEDS: Ketorolac 15 MG/ML Vial IV (00:21)
[2023-05-12] MEDS: Mag Hydrox/Al Hydrox/Simeth 30 ML UDC PO (00:21)
[2023-05-12 00:25] LABS: Atypical Lymphocyte 2+ %
[2023-05-12 00:52] VITALS: BP 124/96; PULSE 79; RESP 16; TEMP 37.1; O2SAT 98
== END 2023-05-12 00:53 | disposition home or self-care (01) ==
PROVIDERS: Emergency Provider Emergency Medicine; PCP Student in an Organized Health Care Education/Training Program; Visit Provider Emergency Medicine
DX: J11.1 Influenza due to unidentified influenza virus with other respiratory manifestations (principal); R11.2 Nausea with vomiting, unspecified; F17.210 Nicotine dependence, cigarettes, uncomplicated; Z79.899 Other long term (current) drug therapy; K21.9 Gastro-esophageal reflux disease without esophagitis
CPT/HCPCS: 71045; 80048; 80076; 83690; 85025; 96361; 96374; 96375; 99283; J7030; A4216

== ENCOUNTER 2023-05-13 09:39 | Observation (INO) | payer MEDICAID, SELFPAY ==
[2023-05-13 09:40] VITALS: BP 125/94; PULSE 84; RESP 22; TEMP 37.2; O2SAT 100; BMI 25.6
--- NOTE | 2023-05-13 10:00 | EX.ED.DYSGE1 ---
HPI History of Present Illness Chief Complaint: Nausea/Vomiting Informant: patient Narrative Narrative: Patient presents with recurrent nausea and vomiting. This patient has a history of hyper emesis. She also has a history of cannabis use. She also started feeling ill on the of this month and was diagnosed with influenza B on the of this month. This is her fourth visit to the ED since the start of the influenza B. She states she cannot keep anything down. She cannot keep liquids down. She has Zofran, Phenergan, antacids, Bentyl and they are not working. She has abdominal cramping diffusely but is never localized in any area. It moves around. She is still moving her bowels. She has a little bit of a cough but is not short of breath. She is not having fevers anymore. She called her primary physician who referred her in here for planned admission. [facility] Medical History (Updated 05/13/23 @ 14:[address] Jarred Ham MD) Anxiety COVID-19 Cyclic vomiting syndrome Depression Esophageal reflux Former tobacco use Leukocytosis Marijuana smoker, episodic Pancreatitis Home Medications omeprazole 40 mg capsule,delayed release 40 mg PO DAILY #30 caps 05/12/23 [Rx Last Taken Unknown] ondansetron 4 mg disintegrating tablet 4 mg PO Q8H PRN PRN Nausea #10 tabs 05/12/23 [Rx Last Taken Unknown] Allergy/AdvReac Type Severity Reaction Status Date / Time Fish Containing Products Allergy Swelling Verified 05/13/23 09:40 haloperidol [From Haldol] AdvReac Other Verified 05/13/23 09:40 Family History Mother Hypertension Hyperlipidemia Father Hypertension Hyperlipidemia Surgical History (Updated 05/13/23 @ 14:42 by Marcie Zepeda) History of cholecystectomy Status post cholecystectomy Social History household members: significant other Smoking Status: Current some day smoker tobacco type: cigarettes how long ago did patient quit smoking: Quit 15 years prior to current presentation. alcohol intake: never substance use type: marijuana ROS ROS ED ROS Narrative A complete review of systems was performed and is negative except as documented in the history of present illness. Some specific details below. Constitutional: No longer having fevers or chills. EYE: No visual complaints or pain. No discharge. ENT: No difficulty swallowing. No swelling. No pain. Mild GERD but this may be secondary to recurrent vomiting. CV: No chest pain or palpitations. Respiratory: No dyspnea. No hemoptysis. No difficulty taking breaths. GI: Please see history of present illness. : No frequency dysuria or hematuria. She does feel the urine output is less. Musculoskeletal: No recent trauma. No muscle pain anymore. Skin: No rash. Nondiaphoretic. Neuro: No focal weakness or numbness. Endocrine: No polyuria or polydipsia. EXAM Physical Exam Narrative Exam Narrative: CONSTITUTIONAL: Patient is nontoxic in appearance. But she does look like she does not feel well. HEENT: No notable trauma. Mucous membranes mildly dry. No sinus tenderness. EYES: No pallor. CARDIOVASCULAR: Regular rate and not tachycardic. Regular rhythm. No notable murmur. No JVD. RESPIRATORY: No respiratory distress. Breathing is unlabored. No wheezes. No rhonchi. Saturations are normal 100% on room air showing no hypoxia. GASTROINTESTINAL: Not distended. Bowel sounds are normal to slightly quiet. No tenderness. No guarding. No rebound. No palpable mass. No bruit. GENITOURINARY: No tenderness over the bladder. No CVA tenderness. MUSCULOSKELETAL: Atraumatic. No peripheral edema. NEUROLOGICAL: Patient is alert and appropriate. No focal deficit noted. SKIN: No noted rashes. No diaphoresis. PSYCHIATRIC: Patient is calm. Mood is appropriate. Const Vital Signs: 05/13/23 09:40 05/13/23 13:00 05/13/23 13:00 Temperature 99 F 97.4 F L Temperature Source Temporal Pulse Rate 84 64 64 Respiratory Rate 22 H 16 16 Blood Pressure 125/94 H 134/78 H 137/78 H Blood Pressure Mean 104 96 97 Pulse Ox 100 98 99 Oxygen Delivery Method Room Air Room Air MDM MDM MDM Narrative Medical decision making narrative: Patient's CBC shows no marked abnormalities. Patient's electrolytes show some mildly low potassium. BUN and creatinine is well-preserved but patient is also gotten many liters of IV fluids over the last several days maintaining her hydration. Liver function test are normal. is negative. Urine shows no sign of infection. Patient's urine toxicology screen is positive for cannabinoids. Patient did vomitus further liquids here. She is treated with more meds for nausea and cramping. This patient has history of hyperemesis. This is likely cannabis hyperemesis syndrome. She now has influenza B. I think the 2 of these have made her nausea and vomiting worse. This is now her fourth visit for the same problem in about 6 days. She has brought in under observation to see if we can get this to calm down at this time. Lab Data Attestation: I reviewed the patient's lab results. Labs: Laboratory Results - last 24 hr 05/13/23 05/13/23 05/13/23 10:15 10:15 11:10 WBC Cancelled 4.2 L Corrected WBC Cancelled RBC Cancelled 4.66 Hgb Cancelled 13.0 Hct Cancelled 40.3 MCV Cancelled 86.5 MCH Cancelled 27.9 MCHC Cancelled 32.3 RDW Std Deviation Cancelled 38.7 RDW Coeff of Fabian Cancelled 12.1 Plt Count Cancelled 201 MPV Cancelled 9.2 Immature Gran % (Auto) Cancelled 0.000 Neut % (Auto) Cancelled 41.9 L Lymph % (Auto) Cancelled 47.0 H Dukes % (Auto) Cancelled 10.2 H Eos % (Auto) Cancelled 0.2 Baso % (Auto) Cancelled 0.7 Absolute Neuts (auto) Cancelled 1.8 L Absolute Lymphs (auto) Cancelled 1.99 Total Counted Cancelled Neutrophils % (Manual) Cancelled Band Neutrophils % Cancelled Lymphocytes % (Manual) Cancelled Monocytes % (Manual) Cancelled Eosinophils % (Manual) Cancelled Basophils % (Manual) Cancelled Metamyelocytes % Cancelled Myelocytes % Cancelled Promyelocytes % Cancelled Blast Cells % Cancelled Plasma Cell % (Manual) Cancelled Other Cells % Cancelled Nucleated RBC % Cancelled 0 Nucleated RBCs/100 WBC Cancelled Differential Comment Cancelled Diff Path Review Cancelled Hypersegmented Neuts Cancelled Atypical Lymphocytes Cancelled Reactive Lymphocytes Cancelled Smudge Cells Cancelled Toxic Granulation Cancelled Toxic Vacuolation Cancelled Dohle Bodies Cancelled Nighat Rods Cancelled Platelet Estimate Cancelled Plt Morphology Comment Cancelled RBC Morphology Cancelled Cancelled Polychromasia Cancelled Hypochromasia Cancelled Poikilocytosis Cancelled Basophilic Stippling Cancelled Anisocytosis Cancelled Microcytosis Cancelled Macrocytosis Cancelled Spherocytes Cancelled Sickle Cells Cancelled Target Cells Cancelled Tear Drop Cells Cancelled Ovalocytes Cancelled Stomatocytes Cancelled [place]-Mar-Mac Bodies Cancelled Ryan Cells Cancelled Bite Cells Cancelled Crenated Cell Cancelled Acanthocytes (Spur) Cancelled Rouleaux Cancelled Schistocytes Cancelled Sodium 142 Potassium 3.2 L Chloride 104 Carbon Dioxide 30.0 Anion Gap 8 BUN 5 L Creatinine 0.98 Estim Creat Clear Calc 72.31 Est GFR (MDRD) Af Amer 82 Est GFR (MDRD) Non-Af 68 BUN/Creatinine Ratio 5.1 L Glucose 126 H Lactic Acid 0.7 Calcium 8.7 Total Bilirubin 0.30 AST 34 ALT 56 Alkaline Phosphatase 72 Total Protein 7.3 Albumin 3.6 Globulin 3.7 Albumin/Globulin Ratio 1.0 Lipase 27 Serum , Qual NEGATIVE Urine Color Urine Clarity Urine pH Ur Specific [place] Urine Protein Urine Glucose (UA) Urine Ketones Urine Occult Blood Urine Nitrite Urine Bilirubin Urine Urobilinogen Ur Leukocyte Esterase Urine RBC Urine WBC Ur Squamous Epith Cells Urine Bacteria Urine Mucus Urine Opiates Screen Urine Methadone Screen Ur Barbiturates Screen Ur Phencyclidine Scrn Ur Amphetamines Screen MDMA (Ecstasy) Screen U Benzodiazepines Scrn Urine Cocaine Screen U Cannabinoids Screen Ur Drug Screen Comment 05/13/23 11:45 WBC Corrected WBC RBC Hgb Hct MCV MCH MCHC RDW Std Deviation RDW Coeff of Fabian Plt Count MPV Immature Gran % (Auto) Neut % (Auto) Lymph % (Auto) Dukes % (Auto) Eos % (Auto) Baso % (Auto) Absolute Neuts (auto) Absolute Lymphs (auto) Total Counted Neutrophils % (Manual) Band Neutrophils % Lymphocytes % (Manual) Monocytes % (Manual) Eosinophils % (Manual) Basophils % (Manual) Metamyelocytes % Myelocytes % Promyelocytes % Blast Cells % Plasma Cell % (Manual) Other Cells % Nucleated RBC % Nucleated RBCs/100 WBC Differential Comment Diff Path Review Hypersegmented Neuts Atypical Lymphocytes Reactive Lymphocytes Smudge Cells Toxic Granulation Toxic Vacuolation Dohle Bodies Nighat Rods Platelet Estimate Plt Morphology Comment RBC Morphology Polychromasia Hypochromasia Poikilocytosis Basophilic Stippling Anisocytosis Microcytosis Macrocytosis Spherocytes Sickle Cells Target Cells Tear Drop Cells Ovalocytes Stomatocytes [place]-Mar-Mac Bodies [place] Cells Bite Cells Crenated Cell Acanthocytes (Spur) Rouleaux Schistocytes Sodium Potassium Chloride Carbon Dioxide Anion Gap BUN Creatinine Estim Creat Clear Calc Est GFR (MDRD) Af Amer Est GFR (MDRD) Non-Af BUN/Creatinine Ratio Glucose Lactic Acid Calcium Total Bilirubin AST ALT Alkaline Phosphatase Total Protein Albumin Globulin Albumin/Globulin Ratio Lipase Serum , Qual Urine Color Yellow Urine Clarity Clear Urine pH 7.0 Ur Specific [place] 1.010 Urine Protein 30 H Urine Glucose (UA) Normal Urine Ketones Negative Urine Occult Blood 10 H Urine Nitrite Negative Urine Bilirubin Negative Urine Urobilinogen Normal Ur Leukocyte Esterase Negative Urine RBC 0-5 SEEN Urine WBC 0 SEEN Ur Squamous Epith Cells 0 SEEN Urine Bacteria 0 SEEN Urine Mucus 0 SEEN Urine Opiates Screen NEGATIVE Urine Methadone Screen NEGATIVE Ur Barbiturates Screen NEGATIVE Ur Phencyclidine Scrn NEGATIVE Ur Amphetamines Screen NEGATIVE MDMA (Ecstasy) Screen NEGATIVE U Benzodiazepines Scrn NEGATIVE Urine Cocaine Screen NEGATIVE U Cannabinoids Screen POSITIVE H Ur Drug Screen Comment Management Discussion w/another healthcare provider: Hospitalist Discharge Plan Dx/Rx/DC Orders Clinical Impression: Cannabis hyperemesis syndrome concurrent with and due to cannabis dependence, Influenza B, Intractable nausea and vomiting Disposition Disposition: Acute Care Hospital [facility] Discharge Date/Time: 05/13/23 14:27
[2023-05-13] MEDS: Ondansetron 4 MG/2 ML Vial IV (10:21)
[2023-05-13] MEDS: 0.9% Normal Saline (1000mL) 1,000 ML 1000 ML IV (10:21)
[2023-05-13 10:42] LABS: Internal QC Validated? YES +Cl - CLEAR BKGD; Pregnancy, Serum, hCG Quali. NEGATIVE Negative
[2023-05-13 10:54] LABS: AST(SGOT) 34 U/L (15-37); Alanine Aminotransfer ALT/SGPT 56 U/L (13-56); Albumin, Serum 3.6 g/dL (3.2-5.0); Alkaline Phosphatase 72 U/L (45-117); Anion Gap 8 (5-15); BUN 5 mg/dL (7-18); BUN/Creat Ratio 5.1 RATIO (10-20); Calcium,Total 8.7 mg/dL (8.5-10.1); Chloride 104 mmol/L (98-107); Creatinine, Serum 0.98 mg/dL (0.55-1.02); EST Glomerular Filtration Rate 68 mL/min (>60); Est Glom Filt Rate - Afr Amer 82 mL/min (>60); Estimated Creatinine Clearance 72.31 ml/min; Globulin 3.7 g/dL (2.2-4.2); Glucose 126 mg/dL (74-106); Lipase 27 U/L (13-75); Potassium 3.2 mmol/L (3.5-5.1); Protein, Total 7.3 g/dL (6.4-8.2); Sodium Level 142 mmol/L (136-145)
[2023-05-13 10:55] LABS: Lactic Acid 0.7 mmol/L (0.4-1.9)
[2023-05-13 11:16] LABS: Absolute Lymphocyte Count 1.99 X10^3/uL (0.83-4.51); Absolute Neutrophil Count 1.8 X10^3/uL (2.0-7.7); Basophil# 0.03 X10^3/uL; Basophil% 0.7 % (0-1); Eosinophil# 0.01 X10^3/uL; Eosinophils% 0.2 % (0-5); Hematocrit 40.3 % (37-47); Lymphocyte # 1.99 X10^3/ul (0.83-4.51); Mean Corp Hgb Conc 32.3 g/dL (32-36); Mean Corpuscular Hgb 27.9 pg (27.0-32.0); Mean Corpuscular Volume 86.5 fL (81-99); Mean Platelet Vol. 9.2 fl (6.2-12.0); Monocyte# 0.43 X10^3/uL; Monocyte% 10.2 % (0-10); NRBC Flagged by Analyzer 0 % (0-5); Neutrophil # 1.77 X10^3/uL (2.7-7.7); Neutrophil % 41.9 % (47-70); POSITIVE MORPHOLOGY YES; Platelet Count 201 K/mm3 (150-450); RBC Distribution Width CV 12.1 % (11.6-14.6); RBC Distribution Width SD 38.7 fl (35.1-43.9); Red Blood Count 4.66 M/mm3 (4.2-5.4); White Blood Count 4.2 K/mm3 (4.4-11.0)
[2023-05-13 11:33] LABS: Differential Indicated SCAN CRITERIA MET
[2023-05-13 11:53] LABS: Bacteria 0 SEEN /hpf (None Seen); Mucous, Urine 0 SEEN /hpf (<or=2+); Squamous Epithelial Cells - UA 0 SEEN /hpf (5-10); White Blood Cells 0 SEEN /hpf (0-5)
[2023-05-13 11:56] LABS: Color, Urine Yellow (Yellow); Glucose, Dipstick Normal (Normal); Ketone-Dipstick Negative (Negative); Leukocyte Esterase-Dipstick Negative /ul (Negative); Nitrite-Dipstick Negative (Negative); Occult Blood-Urine 10 /ul (Negative); Protein-Dipstick 30 mg/dl (Negative); Urine Bilirubin Dipstick Negative (Negative); Urine Clarity Clear (Clear); Urine Urobilinogen Normal (Normal)
[2023-05-13 12:02] LABS: Red Blood Cells-Urine 0-5 SEEN /hpf (0-5)
[2023-05-13 12:08] LABS: Amphetamine Urine VISTA NEGATIVE (<1000 ng/mL); Barbiturate Urine VISTA NEGATIVE (< 200 ng/mL); Benzodiazepine Urine VISTA NEGATIVE (< 200 ng/mL); Cocaine Urine VISTA NEGATIVE (< 300 ng/mL); Ecstacy Urine VISTA NEGATIVE (< 500 ng/mL); Methadone Urine VISTA NEGATIVE (< 300 ng/mL); PCP Urine VISTA NEGATIVE (< 25 ng/mL); THC Urine VISTA POSITIVE (< 50 ng/mL); Vista UDS pH Range 7
[2023-05-13] MEDS: proMETHazine 25 MG/ML Syringe 12.5 MG IM (12:21)
[2023-05-13] MEDS: Dicyclomine 20 MG/2 ML Vial IM (12:21)
[2023-05-13 13:00] VITALS: BP 134/78; BP 137/78; PULSE 64; RESP 16; TEMP 36.3; O2SAT 98; O2SAT 99
--- NOTE | 2023-05-13 14:05 | HP.PCM.HOS_ITS ---
HPI - General General Date of Admission: 05/13/23 Date of Service: 05/13/23 Chief Complaint: Intractable n/v HPI Narrative SYLVIE MERCADO, is a 37-year-old female history of hyperemesis, GERD, former tobacco use, marijuana use presented to [facility] ED 05/13/2023 with recurrent nausea and vomiting. Started feeling ill on the of this month and was diagnosed with flu B on the , this is her fourth visit to the ED since that diagnosis. Reports intractable nausea and vomiting and is unable to keep any food or liquids down. Patient refractory to conservative measures in ED, has some diffuse abdominal cramping but not localized and still moving her bowels. Given her inability to tolerate p.o. hospitalist contacted for admission. Patient seen at bedside who reports the nausea and vomiting since earlier this month as above, has some migrating abdominal cramping and has loose stool she said it small amount but it is often, sometimes feels chills, still coughing occasionally, throat feels raw, sometimes will feel dizzy when she is up moving around, answered yes to almost all ROS. Said yesterday she was f eeling little bit better but today feels worse again. [facility], [facility] Medical History COVID-19 Cyclic vomiting syndrome Esophageal reflux Former tobacco use Leukocytosis Marijuana smoker, episodic Home Medications omeprazole 40 mg capsule,delayed release 40 mg PO DAILY #30 caps 05/12/23 [Rx Last Taken Unknown] ondansetron 4 mg disintegrating tablet 4 mg PO Q8H PRN PRN Nausea #10 tabs 05/12/23 [Rx Last Taken Unknown] Allergy/AdvReac Type Severity Reaction Status Date / Time Fish Containing Products Allergy Swelling Verified 05/13/23 09:40 haloperidol [From Haldol] AdvReac Other Verified 05/13/23 09:40 Family History Mother Hypertension Hyperlipidemia Father Hypertension Hyperlipidemia Surgical History Status post cholecystectomy Social History household members: significant other Smoking Status: Current some day smoker tobacco type: cigarettes how long ago did patient quit smoking: Quit 15 years prior to current presentation. alcohol intake: never substance use type: marijuana ROS ROS Narrative General: Feels that she has some chills HENT: Stuffy nose and her throat EYES: Denies changes in vision Resp: Cough Cardiac: Will get some chest pain GI: Reports diarrhea, nausea vomiting, abdominal pain : Denies changes in urination Extremity: Denies swelling MSK: Just generally feels unwell Neuro: Denies any numbness/tingling Heme: Denies any bleeding or bruising Skin: Denies rashes Psychiatric: Feels unwell Vital Signs Vital Signs Vital Signs: 05/13/23 09:40 05/13/23 13:00 05/13/23 13:00 Temperature 99 F 97.4 F L Temperature Source Temporal Pulse Rate 84 64 64 Respiratory Rate 22 H 16 16 Blood Pressure 125/94 H 134/78 H 137/78 H Blood Pressure Mean 104 96 97 Pulse Ox 100 98 99 Oxygen Delivery Method Room Air Room Air Weight Weight: 65.7 kg Body Mass Index (BMI) 25.6 Physical Exam Narrative General: Alert, oriented, appears distressed once exam begins HEENT: Atraumatic, normocephalic Eyes: Anicteric, normal conjunctiva, extraocular movements grossly intact Neck: Supple Respiratory: Clear to auscultation bilaterally, normal respiratory effort Cardiovascular: Regular rate and rhythm GI: Soft, nondistended, patient barely allows abdomen be palpated with hand and reports severe pain on palpation with hands however able to push down/palpate with stethoscope while auscultating with no rebound, guarding, rigidity, hypoactive bowel sounds Extremities: No edema Musculoskeletal: Moving all extremities Neuro: No overt focal neurological deficits Skin: No rashes appreciated Psych: Patient superficially cooperative Results Lab / Micro Data 05/13/23 11:10 05/13/23 10:15 Labs: Laboratory Results - last 24 hr 05/13/23 10:15: WBC Cancelled, Corrected WBC Cancelled, RBC Cancelled, Hgb Cancelled, Hct Cancelled, MCV Cancelled, MCH Cancelled, MCHC Cancelled, RDW Std Deviation Cancelled, RDW Coeff of Fabian Cancelled, Plt Count Cancelled, MPV Cancelled, Immature Gran % (Auto) Cancelled, Neut % (Auto) Cancelled, Lymph % (Auto) Cancelled, Sully % (Auto) Cancelled, Eos % (Auto) Cancelled, Baso % (Auto) Cancelled, Absolute Neuts (auto) Cancelled, Absolute Lymphs (auto) Cancelled, Total Counted Cancelled, Neutrophils % (Manual) Cancelled, Band Neutrophils % Cancelled, Lymphocytes % (Manual) Cancelled, Monocytes % (Manual) Cancelled, Eosinophils % (Manual) Cancelled, Basophils % (Manual) Cancelled, Metamyelocytes % Cancelled, Myelocytes % Cancelled, Promyelocytes % Cancelled, Blast Cells % Cancelled, Plasma Cell % (Manual) Cancelled, Other Cells % Cancelled, Nucleated RBC % Cancelled, Nucleated RBCs/100 WBC Cancelled, Differential Comment Cancelled, Diff Path Review Cancelled, Hypersegmented Neuts Cancelled, Atypical Lymphocytes Cancelled, Reactive Lymphocytes Cancelled, Smudge Cells Cancelled, Toxic Granulation Cancelled, Toxic Vacuolation Cancelled, Dohle Bodies Cancelled, Nighat Rods Cancelled, Platelet Estimate Cancelled, Plt Morphology Comment Cancelled, RBC Morphology Cancelled 05/13/23 10:15: RBC Morphology Cancelled, Polychromasia Cancelled, Hypochromasia Cancelled, Poikilocytosis Cancelled, Basophilic Stippling Cancelled, Anisocytosis Cancelled, Microcytosis Cancelled, Macrocytosis Cancelled, Spherocytes Cancelled, Sickle Cells Cancelled, Target Cells Cancelled, Tear Drop Cells Cancelled, Ovalocytes Cancelled, Stomatocytes Cancelled, [place] Bodies Cancelled, [place] Cells Cancelled, Bite Cells Cancelled, Crenated Cell Cancelled, Acanthocytes (Spur) Cancelled, Rouleaux Cancelled, Schistocytes Cancelled, Sodium 142, Potassium 3.2 L, Chloride 104, Carbon Dioxide 30.0, Anion Gap 8, BUN 5 L, Creatinine 0.98, Estim Creat Clear Calc 72.31, Est GFR (MDRD) Af Amer 82, Est GFR (MDRD) Non-Af 68, BUN/Creatinine Ratio 5.1 L, Glucose 126 H, Lactic Acid 0.7, Calcium 8.7, Total Bilirubin 0.30, AST 34, ALT 56, Alkaline Phosphatase 72, Total Protein 7.3, Albumin 3.6, Globulin 3.7, Albumin/Globulin Ratio 1.0, Lipase 27, Serum , Qual NEGATIVE 05/13/23 11:10: WBC 4.2 L, RBC 4.66, Hgb 13.0, Hct 40.3, MCV 86.5, MCH 27.9, MCHC 32.3, RDW Std Deviation 38.7, RDW Coeff of Fabian 12.1, Plt Count 201, MPV 9.2, Immature Gran % (Auto) 0.000, Neut % (Auto) 41.9 L, Lymph % (Auto) 47.0 H, Sully % (Auto) 10.2 H, Eos % (Auto) 0.2, Baso % (Auto) 0.7, Absolute Neuts (auto) 1.8 L, Absolute Lymphs (auto) 1.99, Nucleated RBC % 0 05/13/23 11:45: Urine Color Yellow, Urine Clarity Clear, Urine pH 7.0, Ur Specific [place] 1.010, Urine Protein 30 H, Urine Glucose (UA) Normal, Urine Ketones Negative, Urine Occult Blood 10 H, Urine Nitrite Negative, Urine Bilirubin Negative, Urine Urobilinogen Normal, Ur Leukocyte Esterase Negative, Urine RBC 0-5 SEEN, Urine WBC 0 SEEN, Ur Squamous Epith Cells 0 SEEN, Urine Bacteria 0 SEEN, Urine Mucus 0 SEEN, Urine Opiates Screen NEGATIVE, Urine Methadone Screen NEGATIVE, Ur Barbiturates Screen NEGATIVE, Ur Phencyclidine Scrn NEGATIVE, Ur Amphetamines Screen NEGATIVE, MDMA (Ecstasy) Screen NEGATIVE, U Benzodiazepines Scrn NEGATIVE, Urine Cocaine Screen NEGATIVE, U Cannabinoids Screen POSITIVE H, Ur Drug Screen Comment Assessment & Plan Assessment/Plan (1) Marijuana use: (2) Nausea vomiting and diarrhea: PLAN: Plan #Intractable nausea and vomiting -Possibly viral in nature versus cannabinoid induced -Patient reports she has not used marijuana in a couple of weeks and only uses intermittently, of note UDS is positive today -Replace electrolytes -CLD -IV fluids -Antiemetics and supportive care -Will also start scopolamine patch -Was evaluated by GI in December for similar presentation and had EGD which showed a small hiatal hernia and erythematous duodenopathy and she was started on scopolamine patch #Diarrhea and abd pain -In addition to above, again possibly viral in nature -Will obtain stool studies and KUB -IVF -I's and O's #Hypokalemia -Will replace #GERD -Pt not taking PPI any longer #DVT ppx: Lovenox sub q Talita Santizo, MD Charges/Coding Visit Charges Inpatient E&M: 05550 Init Hosp L1
--- NOTE | 2023-05-13 14:16 | RAD_ITS ---
STUDY: X-RAY - ABDOMEN/PELVIS REASON FOR EXAM: Female, 37 years old. Abd pain, diarrhea TECHNIQUE: Single AP view of the abdomen / pelvis. COMPARISON: None. FINDINGS: Normal visualized lung bases. There is an unremarkable bowel gas pattern. The visualized liver, spleen and kidneys are grossly normal in size and morphology. Normal soft tissue structures. Normal visualized osseous structures. RAD/Abdomen Single View (Portable) IMPRESSION: Normal x-ray examination of the abdomen and pelvis. Electronically Signed: Preet Lewis MD at 14:40 EST ,
[2023-05-13 14:35] VITALS: BMI 24.8
[2023-05-13 14:51] VITALS: BP 132/87; PULSE 60; RESP 12; TEMP 37.6; O2SAT 100
[2023-05-13] MEDS: 0.9% Normal Saline (1000mL) 1,000 ML 75 ML IV (15:33)
[2023-05-13] MEDS: Scopolamine 1mg/72hr Patch 1 PATCH TD (15:37)
[2023-05-13] MEDS: 0.9% Normal Saline (250mL Bag) 250 ML 15 ML IV (15:37)
[2023-05-13] MEDS: Potassium Chloride 10mEq/100mL 10 MEQ/100 ML IV.SOLN. 75 MEQ IV BOLUS ×2 (15:37→17:16)
[2023-05-13] MEDS: Morphine 2 MG/ML Syringe IV (15:38)
[2023-05-13 15:46] VITALS: TEMP 37
--- OUTSIDE RECORDS SUMMARY | 2023-05-13 19:37 | XMS RPT_ITS | CCD ---
Author Name Unknown Address [address] [place] [address] Organization [facility] Care Team Providers Care Telecasting Engineer Name Role Phone Sergio Wilhelm DO Primary Care Provider SERGIO WILHELM Primary Care Unavailable TONYA, DAYAMI Attending Unavailable SERGIO WILHELM Primary Care Unavailable TONYA, DAYAMI Referring Unavailable SERGIO WILHELM Primary Care Unavailable DAYAMI CASTANEDA Referring Unavailable WILHELM SERGIO Luis Alberto Primary Care Unavailable TONYA, DAYAMI Referring Unavailable WILHELM, SERGIO L Primary Care Unavailable WILHELM, SERGIO L Primary Care Unavailable RABIA ROMERO Attending Unavailable WILHELM, SERGOI Luis Alberto Primary Care Unavailable JHONNY RUIZ Referring Unavailable WILHELM, SERGIO Luis Alberto Primary Care Unavailable RABIA ROMERO Referring Unavailable WILHELM, SERGIO L Primary Care Unavailable RABIA ROMERO Referring Unavailable WILHELM, SERGIO L Primary Care Unavailable JUAN MONTANA Attending Unavailable CHOCO, SERGIO Luis Alberto Primary Care Unavailable JHONNY RUIZ Attending Unavailable CHOCO, SERGIO Luis Alberto Primary Care Unavailable CHOCO, SERGIO L Primary Care Unavailable LALO TOVAR Referring Unavailable WILHELM, SERGIO Luis Alberto Primary Care Unavailable WILHELM, SERGIO L Primary Care Unavailable Choco DOUGLASS Sergio Luis Alberto Primary Care Provider Allergies Allergy Classification Reported Allergen(s) Allergy Type Date of Onset Reaction(s) Facility (20 sources) Atropine / Diphenoxylate; Translations: [DIPHENOXYLATE-A TROPINE] Drug Allergy 01-13-2017 Intolerance, GI Upset [facility] Work Phone: (20 sources) Fish; Translations: [FISH] Food Allergy 08-29-2011 Swelling, Other: See Comments [facility] Work Phone: Medications Current Medications Medication Drug [...] Sig (Original) acetaminophen 325 mg oral capsule (20 sources) acetaminophen 32 5 mg cap Take by mouth as needed. 0 Active Problems Active Problems Problem Classification Problem Date Documented Da te Episodic/Chronic Anxiety disorders (20 sources) Posttraumatic stress disorder; Translations: [Post-traumatic stress [...] irritable bowel syndrome] Chronic Other gastrointestinal disorders (20 sources) Irritable bowel syndrome with diarrhea; Translations: [Irritable bowel syndrome with diarrhea] Onset: 06-07-2016 06-07-2016 Chronic Other non-traumatic joint disorders (1 source) Pain in wrist; Translations: [Pain in left wrist] Episodic Other non-traumatic joint disorders (1 source) Pain in right hip joint; Translations: [Pain in right hip] 11-08-2022 Episodic Substance-related disorders (20 sources) Psychoactive substance abuse; Translations: [Cannabis abuse, [...] 98.1 [degF] Corey Sloan MD Work Phone: [facility] 11-18-2022 14:18-0400 Body weight 70.22 kg Corey Sloan MD Work Phone: [facility] 11-18-2022 14:18-0400 Diastolic blood pressure 68 mm[Hg] Corey Sloan MD Work Phone: [facility] 11-18-2022 14:18-0400 Heart rate 81 /min Corey Sloan MD Work Phone: [facility] 11-18-2022 14:18-0400 Respiratory rate 21 /min Corey Sloan MD Work Phone: [facility] 11-18-2022 14:18-0400 SaO2% (BldA) [Mass fraction] 99 % Corey Sloan MD Work Phone: [facility] 11-18-2022 14:18-0400 Systolic blood pressure 100 mm[Hg] Corey Sloan MD Work Phone: [facility] 11-08-2022 11:28-0400 Body height 163 cm Dayami Tonya AUTOMOTIVE SHOP FOREMAN.PILOT BOAT OPERATOR Work Phone: [facility] 11-08-2022 11:28-0400 Body weight 69.85 kg Dayami Tonya AUTOMOTIVE SHOP FOREMAN.PILOT BOAT OPERATOR Work Phone: [facility] 11-08-2022 11:28-0400 Diastolic blood pressure 64 mm[Hg] Dayami Tonya AUTOMOTIVE SHOP FOREMAN.PILOT BOAT OPERATOR Work Phone: [facility] 11-08-2022 11:28-0400 Heart rate 74 /min Dayami Tonya AUTOMOTIVE SHOP FOREMAN.PILOT BOAT OPERATOR Work Phone: [facility] 11-08-2022 11:28-0400 Respiratory rate 16 /min Dayami Castaneda APRN.PILOT BOAT OPERATOR Work Phone: [facility] 11-08-2022 11:28-0400 SaO2% (BldA) [Mass fraction] 99 % Dayami Castaneda APRN.PILOT BOAT OPERATOR Work Phone: [facility] 11-08-2022 11:28-0400 Systolic blood pressure 102 mm[Hg] Dayami Castaneda APRN.PILOT BOAT OPERATOR Work Phone: [facility] 10-24-2022 11:17-0400 Body height 160 cm Rabia Romero APRN.PILOT BOAT OPERATOR Work Phone: [facility] 10-24-2022 11:17-0400 Body weight 67.59 kg Rabia Romero APRN.PILOT BOAT OPERATOR Work Phone: [facility] 10-24-2022 11:17-0400 Diastolic blood pressure 68 mm[Hg] Rabia Romero APRN.PILOT BOAT OPERATOR Work Phone: [facility] 10-24-2022 11:17-0400 Systolic blood pressure 112 mm[Hg] Rabia Romero APRN.PILOT BOAT OPERATOR Work Phone: [facility] 06-15-2022 08:47-0400 Body temperature 97.5 [degF] Radha Humphreys APRN.PILOT BOAT OPERATOR Work Phone: [facility] 06-15-2022 08:47-0400 Body weight 71.85 kg Radha Humphreys APRN.PILOT BOAT OPERATOR Work Phone: [facility] 06-15-2022 08:47-0400 Diastolic blood pressure 64 mm[Hg] Radha Humphreys APRN.PILOT BOAT OPERATOR Work Phone: [facility] 06-15-2022 08:47-0400 Heart rate 70 /min Radha Humphreys APRN.PILOT BOAT OPERATOR Work Phone: [facility] 06-15-2022 08:47-0400 Respiratory rate 18 /min Radha Humphreys APRN.PILOT BOAT OPERATOR Work Phone: [facility] 06-15-2022 08:47-0400 SaO2% (BldA) [Mass fraction] 99 % Radha Humphreys AUTOMOTIVE SHOP FOREMAN.PILOT BOAT OPERATOR Work Phone: [facility] 06-15-2022 08:47-0400 Systolic blood pressure 102 mm[Hg] Radha Humphreys AUTOMOTIVE SHOP FOREMAN.PILOT BOAT OPERATOR Work Phone: [facility] 05-30-2022 09:20-0500 Body temperature 96.91 [degF] Lalo Tovar AUTOMOTIVE SHOP FOREMAN.PILOT BOAT OPERATOR Work Phone: [facility] 05-30-2022 09:20-0500 Body weight 67.59 kg Lalo Tovar AUTOMOTIVE SHOP FOREMAN.PILOT BOAT OPERATOR Work Phone: [facility] 05-30-2022 09:20-0500 Diastolic blood pressure 76 mm[Hg] Lalo Tovar AUTOMOTIVE SHOP FOREMAN.PILOT BOAT OPERATOR Work Phone: [facility] 05-30-2022 09:20-0500 Heart rate 80 /min Lalo Tovar AUTOMOTIVE SHOP FOREMAN.PILOT BOAT OPERATOR Work Phone: [facility] 05-30-2022 09:20-0500 Respiratory rate 21 /min Lalo Tovar AUTOMOTIVE SHOP FOREMAN.PILOT BOAT OPERATOR Work Phone: [facility] 05-30-2022 09:20-0500 SaO2% (BldA) [Mass fraction] 99 % Lalo Tovar AUTOMOTIVE SHOP FOREMAN.PILOT BOAT OPERATOR Work Phone: [facility] 05-30-2022 09:20-0500 Systolic blood pressure 108 mm[Hg] Lalo Tovar AUTOMOTIVE SHOP FOREMAN.PILOT BOAT OPERATOR Work Phone: [facility] 01-01-2022 11:37-0400 Body weight 63.05 kg Rabia Romero AUTOMOTIVE SHOP FOREMAN.PILOT BOAT OPERATOR Work Phone: [facility] 01-01-2022 11:37-0400 Diastolic blood pressure 60 mm[Hg] Rabia Romero AUTOMOTIVE SHOP FOREMAN.PILOT BOAT OPERATOR Work Phone: [facility] 01-01-2022 11:37-0400 Systolic blood pressure 96 mm[Hg] Rabia Romero AUTOMOTIVE SHOP FOREMAN.PILOT BOAT OPERATOR Work Phone: [facility] 12-10-2021 09:19-0400 Body height 165.2 cm Dayami Tonya AUTOMOTIVE SHOP FOREMAN.PILOT BOAT OPERATOR Work Phone: [facility] 12-10-2021 09:19-0400 Body weight 63.96 kg Dayami Tonya AUTOMOTIVE SHOP FOREMAN.PILOT BOAT OPERATOR Work Phone: [facility] 12-10-2021 09:19-0400 Diastolic blood pressure 60 mm[Hg] Dayami Tonya AUTOMOTIVE SHOP FOREMAN.PILOT BOAT OPERATOR Work Phone: [facility] 12-10-2021 09:19-0400 Heart rate 67 /min Dayami Tonya AUTOMOTIVE SHOP FOREMAN.PILOT BOAT OPERATOR Work Phone: [facility] 12-10-2021 09:19-0400 Respiratory rate 16 /min Dayami Tonya AUTOMOTIVE SHOP FOREMAN.PILOT BOAT OPERATOR Work Phone: [facility] 12-10-2021 09:19-0400 SaO2% (BldA) [Mass fraction] 98 % Dayami Tonya AUTOMOTIVE SHOP FOREMAN.PILOT BOAT OPERATOR Work Phone: [facility] 12-10-2021 09:19-0400 Systolic blood pressure 98 mm[Hg] Dayami Tonya AUTOMOTIVE SHOP FOREMAN.PILOT BOAT OPERATOR Work Phone: [facility] 10-03-2021 15:14-0400 Body height 162.6 cm Rabia Romero AUTOMOTIVE SHOP FOREMAN.PILOT BOAT OPERATOR Work Phone: [facility] 10-03-2021 15:14-0400 Body weight 62.69 kg Rabia Romero AUTOMOTIVE SHOP FOREMAN.PILOT BOAT OPERATOR Work Phone: [facility] 10-03-2021 15:14-0400 Diastolic blood pressure 58 mm[Hg] Rabia Romero AUTOMOTIVE SHOP FOREMAN.PILOT BOAT OPERATOR Work Phone: [facility] 10-03-2021 15:14-0400 Systolic blood pressure 90 mm[Hg] Rabia Cavanaughie AUTOMOTIVE SHOP FOREMAN.PILOT BOAT OPERATOR Work Phone: [facility] Encounters Encounter Date Encounter Type Care Provider Facility Start: 05-13-2023 Telephone encounter Sergio espino DO Work Phone: [facility] Dmitri Procedures Date Procedure Procedure Detail Performing Clinician Start: 12-03-2022 Us breast uni real t martin with image limited Rabia Romero APRN.PILOT BOAT OPERATOR Work Phone: Start: 11-28-2022 Us soft tissue head & neck real time imge corine Jhonny Ruiz PARVIZ.PILOT BOAT OPERATOR Work Phone: Start: 09-07-2019 Adult depression screening assessment Rabia Romero APRN.PILOT BOAT OPERATOR Work Phone: Plan of Treatment Date Care Activity Detail Author Start: 08-26-2028 Urine microalbumin profile [facility] Start: 03-05-2024 Covid-19 Vaccine (#1) Covid-19 Vacci ne (#1) [facility] Immunizations Immunization Date Immunization Notes Care Provider Fa riteshty 04-30-2019 influenza, injectabl e, quadrivalent, contains preservative Rabia Romero APRN.[facility] Work Phone: [facility] 04-30-2019 influenza virus vacc ine, unspecified formulation 1 Work Phone: [facility] 08-26-2018 tetanus toxoid, redu justyn diphtheria toxoid, and acellular pertussis vaccine, adsorbed Rabia Backhrie AUTOMOTIVE SHOP FOREMAN.PILOT BOAT OPERATOR Work Phone: [facility] 12-22-2016 influenza, seasonal, injectable Raiba Romero AUTOMOTIVE SHOP FOREMAN.PILOT BOAT OPERATOR Work Phone: [facility] 12-12-2014 influenza, injectabl e, quadrivalent, contains preservative Rabia Romero AUTOMOTIVE SHOP FOREMAN.PILOT BOAT OPERATOR Work Phone: [facility] 12-12-2014 influenza, seasonal, injectable Rabia Romero AUTOMOTIVE SHOP FOREMAN.PILOT BOAT OPERATOR Work Phone: [facility] Work Phone: 11-09-2014 tetanus toxoid, redu justyn diphtheria toxoid, and acellular pertussis vaccine, adsorbed Rabia Romero AUTOMOTIVE SHOP FOREMAN.PILOT BOAT OPERATOR Work Phone: [facility] 02-08-2013 varicella virus vaccine Rabia Romerowilliam JJ.PILOT BOAT OPERATOR Work Phone: [facility] 12-23-2012 influenza virus vacc ine, unspecified formulation Rabia Romero APRN.PILOT BOAT OPERATOR Work Phone: [facility] Work Phone: 12-22-2012 influenza, seasonal, injectable, preservative free Rabia Romero APRN.PILOT BOAT OPERATOR Work Phone: [facility] Work Phone: 10-17-2012 varicella virus vaccine Rabia Romero APRN.PILOT BOAT OPERATOR Work Phone: [facility] 08-05-2011 tetanus toxoid, redu justyn diphtheria toxoid, and acellular pertussis vaccine, adsorbed Rabia Romero APRN.PILOT BOAT OPERATOR Work Phone: [facility] Work Phone: 01-31-2009 novel Influenza-H1N1 -09, live virus for nasal administration Rabia Romero APRN.PILOT BOAT OPERATOR Work Phone: [facility] Work Phone: Payers Date Payer Category Payer Medicaid [id number] 2016 Medicaid [place] [id number] 2016-Present [phone] [place] [id number] Medicaid [id number] 2016 Medicaid [id number] Social History Date Type Detail Facility Start: [facility]10[facility] Work Phone: End: 03-24-2005 History of tobacco use Current smoker [facility] Work Phone: End: 03-24-2005 History of tobacco use Cigarette Smoker [facility] Work Phone: Start: 10-03-2021 End: 06-15-2022 Alcohol intake Current non-drinker of alcohol (finding) [facility] Start: 09-07-2019 History SDOH Alcohol Frequency 3 [facility] Start: 09-07-2019 History SDOH Alcohol Std Drinks 1 [facility] Start: 09-07-2019 History SDOH Social Connections Phone 5 [facility] Start: 09-07-2019 End: 05-05-2020 History SDOH Social Connections Get Together 2 [facility] Start: 09-07-2019 History SDOH Social Connections Living 8 [facility] Start: 1985 Sex Assigned At Not on file C [facility] Start: 09-07-2021 End: 12-10-2021 Exposure to SARS-CoV-2 (event) Not sure [facility] Start: 12-10-2021 End: 10-04-2022 Cigarettes smoked current (pack per day) - Reported 0.5 [facility] Start: 12-10-2021 Tobacco use and exposure Smoke less tobacco non-user [facility] Start: 10-24-2022 End: 11-18-2022 Alcohol intake Current drinker of alcohol (finding) [facility] Start: 09-07-2019 End: 10-04-2022 Social connection and isolation panel [facility] Do you belong to any clubs or organizations such as worship groups, unions, fraternal or athletic groups, or school groups? No [facility] Are you now , , , , never or living with a partner? Living with partner [facility] How often to you hav e a drink containing alcohol? 2-4 times a month [facility] How many standard dr inks containing alcohol do you have on a typical day? 1 or 2 [facility] How often do you hav e 6 or more drinks on 1 occasion? Never [facility] Adult Depression Scr eening Assessment 0 [facility] Do you feel stress - tense, restless, nervous, or anxious, or unable to sleep at night because your mind is troubled all the time - these days [OSQ] Only a little [facility] Start: 10-24-2022 Alcohol Comment socially Molly [facility] Start: 03-05-2023 Alcohol intake Ex-drinker (finding) [facility] Clinical Notes 04-08-2018 to 05-13-2023 Telephone Encounter - Shirlene Carrasco LPN - 05/13/2023 9:33 AM ESTTelephone Encounter - Reta Darby RN - 05/12/2023 3:40 PM IamZaida, SHIRACA - 12/03/2022 1:30 PM EDT Note Date & Type Note Facility 05-13-2023 Miscellaneous Notes Pt calls to report she has an appt this morning with Dr. Valdez for f/u ER for vomiting. Pt reports she has been vomiting all night and is not sure what to do. Pt going to ER to be evaluated for dehydration/fluids/antinausea med. Nurse notified of same. Shirlene Carrasco LPN documented in this encounter [facility] 05-12-2023 Miscellaneous Notes After speaking with management and confirming that we are unable to fill out any paperwork or work excuses for pt's significant other, called and spoke with pt. She states she understands and states she had told Barb several times that we would not be able to do any paperwork because we did not see her. Pt does sound very sick. Offered to make her an appt at this time but declined. Instructed pt to call us if she needs to be seen. Verbalizes understanding. States she will pass on information to her boyfriend Barb. Pt's boyfriend Barb Young calling in and states that his insurance company faxed over some paperwork to provider's office. He states this needs filled out so that he won't get points for missing work to care for his girlfriend (the patient) and their kids. He states the patient is very sick and he has had to leave work several times to care for her and his kids. He states the pt has been to [facility] ER several times in the past week. Per appt desk and chart review, no visit with provider during this time. Attempted several times to explain to him that the provider cannot fill out any paperwork or write any work excuse as we have not seen the patient. He got very angry and upset and states that the clinic filled out some paperwork for him for his kids so he doesn't understand why we cannot do it. He states he [facility] his kids [facility]. Explained that because they were seen and there is documentation, that makes a difference. Again he does not understand why we cannot fill out the paperwork stating pt has been ill and seen in the ER. Instructed him to check with the ER to see if they can help him out or use pt's paperwork from the ER to send to his insurance company. Barb still very upset. Offered to pt to speak to seafood manager to clarify what I am telling him is correct. He is asking that I do that and then call the pt back. documented in this encounter [facility] 05-09-2023 Miscellaneous Notes 1st attempt,spoke with patient to reschedule her EMG. She was busy and asked to be called back in a couple days. documented in this encounter [facility] 03-05-2023 Note HNO ID: [id number] Author: Jhonny Ruiz APRN.PILOT BOAT OPERATOR Service: ? Author Type: Nurse Practitioner Type: [...] Influenza Vaccin (more content not included)... [facility] 01-02-2023 Note HNO ID: [id number] Author: Juan Montana MD Service: ? Author Type: Physician Type: Progress Notes Filed: 01/02/2023 10:05 AM Note Text: HISTORY AND PHYSICAL - BREAST COMPLAINT Fadia Pineda 1985 REFERRING PHYSICIAN: CHIEF COMPLAINT: Breast tenderness, [...] Smoking stat (more content not included)... [facility] 12-03-2022 Note HNO ID: [id number] Author: Zaida Gresham RDMS Service: ? Author Type: Assistant Bookkeeper Type: Progress Notes Filed: 12/03/2022 4:37 PM [...] RDMS December 03, 2022 4:37 PM [facility] 12-03-2022 Note HNO ID: [id number] Author: Love Fong Mammo Tech Service: ? Author Type: Assistant Bookkeeper Type: Progress Notes Filed: 12/03/2022 1:19 PM [...] Newman December 03, 2022 12:54 PM [facility] 12-03-2022 History of Presen t illness Narrative [...] 2022 4:37 PM documented in this encounter [facility] 11-28-2022 Note HNO ID: [id number] Author: Zaida Gresham RDMS Service: ? Author Type: Assistant Bookkeeper Type: Progress Notes Filed: 11/28/2022 11:46 AM [...] RDMS November 28, 2022 11:46 AM [facility] 11-28-2022 Note HNO ID: [id number] Author: Zaida Gresham RDMS Service: ? Author Type: Assistant Bookkeeper Type: Progress Notes Filed: 11/28/2022 11:45 AM [...] RDMS November 28, 2022 11:45 AM [facility] 11-28-2022 History of Presen t illness Narrative [...] 2022 11:46 AM documented in this encounter [facility] 11-20-2022 Miscellaneous Notes Ordered Xin Vyas PA-C Patient scheduled for nurse visit 11/22/22 to receive Hepatitis B vaccine. Please place order at this time. Daisy Bernal LPN documented in this encounter [facility] 11-18-2022 Note HNO ID: [id number] Author: Corey Sloan MD Service: ? Author [...] if not improving. Corey Sloan MD [facility] 11-18-2022 Note HNO ID: [id number] Author: Misty Perera RT(R) Service: Radiology Author [...] RT Jayda(R) November 18, 2022 1:45 PM [facility] 11-18-2022 History of Presen t illness Narrative [...] Corey Sloan MD documented in this encounter [facility] 11-08-2022 Note HNO ID: [id number] Author: Dayami Castaneda APRN.PILOT BOAT OPERATOR Service: ? Author Type: Nurse Practitioner Type: [...] Neck: Rivera (more content not included)... [facility] 11-08-2022 Instructions Dayami Castaneda APRN.CNP - 11/08/2022 11:45 AM EDT Have your labs drawn. Schedule your thyroid ultrasound. Schedule your abdominal ultrasound. Have your chest xray and hip xrays done. documented in this encounter [facility] 11-08-2022 History of Presen t illness Narrative [...] diet of 1000 mg/day for under 50, [id number] mg/day for 50+ - Follow up for [...] Z13.220 - LIPID PANEL BASIC Dayami Castaneda APRN.PILOT BOAT OPERATOR documented in this encounter [facility] 10-24-2022 Note HNO ID: [id number] Author: Rabia Romero APRN.PILOT BOAT OPERATOR Service: ? Author Type: Nurse Practitioner Type: [...] L4 SAB1 IAB0 Ectopic0 Multiple0 Live Births4 Event Coordinator Marketing And Sales History LMP: 09/27/2022 (Exact Date), Implant Age at Menarche: Age at First : Age at Menopause: Event Coordinator Marketing And Sales History Comments: Sexual Activity: Yes; Male; Nexplanon [...] external gen (more content not included)... [facility] 10-24-2022 History of Presen t illness Narrative [...] L4 SAB1 IAB0 Ectopic0 Multiple0 Live Births4 Event Coordinator Marketing And Sales History LMP: 09/27/2022 (Exact Date), Implant Age at Menarche: Age at First : Age at Menopause: Event Coordinator Marketing And Sales History Comments: Sexual Activity: Yes; Male; Nexplanon [...] GANGLION, WRIST 04/23/2005 right wrist LAPAROSCOPY DIAGNOSTIC 2014 no endometriosis seen NEXPLANON INSERTION 01/01/2022 FAMILY [...] external genitalia normal, normal Bartholin's glands, urethra, [place]'s glands, no vulvar lesions, no cervical lesions, [...] Rabia Romero APRN.JOSE documented in this encounter [facility] 06-25-2022 Note HNO ID: [id number] Author: Cody Cortes Service: ? Author Type: ? Type: Progress Notes Filed: 06/25/2022 4:21 PM Note Text: POPULATION HEALTH NAVIGATION OUTREACH Action/FYI RP Outreach: Patient Declined KINZA consult. Patient Identified by Name and : YES, via [facility] Outreach Outcome/Action Spoke to patient / parent / legal guardian: Patient declined Did you use a PCP flex slot to schedule this appointment? No Reason for Outreach Care Gap or Scheduling/Wellness visits Payer: Payor: [place] MEDICAID / Plan: [facility] MEDICAID / Product Type: Medicaid / Care Gap Reviewed:: ORQ Reminder: Reminder note to check Health Maintenance for items below Health Maintenance items due: HEPATITIS B(1 of 3 - 3-dose series) Never done COVID-19 VACCINE(1) Never done DEPRESSION ASSESSMENT Never done Navigation Signature: Cody Cortes June 25, 2022 4:21 PM [facility] 06-25-2022 History of Presen t illness Narrative POPULATION HEALTH NAVIGATION OUTREACH Action/FYI RP Outreach: Patient Declined KINZA consult. Patient Identified by Name and : YES, via [place] Outreach Outcome/Action Spoke to patient / parent / legal guardian: Patient declined Did you use a PCP flex slot to schedule this appointment? No Reason for Outreach Care Gap or Scheduling/Wellness visits Payer: Payor: [employer] MEDICAID / Plan: [facility] MEDICAID / Product Type: Medicaid / Care Gap Reviewed:: ORQ Reminder: Reminder note to check Health Maintenance for items below Health Maintenance items due: HEPATITIS B(1 of 3 - 3-dose series) Never done COVID-19 VACCINE(1) Never done DEPRESSION ASSESSMENT Never done Navigation Signature: Cody Cortes June 25, 2022 4:21 PM documented in this encounter [facility] 06-25-2022 Note Patient Outreach (RE FPHY) FADIA PINEDA ([id number]) 1985 F Date Time Provider Department 06/25/22 NO PCP (HISTORICAL) REFPHY During your visit today, we recorded the following information about you: Cody Cortes 06/25/2022 4:21 PM Signed POPULATION HEALTH NAVIGATION OUTREACH Action/ RP Outreach: Patient Declined KINZA consult. Patient Identified by Name and : YES, via [place] Outreach Outcome/Action Spoke to patient / parent / legal guardian: Patient declined Did you use a PCP flex slot to schedule this appointment? No Reason for Outreach Care Gap or Scheduling/Wellness visits Payer: Payor: [employer] MEDICAID / Plan: [facility] MEDICAID / Product Type: Medicaid / [...] complicating pregnanc (more content not included)... [facility] 06-16-2022 Miscellaneous Notes Patient given results and verbalized understanding of instructions given. Jesica Guo Patient was negative for trichomonas gonorrhea and chlamydia. Patient was positive for bacterial vaginosis and yeast infections neither are an STD. 2 different creams were called in to treat these please have patient case picker and follow directions on the cream thank you documented in this encounter [facility] 06-15-2022 Note HNO ID: [id number] Author: Radha Humphreys APRN.JOSE Service: ? Author [...] history is provided by the patient. No technical project coordinator was used. Vaginal Problem Review of Systems [...] okay with this care plan. Radha Humphreys APRN.[facility] 06-15-2022 History of Presen t illness Narrative Subjective Patient came in with complaints of vaginal itching. Patient says it started yesterday. Patient denies any other symptoms at this time. Patient's not concerned for an STD but would like STD testing at this time due to symptoms. The history is provided by the patient. No technical project coordinator was used. Vaginal Problem Review of Systems [...] okay with this care plan. Radha Humphreys APRN.CNP documented in this encounter [facility] 05-30-2022 Note HNO ID: [id number] Author: RT Jud(R) Service: Radiology Author Type: [...] Jud(R) May 30, 2022 9:41 AM [facility] 05-30-2022 Note HNO ID: [id number] Author: Lalo Tovar APRN.JOSE Service: ? Author Type: Nurse Practitioner [...] and mal (more content not included)... [facility] 05-30-2022 History of Presen t illness Narrative [...] of care. This note was generated using [employer] software. It may contain errors in wording, punctuation, or spelling. Lalo Tovar APRN.CNP documented in this encounter [facility] 02-15-2022 Miscellaneous Notes Pt returned call to [...] Bianka Landeros RN documented in this encounter [facility] 01-01-2022 Instructions Valencia Block LPN - 01/01/2022 11:31 AM EDT [...] to prevent . documented in this encounter [facility] 01-01-2022 History of Presen t illness Narrative [...] Care Visit completed when applicable. Rabia Romero APRN.PILOT BOAT OPERATOR TECHNIQUE: Patient placed in supine position with [...] Nexplanon removed intact without difficulty. Rabia Romero APRN.CNP Fadia is a 36 year old patient who presents for Nexplanon insertion. Patient's last menstrual period was 04/16/2021. VITALS: LMP 04/16/2021 test: n/a Nexplanon lot #: [id number] Exp date: 09/22/2023 TECHNIQUE: Patient placed in [...] Rabia Romero APRN.CNP documented in this encounter [facility] 12-25-2021 Miscellaneous Notes Orders signed. Rabia Romero APRN.CNP Patient is scheduled for Nexplanon removal and reinsertion. Please file pending orders. We will then attach to her upcoming appointment. Thank you. Nikki Hunt RN documented in this encounter [facility] 12-10-2021 Instructions Dayami Castaneda APRN.CNP - 12/10/2021 9:55 AM EDT Use the Flexeril for your neck. Let me know if this doesn't improve things. Make sure you are getting plenty of fluids and eating enough. A minimum of 64oz of water daily. Try drinking a [place] when you're out in the heat. Keep a snack with you-granola bar, cheese stick, yogurt, peanut butter crackers-something with some protein in it. Let me know if these episodes of lightheadedness/dizziness don't improve. documented in this encounter [facility] 12-10-2021 History of Presen t illness Narrative [...] diet of 1000 mg/day for under 50, 2737-2861 mg/day for 50+ 2. Lightheaded - ICD9: 780.4, ICD10: R42 Suspect dehydration and/or hypoglycemia. Discussed increasing water to minimum of 64oz daily, add [place] for electrolytes. Keep protein snack with her-do not go more than 3 hours without eating. - CBC - COMP METABOLIC PANEL - IRON + TIBC - FERRITIN BLD 3. Dizzy - ICD9: 780.4, ICD10: R42 Suspect dehydration and/or hypoglycemia. Discussed increasing water to minimum of 64oz daily, add [place] for electrolytes. Keep protein snack with her-do [...] Dayami Castaneda APRN.CNP documented in this encounter [facility] 10-09-2021 Miscellaneous Notes Patient called per myself [...] office with any further concerns. Rabia Romero APRN.JOSE Patient viewed her pelvic ultrasound results on too.met. Please review results. Thank you. Nikki Hunt RN documented in this encounter [facility] 10-04-2021 History of Presen t illness Narrative BV positive - metronidazole. 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 [employer] History Comments: Sexual Activity: Yes; Male; Nexplanon [...] external genitalia normal, normal Bartholin's glands, urethra, [place]'s glands, no vulvar lesions, no cervical lesions, [...] year or sooner as needed Rabia Romero APRN.JOSE documented in this encounter [facility] documented as of this encounter (statuses as of 10/03/2021) [facility] History of Past illness Narrative* Problem Noted Date Resolved Date Antepartum anemia complicating in firs t trimester 04/08/2018 12/07/2018 Overview: Anemia, add fe, check Fe levels. Becky Miller MD Positive urine drug screen 03/18/201804/08 Overview: 03/16/18 Positive cannabinoids. Rabia Romero APRN.CNP History of loss in prior , currently [...] approximately 31 weeks for 48 hours in [place]. She was given tocolytics and steroids. Went [...] Overview: Added automatically from request for surgery [id number] Thyromegaly 06/07/2016 03/16/2018 Cyclical vomiting with nausea [...] Overview: August 29, 2011 pt transferred to [place], await detailed report, per MFM needs 2x/wk [...] of this encounter (statuses as of 10/04/2021) [facility] History of Past illness Narrative* Problem Noted Date Resolved Date Antepartum anemia complicating in firs t trimester 04/08/2018 12/07/2018 Overview: Anemia, add fe, check Fe levels. Becky Miller MD Positive urine drug screen 03/18/201804/08 Overview: 03/16/18 Positive cannabinoids. Rabia Romero APRN.PILOT BOAT OPERATOR History of loss in prior , currently [...] approximately 31 weeks for 48 hours in [place]. She was given tocolytics and steroids. Went [...] and treated by a psychiatrist at [facility]. She was only on medication [...] Overview: Added automatically from request for surgery [id number] Thyromegaly 06/07/2016 03/16/2018 Cyclical vomiting with nausea [...] Overview: August 29, 2011 pt transferred to [place], await detailed report, per MFM needs 2x/wk NST's, repeat growth u/s in 3 weeks -sm UTI (urinary tract infection) during 0 08/07/2011 11/19/2012 High-risk 07/22/2011 11/19/2012 Overview: Weekly NSTs- growth 12%ile, fu US on 09/19 History of 22 week delivery after cerclage placed at 14 weeks. Subsequent term after. No cerclage last [facility] History of gonorrhea 07/22/2011 11/19/2012 Overview: OMI neg, repeat at 36 weeks Vulvar abscess 04/12/2011 06/24/2011 Chronic pelvic pain in female 10/19/2010 Frequent stools 10/19/2010 06/24/2011 SUPRF HIGH RISK NEC [V23.89] 0 03/05/2010 Abdominal pain, right upper quadrant 05/24/2009 06/24/2011 documented as of this encounter (statuses as of 10/05/2021) [facility] History of Past illness Narrative* Problem Noted Date Resolved Date Antepartum anemia complicating in firs t trimester 04/08/2018 12/07/2018 Overview: Anemia, add fe, check Fe levels. Becky Miller MD Positive urine drug screen 03/18/201804/08 Overview: 03/16/18 Positive cannabinoids. Rabia Romero, AUTOMOTIVE SHOP FOREMAN.PILOT BOAT OPERATOR History of loss in prior , currently [...] approximately 31 weeks for 48 hours in [place]. She was given tocolytics and steroids. Went [...] Overview: Added automatically from request for surgery [id number] Thyromegaly 06/07/2016 03/16/2018 Cyclical vomiting with nausea [...] Overview: August 29, 2011 pt transferred to [place], await detailed report, per MFM needs 2x/wk NST's, repeat growth u/s in 3 weeks -sm UTI (urinary tract infection) during 0 08/07/2011 11/19/2012 High-risk 07/22/2011 11/19/2012 Overview: Weekly NSTs- growth 12%ile, fu US on 09/19 History of 22 week delivery after cerclage placed at 14 weeks. Subsequent term after. No cerclage last [facility] History of gonorrhea 07/22/2011 11/19/2012 Overview: OMI neg, repeat at 36 weeks Vulvar abscess 04/12/2011 06/24/2011 Chronic pelvic pain in female 10/19/2010 Frequent stools 10/19/2010 06/24/2011 SUPRF HIGH RISK NEC [V23.89] 0 03/05/2010 Abdominal pain, right upper quadrant 05/24/2009 06/24/2011 documented as of this encounter (statuses as of 10/09/2021) [facility] History of Past illness Narrative* Problem Noted Date Resolved Date Antepartum anemia complicating in firs t trimester 04/08/2018 12/07/2018 Overview: Anemia, add fe, check Fe levels. Becky Miller MD Positive urine drug screen 03/18/201804/08 Overview: 03/16/18 Positive cannabinoids. Rabia Romero APRN.PILOT BOAT OPERATOR History of loss in prior , currently [...] approximately 31 weeks for 48 hours in [place]. She was given tocolytics and steroids. Went [...] Overview: Added automatically from request for surgery [id number] Thyromegaly 06/07/2016 03/16/2018 Cyclical vomiting with nausea [...] Overview: August 29, 2011 pt transferred to [place], await detailed report, per MFM needs 2x/wk NST's, repeat growth u/s in 3 weeks -sm UTI (urinary tract infection) during 0 08/07/2011 11/19/2012 High-risk 07/22/2011 11/19/2012 Overview: Weekly NSTs- growth 12%ile, fu US on 09/19 History of 22 week delivery after cerclage placed at 14 weeks. Subsequent term after. No cerclage last or this Boy on [facility] History of gonorrhea 07/22/2011 11/19/2012 Overview: OMI neg, repeat at 36 weeks Vulvar abscess 04/12/2011 06/24/2011 Chronic pelvic pain in female 10/19/2010 Frequent stools 10/19/2010 06/24/2011 SUPRF HIGH RISK NEC [V23.89] 0 03/05/2010 Abdominal pain, right upper quadrant 05/24/2009 06/24/2011 documented as of this encounter (statuses as of 12/10/2021) [facility] History of Past illness Narrative* Problem Noted Date Resolved Date Antepartum anemia complicating in firs t trimester 04/08/2018 12/07/2018 Overview: Anemia, add fe, check Fe levels. Becky Miller MD Positive urine drug screen 03/18/201804/08 Overview: 03/16/18 Positive cannabinoids. Rabia Romero, AUTOMOTIVE SHOP FOREMAN.PILOT BOAT OPERATOR History of loss in prior , currently [...] approximately 31 weeks for 48 hours in [place]. She was given tocolytics and steroids. Went [...] and treated by a psychiatrist at [facility]. She was only on medication [...] Overview: Added automatically from request for surgery [id number] Thyromegaly 06/07/2016 03/16/2018 Cyclical vomiting with nausea [...] Overview: August 29, 2011 pt transferred to [place], awa detailed report, per [facility] needs 2x/wk NST's, repeat growth u/s in 3 weeks -sm UTI (urinary tract infection) during 0 08/07/2011 11/19/2012 High-risk 07/22/2011 11/19/2012 Overview: Weekly NSTs- growth 12%ile, fu US on 09/19 History of 22 week delivery after cerclage placed at 14 weeks. Subsequent term after. No cerclage last [facility] History of gonorrhea 07/22/2011 11/19/2012 Overview: OMI neg, repeat at 36 weeks Vulvar abscess 04/12/2011 06/24/2011 Chronic pelvic pain in female 10/19/2010 Frequent stools 10/19/2010 06/24/2011 SUPRF HIGH RISK NEC [V23.89] 0 03/05/2010 Abdominal pain, right upper quadrant 05/24/2009 06/24/2011 documented as of this encounter (statuses as of 12/25/2021) [facility] History of Past illness Narrative* Problem Noted Date Resolved Date Antepartum anemia complicating in firs t trimester 04/08/2018 12/07/2018 Overview: Anemia, add fe, check Fe levels. Becky Miller MD Positive urine drug screen 03/18/201804/08 Overview: 03/16/18 Positive cannabinoids. Rabia Romero APRN.PILOT BOAT OPERATOR History of loss in prior , currently [...] approximately 31 weeks for 48 hours in [place]. She was given tocolytics and steroids. Went [...] Overview: Added automatically from request for surgery [id number] Thyromegaly 06/07/2016 03/16/2018 Cyclical vomiting with nausea [...] Overview: August 29, 2011 pt transferred to [place], await detailed report, per MFM needs 2x/wk [...] of this encounter (statuses as of 01/01/2022) [facility] History of Past illness Narrative* Problem Noted Date Resolved Date Antepartum anemia complicating in firs t trimester 04/08/2018 12/07/2018 Overview: Anemia, add fe, check Fe levels. Becky Miller MD Positive urine drug screen 03/18/201804/08 Overview: 03/16/18 Positive cannabinoids. Rabia Romero APRN.PILOT BOAT OPERATOR History of loss in prior , currently [...] approximately 31 weeks for 48 hours in [place]. She was given tocolytics and steroids. Went [...] Overview: Added automatically from request for surgery [id number] Thyromegaly 06/07/2016 03/16/2018 Cyclical vomiting with nausea [...] Overview: August 29, 2011 pt transferred to [place], await detailed report, per MFM needs 2x/wk NST's, repeat growth u/s in 3 weeks -sm UTI (urinary tract infection) during 0 08/07/2011 11/19/2012 High-risk 07/22/2011 11/19/2012 Overview: Weekly NSTs- growth 12%ile, fu US on 09/19 History of 22 week delivery after cerclage placed at 14 weeks. Subsequent term after. No cerclage last or this Boy on [facility]- [facility] History of gonorrhea 07/22/2011 11/19/2012 Overview: OMI neg, repeat at 36 weeks Vulvar abscess 04/12/2011 06/24/2011 Chronic pelvic pain in female 10/19/2010 Frequent stools 10/19/2010 06/24/2011 SUPRF HIGH RISK NEC [V23.89] 0 03/05/2010 Abdominal pain, right upper quadrant 05/24/2009 06/24/2011 documented as of this encounter (statuses as of 02/15/2022) [facility] History of Past illness Narrative* Problem Noted Date Resolved Date Antepartum anemia complicating in firs t trimester 04/08/2018 12/07/2018 Overview: Anemia, add fe, check Fe levels. Becky Miller MD Positive urine drug screen 03/18/201804/08 Overview: 03/16/18 Positive cannabinoids. Rabia Romero APRN.PILOT BOAT OPERATOR History of loss in prior , currently [...] approximately 31 weeks for 48 hours in [place]. She was given tocolytics and steroids. Went [...] Overview: Added automatically from request for surgery [id number] Thyromegaly 06/07/2016 03/16/2018 Cyclical vomiting with nausea [...] Overview: August 29, 2011 pt transferred to [place], await detailed report, per MFM needs 2x/wk [...] of this encounter (statuses as of 05/30/2022) [facility] History of Past illness Narrative* Problem Noted Date Resolved Date Antepartum anemia complicating in firs t trimester 04/08/2018 12/07/2018 Overview: Anemia, add fe, check Fe levels. Becky Miller MD Positive urine drug screen 03/18/201804/08 Overview: 03/16/18 Positive cannabinoids. Rabia Romero APRN.PILOT BOAT OPERATOR History of loss in prior , currently [...] approximately 31 weeks for 48 hours in [place]. She was given tocolytics and steroids. Went [...] Overview: Added automatically from request for surgery [id number] Thyromegaly 06/07/2016 03/16/2018 Cyclical vomiting with nausea [...] Overview: August 29, 2011 pt transferred to [place], await detailed report, per MFM needs 2x/wk NST's, repeat growth u/s in 3 weeks -sm UTI (urinary tract infection) during 0 08/07/2011 11/19/2012 High-risk 07/22/2011 11/19/2012 Overview: Weekly NSTs- growth 12%ile, fu US on 09/19 History of 22 week delivery after cerclage placed at 14 weeks. Subsequent term after. No [facility]age last [facility] History of gonorrhea 07/22/2011 11/19/2012 Overview: OMI neg, repeat at 36 weeks Vulvar abscess 04/12/2011 06/24/2011 Chronic pelvic pain in female 10/19/2010 Frequent stools 10/19/2010 06/24/2011 SUPRF HIGH RISK NEC [V23.89] 0 03/05/2010 Abdominal pain, right upper quadrant 05/24/2009 06/24/2011 documented as of this encounter (statuses as of 06/15/2022) [facility] of Past illness Narrative* Problem Noted Date Resolved Date Antepartum anemia complicating in firs t trimester 04/08/2018 12/07/2018 Overview: Anemia, add fe, check Fe levels. Becky Miller MD Positive urine drug screen 03/18/201804/08 Overview: 03/16/18 Positive cannabinoids. Rabia Romero, AUTOMOTIVE SHOP FOREMAN.PILOT BOAT OPERATOR History of loss in prior , currently [...] approximately 31 weeks for 48 hours in [place]. She was given tocolytics and steroids. Went [...] and treated by a psychiatrist at [facility]. She was only on medication [...] Overview: Added automatically from request for surgery [id number] Thyromegaly 06/07/2016 03/16/2018 Cyclical vomiting with nausea [...] Overview: August 29, 2011 pt transferred to [place], await detailed report, per [facility] needs 2x/wk NST's, repeat growth u/s in 3 weeks -sm UTI (urinary tract infection) during 0 08/07/2011 11/19/2012 High-risk 07/22/2011 11/19/2012 Overview: Weekly NSTs- growth 12%ile, fu US on 09/19 History of 22 week delivery after cerclage placed at 14 weeks. Subsequent term after. No cerclage last [facility] History of gonorrhea 07/22/2011 11/19/2012 Overview: OMI neg, repeat at 36 weeks Vulvar abscess 04/12/2011 06/24/2011 Chronic pelvic pain in female 10/19/2010 Frequent stools 10/19/2010 06/24/2011 SUPRF HIGH RISK NEC [V23.89] 0 03/05/2010 Abdominal pain, right upper quadrant 05/24/2009 06/24/2011 documented as of this encounter (statuses as of 06/16/2022) [facility] of Past illness Narrative* Problem Noted Date Resolved Date Antepartum anemia complicating in firs t trimester 04/08/2018 12/07/2018 Overview: Anemia, add fe, check Fe levels. Becky Miller MD Positive urine drug screen 03/18/201804/08 Overview: 03/16/18 Positive cannabinoids. Rabia Romero APRN.PILOT BOAT OPERATOR History of loss in prior , currently [...] approximately 31 weeks for 48 hours in [place]. She was given tocolytics and steroids. Went [...] Overview: Added automatically from request for surgery [id number] Thyromegaly 06/07/2016 03/16/2018 Cyclical vomiting with nausea [...] Overview: August 29, 2011 pt transferred to [place], await detailed report, per [facility] needs 2x/wk NST's, repeat growth u/s in 3 weeks -sm UTI (urinary tract infection) during 0 08/07/2011 11/19/2012 High-risk 07/22/2011 11/19/2012 Overview: Weekly NSTs- growth 12%ile, fu US on 09/19 History of 22 week delivery after cerclage placed at 14 weeks. Subsequent term after. No cerclage last or this Boy on [facility] History of gonorrhea 07/22/2011 11/19/2012 Overview: OMI neg, repeat at 36 weeks Vulvar abscess 04/12/2011 06/24/2011 Chronic pelvic pain in female 10/19/2010 Frequent stools 10/19/2010 06/24/2011 SUPRF HIGH RISK NEC [V23.89] 0 03/05/2010 Abdominal pain, right upper quadrant 05/24/2009 06/24/2011 documented as of this encounter (statuses as of 06/26/2022) [facility] of Past illness Narrative* Problem Noted Date Diagnosed Date Resolved Date Antepartum anemia complicati ng in first trimester 04/08/2018 12/07/2018 Overview: Anemia, add fe, check Fe levels. Becky Miller MD Positive urine drug screen 03/18/2018 0 04/08/2018 Overview: 03/16/18 Positive cannabinoids. Rabia Romero, AUTOMOTIVE SHOP FOREMAN.PILOT BOAT OPERATOR History of loss in prior , currently [...] approximately 31 weeks for 48 hours in [place]. She was given tocolytics and steroids. Went [...] and treated by a psychiatrist at [facility]. She was only on medication [...] Overview: Added automatically from request for surgery [id number] Thyromegaly 06/07/2016 03/16/2018 Cyclical vomiting with nausea 06/07/2016 03/16/2018 History of loss 07/18/20142018 Overview: History of loss at 22 weeks, cerclage had been placed due to shortening at 14 High-risk 07/18/2014 12/29/20 15 Overview: Boy on - [place] Nausea/vomiting in 07/18/2014 03/21/2015 Dorsal wrist ganglion 11/13/20122012 Small for gestational age fe tus affecting mother, antepartum 09/16/2011 11/19/2012 Overview: 09/16- Last growth us 36%ile Threatened labor 08/26/2011 Overview: August 29, 2011 pt transferred to [place], await detailed report, per MFM needs 2x/wk NST's, repeat growth u/s in 3 weeks -sm UTI (urinary tract infection ) during 08/07/2011 11/19/2012 High-risk 07/22/2011 11/20/19 13 Overview: Weekly NSTs- growth 12%ile, fu US on 09/19 History of 22 week delivery after cerclage placed at 14 weeks. Subsequent term after. No cerclage last [facility] History of gonorrhea 07/22/2011 013 Overview: OMI neg, repeat at 36 weeks Vulvar abscess 04/12/2011 06/24/2011 Chronic pelvic pain in female 10/19/2010 06/24/2011 Frequent stools 10/19/2010 06/24/2011 SUPRF HIGH RISK NEC [V23.89] 11/02/2009 03/05/2010 Abdominal pain, right upper quadrant 05/24/2009 06/24/2011 documented as of this encounter (statuses as of 10/24/2022) [facility] of Past illness Narrative* Problem Noted Date Diagnosed Date Resolved Date Antepartum anemia complicati ng in first trimester 04/08/2018 12/07/2018 Overview: Anemia, add fe, check Fe levels. Becky Miller MD Positive urine drug screen 03/18/2018 0 04/08/2018 Overview: 03/16/18 Positive cannabinoids. Rabia Romero, AUTOMOTIVE SHOP [employer]EM[employer].PILOT BOAT OPERATOR History of loss in prior , currently [...] approximately 31 weeks for 48 hours in [place]. She was given tocolytics and steroids. Went [...] Overview: Added automatically from request for surgery [id number] Thyromegaly 06/07/2016 03/16/2018 Cyclical vomiting with nausea [...] Overview: August 29, 2011 pt transferred to [place], await detailed report, per [facility]FM needs 2x/wk [...] of this encounter (statuses as of 11/12/2022) [facility]01-16-2019 History of Past illness Narrative* Problem Noted Date Diagnosed Date Resolved Date Antepartum anemia complicati ng in first trimester 04/08/2018 12/07/2018 Overview: Anemia, add fe, check Fe levels. Becky Miller MD Positive urine drug screen 03/18/2018 0 04/08/2018 Overview: 03/16/18 Positive cannabinoids. Rabia Romero, AUTOMOTIVE SHOP FOREMAN.PILOT BOAT OPERATOR History of loss in prior , currently [...] approximately 31 weeks for 48 hours in [place]. She was given tocolytics and steroids. Went [...] Overview: Added automatically from request for surgery [id number] Thyromegaly 06/07/2016 03/16/2018 Cyclical vomiting with nausea [...] Overview: August 29, 2011 pt transferred to [place], await detailed report, per [facility] needs 2x/wk NST's, repeat growth u/s in 3 weeks -sm UTI (urinary tract infection ) during 08/07/2011 11/19/2012 High-risk 07/22/2011 11/20/19 13 Overview: Weekly NSTs- growth 12%ile, fu US on 09/19 History of 22 week delivery after cerclage placed at 14 weeks. Subsequent term after. No cerclage last or this Boy on US- [facility] History of gonorrhea 07/22/2011 013 Overview: OMI neg, repeat at 36 weeks Vulvar abscess 04/12/2011 06/24/2011 Chronic pelvic pain in female 10/19/2010 06/24/2011 Frequent stools 10/19/2010 06/24/2011 SUPRF HIGH RISK NEC [V23.89] 11/02/2009 03/05/2010 Abdominal pain, right upper quadrant 05/24/2009 06/24/2011 documented as of this encounter (statuses as of 11/19/2022) [facility] History of Past illness Narrative* Problem Noted Date Diagnosed Date Resolved Date Antepartum anemia complicati ng in first trimester 04/08/2018 12/07/2018 Overview: Anemia, add fe, check Fe levels. Becky Miller MD Positive urine drug screen 03/18/2018 0 04/08/2018 Overview: 03/16/18 Positive cannabinoids. Rabia Romero APRN.PILOT BOAT OPERATOR History of loss in prior , currently [...] approximately 31 weeks for 48 hours in [place]. She was given tocolytics and steroids. Went [...] Overview: Added automatically from request for surgery [id number] Thyromegaly 06/07/2016 03/16/2018 Cyclical vomiting with nausea [...] Overview: August 29, 2011 pt transferred to [place], await detailed report, per [facility] needs 2x/wk NST's, repeat growth u/s [...] of this encounter (statuses as of 11/20/2022) [facility] History of Past illness Narrative* Problem Noted Date Diagnosed Date Resolved Date Antepartum anemia complicati ng in first trimester 04/08/2018 12/07/2018 Overview: Anemia, add fe, check Fe levels. Becky Miller MD Positive urine drug screen 03/18/2018 0 04/08/2018 Overview: 03/16/18 Positive cannabinoids. Rabia Romero, AUTOMOTIVE SHOP FOREMAN.PILOT BOAT OPERATOR History of loss in prior , currently [...] approximately 31 weeks for 48 hours in [place]. She was given tocolytics and steroids. Went [...] Overview: Added automatically from request for surgery [id number] Thyromegaly 06/07/2016 03/16/2018 Cyclical vomiting with nausea [...] Overview: August 29, 2011 pt transferred to [place], await detailed report, per [facility] needs 2x/wk NST's, repeat growth u/s in 3 weeks -sm UTI (urinary tract infection ) during 08/07/2011 11/19/2012 High-risk 07/22/2011 11/20/19 13 Overview: Weekly NSTs- growth 12%ile, fu US on 09/19 History of 22 week delivery after cerclage placed at 14 weeks. Subsequent term after. No cerclage last or this Boy on US- [facility] History of gonorrhea 07/22/2011 013 Overview: OMI neg, repeat at 36 weeks Vulvar abscess 04/12/2011 06/24/2011 Chronic pelvic pain in female 10/19/2010 06/24/2011 Frequent stools 10/19/2010 06/24/2011 SUPRF HIGH RISK NEC [V23.89] 11/02/2009 03/05/2010 Abdominal pain, right upper quadrant 05/24/2009 06/24/2011 documented as of this encounter (statuses as of 01/26/2023) [facility] History of Past illness Narrative* Problem Noted Date Diagnosed Date Resolved Date Antepartum anemia complicati ng in first trimester 04/08/2018 12/07/2018 Overview: Anemia, add fe, check Fe levels. Becky Miller MD Positive urine drug screen 03/18/2018 0 04/08/2018 Overview: 03/16/18 Positive cannabinoids. Rabia Romero, AUTOMOTIVE SHOP FOREMAN.PILOT BOAT OPERATOR History of loss in prior , currently [...] approximately 31 weeks for 48 hours in [place]. She was given tocolytics and steroids. Went [...] Overview: Added automatically from request for surgery [id number] Thyromegaly 06/07/2016 03/16/2018 Cyclical vomiting with nausea [...] Overview: August 29, 2011 pt transferred to [place], await detailed report, per [facility] needs 2x/wk [...] of this encounter (statuses as of 01/26/2023) [facility]2019 History of Past illness Narrative* Problem Noted Date Diagnosed Date Resolved Date Antepartum anemia complicati ng in first trimester 04/08/2018 12/07/2018 Overview: Anemia, add fe, check Fe levels. Becky Miller MD Positive urine drug screen 03/18/2018 0 04/08/2018 Overview: 03/16/18 Positive cannabinoids. Rabia Romero APRN.PILOT BOAT OPERATOR History of loss in prior , currently [...] approximately 31 weeks for 48 hours in [place]. She was given tocolytics and steroids. Went [...] Overview: Added automatically from request for surgery [id number] Thyromegaly 06/07/2016 03/16/2018 Cyclical vomiting with nausea [...] Overview: August 29, 2011 pt transferred to [place], await detailed report, per [facility] needs 2x/wk NST's, repeat growth u/s in 3 weeks -sm UTI (urinary tract infection ) during 08/07/2011 11/19/2012 High-risk 07/22/2011 11/20/19 13 Overview: Weekly NSTs- growth 12%ile, fu US on 09/19 History of 22 week delivery after cerclage placed at 14 weeks. Subsequent term after. No cerclage last or this Boy on - [facility] History of gonorrhea 07/22/2011 013 Overview: OMI neg, repeat at 36 weeks Vulvar abscess 04/12/2011 06/24/2011 Chronic pelvic pain in female 10/19/2010 06/24/2011 Frequent stools 10/19/2010 06/24/2011 SUPRF HIGH RISK NEC [V23.89] 11/02/2009 03/05/2010 Abdominal pain, right upper quadrant 05/24/2009 06/24/2011 documented as of this encounter (statuses as of 05/09/2023) [facility] History of Past illness Narrative* Problem Noted Date Diagnosed Date Resolved Date Antepartum anemia complicati ng in first trimester 04/08/2018 12/07/2018 Overview: Anemia, add fe, check Fe levels. Becky Miller MD Positive urine drug screen 03/18/2018 0 04/08/2018 Overview: 03/16/18 Positive cannabinoids. Rabia Romero, AUTOMOTIVE SHOP FOREMAN.PILOT BOAT OPERATOR History of loss in prior , currently [...] approximately 31 weeks for 48 hours in [place]. She was given tocolytics and steroids. Went [...] and treated by a psychiatrist at [facility]. She was only on medication [...] Overview: Added automatically from request for surgery [id number] Thyromegaly 06/07/2016 03/16/2018 Cyclical vomiting with nausea [...] Overview: August 29, 2011 pt transferred to [place], awa detailed report, per [facility] needs 2x/wk NST's, repeat growth u/s in 3 weeks -sm UTI (urinary tract infection ) during 08/07/2011 11/19/2012 High-risk 07/22/2011 11/20/19 13 Overview: Weekly NSTs- growth 12%ile, fu US on 09/19 History of 22 week delivery after cerclage placed at 14 weeks. Subsequent term after. [facility] History of gonorrhea 07/22/2011 013 Overview: OMI neg, repeat at 36 weeks Vulvar abscess 04/12/2011 06/24/2011 Chronic pelvic pain in female 10/19/2010 06/24/2011 Frequent stools 10/19/2010 06/24/2011 SUPRF HIGH RISK NEC [V23.89] 11/02/2009 03/05/2010 Abdominal pain, right upper quadrant 05/24/2009 06/24/2011 documented as of this encounter (statuses as of 05/12/2023) [facility] History of Past illness Narrative* Problem Noted Date Diagnosed Date Resolved Date Antepartum anemia complicati ng in first trimester 04/08/2018 12/07/2018 Overview: Anemia, add fe, check Fe levels. Becky Miller MD Positive urine drug screen 03/18/2018 0 04/08/2018 Overview: 03/16/18 Positive cannabinoids. Rabia Romero APRN.PILOT BOAT OPERATOR History of loss in prior , currently [...] approximately 31 weeks for 48 hours in [place]. She was given tocolytics and steroids. Went [...] Overview: Added automatically from request for surgery [id number] Thyromegaly 06/07/2016 03/16/2018 Cyclical vomiting with nausea [...] Overview: August 29, 2011 pt transferred to [place], await detailed report, per [facility] needs 2x/wk [...] as of this encounter (statuses as of 05/13/2023) [facility] Diagnosis Encounter for gynecological examination with abnormal finding- Primary Routine gynecological examination Pelvic pain in female Unspecified symptom associated with female genital organs Deep dyspareunia Vaginal discharge Leukorrhea, not specified as infective Irritable bowel syndrome with both constipation and diarrhea documented [facility] this [facility] Diagnosis BV (bacterial vaginosis)- Primary Vaginitis and vulvovaginitis, unspecified [facility] this [facility] Diagnosis Pelvic pain in female- Primary Unspecified symptom associated with female genital organs documented [facility] Diagnosis Well adult exam- Primary Routine general medical examination at a health care facility Lightheaded Dizziness and giddiness Dizzy Dizziness and giddiness Neck pain on left side Cervicalgia Muscle spasm Spasm of muscle documented [facility] this [facility]* Diagnosis Encounter for removal and reinsertion of Nexplanon- Primary documented [facility] this encounter [facility]* Diagnosis Encounter for removal and reinsertion of Nexplanon- Primary [facility] Diagnosis Wrist pain, acute, left- Primary [facility]* Diagnosis Vaginal itching- Primary Pruritus of genital organs [facility] Diagnosis Encounter for gynecological examination with abnormal finding- Primary Routine gynecological examination Mastalgia Mastodynia Mass of left breast, unspecified quadrant documented [facility] this encounter [facility]* Diagnosis Well adult exam- Primary Routine [...] for lipid disorders documented in this encounter [facility] Diagnosis 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 documented in this encounter [facility]* Diagnosis Need for vaccination- Primary Need for prophylactic vaccination and inoculation against unspecified single disease [facility] this [facility] Diagnosis Mastalgia Mastodynia Mass of left breast, unspecified quadrant documented in this encounter [facility] note* Diagnosis Thyroid goiter Goiter, unspecified documented in this encounter [facility] for referral (narrative)* Outpatient Procedure (Routine) - Authorized Specialty Diagnoses / Procedures Referred By Crow holland Referred To Contact [facility] Diagnoses Encounter for removal and reinsertion of Nexplanon Encounter for initial prescription of implantable subdermal contraceptive Procedures NEXPLANON INSERTION ETONOGESTREL IMPLANT SYSTEM INSERT DRUG IMPLANT DEVICE REMOVAL NON-BIODEGRADABLE DRUG DELIVERY IMPLANT Rabia Romero APRN.CNP [address] [place] [id number] [facility] [address] [place], [place] [id number] Referral ID Status Reason Start Date Expiration Date Visits Requested Visits Authorized [id number] Authorized Auto-Generat ed Referral 12/25/2021 03/23/2022 2 2 * Outpatient Procedure (Routine) - Closed Specialty Diagnoses / Procedures Referred By rCow holland Referred To Contact [facility] Diagnoses Encounter for removal and reinsertion of Nexplanon Procedures NEXPLANON REMOVAL REMOVAL NON-BIODEGRADABLE DRUG DELIVERY IMPLANT Rabia Romero APRN.CNP [address] [place] [address] [place] [phone] Referral ID Status Reason Start Date Expiration Date V isits Requested Visits Authorized [id number] Closed Auto-Generate d Referral 12/25/2021 12/24/2022 1 1 [facility] for referral (narrative)* Outpatient Procedure (Routine) - Pending Review Specialty Diagnoses / Procedures Referred By Crow holland Referred To Contact [facility] Diagnoses Encounter for removal and reinsertion of Nexplanon Procedures NEXPLANON INSERTION ETONOGESTREL IMPLANT SYSTEM INSERT DRUG IMPLANT DEVICE Rabia Romero APRN.PILOT BOAT OPERATOR [address] [place] [address] [facility] [address] [place] [address] Referral ID Status Reason Start Date Expiration Date Visits Requested Visits Authorized [id number] Pending Review Auto-Generat ed Referral 01/01/2023 1 1 [facility] for referral (narrative)* Diagnostic Procedure Only (Routine) - Authorized Specialty Diagnoses / Procedures Referred By Crow holland Referred To Contact [facility] Diagnoses Mastalgia Mass of left breast, unspecified quadrant Procedures KATHARINE DIAGNOSTIC BILATERAL DIAGNOSTIC MAMMOGRAPHY COMPUTER-AIDED DETCJ BI Rabia Romero APRN.PILOT BOAT OPERATOR [address] [place] [address] [facility] [address] [place] [address] Referral ID Status Reason Start Date Expiration Date Visits Requested Visits Authorized [id number] Authorized Auto-Generat ed Referral 10/24/2022 11/23/2023 1 1 * Diagnostic Procedure Only (Routine) - Authorized Specialty Diagnoses / Procedures Referred By Crow holland Referred To Contact [facility] Diagnoses Mastalgia Mass of left breast, unspecified quadrant Procedures US BREAST LTD LEFT US BREAST UNI REAL TIME WITH IMAGE LIMITED Rabia Romero APRN.PILOT BOAT OPERATOR [address] [place] [address] [facility] [address] [place] [address] Referral ID Status Reason Start Date Expiration Date Visits Requested Visits Authorized [id number] Authorized Auto-Generat ed Referral 10/24/2022 11/23/2023 1 1 [facility] for referral (narrative)* Diagnostic Procedure Only (Routine) - Pending Review Specialty Diagnoses / Procedures Referred By Contac t Referred To Contact [facility] Diagnoses Muscle spasm Generalized abdominal pain Pain of right hip Procedures US ABDOMEN COMPLETE US ABDOMINAL REAL TIME W/IMAGE DOCUMENTATION Dayami Castaneda APRN.PILOT BOAT OPERATOR [address] [place] [address] [place] [address] Referral ID Status Reason Start Date Expiration Date Visits Requested Visits Authorized [id number] Pending Review Auto-Generat ed Referral 11/08/2022 12/08/2023 1 1 * Diagnostic Procedure Only (Routine) - Pending Review Specialty Diagnoses / Procedures Referred By Contac t Referred To Contact X[facility]ING Diagnoses Muscle spasm Pain of right hip Procedures XR HIP BILATERAL 5V PEL/AP/LAT EACH HIP RADEX HIPS BILATERAL WITH PELVIS MINIMUM 5 VIEWS Dayami Castaneda APRN.PILOT BOAT OPERATOR [address] [place] [phone] [place] [address] Referral ID Status Reason Start Date Expiration Date Visits Requested Visits Authorized [id number] Pending Review Auto-Generat ed Referral 11/08/2022 12/08/2023 1 1 * Diagnostic Procedure Only (Routine) - Pending Review Specialty Diagnoses / Procedures Referred By Contac t Referred To Contact [facility] Diagnoses Muscle spasm Procedures US ABD RIGHT UPPER QUADRANT US ABDOMINAL REAL TIME W/IMAGE LIMITED Dayami Castaneda APRN.CNP [address] [place] [phone] [place] [address] Referral ID Status Reason Start Date Expiration Date Visits Requested Visits Authorized [id number] Pending Review Auto-Generat ed Referral 11/08/2022 12/08/2023 1 1 [facility] for referral (narrative)* Diagnostic Procedure Only (Routine) - Closed Specialty Diagnoses / Procedures Referred By Contac t Referred To Contact [facility] Diagnoses Mastalgia Mass of left breast, unspecified quadrant Procedures US BREAST LTD LEFT US BREAST UNI REAL TIME WITH IMAGE LIMITED Rabia Romero APRN.PILOT BOAT OPERATOR [address] [place] [place] [address] [facility] [address] [place] [address] Referral ID Status Reason Start Date Expiration Date V isits Requested Visits Authorized [id number] Closed Auto-Generate d Referral 10/24/2022 11/23/2023 1 1 [facility] for referral (narrative)* Diagnostic Procedure Only (Routine) - Closed Specialty Diagnoses / Procedures Referred By Contac t Referred To Contact [facility] Diagnoses Thyroid goiter Procedures US THYROID/PARATHYROID US SOFT TISSUE HEAD & NECK REAL TIME IMGE Jhonny Jett APRN.PILOT BOAT OPERATOR [address] [place] [address] [place] [address] Referral ID Status Reason Start Date Expiration Date V isits Requested Visits Authorized [id number] Closed Auto-Generate d Referral 11/15/2022 12/15/2023 1 1 [facility] Reason for Referral Specialty Diagnoses / Procedures Referred By Contac t Referred To Contact Gastroenterology Diagnoses Irritable bowel syndrome with both constipation and diarrhea Procedures CONSULT TO GASTROENTEROLOGY OFFICE/OUTPATIENT [facility] MDM 60-74 MINUTES Rabia Romero APRN.PILOT BOAT OPERATOR [address] [place] [address] Referral ID Status Reason Start Date Expiration Date Visits Requested Visits Authorized [id number] Authorized PCP Requested Referral 10/03/2021 10/03/2022 1 1 Specialty Diagnoses / Procedures Referred By Contac t Referred To Contact [facility] Diagnoses Pelvic pain in female Deep dyspareunia Procedures PELVIC US WHI US PELVIC NONOBSTETRIC REAL-TIME IMAGE COMPLETE Rabia Romero AUTOMOTIVE SHOP FOREMAN.PILOT BOAT OPERATOR [address] [place] [address] [facility] [address] [place] [address] Referral ID Status Reason Start Date Expiration Date Visits Requested Visits Authorized [id number] Authorized Auto-Generat ed Referral 10/03/2021 10/03/2022 1 1 Specialty Diagnoses / Procedures Referred By Contac t Referred To Contact Orthopedics Diagnoses Wrist pain, acute, left Procedures CONSULT TO ORTHOPAEDICS OFFICE/OUTPATIENT [facility] 60-74 MINUTES Lalo Tovar, AUTOMOTIVE SHOP FOREMAN.PILOT BOAT OPERATOR [address] [place] [address] Referral ID Status Reason Start Date Expiration Date Visits Requested Visits Authorized [id number] Authorized PCP Requested Referral 05/30/2022 05/30/2023 1 1 Specialty Diagnoses / Procedures Referred By Contac t Referred To Contact XR IMAGING Diagnoses Wrist pain, acute, left Procedures XR WRIST INJURY 4V PA/LAT/OBL/SCAPH LEFT RADEX WRIST COMPLETE MINIMUM 3 VIEWS Lalo Tovar, AUTOMOTIVE SHOP FOREMAN.PILOT BOAT OPERATOR [address] [place] [address] [facility] Referral ID Status Reason Start Date Expiration Date V isits Requested Visits Authorized [id number] Closed Auto-Generate d Referral 05/30/2022 06/29/2023 1 1 Advance Directives Documents on File Type Date Recorded 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 Production Operator Expl anation Advance Directive(s) 01/19/2018 11:36 AM Documents on File Type Date Recorded Patient Production Operator Expl anation Advance Directive(s) 01/19/2018 11:36 AM [...] or prosecute any alcohol or drug abuse patient.[facility] the event this information is protected by the Federal Confidentiality of Alcohol and Drug Abuse Patient Records regulations: The Federal rules restrict any use of the information to criminally investigate or prosecute any alcohol or drug abuse patient.[facility] the event this information is protected by the Federal Confidentiality of Alcohol and Drug Abuse Patient Records regulations: The Federal rules restrict any use of the information to criminally investigate or prosecute any alcohol or drug abuse patient.[facility] Center[facility] the event this information is protected by the Federal Confidentiality of Alcohol and Drug Abuse Patient Records regulations: The Federal rules restrict any use of the information to criminally investigate or prosecute any alcohol or drug abuse patient.[facility] Center[facility] the event this information is protected by the Federal Confidentiality of Alcohol and Drug Abuse Patient Records regulations: The Federal rules restrict any use of the information to criminally investigate or prosecute any alcohol or drug abuse patient.[facility] Center[facility] the event this information is protected by the Federal Confidentiality of Alcohol and Drug Abuse Patient Records regulations: The Federal rules restrict any use of the information to criminally investigate or prosecute any alcohol or drug abuse patient.[facility] Center[facility] the event this information is protected by the Federal Confidentiality of Alcohol and Drug Abuse Patient Records regulations: The Federal rules restrict any use of the information to criminally investigate or prosecute any alcohol or drug abuse patient.[facility] Center[facility] the event this information is protected by the Federal Confidentiality of Alcohol and Drug Abuse Patient Records regulations: The Federal rules restrict any use of the information to criminally investigate or prosecute any alcohol or drug abuse patient.[facility] CenterIn the event this information is protected by the Federal Confidentiality of Alcohol and Drug Abuse Patient Records regulations: The Federal rules restrict any use of the information to criminally investigate or prosecute any alcohol or drug abuse patient.[facility] CenterIn the event this information is protected by the Federal Confidentiality of Alcohol and Drug Abuse Patient Records regulations: The Federal rules restrict any use of the information to criminally investigate or prosecute any alcohol or drug abuse patient.[facility] Center[facility] the event this information is protected by the Federal Confidentiality of Alcohol and Drug Abuse Patient Records regulations: The Federal rules restrict any use of the information to criminally investigate or prosecute any alcohol or drug abuse patient.[facility] CenterIn the event this information is protected by the Federal Confidentiality of Alcohol and Drug Abuse Patient Records regulations: The Federal rules restrict any use of the information to criminally investigate or prosecute any alcohol or drug abuse patient.[facility] CenterIn the event this information is protected by the Federal Confidentiality of Alcohol and Drug Abuse Patient Records regulations: The Federal rules restrict any use of the information to criminally investigate or prosecute any alcohol or drug abuse patient.[facility] CenterIn the event this information is protected by the Federal Confidentiality of Alcohol and Drug Abuse Patient Records regulations: The Federal rules restrict any use of the information to criminally investigate or prosecute any alcohol or drug abuse patient.[facility] CenterIn the event this information is protected by the Federal Confidentiality of Alcohol and Drug Abuse Patient Records regulations: The Federal rules restrict any use of the information to criminally investigate or prosecute any alcohol or drug abuse patient.[facility] CenterIn the event this information is protected by the Federal Confidentiality of Alcohol and Drug Abuse Patient Records regulations: The Federal rules restrict any use of the information to criminally investigate or prosecute any alcohol or drug abuse patient.[facility] CenterIn the event this information is protected by the Federal Confidentiality of Alcohol and Drug Abuse Patient Records regulations: The Federal rules restrict any use of the information to criminally investigate or prosecute any alcohol or drug abuse patient.[facility] CenterIn the event this information is protected by the Federal Confidentiality of Alcohol and Drug Abuse Patient Records regulations: The Federal rules restrict any use of the information to criminally investigate or prosecute any alcohol or drug abuse patient.[facility] CenterIn the event this information is protected by the Federal Confidentiality of Alcohol and Drug Abuse Patient Records regulations: The Federal rules restrict any use of the information to criminally investigate or prosecute any alcohol or drug abuse patient.[facility] CenterIn the event this information is protected by the Federal Confidentiality of Alcohol and Drug Abuse Patient Records regulations: The Federal rules restrict any use of the information to criminally investigate or prosecute any alcohol or drug abuse patient.[facility] CenterIn the event this information is protected by the Federal Confidentiality of Alcohol and Drug Abuse Patient Records regulations: The Federal rules restrict any use of the information to criminally investigate or prosecute any alcohol or drug abuse patient.[facility] Reason for Visit (unrecogniz ed section and content) Specialty Diagnoses / Procedures Referred By Crow t Referred To Contact [facility] Diagnoses Thyroid goiter Procedures US THYROID/PARATHYROID US SOFT TISSUE HEAD & NECK REAL TIME IMGE Jhonny Jett, AUTOMOTIVE SHOP FOREMAN.PILOT BOAT OPERATOR [address] [place] [address] [place] [address] Referral ID Status Reason Start Date Expiration Date V isits Requested Visits Authorized [id number] Closed Auto-Generate d Referral 11/15/2022 12/15/2023 1 1 Reason Comments Well 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 [address] [place] [address] Referral ID Status Reason Start Date Expiration Date V isits Requested Visits Authorized [id number] Closed Auto-Generate d Referral 12/25/2021 12/24/2022 1 1 Reason Comments Patient Question Reason Comments Trauma Left wrist pain x 1 day Reason Comments Vaginal Problem Vaginal itching x 1 day Reason Comments Results Orders Reason Onset Date Comments Yearly Exam Radiology Mammogram 10/24/2022 at [facility] Reason Comments Physical Right hip pain x 2 m onths , chest and SOB x 1 month Reason Comments Pain Left wrist pain x 3 days Reason Comments Orders Specialty Diagnoses / Procedures Referred By Crow t Referred To Contact [facility] Diagnoses Mastalgia Mass of left breast, unspecified quadrant Procedures US BREAST LTD LEFT US BREAST UNI REAL TIME WITH IMAGE LIMITED Rabia Romero, AUTOMOTIVE SHOP FOREMAN.PILOT BOAT OPERATOR [address] [place] [address] [facility] [address] [place] [address] Referral ID Status Reason Start Date Expiration Date V isits Requested Visits Authorized [id number] Closed Auto-Generate d Referral 10/24/2022 11/23/2023 1 1 Reason Comments Need for paperwork for significant other 's insurance company Reason Comments Vomiting Care Teams (unrecognized sec tion and content) Telecasting Engineer Relationship Specialty Start Date End Date Sergio Wilhelm DO [address] [place] [address] PCP - General Family Practice 03/12/13 Telecasting Engineer Relationship Specialty Start Date End Date Sergio Wilhelm DO [address] [place], [place] [id number] PCP - General Family Practice 03/12/13 Telecasting Engineer Relationship Specialty Start Date End Date Sergio Wilhelm DO [address] [place], [place] [phone] PCP - General Family Practice 03/12/13 Telecasting Engineer Relationship Specialty Start Date End Date Sergio Wilhelm, DO [address] [place] [address] PCP - General Family Medicine 03/12/13 Telecasting Engineer Relationship Specialty Start Date End Date Sergio Wilhelm, DO [address] [place] [address] PCP - General Family Medicine 03/12/13 Telecasting Engineer Relationship Specialty Start Date End Date Sergio Wilhelm, DO [address] [place] [address] PCP - General Family Medicine 03/12/13 Telecasting Engineer Relationship Specialty Start Date End Date Sergio Wilhelm DO [address] [place] [address] PCP - General Family Medicine 03/12/13 Telecasting Engineer Relationship Specialty Start Date End Date Sergio Wilhelm DO [address] [place] [address] PCP - General Family Medicine 03/12/13 Telecasting Engineer Relationship Specialty Start Date End Date Sergio Wilhelm DO [address] [place] [address] PCP - General Family Medicine 03/12/13 Telecasting Engineer Relationship Specialty Start Date End Date Sergio Wilhelm DO [address] [place] [address] PCP - General Family Medicine 03/12/13 Telecasting Engineer Relationship Specialty Start Date End Date Sergio Wilhelm DO [address] [place] [address] PCP - General Family Medicine 03/12/13 Telecasting Engineer Relationship Specialty Start Date End Date Sergio Wilhelm DO [address] [place] [address] PCP - General Family Medicine 03/12/13 Telecasting Engineer Relationship Specialty Start Date End Date Sergio Wilhelm DO [address] [place] [address] PCP - General Family Medicine 03/12/13 Telecasting Engineer Relationship Specialty Start Date End Date Sergio Wilhelm DO [address] [place] [address] PCP - General Family Medicine 03/12/13 Telecasting Engineer Relationship Specialty Start Date End Date Sergio Wilhelm DO [address] [place] [address] PCP - General Family Medicine 03/12/13 Telecasting Engineer Relationship Specialty Start Date End Date Sergio Wilhelm DO [address] [place] [address] PCP - General Family Medicine 03/12/13 Telecasting Engineer Relationship Specialty Start Date End Date Sergio Wilhelm DO [address] [place] [address] PCP - General Family Medicine 03/12/13 INFORMATION [...] BE BASED ON THE PRIMARY CLINICAL RECORDS. [facility] [employer] [facility]. provides no warranty or guarantee of the accuracy or completeness of information in this document.
[2023-05-13 22:04] VITALS: BP 114/85; PULSE 63; RESP 16; TEMP 36.3; O2SAT 100
[2023-05-14] MEDS: Ondansetron 4 MG/2 ML Vial IV (00:08)
[2023-05-14] MEDS: Morphine 2 MG/ML Syringe IV (00:08)
[2023-05-14 04:26] VITALS: BP 106/79; PULSE 55; RESP 18; TEMP 36.6; O2SAT 100
[2023-05-14] MEDS: 0.9% Normal Saline (1000mL) 1,000 ML 75 ML IV (04:36)
--- NOTE | 2023-05-14 07:57 | PN.HOSP_ITS ---
Reason for Visit Reason for Visit: Diagnoses Cannabis abuse, uncomplicated (05/13/23) Nausea with vomiting, unspecified (05/13/23) Diarrhea, unspecified (05/13/23) Objective Data Objective Data Vital Signs: Vital Signs Temp Pulse Resp BP Pulse Ox O2 Del Method 98 F 55 L 18 106/79 100 Room Air 05/14/23 04:26 05/14/23 04:26 05/14/23 04:26 05/14/23 04:26 05/14/23 04:26 05/14/23 04:26 Oxygen Delivery Method Room Air Weight: 140 lb 6.951 oz Body Mass Index (BMI) 24.8 Intake & Output: Intake and Output for Last 24 Hours 05/12/23 05/13/23 05/14/23 23:59 23:59 23:59 Intake Total 1206.25 / 1206.25 2078.75 / 2078.75 Balance 1206.25 / 1206.25 2078.75 / 2078.75 Lab / Micro Data 05/13/23 11:10 05/13/23 10:15 Labs: Laboratory Results - last 24 hr Sodium 142, Potassium 3.2 L, Chloride 104, Carbon Dioxide 30.0, Anion Gap 8, BU N 5 L, Creatinine 0.98, Estim Creat Clear Calc 72.31, Est GFR (MDRD) Af Amer 82, Est GFR (MDRD) Non-Af 68, BUN/Creatinine Ratio 5.1 L, Glucose 126 H, Lactic Acid 0.7, Calcium 8.7, Total Bilirubin 0.30, AST 34, ALT 56, Alkaline Phosphatase 72, Total Protein 7.3, Albumin 3.6, Globulin 3.7, Albumin/Globulin Ratio 1.0, Lipase 27, Serum , Qual NEGATIVE 05/13/23 11:10: WBC 4.2 L, RBC 4.66, Hgb 13.0, Hct 40.3, MCV 86.5, MCH 27.9, MCHC 32.3, RDW Std Deviation 38.7, RDW Coeff of Fabian 12.1, Plt Count 201, MPV 9.2, Immature Gran % (Auto) 0.000, Neut % (Auto) 41.9 L, Lymph % (Auto) 47.0 H, [place] % (Auto) 10.2 H, Eos % (Auto) 0.2, Baso % (Auto) 0.7, Absolute Neuts (auto) 1.8 L, Absolute Lymphs (auto) 1.99, Nucleated RBC % 0 05/13/23 11:45: Urine Color Yellow, Urine Clarity Clear, Urine pH 7.0, Ur Specific [place] 1.010, Urine Protein 30 H, Urine Glucose (UA) Normal, Urine Ketones Negative, Urine Occult Blood 10 H, Urine Nitrite Negative, Urine Bilirubin Negative, Urine Urobilinogen Normal, Ur Leukocyte Esterase Negative, Urine RBC 0-5 SEEN, Urine WBC 0 SEEN, Ur Squamous Epith Cells 0 SEEN, Urine Bacteria 0 SEEN, Urine Mucus 0 SEEN, Urine Opiates Screen NEGATIVE, Urine Methadone Screen NEGATIVE, Ur Barbiturates Screen NEGATIVE, Ur Phencyclidine Scrn NEGATIVE, Ur Amphetamines Screen NEGATIVE, MDMA (Ecstasy) Screen NEGATIVE, U Benzodiazepines Scrn NEGATIVE, Urine Cocaine Screen NEGATIVE, U Cannabinoids Screen POSITIVE H, Ur Drug Screen Comment Micro: Microbiology 05/13/23 20:30 Stool Enteric Bacteriology - Final 05/13/23 20:30 Stool Clostridioides difficile (PCR) - Final Radiography Diagnostic Testing: Radiology Impression KUB X-Ray 05/13/23 14:16 IMPRESSION: Normal x-ray examination of the abdomen and pelvis. Electronically Signed: Preet Lewis MD at 14:40 EST Reading Location ID and State: [facility] / MD , Service support , Assessment & Plan Assessment/Plan (1) Marijuana use: (2) Nausea vomiting and diarrhea: PLAN: Plan This is a 37-year-old female was admitted for intractable nausea and vomiting, cannot keep anything solid or liquids down. Complain of abdominal cramping since diffusely #Intractable nausea and vomiting -Possibly viral in nature versus cannabinoid induced -Patient reports she has not used marijuana in a couple of weeks and only uses intermittently, of note UDS is positive today -Replace electrolytes -CLD -IV fluids -Antiemetics and supportive care -Will also start scopolamine patch -Was evaluated by GI in December for similar presentation and had EGD which showed a small hiatal hernia and erythematous duodenopathy and she was started on scopolamine patch #Diarrhea and abd pain -In addition to above, again possibly viral in nature -Will obtain stool studies and KUB -IVF -I's and O's #Hypokalemia -Will replace #GERD -Pt not taking PPI any longer #DVT ppx: Lovenox sub q Talita Santizo MD
[2023-05-14 08:13] LABS: Absolute Lymphocyte Count 3.06 X10^3/uL (0.83-4.51); Absolute Neutrophil Count 4.4 X10^3/uL (2.0-7.7); Basophil# 0.02 X10^3/uL; Basophil% 0.3 % (0-1); Eosinophil# 0.06 X10^3/uL; Eosinophils% 0.8 % (0-5); Hematocrit 39.1 % (37-47); Hemoglobin 12.6 g/dL (12.0-15.0); Lymphocyte # 3.06 X10^3/ul (0.83-4.51); Lymphocyte % 38.3 % (19-41); Mean Corp Hgb Conc 32.2 g/dL (32-36); Mean Corpuscular Hgb 28.1 pg (27.0-32.0); Mean Corpuscular Volume 87.1 fL (81-99); Mean Platelet Vol. 9.3 fl (6.2-12.0); Monocyte# 0.43 X10^3/uL; Monocyte% 5.4 % (0-10); NRBC Flagged by Analyzer 0 % (0-5); Neutrophil # 4.42 X10^3/uL (2.7-7.7); Neutrophil % 55.1 % (47-70); Platelet Count 223 K/mm3 (150-450); RBC Distribution Width SD 38.8 fl (35.1-43.9); Red Blood Count 4.49 M/mm3 (4.2-5.4)
[2023-05-14 08:34] VITALS: BP 130/87; PULSE 68; RESP 18; TEMP 37; O2SAT 98
[2023-05-14] MEDS: proMETHazine 25 MG/ML Syringe IM (08:46)
[2023-05-14] MEDS: Enoxaparin 40 MG/0.4 ML Syringe SC (08:46)
[2023-05-14] MEDS: Acetaminophen 325 MG Tablet 650 MG PO (08:46)
[2023-05-14 09:12] LABS: AST(SGOT) 30 U/L (15-37); Alanine Aminotransfer ALT/SGPT 54 U/L (13-56); Alkaline Phosphatase 62 U/L (45-117); Anion Gap 4 (5-15); BUN 4 mg/dL (7-18); BUN/Creat Ratio 4.3 RATIO (10-20); Calcium,Total 7.9 mg/dL (8.5-10.1); Chloride 109 mmol/L (98-107); Creatinine, Serum 0.92 mg/dL (0.55-1.02); EST Glomerular Filtration Rate 73 mL/min (>60); Est Glom Filt Rate - Afr Amer 88 mL/min (>60); Estimated Creatinine Clearance 75.96 ml/min; Globulin 3.1 g/dL (2.2-4.2); Glucose 104 mg/dL (74-106); Magnesium 1.8 mg/dL (1.6-2.6); Phosphorus 2.4 mg/dL (2.5-4.9); Potassium 3.2 mmol/L (3.5-5.1); Protein, Total 6.1 g/dL (6.4-8.2); Sodium Level 140 mmol/L (136-145); Thyroid Stim Hormone (TSH) 0.42 uIU/mL (0.358-3.74)
--- NOTE | 2023-05-14 11:19 | DCINST_ITS ---
Discharge Instructions Diet Discharge Diet: Soft diet (Soft diet for next 5 days) Activity Discharge Activity: Return to Normal Activity Weight Bearing Status: Weight bearing as tolerated Dressing / Incision Call your doctor if you observe: Fever of 101 or Higher, Coldness, Increased Pain, Numbness or Tingling, Change in Color, Inability to urinate, Inability to have a bowel movement, Using more than 1 pad per hour, Shortness of breath, Dizziness, Fainting spells, Swelling in the ankles, Chest pain, Prolonged hiccupping, Increased palpitations (irregular heartbeat) and Calf discomfort Follow Up Care When: IN 2 WEEKS Test Results: Test results from this visit will be discussed in further detail at your follow- up appointment, if applicable. Discharge Plan Admission Admit Date/Time: 05/13/23 14:05 Primary Reason for Your Visit: Nausea vomiting. Possible marijuana induced Attending Provider: Koko Bal Primary Care Provider: Sergio Grover Consulting Providers: Talita Santizo Discharge Orders/Prescriptions Prescriptions: New scopolamine base 1 mg over 3 days Patch 3 Day 1 patch transdermal Q3D 2 Days Qty: 2 0RF Continued omeprazole 40 mg capsule,delayed release(DR/EC) 40 mg PO DAILY Qty: 30 0RF Changed ondansetron 4 mg tablet,disintegrating 4 mg PO Q6H PRN PRN (Reason: Nausea) Qty: 20 0RF Referrals / Follow Up: Sergio Grover DO [Primary Care Provider] - Within 2 Weeks Disposition Disposition (needs filled in before D/C Order can be placed): Home, Self Care
--- NOTE | 2023-05-14 11:23 | PCM.DC.SUM ---
Providers Date of Admission: 05/13/23 Date of Discharge: 05/14/23 Primary Care Physician: Dr. Sergio Grover DO Reason For Visit: INTRACTABLE NAUSEA AND VOMITING, INFLUENZA B Diagnosis Discharge Diagnosis (1) Marijuana use: Status: Chronic Code(s): F12.10 - Cannabis abuse, uncomplicated (2) Nausea vomiting and diarrhea: Status: Acute Code(s): R11.2 - Nausea with vomiting, unspecified; R19.7 - Diarrhea, unspecified Plan This is a 37-year-old female was admitted for intractable nausea and vomiting, cannot keep anything solid or liquids down. Complain of abdominal cramping since diffusely #Intractable nausea and vomiting most likely due to marijuana, cannabinoids hyperemesis syndrome: [facility] Her nausea and vomiting got better with Zofran and scopolamine patch. Patient was treated with IV fluid. She also had abdominal pain but not much tenderness. She had influenza B positive on 05/07/2023. She stated she has been using intermittently on and off marijuana for long time since teenage and you just intermittently. Patient was able to GI doctor in December and had EGD which shows small hiatus hernia, erythematous duodenopathy and started on a scopolamine patch. 2. Abdominal pain and diarrhea probably due to cannabinoid hyperemesis syndrome or viral influenza B: As mentioned above does not have significant abdominal tenderness and abdomen is soft. IV fluid was resuscitated. Patient tolerating food and is discharged home. 3. #Hypokalemia serum sodium 3.2 repleted. Serum magnesium normal. Patient discharged on potassium and magnesium supplement. #GERD -Pt not taking PPI any longer #DVT ppx: Lovenox sub q Microbiology Past 72 Hours 05/13/23 20:30 Stool Enteric Bacteriology - Final 05/13/23 20:30 Stool Clostridioides difficile (PCR) - Final Laboratory Results 05/13/23 11:10: WBC 4.2 L, RBC 4.66, Hgb 13.0, Hct 40.3, MCV 86.5, MCH 27.9, MCHC 32.3, RDW Std Deviation 38.7, RDW Coeff of Fabian 12.1, Plt Count 201, MPV 9.2, Immature Gran % (Auto) 0.000, Neut % (Auto) 41.9 L, Lymph % (Auto) 47.0 H, [place] % (Auto) 10.2 H, Eos % (Auto) 0.2, Baso % (Auto) 0.7, Absolute Neuts (auto) 1.8 L, Absolute Lymphs (auto) 1.99, Nucleated RBC % 0 05/13/23 11:45: Urine Color Yellow, Urine Clarity Clear, Urine pH 7.0, Ur Specific [place] 1.010, Urine Protein 30 H, Urine Glucose (UA) Normal, Urine Ketones Negative, Urine Occult Blood 10 H, Urine Nitrite Negative, Urine Bilirubin Negative, Urine Urobilinogen Normal, Ur Leukocyte Esterase Negative, Urine RBC 0-5 SEEN, Urine WBC 0 SEEN, Ur Squamous Epith Cells 0 SEEN, Urine Bacteria 0 SEEN, Urine Mucus 0 SEEN, Urine Opiates Screen NEGATIVE, Urine Methadone Screen NEGATIVE, Ur Barbiturates Screen NEGATIVE, Ur Phencyclidine Scrn NEGATIVE, Ur Amphetamines Screen NEGATIVE, MDMA (Ecstasy) Screen NEGATIVE, U Benzodiazepines Scrn NEGATIVE, Urine Cocaine Screen NEGATIVE, U Cannabinoids Screen POSITIVE H, Ur Drug Screen Comment 05/14/23 07:50: WBC 8.0, RBC 4.49, Hgb 12.6, Hct 39.1, MCV 87.1, MCH 28.1, MCHC 32.2, RDW Std Deviation 38.8, RDW Coeff of Fabian 12.0, Plt Count 223, MPV 9.3, Immature Gran % (Auto) 0.100, Neut % (Auto) 55.1, Lymph % (Auto) 38.3, [place] % (Auto) 5.4, Eos % (Auto) 0.8, Baso % (Auto) 0.3, Absolute Neuts (auto) 4.4, Absolute Lymphs (auto) 3.06, Nucleated RBC % 0 Sodium 140, Potassium 3.2 L, Chloride 109 H, Carbon Dioxide 27.0, Anion Gap 4 L, BUN 4 L, Creatinine 0.92, Estim Creat Clear Calc 75.96, Est GFR (MDRD) Af Amer 88, Est GFR (MDRD) Non-Af 73, BUN/Creatinine Ratio 4.3 L, Glucose 104, Calcium 7.9 L, Phosphorus 2.4 L, Magnesium 1.8, Total Bilirubin 0.30, AST 30, ALT 54, Alkaline Phosphatase 62, Total Protein 6.1 L, Albumin 3.0 L, Globulin 3.1, Albumin/Globulin Ratio 1.0, TSH 0.42 Clinical Impression(s) from Imaging Studies KUB X-Ray 05/13/23 14:16 IMPRESSION: Normal x-ray examination of the abdomen and pelvis. Electronically Signed: Preet Lewis MD at 14:40 EST , Medications at Discharge Home Medications omeprazole 40 mg capsule,delayed release 40 mg PO DAILY #30 caps 05/12/23 magnesium chloride 64 mg (magnesium chloride) tablet,delayed release (Mag 64) 128 mg (2 x 64 mg) PO DAILY 5 days #10 tabs 05/14/23 ondansetron 4 mg disintegrating tablet 4 mg PO Q6H PRN PRN Nausea #20 tabs 05/14/23 scopolamine base 1 mg over 3 days transdermal patch 1 patch transdermal Q3D 2 days #2 ea 05/14/23 sodium di- and monophosphate-potassium phos monobasic 250 mg tablet ([id number]) 1 tab PO TID 5 days #15 tabs 05/14/23 Physical Exam Narrative Seen and examined. Patient complained that abdomen is hurting/painful all over. Nausea and vomiting has subsided. General: Alert, Oriented x3, Cooperative HEENT: Atraumatic, PERRLA, EOMI, Normocephalic Oral: Oral mucosa mildly dry. No Gingival or Mucosal Lesions/ Ulcerations Neck: Supple, No JVD, Negative Carotid Bruits Chest wall/Lungs: Air entry diminished in bilateral lung bases. No crepitation/rhonchi Cardiovascular: Regular rate, Regular Rhythm, Normal S1, Normal S2, No M/G/R Abdomen: Bowel Sounds Present, Soft, Non Tender, Non-Distended : No dysuria. No renal angle tenderness. No suprapubic tenderness. Extremities: No edema, Capillary Refill Less than 3 Seconds Skin: No rashes, No breakdown Musculoskeletal: No Tenderness to Palpation of Joints or Extremities Neurological: Cranial nerves II-XII grossly intact, DTR 2+/4. No acute focal neurological deficit. Psych/Mental Status: Normal Affect, Appropriate. Weight / BMI Weight Weight: 140 lb 6.951 oz Body Mass Index (BMI) 24.8 ABG / Lab / Microbiology Data 05/14/23 07:50 05/14/23 07:50 Laboratory: Laboratory Results - last 24 hr 05/13/23 11:10: WBC 4.2 L, RBC 4.66, Hgb 13.0, Hct 40.3, MCV 86.5, MCH 27.9, MCHC 32.3, RDW Std Deviation 38.7, RDW Coeff of Fabian 12.1, Plt Count 201, MPV 9.2, Immature Gran % (Auto) 0.000, Neut % (Auto) 41.9 L, Lymph % (Auto) 47.0 H, [place] % (Auto) 10.2 H, Eos % (Auto) 0.2, Baso % (Auto) 0.7, Absolute Neuts (auto) 1.8 L, Absolute Lymphs (auto) 1.99, Nucleated RBC % 0 05/13/23 11:45: Urine Color Yellow, Urine Clarity Clear, Urine pH 7.0, Ur Specific [place] 1.010, Urine Protein 30 H, Urine Glucose (UA) Normal, Urine Ketones Negative, Urine Occult Blood 10 H, Urine Nitrite Negative, Urine Bilirubin Negative, Urine Urobilinogen Normal, Ur Leukocyte Esterase Negative, Urine RBC 0-5 SEEN, Urine WBC 0 SEEN, Ur Squamous Epith Cells 0 SEEN, Urine Bacteria 0 SEEN, Urine Mucus 0 SEEN, Urine Opiates Screen NEGATIVE, Urine Methadone Screen NEGATIVE, Ur Barbiturates Screen NEGATIVE, Ur Phencyclidine Scrn NEGATIVE, Ur Amphetamines Screen NEGATIVE, MDMA (Ecstasy) Screen NEGATIVE, U Benzodiazepines Scrn NEGATIVE, Urine Cocaine Screen NEGATIVE, U Cannabinoids Screen POSITIVE H, Ur Drug Screen Comment 05/14/23 07:50: WBC 8.0, RBC 4.49, Hgb 12.6, Hct 39.1, MCV 87.1, MCH 28.1, MCHC 32.2, RDW Std Deviation 38.8, RDW Coeff of Fabian 12.0, Plt Count 223, MPV 9.3, Immature Gran % (Auto) 0.100, Neut % (Auto) 55.1, Lymph % (Auto) 38.3, [place] % (Auto) 5.4, Eos % (Auto) 0.8, Baso % (Auto) 0.3, Absolute Neuts (auto) 4.4, Absolute Lymphs (auto) 3.06, Nucleated RBC % 0, Sodium 140, Potassium 3.2 L, Chloride 109 H, Carbon Dioxide 27.0, Anion Gap 4 L, BUN 4 L, Creatinine 0.92, Estim Creat Clear Calc 75.96, Est GFR (MDRD) Af Amer 88, Est GFR (MDRD) Non-Af 73, BUN/Creatinine Ratio 4.3 L, Glucose 104, Calcium 7.9 L, Phosphorus 2.4 L, Magnesium 1.8, Total Bilirubin 0.30, AST 30, ALT 54, Alkaline Phosphatase 62, Total Protein 6.1 L, Albumin 3.0 L, Globulin 3.1, Albumin/Globulin Ratio 1.0, TSH 0.42 Microbiology: Microbiology 05/13/23 20:30 Stool Enteric Bacteriology - Final 05/13/23 20:30 Stool Clostridioides difficile (PCR) - Final Radiography Diagnostic Testing: Radiology Impression KUB X-Ray 05/13/23 14:16 IMPRESSION: Normal x-ray examination of the abdomen and pelvis. Electronically Signed: Preet Lewis MD at 14:40 EST Reading Location ID and State: [address] [place] [address] , Service support , D/C Instructions Discharge Diet: Soft diet (Soft diet for next 5 days) Weight Bearing Status: Weight bearing as tolerated Call your doctor if you observe: Fever of 101 or Higher, Coldness, Increased Pain, Numbness or Tingling, Change in Color, Inability to urinate, Inability to have a bowel movement, Using more than 1 pad per hour, Shortness of breath, Dizziness, Fainting spells, Swelling in the ankles, Chest pain, Prolonged hiccupping, Increased palpitations (irregular heartbeat) and Calf discomfort When: IN 2 WEEKS Meaningful Use Info Meaningful Use Diagnoses (Choose all that apply): None applicable Discharge Plan Admission Admit Date/Time: 05/13/23 14:05 Primary Reason for Your Visit: Nausea vomiting. Possible marijuana induced Attending Provider: Koko Bal Primary Care Provider: Sergio Grover Consulting Providers: Talita Santizo Discharge Orders/Prescriptions Prescriptions: New scopolamine base 1 mg over 3 days Patch 3 Day 1 patch transdermal Q3D 2 Days Qty: 2 0RF T-Fbkn-Oioeagx 250 mg tablet 1 tab PO TID 5 Days Qty: 15 0RF Mag 64 64 mg tablet,delayed release (DR/EC) 128 mg PO DAILY 5 Days Qty: 10 0RF Continued omeprazole 40 mg capsule,delayed release(DR/EC) 40 mg PO DAILY Qty: 30 0RF Changed ondansetron 4 mg tablet,disintegrating 4 mg PO Q6H PRN PRN (Reason: Nausea) Qty: 20 0RF Referrals / Follow Up: Sergio Grover DO [Primary Care Provider] - Within 2 Weeks Disposition Disposition (needs filled in before D/C Order can be placed): Home, Self Care Charges/Coding Visit Charges Inpatient E&M: 26910 Disch Hosp >30min
[2023-05-14 13:47] VITALS: BP 110/58; PULSE 78; RESP 18; TEMP 36.7; O2SAT 98
--- NOTE | 2023-05-14 14:30 | PHA.DC.MC.R ---
Pharmacy [facility] has performed discharge medication reconciliation and counseling for this patient. Spoke to Dr. Bal, K-Phos not sent to a pharmacy, he said he would send. Medications sent to 2 different pharmacies, patient said she will go to both pharmacies rather than having them transferred. 1. K-Phos Neutral 250mg 1T PO TID x 5 days 2. Ondansetron 4mg PO Q6H PRN nausea 3. Scopolamine 1mg TD Q3D x 2 days 4. Magnesium chloride 128mg PO daily x 5 days The patient's discharge medication list was reviewed for discrepancies and discrepancies were resolved. The patient was counseled on the following discharge medications and changes in medications for homegoing were reviewed. The Reason for Use, instructions for use, and potential side effects were reviewed for all new medications. The patient's questions regarding all of their medications were answered. The patient was able to verbally demonstrate an understanding of their discharge medications. Patient counseled by pharmacy customer care specialist, Joseph. Medications at Discharge Home Medications omeprazole 40 mg capsule,delayed release 40 mg PO DAILY #30 caps 05/12/23 magnesium chloride 64 mg (magnesium chloride) tablet,delayed release (Mag 64) 128 mg (2 x 64 mg) PO DAILY 5 days #10 tabs 05/14/23 ondansetron 4 mg disintegrating tablet 4 mg PO Q6H PRN PRN Nausea #20 tabs 05/14/23 scopolamine base 1 mg over 3 days transdermal patch 1 patch transdermal Q3D 2 days #2 ea 05/14/23 sodium di- and monophosphate-potassium phos monobasic 250 mg tablet ([id number]) 1 tab PO TID 5 days #15 tabs 05/14/23
== END 2023-05-14 14:11 | disposition home or self-care (01) ==
LOC: ED 10:41 → MS3 14:11
PROVIDERS: Admitting Provider Internal Medicine; Emergency Provider Emergency Medicine; PCP Student in an Organized Health Care Education/Training Program; Visit Provider Internal Medicine
DX: F12.288 Cannabis dependence with other cannabis-induced disorder (principal); J10.1 Influenza due to other identified influenza virus with other respiratory manifestations; R11.2 Nausea with vomiting, unspecified; E87.6 Hypokalemia; F17.210 Nicotine dependence, cigarettes, uncomplicated; Z86.16 Personal history of COVID-19; R19.7 Diarrhea, unspecified; K21.9 Gastro-esophageal reflux disease without esophagitis
CPT/HCPCS: 36415; 74018; 80053; 80307; 81001; 83605; 83690; 83735; 84100; 84443; 84703; 85025; 87493; 87506; 96361; 96365; 96366; 96372; 96374; 96375; 97802; 99221; 99283; J7030; J7050; G0378; J2405

== ENCOUNTER 2023-10-12 18:07 | Emergency (ER) | payer MEDICAID, SELFPAY ==
[2023-10-12 18:08] VITALS: BP 121/88; PULSE 84; RESP 22; TEMP 36.8; O2SAT 100
--- NOTE | 2023-10-12 18:28 | EDS_ITS ---
HPI History of Present Illness Chief Complaint: Nausea/Vomiting Detail of Chief Complaint: Nausea and vomiting and abdominal pain Informant: patient Narrative Narrative: Patient presents with abdominal pain and nausea and vomiting started last evening. Patient states that she has had similar pain in the past and has been diagnosed with cyclic vomiting syndrome. Patient tells me she has not had any issues since December of last year. 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 Levy. Patient tried taking Phenergan at home as well as Bentyl and not get much relief. She denies fevers although she has had some chills. Patient has had prior cholecystectomy. She has had 2 loose stools today. Denies urinary symptoms. PFSH PFS Medical History (Updated 10/12/23 @ 22:[address] Wellington Candelaria, DO) Anxiety Depression Pancreatitis Leukocytosis Former tobacco use Marijuana smoker, episodic Cyclic vomiting syndrome COVID-19 Esophageal reflux Home Medications ?Medication ?Instructions ?Recorded ?Last Taken ?Type metoclopramide HCl 10 mg tablet 10 mg PO Q6H PRN nausea and 10/12/23 Unknown Rx (Reglan) vomiting #10 tabs Allergy/AdvReac Type Severity Reaction Status Date / Time Fish Containing Products Allergy Swelling Verified 10/12/23 18:08 haloperidol (From Haldol) AdvReac Other Verified 10/12/23 18:08 Family History Mother Hypertension Hyperlipidemia Father Hypertension Hyperlipidemia Surgical History (Updated 05/15/23 @ 00:01 by Background Daemon) History of cholecystectomy Status post cholecystectomy Social History household members: significant other Smoking Status: Former smoker how long ago did patient quit smoking: Quit 15 years prior to current presentation. alcohol intake: never substance use type: marijuana ROS ROS ED Review of Systems ROS Unobtainable: other Constitutional Constitutional ED: Reports lethargy; Denies chills, fever(s), sweats or weight loss Eyes Eyes: Denies blurry vision, change in vision or diplopia ENT ENT ED: Denies rhinorrhea or sore throat Cardiovascular Cardiovascular: Denies chest pain, orthopnea or racing heartbeat Respiratory/Chest Respiratory/Chest: Denies cough, dyspnea, dyspnea on exertion, orthopnea or sputum Gastrointestinal Gastrointestinal: Reports abdominal pain, nausea and vomiting; Denies diarrhea Genitourinary Genitourinary ED: Denies dysuria, hematuria or urinary frequency Musculoskeletal Musculoskeletal: Denies arthralgias, back pain, myalgias or neck pain Integumentary Denies abscess, Abrasions or rash Neurologic Neurologic: Denies headache(s) or weakness Psychiatric Psychiatric: Denies anxiety, depression or suicidal thoughts Endocrine Endocrinology: Denies polydipsia, polyphagia or polyuria Hematologic/Lymphatic Hematologic/Lymphatic: Denies easy bleeding, easy bruising or lymphadenopathy Allergic/Immunologic Allergic/Immunologic ED: Denies mouth swelling, tongue swelling or urticaria EXAM Physical Exam Const Vital Signs: 10/12/23 18:08 10/12/23 20:07 10/12/23 20:47 Temperature 98.3 F Temperature Source Oral Pulse Rate 84 78 82 Respiratory Rate 22 H 16 16 Blood Pressure 121/88 H 121/66 H 105/80 Blood Pressure Mean 99 84 88 Pulse Ox 100 99 98 Oxygen Delivery Method Room Air Room Air Room Air 10/12/23 22:00 10/12/23 23:17 Temperature Temperature Source Pulse Rate 88 68 Respiratory Rate 16 16 Blood Pressure 142/92 H 129/85 H Blood Pressure Mean 108 99 Pulse Ox 98 97 Oxygen Delivery Method Room Air Room Air Positive well nourished and well developed General Appearance ED: well developed and NAD HEENT Reports TM's clear and moist mucous membranes normocephalic and atraumatic; Negative for trauma or tenderness Tympanic Membrane ED: Yes TM's clear Eyes PERRL and EOMs intact bilaterally General Eye ED: Negative for pale conjunctiva or scleral icterus Neck no lymphadenopathy, supple and no JVD General: Negative for tenderness Chest Wall inspection of chest normal and palpation of chest normal Chest: Negative for tenderness Resp normal respiratory effort and clear to auscultation bilaterally Effort and Inspection: Negative for respiratory distress or pain with movement Auscultation: Negative for rhonchi, wheezes or diminished lung sounds Cardio regular rate, regular rhythm, S1 normal heart sound, S2 normal heart sound and no murmurs Peripheral Pulses: pulses 2+ throughout GI normal to inspection, nondistended, normoactive bowel sounds, soft to palpation, non-distended and no masses GI Narrative: Mild diffuse tenderness. There is no rebound, rigidity, or pineal signs. No mass palpated. Back/Spine no CVA tenderness and no thoracic nor lumbar tenderness Extremity normal to inspection General Extremety ED: Negative for edema General Extremity: Negative for edema Neuro oriented x3, CN's II-XII intact bilaterally, no sensory deficits noted and gait normal Sensorium / Orientation: awake, alert, oriented to person, oriented to place and oriented to time Motor Exam: strength 5/5 throughout and strength abnormal Psych mental status grossly normal Skin no rashes or lesions noted and no wounds MDM MDM MDM Narrative Medical decision making narrative: Patient presents with abdominal pain and vomiting. History of cyclic vomiting but had been doing well since December of last year. Patient sees gastroenterology. IV line established. CBC with differential obtained showed a white count of 14.7 with hemoglobin 13.6 and platelet count of 237. Chemistries unremarkable. LFTs unremarkable. hCG was negative. Urinalysis was normal. Because of the elevated white count and ongoing pain. I did initially medicate her with Ativan and Reglan. She continues to complain of nausea and was given Zofran 4 mg IV. We obtained a CT scan of the abdomen pelvis without contrast that was unremarkable. At this point she still feeling nauseated. I will order Thorazine and Benadryl for her. Plan will be to try to get her home if she can tolerate p.o.'s. Lab Data Attestation: I reviewed the patient's lab results. Labs: Laboratory Results - last 24 hr 10/12/23 10/12/23 19:35 20:12 WBC 14.7 H RBC 4.84 Hgb 13.6 Hct 41.4 MCV 85.5 MCH 28.1 MCHC 32.9 RDW Std Deviation 37.8 RDW Coeff of Fabian 12.2 Plt Count 237 MPV 9.2 Immature Gran % (Auto) 0.300 Neut % (Auto) 87.1 H Lymph % (Auto) 8.9 L [place] % (Auto) 3.6 Eos % (Auto) 0.0 Baso % (Auto) 0.1 Absolute Neuts (auto) 12.8 H Absolute Lymphs (auto) 1.31 Nucleated RBC % 0 Sodium 140 Potassium 3.4 L Chloride 109 H Carbon Dioxide 22.0 Anion Gap 9 BUN 11 Creatinine 0.87 Estim Creat Clear Calc 80.71 Est GFR (MDRD) Af Amer 94 Est GFR (MDRD) Non-Af 77 BUN/Creatinine Ratio 12.6 Glucose 126 H Calcium 8.8 Total Bilirubin 0.70 AST 14 L ALT 24 Alkaline Phosphatase 72 Total Protein 7.8 Albumin 4.2 Globulin 3.6 Albumin/Globulin Ratio 1.2 Serum , Qual NEGATIVE Urine Color Yellow Urine Clarity Clear Urine pH 6.0 Ur Specific [place] 1.025 Urine Protein 500 H Urine Glucose (UA) Normal Urine Ketones 150 A* Urine Occult Blood 150 H Urine Nitrite Negative Urine Bilirubin Negative Urine Urobilinogen Normal Ur Leukocyte Esterase Negative Urine RBC 0-5 SEEN Urine WBC 0-5 SEEN Ur Squamous Epith Cells 0-5 SEEN Urine Bacteria 2+ Urine Mucus 2+ Radiography Diagnostic Testing: Clinical Impression(s) from Imaging Studies Abdomen/Pelvis CT 10/12/23 20:23 IMPRESSION: No definite acute or significant abnormality seen. Electronically Signed: Kashif Todd MD at 22:01 EDT , Discharge Plan Triage Chief Complaint: Nausea/Vomiting ED Provider: Wellington Candelaria Dx/Rx/DC Orders Clinical Impression: Cyclic vomiting syndrome Instructions: ED Cyclic Vomiting Syndrome Prescriptions: New metoclopramide HCl [Reglan] 10 mg tablet 10 mg PO Q6H PRN (Reason: nausea and vomiting) Qty: 10 0RF Primary Care Provider: Sergio Grover Referrals: Sergio Grover DO [Primary Care Provider] - Florentin Levy DO [Med Staff - Active Staff] - 3-5 Days Print Language: Tamazight Disposition Disposition: Home, Self Care
[2023-10-12] MEDS: 0.9% Normal Saline (1000mL) 1,000 ML 999 ML IV (19:33)
[2023-10-12] MEDS: Metoclopramide 10 MG/2 ML Vial IV (19:33)
[2023-10-12] MEDS: LORazepam 2 MG/ML Syringe 1 MG IV (19:33)
[2023-10-12 19:51] LABS: Absolute Lymphocyte Count 1.31 X10^3/uL (0.83-4.51); Absolute Neutrophil Count 12.8 X10^3/uL (2.0-7.7); Basophil# 0.02 X10^3/uL; Basophil% 0.1 % (0-1); Hematocrit 41.4 % (37-47); Hemoglobin 13.6 g/dL (12.0-15.0); Lymphocyte # 1.31 X10^3/ul (0.83-4.51); Lymphocyte % 8.9 % (19-41); Mean Corp Hgb Conc 32.9 g/dL (32-36); Mean Corpuscular Hgb 28.1 pg (27.0-32.0); Mean Corpuscular Volume 85.5 fL (81-99); Mean Platelet Vol. 9.2 fl (6.2-12.0); Monocyte# 0.53 X10^3/uL; Monocyte% 3.6 % (0-10); NRBC Flagged by Analyzer 0 % (0-5); Neutrophil # 12.75 X10^3/uL (2.7-7.7); Neutrophil % 87.1 % (47-70); Platelet Count 237 K/mm3 (150-450); RBC Distribution Width CV 12.2 % (11.6-14.6); RBC Distribution Width SD 37.8 fl (35.1-43.9); Red Blood Count 4.84 M/mm3 (4.2-5.4); White Blood Count 14.7 K/mm3 (4.4-11.0)
[2023-10-12 20:04] VITALS: BMI 25.7
[2023-10-12 20:07] VITALS: BP 121/66; PULSE 78; RESP 16; O2SAT 99
[2023-10-12 20:11] LABS: Internal QC Validated? YES +Cl - CLEAR BKGD; Pregnancy, Serum, hCG Quali. NEGATIVE Negative
[2023-10-12 20:18] LABS: ALB/GLOB Ratio 1.2 RATIO (0.9-2.4); AST(SGOT) 14 U/L (15-37); Alanine Aminotransfer ALT/SGPT 24 U/L (13-56); Albumin, Serum 4.2 g/dL (3.2-5.0); Alkaline Phosphatase 72 U/L (45-117); Anion Gap 9 (5-15); BUN 11 mg/dL (7-18); BUN/Creat Ratio 12.6 RATIO (10-20); Calcium,Total 8.8 mg/dL (8.5-10.1); Chloride 109 mmol/L (98-107); Creatinine, Serum 0.87 mg/dL (0.55-1.02); EST Glomerular Filtration Rate 77 mL/min (>60); Est Glom Filt Rate - Afr Amer 94 mL/min (>60); Estimated Creatinine Clearance 80.71 ml/min; Globulin 3.6 g/dL (2.2-4.2); Glucose 126 mg/dL (74-106); Potassium 3.4 mmol/L (3.5-5.1); Protein, Total 7.8 g/dL (6.4-8.2); Sodium Level 140 mmol/L (136-145)
[2023-10-12 20:22] LABS: Color, Urine Yellow (Yellow); Glucose, Dipstick Normal (Normal); Leukocyte Esterase-Dipstick Negative /ul (Negative); Nitrite-Dipstick Negative (Negative); Occult Blood-Urine 150 /ul (Negative); Protein-Dipstick 500 mg/dl (Negative); Specific Gravity, Urine 1.025 (1.002-1.030); Urine Bilirubin Dipstick Negative (Negative); Urine Clarity Clear (Clear); Urine Urobilinogen Normal (Normal)
--- NOTE | 2023-10-12 20:23 | CT_ITS ---
STUDY: CT ABDOMEN AND PELVIS WITHOUT CONTRAST REASON FOR EXAM: Female, 38 years old. abdominal pain RADIATION DOSAGE (If Supplied By Facility): CTDIvol = ( 6.30 ) mGy, DLP = ( 283.21 ) mGycm TECHNIQUE: Transaxial images were obtained from the dome of the diaphragm to the symphysis pubis without oral contrast, and without intravenous contrast. Sagittal and coronal images were reconstructed. Individualized dose optimization techniques were used for this CT. COMPARISON: 02/22/2013 FINDINGS: The visualized lung bases are unremarkable. The visualized portions of the heart are within normal limits. Normal liver. There is non-visualization of the gallbladder, which may be secondary to either contraction or a prior cholecystectomy. Normal spleen. Normal pancreas. Normal bilateral adrenal glands. Normal right kidney. Normal left kidney. Evaluation of the GI tract is limited by absence of oral contrast. Cannot exclude stomach wall thickening. No dilated loops of bowel or evidence for obstruction. Cannot exclude segmental thickening of the núñez of the small or large bowel. Cannot exclude enteritis or colitis. Moderate diffuse fecal retention. Appendix within normal limits. Normal abdominal aorta. Normal inferior vena cava. Normal retroperitoneum. Normal urinary bladder. Normal visualized uterus. A 4 cm right ovarian cyst is seen. Pelvic ultrasound could be performed for confirmation. Normal abdominal wall. Normal osseous structures. CT/Abdomen/Pelvis without Cont IMPRESSION: No definite acute or significant abnormality seen. Electronically Signed: Kashif Todd MD at 22:01 EDT ,
[2023-10-12 20:24] LABS: Ketone-Dipstick 150 mg/dl (Negative)
[2023-10-12 20:41] LABS: Bacteria 2+ /hpf (None Seen); Mucous, Urine 2+ /hpf (<or=2+); Red Blood Cells-Urine 0-5 SEEN /hpf (0-5); Squamous Epithelial Cells - UA 0-5 SEEN /hpf (5-10); White Blood Cells 0-5 SEEN /hpf (0-5)
[2023-10-12] MEDS: Ondansetron 4 MG/2 ML Vial IV (20:43)
[2023-10-12 20:47] VITALS: BP 105/80; PULSE 82; RESP 16; O2SAT 98
[2023-10-12 22:00] VITALS: BP 142/92; PULSE 88; RESP 16; O2SAT 98
[2023-10-12] MEDS: DiphenhydrAMINE 25 MG, ChlorproMAZINE IM 25 MG in 0.9% Normal Saline (100mL Bag) 100 ML 203 MG IV (23:11)
[2023-10-12] MEDS: Famotidine 200 MG/20 ML MDV 20 MG in 0.9% Normal Saline (Pres. free 8 ML 300 MG IV (23:11)
[2023-10-12 23:17] VITALS: BP 129/85; PULSE 68; RESP 16; O2SAT 97
[2023-10-13 00:10] VITALS: BP 101/57; PULSE 90; RESP 16; TEMP 36.7; O2SAT 98
== END 2023-10-13 00:16 | disposition home or self-care (01) ==
PROVIDERS: Emergency Provider Emergency Medicine; PCP Student in an Organized Health Care Education/Training Program; Visit Provider Emergency Medicine
DX: R11.15 Cyclical vomiting syndrome unrelated to migraine (principal); Z87.891 Personal history of nicotine dependence; Z90.49 Acquired absence of other specified parts of digestive tract
CPT/HCPCS: 74176; 80053; 81001; 84703; 85025; 96361; 96365; 96375; 99283; J7030; Q9967; A4216; J2405; J3490

== ENCOUNTER 2023-10-14 08:06 | Emergency (ER) | payer MEDICAID, SELFPAY ==
[2023-10-14 08:07] VITALS: BP 131/90; PULSE 96; RESP 16; TEMP 36.4; O2SAT 100; BMI 24.2
--- NOTE | 2023-10-14 08:38 | ED.VIS.GI ---
HPI HPI - GI History of Present Illness Chief Complaint: Nausea/Vomiting Narrative Narrative: 38-year-old female past medical history of cyclic vomiting syndrome, has not had problems since December of last year, but was seen in the emergency department 2 days ago because she thought that she had food poisoning. She thinks this was her trigger. When she was seen in the emergency department, she had been having nausea, vomiting, and diarrhea. The diarrhea had ceased, but over the last 24 hours she has had multiple episodes of nausea and vomiting again. Nonbloody. She states that her whole body feels like it is cramping at times when she vomits. No fevers or chills. No exacerbating or alleviating factors. PFSH PFSH Medical History Anxiety Depression Pancreatitis Leukocytosis Former tobacco use Marijuana smoker, episodic Cyclic vomiting syndrome COVID-19 Esophageal reflux Home Medications ?Medication ?Instructions ?Recorded ?Last Taken ?Type metoclopramide HCl 10 mg tablet 10 mg PO Q6H PRN nausea and 10/12/23 Unknown Rx (Reglan) vomiting #10 tabs Allergy/AdvReac Type Severity Reaction Status Date / Time Fish Containing Products Allergy Swelling Verified 10/14/23 08:09 haloperidol (From Haldol) AdvReac Other Verified 10/14/23 08:09 Family History Mother Hypertension Hyperlipidemia Father Hypertension Hyperlipidemia Surgical History History of cholecystectomy Status post cholecystectomy Social History household members: significant other Smoking Status: Former smoker how long ago did patient quit smoking: Quit 15 years prior to current presentation. alcohol intake: never substance use type: marijuana ROS ROS ED ROS Narrative Constitutional: No fever, no chills. HEENT: No sore throat. No neck pain. No loss of vision. No rhinorrhea. Cardiovascular: No chest pain. No palpitations. No pedal edema. Respiratory: No cough, no shortness of breath. Abdominal: Occasional abdominal pain. Multiple episodes of nausea and vomiting including dry heaving. Diarrhea-resolved Genitourinary: No dysuria. No hematuria. Musculoskeletal: Multiple myalgias and cramping, no arthralgias. Neurologic: No headaches. No dizziness. No lightheadedness. Skin: No rash. No change in color. Psychiatric: No depression. No anxiety. EXAM Physical Exam Narrative Exam Narrative: Afebrile. Vital signs noted. Curled up on bed, easily awakened. HEENT: Normocephalic. Atraumatic. PERRL, EOMI. Neck soft and supple. No point tenderness or step off. Cardiovascular: Regular rate and rhythm. No murmurs, rubs, or gallops appreciated. Respiratory: No tachypnea. Lungs clear to auscultation bilaterally. Gastrointestinal: Abdomen soft, nontender, with normoactive bowel sounds. No rebound or guarding. Started retching during examination. Neurological: Awake. Alert. Nonfocal, nonlateralizing. Skin: No rash. Normal color. No pallor. Musculoskeletal: No pedal edema. Full range of motion extremities. Const Vital Signs: 10/14/23 08:07 10/14/23 10:07 10/14/23 10:37 Temperature 97.5 F L Temperature Source Temporal Pulse Rate 96 66 64 Respiratory Rate 16 18 16 Blood Pressure 131/90 H 96/56 L 117/87 H Blood Pressure Mean 103 69 97 Pulse Ox 100 99 93 Oxygen Delivery Method Room Air Room Air Room Air 10/14/23 10:50 Temperature 97.8 F Temperature Source Pulse Rate 72 Respiratory Rate 16 Blood Pressure 119/86 H Blood Pressure Mean 97 Pulse Ox 98 Oxygen Delivery Method MDM MDM MDM Narrative Medical decision making narrative: I reviewed the patient's prior records, and her ED visit and laboratory work from 2 days ago. She had negative test. CT of the abdomen and pelvis has also been obtained. I do not feel she requires repeat imaging. I we will obtain laboratory work and compare it to 2 days ago. I think she may have another episode of cyclic vomiting. Initially the last time they had given her Reglan and Ativan. She was given Ativan, and ondansetron as well as a normal saline bolus. I do not think that she needs a repeat test, however. I reviewed her laboratory work and her white count is 13.8, but down from previous 2 days ago, hemoglobin stable at 13.9, hematocrit 41.9, platelet count normal at 275. CMP is grossly unremarkable except for appropriately elevated glucose with normal anion gap. Sodium slightly low at 135. She was bolused normal saline 1 L intravenously. Lipase normal at 22. Upon repeat examination at approximately 10:20 AM, she is feeling mildly improved. She had a transient dip in her blood pressure. I do think this may be secondary to the Ativan. She was bolused more fluid and she will be discharged upon appropriate blood pressure. I feel she can be discharged to follow-up with gastroenterology and/or her primary care provider. Return instructions reviewed. Disposition is discharged home in stable condition. History & Record Review Discussion w/independent historian: Patient Additional record(s) reviewed:: Prior ED visit and Prior labs Lab Data Attestation: I reviewed the patient's lab results. Labs: Laboratory Results - last 24 hr 10/14/23 10/14/23 10/14/23 08:59 08:59 09:15 WBC Cancelled 13.8 H Corrected WBC Cancelled RBC Cancelled 4.96 Hgb Cancelled 13.9 Hct Cancelled 41.9 MCV Cancelled 84.5 MCH Cancelled 28.0 MCHC Cancelled 33.2 RDW Std Deviation Cancelled 37.4 RDW Coeff of Fabian Cancelled 12.1 Plt Count Cancelled 275 MPV Cancelled 8.4 Immature Gran % (Auto) Cancelled 0.400 Neut % (Auto) Cancelled 77.4 H Lymph % (Auto) Cancelled 16.3 L [place] % (Auto) Cancelled 5.5 Eos % (Auto) Cancelled 0.2 Baso % (Auto) Cancelled 0.2 Absolute Neuts (auto) Cancelled 10.7 H Absolute Lymphs (auto) Cancelled 2.25 Total Counted Cancelled Neutrophils % (Manual) Cancelled Band Neutrophils % Cancelled Lymphocytes % (Manual) Cancelled Monocytes % (Manual) Cancelled Eosinophils % (Manual) Cancelled Basophils % (Manual) Cancelled Metamyelocytes % Cancelled Myelocytes % Cancelled Promyelocytes % Cancelled Blast Cells % Cancelled Plasma Cell % (Manual) Cancelled Other Cells % Cancelled Nucleated RBC % Cancelled 0 Nucleated RBCs/100 WBC Cancelled Differential Comment Cancelled Diff Path Review Cancelled Hypersegmented Neuts Cancelled Atypical Lymphocytes Cancelled Reactive Lymphocytes Cancelled Smudge Cells Cancelled Toxic Granulation Cancelled Toxic Vacuolation Cancelled Dohle Bodies Cancelled Nighat Rods Cancelled Platelet Estimate Cancelled Plt Morphology Comment Cancelled RBC Morphology Cancelled Cancelled Polychromasia Cancelled Hypochromasia Cancelled Basophilic Stippling Cancelled Anisocytosis Cancelled Microcytosis Cancelled Macrocytosis Cancelled Spherocytes Cancelled Sickle Cells Cancelled Target Cells Cancelled Tear Drop Cells Cancelled Ovalocytes Cancelled Stomatocytes Cancelled [place] Bodies Cancelled Ryan Cells Cancelled Bite Cells Cancelled Crenated Cell Cancelled Acanthocytes (Spur) Cancelled Rouleaux Cancelled Schistocytes Cancelled Sodium 135 L Potassium 3.5 Chloride 105 Carbon Dioxide 24.0 Anion Gap 6 BUN 16 Creatinine 1.05 H Estim Creat Clear Calc 60.68 Est GFR (MDRD) Af Amer 76 Est GFR (MDRD) Non-Af 63 BUN/Creatinine Ratio 15.2 Glucose 120 H Calcium 9.4 Total Bilirubin 0.80 AST 12 L ALT 24 Alkaline Phosphatase 79 Total Protein 8.1 Albumin 4.1 Globulin 4.0 Albumin/Globulin Ratio 1.0 Lipase 22 Discharge Plan Triage Chief Complaint: Nausea/Vomiting ED Provider: Agustin Ellis Dx/Rx/DC Orders Clinical Impression: Cyclical vomiting, Mild dehydration Instructions: ED Cyclic Vomiting Syndrome, ED Dehydration (Adult) Prescriptions: No Action metoclopramide HCl [Reglan] 10 mg tablet 10 mg PO Q6H PRN (Reason: nausea and vomiting) Qty: 10 0RF Primary Care Provider: Sergio Grover Referrals: Sergio Grover DO [Primary Care Provider] - 3-5 Days if not improving Florentin Levy DO [Med Staff - Active Staff] - 3-5 Days if not improving Print Language: Martiniquais Disposition Disposition: Home, Self Care Discharge Date/Time: 10/14/23 10:52
--- NOTE | 2023-10-14 09:10 | NURSING ---
CBCD IS Q AND S
[2023-10-14] MEDS: 0.9% Normal Saline (1000mL) 1,000 ML 999 ML IV (09:22)
[2023-10-14] MEDS: LORazepam 2 MG/ML Syringe 1 MG IV (09:23)
[2023-10-14 09:24] LABS: Absolute Lymphocyte Count 2.25 X10^3/uL (0.83-4.51); Absolute Neutrophil Count 10.7 X10^3/uL (2.0-7.7); Basophil# 0.03 X10^3/uL; Basophil% 0.2 % (0-1); Eosinophil# 0.03 X10^3/uL; Eosinophils% 0.2 % (0-5); Hematocrit 41.9 % (37-47); Hemoglobin 13.9 g/dL (12.0-15.0); Lymphocyte # 2.25 X10^3/ul (0.83-4.51); Lymphocyte % 16.3 % (19-41); Mean Corp Hgb Conc 33.2 g/dL (32-36); Mean Corpuscular Volume 84.5 fL (81-99); Mean Platelet Vol. 8.4 fl (6.2-12.0); Monocyte# 0.76 X10^3/uL; Monocyte% 5.5 % (0-10); NRBC Flagged by Analyzer 0 % (0-5); Neutrophil # 10.69 X10^3/uL (2.7-7.7); Neutrophil % 77.4 % (47-70); Platelet Count 275 K/mm3 (150-450); RBC Distribution Width CV 12.1 % (11.6-14.6); RBC Distribution Width SD 37.4 fl (35.1-43.9); Red Blood Count 4.96 M/mm3 (4.2-5.4); White Blood Count 13.8 K/mm3 (4.4-11.0)
[2023-10-14] MEDS: Ondansetron 4 MG/2 ML Vial IV (09:24)
[2023-10-14 09:37] LABS: AST(SGOT) 12 U/L (15-37); Alanine Aminotransfer ALT/SGPT 24 U/L (13-56); Albumin, Serum 4.1 g/dL (3.2-5.0); Alkaline Phosphatase 79 U/L (45-117); Anion Gap 6 (5-15); BUN 16 mg/dL (7-18); BUN/Creat Ratio 15.2 RATIO (10-20); Calcium,Total 9.4 mg/dL (8.5-10.1); Chloride 105 mmol/L (98-107); Creatinine, Serum 1.05 mg/dL (0.55-1.02); EST Glomerular Filtration Rate 63 mL/min (>60); Est Glom Filt Rate - Afr Amer 76 mL/min (>60); Estimated Creatinine Clearance 60.68 ml/min; Glucose 120 mg/dL (74-106); Lipase 22 U/L (13-75); Potassium 3.5 mmol/L (3.5-5.1); Protein, Total 8.1 g/dL (6.4-8.2); Sodium Level 135 mmol/L (136-145)
[2023-10-14] MEDS: Famotidine 200 MG/20 ML MDV 20 MG in 0.9% Normal Saline (Pres. free 8 ML 300 MG IV (09:38)
[2023-10-14 10:07] VITALS: BP 96/56; PULSE 66; RESP 18; O2SAT 99
[2023-10-14] MEDS: 0.9% Normal Saline (500mL Bag) 500 ML 999 ML IV (10:27)
[2023-10-14 10:37] VITALS: BP 117/87; PULSE 64; RESP 16; O2SAT 93
[2023-10-14 10:50] VITALS: BP 119/86; PULSE 72; RESP 16; TEMP 36.6; O2SAT 98
== END 2023-10-14 10:52 | disposition home or self-care (01) ==
PROVIDERS: Emergency Provider Emergency Medicine; PCP Student in an Organized Health Care Education/Training Program; Visit Provider Emergency Medicine
DX: R11.15 Cyclical vomiting syndrome unrelated to migraine (principal); E86.0 Dehydration; R19.7 Diarrhea, unspecified; Z87.891 Personal history of nicotine dependence
CPT/HCPCS: 80053; 83690; 85025; 96361; 96374; 96375; 99282; J7030; J7040; A4216; J2405; J3490

== ENCOUNTER 2023-10-15 02:48 | Observation (INO) | payer MEDICAID, SELFPAY ==
[2023-10-15] VITALS (9 sets, daily range): BP systolic 94–144; BP diastolic 62–96; PULSE 62–90; RESP 16–18; TEMP 36.2–37.3; O2SAT 95–100; BMI 24.8; BMI 24.5
--- NOTE | 2023-10-15 02:57 | EX.ED.DYSGE1 ---
HPI History of Present Illness Chief Complaint: Nausea/Vomiting Detail of Chief Complaint: Nausea and vomiting Informant: patient Narrative Narrative: Patient presents with nausea and vomiting. She has history of cyclic vomiting syndrome. She was seen by myself on the and then seen again by Dr. Dong on the for same complaint. Patient states that yesterday she went home and started vomiting again immediately. She complains of lower abdominal discomfort. During my initial encounter with her 3 days ago I did obtain labs and a CT scan of the abdomen pelvis that was unremarkable. 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 She denies fevers. She denies urinary symptoms. PFSH [facility] Medical History Anxiety Depression Pancreatitis Leukocytosis Former tobacco use Marijuana smoker, episodic Cyclic vomiting syndrome COVID-19 Esophageal reflux Home Medications ?Medication ?Instructions ?Recorded ?Last Taken ?Type metoclopramide HCl 10 mg tablet 10 mg PO Q6H PRN nausea and 10/12/23 Unknown Rx (Reglan) vomiting #10 tabs Allergy/AdvReac Type Severity Reaction Status Date / Time Fish Containing Products Allergy Swelling Verified 10/15/23 02:53 haloperidol (From Haldol) AdvReac Other Verified 10/15/23 02:53 Family History Mother Hypertension Hyperlipidemia Father Hypertension Hyperlipidemia Surgical History History of cholecystectomy Status post cholecystectomy Social History household members: significant other Smoking Status: Former smoker how long ago did patient quit smoking: Quit 15 years prior to current presentation. alcohol intake: never substance use type: marijuana ROS ROS ED Review of Systems ROS Unobtainable: other Constitutional Constitutional ED: Reports lethargy; Denies chills, fever(s), sweats or weight loss Eyes Eyes: Denies blurry vision, change in vision or diplopia ENT ENT ED: Denies rhinorrhea or sore throat Cardiovascular Cardiovascular: Denies chest pain, orthopnea or racing heartbeat Respiratory/Chest Respiratory/Chest: Denies cough, dyspnea, dyspnea on exertion, orthopnea or sputum Gastrointestinal Gastrointestinal: Reports abdominal pain, nausea and vomiting; Denies diarrhea Genitourinary Genitourinary ED: Denies dysuria, hematuria or urinary frequency Musculoskeletal Musculoskeletal: Denies arthralgias, back pain, myalgias or neck pain Integumentary Denies abscess, Abrasions or rash Neurologic Neurologic: Denies headache(s) or weakness Psychiatric Psychiatric: Denies anxiety, depression or suicidal thoughts Endocrine Endocrinology: Denies polydipsia, polyphagia or polyuria Hematologic/Lymphatic Hematologic/Lymphatic: Denies easy bleeding, easy bruising or lymphadenopathy Allergic/Immunologic Allergic/Immunologic ED: Denies mouth swelling, tongue swelling or urticaria EXAM Physical Exam Const Vital Signs: 10/15/23 02:49 Temperature 97.1 F L Temperature Source Temporal Pulse Rate 72 Respiratory Rate 18 Blood Pressure 123/85 H Blood Pressure Mean 97 Pulse Ox 99 Positive well nourished and well developed Constitutional Narrative: Patient actively retching and vomiting as I enter the room. General Appearance ED: well developed and NAD HEENT Reports TM's clear and moist mucous membranes normocephalic and atraumatic; Negative for trauma or tenderness Tympanic Membrane ED: Yes TM's clear Eyes PERRL and EOMs intact bilaterally General Eye ED: Negative for pale conjunctiva or scleral icterus Neck no lymphadenopathy, supple and no JVD General: Negative for tenderness Chest Wall inspection of chest normal and palpation of chest normal Chest: Negative for tenderness Resp normal respiratory effort and clear to auscultation bilaterally Effort and Inspection: Negative for respiratory distress or pain with movement Auscultation: Negative for rhonchi, wheezes or diminished lung sounds Cardio regular rate, regular rhythm, S1 normal heart sound, S2 normal heart sound and no murmurs Peripheral Pulses: pulses 2+ throughout GI normal to inspection, nondistended, normoactive bowel sounds, soft to palpation, non-distended and no masses GI Narrative: Mild diffuse tenderness. There is no rebound, rigidity, or perineal signs. No mass palpated. Back/Spine no CVA tenderness and no thoracic nor lumbar tenderness Extremity normal to inspection General Extremety ED: Negative for edema General Extremity: Negative for edema Neuro oriented x3, CN's II-XII intact bilaterally, no sensory deficits noted and gait normal Sensorium / Orientation: awake, alert, oriented to person, oriented to place and oriented to time Motor Exam: strength 5/5 throughout and strength abnormal Psych mental status grossly normal Skin no rashes or lesions noted and no wounds MDM MDM MDM Narrative Medical decision making narrative: Patient presents for the third time in the last 3 days for evaluation of intractable nausea and vomiting. She has history of cyclic vomiting syndrome. She states that she last smoked marijuana 3 days ago. Patient had been doing well since December of last year. She sees Dr. Mildred LIANG. I saw patient 3 days ago and had significant workup including blood work and CT scan of the abdomen pelvis that was unremarkable. She required multiple rounds of antiemetics and as well as Thorazine. Afterward she was able to keep fluid down and went home. She called work and told him she be able to come in the following day but that evening started having more vomiting and came back to the emergency department and was once again discharged. After getting home yesterday she started throwing up again presents again to the emergency department. IV line established. CBC with differential obtained showed a white count of 12.9 with hemoglobin 13.7 and platelet count of 295. Chemistries unremarkable. BUN 14 and creatinine 1.20. There is been a gradual increase in her BUN from 0.8-1.2. hCG was negative. Lipase normal. LFTs were normal. Patient was given Reglan IV. She continues to complain of nausea. She continues with dry heaves. She was given Zofran 4 mg IV. At this point we will discuss with hospitalist to evaluate patient for admission for intractable nausea and vomiting and cyclic vomiting syndrome Lab Data Attestation: I reviewed the patient's lab results. Labs: Laboratory Results - last 24 hr 10/15/23 03:00 WBC 12.9 H RBC 4.90 Hgb 13.7 Hct 41.9 MCV 85.5 MCH 28.0 MCHC 32.7 RDW Std Deviation 37.9 RDW Coeff of Fabian 12.1 Plt Count 295 MPV 8.5 Immature Gran % (Auto) 0.300 Neut % (Auto) 71.1 H Lymph % (Auto) 22.7 [place] % (Auto) 5.4 Eos % (Auto) 0.2 Baso % (Auto) 0.3 Absolute Neuts (auto) 9.2 H Absolute Lymphs (auto) 2.93 Nucleated RBC % 0 Sodium 138 Potassium 3.4 L Chloride 104 Carbon Dioxide 25.0 Anion Gap 9 BUN 14 Creatinine 1.20 H Estim Creat Clear Calc 57.68 Est GFR (MDRD) Af Amer 65 Est GFR (MDRD) Non-Af 54 L BUN/Creatinine Ratio 11.7 Glucose 135 H Calcium 9.3 Total Bilirubin 0.80 AST 17 ALT 24 Alkaline Phosphatase 79 Total Protein 8.2 Albumin 4.4 Globulin 3.8 Albumin/Globulin Ratio 1.2 Lipase 30 Serum , Qual NEGATIVE Discharge Plan Triage Chief Complaint: Nausea/Vomiting ED Provider: Wellington Candelaria Dx/Rx/DC Orders Clinical Impression: Intractable cyclical vomiting with nausea Prescriptions: No Action metoclopramide HCl [Reglan] 10 mg tablet 10 mg PO Q6H PRN (Reason: nausea and vomiting) Qty: 10 0RF Primary Care Provider: Sergio Grover Referrals: Sergio Grover DO [Primary Care Provider] - Print Language: Mongolian Disposition Disposition: Acute Care [facility]
[2023-10-15] MEDS: 0.9% Normal Saline (1000mL) 1,000 ML 125 ML IV ×4 (03:01→22:57)
[2023-10-15] MEDS: LORazepam 2 MG/ML Syringe 1 MG IV (03:01)
[2023-10-15] MEDS: Metoclopramide 10 MG/2 ML Vial IV (03:01)
[2023-10-15 03:04] LABS: Absolute Lymphocyte Count 2.93 X10^3/uL (0.83-4.51); Absolute Neutrophil Count 9.2 X10^3/uL (2.0-7.7); Basophil# 0.04 X10^3/uL; Basophil% 0.3 % (0-1); Eosinophil# 0.03 X10^3/uL; Eosinophils% 0.2 % (0-5); Hematocrit 41.9 % (37-47); Hemoglobin 13.7 g/dL (12.0-15.0); Lymphocyte # 2.93 X10^3/ul (0.83-4.51); Lymphocyte % 22.7 % (19-41); Mean Corp Hgb Conc 32.7 g/dL (32-36); Mean Corpuscular Volume 85.5 fL (81-99); Mean Platelet Vol. 8.5 fl (6.2-12.0); Monocyte# 0.69 X10^3/uL; Monocyte% 5.4 % (0-10); NRBC Flagged by Analyzer 0 % (0-5); Neutrophil # 9.15 X10^3/uL (2.7-7.7); Neutrophil % 71.1 % (47-70); Platelet Count 295 K/mm3 (150-450); RBC Distribution Width CV 12.1 % (11.6-14.6); RBC Distribution Width SD 37.9 fl (35.1-43.9); White Blood Count 12.9 K/mm3 (4.4-11.0)
[2023-10-15 03:24] LABS: ALB/GLOB Ratio 1.2 RATIO (0.9-2.4); AST(SGOT) 17 U/L (15-37); Alanine Aminotransfer ALT/SGPT 24 U/L (13-56); Albumin, Serum 4.4 g/dL (3.2-5.0); Alkaline Phosphatase 79 U/L (45-117); Anion Gap 9 (5-15); BUN 14 mg/dL (7-18); BUN/Creat Ratio 11.7 RATIO (10-20); Calcium,Total 9.3 mg/dL (8.5-10.1); Chloride 104 mmol/L (98-107); EST Glomerular Filtration Rate 54 mL/min (>60); Est Glom Filt Rate - Afr Amer 65 mL/min (>60); Estimated Creatinine Clearance 57.68 ml/min; Globulin 3.8 g/dL (2.2-4.2); Glucose 135 mg/dL (74-106); Lipase 30 U/L (13-75); Potassium 3.4 mmol/L (3.5-5.1); Protein, Total 8.2 g/dL (6.4-8.2); Sodium Level 138 mmol/L (136-145)
[2023-10-15 03:25] LABS: Internal QC Validated? YES +Cl - CLEAR BKGD; Pregnancy, Serum, hCG Quali. NEGATIVE Negative
[2023-10-15 04:11] LABS: Color, Urine Amber (Yellow); Glucose, Dipstick Normal (Normal); Ketone-Dipstick 50 mg/dl (Negative); Leukocyte Esterase-Dipstick 25 /ul (Negative); Nitrite-Dipstick Negative (Negative); Occult Blood-Urine 25 /ul (Negative); Protein-Dipstick 30 mg/dl (Negative); Specific Gravity, Urine 1.015 (1.002-1.030); Urine Clarity Clear (Clear); Urine Urobilinogen 4 mg/dl (Normal); Urine pH 6.5 (5.0 - 8.0)
[2023-10-15] MEDS: Ondansetron 4 MG/2 ML Vial IV (04:12)
--- NOTE | 2023-10-15 04:13 | PCM.HP.STD ---
HPI - General General Date of Admission: 10/15/23 Date of Service: 10/15/23 Chief Complaint: Intractable nausea and vomiting HPI Narrative SYLVIE MERCADO, is a 38 F who presented to [facility] ED on 10/15/2023 with intractable nausea and vomiting. Saw patient at bedside in the ED. Patient was laying in bed and was comfortable when staying fairly still. She was very fatigued appearing but otherwise conversing normally and in no acute distress. Patient has history of cyclical vomiting syndrome secondary to marijuana use. She previously saw Dr. Levy during admission here back in December 2022. Last admission for this issue was in April. Patient noted that she had been doing fairly well since then but then 3 days ago had an acute onset of nausea with episodes of vomiting that she thought might be due to food poisoning. She came to the ED on 10/[address] abdomen pelvis without contrast was done, showed moderate diffuse fecal retention but otherwise no concerning findings. Patient had improvement with medications given in the ED and was able to tolerate oral intake, and she was discharged home. However, she had recurrence of symptoms and again came to the ED on 10/13. Again improved with treatment and was discharged home. Today is her third ED visit in 4 days. She was given several medications in the ED for symptom control without as much improvement as previous ED visits. She currently states that she continues to feel nauseous and like she could vomit again soon. Patient states she last smoked marijuana 3 days ago. She reports only smoking/vaping marijuana occasionally now as she has been working 2 jobs. States that her last bowel movement was 2 to 3 days ago. Denies any significant history of constipation and denies feeling any pain or distention in her abdomen currently. Denies any fevers or chills. No other acute concerns at this time. Vitals in ED were unremarkable. Labs notable for WBC count 12.9, potassium 3.4, creatinine 1.20, otherwise unremarkable. CT abdomen pelvis from previous ED visit as noted above. [facility] Medical History Anxiety Depression Pancreatitis Leukocytosis Former tobacco use Marijuana smoker, episodic Cyclic vomiting syndrome COVID-19 Esophageal reflux Home Medications ?Medication ?Instructions ?Recorded ?Last Taken ?Type metoclopramide HCl 10 mg tablet 10 mg PO Q6H PRN nausea and 10/12/23 Unknown Rx (Reglan) vomiting #10 tabs Allergy/AdvReac Type Severity Reaction Status Date / Time Fish Containing Products Allergy Swelling Verified 10/15/23 02:53 haloperidol (From Haldol) AdvReac Other Verified 10/15/23 02:53 Family History Mother Hypertension Hyperlipidemia Father Hypertension Hyperlipidemia Surgical History History of cholecystectomy Status post cholecystectomy Social History household members: significant other Smoking Status: Former smoker how long ago did patient quit smoking: Quit 15 years prior to current presentation. alcohol intake: never substance use type: marijuana ROS Constitutional Constitutional: Reports fatigue, malaise and weakness; Denies chills or fever(s) Cardiovascular Cardiovascular: Denies chest pain Respiratory/Chest Respiratory/Chest: Denies cough or shortness of breath at rest Gastrointestinal Gastrointestinal: Reports nausea and vomiting; Denies abdominal pain, constipation or diarrhea Genitourinary Genitourinary: Denies dysuria Musculoskeletal Musculoskeletal: Denies arthralgias, back pain or myalgias Neurologic Neurologic: Denies dizziness, focal weakness or headache(s) Vital Signs Vital Signs Vital Signs: 10/15/23 02:49 Temperature 97.1 F L Temperature Source Temporal Pulse Rate 72 Respiratory Rate 18 Blood Pressure 123/85 H Blood Pressure Mean 97 Pulse Ox 99 Weight Weight: 63.7 kg Body Mass Index (BMI) 24.8 Physical Exam Const alert, oriented x3, no apparent distress and average body habitus Constitutional Narrative: Younger female, fatigued appearing, appears mildly uncomfortable due to ongoing nausea but otherwise laying in bed and conversing normally. General Appearance: cooperative HEENT normocephalic, head/scalp atraumatic, hearing grossly normal bilaterally and nasal mucous membranes and turbinates normal HEENT Narrative: Dry mucous membranes. Eyes PERRL, EOMs intact bilaterally and conjunctivae normal Neck full ROM Chest inspection of chest normal Resp normal respiratory effort, normal air movement, no use of accessory muscles and clear to auscultation bilaterally Cardio regular rate, regular rhythm, no murmurs and peripheral pulses 2+ throughout GI normal to inspection, nondistended, normoactive bowel sounds, soft to palpation, non-tender and non-distended Back/Spine normal ROM Extremity normal to inspection, full ROM and no pedal edema Skin no rashes or lesions noted Neuro moves all extremities and no focal motor deficits Speech: speech normal Psych mental status grossly normal Mood & Affect: depressed Results Lab / Micro Data 10/15/23 03:00 10/15/23 03:00 Labs: Laboratory Results - last 24 hr 10/15/23 03:00: WBC 12.9 H, RBC 4.90, Hgb 13.7, Hct 41.9, MCV 85.5, MCH 28.0, MCHC 32.7, RDW Std Deviation 37.9, RDW Coeff of Fabian 12.1, Plt Count 295, MPV 8.5, Immature Gran % (Auto) 0.300, Neut % (Auto) 71.1 H, Lymph % (Auto) 22.7, [place] % (Auto) 5.4, Eos % (Auto) 0.2, Baso % (Auto) 0.3, Absolute Neuts (auto) 9.2 H, Absolute Lymphs (auto) 2.93, Nucleated RBC % 0, Sodium 138, Potassium 3.4 L, Chloride 104, Carbon Dioxide 25.0, Anion Gap 9, BUN 14, Creatinine 1.20 H, Estim Creat Clear Calc 57.68, Est GFR (MDRD) Af Amer 65, Est GFR (MDRD) Non-Af 54 L, BUN/Creatinine Ratio 11.7, Glucose 135 H, Calcium 9.3, Total Bilirubin 0.80, AST 17, ALT 24, Alkaline Phosphatase 79, Total Protein 8.2, Albumin 4.4, Globulin 3.8, Albumin/Globulin Ratio 1.2, Lipase 30, Serum , Qual NEGATIVE Assessment & Plan Assessment/Plan (1) Intractable cyclical vomiting with nausea: (2) Mild dehydration: (3) Cyclic vomiting syndrome: PLAN: Plan Patient is a 38-year-old female who presented [facility] ED on 10/15/2023 with recurrent nausea and vomiting. 1. Intractable nausea/vomiting, history of cyclic vomiting syndrome in setting of marijuana use ? Admit under observation status to [facility]. GI consulted. Per Dr. Levy's note from previous hospitalization in 12/2022, he was treating the patient with scheduled IV Reglan, Xanax, scopolamine patch and rectal Compazine; will start this treatment regimen now. Continue IV maintenance fluids for now. Will start clear liquid diet and advance as tolerated. Appreciate further GI recs. 2. Mild leukocytosis ? WBC count 12.9 on admit. Low concern for active infection, suspect mild hemoconcentration and possible mild stress due to volume loss and significant nausea with vomiting. Follow-up a.m. CBC. 3. Mild creatinine elevation ? Creatinine 1.20 on admit, baseline appears to be around 0.8-1.0. Presumed prerenal etiology from volume loss and poor p.o. intake. On IV maintenance fluids as noted above. Monitor daily BMP and urine output. 4. Mild hypokalemia ? Potassium 3.4 on admit. Presumed secondary to GI losses. Replete as needed. DVT prophylaxis: Low risk, ambulate CODE STATUS: Full code, verified Expected disposition: Home, 1 to 2 days Total clinical time spent by myself addressing the patient's medical issues, reviewing all the data, and collaborating with patient's care team: 55 minutes. Charges/Coding Visit Charges Inpatient E&M: 69987 Init Hosp L2
[2023-10-15 04:18] LABS: Urine Bilirubin Dipstick 1 mg/dL (Negative)
[2023-10-15 04:19] LABS: Bacteria 2+ /hpf (None Seen); Fine Granular Cast- Urine 0-5 SEEN /lpf (0-5); Hyaline Cast 0-5 SEEN /lpf (0-5); Mucous, Urine 4+ /hpf (<or=2+); Red Blood Cells-Urine 5-10 SEEN /hpf (0-5); Squamous Epithelial Cells - UA 10-25 SEEN /hpf (5-10); White Blood Cells 5-10 SEEN /hpf (0-5)
[2023-10-15 04:39] LABS: Magnesium 2.1 mg/dL (1.6-2.6)
[2023-10-15] MEDS: proCHLORPERazine 25 MG Suppos. RC (05:46)
[2023-10-15] MEDS: Scopolamine 1mg/72hr Patch 1 PATCH TD (05:46)
[2023-10-15] MEDS: Metoclopramide 10 MG/2 ML Vial 5 MG IV ×4 (05:47→22:57)
[2023-10-15] MEDS: 0.9% Saline Lock 10 ML Syringe IV ×3 (05:47→17:05)
[2023-10-15] MEDS: ALPRAZolam 0.25 MG Tablet 0.125 MG PO ×3 (06:02→22:55)
[2023-10-15] MEDS: Ceftriaxone 1 GM/50 ML BAG IV (09:27)
--- NOTE | 2023-10-15 11:23 | PN_ITS ---
Subjective Subjective Patient seen and examined. She still complains of incessant nausea and vomiting. She says she hasnt had a bowel movement in 2 days, and also says she has not passed gas since admission. She denies any abdominal distension, but feels very uncomfortable. She says she now smokes marijuana every so often; when asked to clarify, she said she smokes marijuana 2-3 times a week, when previously she smoked it daily. She denies any urinary symptoms. She did have 3+ bacteria in her urine. Objective Data Objective Data Vital Signs: Vital Signs Temp Pulse Resp BP Pulse Ox O2 Del Method 99.1 F 82 16 137/92 H 95 Room Air 10/15/23 07:42 10/15/23 07:42 10/15/23 07:42 10/15/23 07:42 10/15/23 08:08 10/15/23 08:08 Oxygen Delivery Method Room Air Weight: 138 lb 10.732 oz Body Mass Index (BMI) 24.5 Intake & Output: Intake and Output for Last 24 Hours 10/13/23 10/14/23 10/15/23 23:59 23:59 23:59 Intake Total 974.16 / 974.16 Output Total 100 / 100 Balance 874.16 / 874.16 Lab / Micro Data 10/15/23 03:00 10/15/23 03:00 Labs: Laboratory Results - last 24 hr 10/15/23 03:00: WBC 12.9 H, RBC 4.90, Hgb 13.7, Hct 41.9, MCV 85.5, MCH 28.0, MCHC 32.7, RDW Std Deviation 37.9, RDW Coeff of Fabian 12.1, Plt Count 295, MPV 8.5, Immature Gran % (Auto) 0.300, Neut % (Auto) 71.1 H, Lymph % (Auto) 22.7, [place] % (Auto) 5.4, Eos % (Auto) 0.2, Baso % (Auto) 0.3, Absolute Neuts (auto) 9.2 H, Absolute Lymphs (auto) 2.93, Nucleated RBC % 0, Sodium 138, Potassium 3.4 L, Chloride 104, Carbon Dioxide 25.0, Anion Gap 9, BUN 14, Creatinine 1.20 H, Estim Creat Clear Calc 57.68, Est GFR (MDRD) Af Amer 65, Est GFR (MDRD) Non-Af 54 L, BUN/Creatinine Ratio 11.7, Glucose 135 H, Calcium 9.3, Magnesium 2.1, Total Bilirubin 0.80, AST 17, ALT 24, Alkaline Phosphatase 79, Total Protein 8.2, Albumin 4.4, Globulin 3.8, Albumin/Globulin Ratio 1.2, Lipase 30, Serum , Qual NEGATIVE 10/15/23 03:56: Urine Color Emma, Urine Clarity Clear, Urine pH 6.5, Ur Specific [place] 1.015, Urine Protein 30 H, Urine Glucose (UA) Normal, Urine Ketones 50 H, Urine Occult Blood 25 H, Urine Nitrite Negative, Urine Bilirubin 1 H, Urine Urobilinogen 4 H, Ur Leukocyte Esterase 25 H, Urine RBC 5-10 SEEN, Urine WBC 5-10 SEEN, Ur Squamous Epith Cells 10-25 SEEN, Urine Bacteria 2+, Hyaline Casts 0-5 SEEN, Fine Granular Casts 0-5 SEEN, Urine Mucus 4+ Physical Exam Const alert and oriented x3 Constitutional Narrative: looks uncomfortable and in pain due to incessant nausea and vomiting. HEENT normocephalic, head/scalp atraumatic, moist oral mucous membranes and oropharynx normal Eyes PERRL and EOMs intact bilaterally Neck no lymphadenopathy, supple and no JVD Lymph Lymphatic: no lymphadenopathy noted and no lymphedema noted Resp normal respiratory effort, normal air movement and clear to auscultation bilaterally Cardio regular rate, regular rhythm, S1 normal heart sound, S2 normal heart sound and no murmurs GI normal to inspection, nondistended, normoactive bowel sounds and soft to palpation GI Narrative: mild generalised tenderness, no guarding or rebound tenderness. Extremity normal capillary refill, no clubbing, cyanosis or edema and no calf tenderness General Extremity: no tenderness to palpation of joints or extremities Skin General Skin Exam: no breakdown Neuro CN's II-XII intact bilaterally, no focal motor deficits, no sensory deficits noted and deep tendon reflexes 2+ bilaterally Motor Exam: strength 5/5 throughout and general weakness Psych thought process normal and cooperative Appearance: appropriate Assessment & Plan Assessment/Plan (1) Intractable cyclical vomiting with nausea: (2) UTI (urinary tract infection): PLAN: Plan #Intractable nausea and vomiting * Likely due to probable food poisoning from her recent meal at [employer], cyclical vomiting from marijuana and UTI * Patient says she had a meal with her friend at [employer] on Friday in an [id number] location. This subsequently both had in incessant nausea and vomiting. However her friends only resolved but has persisted. She does use marijuana and says she is cut down from daily use to about 2-3 times weekly. She has had cyclical vomiting in the past which was thought to be due to marijuana and was on Reglan and scopolamine as well as Compazine. * However her urine also shows 3+ bacteria so UTI may also be a confounding factor. Will start on IV ceftriaxone and get urine cultures. * Patient currently on clear liquids but she is still having nausea and vomiting. Will keep n.p.o. and hydrate aggressively with IV fluids. Continue nausea medication. * She says she has not passed any gas or had any bowel movement since she was admitted. Her abdomen is not distended and she does not have increased bowel sounds. If this persist, will get abdominal x-rays to check for IBS or obstruction. #Probable UTI: As above. WBC was 12.9 urinalysis showed evidence of UTI. Started on IV ceftriaxone. Urine cultures pending. #Elevated creatinine: Does not meet criteria for DALE. Likely prerenal due to decreased intake and incessant nausea and vomiting. Currently being hydrated with IV fluids. Will trend creatinine. #Hypokalemia: Potassium was 3.4. Likely due to vomiting. Will replace and trend. #Marijuana dependence: Patient counseled to quit as it may be contributing to her recurrent nausea and vomiting. #DVT prophylaxis: Low risk. Encourage ambulation Charges/Coding Visit Charges Inpatient E&M: 67381 [facility] Hosp L3
[2023-10-15] MEDS: DiphenhydrAMINE 25 MG, ChlorproMAZINE IM 50 MG in 0.9% Normal Saline (250mL Bag) 250 ML 252.5 MG IV (14:13)
--- NOTE | 2023-10-15 16:51 | CON.PCM.GI_ITS ---
HPI Consult Data Date of Consult: 10/15/23 HPI Narrative Reason for Consultation: Intractable nausea vomiting HPI Narrative: SYLVIE MERCADO, is a 38 F who presents [facility] Medical History Anxiety Depression Pancreatitis Leukocytosis Former tobacco use Marijuana smoker, episodic Cyclic vomiting syndrome COVID-19 Esophageal reflux Home Medications ?Medication ?Instructions ?Recorded ?Last Taken ?Type metoclopramide HCl 10 mg tablet 10 mg PO Q6H PRN nausea and 10/12/23 Unknown Rx (Reglan) vomiting #10 tabs Allergy/AdvReac Type Severity Reaction Status Date / Time Fish Containing Products Allergy Swelling Verified 10/15/23 02:53 haloperidol (From Haldol) AdvReac Other Verified 10/15/23 02:53 Family History Mother Hypertension Hyperlipidemia Father Hypertension Hyperlipidemia Surgical History History of cholecystectomy Status post cholecystectomy Social History household members: significant other Smoking Status: Former smoker how long ago did patient quit smoking: Quit 15 years prior to current presentation. alcohol intake: never substance use type: marijuana Physical Exam Const alert and oriented x3 Constitutional Narrative: looks uncomfortable and in pain due to incessant nausea and vomiting. HEENT normocephalic, head/scalp atraumatic, moist oral mucous membranes and oropharynx normal Eyes PERRL and EOMs intact bilaterally Neck no lymphadenopathy, supple and no JVD Lymph Lymphatic: no lymphadenopathy noted and no lymphedema noted Resp normal respiratory effort, normal air movement and clear to auscultation bilaterally Cardio regular rate, regular rhythm, S1 normal heart sound, S2 normal heart sound and no murmurs GI normal to inspection, nondistended, normoactive bowel sounds and soft to palpation GI Narrative: mild generalised tenderness, no guarding or rebound tenderness. Extremity normal capillary refill, no clubbing, cyanosis or edema and no calf tenderness General Extremity: no tenderness to palpation of joints or extremities Skin General Skin Exam: no breakdown Neuro CN's II-XII intact bilaterally, no focal motor deficits, no sensory deficits noted and deep tendon reflexes 2+ bilaterally Motor Exam: strength 5/5 throughout and general weakness Psych thought process normal and cooperative Appearance: appropriate Lab / Micro Data 10/15/23 03:00 10/15/23 03:00 Labs: Laboratory Results - last 24 hr 10/15/23 03:00: WBC 12.9 H, RBC 4.90, Hgb 13.7, Hct 41.9, MCV 85.5, MCH 28.0, MCHC 32.7, RDW Std Deviation 37.9, RDW Coeff of Fabian 12.1, Plt Count 295, MPV 8.5, Immature Gran % (Auto) 0.300, Neut % (Auto) 71.1 H, Lymph % (Auto) 22.7, Canadian % (Auto) 5.4, Eos % (Auto) 0.2, Baso % (Auto) 0.3, Absolute Neuts (auto) 9.2 H, Absolute Lymphs (auto) 2.93, Nucleated RBC % 0, Sodium 138, Potassium 3.4 L, Chloride 104, Carbon Dioxide 25.0, Anion Gap 9, BUN 14, Creatinine 1.20 H, Estim Creat Clear Calc 57.68, Est GFR (MDRD) Af Amer 65, Est GFR (MDRD) Non-Af 54 L, BUN/Creatinine Ratio 11.7, Glucose 135 H, Calcium 9.3, Magnesium 2.1, Total Bilirubin 0.80, AST 17, ALT 24, Alkaline Phosphatase 79, Total Protein 8.2, Albumin 4.4, Globulin 3.8, Albumin/Globulin Ratio 1.2, Lipase 30, Serum , Qual NEGATIVE 10/15/23 03:56: Urine Color Emma, Urine Clarity Clear, Urine pH 6.5, Ur Specific [place] 1.015, Urine Protein 30 H, Urine Glucose (UA) Normal, Urine Ketones 50 H, Urine Occult Blood 25 H, Urine Nitrite Negative, Urine Bilirubin 1 H, Urine Urobilinogen 4 H, Ur Leukocyte Esterase 25 H, Urine RBC 5-10 SEEN, Urine WBC 5-10 SEEN, Ur Squamous Epith Cells 10-25 SEEN, Urine Bacteria 2+, Hyaline Casts 0-5 SEEN, Fine Granular Casts 0-5 SEEN, Urine Mucus 4+ Assessment & Plan Assessment/Plan (1) Intractable vomiting: PLAN: She should get scopolamine patch, rectal Compazine, Xanax and IV Reglan. She has not had any vomiting but she still complains of nausea. I do not know if her nausea is all secondary to issues with her GI tract. Of note, she has a pre-existing diagnosis of cyclic vomiting syndrome that I believe has been exacerbated by chronic marijuana usage. Likely her nausea and complaints have a supratentorial component. I am not sure she has depression. She already has a diagnosis of anxiety and is not being treated. (2) Marijuana use: PLAN: There have been some studies with buspirone 10 mg 3 times a day for marijuana hyperemesis in patients that are refractory to haloperidol. That may be some usage in the future. PLAN: Plan She will also undergo an upper endoscopy to evaluate upper GI tract. She was explained alternatives, risk, benefit including outstanding bleeding, infection, sepsis, perforation, need for emergent surgery . She have an ASA of 2. Charges/Coding Visit Charges Inpatient E&M: 11530 Init Hosp L3
[2023-10-15] MEDS: Ketorolac 30 MG/ML Syringe IV ×2 (17:05→22:56)
--- NOTE | 2023-10-15 17:10 | NURSING ---
spoke with lab- states they will run urine off of urine already down there
[2023-10-15 17:37] LABS: Internal QC Validated? YES +Cl - CLEAR BKGD; Pregnancy, Urine Negative Negative
[2023-10-15] MEDS: Senna Tablet 1 TABLET PO (22:55)
[2023-10-16] VITALS (12 sets, daily range): BP systolic 86–125; BP diastolic 56–90; PULSE 55–89; RESP 16–18; TEMP 36.6–37.6; O2SAT 97–100; BMI 24.5
--- NOTE | 2023-10-16 04:57 | EKG12_ITS ---
Test Reason : AM EKG Blood Pressure : / mmHG Vent. Rate : 056 BPM Atrial Rate : 056 BPM P-R Int : 158 ms QRS Dur : 076 ms QT Int : 442 ms P-R-T Axes : 073 071 061 degrees QTc Int : 426 ms Sinus bradycardia Otherwise normal ECG When compared with ECG of 23-DEC-2022 02:00, No significant change was found Confirmed by PATY JIMENEZ, LEXA ([id number]), movie editor KYLER MADISON ([id number]) on 10/16/2023 2:34:01 PM Referred By: RITA Confirmed By:LEXA NEWMAN MD
[2023-10-16] MEDS: ALPRAZolam 0.25 MG Tablet 0.125 MG PO ×3 (05:13→22:40)
[2023-10-16] MEDS: Ketorolac 30 MG/ML Syringe IV ×4 (05:13→23:46)
[2023-10-16] MEDS: 0.9% Normal Saline (1000mL) 1,000 ML 125 ML IV ×2 (05:13→17:52)
[2023-10-16] MEDS: Metoclopramide 10 MG/2 ML Vial 5 MG IV ×4 (05:14→23:43)
[2023-10-16 07:34] LABS: Hematocrit 32.5 % (37-47); Hemoglobin 10.6 g/dL (12.0-15.0); Mean Corp Hgb Conc 32.6 g/dL (32-36); Mean Corpuscular Hgb 28.4 pg (27.0-32.0); Mean Corpuscular Volume 87.1 fL (81-99); Platelet Count 220 K/mm3 (150-450); RBC Distribution Width SD 38.5 fl (35.1-43.9); Red Blood Count 3.73 M/mm3 (4.2-5.4); White Blood Count 7.8 K/mm3 (4.4-11.0)
[2023-10-16] MEDS: proCHLORPERazine 25 MG Suppos. RC (07:54)
[2023-10-16 08:25] LABS: Anion Gap 6 (5-15); BUN 12 mg/dL (7-18); BUN/Creat Ratio 12.9 RATIO (10-20); Calcium,Total 7.9 mg/dL (8.5-10.1); Chloride 115 mmol/L (98-107); Creatinine, Serum 0.93 mg/dL (0.55-1.02); EST Glomerular Filtration Rate 72 mL/min (>60); Est Glom Filt Rate - Afr Amer 87 mL/min (>60); Glucose 77 mg/dL (74-106); Potassium 3.4 mmol/L (3.5-5.1); Sodium Level 144 mmol/L (136-145)
[2023-10-16] MEDS: Ceftriaxone 1 GM/50 ML BAG IV (09:39)
--- NOTE | 2023-10-16 10:10 | PN_ITS ---
Subjective Subjective Patient seen and examined. She says she is feeling better today. Her nausea and vomiting have improved. She denies any abdominal pain, fever, chills or any other symptoms. Review of systems is otherwise negative. Objective Data Objective Data Vital Signs: Vital Signs Temp Pulse Resp BP Pulse Ox O2 Del Method 98.4 F 56 L 16 111/78 100 Room Air 10/16/23 09:38 10/16/23 09:38 10/16/23 09:38 10/16/23 09:38 10/16/23 09:38 10/16/23 09:38 Oxygen Delivery Method Room Air Weight: 138 lb 10.732 oz Body Mass Index (BMI) 24.5 Intake & Output: Intake and Output for Last 24 Hours 10/14/23 10/15/23 10/16/23 23:59 23:59 23:59 Intake Total 2720.41 / 2720.41 1337.50 / 1337.50 Output Total 150 / 150 Balance 2570.41 / 2570.41 1337.50 / 1337.50 Lab / Micro Data 10/16/23 07:01 10/16/23 07:01 Labs: Laboratory Results - last 24 hr 10/15/23 03:56: Urine Test Negative 10/16/23 07:01: WBC 7.8, RBC 3.73 L, Hgb 10.6 L, Hct 32.5 L, MCV 87.1, MCH 28.4, MCHC 32.6, RDW Std Deviation 38.5, RDW Coeff of Fabian 12.0, Plt Count 220, MPV 9.0, Sodium 144, Potassium 3.4 L, Chloride 115 H, Carbon Dioxide 23.0, Anion Gap 6, BUN 12, Creatinine 0.93, Estim Creat Clear Calc 74.00, Est GFR (MDRD) Af Amer 87, Est GFR (MDRD) Non-Af 72, BUN/Creatinine Ratio 12.9, Glucose 77, Calcium 7.9 L Physical Exam Const alert, oriented x3, no apparent distress and average body habitus Constitutional Narrative: looks much better today. General Appearance: cooperative HEENT normocephalic, head/scalp atraumatic, hearing grossly normal bilaterally, nasal mucous membranes and turbinates normal, moist oral mucous membranes and oropharynx normal Eyes PERRL, EOMs intact bilaterally and conjunctivae normal Neck full ROM, no lymphadenopathy, supple and no JVD Lymph Lymphatic: no lymphadenopathy noted and no lymphedema noted Chest inspection of chest normal Resp normal respiratory effort, normal air movement, no use of accessory muscles and clear to auscultation bilaterally Cardio regular rate, regular rhythm, S1 normal heart sound, S2 normal heart sound, no murmurs and peripheral pulses 2+ throughout GI normal to inspection, nondistended, normoactive bowel sounds, soft to palpation, non-tender and non-distended Back/Spine normal ROM Extremity normal to inspection, full ROM, normal capillary refill, no clubbing, cyanosis or edema, no calf tenderness and no pedal edema General Extremity: no tenderness to palpation of joints or extremities Skin no rashes or lesions noted General Skin Exam: no breakdown Neuro CN's II-XII intact bilaterally, moves all extremities, no focal motor deficits, no sensory deficits noted and deep tendon reflexes 2+ bilaterally Speech: speech normal Motor Exam: strength 5/5 throughout and general weakness Psych mental status grossly normal, thought process normal and cooperative Appearance: appropriate Assessment & Plan Assessment/Plan (1) Intractable cyclical vomiting with nausea: (2) UTI (urinary tract infection): PLAN: Plan #Intractable nausea and vomiting * Likely due to probable food poisoning from her recent meal at [employer], cyclical vomiting from marijuana and UTI * abdominal pain, nausea and vomiting have improved significantly today. * GI on board. For EGD today. * counseled to quit using marijuana also. * currently NPO'; to start on clear liquids after she has the EGD * on reglan and compazine. Continue hydrating with iVF * now passing gas. #Probable UTI: As above. wbc down to 7.8. uriine culture is pending. #Elevated creatinine: resolved. Cr is down to 0.93 today #Hypokalemia: potassium remains 3.4. Will replace and trend. #Marijuana dependence: Patient counseled to quit as it may be contributing to her recurrent nausea and vomiting. #DVT prophylaxis: Low risk. Encourage ambulation Charges/Coding Visit Charges Inpatient E&M: 82142 Subs Hosp L2
[2023-10-16] MEDS: 0.9% Saline Lock 10 ML Syringe IV ×2 (11:28→17:52)
[2023-10-16] MEDS: 0.9% Normal Saline (1000mL) 1,000 ML 15 ML IV (12:46)
--- NOTE | 2023-10-16 12:53 | PRE.ANES_ITS ---
ASA Classification* ASA Classification ASA Classification: 2 Assessment & Plan Anesthesia* Anesthesia Assessment Anesthesia Assessment: Discussed sedation and/or anesthesia options, risks, benefits, and alternatives with patient/parents/legal guardian/POA. Questions invited. The patient/parents/legal guardian/POA seems to understand and agrees to proceed with anesthesia plan. Reviewed the physical assessment, medical history, allergy history and patient home medications list prior to surgery/procedure/anesthetic and documented any changes. Performed airway and anesthesia risk assessments. Anesthesia Type Anesthesia Type: MAC History Source History Obtained from:: Patient and Chart Anesthesia Focused Assessment* Temperature: 98.4 F Pulse Rate: 56 Blood Pressure: 111/78 Respiratory Rate: 16 Pulse Ox: 100 Oxygen Delivery Method: Room Air Airway Assessment Mouth opens: >3 cm Mallampati Score: I Teeth Condition: Intact Neck Range of motion (ROM): Full ROM Pertinent Findings EKG Pertinent Findings:: October 16, 2023. Sinus bradycardia at 56 bpm. Focused Labs Anesthesia Preop lab: CBC WBC 7.8 K/mm3 (4.4-11.0) 10/16/23 07:01 RBC 3.73 M/mm3 (4.2-5.4) L 10/16/23 07:01 Hgb 10.6 g/dL (12.0-15.0) L 10/16/23 07:01 Hct 32.5 % (37-47) L 10/16/23 07:01 Plt Count 220 K/mm3 (150-450) 10/16/23 07:01 CHEMISTRY Potassium 3.4 mmol/L (3.5-5.1) L 10/16/23 07:01 Sodium 144 mmol/L (136-145) 10/16/23 07:01 Magnesium 2.1 mg/dL (1.6-2.6) 10/15/23 03:00 Phosphorus 2.4 mg/dL (2.5-4.9) L 05/14/23 07:50 BUN 12 mg/dL (7-18) 10/16/23 07:01 Creatinine 0.93 mg/dL (0.55-1.02) 10/16/23 07:01 Glucose 77 mg/dL (74-106) 10/16/23 07:01 TSH 0.42 uIU/mL (0.358-3.74) 05/14/23 07:50 COAG HCG, Quant < 1 mIU/mL (<9 non-preg) 10/30/12 05:45 Urine Test Negative Negative 10/15/23 03:56 Pre-Assessment Diagnosis/Proposed Procedure Planned Operative Procedure(s): Esophagogastroduodenoscopy with possible cautery and or injection therapy. 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 When Was Last Pacemaker Check QUESTION #4 FULL TEXT: You/Your Family Experience fever (hyperthermia) with Anesthesia Last Oral Intake Last Oral intake: Last Oral Intake NPO since 00:00 10/16/23 11:30 Meds taken in AM with sips of Yes 10/16/23 11:30 water? Meds patient instructed to xanax 10/16/23 11:30 take am of surgery PONV PONV - ancient art curator: PONV - ancient art curator Female HX of Motion Sickness HX of N/V After Surgery Non-Smoker Duration of Surgery greater than 60 minutes Number of Risk Factors PONV Score Height & Weight Height & Weight: Anesthesia: Height & Weight Height 5 ft 3 in 10/16/23 11:30 Weight: 62.9 kg 10/16/23 11:30 Body Mass Index (BMI) 24.5 10/16/23 11:30 Respiratory Assessment Respiratory Assessment - ancient art curator: Respiratory Tract Infection Hx - ancient art curator Hx Respiratory Tract Infection No 10/16/23 05:12 STOP Sleep Apnea STOP Sleep Apnea - ancient art curator: STOP Sleep Apnea - ancient art curator Hx Hypertension No 10/15/23 04:53 Hx Sleep Apnea No 10/15/23 04:53 CPAP No 05/13/23 14:35 BIPAP No 05/13/23 14:35 Do you snore loudly (louder No 10/15/23 04:53 than talking or can be heard Do you often feel tired/ No 10/15/23 04:53 fatigued/ sleepy during daytime? Has anyone observed you stop No 10/15/23 04:53 breathing during sleep? STOP Results Negative 10/15/23 04:53 QUESTION #5 FULL TEXT : Do you snore loudly (louder than talking or can be heard through closed doors)? 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 Specify any problems Hx of Preganancy in last 3 No 10/15/23 04:53 Months Nurse Filling Out Transfusion SHILOH 10/15/23 04:53 & Questions: Date: 10/15/23 10/15/23 04:53 Time: 04:53 10/15/23 04:53 Patient unable to answer at this time (ie. confused, unrespo /Reproduction History /Reproductive History - ancient art curator: /Reproductive Hx- ancient art curator Hx Now No 10/16/23 05:12 Gestational Age (in weeks): EDC: Hx Hx Para Hx Section SAB No 10/16/23 05:12 Active Medications Active Medications: Current Medications Generic Name Dose Route Start Last Admin Trade Name Freq PRN Reason Stop Dose Admin Acetaminophen 650 mg 10/15/23 04:45 Acetaminophen 325 Mg Tablet PO Q6H PRN PRN Pain 1-10 Or Fever>100.7 Alprazolam 0.125 mg 10/15/23 06:00 10/16/23 05:13 Alprazolam 0.25 Mg Tablet PO 0.125 mg TID FELICE Administration Bisacodyl 10 mg 10/15/23 04:45 Bisacodyl 10 Mg Suppository RC DAILY PRN constipation Sodium Chloride 1,000 mls @ 125 mls/hr 10/15/23 03:00 10/16/23 10:09 IV 125 mls/hr .Q8H FELICE Infusion Sodium Chloride 250 mls @ 15 mls/hr 10/15/23 04:51 IV .[id number] PRN Additional IVPB Infusion Sodium Chloride 250 mls @ 15 mls/hr 10/15/23 04:51 IV .[id number] PRN Saline Flush Ceftriaxone Sodium 1 gm in 50 mls @ 100 mls/hr 10/15/23 10:00 10/16/23 10:09 Rocephin IV Infused Q24 FELICE Infusion Sodium Chloride 1,000 mls @ 15 mls/hr 10/16/23 12:40 10/16/23 12:46 IV 15 mls/hr .Q48H FELICE Administration Ketorolac Tromethamine 30 mg 10/15/23 18:00 10/16/23 11:28 Ketorolac 30 Mg/Ml Syringe IV 10/20/23 12:34 30 mg Q6 FELICE Administration Melatonin 3 mg 10/15/23 04:45 Melatonin 3 Mg Tablet PO QHS PRN PRN INSOMNIA Metoclopramide HCl 5 mg 10/15/23 06:00 10/16/23 11:28 Metoclopramide 10 Mg/2 Ml Vial IV 5 mg Q6 FELICE Administration Polyethylene Glycol 17 gm 10/15/23 10:00 10/16/23 07:48 Polyethylene Glycol 3350 17 Gm Packet PO Not Given DAILY FELICE Prochlorperazine Maleate 25 mg 10/15/23 04:45 10/16/23 07:54 Prochlorperazine 25 Mg Suppos. RC 25 mg DAILY FELICE Administration Scopolamine HBr 1 patch 10/15/23 04:45 10/15/23 05:46 Scopolamine 1mg/72hr Patch TD 1 patch Q3D@1000 FELICE Administration Senna 1 tablet 10/15/23 10:00 10/16/23 07:48 Senna Tablet PO Not Given BID FELICE Sodium Chloride 10 - 40 ml 10/15/23 04:51 10/16/23 11:28 0.9% Saline Lock 10 Ml Syringe IV 10 ml UD PRN Administration SALINE FLUSH PFSH Medical History Anxiety Depression Pancreatitis Leukocytosis Former tobacco use Marijuana smoker, episodic Cyclic vomiting syndrome COVID-19 Esophageal reflux Home Medications ?Medication ?Instructions ?Recorded ?Last Taken ?Type metoclopramide HCl 10 mg tablet 10 mg PO Q6H PRN nausea and 10/12/23 10/16/23 Rx (Reglan) vomiting #10 tabs Allergy/AdvReac Type Severity Reaction Status Date / Time Fish Containing Products Allergy Swelling Verified 10/15/23 02:53 haloperidol (From Haldol) AdvReac Other Verified 10/15/23 02:53 Family History Mother Hypertension Hyperlipidemia Father Hypertension Hyperlipidemia Surgical History History of cholecystectomy Status post cholecystectomy no surgical history (Tonsils and adenoids removed April 2022. Patient returned to the OR for post tonsillar bleed) Social History household members: significant other Smoking Status: Former smoker how long ago did patient quit smoking: Quit 15 years prior to current presentation. alcohol intake: never substance use type: marijuana Review of Systems (Anesthesia) ROS Narrative System reviewed and no additional complaints, except as documented.
--- NOTE | 2023-10-16 13:15 | EGD_PTH ---
PATIENT: SYLVIE MERCADO LOC: [facility] U#:[id number] AGE/SX: 38/F ROOM: [facility]317 RE10/15/[address]: Dr. Tgean Dickson MD : 1985 BED: 1 DIS: 10/17/2023 SPEC #: [id number] RECD: 10/17/23 09:28 STATUS: EARNEST PETER #: [id number] ALEN: 10/16/23 13:[address]: Florentin Levy DEPT: SURGICAL PATHOLOGY RECD BY: Jose Romero ENTERED: 10/17/23 10:16 SP TYPE: EGD BIOPSY OT DR: Dr. Judah Saxena, DO Dr. Sergio Grover, DO Dr. Tegan Dickson MD Tissues: Duodenum, NOS Procedures: Surgery Specimen Level IV HEADER OPERATION: EGD with biopsy PRE-OP DIAGNOSIS: Intractable cyclical vomiting with nausea, mild dehydration, cyclic vomiting syndrome TISSUE SUBMITTED: Duodenum biopsy MICROSCOPIC DIAGNOSIS Duodenum, biopsy: A fragment of duodenal mucosa with focal ulceration, moderate acute and chronic inflammation. See comment. PRAFUL/ 10/20/2023 COMMENT Extensive flattening and blunting of villi are noted. Significant increase of intraepithelial lymphocytes is not seen. Clinical correlation and appropriate follow up are necessary. Case has been reviewed in consultation with Dr. Langston who concurs with the above diagnosis. IDC:AM MICROSCOPIC DESCRIPTION Slides are reviewed. GROSS DESCRIPTION Received in fixative is one container labeled with the patient's name and designated Duodenum biopsy. The specimen consists of one irregular fragment of light hernández soft tissue that measures 0.4 x 0.3 x 0.1 cm. The specimen is totally submitted in one cassette. PRAFUL/ 10/17/2023 TC:2 CPT:26065
--- NOTE | 2023-10-16 13:51 | OP.EGD_ITS ---
Patient Name: Fadia Pineda Procedure Date: 10/16/2023 1:27 PM Date of : 1985 Age: 38 Procedure: Upper GI endoscopy Indications: Epigastric abdominal pain Providers: Florentin Levy DO Medicines: Monitored Anesthesia Care Patient Profile: This is a 38 year old female. Refer to note in patient chart for documentation of history and physical. Patient has symptoms of acute epigastric abdominal pain and acute vomiting. Complications: No immediate complications. Procedure: Pre-Anesthesia Assessment: - Prior to the procedure, a History and Physical was performed, and patient medications and allergies were reviewed. The patient is competent. The risks and benefits of the procedure and the sedation options and risks were discussed with the patient. All questions were answered and informed consent was obtained. Patient identification and proposed procedure were verified by the physician in the pre-procedure area. Mental Status Examination: alert and oriented. Airway Examination: normal oropharyngeal airway and neck mobility. Respiratory Examination: clear to auscultation. CV Examination: normal. Prophylactic Antibiotics: The patient does not require prophylactic antibiotics. Prior Anticoagulants: The patient has taken no anticoagulant or antiplatelet agents. ASA Grade Assessment: II - A patient with mild systemic disease. After reviewing the risks and benefits, the patient was deemed in satisfactory condition to undergo the procedure. The anesthesia plan was to use monitored anesthesia care (MAC). Immediately prior to administration of medications, the patient was re-assessed for adequacy to receive sedatives. The heart rate, respiratory rate, oxygen saturations, blood pressure, adequacy of pulmonary ventilation, and response to care were monitored throughout the procedure. The physical status of the patient was re-assessed after the procedure. After obtaining informed consent, the endoscope was passed under direct vision. Throughout the procedure, the patient's blood pressure, pulse, and oxygen saturations were monitored continuously. The Endoscope was introduced through the mouth, and advanced to the third part of duodenum. The upper GI endoscopy was accomplished without difficulty. The patient tolerated the procedure well. Scope In: 1:42:39 PM Scope Out: 1:45:15 PM Total Procedure Duration Time 0 hours 2 minutes 36 seconds Findings: LA Grade A (one or more mucosal breaks less than 5 mm, not extending between tops of 2 mucosal folds) esophagitis with no bleeding was found 35 to 38 cm from the incisors. Scattered mild inflammation characterized by erosions and erythema was found in the entire examined stomach. Many non-bleeding superficial duodenal ulcers with no stigmata of bleeding were found in the duodenal bulb, in the first portion of the duodenum and in the second portion of the duodenum. The largest lesion was 5 mm in largest dimension. Biopsies were taken with a cold forceps for histology. Verification of patient identification for the specimen was done. Estimated blood loss was minimal. Impression: - LA Grade A acute esophagitis with no bleeding. - Gastritis. - Non-bleeding duodenal ulcers with no stigmata of bleeding. Biopsied. Recommendation: - Return patient to hospital ly for ongoing care. - Full liquid diet today. - Use Protonix (pantoprazole) 40 mg PO BID for 8 weeks. - Use Reglan (metoclopramide) 5 mg PO QID for 2 weeks. - Continue present medications. Procedure Code(s): --- Professional --- 02429, Esophagogastroduodenoscopy, flexible, transoral; with biopsy, single or multiple CPT copyright 2021 [employer]. All rights reserved. The codes documented in this report are preliminary and upon airport tower controller review may be revised to meet current compliance requirements. Florentin Levy DO 10/16/2023 1:50:40 PM This report has been signed electronically. Number of Addenda: 0 Note Initiated On: 10/16/2023 1:27 PM
--- NOTE | 2023-10-16 13:51 | OP.CCLET_ITS ---
10/16/2023 Sergio Grover [address] [place] [address] Re : Upper GI endoscopy procedure for Fadia Pineda Dear Dr. Grover This procedure was performed on September. My impressions and recommendations are as follows: Impressions : - LA Grade A acute esophagitis with no bleeding. - Gastritis. - Non-bleeding duodenal ulcers with no stigmata of bleeding. Biopsied. Recommendations : - Return patient to hospital ly for ongoing care. - Full liquid diet today. - Use Protonix (pantoprazole) 40 mg PO BID for 8 weeks. - Use Reglan (metoclopramide) 5 mg PO QID for 2 weeks. - Continue present medications. My findings are described in the full procedure note, which is enclosed. If I can be of further assistance, please feel free to contact me at . Sincerely, Florentin Friend, DO 10/16/2023 1:50:40 PM This report has been signed electronically.
--- NOTE | 2023-10-16 13:52 | PCM.POST.ANE ---
Anesthesia: Postop Eval I Current Vital Signs Temperature: 99.6 F Pulse Rate: 89 Blood Pressure: 113/81 Respiratory Rate: 16 Pulse Ox: 100 Oxygen Delivery Method: Room Air Assessment Airway patent: Yes Spontaneous unlabored respirations: Yes Mental status: Awake and Calm nausea: No Vomiting: No Anesthesia Complication: No Fluid Hydration Crystalloid volume administer (ml): 400 Total IV fluid infused: 400 Progress Note Anesthesia document: Postop Eval 1 completed: Yes
[2023-10-16] MEDS: Potassium Chloride Oral Tablet 20 MEQ 40 MEQ PO (14:51)
[2023-10-16] MEDS: Acetaminophen 325 MG Tablet 650 MG PO (16:56)
[2023-10-16] MEDS: MELATONIN 3 MG TABLET PO (22:44)
[2023-10-17] MEDS: 0.9% Normal Saline (1000mL) 1,000 ML 125 ML IV (02:43)
[2023-10-17 02:45] VITALS: BP 106/65; PULSE 59; RESP 16; TEMP 36.9; O2SAT 99
[2023-10-17] MEDS: Metoclopramide 10 MG/2 ML Vial 5 MG IV (05:37)
[2023-10-17] MEDS: Ketorolac 30 MG/ML Syringe IV (05:39)
[2023-10-17] MEDS: ALPRAZolam 0.25 MG Tablet 0.125 MG PO (05:49)
--- NOTE | 2023-10-17 06:54 | NURSING ---
Scopalamine patch removed 10/15 at 1500. Pt experiencing dizziness.
--- NOTE | 2023-10-17 07:35 | POSTOPAN2_ITS ---
Anesthesia Postop Eval I Sum Postop Eval Completion status Anesthesia document: Postop Eval 1 completed: Yes Anesthesia Postop Eval I Summary Anesthesia Postop Eval I Summary: Anesthesia Postop Eval I: Assessment Summary Airway patent Yes 10/16/23 13:56 [email or web address] Spontaneous unlabored Yes 10/16/23 13:56 LEGAL [email or web address] respirations Mental status Awake,Calm 10/16/23 13:56 [email or web address] nausea No 10/16/23 13:56 LEGAL [email or web address] Vomiting No 10/16/23 13:56 LEGAL [email or web address] Anesthesia Postop Eval I: Fluid Summary Crystalloid volume administer 400 10/16/23 13:56 LEGAL [email or web address] (ml) Colloids volume administered ( ml) Blood Product volume administered (ml) Total IV fluid infused 400 10/16/23 13:56 LEGAL [email or web address] Anesthesia Postop Eval I: Summary Notes Anesthesia Complication No 10/16/23 13:56 LEGAL [email or web address] Anesthesia Complication Comment: Post-operative progress note Anesthesia: Postop Eval II Evaluation Mental status: Awake and Calm Pain Level: 0 nausea: No Vomiting: No Complications Anesthesia Complication: No
--- NOTE | 2023-10-17 07:35 | PCM.POSTANE2 ---
Anesthesia Postop Eval I Sum Postop Eval Completion status Anesthesia document: Postop Eval 1 completed: Yes Anesthesia Postop Eval I Summary Anesthesia Postop Eval I Summary: Anesthesia Postop Eval I: Assessment Summary Airway patent Yes 10/16/23 13:56 EDGE [email or web address] Spontaneous unlabored Yes 10/16/23 13:56 EDGE BANDER [email or web address] respirations Mental status Awake,Calm 10/16/23 13:56 EDGE [email or web address] nausea No 10/16/23 13:56 EDGE BANDER [email or web address] Vomiting No 10/16/23 13:56 EDGE [email or web address] Anesthesia Postop Eval I: Fluid Summary Crystalloid volume administer 400 10/16/23 13:56 EDGE BANDER HAND.[email or web address] (ml) Colloids volume administered ( ml) Blood Product volume administered (ml) Total IV fluid infused 400 10/16/23 13:56 EDGE BANDER [email or web address] Anesthesia Postop Eval I: Summary Notes Anesthesia Complication No 10/16/23 13:56 EDGE BANDER [email or web address] Anesthesia Complication Comment: Post-operative progress note Anesthesia: Postop Eval II Evaluation Mental status: Awake and Calm Pain Level: 0 nausea: No Vomiting: No Complications Anesthesia Complication: No
[2023-10-17 07:52] VITALS: O2SAT 96
[2023-10-17 08:45] VITALS: BP 109/66; PULSE 54; RESP 16; TEMP 36.8; O2SAT 98
--- NOTE | 2023-10-17 09:53 | DS.PCM_ITS ---
Providers Date of Admission: 10/15/23 Date of Discharge: 10/17/23 Primary Care Physician: Dr. Sergio Grover, DO Consultations 10/15/23 04:45 Consult: Gastroenterology Routine Consulting Provider: [facility] Reason for Consult: intractable n/v, h/o cyclic vomiting syndrome EMERGENT Consult: No MD Notified: Yes Date Notified: 10/15/23 Time Notified: 06:19 Method of Notification: Text Reason For Visit: INTRACTABLE NAUSEA/VOMITING Diagnosis Discharge Diagnosis (1) Intractable cyclical vomiting with nausea: Status: Acute Code(s): R11.15 - Cyclical vomiting syndrome unrelated to migraine (2) UTI (urinary tract infection): Status: Acute Code(s): N39.0 - Urinary tract infection, site not specified Plan #Intractable nausea and vomiting * Likely due to probable food poisoning from her recent meal at [employer], cyclical vomiting from marijuana and UTI * abdominal pain, nausea and vomiting have improved significantly today. * GI on board. For EGD today. * counseled to quit using marijuana also. * currently NPO'; to start on clear liquids after she has the EGD * on reglan and compazine. Continue hydrating with iVF * now passing gas. #Probable UTI: As above. wbc down to 7.8. uriine culture is pending. #Elevated creatinine: resolved. Cr is down to 0.93 today #Hypokalemia: potassium remains 3.4. Will replace and trend. #Marijuana dependence: Patient counseled to quit as it may be contributing to her recurrent nausea and vomiting. #DVT prophylaxis: Low risk. Encourage ambulation Medications at Discharge Home Medications cefdinir 300 mg capsule 300 mg PO BID #6 caps 10/17/23 metoclopramide HCl 5 mg tablet 5 mg PO .qid 2 weeks #56 tabs 10/17/23 pantoprazole 40 mg tablet,delayed release 40 mg PO BID #60 tabs 10/17/23 Hospital Course Operations None Procedures EGD Summary of Care Provided Minutes Spent on Discharge: 45 Hospital Course: Patient is a 38 y/o female with a PMH as outlined who was admitted on 10/15/2023 with a complaint of intractable nausea and vomiting. She had a history of cyclical vomiting due to marijuana use and had seen gastroenterology previously. She was last seen on admission in April 2022 for similar complaints. She said she had eaten [employer] with a friend a few days prior to admission. Both she and the friend had started having abdominal pain and nausea and vomiting. However- symptoms subsequently resolved but has persisted so she came into the ED. She continues to use marijuana and says she now uses it about 2-[address] of the abdomen and pelvis done showed diffuse fecal retention but no evidence of intestinal obstruction or ileus. She had initially come to the ED on 10/12/2023 for the symptoms and ultimately CT was done but his symptoms persisted she came back to the ED on 10/14/2023. She was again discharged home but came back again on 10/15/2023 with the same symptoms. She was admitted and managed for intractable nausea and vomiting. It was thought to be due to marijuana use as well as possible food poisoning. Urinalysis also showed evidence of UTI so she was started on IV ceftriaxone. She was kept n.p.o. and hydrated with IV fluids. Gastroenterology was consulted. Patient had EGD on 10/16/2023 which showed nonbleeding ulcers and esophagitis. She was placed on pantoprazole. She was able to tolerate a diet and did well. She remained stable and was discharged home on 10/17/2023. 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 She was discharged on PO cefdinir 300mg bid x 3 days to complete a five day course. Patient seen and examined prior to discharge. She had no active complaints and had an uneventful night. Review of systems otherwise negative. Labs and vitals reviewed. Home meds reviewed and reconciled. Physical Exam Const alert, oriented x3, no apparent distress and average body habitus General Appearance: cooperative and comfortable Orientation / Consciousness: awake HEENT normocephalic, head/scalp atraumatic, hearing grossly normal bilaterally, nasal mucous membranes and turbinates normal, moist oral mucous membranes and oropharynx normal Mouth: oral and palatal mucosa normal Eyes PERRL, EOMs intact bilaterally and conjunctivae normal Neck full ROM, no lymphadenopathy, supple and no JVD Lymph Lymphatic: no lymphadenopathy noted and no lymphedema noted Chest inspection of chest normal Resp normal respiratory effort, normal air movement, no retractions, no use of accessory muscles and clear to auscultation bilaterally Cardio regular rate, regular rhythm, S1 normal heart sound, S2 normal heart sound, no murmurs and peripheral pulses 2+ throughout GI normal to inspection, nondistended, normoactive bowel sounds, soft to palpation, non-tender and non-distended GI Narrative: mild generalised tenderness, no guarding or rebound tenderness. Back/Spine normal ROM Extremity normal to inspection, full ROM, normal capillary refill, no clubbing, cyanosis or edema, no calf tenderness and no pedal edema General Extremity: no tenderness to palpation of joints or extremities Skin no rashes or lesions noted General Skin Exam: no breakdown Neuro oriented x3, CN's II-XII intact bilaterally, moves all extremities, no focal motor deficits, no sensory deficits noted and deep tendon reflexes 2+ bilaterally Speech: speech normal Motor Exam: strength 5/5 throughout and general weakness Psych mental status grossly normal, thought process normal and cooperative Appearance: appropriate Mood & Affect: depressed Weight / BMI Weight Weight: 138 lb 10.732 oz Body Mass Index (BMI) 24.5 ABG / Lab / Microbiology Data 10/16/23 07:01 10/16/23 07:01 D/C Instructions Discharge Diet: Low fat / Low cholesterol Discharge Activity: Return to Normal Activity Weight Bearing Status: Weight bearing as tolerated Call your doctor if you observe: Fever of 101 or Higher, Shortness of breath, Dizziness, Swelling in the ankles and Chest pain Meaningful Use Info Meaningful Use Meaningful Use Diagnoses (Choose all that apply): None applicable Ischemic Stroke Statin Dosing Therapy Reference: STATIN DOSE THERAPY REFERENCE: * Patients > 75 years receive moderate or high dose statin therapy. * Patients 75 years or YOUNGER should receive HIGH intensity statin dose unless contraindicated. You will be required to document reason for non-treatment if statin daily dose does not meet guidelines. HIGH DOSE STATIN THERAPY DAILY Atorvastatin > than or = to 40 mg Rosuvastatin > than or = to 20 mg Amlodipine + Atorvastatin > than or = to 2.5/40 mg Ezetimibe + Simvastatin 10/80 mg Simvastatin 80mg Discharge Plan Admission Admit Date/Time: 10/15/23 04:13 Primary Reason for Your Visit: intractable nausea and vomiting Attending Provider: Tegan Dickson Primary Care Provider: Sergio Grover Consulting Providers: Judah Saxena Instructions Patient Instructions: ED Vomiting (Adult) Additional Instructions / Restrictions: counseled to quit using marijuana Discharge Orders/Prescriptions Prescriptions: New pantoprazole 40 mg tablet,delayed release (DR/EC) 40 mg PO BID Qty: 60 1RF metoclopramide HCl 5 mg tablet 5 mg PO .qid 14 Days Qty: 56 0RF cefdinir 300 mg capsule 300 mg PO BID Qty: 6 0RF Discontinued metoclopramide HCl [Reglan] 10 mg tablet 10 mg PO Q6H PRN (Reason: nausea and vomiting) Qty: 10 0RF Referrals / Follow Up: Sergio Grover DO [Primary Care Provider] - Within 2 Weeks Florentin Levy DO [Med Staff - Active Staff] - Within 2 Weeks Disposition Disposition (needs filled in before D/C Order can be placed): Home, Self Care Charges/Coding Visit Charges Inpatient E&M: 70025 Disch Hosp >30min
[2023-10-17] MEDS: Ceftriaxone 1 GM/50 ML BAG IV (10:08)
--- NOTE | 2023-10-17 11:35 | PHA.DC.MC.R ---
Pharmacy [facility] has performed discharge medication reconciliation and counseling for this patient. The patient's discharge medication list was reviewed for discrepancies and discrepancies were resolved. The patient was counseled on the following discharge medications and changes in medications for homegoing were reviewed. 1. PROTONIX 2. CEFDINIR 3. REGLAN --> DOSE CHANGE The Reason for Use, instructions for use, and potential side effects were reviewed for all new medications. The patient's questions regarding all of their medications were answered. The patient was able to verbally demonstrate an understanding of their discharge medications. The patient was counselled by Hunter Cummins PharmD Candidate Medications at Discharge Home Medications cefdinir 300 mg capsule 300 mg PO BID #6 caps 10/17/23 metoclopramide HCl 5 mg tablet 5 mg PO .qid 2 weeks #56 tabs 10/17/23 pantoprazole 40 mg tablet,delayed release 40 mg PO BID #60 tabs 10/17/23
== END 2023-10-17 12:03 | disposition home or self-care (01) ==
LOC: ED 04:07 → MS3 04:33
PROVIDERS: Internal Medicine Gastroenterology; Admitting Provider Hospitalist; Emergency Provider Emergency Medicine; PCP Student in an Organized Health Care Education/Training Program; Visit Provider Student in an Organized Health Care Education/Training Program
PROC: 0DJ08ZZ Inspection of Upper Intestinal Tract, Via Natural or Artificial Opening Endoscopic (ICD-10-PCS; CPT 43235; principal; 2023-10-16 13:10)
DX: R11.15 Cyclical vomiting syndrome unrelated to migraine (principal); F12.20 Cannabis dependence, uncomplicated; N39.0 Urinary tract infection, site not specified; K26.9 Duodenal ulcer, unspecified as acute or chronic, without hemorrhage or perforation; Z86.16 Personal history of COVID-19; E87.6 Hypokalemia; E86.0 Dehydration; K29.70 Gastritis, unspecified, without bleeding; Z87.891 Personal history of nicotine dependence; K20.80 Other esophagitis without bleeding; R79.89 Other specified abnormal findings of blood chemistry
CPT/HCPCS: 43239; 36415; 80048; 80053; 81001; 81025; 83690; 83735; 84703; 85025; 85027; 87086; 88305; 93005; 96361; 96365; 96366; 96367; 96375; 96376; 99221; 99284; J7030; J7050; A4216; G0378; J2405

== ENCOUNTER → 2023-11-18 | Outpatient (CLI) | payer MEDICAID, SELFPAY ==
[2023-11-18 15:55] LABS: Absolute Lymphocyte Count 3.52 X10^3/uL (0.83-4.51); Absolute Neutrophil Count 3.5 X10^3/uL (2.0-7.7); Basophil# 0.02 X10^3/uL; Basophil% 0.3 % (0-1); Eosinophil# 0.14 X10^3/uL; Eosinophils% 1.8 % (0-5); Hematocrit 36.4 % (37-47); Hemoglobin 11.7 g/dL (12.0-15.0); Lymphocyte # 3.52 X10^3/ul (0.83-4.51); Lymphocyte % 46.2 % (19-41); Mean Corp Hgb Conc 32.1 g/dL (32-36); Mean Corpuscular Volume 87.1 fL (81-99); Mean Platelet Vol. 10.7 fl (6.2-12.0); Monocyte# 0.39 X10^3/uL; Monocyte% 5.1 % (0-10); NRBC Flagged by Analyzer 0 % (0-5); Neutrophil # 3.54 X10^3/uL (2.7-7.7); Neutrophil % 46.5 % (47-70); Platelet Count 202 K/mm3 (150-450); RBC Distribution Width CV 12.4 % (11.6-14.6); RBC Distribution Width SD 39.8 fl (35.1-43.9); Red Blood Count 4.18 M/mm3 (4.2-5.4); White Blood Count 7.6 K/mm3 (4.4-11.0)
[2023-11-18 16:10] LABS: Erythrocyte Sedimentation Rate 2 mm/hr (0-30)
[2023-11-18 16:18] LABS: Vitamin B12 249 pg/mL (211-911)
[2023-11-18 16:33] LABS: ALB/GLOB Ratio 1.1 RATIO (0.9-2.4); AST(SGOT) 13 U/L (15-37); Alanine Aminotransfer ALT/SGPT 18 U/L (13-56); Albumin, Serum 3.9 g/dL (3.2-5.0); Alkaline Phosphatase 63 U/L (45-117); Anion Gap 5 (5-15); BUN 7 mg/dL (7-18); BUN/Creat Ratio 8.1 RATIO (10-20); CRP < 2.90 mg/L (0.0-3.0); Chloride 110 mmol/L (98-107); Creatinine, Serum 0.86 mg/dL (0.55-1.02); EST Glomerular Filtration Rate 79 mL/min (>60); Est Glom Filt Rate - Afr Amer 95 mL/min (>60); Globulin 3.5 g/dL (2.2-4.2); Glucose 87 mg/dL (74-106); Iron 117 ug/dL (50-170); Iron Binding Capacity,Total 361 ug/dL (250-450); LDH 167 U/L (84-246); Potassium 3.6 mmol/L (3.5-5.1); Protein, Total 7.4 g/dL (6.4-8.2); Sodium Level 139 mmol/L (136-145)
[2023-11-22 00:07] LABS: Pancreatic Elastase, Fecal > 800 (>200)
[2023-11-22 07:09] LABS: Calprotectin, Stool <5 ug/g (0-120)
[2023-11-25 15:07] LABS: ACCA 14 units (0-90); ALCA 6 units (0-60); AMCA 43 units (0-100); Alpha-1-Globulins 0.2 g/dL (0.0-0.4); Alpha-2-Globulins 0.6 g/dL (0.4-1.0); Angiotensin Convert Enzyme 55 U/L (14-82); Anti-Smooth Muscle ABS 9 Units (0-19); Ceruloplasmin 24.7 mg/dL (19.0-39.0); Copper, Serum or Plasma 97 ug/dL (80-158); Cytoplasmic Ab (C-ANCA) <1:20 titer (Neg:<1:20); Endomysial Antibody IgA Negative (Negative); Gamma Globulin 1.1 g/dL (0.4-1.8); Immunoglobulin A 59 mg/dL (87-352); Immunoglobulin G 1208 mg/dL (586-1602); Immunoglobulin M 90 mg/dL (26-217); PROEL- TOTAL PROTEIN 6.9 g/dL (6.0-8.5); Perinuclear Ab (P-ANCA) <1:20 titer (Neg:<1:20); gASCA 8 units (0-50); t-Transglutaminase IgA <2 U/mL (0-3)
[2023-11-26 07:08] LABS: Anti-Mitochondrial AB <20.0 Units (0.0-20.0); Beef <0.10 kU/L (Class 0); Chocolate <0.10 kU/L (Class 0); Codfish <0.10 kU/L (Class 0); Corn <0.10 kU/L (Class 0); Egg, Whole <0.10 kU/L (Class 0); Milk (Cow) <0.10 kU/L (Class 0); Mussels <0.10 kU/L (Class 0); Peanut <0.10 kU/L (Class 0); Pork <0.10 kU/L (Class 0); Shrimp <0.10 kU/L (Class 0); Soybean <0.10 kU/L (Class 0); Tuna <0.10 kU/L (Class 0); Wheat <0.10 kU/L (Class 0)
== END | disposition home or self-care (01) ==
LOC: LAB 16:44 → LABSPEC 16:45
PROVIDERS: PCP Student in an Organized Health Care Education/Training Program; Referring Provider Student in an Organized Health Care Education/Training Program; Visit Provider Student in an Organized Health Care Education/Training Program
DX: K90.0 Celiac disease (principal); K58.9 Irritable bowel syndrome, unspecified
CPT/HCPCS: 87329; 87506; 36415; 80053; 82164; 82306; 82390; 82525; 82607; 82653; 82746; 82784; 83516; 83540; 83550; 83615; 83630; 83993; 84165; 85025; 85652; 86003; 86005; 86036; 86140; 86255; 86256; 86334; 86671; 87177; 87209; 87493

== ENCOUNTER 2024-02-23 08:46 | Outpatient (RCR) | payer MEDICAID, SELFPAY | END 2024-03-23 23:59 | LOC: NS 08:46 | PROVIDERS: PCP Student in an Organized Health Care Education/Training Program; Referring Provider Student in an Organized Health Care Education/Training Program; Visit Provider Student in an Organized Health Care Education/Training Program | DX: Z71.3 Dietary counseling and surveillance (principal); K90.0 Celiac disease | CPT/HCPCS: 97802 ==

== ENCOUNTER 2024-04-06 07:54 | Emergency (ER) | payer MEDICAID, SELFPAY ==
[2024-04-06 07:54] VITALS: BP 128/99; PULSE 79; RESP 18; TEMP 36.6; O2SAT 99
[2024-04-06 08:19] VITALS: BP 126/107; PULSE 81; RESP 16; O2SAT 98
--- NOTE | 2024-04-06 08:24 | EX.ED.DYSGE1 ---
HPI History of Present Illness Chief Complaint: Nausea/Vomiting/Diarrhea Informant: patient Onset/Context/Timing Onset: Yesterday Context: Gradual Onset Timing: Continuous Quality: Dull, sharp Location: Chest and abdomen Worsened by: Nothing Relieved by: Nothing Narrative Narrative: Patient presents with nausea, vomiting, diarrhea, abdominal pain, and chest pain that began yesterday. Patient states her son was recently diagnosed with influenza. Patient states that she started having some of the same symptoms yesterday. Patient states she is unable to keep anything down today. Patient states she has some pain in her chest. Patient describes it as dull and sharp. Patient states nothing makes her symptoms better nothing makes them worse. Patient denies any hematemesis or coffee-ground emesis. Patient denies any melena or hematochezia. Patient admits to some subjective chills but denies any fevers. Patient admits to general myalgias and back pain. PFSH PFS Medical History UTI (urinary tract infection) Intractable cyclical vomiting with nausea Mild dehydration Marijuana use Anxiety Depression Pancreatitis Leukocytosis Former tobacco use Marijuana smoker, episodic Cyclic vomiting syndrome COVID-19 Esophageal reflux Home Medications ?Medication ?Instructions ?Recorded ?Last Taken ?Type metoclopramide HCl 5 mg tablet 5 mg PO .qid 2 weeks #56 tabs 10/17/23 Unknown Rx pantoprazole 40 mg tablet,delayed 40 mg PO BID #60 tabs 10/17/23 Unknown Rx release ondansetron 4 mg disintegrating 4 mg PO Q8H PRN PRN Nausea #10 tabs 04/06/24 Unknown Rx tablet Allergy/AdvReac Type Severity Reaction Status Date / Time Fish Containing Products Allergy Swelling Verified 04/06/24 07:55 haloperidol (From Haldol) AdvReac Other Verified 04/06/24 07:55 Family History Mother Hypertension Hyperlipidemia Father Hypertension Hyperlipidemia Surgical History History of cholecystectomy Status post cholecystectomy Social History household members: significant other Smoking Status: Former smoker how long ago did patient quit smoking: Quit 15 years prior to current presentation. alcohol intake: never substance use type: marijuana ROS ROS ED Constitutional Constitutional ED: Reports chills and subjective; Denies fever(s) Eyes Eyes: Denies blurry vision or change in vision ENT ENT ED: Denies rhinorrhea or sore throat Cardiovascular Cardiovascular: Reports chest pain; Denies palpitations Respiratory/Chest Respiratory/Chest: Reports cough; Denies dyspnea Gastrointestinal Gastrointestinal: Reports abdominal pain, diarrhea, nausea and vomiting Genitourinary Genitourinary ED: Denies dysuria or hematuria Musculoskeletal Musculoskeletal: Reports back pain; Denies neck pain Integumentary Denies abscess or rash Neurologic Neurologic: Reports headache(s); Denies weakness Allergic/Immunologic Allergic/Immunologic ED: Denies mouth swelling or urticaria EXAM Physical Exam Const Vital Signs: 04/06/24 07:54 04/06/24 08:19 04/06/24 10:00 Temperature 98 F 98.9 F Temperature Source Oral Oral Pulse Rate 79 81 68 Respiratory Rate 18 16 18 Blood Pressure 128/99 H 126/107 H 138/76 H Blood Pressure Mean 108 113 96 Pulse Ox 99 98 98 Oxygen Delivery Method Room Air Room Air Positive well nourished and well developed General Appearance ED: well developed and NAD HEENT Reports moist mucous membranes Neck supple and no JVD Resp normal respiratory effort and clear to auscultation bilaterally Cardio regular rate and regular rhythm GI non-distended Palpation: soft and tender epigastric, LLQ, RLQ, LUQ, RUQ, periumbilical and suprapubic; Negative for guarding or rebound tenderness present Extremity normal to inspection General Extremety ED: Negative for edema or tenderness General Extremity: Negative for edema Neuro oriented x3, CN's II-XII intact bilaterally and no sensory deficits noted Sensorium / Orientation: alert Motor Exam: strength 5/5 throughout Psych mental status grossly normal MDM MDM MDM Narrative Medical decision making narrative: Differential diagnosis includes viral illness, gastroenteritis, urinary tract infection, , pancreatitis, gastritis, electrolyte abnormality, and dehydration. CBC will be obtained to assess for leukocytosis and anemia. Comprehensive metabolic profile will be obtained to assess for electrolyte abnormality, renal function, and hepatic function. Lipase will be obtained to assess for pancreatitis. Urinalysis will be obtained to assess for urinary tract infection and hematuria. Serum hCG will be obtained to assess for . COVID-19, influenza, and RSV PCR will be obtained to assess for viral illness. Lab Data Attestation: I reviewed the patient's lab results. Lab results narrative: CBC was reviewed and was within normal limits. Comprehensive metabolic profile was reviewed and was essentially within normal limits except for slightly elevated glucose of 165. Lipase was reviewed and was normal. Serum hCG was reviewed and was negative. Urinalysis was reviewed. Urine glucose was 1000. There is no evidence of urinary tract infection or hematuria. COVID-19 PCR was reviewed and was negative. Influenza PCR was reviewed and was positive for influenza A but was negative for influenza B. RSV PCR was reviewed and was negative. Labs: Laboratory Results - last 24 hr 04/06/24 04/06/24 04/06/24 08:39 09:08 09:10 WBC 9.7 RBC 4.39 Hgb 12.5 Hct 37.6 MCV 85.6 MCH 28.5 MCHC 33.2 RDW Std Deviation 39.3 RDW Coeff of Fabian 12.5 Plt Count 244 MPV 8.9 Immature Gran % (Auto) 0.400 Neut % (Auto) 91.7 H Lymph % (Auto) 3.3 L Atkinson % (Auto) 4.4 Eos % (Auto) 0.0 Baso % (Auto) 0.2 Absolute Neuts (auto) 8.9 H Absolute Lymphs (auto) 0.32 L Nucleated RBC % 0 Sodium Cancelled 136 Potassium Cancelled 4.4 Chloride Cancelled 106 Carbon Dioxide Cancelled 21.0 Anion Gap Cancelled 9 BUN Cancelled 8 Creatinine Cancelled 1.05 H Estim Creat Clear Calc Cancelled Est GFR (MDRD) Af Amer Cancelled 76 Est GFR (MDRD) Non-Af Cancelled 63 BUN/Creatinine Ratio Cancelled 7.6 L Glucose Cancelled 165 H Calcium Cancelled 9.5 Total Bilirubin Cancelled 0.40 AST Cancelled 38 H ALT Cancelled 35 Alkaline Phosphatase Cancelled 66 Total Protein Cancelled 8.0 Albumin Cancelled 4.3 Globulin Cancelled 3.7 Albumin/Globulin Ratio Cancelled 1.2 Lipase Cancelled 17 Serum , Qual Cancelled NEGATIVE Urine Color Yellow Urine Clarity Sl. Cloudy Urine pH 7.0 Ur Specific [place] 1.010 Urine Protein 30 H Urine Glucose (UA) 1000 H Urine Ketones 5 H Urine Occult Blood 250 H Urine Nitrite Negative Urine Bilirubin Negative Urine Urobilinogen Normal Ur Leukocyte Esterase Negative Urine RBC 5-10 SEEN Urine WBC 0 SEEN Ur Squamous Epith Cells 5-10 SEEN Urine Bacteria 2+ Urine Mucus 1+ Treatment and Re-Evaluation :: Patient was given IV fluids and Zofran. Patient was feeling better on reevaluation. Patient was advised of her findings. Patient was instructed to drink plenty of fluids. Patient was instructed to take Tylenol or ibuprofen as needed for any pain or fevers. Patient was given a prescription for Zofran. Patient was instructed to follow-up with her primary care physician in 5 to 7 days. Patient was instructed to return if worse in any way. Patient understood and was agreeable with the plan. All questions were answered. Discharge Plan Triage Chief Complaint: Nausea/Vomiting/Diarrhea ED Provider: Damaso Tavares Dx/Rx/DC Orders Clinical Impression: Influenza A, Nausea vomiting and diarrhea Instructions: ED Influenza (Adult) Prescriptions: New ondansetron 4 mg tablet,disintegrating 4 mg PO Q8H PRN PRN (Reason: Nausea) Qty: 10 0RF No Action pantoprazole 40 mg tablet,delayed release (DR/EC) 40 mg PO BID Qty: 60 1RF metoclopramide HCl 5 mg tablet 5 mg PO .qid 14 Days Qty: 56 0RF Primary Care Provider: Sergio Grover Referrals: Sergio Grover DO [Primary Care Provider] - 5-7 Days Print Language: Greenlandic Disposition Disposition: Home, Self Care
[2024-04-06] MEDS: 0.9% Normal Saline (1000mL) 1,000 ML 999 ML IV (08:44)
[2024-04-06] MEDS: Ondansetron 4 MG/2 ML Vial IV (08:44)
[2024-04-06 08:59] LABS: Absolute Lymphocyte Count 0.32 X10^3/uL (0.83-4.51); Absolute Neutrophil Count 8.9 X10^3/uL (2.0-7.7); Basophil# 0.02 X10^3/uL; Basophil% 0.2 % (0-1); Hematocrit 37.6 % (37-47); Hemoglobin 12.5 g/dL (12.0-15.0); Lymphocyte # 0.32 X10^3/ul (0.83-4.51); Lymphocyte % 3.3 % (19-41); Mean Corp Hgb Conc 33.2 g/dL (32-36); Mean Corpuscular Hgb 28.5 pg (27.0-32.0); Mean Corpuscular Volume 85.6 fL (81-99); Mean Platelet Vol. 8.9 fl (6.2-12.0); Monocyte# 0.43 X10^3/uL; Monocyte% 4.4 % (0-10); NRBC Flagged by Analyzer 0 % (0-5); Neutrophil # 8.87 X10^3/uL (2.7-7.7); Neutrophil % 91.7 % (47-70); POSITIVE DIFFERENTIAL YES; Platelet Count 244 K/mm3 (150-450); RBC Distribution Width CV 12.5 % (11.6-14.6); RBC Distribution Width SD 39.3 fl (35.1-43.9); Red Blood Count 4.39 M/mm3 (4.2-5.4); White Blood Count 9.7 K/mm3 (4.4-11.0)
[2024-04-06 09:14] LABS: White Blood Cells 0 SEEN /hpf (0-5)
[2024-04-06 09:22] LABS: Color, Urine Yellow (Yellow); Glucose, Dipstick 1000 mg/dl (Normal); Ketone-Dipstick 5 mg/dl (Negative); Leukocyte Esterase-Dipstick Negative /ul (Negative); Nitrite-Dipstick Negative (Negative); Occult Blood-Urine 250 /ul (Negative); Protein-Dipstick 30 mg/dl (Negative); Urine Bilirubin Dipstick Negative (Negative); Urine Clarity Sl. Cloudy (Clear); Urine Urobilinogen Normal (Normal)
--- NOTE | 2024-04-06 09:27 | ED.RN ---
PT. SCREAMING IN ROOM. THIS NURSE TO ROOM. EXPLAINS TO PT. THAT IF SHE NEEDS SOMETHING TO USE CALL LIGHT. STATES HER STOMACH IS CRAMPING.
[2024-04-06 09:30] LABS: Red Blood Cells-Urine 5-10 SEEN /hpf (0-5)
[2024-04-06 09:31] LABS: Bacteria 2+ /hpf (None Seen); Mucous, Urine 1+ /hpf (<or=2+); Squamous Epithelial Cells - UA 5-10 SEEN /hpf (5-10)
[2024-04-06 09:31] LABS: Internal QC Validated? YES +Cl - CLEAR BKGD; Pregnancy, Serum, hCG Quali. NEGATIVE Negative
[2024-04-06 09:40] LABS: ALB/GLOB Ratio 1.2 RATIO (0.9-2.4); AST(SGOT) 38 U/L (15-37); Alanine Aminotransfer ALT/SGPT 35 U/L (13-56); Albumin, Serum 4.3 g/dL (3.2-5.0); Alkaline Phosphatase 66 U/L (45-117); Anion Gap 9 (5-15); BUN 8 mg/dL (7-18); BUN/Creat Ratio 7.6 RATIO (10-20); Calcium,Total 9.5 mg/dL (8.5-10.1); Chloride 106 mmol/L (98-107); Creatinine, Serum 1.05 mg/dL (0.55-1.02); EST Glomerular Filtration Rate 63 mL/min (>60); Est Glom Filt Rate - Afr Amer 76 mL/min (>60); Globulin 3.7 g/dL (2.2-4.2); Glucose 165 mg/dL (74-106); Lipase 17 U/L (13-75); Potassium 4.4 mmol/L (3.5-5.1); Sodium Level 136 mmol/L (136-145)
[2024-04-06] MEDS: Dicyclomine 20 MG/2 ML Vial IM (09:46)
[2024-04-06 10:00] VITALS: BP 138/76; PULSE 68; RESP 18; TEMP 37.2; O2SAT 98
== END 2024-04-06 11:58 | disposition home or self-care (01) ==
PROVIDERS: Emergency Provider Emergency Medicine; PCP Student in an Organized Health Care Education/Training Program; Visit Provider Emergency Medicine
DX: J10.1 Influenza due to other identified influenza virus with other respiratory manifestations (principal); R11.2 Nausea with vomiting, unspecified; Z87.891 Personal history of nicotine dependence; R19.7 Diarrhea, unspecified; K21.9 Gastro-esophageal reflux disease without esophagitis; R51.9 Headache, unspecified
CPT/HCPCS: 80053; 81001; 83690; 84703; 85025; 87631; 96361; 96372; 96374; 99283; A4216; J2405

== ENCOUNTER 2024-04-10 13:30 | Emergency (ER) | payer MEDICAID, SELFPAY ==
[2024-04-10 13:30] VITALS: BP 122/92; PULSE 115; RESP 18; TEMP 36.4; O2SAT 95; BMI 24.3
--- NOTE | 2024-04-10 14:23 | EDS_ITS ---
HPI History of Present Illness Chief Complaint: Nausea/Vomiting/Diarrhea Narrative Narrative: Patient is a 38-year-old female with history of acute on chronic abdominal pain, intractable vomiting, celiac disease who presents to the [facility] for nausea and vomiting. Patient was seen here a couple days ago, diagnosed with influenza A. Patient states since this time, she has been having nausea vomiting diarrhea. Patient states that the pain is severe, and she is unable to take any water or her pills. Here for evaluation [facility] Medical History UTI (urinary tract infection) Intractable cyclical vomiting with nausea Mild dehydration Marijuana use Anxiety Depression Pancreatitis Leukocytosis Former tobacco use Marijuana smoker, episodic Cyclic vomiting syndrome COVID-19 Esophageal reflux Home Medications ?Medication ?Instructions ?Recorded ?Last Taken ?Type metoclopramide HCl 5 mg tablet 5 mg PO .qid 2 weeks #56 tabs 10/17/23 Unknown Rx pantoprazole 40 mg tablet,delayed 40 mg PO BID #60 tabs 10/17/23 Unknown Rx release ondansetron 4 mg disintegrating 4 mg PO Q8H PRN PRN Nausea #10 tabs 04/06/24 Unknown Rx tablet ondansetron 4 mg disintegrating 4 mg PO Q8H PRN PRN Nausea #10 tabs 04/10/24 Unknown Rx tablet Allergy/AdvReac Type Severity Reaction Status Date / Time Fish Containing Products Allergy Swelling Verified 04/10/24 13:30 haloperidol (From Haldol) AdvReac Other Verified 04/10/24 13:30 Family History Mother Hypertension Hyperlipidemia Father Hypertension Hyperlipidemia Surgical History History of cholecystectomy Status post cholecystectomy Social History household members: significant other Smoking Status: Current every day smoker tobacco type: cigarettes how long ago did patient quit smoking: Quit 15 years prior to current presentation. alcohol intake: never substance use type: marijuana ROS ROS ED ROS Narrative Constitutional: Negative for fever, chills, weight loss. Positive for weakness Eyes: Negative for vision loss, vision change, double vision ENT: Negative for any sore throat, ear pain, congestion Cardiovascular: Negative for any chest pain, tightness, palpitations Respiratory: Negative for any cough, sputum production, hemoptysis, dyspnea, dyspnea on exertion, orthopnea Gastrointestinal: Negative for any constipation, blood in stool, blood in vomit. Positive for abdominal pain, nausea vomiting diarrhea : Negative for any urinary frequency, dysuria, retention, blood in urine Muscle skeletal: Negative for any neck pain, back pain Neurological: Negative for any headache, syncope, dizziness Skin: Negative for any rashes, itching, abrasions, lacerations Psychiatric: Negative for any depression, anxiety, stress, suicidal ideation, homicidal ideation Hematologic: Negative for any excessive bruising, easy bleeding EXAM Physical Exam Narrative Exam Narrative: Vital signs reviewed. HEET: Head normocephalic atraumatic, TMs clear bilaterally. Posterior pharynx is clear, moist mucous membranes. Nares clear bilaterally. Neck: Supple with no lymphadenopathy or tenderness. No signs of meningismus. Cardiac: Regular rate and rhythm no murmurs gallops or rubs, equal peripheral pulses bilaterally. Respiratory: Lungs clear to auscultation bilaterally. No chest tenderness. Abdomen: Soft, nondistended. No abdominal bruit or pulsatile masses. No h epatosplenomegaly. Patient has tenderness throughout the entire abdominal exam. There is no localization. No peritoneal signs. Extremities: No peripheral edema, no signs of gross trauma or deformity. Active full range of motion of all extremities. Neuro: Cranial nerves II through XII intact, no focal neurological deficits. Skin: Clean dry and intact with no rash, purpura, petechiae, vesicles or pustules. Backs/flank: No CVA tenderness, no midline spinal tenderness, no deformity. Psych: Normal mood and affect. No SI, HI or acute psychosis. Const Vital Signs: 04/10/24 13:30 04/10/24 15:28 04/10/24 17:00 Temperature 97.6 F L Temperature Source Oral Pulse Rate 115 H 71 82 Respiratory Rate 18 18 18 Blood Pressure 122/92 H Blood Pressure Mean 102 Pulse Ox 95 98 98 Oxygen Delivery Method Room Air Room Air [facility] Lab Data Labs: Laboratory Results - last 24 hr 04/10/24 14:20 WBC 6.6 RBC 5.61 H Hgb 15.9 H Hct 47.1 H MCV 84.0 MCH 28.3 MCHC 33.8 RDW Std Deviation 37.4 RDW Coeff of Fabian 12.4 Plt Count 223 MPV 9.0 Neut % (Auto) Not Reportable Absolute Neuts (auto) 3.9 Absolute Lymphs (auto) 2.56 Total Counted 100 Neutrophils % (Manual) 59 Band Neutrophils % 1 Lymphocytes % (Manual) 39 Monocytes % (Manual) 1 Platelet Estimate ADEQUATE RBC Morphology NORM C+C Sodium 135 L Potassium 4.1 Chloride 99 Carbon Dioxide 28.0 Anion Gap 8 BUN 22 H Creatinine 1.23 H Estim Creat Clear Calc 51.80 Est GFR (MDRD) Af Amer 63 Est GFR (MDRD) Non-Af 52 L BUN/Creatinine Ratio 17.9 Glucose 129 H Calcium 9.2 Total Bilirubin 0.40 AST 52 H ALT 58 H Alkaline Phosphatase 79 Total Protein 8.3 H Albumin 3.8 Globulin 4.5 H Albumin/Globulin Ratio 0.8 L Lipase 17 Radiography Diagnostic Testing: Clinical Impression(s) from Imaging Studies Abdomen/Pelvis CT 04/10/24 15:55 IMPRESSION: 1. No masses or bowel obstruction. 2. Large bowel is decompressed with negligible luminal contents, additional mild edema within the wall, and fluid-filled small bowel segments are present. Diffuse mild enteritis is a consideration however no masses or bowel obstruction. 3. No evidence of diverticulitis or appendicitis. 4. No renal calcification or obstructive uropathy. 5. Gallbladder is not visualized and may be surgically absent. No ductal dilatation. 6. RIGHT ovarian cyst measuring 2.8 x 2.9 cm. No free fluid. No required follow-up as per the included consensus guidance. Incidental Findings Reference Guidance And Recommendations: Ovarian cyst: MANAGEMENT OF OVARIAN CYSTS detected on CT or MRI in asymptomatic women: Premenopausal *Benign-appearing cyst --- <=5cm: No follow-up --- >5cm: Follow-up ultrasound in 6-12 weeks *Probably benign cyst --- <=3cm: No follow-up --- >3-5cm: Follow-up ultrasound in 6-12 weeks --- >5cm: Ultrasound Note: The recommendations are offered as general guidance and do not necessarily apply to all patients. Lauryn Grimes, et al. (2019). Simple adnexal cysts: [facility] consensus conference update on follow-up and reporting. Radiology, 293(2), 359?371. [email or web address] Electronically Signed: Juan Enciso MD at 18:09 EST , Treatment and Re-Evaluation :: Differential diagnosis includes however is not limited to: Sequelae of influenza A, dehydration, acute on chronic abdominal pain, electrode abnormality Patient appears generally well, vital signs are stable, patient is nontoxic- appearing. Presenting to the emergency department with complaints of nausea and vomiting, diarrhea after being diagnosed with influenza A. Patient was use of basic laboratory values, IV fluids, IV Reglan, Benadryl. Patient will need to be reevaluated. Patient's laboratory values, CBC patient CBC shows a leukocytosis, patient does look dry, hemoglobin is 15.9 with a hematocrit of 47.1 slightly elevated. Chemistry showed creatinine 1.23, SP to be baseline, patient is between 0.9-1.2. AST ALT slightly elevated, lipase was negative. Anion gap was 22, significant with dehydration. Patient secondary to ongoing pain to her abdomen showed no mass or bowel obstruction. There did seem to be some diffuse mild enteritis. At this time, on reevaluation, the patient was feeling much improved. Patient was able to pass p.o. challenge. She will given Zofran for home. All questions were answered, stable for discharge. Discharge Plan Triage Chief Complaint: Nausea/Vomiting/Diarrhea ED Midlevel Provider: Robel Villafuerte ED Provider: Kahlil Fernandez Dx/Rx/DC Orders Clinical Impression: History of influenza, Acute dehydration, Viral gastroenteritis Instructions: ED Dehydration (Adult), ED Diarrhea, Viral (Adult) Prescriptions: New ondansetron 4 mg tablet,disintegrating 4 mg PO Q8H PRN PRN (Reason: Nausea) Qty: 10 0RF No Action pantoprazole 40 mg tablet,delayed release (DR/EC) 40 mg PO BID Qty: 60 1RF metoclopramide HCl 5 mg tablet 5 mg PO .qid 14 Days Qty: 56 0RF ondansetron 4 mg tablet,disintegrating 4 mg PO Q8H PRN PRN (Reason: Nausea) Qty: 10 0RF Primary Care Provider: Sergio Grover Referrals: Sergio Grover DO [Primary Care Provider] - Activity Restrictions/Additional Instructions: Please follow-up outpatient. Advance her diet as tolerated. Print Language: Armenian Disposition Disposition: Home, Self Care
[2024-04-10 14:29] LABS: Hematocrit 47.1 % (37-47); Hemoglobin 15.9 g/dL (12.0-15.0); Mean Corp Hgb Conc 33.8 g/dL (32-36); Mean Corpuscular Hgb 28.3 pg (27.0-32.0); POSITIVE MORPHOLOGY YES; Platelet Count 223 K/mm3 (150-450); RBC Distribution Width CV 12.4 % (11.6-14.6); RBC Distribution Width SD 37.4 fl (35.1-43.9); Red Blood Count 5.61 M/mm3 (4.2-5.4); White Blood Count 6.6 K/mm3 (4.4-11.0)
[2024-04-10] MEDS: DiphenhydrAMINE 50 MG/ML Syringe 25 MG IV (14:45)
[2024-04-10] MEDS: 0.9% Normal Saline (1000mL) 1,000 ML 999 ML IV (14:45)
[2024-04-10] MEDS: Dicyclomine 20 MG/2 ML Vial IM (14:45)
[2024-04-10] MEDS: Metoclopramide 10 MG/2 ML Vial IV (14:46)
[2024-04-10 14:47] LABS: ALB/GLOB Ratio 0.8 RATIO (0.9-2.4); AST(SGOT) 52 U/L (15-37); Alanine Aminotransfer ALT/SGPT 58 U/L (13-56); Albumin, Serum 3.8 g/dL (3.2-5.0); Alkaline Phosphatase 79 U/L (45-117); Anion Gap 8 (5-15); BUN 22 mg/dL (7-18); BUN/Creat Ratio 17.9 RATIO (10-20); Calcium,Total 9.2 mg/dL (8.5-10.1); Chloride 99 mmol/L (98-107); Creatinine, Serum 1.23 mg/dL (0.55-1.02); Differential Indicated MANUAL DIFF; EST Glomerular Filtration Rate 52 mL/min (>60); Est Glom Filt Rate - Afr Amer 63 mL/min (>60); Globulin 4.5 g/dL (2.2-4.2); Glucose 129 mg/dL (74-106); Lipase 17 U/L (13-75); Potassium 4.1 mmol/L (3.5-5.1); Protein, Total 8.3 g/dL (6.4-8.2); Sodium Level 135 mmol/L (136-145)
[2024-04-10 14:49] LABS: Lymphocyte 39 % (19-41); Monocyte 1 % (0-10); Neutrophil-Band 1 % (0-5); Neutrophil-Segmented 59 % (47-70); Platelet Estimate ADEQUATE (ADEQ); Red Cell Morphology NORM C+C NORMAL (NORM C&C); Total Cells Counted 100 (MANUAL DIFF)
[2024-04-10 14:50] LABS: Absolute Lymphocyte Count 2.56 X10^3/uL (0.83-4.51); Absolute Neutrophil Count 3.9 X10^3/uL (2.0-7.7)
[2024-04-10 15:28] VITALS: PULSE 71; RESP 18; O2SAT 98
--- NOTE | 2024-04-10 15:55 | CT_ITS ---
INDICATION: abdominal pain EXAMINATION: CT ABDOMEN AND PELVIS with CONTRAST - CT Abdomen And Pelvis W/ Contrast Injection TECHNIQUE: Multiple axial images were obtained of the abdomen and pelvis following administration of IV contrast. Planar reconstructions obtained. A radiation dose optimization technique was used for this scan. RADIATION DOSAGE (If Supplied By Facility): CTDIvol = ( 18.36 ) mGy, DLP = ( 309.77 ) mGycm IV Contrast dosage and agent: None. Oral contrast: None. COMPARISON: 10/12/2023 FINDINGS: LOWER CHEST: 1. Lung bases are clear. 2. No cardiomegaly or pericardial effusion. 3. No significant coronary vascular calcifications. HEPATOBILIARY: Liver: The liver is homogeneous and shows no evidence of focal lesion. Gallbladder: Gallbladder is not visualized, and may be surgically absent. No ductal dilatation. Pancreas: Pancreas is normal size configuration and density. No mass is noted. Spleen: The spleen is homogeneous and normal in size. . BOWEL: Stomach: The stomach is normal in size configuration, no evidence of focal masses, abnormal calcifications. No hiatal hernia noted. Bowel: Small and large have normal configuration, no masses or bowel obstruction noted. The colon is decompressed with negligible luminal contents. Scattered fluid filled small bowel segments. No obstruction. Mild enteritis is a consideration. Appendix: Short segments of the normal appendix.: GENITOURINARY: Adrenals: Both adrenal glands are normal in size. Kidneys: Kidneys appear symmetric in size. No calcifications are seen in the collecting system. There is no hydronephrosis or surrounding fluid. Bladder: Normal Pelvic organs: Uterus has normal configuration, uterus is anteflexed. No uterine masses. There is a RIGHT ovarian cyst measuring 2.8 x 2.9 cm. No free fluid. RETROPERITONEUM: There is normal appearance of the abdominal aorta and inferior vena cava. LYMPH NODES: No evidence of retroperitoneal or para-aortic masses fluid collections or adenopathy. PERITONEAL CAVITY: No ascites noted ANTERIOR ABDOMINAL WALL: Normal, no hernia identified. BONES AND SOFT TISSUES: The skeleton shows no evidence for fractures or destructive lesions. OTHER: None CT/Abdomen/Pelvis W IV Cont ONLY IMPRESSION: 1. No masses or bowel obstruction. 2. Large bowel is decompressed with negligible luminal contents, additional mild edema within the wall, and fluid-filled small bowel segments are present. Diffuse mild enteritis is a consideration however no masses or bowel obstruction. 3. No evidence of diverticulitis or appendicitis. 4. No renal calcification or obstructive uropathy. 5. Gallbladder is not visualized and may be surgically absent. No ductal dilatation. 6. RIGHT ovarian cyst measuring 2.8 x 2.9 cm. No free fluid. No required follow-up as per the included consensus guidance. Incidental Findings Reference Guidance And Recommendations: Ovarian cyst: MANAGEMENT OF OVARIAN CYSTS detected on CT or MRI in asymptomatic women: Premenopausal *Benign-appearing cyst --- <=5cm: No follow-up --- >5cm: Follow-up ultrasound in 6-12 weeks *Probably benign cyst --- <=3cm: No follow-up --- >3-5cm: Follow-up ultrasound in 6-12 weeks --- >5cm: Ultrasound Note: The recommendations are offered as general guidance and do not necessarily apply to all patients. Klarissa Grimes., et al. (2019). Simple adnexal cysts: [facility] consensus conference update on follow-up and reporting. Radiology, 293(2), 359?371. [email or web address] Electronically Signed: Juan Enciso MD at 18:09 EST ,
[2024-04-10] MEDS: Morphine 4 MG/ML Syringe IV (15:58)
[2024-04-10] MEDS: Ondansetron 4 MG/2 ML Vial IV (15:58)
[2024-04-10 17:00] VITALS: PULSE 82; RESP 18; O2SAT 98
== END 2024-04-10 18:41 | disposition home or self-care (01) ==
PROVIDERS: Nurse Practitioner; Emergency Provider Emergency Medicine; PCP Student in an Organized Health Care Education/Training Program; Visit Provider Emergency Medicine
DX: A08.4 Viral intestinal infection, unspecified (principal); R11.2 Nausea with vomiting, unspecified; R19.7 Diarrhea, unspecified; F17.210 Nicotine dependence, cigarettes, uncomplicated; K21.9 Gastro-esophageal reflux disease without esophagitis; E86.0 Dehydration
CPT/HCPCS: 74177; 80053; 83690; 85025; 96361; 96372; 96374; 96375; 99283; Q9967; A4216; J2405

== ENCOUNTER 2024-04-11 17:25 | Emergency (ER) | payer MEDICAID, SELFPAY ==
[2024-04-11 17:26] VITALS: BP 124/97; PULSE 90; RESP 18; TEMP 36.5; O2SAT 99; BMI 24.6
--- NOTE | 2024-04-11 18:07 | EDS_ITS ---
HPI <ANATOLY Varma - Last Filed: 04/11/24 22:06> History of Present Illness Chief Complaint: Nausea/Vomiting Narrative Narrative: Patient presenting today due to nausea and vomiting she has had over the last several days. She initially was evaluated here 04/06/2024 for abdominal pain, nausea, vomiting, and diarrhea. She was diagnosed with influenza A. She was then seen again yesterday due to the same symptoms and had a workup done including a CT scan of her abdomen and pelvis. She was medicated with antiemetics and was eventually able to keep down fluids and was discharged home. She reports that she felt fine until this morning when she began vomiting again. She denies having diarrhea today, she has had no hematemesis, fevers, or chills. She does have a history of cyclic vomiting syndrome. She reports that she has not smoked marijuana in about a week but does regularly use. She follows with Dr. Levy. [facility] <ANATOLY Varma - Last Filed: 04/11/24 22:06> [facility] Medical History UTI (urinary tract infection) Intractable cyclical vomiting with nausea Mild dehydration Marijuana use Anxiety Depression Pancreatitis Leukocytosis Former tobacco use Marijuana smoker, episodic Cyclic vomiting syndrome COVID-19 Esophageal reflux Home Medications ?Medication ?Instructions ?Recorded ?Last Taken ?Type metoclopramide HCl 5 mg tablet 5 mg PO .qid 2 weeks #56 tabs 10/17/23 Unknown Rx pantoprazole 40 mg tablet,delayed 40 mg PO BID #60 tabs 10/17/23 Unknown Rx release ondansetron 4 mg disintegrating 4 mg PO Q8H PRN PRN Nausea #10 tabs 04/06/24 Unknown Rx tablet ondansetron 4 mg disintegrating 4 mg PO Q8H PRN PRN Nausea #10 tabs 04/10/24 Unknown Rx tablet promethazine 25 mg rectal 25 mg [place] Q6H PRN nausea and 04/11/24 Unknown Rx suppository vomiting #12 ea Allergy/AdvReac Type Severity Reaction Status Date / Time Fish Containing Products Allergy Swelling Verified 04/11/24 17:26 haloperidol (From Haldol) AdvReac Other Verified 04/11/24 17:26 Family History Mother Hypertension Hyperlipidemia Father Hypertension Hyperlipidemia Surgical History History of cholecystectomy Status post cholecystectomy Social History household members: significant other Smoking Status: Current every day smoker tobacco type: cigarettes how long ago did patient quit smoking: Quit 15 years prior to current presentation. alcohol intake: never substance use type: marijuana ROS <ANATOLY Varma - Last Filed: 04/11/24 22:06> ROS ED Constitutional Constitutional ED: Denies chills or fever(s) Cardiovascular Cardiovascular: Denies chest pain Respiratory/Chest Respiratory/Chest: Denies cough or dyspnea Gastrointestinal Gastrointestinal: Reports abdominal pain, nausea and vomiting; Denies constipation or diarrhea Genitourinary Genitourinary ED: Denies dysuria, hematuria or urinary urgency Musculoskeletal Musculoskeletal: Denies arthralgias or myalgias Integumentary Denies rash Neurologic Neurologic: Denies weakness EXAM <ANATOLY Varma - Last Filed: 04/11/24 22:06> Physical Exam Const Vital Signs: 04/11/24 17:26 04/11/24 21:25 Temperature 97.7 F L Temperature Source Temporal Pulse Rate 90 71 Respiratory Rate 18 16 Blood Pressure 124/97 H 99/74 Blood Pressure Mean 106 82 Pulse Ox 99 98 Oxygen Delivery Method Room Air Room Air Positive well nourished, well developed and no apparent distress General Appearance ED: well developed HEENT Reports normocephalic and head/scalp atraumatic Mouth ED: Yes moist mucous membranes normal Eyes PERRL and EOMs intact bilaterally Neck full ROM and supple Chest Wall inspection of chest normal Resp normal respiratory effort and clear to auscultation bilaterally Cardio regular rate and regular rhythm GI soft to palpation, non-distended and no masses GI Narrative: Minimal generalized tenderness to palpation, no rigidity or guarding. Back/Spine normal ROM and normal to inspection Extremity normal to inspection and full ROM Neuro oriented x3, CN's II-XII intact bilaterally, moves all extremities, no focal motor deficits and no sensory deficits noted Sensorium / Orientation: awake and alert Psych mental status grossly normal and thought process normal Skin no rashes or lesions noted and no wounds <Dr. Berry Benavidez MD - Last Filed: 04/11/24 22:23> Physical Exam Const Vital Signs: 04/11/24 17:26 04/11/24 21:25 Temperature 97.7 F L Temperature Source Temporal Pulse Rate 90 71 Respiratory Rate 18 16 Blood Pressure 124/97 H 99/74 Blood Pressure Mean 106 82 Pulse Ox 99 98 Oxygen Delivery Method Room Air Room Air [facility] <ANATOLY Varma - Last Filed: 04/11/24 22:06> [facility] Narrative Medical decision making narrative: Patient presenting today due to nausea and vomiting she has had over the last 5 days. She does have influenza A. She also has a history of cyclic vomiting syndrome and marijuana use. She has been seen here 3 times in the last 5 days. She was seen here yesterday and had a complete workup done including a CBC, CMP, lipase, and CT scan of the abdomen and pelvis with IV contrast. I did review her labs. There is no leukocytosis, her CMP showed a creatinine of 1.23 and slight elevation in her liver enzymes. Her CT scan was unremarkable. Repeat BMP was performed, her potassium is 3.1, IV potassium was ordered here. Her creatinine has gone down to 1.14. Initially she was given IV Benadryl and Reglan which she reports helped her yesterday, on reexamination she does not report much improvement of her nausea. She was then given Thorazine. On reexamination she reports improvement of her symptoms. She is tolerating p.o. fluids. She does have antiemetics at home to take as needed. She will be discharged home in stable condition. Lab Data Attestation: I reviewed the patient's lab results. Labs: Laboratory Results - last 24 hr 04/11/24 18:26 Sodium 137 Potassium 3.1 L Chloride 100 Carbon Dioxide 31.0 Anion Gap 6 BUN 12 Creatinine 1.14 H Estim Creat Clear Calc 60.44 Est GFR (MDRD) Af Amer 69 Est GFR (MDRD) Non-Af 57 L BUN/Creatinine Ratio 10.5 Glucose 130 H Calcium 9.3 <Dr. Berry Benavidez MD - Last Filed: 04/11/24 22:23> [facility] Lab Data Labs: Laboratory Results - last 24 hr 04/11/24 18:26 Sodium 137 Potassium 3.1 L Chloride 100 Carbon Dioxide 31.0 Anion Gap 6 BUN 12 Creatinine 1.14 H Estim Creat Clear Calc 60.44 Est GFR (MDRD) Af Amer 69 Est GFR (MDRD) Non-Af 57 L BUN/Creatinine Ratio 10.5 Glucose 130 H Calcium 9.3 Treatment and Re-Evaluation Comments:: I have personally performed a face to face assessment of the patient and have reviewed the JESSA Note. I performed a substantive portion of the visit including all aspects of the following. My kumar findings include: History is continued vomiting, diffuse abdominal pain, cough, malaise. Seen here with similar symptoms recently twice. Diagnosed with influenza A less than 1 week ago. History of cyclic vomiting. Exam is mild abdominal tenderness without guarding or rebound. No tachycardia. Alert, no distress. Medical Decison Making BMP/labs reviewed, confirming mild hypokalemia. Not much improved after IV Reglan and diphenhydramine. Will replace potassium while adding Thorazine and reevaluating. Other additions or changes: [None] Discharge Plan Triage Chief Complaint: Nausea/Vomiting ED Midlevel Provider: Rody Antoine ED Provider: Berry Benavidez Dx/Rx/DC Orders Clinical Impression: Cyclical vomiting, Cannabis use disorder, Influenza A, Hypokalemia Instructions: ED Cyclic Vomiting Syndrome, ED Hypokalemia Prescriptions: New promethazine 25 mg suppository 25 mg [place] Q6H PRN (Reason: nausea and vomiting) Qty: 12 0RF No Action pantoprazole 40 mg tablet,delayed release (DR/EC) 40 mg PO BID Qty: 60 1RF metoclopramide HCl 5 mg tablet 5 mg PO .qid 14 Days Qty: 56 0RF ondansetron 4 mg tablet,disintegrating 4 mg PO Q8H PRN PRN (Reason: Nausea) Qty: 10 0RF ondansetron 4 mg tablet,disintegrating 4 mg PO Q8H PRN PRN (Reason: Nausea) Qty: 10 0RF Primary Care Provider: Sergio Grover Referrals: Sergio Grover DO [Primary Care Provider] - Activity Restrictions/Additional Instructions: Stay well hydrated, follow-up with your PCP and return for any worsening symptoms. Print Language: Montserratian Disposition Disposition: Home, Self Care
[2024-04-11] MEDS: DiphenhydrAMINE 50 MG/ML Syringe 25 MG IV (18:30)
[2024-04-11] MEDS: 0.9% Normal Saline (1000mL) 1,000 ML 999 ML IV (18:31)
[2024-04-11] MEDS: Metoclopramide 10 MG/2 ML Vial 5 MG IV (18:31)
[2024-04-11 18:51] LABS: Anion Gap 6 (5-15); BUN 12 mg/dL (7-18); BUN/Creat Ratio 10.5 RATIO (10-20); Calcium,Total 9.3 mg/dL (8.5-10.1); Chloride 100 mmol/L (98-107); Creatinine, Serum 1.14 mg/dL (0.55-1.02); EST Glomerular Filtration Rate 57 mL/min (>60); Est Glom Filt Rate - Afr Amer 69 mL/min (>60); Estimated Creatinine Clearance 60.44 ml/min; Glucose 130 mg/dL (74-106); Potassium 3.1 mmol/L (3.5-5.1); Sodium Level 137 mmol/L (136-145)
[2024-04-11] MEDS: Ketorolac 15 MG/ML Vial IV (19:36)
[2024-04-11] MEDS: ChlorproMAZINE 50 MG/2 ML Ampul 25 MG IV (20:39)
[2024-04-11 21:25] VITALS: BP 99/74; PULSE 71; RESP 16; O2SAT 98
[2024-04-11] MEDS: Potassium Chloride 10mEq/100mL 10 MEQ/100 ML IV.SOLN. 100 MEQ IV BOLUS (21:56)
[2024-04-11 23:11] VITALS: BP 107/85; PULSE 73; RESP 16; TEMP 36.7; O2SAT 98
== END 2024-04-11 23:12 | disposition home or self-care (01) ==
PROVIDERS: Physician Assistant; Emergency Provider Emergency Medicine; PCP Student in an Organized Health Care Education/Training Program; Visit Provider Emergency Medicine
DX: R11.15 Cyclical vomiting syndrome unrelated to migraine (principal); J10.1 Influenza due to other identified influenza virus with other respiratory manifestations; F12.90 Cannabis use, unspecified, uncomplicated; E87.6 Hypokalemia; F17.210 Nicotine dependence, cigarettes, uncomplicated; K21.9 Gastro-esophageal reflux disease without esophagitis
CPT/HCPCS: 80048; 99283; A4216